=== PATIENT | female | born 1945 | race Caucasian/White ===

== ENCOUNTER 2017-08-10 13:45 | Outpatient (RCR) | payer MEDICARE, SELFPAY ==
--- NOTE | 2017-07-07 10:41 | PT.OTN ---
Current Diagnoses Plantar fascial fibromatosis (07/07/17) Transition note: On July 06, 2017 our therapy services consisting of Speech, Occupational, and Physical Therapy transitioned from the [employer] electronic documentation system to a new [employer] electronic documentation system.?? All documentation prior to July 06 can be found under [employer] saved data. From July 06 forward all medical record documentation will be in [employer] 6.1.
--- NOTE | 2017-07-07 11:58 | PT.OTN ---
Current Diagnoses Plantar fascial fibromatosis (07/07/17) Physical Therapy Treatment Note PT-OP-C Subjective Start: 07/07/17 11:39 Freq: Status: Active Protocol: Activity Type Activity Date Activity User E-Sign Co-Sign Detail Recorded Client Recorded Date Recorded By Document 07/07/17 11:40 [facility] [email or web address] 07/07/17 11:55 [facility] 07/07/17 11:40 OP-PT Subjective [Patient Comments] -Patient Comments Josefa reports she is continuing to have pain worse first thing in the AM and with walking. She has purchased a resting night splint and has worn this for the past few days -Patient Reported Progress Same PT-OP-Q Treatments Start: 07/07/17 11:39 Freq: Status: Active Protocol: Activity Type Activity Date Activity User E-Sign Co-Sign Detail Recorded Client Recorded Date Recorded By Document 07/07/17 11:40 [facility] [email or web address] 07/07/17 11:55 [facility] 07/07/17 11:40 Cardio Equipment [Recumbent Bicycle] -Duration (Minutes) 5 -Resistance lev 4 -Other biodex Therapeutic Exercises [Standing Exercises] 3 -Standing Exercise Name down dog yoga pose -Side bilateral -Reps/Minutes 4 minutes 2 -Standing Exercise Name active hamstring stretch -Side bilateral -Reps/Minutes 2 minutes 1 -Standing Exercise Name standing calf stretch on the YOVANI -Side bilateral -Reps/Minutes 4 min Manual Therapy Treatment [Soft Tissue Mobilization] 1 -Body Location plantar fascia -Mobilization Type Cross-Friction Myofascial Release Rolling Trigger Point Release -Intensity/Depth Deep -Body Position Supine -Comments MFR and cross friction massage to the plantar fascia and heel region . Pin and stretch was also used to help mobilize the fascia. Self-Care/Home Management Treatment [Activities] -Self-Care/Home Management Activities pt to use resting night splint and yoga toes each day and work on home stretching prgram as well as ice her heel PT-OP-R Modalities Start: 07/07/17 11:39 Freq: Status: Active Protocol: Activity Type Activity Date Activity User E-Sign Co-Sign Detail Recorded Client Recorded Date Recorded By Document 07/07/17 11:40 [facility] [email or web address] 07/07/17 11:55 [facility] 07/07/17 11:40 Hot Pack/Cold Pack [Treatment] Ice Massage -Patient Position Supine -Patient Tolerance Good Infrared Treatment [Treatment] plantar fascia -Duration (Minutes) 1 -Dosage (Joules) 60 -Body Position Supine -Continuous/Pulsed Continuous -Program or Protocal chronic muscle tendon pain Ultrasound Therapy [Treatment] right plantar fascia -Treatment Duration (minutes) 8 -Patient Position Supine -Coupling Medium Ultrasound Gel -Frequency Setting (mHz) 1 -Mode Setting Continuous -Intensity Setting (w/cm2) 1.5 -Patient Tolerance Good PT-OP-T Assessment and Plan Start: 07/07/17 11:39 Freq: Status: Active Protocol: Activity Type Activity Date Activity User E-Sign Co-Sign Detail Recorded Client Recorded Date Recorded By Document 07/07/17 11:40 [facility] [email or web address] 07/07/17 11:55 [facility] 07/07/17 11:40 Physical Therapy Assessment [Assessment Summary] -Assessment Josefa continues to have pain at the heel worse with walking and first thing in the AM. She is working on her stretching and icing daily. She has just gotten a resting night splint and has been using this the past few days now. She may benefit from a trial of iontophoresis with dexamethasone. I will call and talk to her doctor about getting a prescription for this. Physical Therapy Plan [Therapeutic Interventions] -Therapeutic Interventions Home Exercise Program Manual Therapy Self-Care/Home Management Soft Tissue Mobilization Therapeutic Exercises -Modalities Cold Pack/Ice Massage Iontophoresis Ultrasound [Next Visit Focus/Plan] -Next Visit Plan call MD requesting iontophoresis referral, continue working on breaking up the adhesions in the plantar fascia and instructions tot he patient to continue using her resting night splint at home and stretches for home
--- NOTE | 2017-07-20 12:56 | PT.OTN ---
Current Diagnoses Plantar fascial fibromatosis (07/20/17) Physical Therapy Treatment Note PT-OP-A Visit Information Start: 07/20/17 12:45 Freq: Status: Active Protocol: Document 07/20/17 12:45 [facility] (Rec: 07/20/17 12:55 [facility] [email or web address]) Out-Patient Physical Therapy Visit Information Visit Information Visit Type Treatment Note Visit Start Time 11:15 Visit Stop Time 12:00 Total Visit Minutes 45 Visit Number 7 Number of FUSE COILER Visits 0 Evaluation Information Evaluation Date 06/02/17 PT-OP-C Subjective Start: 07/07/17 11:39 Freq: Status: Active Protocol: Document 07/20/17 12:45 [facility] (Rec: 07/20/17 12:55 [facility] [email or web address]) OP-PT Subjective Patient Comments Patient Comments Josefa reports her heel is doing better and the night splint is really helping her. PT-OP-Q Treatments Start: 07/07/17 11:39 Freq: Status: Active Protocol: Document 07/20/17 12:45 [facility] (Rec: 07/20/17 12:55 [facility] [email or web address]) Therapeutic Exercises Standing Exercises 3 Standing Exercise Name down dog yoga pose Side bilateral Reps/Minutes 4 minutes 2 Standing Exercise Name active hamstring stretch Side bilateral Reps/Minutes 2 minutes 1 Standing Exercise Name standing calf stretch on the YOVANI Side bilateral Reps/Minutes 4 min Manual Therapy Treatment Soft Tissue Mobilization 1 Body Location plantar fascia Mobilization Type Cross-Friction Myofascial Release Rolling Trigger Point Release Intensity/Depth Deep Body Position Prone Comments MFR and cross friction massage to the plantar fascia and heel region. Pin and stretch was also used to help mobilize the fascia. PT-OP-R Modalities Start: 07/07/17 11:39 Freq: Status: Active Protocol: Document 07/20/17 12:45 [facility] (Rec: 07/20/17 12:55 [facility] [email or web address]) Iontophoresis Treatment right heel Treatment Medication Dexamethasone (-) Dispersive Electrode Placement right heel Treatment Duration (minutes) 240 Right Treatment Medication Dexamethasone (-) Medication Amount (mL) (ml) 1 PT-OP-T Assessment and Plan Start: 07/07/17 11:39 Freq: Status: Active Protocol: Document 07/20/17 12:45 [facility] (Rec: 07/20/17 12:55 [facility] [email or web address]) Physical Therapy Assessment Assessment Summary Assessment Josefa was given a trial of dexamethasone today over the right heel. To palpation she is not as point tender over the heel on her right foot. Physical Therapy Plan Frequency and Duration Frequency of Treatment 2x/Week Therapeutic Interventions Therapeutic Interventions Home Exercise Program Manual Therapy Self-Care/Home Management Soft Tissue Mobilization Therapeutic Exercises Next Visit Focus/Plan Next Visit Plan continue with stretches, HEP and manual therapy treatment. Check in on iontophoresis tolerance
--- NOTE | 2017-07-22 16:42 | PT.OTN ---
Current Diagnoses Plantar fascial fibromatosis (07/22/17) Physical Therapy Treatment Note PT-OP-A Visit Information Start: 07/20/17 12:45 Freq: Status: Active Protocol: Document 07/22/17 16:22 [facility] (Rec: 07/22/17 16:30 [facility] [email or web address]) Out-Patient Physical Therapy Visit Information Visit Information Visit Type Treatment Note Visit Start Time 13:00 Visit Stop Time 13:45 Total Visit Minutes 45 Visit Number 8 Number of JUNIOR BUSINESS ANALYST Visits 0 PT-OP-C Subjective Start: 07/07/17 11:39 Freq: Status: Active Protocol: Document 07/22/17 16:35 [facility] (Rec: 07/22/17 16:42 [facility] [email or web address]) OP-PT Subjective Patient Comments Patient Comments Josefa reports she felt the ionto phoresis helped last visit Patient Reported Progress Improving PT-OP-Q Treatments Start: 07/07/17 11:39 Freq: Status: Active Protocol: Document 07/22/17 16:35 [facility] (Rec: 07/22/17 16:42 [facility] [email or web address]) Cardio Equipment Recumbent Elliptical ([employer]) Duration (Minutes) 5 Therapeutic Exercises Standing Exercises 2 Standing Exercise Name active hamstring stretch Side bilateral Reps/Minutes 4 min 1 Standing Exercise Name standing calf stretch on the YOVANI Side bilateral Reps/Minutes 4 min Manual Therapy Treatment Soft Tissue Mobilization 1 Body Location plantar fascia Mobilization Type Cross-Friction Myofascial Release Rolling Trigger Point Release Intensity/Depth Deep Body Position Prone Comments MFR and cross friction massage to the plantar fascia and heel region. Pin and stretch was also used to help mobilize the fascia. PT-OP-R Modalities Start: 07/07/17 11:39 Freq: Status: Active Protocol: Document 07/22/17 16:35 [facility] (Rec: 07/22/17 16:42 [facility] [email or web address]) Hot Pack/Cold Pack Treatment Ice Massage Location right heel Patient Position Supine Patient Tolerance Good Iontophoresis Treatment right heel Treatment Medication Dexamethasone (-) Dispersive Electrode Placement right heel Treatment Duration (minutes) 240 Patient Tolerance Good Ultrasound Therapy Treatment right plantar fascia Treatment Duration (minutes) 8 Patient Position Supine Coupling Medium Ultrasound Gel Frequency Setting (mHz) 1 Mode Setting Continuous Intensity Setting (w/cm2) 1.5 Patient Tolerance Good PT-OP-T Assessment and Plan Start: 07/07/17 11:39 Freq: Status: Active Protocol: Document 07/22/17 16:35 [facility] (Rec: 07/22/17 16:42 [facility] [email or web address]) Physical Therapy Assessment Rehab Potential Rehabilitation Potential Good Assessment Summary Assessment Josefa is doing well with treatment and pain levels are decreasing. Her bony prominance that was in her heel is decreasing in size Physical Therapy Plan Frequency and Duration Frequency of Treatment 2x/Week Plan of Care Start Date 06/02/17 Plan of Care End Date 07/22/17 Therapeutic Interventions Therapeutic Interventions Home Exercise Program Manual Therapy Self-Care/Home Management Soft Tissue Mobilization Therapeutic Exercises Next Visit Focus/Plan Next Visit Plan continue with stretches, HEP, modalities and manual therapy treatment.
--- NOTE | 2017-07-22 16:43 | PT.OTN ---
Current Diagnoses Plantar fascial fibromatosis (07/22/17) Physical Therapy Treatment Note PT-OP-A Visit Information Start: 07/20/17 12:45 Freq: Status: Active Protocol: Document 07/22/17 16:22 [facility] (Rec: 07/22/17 16:30 [facility] [email or web address]) Out-Patient Physical Therapy Visit Information Visit Information Visit Type Treatment Note Visit Start Time 13:00 Visit Stop Time 13:45 Total Visit Minutes 45 Visit Number 8 Number of WIRE TURNING MACHINE OPERATOR Visits 0 PT-OP-C Subjective Start: 07/07/17 11:39 Freq: Status: Active Protocol: Document 07/22/17 16:35 [facility] (Rec: 07/22/17 16:42 [facility] [email or web address]) OP-PT Subjective Patient Comments Patient Comments Josefa reports she felt the ionto phoresis helped last visit Patient Reported Progress Improving PT-OP-Q Treatments Start: 07/07/17 11:39 Freq: Status: Active Protocol: Document 07/22/17 16:35 [facility] (Rec: 07/22/17 16:42 [facility] [email or web address]) Cardio Equipment Recumbent Elliptical ([employer]) Duration (Minutes) 5 Therapeutic Exercises Standing Exercises 2 Standing Exercise Name active hamstring stretch Side bilateral Reps/Minutes 4 min 1 Standing Exercise Name standing calf stretch on the YOVANI Side bilateral Reps/Minutes 4 min Manual Therapy Treatment Soft Tissue Mobilization 1 Body Location plantar fascia Mobilization Type Cross-Friction Myofascial Release Rolling Trigger Point Release Intensity/Depth Deep Body Position Prone Comments MFR and cross friction massage to the plantar fascia and heel region. Pin and stretch was also used to help mobilize the fascia. PT-OP-R Modalities Start: 07/07/17 11:39 Freq: Status: Active Protocol: Document 07/22/17 16:35 [facility] (Rec: 07/22/17 16:42 [facility] [email or web address]) Hot Pack/Cold Pack Treatment Ice Massage Location right heel Patient Position Supine Patient Tolerance Good Iontophoresis Treatment right heel Treatment Medication Dexamethasone (-) Dispersive Electrode Placement right heel Treatment Duration (minutes) 240 Patient Tolerance Good Ultrasound Therapy Treatment right plantar fascia Treatment Duration (minutes) 8 Patient Position Supine Coupling Medium Ultrasound Gel Frequency Setting (mHz) 1 Mode Setting Continuous Intensity Setting (w/cm2) 1.5 Patient Tolerance Good PT-OP-T Assessment and Plan Start: 07/07/17 11:39 Freq: Status: Active Protocol: Document 07/22/17 16:35 [facility] (Rec: 07/22/17 16:42 [facility] [email or web address]) Physical Therapy Assessment Rehab Potential Rehabilitation Potential Good Assessment Summary Assessment Josefa is doing well with treatment and pain levels are decreasing. Her bony prominance that was in her heel is decreasing in size Physical Therapy Plan Frequency and Duration Frequency of Treatment 2x/Week Plan of Care Start Date 06/02/17 Plan of Care End Date 07/22/17 Therapeutic Interventions Therapeutic Interventions Home Exercise Program Manual Therapy Self-Care/Home Management Soft Tissue Mobilization Therapeutic Exercises Next Visit Focus/Plan Next Visit Plan continue with stretches, HEP, modalities and manual therapy treatment.
--- NOTE | 2017-08-03 15:33 | PT.OTN ---
Current Diagnoses Plantar fascial fibromatosis (08/03/17) Physical Therapy Treatment Note PT-OP-A Visit Information Start: 07/20/17 12:45 Freq: Status: Active Protocol: Document 08/03/17 15:19 [facility] (Rec: 08/03/17 15:33 [facility] [email or web address]) Out-Patient Physical Therapy Visit Information Visit Information Visit Type Progress Note Visit Start Time 13:00 Visit Stop Time 13:45 Total Visit Minutes 45 Visit Number 9 Number of APPAREL SALES ASSOCIATE Visits 0 Evaluation Information Evaluation Date 06/02/17 PT-OP-C Subjective Start: 07/07/17 11:39 Freq: Status: Active Protocol: Document 08/03/17 15:19 [facility] (Rec: 08/03/17 15:33 [facility] [email or web address]) OP-PT Subjective Patient Comments Patient Comments Josefa reports she is doing better overall but she took care of her grandson these past two weeks and didn't do as much of her stretching and she can tell she is tighter. She is using the resting night splint each night and feels this really is helping Patient Reported Progress Improving OP-PT Pain Assessment Pain Assessment Grid Paper Pain Assessment Grid Completed Yes Comments Pain Comments pain 4/10 now PT-OP-K Range of Motion Start: 08/03/17 15:18 Freq: Status: Active Protocol: Document 08/03/17 15:19 [facility] (Rec: 08/03/17 15:33 [facility] [email or web address]) Ankle and Foot Goniometric Range of Motion Ankle and Foot Measured in Degrees Right Testing Position Supine Dorsiflexion with Knee Extended 10 Plantarflexion 8 Ankle and Foot ROM Limitations Comments limited in great toe extension due to bunion surgery with fusion PT-OP-Q Treatments Start: 07/07/17 11:39 Freq: Status: Active Protocol: Document 08/03/17 15:19 [facility] (Rec: 08/03/17 15:33 [facility] [email or web address]) Cardio Equipment Recumbent Elliptical ([employer]) Duration (Minutes) 5 Seat Position level 4 Therapeutic Exercises Standing Exercises 3 Standing Exercise Name down dog yoga pose Side bilateral Reps/Minutes 4 minutes 2 Standing Exercise Name active hamstring stretch Side bilateral Reps/Minutes 4 min 1 Standing Exercise Name standing calf stretch on the YOVANI Side bilateral Reps/Minutes 4 min Manual Therapy Treatment Soft Tissue Mobilization 1 Body Location plantar fascia Mobilization Type Cross-Friction Myofascial Release Rolling Trigger Point Release Intensity/Depth Deep Body Position Prone Comments MFR and cross friction massage to the plantar fascia and heel region. Pin and stretch was also used to help mobilize the fascia. PT-OP-R Modalities Start: 07/07/17 11:39 Freq: Status: Active Protocol: Document 08/03/17 15:19 [facility] (Rec: 08/03/17 15:33 [facility] [email or web address]) Iontophoresis Treatment right heel Treatment Medication Dexamethasone (-) Dispersive Electrode Placement right heel Treatment Duration (minutes) 240 Patient Tolerance Good Ultrasound Therapy Treatment right plantar fascia Treatment Duration (minutes) 8 Patient Position Supine Coupling Medium Ultrasound Gel Frequency Setting (mHz) 1 Mode Setting Continuous Intensity Setting (w/cm2) 1.5 Patient Tolerance Good PT-OP-T Assessment and Plan Start: 07/07/17 11:39 Freq: Status: Active Protocol: Document 08/03/17 15:19 [facility] (Rec: 08/03/17 15:33 [facility] [email or web address]) Physical Therapy Assessment Progress Towards Goals Progress Comments Josefa is making good progress towards her goals. Her pain levels are slowly starting to decrease and pain is reducing. She is not as sore first thing in the am as she was and she is able to walk a little more. Her symptoms progress as the day goes on. She has made improvements with calf flexibility and DF ankle ROM. She is limited in great toe extension due to her surgery and the plantar fascia attachments at the great toe are very tight. I have worked on MFR of the plantar fascia and Josefa has a home flexibility program that she is working hard on. She has also responded well to the iontophoresis and we have done 3 treatments of this. Josefa would like to be seen for new orthotics. She would benefit from continued PT Physical Therapy Plan Frequency and Duration Frequency of Treatment 1x/Week Plan of Care Start Date 08/03/17 Plan of Care End Date 09/28/17 Therapeutic Interventions Therapeutic Interventions Home Exercise Program Manual Therapy Self-Care/Home Management Soft Tissue Mobilization Therapeutic Exercises Modalities Cold Pack/Ice Massage Iontophoresis Ultrasound Next Visit Focus/Plan Next Visit Plan continue with stretches, HEP, modalities and manual therapy treatment. Please Sign and Return: I have reviewed this Plan of Care and certify that the skilled therapy services above are required to meet the patient???s needs. Physician Signature Date Printed Name and Credentials Clinical Instructor Signature Printed Name and Credentials
--- NOTE | 2017-08-03 15:41 | PT.OPPN ---
Current Diagnoses Plantar fascial fibromatosis (08/03/17) Physical Therapy Progress Note PT-OP-A Visit Information Start: 07/20/17 12:45 Freq: Status: Active Protocol: Document 08/03/17 15:19 [facility] (Rec: 08/03/17 15:33 [facility] [email or web address]) Out-Patient Physical Therapy Visit Information Visit Information Visit Type Progress Note Visit Start Time 13:00 Visit Stop Time 13:45 Total Visit Minutes 45 Visit Number 9 Number of CHART SNATCHER Visits 0 Evaluation Information Evaluation Date 06/02/17 PT-OP-C Subjective Start: 07/07/17 11:39 Freq: Status: Active Protocol: Document 08/03/17 15:19 [facility] (Rec: 08/03/17 15:33 [facility] [email or web address]) OP-PT Subjective Patient Comments Patient Comments Josefa reports she is doing better overall but she took care of her grandson these past two weeks and didn't do as much of her stretching and she can tell she is tighter. She is using the resting night splint each night and feels this really is helping Patient Reported Progress Improving OP-PT Pain Assessment Pain Assessment Grid Paper Pain Assessment Grid Completed Yes Comments Pain Comments pain 4/10 now PT-OP-K Range of Motion Start: 08/03/17 15:18 Freq: Status: Active Protocol: Document 08/03/17 15:19 [facility] (Rec: 08/03/17 15:33 [facility] [email or web address]) Ankle and Foot Goniometric Range of Motion Ankle and Foot Measured in Degrees Right Testing Position Supine Dorsiflexion with Knee Extended 10 Plantarflexion 8 Ankle and Foot ROM Limitations Comments limited in great toe extension due to bunion surgery with fusion PT-OP-T Assessment and Plan Start: 07/07/17 11:39 Freq: Status: Active Protocol: Document 08/03/17 15:19 [facility] (Rec: 08/03/17 15:33 [facility] [email or web address]) Physical Therapy Assessment Impairments Impairments Gait Pain Soft Tissue Mobility Tone Goals Two Impairment Myofascial restrictions of the right plantar fascia Short Term Goal (STG) Continue to improve myofascial mobility of the plantar fascia on the right foot One Impairment plantar fascial pain rated 4/ 10 Short Term Goal (STG) Josefa will continue to note a decrease in pain in her right plantar fascial attachment to the calcaneous and is able to continue to increase her walking distance without pain STG Duration 4 weeks Progress Towards Goals Progress Comments Josefa is making good progess towards her goals. Her pain levels are slowly starting to decrease and pain is reducing. She is not as sore first thing in the am as she was and she is able to walk a little more. Her symptoms progress as the day goes on. She has made improvements with calf flexibility and DF ankle ROM. She is limited in great toe extension due to her surgery and the plantar fascia attachments at the great toe are very tight. I have worked on MFR of the plantar fascia and Josefa has a home flexibility program that she is working hard on. She has also responded well to the iontophoresis and we have done 3 treatments of this. Josefa would like to be seen for new orthotics. She would benefit from continued PT Physical Therapy Plan Frequency and Duration Frequency of Treatment 1x/Week Plan of Care Start Date 08/03/17 Plan of Care End Date 09/28/17 Therapeutic Interventions Therapeutic Interventions Home Exercise Program Manual Therapy Self-Care/Home Management Soft Tissue Mobilization Therapeutic Exercises Modalities Cold Pack/Ice Massage Iontophoresis Ultrasound Next Visit Focus/Plan Next Visit Plan continue with stretches, HEP, modalities and manual therapy treatment. Please Sign and Return: I have reviewed this Plan of Care and certify that the skilled therapy services above are required to meet the patient???s needs. Physician Signature Date Printed Name and Credentials Clinical Instructor Signature Printed Name and Credentials
--- NOTE | 2017-08-10 17:30 | PT.OTN ---
Current Diagnoses Plantar fascial fibromatosis (08/10/17) Physical Therapy Treatment Note PT-OP-A Visit Information Start: 07/20/17 12:45 Freq: Status: Active Protocol: Document 08/10/17 17:26 [facility] (Rec: 08/10/17 17:30 [facility] [email or web address]) Out-Patient Physical Therapy Visit Information Visit Information Visit Type Treatment Note Visit Start Time 13:45 Visit Stop Time 14:30 Total Visit Minutes 45 Visit Number 10 Number of SYSTEMS ANALYST DEVELOPER Visits 0 PT-OP-C Subjective Start: 07/07/17 11:39 Freq: Status: Active Protocol: Document 08/10/17 17:26 [facility] (Rec: 08/10/17 17:30 [facility] [email or web address]) OP-PT Subjective Patient Comments Patient Comments Josefa states her symptoms continue to improve. She does have a appointment with Dr. Li to look into getting new orthotics made Patient Reported Progress Improving PT-OP-K Range of Motion Start: 08/03/17 15:18 Freq: Status: Active Protocol: Document 08/03/17 15:19 [facility] (Rec: 08/03/17 15:33 [facility] [email or web address]) Ankle and Foot Goniometric Range of Motion Ankle and Foot Measured in Degrees Right Testing Position Supine Dorsiflexion with Knee Extended 10 Plantarflexion 8 Ankle and Foot ROM Limitations Comments limited in great toe extension due to bunion surgery with fusion PT-OP-Q Treatments Start: 07/07/17 11:39 Freq: Status: Active Protocol: Document 08/10/17 17:26 [facility] (Rec: 08/10/17 17:30 [facility] [email or web address]) Therapeutic Exercises Standing Exercises 2 Standing Exercise Name active hamstring stretch Side bilateral Reps/Minutes 4 min 1 Standing Exercise Name standing calf stretch on the YOVANI Side bilateral Reps/Minutes 4 min Manual Therapy Treatment Soft Tissue Mobilization 1 Body Location plantar fascia Mobilization Type Cross-Friction Myofascial Release Rolling Trigger Point Release Intensity/Depth Deep Body Position Prone Comments MFR and cross friction massage to the plantar fascia and heel region. Pin and stretch was also used to help mobilize the fascia. PT-OP-R Modalities Start: 07/07/17 11:39 Freq: Status: Active Protocol: Document 08/10/17 17:30 [facility] (Rec: 08/10/17 17:30 [facility] [email or web address]) Iontophoresis Treatment right heel Treatment Medication Dexamethasone (-) Dispersive Electrode Placement right heel Treatment Duration (minutes) 240 Patient Tolerance Good Ultrasound Therapy Treatment right plantar fascia Treatment Duration (minutes) 8 Patient Position Supine Coupling Medium Ultrasound Gel Frequency Setting (mHz) 1 Mode Setting Continuous Intensity Setting (w/cm2) 1.5 PT-OP-T Assessment and Plan Start: 07/07/17 11:39 Freq: Status: Active Protocol: Document 08/10/17 17:26 [facility] (Rec: 08/10/17 17:30 [facility] [email or web address]) Physical Therapy Assessment Assessment Summary Assessment Josefa continues to note a decrease in her symptoms Physical Therapy Plan Frequency and Duration Frequency of Treatment 1x/Week Plan of Care Start Date 08/03/17 Plan of Care End Date 09/28/17 Therapeutic Interventions Therapeutic Interventions Home Exercise Program Manual Therapy Self-Care/Home Management Soft Tissue Mobilization Therapeutic Exercises Modalities Cold Pack/Ice Massage Iontophoresis Ultrasound Next Visit Focus/Plan Next Visit Plan continue with stretches, HEP, modalities and manual therapy treatment. Please Sign and Return: I have reviewed this Plan of Care and certify that the skilled therapy services above are required to meet the patient?s needs. Physician Signature Date Printed Name and Credentials Clinical Instructor Signature Printed Name and Credentials
--- NOTE | 2017-09-29 11:42 | PT.OPDS ---
Current Diagnoses Plantar fascial fibromatosis (08/10/17) Provider Visit Care Team Role Provider Type Latesha Fernandes PA-C Family Provider Advanced Floor Attendant Primary Care Provider Specialty: Internal Medicine Address: [address] [place] [address], [address] Email: Alejandra Li DPM Attending Provider Physician Specialty: Podiatry Address: [address] [place] [address], [phone] Email: [email or web address] Visit Number Visit Number 10 Discharge Summary PT-OP-C Subjective Start: 07/07/17 11:39 Freq: Status: Active Protocol: Document 08/10/17 17:26 [facility] (Rec: 08/10/17 17:30 [facility] [email or web address]) OP-PT Subjective Patient Comments Patient Comments Josefa states her symptoms continue to improve. She does have a appointment with Dr. Li to look into getting new orthotics made Patient Reported Progress Improving PT-OP-K Range of Motion Start: 08/03/17 15:18 Freq: Status: Active Protocol: Document 08/03/17 15:19 [facility] (Rec: 08/03/17 15:33 [facility] [email or web address]) Ankle and Foot Goniometric Range of Motion Ankle and Foot Measured in Degrees Right Testing Position Supine Dorsiflexion with Knee Extended 10 Plantarflexion 8 Ankle and Foot ROM Limitations Comments limited in great toe extension due to bunion surgery with fusion PT-OP-T Assessment and Plan Start: 07/07/17 11:39 Freq: Status: Active Protocol: Document 09/29/17 11:39 [facility] (Rec: 09/29/17 11:42 [facility] [email or web address]) Physical Therapy Assessment Progress Towards Goals Progress Towards Goals Progressing Toward Goals Progress Comments good progress overall towards goals Assessment Summary Assessment Overall Josefa has noted a decrease with her plantar fascitis symptoms. She was worked on her own these past two months and has stopped in for iontophoresis treatments only. She feels at this time she is doing well doing the stretches on her own and will keep up with her home program. She will be discharged from PT at this time Physical Therapy Plan Discharge Physical Therapy Discharge Reasons No Longer Attending PT Discharge Comments good overall progress towards goals and Josefa felt good enough to continued independently with her exercise program.
== END 2017-10-13 15:18 ==
LOC: PHYS 13:45
PROVIDERS: Family Provider Physician Assistant; PCP Physician Assistant; Visit Provider Podiatrist
DX: M72.2 Plantar fascial fibromatosis (principal)
CPT/HCPCS: 97035; 97110; 97140

== ENCOUNTER → 2017-09-27 10:11 | Outpatient (CLI) | payer MEDICARE, SELFPAY ==
--- NOTE | 2017-09-27 | DI.RAD.S_ITS ---
PROCEDURE: FL BARIUM SWALLOW W SPEECH INDICATIONS: . TECHNIQUE: Examination was conducted in conjunction with speech pathology per standard protocol. In the lateral projection, filming was performed of the patient swallowing. AP projection filming may also be performed with patient swallowing. COMPARISON: None. FINDINGS: Function: The oral preparatory phase appears normal, with proper containment. The subsequent oral propulsive phase, pharyngeal phase, and esophageal phase of swallowing also appear normal with all proffered substances. No laryngotracheal penetration or aspiration. No pathologic vallecular pooling. Transit of barium tablet through the cervical esophagus without holdup. Morphology: No cricopharyngeal bar is identified. No cervical esophageal webs. No Zenker's diverticulum. No strictures. IMPRESSION: 1. Normal modified barium swallow. Please see speech therapist report. 2. Degenerative cervical spine disease with disc narrowing C5-6 and C6-7, anterolisthesis and reversal of cervical lordosis at C4-5. Dictated by: Gino Kong M.D. on 09/27/2017 at 10:59 Approved by: Gino Kong M.D. on 09/27/2017 at 11:01
--- NOTE | 2017-09-27 11:45 | ST.SWALLOW ---
Visit Care Team Role Provider Type Latesha Fernandes PA-C Attending Provider Advanced Screedman/Laborer Family Provider Primary Care Provider Specialty: Internal Medicine Address: [address] [place] [address], [id number] Email: Modified Barium Swallow Study AUTOMOBILE PAINTER Modified Barium Swallow Study Start: 09/27/17 16:54 Freq: Status: Active Protocol: Document 09/27/17 11:45 [facility] (Rec: 09/27/17 17:11 [facility] [id number]) Modified Barium Swallow Study Total Time Visit Start Time 10:30 Visit Stop Time 11:30 Total Visit Minutes [address] Whitlock Reason for Referral Dysphagia Setting Setting Outpatient Care Patient Information Identification Type Name Date of Patient History Patient is a 72-year-old female referred by Dr Whitlock for a Modified Barium Swallow Study. She is in very good health and reported no respiratory issues, recent weight loss, decrease in appetite or neurological change. No reflux or esophageal issues reported. She did state that occasionally when she mixes food and liquids, she does begin to cough and clear her throat. She was concered about this because her late mother experienced similar issues as well as a significant decline in vocal quality and expressive communication. Josefa wanted to particiapte in the MBS to determine if her cough/ throat clear episodes are incidental or secondary to a developing oropharyngeal issue . Subjective Observations Patient arrived on time for her MBS. No family present. No complaint of pain. No difficulty following instructions throughout the study. Very coherent and able to comprehend education from AUTOMOBILE PAINTER without difficulty. Patient Positioning Position View Lat-A/P Imaging Lateral View Textures Administered Trials Presented Thin Liquid via Cup [place] Liquid via Cup Dysphagia Blenderized Textures Dysphagia Mechanical Textures Regular Textures Barium Tablet Oral Phase Source: MBSIMP (TM) (C) Bolus Specific Scoring Grid Lip Closure No Impairment (WNL) Tongue Control During Bolus Hold WFL Bolus Prep/Mastication WFL Bolus Transport/Lingual Motion WFL A/P Lingual Propulsion Delay No Oral Residue No Impairment (WNL) Residue Clearing No Impairment (WNL) Nasal Regurgitation No Additional Oral Phase Observations Observed minimally reduced lingua-velar seal, allowing mild posterior spillage into pharynx to the valleculae and pyriform sinuses. However, no other oral impairment observed . No oral dysphagia. Pharyngeal Phase Source: MBSIMP (TM) (C) Bolus Specific Scoring Grid Delayed Initiation of Pharyngeal Swallow Yes Number of Seconds Delayed (seconds) .5 seconds Soft Palate Elevation No Impairment (WNL) Tongue Base Strength/Range of Motion WFL Residue Along the Tongue Base Yes: Trace amount, clearing with double swallow Clearance of Residue Along Tongue Base No Impairment (WNL) Laryngeal Elevation No Impairment (WNL) Anterior Hyoid Movement No Impairment (WNL) Epiglottic Range of Motion No Impairment (WNL) Vallecular Residue No Clearance of Vallecular Residue No Impairment (WNL) Laryngeal Vestibular Closure No Impairment (WNL) Pharyngeal Stripping Wave No Impairment (WNL) Pharyngeal Contraction No Impairment (WNL) Posterior Pharyngeal Wall Residue No Clearance of Posterior Pharyngeal Wall No Impairment (WNL) Residue Upper Esophageal Sphincter Opening No Impairment (WNL) Residue in the Pyriform Sinuses No Clearance of Residue in the Pyriform No Impairment (WNL) Sinuses Esophageal Clearance Upright Position No Impairment (WNL) Pharyngoesophageal Backflow Observed No Additional Pharyngeal Phase Observations No pharyngeal impairment. Mild premature spillage into pharynx prior to swallow initiation, however, able to clear without penetration or aspiration. No residue observed after the swallow. Observed barium tablet to sit in valleculae after initial cup sip of thin, but immediately washed down with second cup sip of thin liquid. No pharyngeal dysphagia. A/P View Textures Administered Trials Presented Thin Liquid via Cup A/P View Observations Pharyngeal Contraction No Impairment (WNL) Vocal Fold Function Good Esophageal Function No Impairment (WNL) Esophageal Clearance Upright Position No Impairment (WNL) Additional Observations No significant findings in AP view. No impairment oberved. Please see Radiologist's report for further details. Esophageal Observations Esophageal Function No significant esophageal findings. Please see Radiologist's report for further details. Clinical Impressions Dysphagia Type No dysphagia Findings Patient presents with a normal swallow function. Observed mildly reduced lingua-velar seal, allowing minimal premature spillage into pharynx prior to swallow initiation. However, able to clear all trials without penetration or aspiration. No pharyngeal residue observed throughout the study. Observed trace tongue base residue after thin and nectar thick liquid trials, but cleared wtih additional dry swallows. At this time, no significant oropharyngeal findings to be reported. Patient received education from AUTOMOBILE PAINTER as well as images from her study to further clarify the nature of her swallow. She verbalized understanding of all information. AUTOMOBILE PAINTER recommended a brief pause before swallowing to improve lingua-velar seal and recommended that if the patient begins to experience an increase in coughing during intake, to return to her PCP for additional care. AUTOMOBILE PAINTER invited the patient to return for outpatient therapy should her condition worsen in the future, but at this time, no therapy is warranted. The patient verbalized understanding and agreed. Rehabilitation Potential Excellent Patient Appropriate for Therapy No: No dysphagia Recommendations Diet Liquids Order Thin Diet Order Regular Medication Recommendation As Tolerated Aspiration Precautions Recommended Precautions Upright at 90 Degrees Alternate Liquids/Solids Small Bites/Sips Additional Precautions Intentional swallowing behavior during meals Treatment Plan Additional Therapy Recommendations No therapy recommended at this time Placement Recommendation After Discharge Home Additional Recommendations/Comments If any increase in difficulty swallowing develops, please reconsult speech thearpy. If any voice issues arise, please reconsult speech therapy. At this time, patient presents with no impairment. No further intervention from speech therapy warranted at this time . Thank you for the consult. AUTOMOBILE PAINTER Oral Motor Exam Start: 09/27/17 16:54 Freq: Status: Active Protocol: Document 09/27/17 11:45 [facility] (Rec: 09/27/17 17:11 [facility] [id number]) Oral Motor Examination Face Facial Symmetry Symmetrical Facial Movement Controlled Mouth Teeth Characteristics Intact/Normal Pucker Lips Normal Smile Normal Puff Cheeks Normal Tongue Size Normal Tongue Movement Protrusion/Retraction Strength WNL Protrusion/Retraction Range of Movement Normal Protrusion/Retraction Coordination WNL Elevation/Depression Strength WNL Elevation/Despression Range of Movement Normal Elevation/Depression Coordination WNL Lateralization Strength WNL Lateralization Range of Movement Normal Lateralization Coordination WNL Palate Soft Palate Description Normal Hard Palate Description Normal Velopharyngeal Movement Normal Hyolaryngeal Movement Hyolaryngeal Movement Normal Elevation Normal Excursion Volitional Cough/Swallow Comments Strong and productive
--- NOTE | 2017-09-27 11:45 | ST.SWALLOW ---
Visit Care Team Role Provider Type Latesha Fernandes PA-C Attending Provider Advanced Nursing Agency Manager Family Provider Primary Care Provider Specialty: Internal Medicine Address: [address] [place] [address], [address] Email: Modified Barium Swallow Study FORENSIC IDENTIFICATION SPECIALIST Modified Barium Swallow Study Start: 09/27/17 16:54 Freq: Status: Active Protocol: Document 09/27/17 11:45 [facility] (Rec: 09/27/17 17:11 [facility] [id number]) Modified Barium Swallow Study Total Time Visit Start Time 10:30 Visit Stop Time 11:30 Total Visit Minutes 60 Referral Referring Physician Latesha Fernandes PA-C Reason for Referral Dysphagia Setting Setting Outpatient Care Patient Information Identification Type Name Date of Patient History Patient is a 72-year-old female referred by Dr Whitlock for a Modified Barium Swallow Study. She is in very good health and reported no respiratory issues, recent weight loss, decrease in appetite or neurological change. No reflux or esophageal issues reported. She did state that occasionally when she mixes food and liquids, she does begin to cough and clear her throat. She was concered about this because her late mother experienced similar issues as well as a significant decline in vocal quality and expressive communication. Josefa wanted to particiapte in the MBS to determine if her cough/ throat clear episodes are incidental or secondary to a developing oropharyngeal issue . Subjective Observations Patient arrived on time for her MBS. No family present. No complaint of pain. No difficulty following instructions throughout the study. Very coherent and able to comprehend education from FORENSIC IDENTIFICATION SPECIALIST without difficulty. Patient Positioning Position View Lat-A/P Imaging Lateral View Textures Administered Trials Presented Thin Liquid via Cup [place] Liquid via Cup Dysphagia Blenderized Textures Dysphagia Mechanical Textures Regular Textures Barium Tablet Oral Phase Source: MBSIMP (TM) (C) Bolus Specific Scoring Grid Lip Closure No Impairment (WNL) Tongue Control During Bolus Hold WFL Bolus Prep/Mastication WFL Bolus Transport/Lingual Motion WFL A/P Lingual Propulsion Delay No Oral Residue No Impairment (WNL) Residue Clearing No Impairment (WNL) Nasal Regurgitation No Additional Oral Phase Observations Observed minimally reduced lingua-velar seal, allowing mild posterior spillage into pharynx to the valleculae and pyriform sinuses. However, no other oral impairment observed . No oral dysphagia. Pharyngeal Phase Source: MBSIMP (TM) (C) Bolus Specific Scoring Grid Delayed Initiation of Pharyngeal Swallow Yes Number of Seconds Delayed (seconds) .5 seconds Soft Palate Elevation No Impairment (WNL) Tongue Base Strength/Range of Motion WFL Residue Along the Tongue Base Yes: Trace amount, clearing with double swallow Clearance of Residue Along Tongue Base No Impairment (WNL) Laryngeal Elevation No Impairment (WNL) Anterior Hyoid Movement No Impairment (WNL) Epiglottic Range of Motion No Impairment (WNL) Vallecular Residue No Clearance of Vallecular Residue No Impairment (WNL) Laryngeal Vestibular Closure No Impairment (WNL) Pharyngeal Stripping Wave No Impairment (WNL) Pharyngeal Contraction No Impairment (WNL) Posterior Pharyngeal Wall Residue No Clearance of Posterior Pharyngeal Wall No Impairment (WNL) Residue Upper Esophageal Sphincter Opening No Impairment (WNL) Residue in the Pyriform Sinuses No Clearance of Residue in the Pyriform No Impairment (WNL) Sinuses Esophageal Clearance Upright Position No Impairment (WNL) Pharyngoesophageal Backflow Observed No Additional Pharyngeal Phase Observations No pharyngeal impairment. Mild premature spillage into pharynx prior to swallow initiation, however, able to clear without penetration or aspiration. No residue observed after the swallow. Observed barium tablet to sit in valleculae after initial cup sip of thin, but immediately washed down with second cup sip of thin liquid. No pharyngeal dysphagia. A/P View Textures Administered Trials Presented Thin Liquid via Cup A/P View Observations Pharyngeal Contraction No Impairment (WNL) Vocal Fold Function Good Esophageal Function No Impairment (WNL) Esophageal Clearance Upright Position No Impairment (WNL) Additional Observations No significant findings in AP view. No impairment oberved. Please see Radiologist's report for further details. Esophageal Observations Esophageal Function No significant esophageal findings. Please see Radiologist's report for further details. Clinical Impressions Dysphagia Type No dysphagia Findings Patient presents with a normal swallow function. Observed mildly reduced lingua-velar seal, allowing minimal premature spillage into pharynx prior to swallow initiation. However, able to clear all trials without penetration or aspiration. No pharyngeal residue observed throughout the study. Observed trace tongue base residue after thin and nectar thick liquid trials, but cleared wtih additional dry swallows. At this time, no significant oropharyngeal findings to be reported. Patient received education from FORENSIC IDENTIFICATION SPECIALIST as well as images from her study to further clarify the nature of her swallow. She verbalized understanding of all information. FORENSIC IDENTIFICATION SPECIALIST recommended a brief pause before swallowing to improve lingua-velar seal and recommended that if the patient begins to experience an increase in coughing during intake, to return to her PCP for additional care. FORENSIC IDENTIFICATION SPECIALIST invited the patient to return for outpatient therapy should her condition worsen in the future, but at this time, no therapy is warranted. The patient verbalized understanding and agreed. Rehabilitation Potential Excellent Patient Appropriate for Therapy No: No dysphagia Recommendations Diet Liquids Order Thin Diet Order Regular Medication Recommendation As Tolerated Aspiration Precautions Recommended Precautions Upright at 90 Degrees Alternate Liquids/Solids Small Bites/Sips Additional Precautions Intentional swallowing behavior during meals Treatment Plan Additional Therapy Recommendations No therapy recommended at this time Placement Recommendation After Discharge Home Additional Recommendations/Comments If any increase in difficulty swallowing develops, please reconsult speech thearpy. If any voice issues arise, please reconsult speech therapy. At this time, patient presents with no impairment. No further intervention from speech therapy warranted at this time . Thank you for the consult. FORENSIC IDENTIFICATION SPECIALIST Oral Motor Exam Start: 09/27/17 16:54 Freq: Status: Active Protocol: Document 09/27/17 11:45 [facility] (Rec: 09/27/17 17:11 [facility] [id number]) Oral Motor Examination Face Facial Symmetry Symmetrical Facial Movement Controlled Mouth Teeth Characteristics Intact/Normal Pucker Lips Normal Smile Normal Puff Cheeks Normal Tongue Size Normal Tongue Movement Protrusion/Retraction Strength WNL Protrusion/Retraction Range of Movement Normal Protrusion/Retraction Coordination WNL Elevation/Depression Strength WNL Elevation/Despression Range of Movement Normal Elevation/Depression Coordination WNL Lateralization Strength WNL Lateralization Range of Movement Normal Lateralization Coordination WNL Palate Soft Palate Description Normal Hard Palate Description Normal Velopharyngeal Movement Normal Hyolaryngeal Movement Hyolaryngeal Movement Normal Elevation Normal Excursion Volitional Cough/Swallow Comments Strong and productive
== END ==
PROVIDERS: Family Provider Physician Assistant; PCP Physician Assistant; Visit Provider Physician Assistant
DX: R93.8 Abnormal findings on diagnostic imaging of other specified body structures (principal); M50.322 Other cervical disc degeneration at C5-C6 level; M43.12 Spondylolisthesis, cervical region
CPT/HCPCS: 74230; 92611

== ENCOUNTER → 2017-11-27 12:33 | Outpatient (CLI) | payer MEDICARE, SELFPAY ==
--- NOTE | 2017-11-27 | DI.MG.S_ITS ---
BILATERAL DIGITAL SCREENING MAMMOGRAM 3D/2D WITH CAD: 11/27/2017 CLINICAL: Routine screening. Family history of breast cancer. Comparison is made to exams dated: 09/24/2016 mammogram, 09/13/2014 mammogram, and 09/29/2012 mammogram - [facility]. The tissue of both breasts is heterogeneously dense. This may lower the sensitivity of mammography. Current study was also evaluated with a Computer Aided Detection (CAD) system. No significant masses, calcifications, or other findings are seen in either breast. There has been no significant interval change. IMPRESSION: NEGATIVE There is no mammographic evidence of malignancy. A 1 year screening mammogram is recommended. This exam was interpreted at Station ID: [id number]. NOTE: For mammograms, a report in lay terms will be sent to the patient. Approximately 15% of breast malignancies will not be visualized mammographically. In the management of a palpable breast mass, a negative mammogram must not discourage biopsy of a clinically suspicious lesion. Electronically Signed By: Gabriella rose/bobbi:11/29/2017 08:25:33 letter sent: Normal Exam ACR BI-RADS Category 1: Negative [id number]
== END ==
PROVIDERS: Family Provider Physician Assistant; PCP Physician Assistant; Visit Provider Physician Assistant
DX: Z12.31 Encounter for screening mammogram for malignant neoplasm of breast (principal); Z80.3 Family history of malignant neoplasm of breast
CPT/HCPCS: 77063; 77067

== ENCOUNTER → 2018-12-09 11:14 | Outpatient (CLI) | payer MEDICARE, SELFPAY ==
--- NOTE | 2018-12-09 | DI.MG.S_ITS ---
BILATERAL DIGITAL SCREENING MAMMOGRAM 3D/2D WITH CAD: 12/09/2018 CLINICAL: Routine screening. Family history of breast cancer. Comparison is made to exams dated: 11/27/2017 mammogram, 09/24/2016 mammogram, and 09/13/2014 mammogram - [facility]. The tissue of both breasts is heterogeneously dense. This may lower the sensitivity of mammography. Current study was also evaluated with a Computer Aided Detection (CAD) system. There are benign calcifications in both breasts. No significant masses, calcifications, or other findings are seen in either breast. There has been no significant interval change. IMPRESSION: There is no mammographic evidence of malignancy. A 1 year screening mammogram is recommended. This exam was interpreted at Station ID: [id number]. NOTE: For mammograms, a report in lay terms will be sent to the patient. Approximately 15% of breast malignancies will not be visualized mammographically. In the management of a palpable breast mass, a negative mammogram must not discourage biopsy of a clinically suspicious lesion. Electronically Signed By: Gabriella rose/bobbi:12/09/2018 12:06:32 letter sent: Normal Exam ACR BI-RADS Category 2: Benign Finding(s) 3342F
== END ==
PROVIDERS: Family Provider Physician Assistant; PCP Physician Assistant; Visit Provider Physician Assistant
DX: Z12.31 Encounter for screening mammogram for malignant neoplasm of breast (principal); Z80.3 Family history of malignant neoplasm of breast
CPT/HCPCS: 77063; 77067

== ENCOUNTER 2020-08-15 14:15 | Outpatient (RCR) | payer MEDICARE, OTHER, SELFPAY ==
--- NOTE | 2020-04-29 17:10 | PT.OIE ---
Current Diagnoses Unilateral primary osteoarthritis, left knee (04/29/20) Effusion, right knee (04/29/20) Pain in right knee (04/29/20) Muscle weakness (generalized) (04/29/20) Other abnormalities of gait and mobility (04/29/20) Visit Care Team Role Provider Type Latesha Fernandes PA-C Family Provider Advanced Manager Actuarial Primary Care Provider Specialty: Internal Medicine Address: [address] [place] [address], [id number] Email: [email or web address] [address] Marin MD Attending Provider Physician Referring Provider Specialty: Orthopedic Surgery Address: [address] [place] [address], [id number] Email: [email or web address] Physical Therapy Initial Evaluation PT-OP-A Visit Information Start: 04/23/20 17:37 Freq: Status: Active Protocol: Document 04/29/20 12:47 LRN (Rec: 04/29/20 14:04 LRN [id number]) Out-Patient Physical Therapy Visit Information Visit Information Visit Type Initial Evaluation Visit Start Time 12:47 Visit Stop Time 13:35 Total Visit Minutes 58 Visit Number 1 Evaluation Information Evaluation Date 04/29/20 Precautions Precautions Arthritis, Back & Neck pain since surgery. PT-OP-B Current Condition Start: 04/23/20 17:37 Freq: Status: Active Protocol: Document 04/29/20 12:47 LRN (Rec: 04/29/20 14:04 LRN [id number]) Current Condition History of Current Condition Onset Date 04/22/20 Current Complaints Decreased R knee mobility, must lift leg and walks with FWW. Dec sleep History of Current Condition Elective Day surgery @ [facility] for L TKA. Since home has been doing a home exercise program. She has been doing them 1-2x/day. DA staying with her until 2 days ago and she is expecting another DA to come in May. Future Testing and Treatments Planned Next appt is with Dr. Nava's assistance 05/07/20 (9:45a), appt with Dr Nava 06/04/20. Developmental History Developmental History R Anterior cruciate and MCL surgery after ski fall (1976) followed by surgery to repair and was in a full leg cast for 6 weeks. Pt reports arthritis set and has had injections in the R knee since . Treatment Goals Patient/Caregiver Goals Pt goal is to walk long distance (6 blks or 2-3 miles) . Walk normal without walker. Golf, water activities. Prior Functional Status Baseline Function- ADL's Independent Baseline Function- Mobility Independent Baseline Function- Gait Walked for ex without assistive device, pain third rigger R knee after 3 blks Baseline Function- Recreation/Hobbies Walks [employer]. Baseline Function- Other Able to sleeps mostly through the night. Current Functional Impairments (Reported) Functional Limitations- ADL's Decreased gait ability, using FWW and must lift leg to walk Aches. Functional Limitations- Mobility/Gait Ambs with FWW. Walks around the house Functional Limitations- Other Difficulty sleeping, sleeps 1 hour at time. Personal Factors Other Personal Factors That May Effect Lives alone, will have help Therapy/Recovery from daughter coming in May. PT-OP-C Subjective Start: 04/23/20 17:37 Freq: Status: Active Protocol: Document 04/29/20 12:47 LRN (Rec: 04/29/20 14:04 LRN [id number]) Patient Questionnaires Lower Extremity Functional Scale LEFS Score 6 LEFS Impairment 80 to 99% Impaired (Score 1-16 ) OP-PT Pain Assessment Pain Assessment Grid Paper Pain Assessment Grid Completed Yes Location Bilateral neck pain Pain Location Details Posterior bilateral neck pain Intensity 3 Scale Used Numeric (0 - 10) L LBP Pain Location Details L low back above Iliac Crest Intensity 3 Scale Used Numeric (0 - 10) L knee Pain Location Details Around L knee joint Intensity 7 Scale Used Numeric (0 - 10) Description Aching Frequency Constant PT-OP-G Mobility & Gait Start: 04/23/20 17:37 Freq: Status: Active Protocol: Document 04/29/20 12:47 LRN (Rec: 04/29/20 14:04 LRN [id number]) OP Mobility Evaluation Bed Mobility Supine to and from Sit Independent OP Gait Assessment Gait Gait Assistance Required: Independent Able to Maintain Weight Bearing Status Yes During Gait Assistive Devices Assistive Device Standard Walker Orthotic/Prosthetic Devices or Brace: No Gait Deviations General Gait Pattern Antalgic,Decreased Stride Length,Flexed Trunk Stair Climbing Evaluation Comments Stair Climbing Comments Pt has no stairs at home. PT-OP-J Posture/Palpation/Skin Start: 04/23/20 17:37 Freq: Status: Active Protocol: Document 04/29/20 12:47 LRN (Rec: 04/29/20 14:04 LRN [id number]) Palpation Assessment Location L knee Palpation Location Around L knee joint Palpation Findings Edema,Soft Tissue Tightness, Tenderness Palpation Details Increased temperature PT-OP-K Range of Motion Start: 04/23/20 17:37 Freq: Status: Active Protocol: Document 04/29/20 12:47 LRN (Rec: 04/29/20 14:04 LRN [id number]) Knee Goniometric Range of Motion Knee Supine R knee AROM Patient Position Supine Flexion Active (degrees) 131 Flexion Passive (degrees) 131 Extension Active (degrees) 0 Extension Passive (degrees) 0 Supine L knee AROM Patient Position Supine Flexion Active (degrees) 52 Flexion Passive (degrees) 52 Extension Active (degrees) 10 Extension Passive (degrees) 10 Comments Pain at end-range. Pt wearing MISHA hose Sitting L knee AROM Patient Position Sitting Comments 12-48 Sitting R knee ROM Patient Position Sitting Comments 0-118 Ankle and Foot Goniometric Range of Motion Ankle and Foot Left Dorsiflexion with Knee Extended 15 Plantarflexion 58 Right Testing Position Supine Dorsiflexion with Knee Extended 0 Plantarflexion 62 Comments 0-62 Was 10DF-8PF PT-OP-M Strength Start: 04/23/20 17:37 Freq: Status: Active Protocol: Document 04/29/20 12:47 LRN (Rec: 04/29/20 14:04 LRN [id number]) Knee Strength Knee Manual Muscle Testing Right Flexion (S2) 5 Normal Extension (L3) 5 Normal Left Flexion (S2) 3+ Fair+ Extension (L3) 3+ Fair+ PT-OP-Q Treatments Start: 04/23/20 17:37 Freq: Status: Active Protocol: Document 04/29/20 12:47 LRN (Rec: 04/29/20 14:04 LRN [id number]) Therapeutic Exercises Supine Exercises Heel Slides Supine Exercise Name Heel Slides with assist and without Side left Equipment Used Straps Reps/Minutes 10x each Comments Poor tolerance Ankle pumps Supine Exercise Name Ankle Pumps Side left Reps/Minutes 15x QS Supine Exercise Name QS Side left Reps/Minutes 10x with holds Manual Therapy Treatment Other Other Manual Treatments Assist pt with donning L compression stocking for edema management. Self-Care/Home Management Treatment Education Patient Education Pain Management Other Education Discussed & educated pt in results of evaluation and plan of care, discussed goals. Activities Self-Care/Home Management Activities Reviewed pt's current HEP with pt to continue current program and added heel slides with belt to assist and sitting knee ext/flex. Held supine knee hangs and held strengthening exercises. PT-OP-R Modalities Start: 04/23/20 17:37 Freq: Status: Active Protocol: Document 04/29/20 12:47 LRN (Rec: 04/29/20 14:04 LRN [id number]) Hot Pack/Cold Pack Treatment Cold Pack Location L Knee, legs on bolster Patient Position Hooklying Treatment Duration (minutes) 10 Patient Tolerance Good PT-OP-T Assessment and Plan Start: 04/23/20 17:37 Freq: Status: Active Protocol: Document 04/29/20 12:47 LRN (Rec: 04/29/20 14:04 LRN [id number]) Physical Therapy Assessment Rehab Potential Rehabilitation Potential Excellent Evaluation Complexity Number of Personal Factors/Comorbidities 1-2 Number of Body Systems Impaired 4 or More Clinical Presentation at Evaluation Evolving Impairments Impairments Activity Tolerance,Edema, Functional Mobility,Gait,Pain, ROM,Soft Tissue Mobility, Strength Other Impairments Left LBP rated 3/10, Bilateral neck pain rated 3/10 Goals Five Impairment L knee pain (5-7/10) Short Term Goal (STG) Dec pain at rest to 4-5/10 STG Duration 06/03/20 Jail Goal (LTG) Decr pain at rest to 0-1/10 and with walking activity to 2 -3/10. LTG Duration 07/28/20 Four Impairment Decreased L knee AROM (10-52 deg's) Short Term Goal (STG) Increase L knee AROM 0-105 deg 's STG Duration 06/03/20 Eye Surgeon Goal (LTG) Increase L knee AROM 0-125 deg 's. LTG Duration 07/28/20 Three Impairment Pt unable to return to her prior pool exercise program, independently Short Term Goal (STG) Pt scar will be healed with good scar mobility and L knee AROM at least 5-95 deg's STG Duration 05/27/20 Jail Goal (LTG) Pt able to get into the local pool and do her prior ex program with modifications as needed. LTG Duration 06/24/20 Two Impairment Antalgic gait using a FWW for safety Short Term Goal (STG) Pt will be able to walk with a normal gait pattern without a walker. STG Duration 05/20/20 Jail Goal (LTG) Pt will be able to walk a long distance of 6 blks or 2-3 miles with mild to no difficulty. LTG Duration 07/28/20 One Impairment Lacks appropriate self care HEP Jail Goal (LTG) Pt will be independent in a self care HEP for continued L knee/hip exercises. LTG Duration 07/28/20 Assessment Summary Assessment Pt is a 74 yo female s/p L TKA on 04/22/20. She presents with decreased ambulatory mobility, decreased L knee and ankle ROM and decreased L knee strength as expected. She has swelling in the LLE and needed assist with donning a MISHA hose. The pt may be hindered in her progress since she lives alone and is having help from friends until her daughter is able to come in May to help her. The pt will benefit from skilled physical therapy for her L TKA rehabilitation towards full independence and return of function. Physical Therapy Plan Frequency and Duration Frequency of Treatment 2x/Week Plan of Care Start Date 04/29/20 Plan of Care End Date 07/28/20 Therapeutic Interventions Therapeutic Interventions Gait Training,Home Exercise Program,Joint Mobilizations, Manual Therapy,Patient/ Caregiver Education,Self-Care/ Home Management,Soft Tissue Mobilization,Taping, Therapeutic Exercises Modalities Cold Pack/Ice Massage,Hot Packs Other Therapeutic Interventions Pt self care aquatic exercise when her incision has fully healed. Next Visit Focus/Plan Next Note Type Treatment Note Next Visit Plan L TKA rehabilitation, Lymphedema massage to LLE, use of cryotherapy and positioning to reduce edema. K-tape when bandage has been removed. Gait training and curb training & HEP progression when appropriate.
--- NOTE | 2020-04-29 17:10 | PT.OPPOC ---
Physical, Occupational & Speech Therapy At [facility] Current Diagnoses Unilateral primary osteoarthritis, left knee (04/29/20) Effusion, right knee (04/29/20) Pain in right knee (04/29/20) Muscle weakness (generalized) (04/29/20) Other abnormalities of gait and mobility (04/29/20) Visit Care Team Role Provider Type Latesha Fernandes PA-C Family Provider Advanced As[employer] Primary Care Provider Specialty: Internal Medicine Address: [address] [place] [address], [id number] Email: [email or web address] [facility] Onlinegar[facility] [address] Marin MD Attending Provider Physician Referring Provider Specialty: Orthopedic Surgery Address: [address] [place] [address], [address] Email: [email or web address] Plan Of Care PT-OP-T Assessment and Plan Start: 04/23/20 17:37 Freq: Status: Active Protocol: Document 04/29/20 12:47 LRN (Rec: 04/29/20 14:04 LRN [id number]) Physical Therapy Assessment Rehab Potential Rehabilitation Potential Excellent Evaluation Complexity Number of Personal Factors/Comorbidities 1-2 Number of Body Systems Impaired 4 or More Clinical Presentation at Evaluation Evolving Impairments Impairments Activity Tolerance,Edema, Functional Mobility,Gait,Pain, ROM,Soft Tissue Mobility, Strength Other Impairments Left LBP rated 3/10, Bilateral neck pain rated 3/10 Goals Five Impairment L knee pain (5-7/10) Short Term Goal (STG) Dec pain at rest to 4-5/10 STG Duration 06/03/20 Shipping Associate Goal (LTG) Decr pain at rest to 0-1/10 and with walking activity to 2 -3/10. LTG Duration 07/28/20 Four Impairment Decreased L knee AROM (10-52 deg's) Short Term Goal (STG) Increase L knee AROM 0-105 deg 's STG Duration 06/03/20 Residential Goal (LTG) Increase L knee AROM 0-125 deg 's. LTG Duration 07/28/20 Three Impairment Pt unable to return to her prior pool exercise program, independently Short Term Goal (STG) Pt scar will be healed with good scar mobility and L knee AROM at least 5-95 deg's STG Duration 05/27/20 Residential Goal (LTG) Pt able to get into the local pool and do her prior ex program with modifications as needed. LTG Duration 06/24/20 Two Impairment Antalgic gait using a FWW for safety Short Term Goal (STG) Pt will be able to walk with a normal gait pattern without a walker. STG Duration 05/20/20 Residential Goal (LTG) Pt will be able to walk a long distance of 6 blks or 2-3 miles with mild to no difficulty. LTG Duration 07/28/20 One Impairment Lacks appropriate self care HEP Shipping Associate Goal (LTG) Pt will be independent in a self care HEP for continued L knee/hip exercises. LTG Duration 07/28/20 Assessment Summary Assessment Pt is a 74 yo female s/p L TKA on 04/22/20. She presents with decreased ambulatory mobility, decreased L knee and ankle ROM and decreased L knee strength as expected. She has swelling in the LLE and needed assist with donning a MISHA hose. The pt may be hindered in her progress since she lives alone and is having help from friends until her daughter is able to come in May to help her. The pt will benefit from skilled physical therapy for her L TKA rehabilitation towards full independence and return of function. Physical Therapy Plan Frequency and Duration Frequency of Treatment 2x/Week Plan of Care Start Date 04/29/20 Plan of Care End Date 07/28/20 Therapeutic Interventions Therapeutic Interventions Gait Training,Home Exercise Program,Joint Mobilizations, Manual Therapy,Patient/ Caregiver Education,Self-Care/ Home Management,Soft Tissue Mobilization,Taping, Therapeutic Exercises Modalities Cold Pack/Ice Massage,Hot Packs Other Therapeutic Interventions Pt self care aquatic exercise when her incision has fully healed. Next Visit Focus/Plan Next Note Type Treatment Note Next Visit Plan L TKA rehabilitation, Lymphedema massage to LLE, use of cryotherapy and positioning to reduce edema. K-tape when bandage has been removed. Gait training and curb training & HEP progression when appropriate. Plan of Care Dates Plan of Care Start Date 04/29/20 Plan of Care End Date 07/28/20 Electronically Signed by: Gabriella Hirsch, PT 04/30/20 1650 Please Sign and Return: I have reviewed this Plan of Care and certify that the skilled therapy services above are required to meet the patient?s needs. Physician Signature Date Printed Name and Credentials Clinical Instructor Signature Printed Name and Credentials
--- NOTE | 2020-05-02 16:01 | PT.OTN ---
Current Diagnoses Unilateral primary osteoarthritis, left knee (05/02/20) Effusion, right knee (05/02/20) Pain in right knee (05/02/20) Muscle weakness (generalized) (05/02/20) Other abnormalities of gait and mobility (05/02/20) Physical Therapy Treatment Note PT-OP-A Visit Information Start: 04/23/20 17:37 Freq: Status: Active Protocol: Document 05/02/20 15:07 LRN (Rec: 05/02/20 16:00 LRN [id number]) Out-Patient Physical Therapy Visit Information Visit Information Visit Type Treatment Note Visit Start Time 15:07 Visit Stop Time 16:00 Total Visit Minutes 53 Visit Number 2 Evaluation Information Evaluation Date 04/29/20 Precautions Precautions Arthritis, Back & Neck pain since surgery. PT-OP-B Current Condition Start: 04/23/20 17:37 Freq: Status: Active Protocol: Document 04/29/20 12:47 LRN (Rec: 04/29/20 14:04 LRN [id number]) Current Condition History of Current Condition Onset Date 04/22/20 Current Complaints Decreased R knee mobility, must lift leg and walks with FWW. Dec sleep History of Current Condition Elective Day surgery @ [facility] for L TKA. Since home has been doing a home exercise program. She has been doing them 1-2x/day. DA staying with her until 2 days ago and she is expecting another DA to come in May. Future Testing and Treatments Planned Next appt is with Dr. Nava's assistance 05/07/20 (9:45a), appt with Dr Nava 06/04/20. Developmental History Developmental History R Anterior cruciate and MCL surgery after ski fall (1976) followed by surgery to repair and was in a full leg cast for 6 weeks. Pt reports arthritis set and has had injections in the R knee since . Treatment Goals Patient/Caregiver Goals Pt goal is to walk long distance (6 blks or 2-3 miles) . Walk normal without walker. Golf, water activities. 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 Baseline Function- Other Able to sleeps mostly through the night. Current Functional Impairments (Reported) Functional Limitations- ADL's Decreased gait ability, using FWW and must lift leg to walk Aches. Functional Limitations- Mobility/Gait Ambs with FWW. Walks around the house Functional Limitations- Other Difficulty sleeping, sleeps 1 hour at time. Personal Factors Other Personal Factors That May Effect Lives alone, will have help Therapy/Recovery from daughter coming in May. PT-OP-C Subjective Start: 04/23/20 17:37 Freq: Status: Active Protocol: Document 05/02/20 15:07 LRN (Rec: 05/02/20 16:00 LRN [id number]) OP-PT Subjective Patient Comments Patient Comments States she feels easier to bend and straighten the L knee as noticed when she sits on the edge of her bed at home. Forgot medications before therapy. PT-OP-G Mobility & Gait Start: 04/23/20 17:37 Freq: Status: Active Protocol: Document 04/29/20 12:47 LRN (Rec: 04/29/20 14:04 LRN [id number]) OP Mobility Evaluation Bed Mobility Supine to and from Sit Independent OP Gait Assessment Gait Gait Assistance Required: Independent Able to Maintain Weight Bearing Status Yes During Gait Assistive Devices Assistive Device Standard Walker Orthotic/Prosthetic Devices or Brace: No Gait Deviations General Gait Pattern Antalgic,Decreased Stride Length,Flexed Trunk Stair Climbing Evaluation Comments Stair Climbing Comments Pt has no stairs at home. PT-OP-J Posture/Palpation/Skin Start: 04/23/20 17:37 Freq: Status: Active Protocol: Document 04/29/20 12:47 LRN (Rec: 04/29/20 14:04 LRN [id number]) Palpation Assessment Location L knee Palpation Location Around L knee joint Palpation Findings Edema,Soft Tissue Tightness, Tenderness Palpation Details Increased temperature PT-OP-K Range of Motion Start: 04/23/20 17:37 Freq: Status: Active Protocol: Document 05/02/20 15:07 LRN (Rec: 05/02/20 16:00 LRN [id number]) Knee Goniometric Range of Motion Knee Supine L knee AROM Knee ROM WFL No Patient Position Supine Flexion Passive (degrees) 48 Extension Passive (degrees) 5 Comments Active assisted knee flex immediately after flexion ex's was 56 deg's Sitting L knee AROM Knee ROM WFL No Patient Position Sitting Flexion Active (degrees) 5 Extension Active (degrees) 45 PT-OP-M Strength Start: 04/23/20 17:37 Freq: Status: Active Protocol: Document 04/29/20 12:47 LRN (Rec: 04/29/20 14:04 LRN [id number]) Knee Strength Knee Manual Muscle Testing Right Flexion (S2) 5 Normal Extension (L3) 5 Normal Left Flexion (S2) 3+ Fair+ Extension (L3) 3+ Fair+ PT-OP-Q Treatments Start: 04/23/20 17:37 Freq: Status: Active Protocol: Document 05/02/20 15:07 LRN (Rec: 05/02/20 16:00 LRN [id number]) Therapeutic Exercises Supine Exercises SAQ Supine Exercise Name SAQ Side left Comments Pt moves very slow, AROM: 7 deg's Heels sets Supine Exercise Name Aaliyah heel sets Side left Equipment Used TBall Reps/Minutes 8' Heel Slides Supine Exercise Name Heel Slides with assist and without Side left Equipment Used Straps, TBall Reps/Minutes 8' Comments Poor tolerance, Pt moves very slow QS Supine Exercise Name QS Side left Equipment Used pillow roll Reps/Minutes 6' Comments Resting between contractions Sitting Exercises Heels slides (CKC) Sitting Exercise Name Heels slides (CKC) Side left Comments Pt moves very slow LAQ Sitting Exercise Name LAQ Side left Comments Pt moves very slow Manual Therapy Treatment Soft Tissue Mobilization L anteromedial knee Body Location L knee w/focus on anteronmedial area Mobilization Type Other Intensity/Depth Superficial Body Position Supine Comments Performed during knee flexion ex. PT-OP-R Modalities Start: 04/23/20 17:37 Freq: Status: Active Protocol: Document 05/02/20 15:07 LRN (Rec: 05/02/20 16:00 LRN [id number]) Hot Pack/Cold Pack Treatment Cold Pack Location L Knee, legs on bolster Patient Position Hooklying Treatment Duration (minutes) 10 Patient Tolerance Good Comments 10' time also during sitting L knee flexion. PT-OP-T Assessment and Plan Start: 04/23/20 17:37 Freq: Status: Active Protocol: Document 05/02/20 15:07 LRN (Rec: 05/02/20 16:00 LRN [id number]) Physical Therapy Assessment Goals Five Impairment L knee pain (5-7/10) Short Term Goal (STG) Dec pain at rest to 4-5/10 STG Duration 06/03/20 Bone Density Technician Goal (LTG) Decr pain at rest to 0-1/10 and with walking activity to 2 -3/10. LTG Duration 07/28/20 Four Impairment Decreased L knee AROM (10-52 deg's) Short Term Goal (STG) Increase L knee AROM 0-105 deg 's STG Duration 06/03/20 Bone Density Technician Goal (LTG) Increase L knee AROM 0-125 deg 's. LTG Duration 07/28/20 Three Impairment Pt unable to return to her prior pool exercise program, independently Short Term Goal (STG) Pt scar will be healed with good scar mobility and L knee AROM at least 5-95 deg's STG Duration 05/27/20 Bone Density Technician Goal (LTG) Pt able to get into the local pool and do her prior ex program with modifications as needed. LTG Duration 06/24/20 Two Impairment Antalgic gait using a FWW for safety Short Term Goal (STG) Pt will be able to walk with a normal gait pattern without a walker. STG Duration 05/20/20 Skilled Nursing Goal (LTG) Pt will be able to walk a long distance of 6 blks or 2-3 miles with mild to no difficulty. LTG Duration 07/28/20 One Impairment Lacks appropriate self care HEP Skilled Nursing Goal (LTG) Pt will be independent in a self care HEP for continued L knee/hip exercises. LTG Duration 07/28/20 Progress Towards Goals Progress Comments Active assisted L knee flexion after flex ex's ended 7-56 deg's. Assessment Summary Assessment Pt is a 74 yo female s/p L TKA on 04/22/20. Pt is having poor pain control and is not tolerating exercise well. SHe forgot her pain med before therapy today and will pre- medicate next session. Extension improved from 12 deg 's to 5 deg's, ending after ex 7 deg's. Ending AROM: 7-56 deg's. Physical Therapy Plan Frequency and Duration Frequency of Treatment 2x/Week Plan of Care Start Date 04/29/20 Plan of Care End Date 07/28/20 Next Visit Focus/Plan Next Note Type Treatment Note Next Visit Plan L TKA rehabilitation, Lymphedema massage to LLE, use of cryotherapy and positioning to reduce edema. K-tape when bandage has been removed. Gait training and curb training & HEP progression when appropriate.
--- NOTE | 2020-05-06 16:16 | PT.OTN ---
Current Diagnoses Unilateral primary osteoarthritis, left knee (05/06/20) Effusion, right knee (05/06/20) Pain in right knee (05/06/20) Muscle weakness (generalized) (05/06/20) Other abnormalities of gait and mobility (05/06/20) Physical Therapy Treatment Note PT-OP-A Visit Information Start: 04/23/20 17:37 Freq: Status: Active Protocol: Document 05/06/20 15:14 LRN (Rec: 05/06/20 16:15 LRN [id number]) Out-Patient Physical Therapy Visit Information Visit Information Visit Type Treatment Note Visit Start Time 15:14 Visit Stop Time 16:05 Total Visit Minutes 51 Visit Number 3 Evaluation Information Evaluation Date 04/29/20 Precautions Precautions Arthritis, Back & Neck pain since surgery. PT-OP-B Current Condition Start: 04/23/20 17:37 Freq: Status: Active Protocol: Document 04/29/20 12:47 LRN (Rec: 04/29/20 14:04 LRN [id number]) Current Condition History of Current Condition Onset Date 04/22/20 Current Complaints Decreased R knee mobility, must lift leg and walks with FWW. Dec sleep History of Current Condition Elective Day surgery @ [facility] for L TKA. Since home has been doing a home exercise program. She has been doing them 1-2x/day. DA staying with her until 2 days ago and she is expecting another DA to come in May. Future Testing and Treatments Planned Next appt is with Dr. Nava's assistance 05/07/20 (9:45a), appt with Dr Nava 06/04/20. Developmental History Developmental History R Anterior cruciate and MCL surgery after ski fall (1976) followed by surgery to repair and was in a full leg cast for 6 weeks. Pt reports arthritis set and has had injections in the R knee since . Treatment Goals Patient/Caregiver Goals Pt goal is to walk long distance (6 blks or 2-3 miles) . Walk normal without walker. Golf, water activities. 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 Baseline Function- Other Able to sleeps mostly through the night. Current Functional Impairments (Reported) Functional Limitations- ADL's Decreased gait ability, using FWW and must lift leg to walk Aches. Functional Limitations- Mobility/Gait Ambs with FWW. Walks around the house Functional Limitations- Other Difficulty sleeping, sleeps 1 hour at time. Personal Factors Other Personal Factors That May Effect Lives alone, will have help Therapy/Recovery from daughter coming in May. PT-OP-C Subjective Start: 04/23/20 17:37 Freq: Status: Active Protocol: Document 05/06/20 15:14 LRN (Rec: 05/06/20 16:15 LRN [id number]) OP-PT Subjective Patient Comments Patient Comments States she has been doing her exercises. States she had to get a vaccine shot yesterday so she couldn't elevate it much. PT-OP-G Mobility & Gait Start: 04/23/20 17:37 Freq: Status: Active Protocol: Document 04/29/20 12:47 LRN (Rec: 04/29/20 14:04 LRN [id number]) OP Mobility Evaluation Bed Mobility Supine to and from Sit Independent OP Gait Assessment Gait Gait Assistance Required: Independent Able to Maintain Weight Bearing Status Yes During Gait Assistive Devices Assistive Device Standard Walker Orthotic/Prosthetic Devices or Brace: No Gait Deviations General Gait Pattern Antalgic,Decreased Stride Length,Flexed Trunk Stair Climbing Evaluation Comments Stair Climbing Comments Pt has no stairs at home. PT-OP-J Posture/Palpation/Skin Start: 04/23/20 17:37 Freq: Status: Active Protocol: Document 04/29/20 12:47 LRN (Rec: 04/29/20 14:04 LRN [id number]) Palpation Assessment Location L knee Palpation Location Around L knee joint Palpation Findings Edema,Soft Tissue Tightness, Tenderness Palpation Details Increased temperature PT-OP-K Range of Motion Start: 04/23/20 17:37 Freq: Status: Active Protocol: Document 05/06/20 15:14 LRN (Rec: 05/06/20 16:15 LRN [id number]) Knee Goniometric Range of Motion Knee Supine R knee AROM Patient Position Supine Flexion Active (degrees) 131 Flexion Passive (degrees) 131 Extension Active (degrees) 0 Extension Passive (degrees) 0 Supine L knee AROM Knee ROM WFL No Patient Position Supine Flexion Active (degrees) 52 Extension Active (degrees) 12 Comments AA knee flex supine: 55 deg's AA knee flex w/leg elevated on T-Ball: 60 deg's. Sitting L knee AROM Knee ROM WFL No Patient Position Sitting Flexion Active (degrees) 55 Extension Active (degrees) 12 Comments Passive knee flex on Biodex is 59 deg's Passive knee flex after therapy is 64 deg's. Active knee ext after therapy is 12 deg's PT-OP-M Strength Start: 04/23/20 17:37 Freq: Status: Active Protocol: Document 04/29/20 12:47 LRN (Rec: 04/29/20 14:04 LRN [id number]) Knee Strength Knee Manual Muscle Testing Right Flexion (S2) 5 Normal Extension (L3) 5 Normal Left Flexion (S2) 3+ Fair+ Extension (L3) 3+ Fair+ PT-OP-Q Treatments Start: 04/23/20 17:37 Freq: Status: Active Protocol: Document 05/06/20 15:14 LRN (Rec: 05/06/20 16:15 LRN [id number]) Cardio Equipment Recumbent Elliptical (Biodex) Duration (Minutes) 6 Resistance 1 Seat Position 8 Other Mid range movement for R knee tolerance Therapeutic Exercises Supine Exercises SLR Supine Exercise Name SLR Side left Reps/Minutes 15x Heels sets Supine Exercise Name Aaliyah heel sets Side left Equipment Used TBall Reps/Minutes 8' Heel Slides Supine Exercise Name Heel Slides with assist and without Side left Equipment Used Straps, TBall Reps/Minutes 8' Comments Poor tolerance, Pt moves very slow Ankle pumps Supine Exercise Name Ankle Pumps Side left Equipment Used Red TBall Reps/Minutes 30x QS Supine Exercise Name QS Side left Equipment Used Red TBall Reps/Minutes 6' Comments Resting between contractions Sitting Exercises Passive knee flex Sitting Exercise Name Fwd scooting in sitting Side right Comments R knee passive flex is 64 deg' s Heels slides (CKC) Sitting Exercise Name Heels slides (CKC) Side left Comments Pt moves very slow LAQ Sitting Exercise Name LAQ (focus on flex) Side left Comments Pt moves very slow Manual Therapy Treatment Soft Tissue Mobilization Lymphatic drainage Body Location Lymph massage with L leg in elevation Mobilization Type Manual Lymphatic Drainage Intensity/Depth Superficial Body Position Supine L anteromedial knee Body Location L knee w/focus on anteronmedial area Mobilization Type Other Intensity/Depth Superficial Body Position Supine Comments Performed during knee flexion ex. PT-OP-R Modalities Start: 04/23/20 17:37 Freq: Status: Active Protocol: Document 05/06/20 15:14 LRN (Rec: 05/06/20 16:15 LRN [id number]) Hot Pack/Cold Pack Treatment Cold Pack Location L Knee, legs on bolster Patient Position Hooklying Treatment Duration (minutes) 10 Patient Tolerance Good Comments Ice pack under knee. PT-OP-T Assessment and Plan Start: 04/23/20 17:37 Freq: Status: Active Protocol: Document 05/06/20 15:14 LRN (Rec: 05/06/20 16:15 LRN [id number]) Physical Therapy Assessment Goals Five Impairment L knee pain (5-7/10) Short Term Goal (STG) Dec pain at rest to 4-5/10 STG Duration 06/03/20 Payroll And Benefits Coordinator Goal (LTG) Decr pain at rest to 0-1/10 and with walking activity to 2 -3/10. LTG Duration 07/28/20 Four Impairment Decreased L knee AROM (10-52 deg's) Short Term Goal (STG) Increase L knee AROM 0-105 deg 's. (05/06/20: L knee AROM sitting is 12-55 to start, ending therapy is 15-64 deg's; supine is 12-55 deg's) STG Duration 06/03/20 Payroll And Benefits Coordinator Goal (LTG) Increase L knee AROM 0-125 deg 's. LTG Duration 07/28/20 Three Impairment Pt unable to return to her prior pool exercise program, independently Short Term Goal (STG) Pt scar will be healed with good scar mobility and L knee AROM at least 5-95 deg's STG Duration 05/27/20 Custodial Goal (LTG) Pt able to get into the local pool and do her prior ex program with modifications as needed. LTG Duration 06/24/20 Two Impairment Antalgic gait using a FWW for safety Short Term Goal (STG) Pt will be able to walk with a normal gait pattern without a walker. STG Duration 05/20/20 Custodial Goal (LTG) Pt will be able to walk a long distance of 6 blks or 2-3 miles with mild to no difficulty. LTG Duration 07/28/20 One Impairment Lacks appropriate self care HEP Payroll And Benefits Coordinator Goal (LTG) Pt will be independent in a self care HEP for continued L knee/hip exercises. LTG Duration 07/28/20 Progress Towards Goals Progress Comments Active L knee flex in sitting improved from 55 deg's to start to 64 deg's at treatment end. Assessment Summary Assessment Pt is a 74 yo female s/p L TKA on 04/22/20. Pt ambs in with slow controlled and proper gait mechanics. Her L knee AROM improved from last session to initial eval measurements to start, but improved in knee flexion at end of therapy due to focus of therapy being on improving flexion. Pt appears to be doing more exercises at home. Physical Therapy Plan Frequency and Duration Frequency of Treatment 2x/Week Plan of Care Start Date 04/29/20 Plan of Care End Date 07/28/20 Next Visit Focus/Plan Next Note Type Treatment Note Next Visit Plan L TKA rehabilitation, increase self ROM ex on Biodex, cont lymphedema massage to LLE, use of cryotherapy and positioning to reduce edema. K-tape when bandage has been removed. Curb training & HEP progression when appropriate.
--- NOTE | 2020-05-10 16:38 | PT.OTN ---
Current Diagnoses Unilateral primary osteoarthritis, left knee (05/10/20) Effusion, right knee (05/10/20) Pain in right knee (05/10/20) Muscle weakness (generalized) (05/10/20) Other abnormalities of gait and mobility (05/10/20) Physical Therapy Treatment Note PT-OP-A Visit Information Start: 04/23/20 17:37 Freq: Status: Active Protocol: Document 05/10/20 13:38 LRN (Rec: 05/10/20 14:19 LRN [id number]) Out-Patient Physical Therapy Visit Information Visit Information Visit Type Treatment Note Visit Start Time 13:38 Visit Stop Time 14:28 Total Visit Minutes 50 Visit Number 4 Evaluation Information Evaluation Date 04/29/20 Precautions Precautions Arthritis, Back & Neck pain since surgery. PT-OP-B Current Condition Start: 04/23/20 17:37 Freq: Status: Active Protocol: Document 04/29/20 12:47 LRN (Rec: 04/29/20 14:04 LRN [id number]) Current Condition History of Current Condition Onset Date 04/22/20 Current Complaints Decreased R knee mobility, must lift leg and walks with FWW. Dec sleep History of Current Condition Elective Day surgery @ [facility] for L TKA. Since home has been doing a home exercise program. She has been doing them 1-2x/day. DA staying with her until 2 days ago and she is expecting another DA to come in May. Future Testing and Treatments Planned Next appt is with Dr. Nava's assistance 05/07/20 (9:45a), appt with Dr Nava 06/04/20. Developmental History Developmental History R Anterior cruciate and MCL surgery after ski fall (1976) followed by surgery to repair and was in a full leg cast for 6 weeks. Pt reports arthritis set and has had injections in the R knee since . Treatment Goals Patient/Caregiver Goals Pt goal is to walk long distance (6 blks or 2-3 miles) . Walk normal without walker. Golf, water activities. 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 Baseline Function- Other Able to sleeps mostly through the night. Current Functional Impairments (Reported) Functional Limitations- ADL's Decreased gait ability, using FWW and must lift leg to walk Aches. Functional Limitations- Mobility/Gait Ambs with FWW. Walks around the house Functional Limitations- Other Difficulty sleeping, sleeps 1 hour at time. Personal Factors Other Personal Factors That May Effect Lives alone, will have help Therapy/Recovery from daughter coming in May. PT-OP-C Subjective Start: 04/23/20 17:37 Freq: Status: Active Protocol: Document 05/10/20 13:38 LRN (Rec: 05/10/20 14:19 LRN [id number]) OP-PT Subjective Patient Comments Patient Comments States she saw physician home care assistant and was suggested manipulation that scared pt; therefore she is determined to improve flex to 115 deg's by end of month. States she was measured at 72 deg's flex. Taking less Tylenol. PT-OP-G Mobility & Gait Start: 04/23/20 17:37 Freq: Status: Active Protocol: Document 04/29/20 12:47 LRN (Rec: 04/29/20 14:04 LRN [id number]) OP Mobility Evaluation Bed Mobility Supine to and from Sit Independent OP Gait Assessment Gait Gait Assistance Required: Independent Able to Maintain Weight Bearing Status Yes During Gait Assistive Devices Assistive Device Standard Walker Orthotic/Prosthetic Devices or Brace: No Gait Deviations General Gait Pattern Antalgic,Decreased Stride Length,Flexed Trunk Stair Climbing Evaluation Comments Stair Climbing Comments Pt has no stairs at home. PT-OP-J Posture/Palpation/Skin Start: 04/23/20 17:37 Freq: Status: Active Protocol: Document 04/29/20 12:47 LRN (Rec: 04/29/20 14:04 LRN [id number]) Palpation Assessment Location L knee Palpation Location Around L knee joint Palpation Findings Edema,Soft Tissue Tightness, Tenderness Palpation Details Increased temperature PT-OP-K Range of Motion Start: 04/23/20 17:37 Freq: Status: Active Protocol: Document 05/10/20 13:38 LRN (Rec: 05/10/20 14:19 LRN [id number]) Knee Goniometric Range of Motion Knee Supine L knee AROM Knee ROM WFL No Patient Position Supine Flexion Active (degrees) 70 Comments AA knee flex supine: 70 deg's AA knee flex w/leg elevated on T-Ball: 70 deg's. Sitting L knee AROM Knee ROM WFL No Patient Position Sitting Flexion Active (degrees) 68 PT-OP-M Strength Start: 04/23/20 17:37 Freq: Status: Active Protocol: Document 04/29/20 12:47 LRN (Rec: 04/29/20 14:04 LRN [id number]) Knee Strength Knee Manual Muscle Testing Right Flexion (S2) 5 Normal Extension (L3) 5 Normal Left Flexion (S2) 3+ Fair+ Extension (L3) 3+ Fair+ PT-OP-Q Treatments Start: 04/23/20 17:37 Freq: Status: Active Protocol: Document 05/10/20 13:38 LRN (Rec: 05/10/20 14:19 LRN [id number]) Cardio Equipment Recumbent Elliptical (Reachable) Duration (Minutes) 8 Resistance 1 Seat Position 8 Other Mid range movement for R knee tolerance Therapeutic Exercises Supine Exercises SLR Supine Exercise Name SLR Side left Reps/Minutes 15x Heels sets Supine Exercise Name Aaliyah heel sets Side left Equipment Used TBall Reps/Minutes 4' Heel Slides Supine Exercise Name Heel Slides with assist and without Side left Equipment Used Straps, TBall Reps/Minutes 12' Comments Poor tolerance, Pt moves very slow Manual Therapy Treatment Soft Tissue Mobilization Lymphatic drainage Body Location Lymph massage with L leg in elevation Mobilization Type Manual Lymphatic Drainage Intensity/Depth Superficial Body Position Supine Comments Training with pt following I/S 's and doing self massage. Self-Care/Home Management Treatment Education Patient Education Home Exercise Program Other Education Educated pt in lymph massage for edema management. Activities Self-Care/Home Management Activities Issued and reviewed handouts for lymph do's/don'ts and discussed precautions appropriate for post surgical vs full LE lymphedema. I/S pt in lymph massage. PT-OP-R Modalities Start: 04/23/20 17:37 Freq: Status: Active Protocol: Document 05/06/20 15:14 LRN (Rec: 05/06/20 16:15 LRN [id number]) Hot Pack/Cold Pack Treatment Cold Pack Location L Knee, legs on bolster Patient Position Hooklying Treatment Duration (minutes) 10 Patient Tolerance Good Comments Ice pack under knee. PT-OP-T Assessment and Plan Start: 04/23/20 17:37 Freq: Status: Active Protocol: Document 05/10/20 13:38 LRN (Rec: 05/10/20 14:19 LRN [id number]) Physical Therapy Assessment Goals Five Impairment L knee pain (5-7/10) Short Term Goal (STG) Dec pain at rest to 4-5/10 STG Duration 06/03/20 Client Service Administrator Goal (LTG) Decr pain at rest to 0-1/10 and with walking activity to 2 -3/10. LTG Duration 07/28/20 Four Impairment Decreased L knee AROM (10-52 deg's) Short Term Goal (STG) Increase L knee AROM 0-105 deg 's. (05/06/20: L knee AROM sitting is 12-55 to start, ending therapy is 15-64 deg's; supine is 12-55 deg's) STG Duration 06/03/20 Client Service Administrator Goal (LTG) Increase L knee AROM 0-125 deg 's. LTG Duration 07/28/20 Three Impairment Pt unable to return to her prior pool exercise program, independently Short Term Goal (STG) Pt scar will be healed with good scar mobility and L knee AROM at least 5-95 deg's STG Duration 05/27/20 Client Service Administrator Goal (LTG) Pt able to get into the local pool and do her prior ex program with modifications as needed. LTG Duration 06/24/20 Two Impairment Antalgic gait using a FWW for safety Short Term Goal (STG) Pt will be able to walk with a normal gait pattern without a walker. STG Duration 05/20/20 Client Service Administrator Goal (LTG) Pt will be able to walk a long distance of 6 blks or 2-3 miles with mild to no difficulty. LTG Duration 07/28/20 One Impairment Lacks appropriate self care HEP Client Service Administrator Goal (LTG) Pt will be independent in a self care HEP for continued L knee/hip exercises. HEP TO DATE: INSTRUCTIONS GIVEN: *Do's/Don 'ts of lymph massage. *LE self lymph massage. LTG Duration 07/28/20 (05/10/20: Progressing) Progress Towards Goals Progress Comments Improved L knee active flex to 70 deg's after treatment (was 55 deg's last session). Assessment Summary Assessment Pt L knee AROM improved 6 deg' s. Pt is having a lot of pain at end-range stretching into flexion, probably due to edema . Pt is highly motivated to improve her ROM. She is not a good candidate for use of K- tape due to allergic reactions to Latex; therefore will defer use. Physical Therapy Plan Frequency and Duration Frequency of Treatment 2x/Week Plan of Care Start Date 04/29/20 Plan of Care End Date 07/28/20 Next Visit Focus/Plan Next Note Type Treatment Note Next Visit Plan L TKA rehabilitation. Review self lymph massage and add lymph exercise program. Increase self ROM ex on Biodex , lymphedema massage to LLE if pt wants to remove her compression hose. Cryotherap/ Cryocuff and positioning to reduce edema. Curb training & HEP progression when appropriate.
--- NOTE | 2020-05-14 17:20 | PT.OTN ---
Current Diagnoses Unilateral primary osteoarthritis, left knee (05/14/20) Effusion, right knee (05/14/20) Pain in right knee (05/14/20) Muscle weakness (generalized) (05/14/20) Other abnormalities of gait and mobility (05/14/20) Physical Therapy Treatment Note PT-OP-A Visit Information Start: 04/23/20 17:37 Freq: Status: Active Protocol: Document 05/14/20 10:29 LRN (Rec: 05/14/20 11:19 LRN [id number]) Out-Patient Physical Therapy Visit Information Visit Information Visit Type Treatment Note Visit Start Time 10:29 Visit Stop Time 11:11 Total Visit Minutes 42 Visit Number 5 Evaluation Information Evaluation Date 04/29/20 Precautions Precautions Arthritis, Back & Neck pain since surgery. PT-OP-B Current Condition Start: 04/23/20 17:37 Freq: Status: Active Protocol: Document 04/29/20 12:47 LRN (Rec: 04/29/20 14:04 LRN [id number]) Current Condition History of Current Condition Onset Date 04/22/20 Current Complaints Decreased R knee mobility, must lift leg and walks with FWW. Dec sleep History of Current Condition Elective Day surgery @ [facility] for L TKA. Since home has been doing a home exercise program. She has been doing them 1-2x/day. DA staying with her until 2 days ago and she is expecting another DA to come in May. Future Testing and Treatments Planned Next appt is with Dr. Nava's assistance 05/07/20 (9:45a), appt with Dr Nava 06/04/20. Developmental History Developmental History R Anterior cruciate and MCL surgery after ski fall (1976) followed by surgery to repair and was in a full leg cast for 6 weeks. Pt reports arthritis set and has had injections in the R knee since . Treatment Goals Patient/Caregiver Goals Pt goal is to walk long distance (6 blks or 2-3 miles) . Walk normal without walker. Golf, water activities. 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 Baseline Function- Other Able to sleeps mostly through the night. Current Functional Impairments (Reported) Functional Limitations- ADL's Decreased gait ability, using FWW and must lift leg to walk Aches. Functional Limitations- Mobility/Gait Ambs with FWW. Walks around the house Functional Limitations- Other Difficulty sleeping, sleeps 1 hour at time. Personal Factors Other Personal Factors That May Effect Lives alone, will have help Therapy/Recovery from daughter coming in May. PT-OP-C Subjective Start: 04/23/20 17:37 Freq: Status: Active Protocol: Document 05/14/20 10:29 LRN (Rec: 05/14/20 11:19 LRN [id number]) OP-PT Subjective Patient Comments Patient Comments States she has been doing her exercises. PT-OP-G Mobility & Gait Start: 04/23/20 17:37 Freq: Status: Active Protocol: Document 04/29/20 12:47 LRN (Rec: 04/29/20 14:04 LRN [id number]) OP Mobility Evaluation Bed Mobility Supine to and from Sit Independent OP Gait Assessment Gait Gait Assistance Required: Independent Able to Maintain Weight Bearing Status Yes During Gait Assistive Devices Assistive Device Standard Walker Orthotic/Prosthetic Devices or Brace: No Gait Deviations General Gait Pattern Antalgic,Decreased Stride Length,Flexed Trunk Stair Climbing Evaluation Comments Stair Climbing Comments Pt has no stairs at home. PT-OP-J Posture/Palpation/Skin Start: 04/23/20 17:37 Freq: Status: Active Protocol: Document 04/29/20 12:47 LRN (Rec: 04/29/20 14:04 LRN [id number]) Palpation Assessment Location L knee Palpation Location Around L knee joint Palpation Findings Edema,Soft Tissue Tightness, Tenderness Palpation Details Increased temperature PT-OP-K Range of Motion Start: 04/23/20 17:37 Freq: Status: Active Protocol: Document 05/14/20 10:29 LRN (Rec: 05/14/20 11:19 LRN [id number]) Knee Goniometric Range of Motion Knee Sitting L knee AROM Knee ROM WFL No Patient Position Sitting Flexion Active (degrees) 68 PT-OP-M Strength Start: 04/23/20 17:37 Freq: Status: Active Protocol: Document 04/29/20 12:47 LRN (Rec: 04/29/20 14:04 LRN [id number]) Knee Strength Knee Manual Muscle Testing Right Flexion (S2) 5 Normal Extension (L3) 5 Normal Left Flexion (S2) 3+ Fair+ Extension (L3) 3+ Fair+ PT-OP-Q Treatments Start: 04/23/20 17:37 Freq: Status: Active Protocol: Document 05/14/20 10:29 LRN (Rec: 05/14/20 11:19 LRN [id number]) Cardio Equipment Recumbent Elliptical (Biodex) Duration (Minutes) 10 Resistance 1 Seat Position 8 Other Mid range movement for R knee tolerance Therapeutic Exercises Sitting Exercises Passive knee flex Sitting Exercise Name Fwd scooting in sitting Side right Reps/Minutes 25' Comments R knee passive flex is 64 deg' s Self-Care/Home Management Treatment Education Patient Education Home Exercise Program Activities Self-Care/Home Management Activities Issued & reviewed HEP: * Bilateral BKFO, *Sitting knee ext, *Supine Ankle pumps, and *written I/S for knee flex stretch f/b 10 active stretches. PT-OP-R Modalities Start: 04/23/20 17:37 Freq: Status: Active Protocol: Document 05/06/20 15:14 LRN (Rec: 05/06/20 16:15 LRN [id number]) Hot Pack/Cold Pack Treatment Cold Pack Location L Knee, legs on bolster Patient Position Hooklying Treatment Duration (minutes) 10 Patient Tolerance Good Comments Ice pack under knee. PT-OP-T Assessment and Plan Start: 04/23/20 17:37 Freq: Status: Active Protocol: Document 05/14/20 10:29 LRN (Rec: 05/14/20 11:19 LRN [id number]) Physical Therapy Assessment Goals Five Impairment L knee pain (5-7/10) Short Term Goal (STG) Dec pain at rest to 4-5/10 STG Duration 06/03/20 Snf Goal (LTG) Decr pain at rest to 0-1/10 and with walking activity to 2 -3/10. LTG Duration 07/28/20 Four Impairment Decreased L knee AROM (10-52 deg's) Short Term Goal (STG) Increase L knee AROM 0-105 deg 's. (AROM before surgery: 5- 100 deg's). (05/06/20: L knee AROM sitting is 12-55 to start, ending therapy is 15-64 deg's; supine is 12-55 deg's) (05/14/20: L knee PROM: flex in supine: 70 deg's @ end of therapy) STG Duration 06/03/20 (05/14/20: Progressing ) Snf Goal (LTG) Increase L knee AROM 0-125 deg 's. LTG Duration 07/28/20 Three Impairment Pt unable to return to her prior pool exercise program, independently Short Term Goal (STG) Pt scar will be healed with good scar mobility and L knee AROM at least 5-95 deg's STG Duration 05/27/20 Snf Goal (LTG) Pt able to get into the local pool and do her prior ex program with modifications as needed. LTG Duration 06/24/20 Two Impairment Antalgic gait using a FWW for safety Short Term Goal (STG) Pt will be able to walk with a normal gait pattern without a walker. STG Duration 05/20/20 Manufacturing Maintenance Technician Goal (LTG) Pt will be able to walk a long distance of 6 blks or 2-3 miles with mild to no difficulty. LTG Duration 07/28/20 One Impairment Lacks appropriate self care HEP Manufacturing Maintenance Technician Goal (LTG) Pt will be independent in a self care HEP for continued L knee/hip exercises. HEP TO DATE: INSTRUCTIONS GIVEN: *Do's/Don 'ts of lymph massage. *LE self lymph massage. AROM: *Bilateral BKFO, * Sitting knee ext, *Supine Ankle pumps, and *written I/S for knee flex stretch f/b 10 active stretches. LTG Duration 07/28/20 (05/10/20: Progressing) Progress Towards Goals Progress Comments L knee active flex sitting is same. L knee PROM supine is 70 deg's . was 68 deg's to start. Assessment Summary Assessment Pt continues to push self although painful. Pain subsides when stretching stopped. Pt posterior L knee pain may be due to poor hamstring strength. MWM of anterior glide of tibial plateau with knee flexion. Physical Therapy Plan Frequency and Duration Frequency of Treatment 2x/Week Plan of Care Start Date 04/29/20 Plan of Care End Date 07/28/20 Next Visit Focus/Plan Next Note Type Treatment Note Next Visit Plan L TKA rehabilitation. Review self lymph massage and add lymph exercise program. Increase self ROM ex on Biodex , lymphedema massage to LLE if pt wants to remove her compression hose. Cryotherap/ Cryocuff and positioning to reduce edema. Curb training & HEP progression when appropriate.
--- NOTE | 2020-05-17 16:28 | PT.OTN ---
Current Diagnoses Unilateral primary osteoarthritis, left knee (05/17/20) Effusion, right knee (05/17/20) Pain in right knee (05/17/20) Muscle weakness (generalized) (05/17/20) Other abnormalities of gait and mobility (05/17/20) Physical Therapy Treatment Note PT-OP-A Visit Information Start: 04/23/20 17:37 Freq: Status: Active Protocol: Document 05/17/20 13:39 LRN (Rec: 05/17/20 14:24 LRN [id number]) Out-Patient Physical Therapy Visit Information Visit Information Visit Type Treatment Note Visit Start Time 13:39 Visit Stop Time 14:32 Total Visit Minutes 53 Visit Number 6 Evaluation Information Evaluation Date 04/29/20 Precautions Precautions Arthritis, Back & Neck pain since surgery. PT-OP-B Current Condition Start: 04/23/20 17:37 Freq: Status: Active Protocol: Document 04/29/20 12:47 LRN (Rec: 04/29/20 14:04 LRN [id number]) Current Condition History of Current Condition Onset Date 04/22/20 Current Complaints Decreased R knee mobility, must lift leg and walks with FWW. Dec sleep History of Current Condition Elective Day surgery @ [facility] for L TKA. Since home has been doing a home exercise program. She has been doing them 1-2x/day. DA staying with her until 2 days ago and she is expecting another DA to come in May. Future Testing and Treatments Planned Next appt is with Dr. Nava's assistance 05/07/20 (9:45a), appt with Dr Nava 06/04/20. Developmental History Developmental History R Anterior cruciate and MCL surgery after ski fall (1976) followed by surgery to repair and was in a full leg cast for 6 weeks. Pt reports arthritis set and has had injections in the R knee since . Treatment Goals Patient/Caregiver Goals Pt goal is to walk long distance (6 blks or 2-3 miles) . Walk normal without walker. Golf, water activities. 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 Baseline Function- Other Able to sleeps mostly through the night. Current Functional Impairments (Reported) Functional Limitations- ADL's Decreased gait ability, using FWW and must lift leg to walk Aches. Functional Limitations- Mobility/Gait Ambs with FWW. Walks around the house Functional Limitations- Other Difficulty sleeping, sleeps 1 hour at time. Personal Factors Other Personal Factors That May Effect Lives alone, will have help Therapy/Recovery from daughter coming in May. PT-OP-C Subjective Start: 04/23/20 17:37 Freq: Status: Active Protocol: Document 05/17/20 13:39 LRN (Rec: 05/17/20 14:24 LRN [id number]) OP-PT Subjective Patient Comments Patient Comments Took Percocet before coming to therapy. It was approved by referring MD. Had lingering sharp pain after therapy. PT-OP-G Mobility & Gait Start: 04/23/20 17:37 Freq: Status: Active Protocol: Document 04/29/20 12:47 LRN (Rec: 04/29/20 14:04 LRN [id number]) OP Mobility Evaluation Bed Mobility Supine to and from Sit Independent OP Gait Assessment Gait Gait Assistance Required: Independent Able to Maintain Weight Bearing Status Yes During Gait Assistive Devices Assistive Device Standard Walker Orthotic/Prosthetic Devices or Brace: No Gait Deviations General Gait Pattern Antalgic,Decreased Stride Length,Flexed Trunk Stair Climbing Evaluation Comments Stair Climbing Comments Pt has no stairs at home. PT-OP-J Posture/Palpation/Skin Start: 04/23/20 17:37 Freq: Status: Active Protocol: Document 04/29/20 12:47 LRN (Rec: 04/29/20 14:04 LRN [id number]) Palpation Assessment Location L knee Palpation Location Around L knee joint Palpation Findings Edema,Soft Tissue Tightness, Tenderness Palpation Details Increased temperature PT-OP-K Range of Motion Start: 04/23/20 17:37 Freq: Status: Active Protocol: Document 05/17/20 13:39 LRN (Rec: 05/17/20 14:24 LRN [id number]) Knee Goniometric Range of Motion Knee Sitting L knee AROM Knee ROM WFL No Patient Position Sitting Flexion Active (degrees) 72 Flexion Passive (degrees) 75 PT-OP-M Strength Start: 04/23/20 17:37 Freq: Status: Active Protocol: Document 04/29/20 12:47 LRN (Rec: 04/29/20 14:04 LRN [id number]) Knee Strength Knee Manual Muscle Testing Right Flexion (S2) 5 Normal Extension (L3) 5 Normal Left Flexion (S2) 3+ Fair+ Extension (L3) 3+ Fair+ PT-OP-Q Treatments Start: 04/23/20 17:37 Freq: Status: Active Protocol: Document 05/17/20 13:39 LRN (Rec: 05/17/20 14:24 LRN [id number]) Cardio Equipment Recumbent Elliptical ([employer]) Duration (Minutes) 10 Resistance 1 Seat Position 8 moving to 6 throughout therapy Therapeutic Exercises Sitting Exercises Passive knee flex Sitting Exercise Name Fwd scooting in sitting Side right Reps/Minutes 25' Comments R knee passive flex is 64 deg' s Other Exercises LE seated Lymph ex Other Exercise Name LE seated/sup lymph ex (focus on LLE) Side bilateral Reps/Minutes 5-10x each Comments 15' Extra time for training in different positions. Manual Therapy Treatment Soft Tissue Mobilization Lymphatic drainage Body Location Lymph massage with L leg in elevation Mobilization Type Manual Lymphatic Drainage Intensity/Depth Superficial Body Position Supine Comments Training with pt following I/S 's and doing self massage. L anteromedial knee Body Location L anter knee and around scar Mobilization Type Strumming,Other Intensity/Depth Superficial to moderate Body Position Hooklying Comments Scar mob Self-Care/Home Management Treatment Education Patient Education Home Exercise Program Activities Self-Care/Home Management Activities Issued & reviewed LE lymph exercise. PT-OP-R Modalities Start: 04/23/20 17:37 Freq: Status: Active Protocol: Document 05/17/20 13:39 LRN (Rec: 05/17/20 14:24 LRN [id number]) Hot Pack/Cold Pack Treatment Cold Pack Location L Knee, legs on bolster Patient Position Hooklying Treatment Duration (minutes) 10 Patient Tolerance Good Comments Ice pack under knee. 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 LTG Duration 07/28/20 Four Impairment Decreased L knee AROM (10-52 deg's) Short Term Goal (STG) Increase L knee AROM 0-105 deg 's. (AROM before surgery: 5- 100 deg's). (05/06/20: L knee AROM sitting is 12-55 to start, ending therapy is 15-64 deg's; supine is 12-55 deg's) (05/17/20: L knee (sitting) AROM: Flex is 72 deg's & PROM: flex is 75 deg's (@ end of therapy) STG Duration 06/03/20 (05/17/20: Progressing) Fpc Goal (LTG) Increase L knee AROM 0-125 deg 's. LTG Duration 07/28/20 Three Impairment Pt unable to return to her prior pool exercise program, independently Short Term Goal (STG) Pt scar will be healed with good scar mobility and L knee AROM at least 5-95 deg's STG Duration 05/27/20 Entry Level Accounting Clerk Goal (LTG) Pt able to get into the local pool and do her prior ex program with modifications as needed. LTG Duration 06/24/20 Two Impairment Antalgic gait using a FWW for safety Short Term Goal (STG) Pt will be able to walk with a normal gait pattern without a walker. STG Duration 05/20/20 (05/17/20: MET GOAL) Fpc Goal (LTG) Pt will be able to walk a long distance of 6 blks or 2-3 miles with mild to no difficulty. LTG Duration 07/28/20 One Impairment Lacks appropriate self care HEP Fpc Goal (LTG) Pt will be independent in a self care HEP for continued L knee/hip exercises. HEP TO DATE: INSTRUCTIONS GIVEN: *Do's/Don 'ts of lymph massage. *LE self lymph massage. AROM: *Bilateral BKFO, * Sitting knee ext, *Supine Ankle pumps, and *written I/S for knee flex stretch f/b 10 active stretches. LTG Duration 07/28/20 (05/10/20: Progressing) Progress Towards Goals Progress Towards Goals Slow Progress due to Activity Tolerance Assessment Summary Assessment Pt had poor response to therapy last session due to increased pain once home. Today, pt ambs into therapy without an assistive device and mostly normal gait. Step lengths equal but short. Pt leans a little more on R than L. Her L knee ROM is improved by 2 deg's passively. Progress is slow, possibly due to swelling at knee. Physical Therapy Plan Frequency and Duration Frequency of Treatment 2x/Week Plan of Care Start Date 04/29/20 Plan of Care End Date 07/28/20 Next Visit Focus/Plan Next Note Type Treatment Note Next Visit Plan L TKA rehabilitation. Review lymph exercise program. Increase self ROM ex on Ex bike or Biodex if pt not able to tolerate bike. STM and scar mob. Cryotherap/Cryocuff and positioning to reduce edema. Curb training & HEP progression when appropriate.
--- NOTE | 2020-05-21 11:38 | PT.OTN ---
Current Diagnoses Unilateral primary osteoarthritis, left knee (05/21/20) Effusion, right knee (05/21/20) Pain in right knee (05/21/20) Muscle weakness (generalized) (05/21/20) Other abnormalities of gait and mobility (05/21/20) Physical Therapy Treatment Note PT-OP-A Visit Information Start: 04/23/20 17:37 Freq: Status: Active Protocol: Document 05/21/20 10:32 LRN (Rec: 05/21/20 11:36 LRN [id number]) Out-Patient Physical Therapy Visit Information Visit Information Visit Type Treatment Note Visit Start Time 10:32 Visit Stop Time 11:24 Total Visit Minutes 52 Visit Number 7 Evaluation Information Evaluation Date 04/29/20 Precautions Precautions Arthritis, Back & Neck pain since surgery. PT-OP-B Current Condition Start: 04/23/20 17:37 Freq: Status: Active Protocol: Document 04/29/20 12:47 LRN (Rec: 04/29/20 14:04 LRN [id number]) Current Condition History of Current Condition Onset Date 04/22/20 Current Complaints Decreased R knee mobility, must lift leg and walks with FWW. Dec sleep History of Current Condition Elective Day surgery @ [facility] for L TKA. Since home has been doing a home exercise program. She has been doing them 1-2x/day. DA staying with her until 2 days ago and she is expecting another DA to come in May. Future Testing and Treatments Planned Next appt is with Dr. Nava's assistance 05/07/20 (9:45a), appt with Dr Nava 06/04/20. Developmental History Developmental History R Anterior cruciate and MCL surgery after ski fall (1976) followed by surgery to repair and was in a full leg cast for 6 weeks. Pt reports arthritis set and has had injections in the R knee since . Treatment Goals Patient/Caregiver Goals Pt goal is to walk long distance (6 blks or 2-3 miles) . Walk normal without walker. Golf, water activities. 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 Baseline Function- Other Able to sleeps mostly through the night. Current Functional Impairments (Reported) Functional Limitations- ADL's Decreased gait ability, using FWW and must lift leg to walk Aches. Functional Limitations- Mobility/Gait Ambs with FWW. Walks around the house Functional Limitations- Other Difficulty sleeping, sleeps 1 hour at time. Personal Factors Other Personal Factors That May Effect Lives alone, will have help Therapy/Recovery from daughter coming in May. PT-OP-C Subjective Start: 04/23/20 17:37 Freq: Status: Active Protocol: Document 05/21/20 10:32 LRN (Rec: 05/21/20 11:36 LRN [id number]) OP-PT Subjective Patient Comments Patient Comments Took Percocet and has been exercising. PT-OP-G Mobility & Gait Start: 04/23/20 17:37 Freq: Status: Active Protocol: Document 04/29/20 12:47 LRN (Rec: 04/29/20 14:04 LRN [id number]) OP Mobility Evaluation Bed Mobility Supine to and from Sit Independent OP Gait Assessment Gait Gait Assistance Required: Independent Able to Maintain Weight Bearing Status Yes During Gait Assistive Devices Assistive Device Standard Walker Orthotic/Prosthetic Devices or Brace: No Gait Deviations General Gait Pattern Antalgic,Decreased Stride Length,Flexed Trunk Stair Climbing Evaluation Comments Stair Climbing Comments Pt has no stairs at home. PT-OP-J Posture/Palpation/Skin Start: 04/23/20 17:37 Freq: Status: Active Protocol: Document 04/29/20 12:47 LRN (Rec: 04/29/20 14:04 LRN [id number]) Palpation Assessment Location L knee Palpation Location Around L knee joint Palpation Findings Edema,Soft Tissue Tightness, Tenderness Palpation Details Increased temperature PT-OP-K Range of Motion Start: 04/23/20 17:37 Freq: Status: Active Protocol: Document 05/21/20 10:32 LRN (Rec: 05/21/20 11:36 LRN [id number]) Knee Goniometric Range of Motion Knee Supine L knee AROM Knee ROM WFL No Patient Position Supine Flexion Passive (degrees) 178 Sitting L knee AROM Knee ROM WFL No Patient Position Sitting Comments Starting AAROM: 7-72 deg's PT-OP-M Strength Start: 04/23/20 17:37 Freq: Status: Active Protocol: Document 04/29/20 12:47 LRN (Rec: 04/29/20 14:04 LRN [id number]) Knee Strength Knee Manual Muscle Testing Right Flexion (S2) 5 Normal Extension (L3) 5 Normal Left Flexion (S2) 3+ Fair+ Extension (L3) 3+ Fair+ PT-OP-Q Treatments Start: 04/23/20 17:37 Freq: Status: Active Protocol: Document 05/21/20 10:32 LRN (Rec: 05/21/20 11:36 LRN [id number]) Cardio Equipment Recumbent Bicycle Duration (Minutes) 10 Seat Position 2 Therapeutic Exercises Supine Exercises Heel Slides Supine Exercise Name Heel slides/knee flex at 90 deg's hip flex Side left Reps/Minutes 5' Prone Exercises Knee flex Prone Exercise Name Passive & assisted knee flex Side left Reps/Minutes 27' Comments Training of self stretch PT-OP-R Modalities Start: 04/23/20 17:37 Freq: Status: Active Protocol: Document 05/21/20 10:32 LRN (Rec: 05/21/20 11:36 LRN [id number]) Hot Pack/Cold Pack Treatment Cold Pack Location L Knee, legs on bolster Patient Position Hooklying Treatment Duration (minutes) 10 Patient Tolerance Good Comments Ice pack under knee. 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 LTG Duration 07/28/20 Four Impairment Decreased L knee AROM (10-52 deg's) Short Term Goal (STG) Increase L knee AROM 0-105 deg 's. (AROM before surgery: 5- 100 deg's). (05/06/20: L knee AROM sitting is 12-55 to start, ending therapy is 15-64 deg's; supine is 12-55 deg's) (05/21/20: L knee (sup) PROM: flex is 78 deg's (@ end of therapy) STG Duration 06/03/20 (05/17/20: Progressing) Industrial Maintenance Electrician Goal (LTG) Increase L knee AROM 0-125 deg 's. LTG Duration 07/28/20 Three Impairment Pt unable to return to her prior pool exercise program, independently Short Term Goal (STG) Pt scar will be healed with good scar mobility and L knee AROM at least 5-95 deg's STG Duration 05/27/20 Long-Term Goal (LTG) Pt able to get into the local pool and do her prior ex program with modifications as needed. LTG Duration 06/24/20 Two Impairment Antalgic gait using a FWW for safety Short Term Goal (STG) Pt will be able to walk with a normal gait pattern without a walker. STG Duration 05/20/20 (05/17/20: MET GOAL) Long-Term Goal (LTG) Pt will be able to walk a long distance of 6 blks or 2-3 miles with mild to no difficulty. LTG Duration 07/28/20 One Impairment Lacks appropriate self care HEP Industrial Maintenance Electrician Goal (LTG) Pt will be independent in a self care HEP for continued L knee/hip exercises. HEP TO DATE: INSTRUCTIONS GIVEN: *Do's/Don 'ts of lymph massage. *LE self lymph massage. AROM: *Bilateral BKFO, * Sitting knee ext, *Supine Ankle pumps, and *written I/S for knee flex stretch f/b 10 active stretches. LTG Duration 07/28/20 (05/10/20: Progressing) Progress Towards Goals Progress Towards Goals Slow Progress due to Activity Tolerance Progress Comments L knee AAROM improved 72 to 78 deg's after therapy. Assessment Summary Assessment Fair tolerance to knee flex stretch. Pt DA coming next week and will hopefully help with pt's HEP. Physical Therapy Plan Frequency and Duration Frequency of Treatment 2x/Week Plan of Care Start Date 04/29/20 Plan of Care End Date 07/28/20 Next Visit Focus/Plan Next Note Type Treatment Note Next Visit Plan L TKA rehabilitation. Review lymph exercise program. Increase self ROM ex on Ex bike or Biodex. STM and scar mob. Cryotherap/Cryocuff and positioning to reduce edema. Curb training & HEP progression when appropriate.
--- NOTE | 2020-05-24 16:29 | PT.OTN ---
Current Diagnoses Unilateral primary osteoarthritis, left knee (05/24/20) Effusion, right knee (05/24/20) Pain in right knee (05/24/20) Muscle weakness (generalized) (05/24/20) Other abnormalities of gait and mobility (05/24/20) Physical Therapy Treatment Note PT-OP-A Visit Information Start: 04/23/20 17:37 Freq: Status: Active Protocol: Document 05/24/20 08:17 LRN (Rec: 05/24/20 09:59 LRN [id number]) Out-Patient Physical Therapy Visit Information Visit Information Visit Type Treatment Note Visit Start Time 08:17 Visit Stop Time 09:07 Total Visit Minutes 50 Visit Number 8 Evaluation Information Evaluation Date 04/29/20 Precautions Precautions Arthritis, Back & Neck pain since surgery. PT-OP-B Current Condition Start: 04/23/20 17:37 Freq: Status: Active Protocol: Document 04/29/20 12:47 LRN (Rec: 04/29/20 14:04 LRN [id number]) Current Condition History of Current Condition Onset Date 04/22/20 Current Complaints Decreased R knee mobility, must lift leg and walks with FWW. Dec sleep History of Current Condition Elective Day surgery @ [facility] for L TKA. Since home has been doing a home exercise program. She has been doing them 1-2x/day. DA staying with her until 2 days ago and she is expecting another DA to come in May. Future Testing and Treatments Planned Next appt is with Dr. Nava's assistance 05/07/20 (9:45a), appt with Dr Nava 06/04/20. Developmental History Developmental History R Anterior cruciate and MCL surgery after ski fall (1976) followed by surgery to repair and was in a full leg cast for 6 weeks. Pt reports arthritis set and has had injections in the R knee since . Treatment Goals Patient/Caregiver Goals Pt goal is to walk long distance (6 blks or 2-3 miles) . Walk normal without walker. Golf, water activities. 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 Baseline Function- Other Able to sleeps mostly through the night. Current Functional Impairments (Reported) Functional Limitations- ADL's Decreased gait ability, using FWW and must lift leg to walk Aches. Functional Limitations- Mobility/Gait Ambs with FWW. Walks around the house Functional Limitations- Other Difficulty sleeping, sleeps 1 hour at time. Personal Factors Other Personal Factors That May Effect Lives alone, will have help Therapy/Recovery from daughter coming in May. PT-OP-C Subjective Start: 04/23/20 17:37 Freq: Status: Active Protocol: Document 05/24/20 08:17 LRN (Rec: 05/24/20 09:59 LRN [id number]) OP-PT Subjective Patient Comments Patient Comments Asked the Dr to call you, to help problem solve increasing L knee flexion to 110 deg's. PT-OP-G Mobility & Gait Start: 04/23/20 17:37 Freq: Status: Active Protocol: Document 04/29/20 12:47 LRN (Rec: 04/29/20 14:04 LRN [id number]) OP Mobility Evaluation Bed Mobility Supine to and from Sit Independent OP Gait Assessment Gait Gait Assistance Required: Independent Able to Maintain Weight Bearing Status Yes During Gait Assistive Devices Assistive Device Standard Walker Orthotic/Prosthetic Devices or Brace: No Gait Deviations General Gait Pattern Antalgic,Decreased Stride Length,Flexed Trunk Stair Climbing Evaluation Comments Stair Climbing Comments Pt has no stairs at home. PT-OP-J Posture/Palpation/Skin Start: 04/23/20 17:37 Freq: Status: Active Protocol: Document 04/29/20 12:47 LRN (Rec: 04/29/20 14:04 LRN [id number]) Palpation Assessment Location L knee Palpation Location Around L knee joint Palpation Findings Edema,Soft Tissue Tightness, Tenderness Palpation Details Increased temperature PT-OP-K Range of Motion Start: 04/23/20 17:37 Freq: Status: Active Protocol: Document 05/21/20 10:32 LRN (Rec: 05/21/20 11:36 LRN [id number]) Knee Goniometric Range of Motion Knee Supine L knee AROM Knee ROM WFL No Patient Position Supine Flexion Passive (degrees) 178 Sitting L knee AROM Knee ROM WFL No Patient Position Sitting Comments Starting AAROM: 7-72 deg's PT-OP-M Strength Start: 04/23/20 17:37 Freq: Status: Active Protocol: Document 04/29/20 12:47 LRN (Rec: 04/29/20 14:04 LRN [id number]) Knee Strength Knee Manual Muscle Testing Right Flexion (S2) 5 Normal Extension (L3) 5 Normal Left Flexion (S2) 3+ Fair+ Extension (L3) 3+ Fair+ PT-OP-Q Treatments Start: 04/23/20 17:37 Freq: Status: Active Protocol: Document 05/24/20 08:17 LRN (Rec: 05/24/20 09:59 LRN [id number]) Cardio Equipment Bicycle (Upright) Duration (Minutes) 10 Resistance 0 Seat Position 3 Other 78 deg's knee flex Therapeutic Exercises Supine Exercises Heel Slides Supine Exercise Name Heel slides/knee flex at 90 deg's hip flex Side left Reps/Minutes 5' Prone Exercises Knee hang into ext Prone Exercise Name Knee ext stretch Side left Reps/Minutes 2' Knee flex Prone Exercise Name Passive & assisted knee flex Side left Reps/Minutes 23' Comments Training of self stretch PT-OP-R Modalities Start: 04/23/20 17:37 Freq: Status: Active Protocol: Document 05/24/20 08:17 LRN (Rec: 05/24/20 09:59 LRN [id number]) Hot Pack/Cold Pack Treatment Cold Pack Location L Knee, legs on bolster Patient Position Hooklying Treatment Duration (minutes) 10 Patient Tolerance Good Comments Ice pack under knee. PT-OP-T Assessment and Plan Start: 04/23/20 17:37 Freq: Status: Active Protocol: Document 05/24/20 08:17 LRN (Rec: 05/24/20 09:59 LRN [id number]) Physical Therapy Assessment Goals Five Impairment L knee pain (5-7/10) Short Term Goal (STG) Dec pain at rest to 4-5/10 STG Duration 06/03/20 Penitentiary Goal (LTG) Decr pain at rest to 0-1/10 and with walking activity to 2 -3/10. LTG Duration 07/28/20 Four Impairment Decreased L knee AROM (10-52 deg's) Short Term Goal (STG) Increase L knee AROM 0-105 deg 's. (AROM before surgery: 5- 100 deg's). (05/24/20: L knee (sup) PROM: flex is 85 deg's @ end of therapy) STG Duration 06/03/20 (05/24/20: Progressing) Penitentiary Goal (LTG) Increase L knee AROM 0-125 deg 's. LTG Duration 07/28/20 Three Impairment Pt unable to return to her prior pool exercise program, independently Short Term Goal (STG) Pt scar will be healed with good scar mobility and L knee AROM at least 5-95 deg's STG Duration 05/27/20 Penitentiary Goal (LTG) Pt able to get into the local pool and do her prior ex program with modifications as needed. LTG Duration 06/24/20 Two Impairment Antalgic gait using a FWW for safety Short Term Goal (STG) Pt will be able to walk with a normal gait pattern without a walker. STG Duration 05/20/20 (05/17/20: MET GOAL) Penitentiary Goal (LTG) Pt will be able to walk a long distance of 6 blks or 2-3 miles with mild to no difficulty. LTG Duration 07/28/20 One Impairment Lacks appropriate self care HEP Penitentiary Goal (LTG) Pt will be independent in a self care HEP for continued L knee/hip exercises. HEP TO DATE: INSTRUCTIONS GIVEN: *Do's/Don 'ts of lymph massage. *LE self lymph massage. AROM: *Bilateral BKFO, * Sitting knee ext, *Supine Ankle pumps, and *written I/S for knee flex stretch f/b 10 active stretches. LTG Duration 07/28/20 (05/10/20: Progressing) Progress Towards Goals Progress Comments L knee AAROM improved from 78 deg's to 85 deg's knee flexion . Assessment Summary Assessment 74 yo female s/p L TKA on 04/22. Pt pushing self to possibly over tolerance of pain. She gained 7 deg's L knee flex at end of therapy. Pt is stoic and tearful at end of icing; therefore she may be going beyond tolerance to achieve surgeon goal of 115 deg's knee flex by next week. Pt progress will be more difficulty since she reportedly has said her pre- TKA L knee AROM was only 100 deg's flexion. STM and Scar mob are quite restricted. Physical Therapy Plan Frequency and Duration Frequency of Treatment 3x/Week Plan of Care Start Date 05/24/20 Plan of Care End Date 07/28/20 Next Visit Focus/Plan Next Note Type Treatment Note Next Visit Plan L TKA rehabilitation. Review lymph exercise program. STM/ Scar mob to start or immediately after bike with light>moderate flex stretch applied. Increase self ROM ex on Ex bike or Biodex. STM and scar mob. Cryotherapy/ Cryocuff and positioning to reduce edema and improve ROM ( as tolerated). Curb training & HEP progression when appropriate.
--- NOTE | 2020-05-24 16:55 | PT.OPPN ---
Current Diagnoses Unilateral primary osteoarthritis, left knee (05/24/20) Effusion, right knee (05/24/20) Pain in right knee (05/24/20) Muscle weakness (generalized) (05/24/20) Other abnormalities of gait and mobility (05/24/20) Physical Therapy Progress Note PT-OP-A Visit Information Start: 04/23/20 17:37 Freq: Status: Active Protocol: Document 05/24/20 08:17 LRN (Rec: 05/24/20 09:59 LRN [id number]) Out-Patient Physical Therapy Visit Information Visit Information Visit Type Treatment Note Visit Start Time 08:17 Visit Stop Time 09:07 Total Visit Minutes 50 Visit Number 8 Evaluation Information Evaluation Date 04/29/20 Precautions Precautions Arthritis, Back & Neck pain since surgery. PT-OP-B Current Condition Start: 04/23/20 17:37 Freq: Status: Active Protocol: Document 04/29/20 12:47 LRN (Rec: 04/29/20 14:04 LRN [id number]) Current Condition History of Current Condition Onset Date 04/22/20 Current Complaints Decreased R knee mobility, must lift leg and walks with FWW. Dec sleep History of Current Condition Elective Day surgery @ [facility] for L TKA. Since home has been doing a home exercise program. She has been doing them 1-2x/day. DA staying with her until 2 days ago and she is expecting another DA to come in May. Future Testing and Treatments Planned Next appt is with Dr. Nava's assistance 05/07/20 (9:45a), appt with Dr Nava 06/04/20. Developmental History Developmental History R Anterior cruciate and MCL surgery after ski fall (1976) followed by surgery to repair and was in a full leg cast for 6 weeks. Pt reports arthritis set and has had injections in the R knee since . Treatment Goals Patient/Caregiver Goals Pt goal is to walk long distance (6 blks or 2-3 miles) . Walk normal without walker. Golf, water activities. 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 Baseline Function- Other Able to sleeps mostly through the night. Current Functional Impairments (Reported) Functional Limitations- ADL's Decreased gait ability, using FWW and must lift leg to walk Aches. Functional Limitations- Mobility/Gait Ambs with FWW. Walks around the house Functional Limitations- Other Difficulty sleeping, sleeps 1 hour at time. Personal Factors Other Personal Factors That May Effect Lives alone, will have help Therapy/Recovery from daughter coming in May. PT-OP-C Subjective Start: 04/23/20 17:37 Freq: Status: Active Protocol: Document 05/24/20 08:17 LRN (Rec: 05/24/20 09:59 LRN [id number]) OP-PT Subjective Patient Comments Patient Comments Asked the Dr to call you, to help problem solve increasing L knee flexion to 110 deg's. PT-OP-G Mobility & Gait Start: 04/23/20 17:37 Freq: Status: Active Protocol: Document 04/29/20 12:47 LRN (Rec: 04/29/20 14:04 LRN [id number]) OP Mobility Evaluation Bed Mobility Supine to and from Sit Independent OP Gait Assessment Gait Gait Assistance Required: Independent Able to Maintain Weight Bearing Status Yes During Gait Assistive Devices Assistive Device Standard Walker Orthotic/Prosthetic Devices or Brace: No Gait Deviations General Gait Pattern Antalgic,Decreased Stride Length,Flexed Trunk Stair Climbing Evaluation Comments Stair Climbing Comments Pt has no stairs at home. PT-OP-J Posture/Palpation/Skin Start: 04/23/20 17:37 Freq: Status: Active Protocol: Document 04/29/20 12:47 LRN (Rec: 04/29/20 14:04 LRN [id number]) Palpation Assessment Location L knee Palpation Location Around L knee joint Palpation Findings Edema,Soft Tissue Tightness, Tenderness Palpation Details Increased temperature PT-OP-K Range of Motion Start: 04/23/20 17:37 Freq: Status: Active Protocol: Document 05/21/20 10:32 LRN (Rec: 05/21/20 11:36 LRN [id number]) Knee Goniometric Range of Motion Knee Measured in Degrees Supine L knee AROM Knee ROM WFL No Patient Position Supine Flexion Passive (degrees) 178 Sitting L knee AROM Knee ROM WFL No Patient Position Sitting Comments Starting AAROM: 7-72 deg's PT-OP-M Strength Start: 04/23/20 17:37 Freq: Status: Active Protocol: Document 04/29/20 12:47 LRN (Rec: 04/29/20 14:04 LRN [id number]) Knee Strength Knee Manual Muscle Testing Right Flexion (S2) 5 Normal Extension (L3) 5 Normal Left Flexion (S2) 3+ Fair+ Extension (L3) 3+ Fair+ PT-OP-T Assessment and Plan Start: 04/23/20 17:37 Freq: Status: Active Protocol: Document 05/24/20 08:17 LRN (Rec: 05/24/20 09:59 LRN [id number]) Physical Therapy Assessment Goals Five Impairment L knee pain (5-7/10) Short Term Goal (STG) Dec pain at rest to 4-5/10 STG Duration 06/03/20 Senior Living Goal (LTG) Decr pain at rest to 0-1/10 and with walking activity to 2 -3/10. LTG Duration 07/28/20 Four Impairment Decreased L knee AROM (10-52 deg's) Short Term Goal (STG) Increase L knee AROM 0-105 deg 's. (AROM before surgery: 5- 100 deg's). (05/24/20: L knee (sup) PROM: flex is 85 deg's @ end of therapy) STG Duration 06/03/20 (05/24/20: Progressing) Route Sales Delivery Driver Goal (LTG) Increase L knee AROM 0-125 deg 's. LTG Duration 07/28/20 Three Impairment Pt unable to return to her prior pool exercise program, independently Short Term Goal (STG) Pt scar will be healed with good scar mobility and L knee AROM at least 5-95 deg's STG Duration 05/27/20 Senior Living Goal (LTG) Pt able to get into the local pool and do her prior ex program with modifications as needed. LTG Duration 06/24/20 Two Impairment Antalgic gait using a FWW for safety Short Term Goal (STG) Pt will be able to walk with a normal gait pattern without a walker. STG Duration 05/20/20 (05/17/20: MET GOAL) Route Sales Delivery Driver Goal (LTG) Pt will be able to walk a long distance of 6 blks or 2-3 miles with mild to no difficulty. LTG Duration 07/28/20 One Impairment Lacks appropriate self care HEP Route Sales Delivery Driver Goal (LTG) Pt will be independent in a self care HEP for continued L knee/hip exercises. HEP TO DATE: INSTRUCTIONS GIVEN: *Do's/Don 'ts of lymph massage. *LE self lymph massage. AROM: *Bilateral BKFO, * Sitting knee ext, *Supine Ankle pumps, and *written I/S for knee flex stretch f/b 10 active stretches. LTG Duration 07/28/20 (05/10/20: Progressing) Progress Towards Goals Progress Comments L knee AAROM improved from 78 deg's to 85 deg's knee flexion . Assessment Summary Assessment 74 yo female s/p L TKA on 04/22. Pt pushing self to possibly over tolerance of pain. She gained 7 deg's L knee flex at end of therapy. Pt is stoic and tearful at end of icing; therefore she may be going beyond tolerance to achieve surgeon goal of 115 deg's knee flex by next week. Pt progress will be more difficulty since she reportedly has said her pre- TKA L knee AROM was only 100 deg's flexion. STM and Scar mob are quite restricted. Physical Therapy Plan Frequency and Duration Frequency of Treatment 3x/Week Plan of Care Start Date 05/24/20 Plan of Care End Date 07/28/20 Next Visit Focus/Plan Next Note Type Treatment Note Next Visit Plan L TKA rehabilitation. Review lymph exercise program. STM/ Scar mob to start or immediately after bike with light>moderate flex stretch applied. Increase self ROM ex on Ex bike or Biodex. STM and scar mob. Cryotherapy/ Cryocuff and positioning to reduce edema and improve ROM ( as tolerated). Curb training & HEP progression when appropriate.
--- NOTE | 2020-05-24 16:57 | PT.OPPOC ---
Physical, Occupational & Speech Therapy At [facility] Current Diagnoses Unilateral primary osteoarthritis, left knee (05/24/20) Effusion, right knee (05/24/20) Pain in right knee (05/24/20) Muscle weakness (generalized) (05/24/20) Other abnormalities of gait and mobility (05/24/20) Visit Care Team Role Provider Type Latesha Fernandes PA-C Family Provider Non-Staff Primary Care Provider Specialty: Internal Medicine Address: [address] [place] [address], [id number] Email: [email or web address] [address] Marin MD Attending Provider Physician Referring Provider Specialty: Orthopedic Surgery Address: [address] [place] [address], [id number] Email: [email or web address] Of Care PT-OP-T Assessment and Plan Start: 04/23/20 17:37 Freq: Status: Active Protocol: Document 05/24/20 08:17 LRN (Rec: 05/24/20 09:59 LRN [id number]) Physical Therapy Assessment Goals Five Impairment L knee pain (5-7/10) Short Term Goal (STG) Dec pain at rest to 4-5/10 STG Duration 06/03/20 Residential Goal (LTG) Decr pain at rest to 0-1/10 and with walking activity to 2 -3/10. LTG Duration 07/28/20 Four Impairment Decreased L knee AROM (10-52 deg's) Short Term Goal (STG) Increase L knee AROM 0-105 deg 's. (AROM before surgery: 5- 100 deg's). (05/24/20: L knee (sup) PROM: flex is 85 deg's @ end of therapy) STG Duration 06/03/20 (05/24/20: Progressing) Skip Loader Goal (LTG) Increase L knee AROM 0-125 deg 's. LTG Duration 07/28/20 Three Impairment Pt unable to return to her prior pool exercise program, independently Short Term Goal (STG) Pt scar will be healed with good scar mobility and L knee AROM at least 5-95 deg's STG Duration 05/27/20 Skip Loader Goal (LTG) Pt able to get into the local pool and do her prior ex program with modifications as needed. LTG Duration 06/24/20 Two Impairment Antalgic gait using a FWW for safety Short Term Goal (STG) Pt will be able to walk with a normal gait pattern without a walker. STG Duration 05/20/20 (05/17/20: MET GOAL) Skip Loader Goal (LTG) Pt will be able to walk a long distance of 6 blks or 2-3 miles with mild to no difficulty. LTG Duration 07/28/20 One Impairment Lacks appropriate self care HEP Skip Loader Goal (LTG) Pt will be independent in a self care HEP for continued L knee/hip exercises. HEP TO DATE: INSTRUCTIONS GIVEN: *Do's/Don 'ts of lymph massage. *LE self lymph massage. AROM: *Bilateral BKFO, * Sitting knee ext, *Supine Ankle pumps, and *written I/S for knee flex stretch f/b 10 active stretches. LTG Duration 07/28/20 (05/10/20: Progressing) Progress Towards Goals Progress Comments L knee AAROM improved from 78 deg's to 85 deg's knee flexion . Assessment Summary Assessment 74 yo female s/p L TKA on 04/22. Pt pushing self to possibly over tolerance of pain. She gained 7 deg's L knee flex at end of therapy. Pt is stoic and tearful at end of icing; therefore she may be going beyond tolerance to achieve surgeon goal of 115 deg's knee flex by next week. Pt progress will be more difficulty since she reportedly has said her pre- TKA L knee AROM was only 100 deg's flexion. STM and Scar mob are quite restricted. Physical Therapy Plan Frequency and Duration Frequency of Treatment 3x/Week Plan of Care Start Date 05/24/20 Plan of Care End Date 07/28/20 Next Visit Focus/Plan Next Note Type Treatment Note Next Visit Plan L TKA rehabilitation. Review lymph exercise program. STM/ Scar mob to start or immediately after bike with light>moderate flex stretch applied. Increase self ROM ex on Ex bike or Biodex. STM and scar mob. Cryotherapy/ Cryocuff and positioning to reduce edema and improve ROM ( as tolerated). Curb training & HEP progression when appropriate. Plan of Care Dates Plan of Care Start Date 05/24/20 Plan of Care End Date 07/28/20 Electronically Signed by: Gabriella Hirsch, PT 05/24/20 1831 Please Sign and Return: I have reviewed this Plan of Care and certify that the skilled therapy services above are required to meet the patient?s needs. Physician Signature Date Printed Name and Credentials Clinical Instructor Signature Printed Name and Credentials
--- NOTE | 2020-05-28 16:17 | PT.OTN ---
Current Diagnoses Unilateral primary osteoarthritis, left knee (05/28/20) Effusion, right knee (05/28/20) Pain in right knee (05/28/20) Muscle weakness (generalized) (05/28/20) Other abnormalities of gait and mobility (05/28/20) Physical Therapy Treatment Note PT-OP-A Visit Information Start: 04/23/20 17:37 Freq: Status: Active Protocol: Document 05/28/20 10:35 LRN (Rec: 05/28/20 11:18 LRN [id number]) Out-Patient Physical Therapy Visit Information Visit Information Visit Type Treatment Note Visit Start Time 10:35 Visit Stop Time 11:25 Total Visit Minutes 50 Visit Number 9 Evaluation Information Evaluation Date 04/29/20 Precautions Precautions Arthritis, Back & Neck pain since surgery. PT-OP-B Current Condition Start: 04/23/20 17:37 Freq: Status: Active Protocol: Document 04/29/20 12:47 LRN (Rec: 04/29/20 14:04 LRN [id number]) Current Condition History of Current Condition Onset Date 04/22/20 Current Complaints Decreased R knee mobility, must lift leg and walks with FWW. Dec sleep History of Current Condition Elective Day surgery @ [facility] for L TKA. Since home has been doing a home exercise program. She has been doing them 1-2x/day. DA staying with her until 2 days ago and she is expecting another DA to come in May. Future Testing and Treatments Planned Next appt is with Dr. Nava's assistance 05/07/20 (9:45a), appt with Dr Nava 06/04/20. Developmental History Developmental History R Anterior cruciate and MCL surgery after ski fall (1976) followed by surgery to repair and was in a full leg cast for 6 weeks. Pt reports arthritis set and has had injections in the R knee since . Treatment Goals Patient/Caregiver Goals Pt goal is to walk long distance (6 blks or 2-3 miles) . Walk normal without walker. Golf, water activities. 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 Baseline Function- Other Able to sleeps mostly through the night. Current Functional Impairments (Reported) Functional Limitations- ADL's Decreased gait ability, using FWW and must lift leg to walk Aches. Functional Limitations- Mobility/Gait Ambs with FWW. Walks around the house Functional Limitations- Other Difficulty sleeping, sleeps 1 hour at time. Personal Factors Other Personal Factors That May Effect Lives alone, will have help Therapy/Recovery from daughter coming in May. PT-OP-C Subjective Start: 04/23/20 17:37 Freq: Status: Active Protocol: Document 05/28/20 10:35 LRN (Rec: 05/28/20 11:18 LRN [id number]) OP-PT Subjective Patient Comments Patient Comments States she has requested therapy from her surgeon 3x/ week therapy. PT-OP-G Mobility & Gait Start: 04/23/20 17:37 Freq: Status: Active Protocol: Document 04/29/20 12:47 LRN (Rec: 04/29/20 14:04 LRN [id number]) OP Mobility Evaluation Bed Mobility Supine to and from Sit Independent OP Gait Assessment Gait Gait Assistance Required: Independent Able to Maintain Weight Bearing Status Yes During Gait Assistive Devices Assistive Device Standard Walker Orthotic/Prosthetic Devices or Brace: No Gait Deviations General Gait Pattern Antalgic,Decreased Stride Length,Flexed Trunk Stair Climbing Evaluation Comments Stair Climbing Comments Pt has no stairs at home. PT-OP-J Posture/Palpation/Skin Start: 04/23/20 17:37 Freq: Status: Active Protocol: Document 04/29/20 12:47 LRN (Rec: 04/29/20 14:04 LRN [id number]) Palpation Assessment Location L knee Palpation Location Around L knee joint Palpation Findings Edema,Soft Tissue Tightness, Tenderness Palpation Details Increased temperature PT-OP-K Range of Motion Start: 04/23/20 17:37 Freq: Status: Active Protocol: Document 05/28/20 10:35 LRN (Rec: 05/28/20 11:18 LRN [id number]) Knee Goniometric Range of Motion Knee Supine L knee AROM Knee ROM WFL No Patient Position Supine Flexion Active (degrees) 90 Flexion Passive (degrees) 94 Sitting L knee AROM Knee ROM WFL No Patient Position Sitting Flexion Active (degrees) 80 Flexion Passive (degrees) 85 Extension Active (degrees) 4 PT-OP-M Strength Start: 04/23/20 17:37 Freq: Status: Active Protocol: Document 04/29/20 12:47 LRN (Rec: 04/29/20 14:04 LRN [id number]) Knee Strength Knee Manual Muscle Testing Right Flexion (S2) 5 Normal Extension (L3) 5 Normal Left Flexion (S2) 3+ Fair+ Extension (L3) 3+ Fair+ PT-OP-Q Treatments Start: 04/23/20 17:37 Freq: Status: Active Protocol: Document 05/28/20 10:35 LRN (Rec: 05/28/20 11:18 LRN [id number]) Cardio Equipment Bicycle (Upright) Duration (Minutes) 10 Resistance 0 Seat Position 3 Other 78 deg's knee flex Therapeutic Exercises Supine Exercises Heel Slides Supine Exercise Name Heel slides Side left Reps/Minutes 5' Prone Exercises Knee hang into ext Prone Exercise Name Knee ext stretch Side left Reps/Minutes 2' Knee flex Prone Exercise Name Passive & assisted knee flex Side left Reps/Minutes 13' Comments Training of self stretch Sitting Exercises Passive knee flex Sitting Exercise Name Fwd scooting in sitting Side right Reps/Minutes 10' Comments R knee passive flex is 64 deg' s Heels slides (CKC) Sitting Exercise Name Heels slides (CKC) Side left Comments Pt moves very slow Manual Therapy Treatment Soft Tissue Mobilization L knee scar Body Location Anterior L knee & scar Mobilization Type Myofascial Release,Sustained Pressure Intensity/Depth Moderate Body Position Sitting PT-OP-R Modalities Start: 04/23/20 17:37 Freq: Status: Active Protocol: Document 05/28/20 10:35 LRN (Rec: 05/28/20 11:18 LRN [id number]) Hot Pack/Cold Pack Treatment Cold Pack Location L Knee, legs on bolster Patient Position Hooklying Treatment Duration (minutes) 10 Patient Tolerance Good Comments Ice pack under knee. PT-OP-T Assessment and Plan Start: 04/23/20 17:37 Freq: Status: Active Protocol: Document 05/28/20 10:35 LRN (Rec: 05/28/20 11:18 LRN [id number]) Physical Therapy Assessment Goals Five Impairment L knee pain (5-7/10) Short Term Goal (STG) Dec pain at rest to 4-5/10 STG Duration 06/03/20 Care Home Goal (LTG) Decr pain at rest to 0-1/10 and with walking activity to 2 -3/10. LTG Duration 07/28/20 Four Impairment Decreased L knee AROM (10-52 deg's) Short Term Goal (STG) Increase L knee AROM 0-105 deg 's. (AROM before surgery: 5- 100 deg's). (05/24/20: L knee (sup) PROM: flex is 85 deg's @ end of therapy) STG Duration 06/03/20 (05/24/20: Progressing) Cane Pusher Goal (LTG) Increase L knee AROM 0-125 deg 's. LTG Duration 07/28/20 Three Impairment Pt unable to return to her prior pool exercise program, independently Short Term Goal (STG) Pt scar will be healed with good scar mobility and L knee AROM at least 5-95 deg's (05/28/20: Poor scar mobility. L knee AROM in sitting is 4- 85 deg's) STG Duration 05/27/20 (05/28/20: Progressing) Care Home Goal (LTG) Pt able to get into the local pool and do her prior ex program with modifications as needed. LTG Duration 06/24/20 Two Impairment Antalgic gait using a FWW for safety Short Term Goal (STG) Pt will be able to walk with a normal gait pattern without a walker. STG Duration 05/20/20 (05/17/20: MET GOAL) Cane Pusher Goal (LTG) Pt will be able to walk a long distance of 6 blks or 2-3 miles with mild to no difficulty. LTG Duration 07/28/20 One Impairment Lacks appropriate self care HEP Cane Pusher Goal (LTG) Pt will be independent in a self care HEP for continued L knee/hip exercises. HEP TO DATE: INSTRUCTIONS GIVEN: *Do's/Don 'ts of lymph massage. *LE self lymph massage. AROM: *Bilateral BKFO, * Sitting knee ext, *Supine Ankle pumps, and *written I/S for knee flex stretch f/b 10 active stretches. LTG Duration 07/28/20 (05/10/20: Progressing) Progress Towards Goals Progress Comments Supine: L knee AAROM flexion improved from 85 to 94 deg's ( AROM is 90 deg's). Sitting: L knee AROM flexion improved from 72 to 80 degs. Extension improved from lacking 7 to lacking 4 deg's. Assessment Summary Assessment Improved tolerance to therapy with pt showing increased awareness of max tolerance to L knee stretches. Pt shows improved L knee active flex after stretching. Physical Therapy Plan Frequency and Duration Frequency of Treatment 3x/Week Plan of Care Start Date 05/24/20 Plan of Care End Date 07/28/20 Next Visit Focus/Plan Next Note Type Treatment Note Next Visit Plan L TKA rehabilitation. Review lymph exercise program if needed. STM/Scar mob to start or immediately after bike with light>moderate flex stretch applied. Increase self ROM ex on Ex bike or Biodex. STM and scar mob. Cryotherapy/Cryocuff and positioning to reduce edema and improve ROM (as tolerated) . Curb training & HEP progression when appropriate.
[2020-05-31 13:31] VITALS: BP 109/73; BP 118/70; BP 132/80; BP 138/78; PULSE 73; PULSE 77; PULSE 79; PULSE 84; O2SAT 84; O2SAT 99
--- NOTE | 2020-05-31 17:05 | PT.OTN ---
Current Diagnoses Unilateral primary osteoarthritis, left knee (05/31/20) Effusion, right knee (05/31/20) Pain in right knee (05/31/20) Muscle weakness (generalized) (05/31/20) Other abnormalities of gait and mobility (05/31/20) Physical Therapy Treatment Note PT-OP-A Visit Information Start: 04/23/20 17:37 Freq: Status: Active Protocol: Document 05/31/20 13:31 LRN (Rec: 05/31/20 17:01 LRN [id number]) Out-Patient Physical Therapy Visit Information Visit Information Visit Type Treatment Note Visit Note 2 after PN Visit Start Time 13:31 Visit Stop Time 14:35 Total Visit Minutes 64 Visit Number 10 Evaluation Information Evaluation Date 04/29/20 Precautions Precautions Arthritis, Back & Neck pain since surgery. PT-OP-B Current Condition Start: 04/23/20 17:37 Freq: Status: Active Protocol: Document 04/29/20 12:47 LRN (Rec: 04/29/20 14:04 LRN [id number]) Current Condition History of Current Condition Onset Date 04/22/20 Current Complaints Decreased R knee mobility, must lift leg and walks with FWW. Dec sleep History of Current Condition Elective Day surgery @ [facility] for L TKA. Since home has been doing a home exercise program. She has been doing them 1-2x/day. DA staying with her until 2 days ago and she is expecting another DA to come in May. Future Testing and Treatments Planned Next appt is with Dr. Nava's assistance 05/07/20 (9:45a), appt with Dr Nava 06/04/20. Developmental History Developmental History R Anterior cruciate and MCL surgery after ski fall (1976) followed by surgery to repair and was in a full leg cast for 6 weeks. Pt reports arthritis set and has had injections in the R knee since . Treatment Goals Patient/Caregiver Goals Pt goal is to walk long distance (6 blks or 2-3 miles) . Walk normal without walker. Golf, water activities. 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 Baseline Function- Other Able to sleeps mostly through the night. Current Functional Impairments (Reported) Functional Limitations- ADL's Decreased gait ability, using FWW and must lift leg to walk Aches. Functional Limitations- Mobility/Gait Ambs with FWW. Walks around the house Functional Limitations- Other Difficulty sleeping, sleeps 1 hour at time. Personal Factors Other Personal Factors That May Effect Lives alone, will have help Therapy/Recovery from daughter coming in May. PT-OP-C Subjective Start: 04/23/20 17:37 Freq: Status: Active Protocol: Document 05/31/20 13:31 LRN (Rec: 05/31/20 17:01 LRN [id number]) OP-PT Subjective Patient Comments Patient Comments Pt reports her daughter leaves tomorrow and is questioning whether she should do a knee manipulation. The pt states she is feeling good and has eaten today. Pt complained of lightheadedness on the ex bike and felt better after having a cup of water. Pt c/o legs shaking when lying supine for cryotherapy to the knee. [place] better after cryotherapy with warm blanket covering. States her normal BP is very low, in the 100's. PT-OP-G Mobility & Gait Start: 04/23/20 17:37 Freq: Status: Active Protocol: Document 04/29/20 12:47 LRN (Rec: 04/29/20 14:04 LRN [id number]) OP Mobility Evaluation Bed Mobility Supine to and from Sit Independent OP Gait Assessment Gait Gait Assistance Required: Independent Able to Maintain Weight Bearing Status Yes During Gait Assistive Devices Assistive Device Standard Walker Orthotic/Prosthetic Devices or Brace: No Gait Deviations General Gait Pattern Antalgic,Decreased Stride Length,Flexed Trunk Stair Climbing Evaluation Comments Stair Climbing Comments Pt has no stairs at home. PT-OP-H Neuro Start: 04/23/20 17:37 Freq: Status: Active Protocol: Document 05/31/20 13:31 LRN (Rec: 05/31/20 17:01 LRN [id number]) Vital Signs Pulse Immediately upon sitting from supine Pulse at Rest (bpm) 84 Pulse Assessment Method Pulse Ox/Monitor During cryotherapy to L knee Pulse at Rest (bpm) 73 Pulse Assessment Method Pulse Ox/Monitor After ex Pulse at Rest (bpm) 84 Pulse With Activity (bpm) 79 Pulse Assessment Method Pulse Ox/Monitor During ex/light headed Pulse at Rest (bpm) 77 Pulse Assessment Method Pulse Ox/Monitor Blood Pressure Immediately upon sitting from supine Blood Pressure (90/60-120/80 mmHg) 109/73 Blood Pressure Source Automatic Cuff,Manual Cuff, Left Upper Extremity Diuring Cryotherapy of L knee Blood Pressure (90/60-120/80 mmHg) 138/78 H Blood Pressure Source Automatic Cuff,Manual Cuff, Left Upper Extremity After ex Blood Pressure (90/60-120/80 mmHg) 132/80 H Blood Pressure Source Manual Cuff,Left Upper Extremity On recovery of lightheadedness Blood Pressure (90/60-120/80 mmHg) 118/70 Blood Pressure Source Manual Cuff,Left Upper Extremity Oxygen Pulse Oximetry at Rest (%) (95-100 %) 84 L Pulse Oximetry with Activity (%) (95-100 99 %) Oxygen Delivery Method Simple Mask Comments Vital Signs Comments Pt SpO2 varied from 100% to 84 % to 90%. Vitals taken after ending of therapy by PT Aide with manual cuff and automatic cuff with reported same results. PT-OP-J Posture/Palpation/Skin Start: 04/23/20 17:37 Freq: Status: Active Protocol: Document 04/29/20 12:47 LRN (Rec: 04/29/20 14:04 LRN [id number]) Palpation Assessment Location L knee Palpation Location Around L knee joint Palpation Findings Edema,Soft Tissue Tightness, Tenderness Palpation Details Increased temperature PT-OP-K Range of Motion Start: 04/23/20 17:37 Freq: Status: Active Protocol: Document 05/31/20 13:31 LRN (Rec: 05/31/20 17:01 LRN [id number]) Knee Goniometric Range of Motion Knee Supine L knee AROM Knee ROM WFL No Patient Position Supine Flexion Active (degrees) 87 Flexion Passive (degrees) 95 Sitting L knee AROM Knee ROM WFL No Patient Position Sitting Flexion Active (degrees) 82 Flexion Passive (degrees) 84 PT-OP-M Strength Start: 04/23/20 17:37 Freq: Status: Active Protocol: Document 04/29/20 12:47 LRN (Rec: 04/29/20 14:04 LRN [id number]) Knee Strength Knee Manual Muscle Testing Right Flexion (S2) 5 Normal Extension (L3) 5 Normal Left Flexion (S2) 3+ Fair+ Extension (L3) 3+ Fair+ PT-OP-Q Treatments Start: 04/23/20 17:37 Freq: Status: Active Protocol: Document 05/31/20 13:31 LRN (Rec: 05/31/20 17:01 LRN [id number]) Cardio Equipment Bicycle (Upright) Duration (Minutes) 13 Resistance 0 Seat Position 3 Other 84 deg's knee flex, Pt needed H2O towards end of ex Therapeutic Exercises Prone Exercises Knee hang into ext Prone Exercise Name Knee ext stretch Side left Reps/Minutes 2' Knee flex Prone Exercise Name Passive & assisted knee flex Side left Reps/Minutes 13' Comments Training of self stretch Sitting Exercises Passive knee flex Sitting Exercise Name Fwd scooting in sitting Side right Reps/Minutes 10' Heels slides (CKC) Sitting Exercise Name Heels slides Side left Comments Assisted knee flex LAQ Sitting Exercise Name Knee ext Side left Reps/Minutes 2x Comments ROM taken Manual Therapy Treatment Soft Tissue Mobilization L knee scar Body Location Anterior L knee & scar Mobilization Type Myofascial Release,Sustained Pressure Intensity/Depth Moderate Body Position Sitting Comments During knee flexion stretch PT-OP-R Modalities Start: 04/23/20 17:37 Freq: Status: Active Protocol: Document 05/31/20 13:31 LRN (Rec: 05/31/20 17:01 LRN [id number]) Hot Pack/Cold Pack Treatment Cold Pack Location L Knee, legs on bolster Patient Position Hooklying Treatment Duration (minutes) 10 Patient Tolerance Good Comments Pt post exercise tolerance was fair. Her SpO2 was good and HR variable. BP was elevated post exercise. PT-OP-T Assessment and Plan Start: 04/23/20 17:37 Freq: Status: Active Protocol: Document 05/31/20 13:31 LRN (Rec: 05/31/20 17:01 N [id number]) Physical Therapy Assessment Goals Five Impairment L knee pain (5-7/10) Short Term Goal (STG) Dec pain at rest to 4-5/10 STG Duration 06/03/20 Nursing Home Goal (LTG) Decr pain at rest to 0-1/10 and with walking activity to 2 -3/10. LTG Duration 07/28/20 Four Impairment Decreased L knee AROM (10-52 deg's) Short Term Goal (STG) Increase L knee AROM 0-105 deg 's. (AROM before surgery: 5- 100 deg's). (05/24/20: L knee (sup) PROM: flex is 85 deg's @ end of therapy) STG Duration 06/03/20 (05/24/20: Progressing) Vice President Of Academic Affairs Goal (LTG) Increase L knee AROM 0-125 deg 's. LTG Duration 07/28/20 Three Impairment Pt unable to return to her prior pool exercise program, independently Short Term Goal (STG) Pt scar will be healed with good scar mobility and L knee AROM at least 5-95 deg's (05/31/20: Fair scar mobility. L knee AROM in sitting is 4- 85 deg's) STG Duration 05/27/20 (05/31/20: Progressing) Vice President Of Academic Affairs Goal (LTG) Pt able to get into the local pool and do her prior ex program with modifications as needed. LTG Duration 06/24/20 Two Impairment Antalgic gait using a FWW for safety Short Term Goal (STG) Pt will be able to walk with a normal gait pattern without a walker. STG Duration 05/20/20 (05/17/20: MET GOAL) Vice President Of Academic Affairs Goal (LTG) Pt will be able to walk a long distance of 6 blks or 2-3 miles with mild to no difficulty. LTG Duration 07/28/20 One Impairment Lacks appropriate self care HEP Vice President Of Academic Affairs Goal (LTG) Pt will be independent in a self care HEP for continued L knee/hip exercises. HEP TO DATE: INSTRUCTIONS GIVEN: *Do's/Don 'ts of lymph massage. *LE self lymph massage. AROM: *Bilateral BKFO, * Sitting knee ext, *Supine Ankle pumps, and *written I/S for knee flex stretch f/b 10 active stretches. LTG Duration 07/28/20 (05/10/20: Progressing) Progress Towards Goals Progress Comments Supine: L knee AAROM flexion improved from 87 deg's to 95 deg's, overall from last session 94 deg's to 95 deg's. Assessment Summary Assessment Pt is pushing herself in therapy, showing at end, poor response, with increased blood pressure readings from her norm (low 100's systolic). Pt is being stoic and is going into a sympathetic response, almost shock-like, but with high BP readings, requiring rest and warm blanket to end. Pt is improving in L knee ROM , but only after aggressive PROM stretching. Pt may be a better candidate for manipulation because of her pain response to aggressive stretching. Physical Therapy Plan Frequency and Duration Frequency of Treatment 3x/Week Plan of Care Start Date 05/24/20 Plan of Care End Date 07/28/20 Next Visit Focus/Plan Next Note Type Treatment Note Next Visit Plan Take BP/HR reading. L TKA rehabilitation. Review lymph exercise program if needed. Discuss pt response to ex regarding increased BP/HR and recommend pt check with primary care provider. STM/ Scar mob to start or immediately after bike with light>moderate flex stretch applied. Increase self ROM ex on Ex bike or Biodex. STM and scar mob. Cryotherapy/ Cryocuff and positioning to reduce edema and improve ROM ( as tolerated). Curb training & HEP progression when appropriate.
[2020-06-04 14:18] VITALS: BP 102/70; PULSE 72
--- NOTE | 2020-06-04 16:00 | PT.OTN ---
Current Diagnoses Unilateral primary osteoarthritis, left knee (06/04/20) Effusion, right knee (06/04/20) Pain in right knee (06/04/20) Muscle weakness (generalized) (06/04/20) Other abnormalities of gait and mobility (06/04/20) Physical Therapy Treatment Note PT-OP-A Visit Information Start: 04/23/20 17:37 Freq: Status: Active Protocol: Document 06/04/20 14:18 LRN (Rec: 06/04/20 15:08 LRN [id number]) Out-Patient Physical Therapy Visit Information Visit Information Visit Type Treatment Note Visit Note 3 after PN Visit Start Time 14:18 Visit Stop Time 15:08 Total Visit Minutes 50 Visit Number 11 Evaluation Information Evaluation Date 04/29/20 Precautions Precautions Arthritis, Back & Neck pain since surgery. PT-OP-B Current Condition Start: 04/23/20 17:37 Freq: Status: Active Protocol: Document 04/29/20 12:47 LRN (Rec: 04/29/20 14:04 LRN [id number]) Current Condition History of Current Condition Onset Date 04/22/20 Current Complaints Decreased R knee mobility, must lift leg and walks with FWW. Dec sleep History of Current Condition Elective Day surgery @ [facility] for L TKA. Since home has been doing a home exercise program. She has been doing them 1-2x/day. DA staying with her until 2 days ago and she is expecting another DA to come in May. Future Testing and Treatments Planned Next appt is with Dr. Nava's assistance 05/07/20 (9:45a), appt with Dr Nava 06/04/20. Developmental History Developmental History R Anterior cruciate and MCL surgery after ski fall (1976) followed by surgery to repair and was in a full leg cast for 6 weeks. Pt reports arthritis set and has had injections in the R knee since . Treatment Goals Patient/Caregiver Goals Pt goal is to walk long distance (6 blks or 2-3 miles) . Walk normal without walker. Golf, water activities. Prior Functional Status Baseline Function- ADL's Independent Baseline Function- Mobility Independent Baseline Function- Gait Walked for ex without assistive device, pain bog cutter R knee after 3 blks Baseline Function- Recreation/Hobbies Walks [employer]. Baseline Function- Other Able to sleeps mostly through the night. Current Functional Impairments (Reported) Functional Limitations- ADL's Decreased gait ability, using FWW and must lift leg to walk Aches. Functional Limitations- Mobility/Gait Ambs with FWW. Walks around the house Functional Limitations- Other Difficulty sleeping, sleeps 1 hour at time. Personal Factors Other Personal Factors That May Effect Lives alone, will have help Therapy/Recovery from daughter coming in May. PT-OP-C Subjective Start: 04/23/20 17:37 Freq: Status: Active Protocol: Document 06/04/20 14:18 LRN (Rec: 06/04/20 15:08 LRN [id number]) OP-PT Subjective Patient Comments Patient Comments States he is giving her 2 weeks to decide on a manipulation. PT-OP-G Mobility & Gait Start: 04/23/20 17:37 Freq: Status: Active Protocol: Document 04/29/20 12:47 LRN (Rec: 04/29/20 14:04 LRN [id number]) OP Mobility Evaluation Bed Mobility Supine to and from Sit Independent OP Gait Assessment Gait Gait Assistance Required: Independent Able to Maintain Weight Bearing Status Yes During Gait Assistive Devices Assistive Device Standard Walker Orthotic/Prosthetic Devices or Brace: No Gait Deviations General Gait Pattern Antalgic,Decreased Stride Length,Flexed Trunk Stair Climbing Evaluation Comments Stair Climbing Comments Pt has no stairs at home. PT-OP-H Neuro Start: 04/23/20 17:37 Freq: Status: Active Protocol: Document 06/04/20 14:18 LRN (Rec: 06/04/20 15:08 LRN [id number]) Vital Signs Pulse Resting Pulse at Rest (bpm) 72 Pulse Assessment Method Palpation Blood Pressure Resting Blood Pressure (90/60-120/80 mmHg) 102/70 Blood Pressure Source Manual Cuff,Left Upper Extremity PT-OP-J Posture/Palpation/Skin Start: 04/23/20 17:37 Freq: Status: Active Protocol: Document 04/29/20 12:47 LRN (Rec: 04/29/20 14:04 LRN [id number]) Palpation Assessment Location L knee Palpation Location Around L knee joint Palpation Findings Edema,Soft Tissue Tightness, Tenderness Palpation Details Increased temperature PT-OP-K Range of Motion Start: 04/23/20 17:37 Freq: Status: Active Protocol: Document 06/04/20 14:18 LRN (Rec: 06/04/20 15:08 LRN [id number]) Knee Goniometric Range of Motion Knee Supine L knee AROM Knee ROM WFL No Patient Position Supine Flexion Active (degrees) 97 Flexion Passive (degrees) 97 Comments Supine with L foot on wall, active flexion is 93 deg's Sitting L knee AROM Knee ROM WFL No Patient Position Sitting Flexion Active (degrees) 87 Flexion Passive (degrees) 90 PT-OP-M Strength Start: 04/23/20 17:37 Freq: Status: Active Protocol: Document 04/29/20 12:47 LRN (Rec: 04/29/20 14:04 LRN [id number]) Knee Strength Knee Manual Muscle Testing Right Flexion (S2) 5 Normal Extension (L3) 5 Normal Left Flexion (S2) 3+ Fair+ Extension (L3) 3+ Fair+ PT-OP-Q Treatments Start: 04/23/20 17:37 Freq: Status: Active Protocol: Document 06/04/20 14:18 LRN (Rec: 06/04/20 15:08 LRN [id number]) Cardio Equipment Bicycle (Upright) Duration (Minutes) 10 Resistance 0 Seat Position 3 Other 87 deg's knee flex Therapeutic Exercises Supine Exercises Heel Slides Supine Exercise Name Heel slides with foot on wall and on TBall Side left Equipment Used Wall & TBall Reps/Minutes 14' Comments 93 deg's flexion Prone Exercises Knee flex Prone Exercise Name Passive & assisted knee flex Side left Reps/Minutes 10' Comments Training of self stretch Sitting Exercises Passive knee flex Sitting Exercise Name Fwd scooting in sitting Side right Reps/Minutes 3' Manual Therapy Treatment Soft Tissue Mobilization L knee scar Body Location Anterior L knee & scar Mobilization Type Myofascial Release,Sustained Pressure Intensity/Depth Moderate Body Position Sitting Comments During knee flexion stretch PT-OP-R Modalities Start: 04/23/20 17:37 Freq: Status: Active Protocol: Document 06/04/20 14:18 LRN (Rec: 06/04/20 15:08 LRN [id number]) Hot Pack/Cold Pack Treatment Cold Pack Location L Knee, legs on bolster Patient Position Hooklying Treatment Duration (minutes) 10 Patient Tolerance Good Comments Pt post exercise tolerance was normal. Pt showed no symptoms of distress. PT-OP-T Assessment and Plan Start: 04/23/20 17:37 Freq: Status: Active Protocol: Document 06/04/20 14:18 LRN (Rec: 06/04/20 15:08 LRN [id number]) Physical Therapy Assessment Goals Five Impairment L knee pain (5-7/10) Short Term Goal (STG) Dec pain at rest to 4-5/10 STG Duration 06/03/20 Neonatal Intensive Care Unit Nurse Goal (LTG) Decr pain at rest to 0-1/10 and with walking activity to 2 -3/10. LTG Duration 07/28/20 Four Impairment Decreased L knee AROM (10-52 deg's) Short Term Goal (STG) Increase L knee AROM 0-105 deg 's. (AROM before surgery: 5- 100 deg's). (06/04/20: L knee (sup) PROM: flex is 90 deg's @ end of therapy) STG Duration 06/03/20 (06/04/20: Progressing) Senior Care Goal (LTG) Increase L knee AROM 0-125 deg 's. LTG Duration 07/28/20 Three Impairment Pt unable to return to her prior pool exercise program, independently Short Term Goal (STG) Pt scar will be healed with good scar mobility and L knee AROM at least 5-95 deg's (05/31/20: Fair scar mobility. L knee AROM in sitting is 4- 85 deg's) STG Duration 05/27/20 (05/31/20: Progressing) Neonatal Intensive Care Unit Nurse Goal (LTG) Pt able to get into the local pool and do her prior ex program with modifications as needed. LTG Duration 06/24/20 Two Impairment Antalgic gait using a FWW for safety Short Term Goal (STG) Pt will be able to walk with a normal gait pattern without a walker. STG Duration 05/20/20 (05/17/20: MET GOAL) Neonatal Intensive Care Unit Nurse Goal (LTG) Pt will be able to walk a long distance of 6 blks or 2-3 miles with mild to no difficulty. LTG Duration 07/28/20 One Impairment Lacks appropriate self care HEP Neonatal Intensive Care Unit Nurse Goal (LTG) Pt will be independent in a self care HEP for continued L knee/hip exercises. HEP TO DATE: INSTRUCTIONS GIVEN: *Do's/Don 'ts of lymph massage. *LE self lymph massage. AROM: *Bilateral BKFO, * Sitting knee ext, *Supine Ankle pumps, and *written I/S for knee flex stretch f/b 10 active stretches. LTG Duration 07/28/20 (05/10/20: Progressing) Progress Towards Goals Progress Comments Supine: L knee PROM flexion is 90 deg's, less than previous of 95 deg's, but pt did not get lightheaded or dizzy at end of therapy. Assessment Summary Assessment Pt pushed self to appropriate limit today although PROM measurement was not improved. Improved response to therapy. Physical Therapy Plan Frequency and Duration Frequency of Treatment 3x/Week Plan of Care Start Date 05/24/20 Plan of Care End Date 07/28/20 Next Visit Focus/Plan Next Note Type Treatment Note Next Visit Plan Take BP/HR reading. L TKA rehabilitation. Review lymph exercise program if needed. Discuss pt response to ex regarding increased BP/HR and recommend pt check with primary care provider. STM/ Scar mob to start or immediately after bike with light>moderate flex stretch applied. Increase self ROM ex on Ex bike or Biodex. STM and scar mob. Cryotherapy/ Cryocuff and positioning to reduce edema and improve ROM ( as tolerated). Curb training & HEP progression when appropriate.
--- NOTE | 2020-06-07 16:02 | PT.OTN ---
Current Diagnoses Unilateral primary osteoarthritis, left knee (06/07/20) Effusion, right knee (06/07/20) Pain in right knee (06/07/20) Muscle weakness (generalized) (06/07/20) Other abnormalities of gait and mobility (06/07/20) Physical Therapy Treatment Note PT-OP-A Visit Information Start: 04/23/20 17:37 Freq: Status: Active Protocol: Document 06/07/20 13:30 LRN (Rec: 06/07/20 14:21 LRN [id number]) Out-Patient Physical Therapy Visit Information Visit Information Visit Type Treatment Note Visit Start Time 13:30 Visit Stop Time 14:25 Total Visit Minutes 55 Visit Number 12 Evaluation Information Evaluation Date 04/29/20 Precautions Precautions Arthritis, Back & Neck pain since surgery. PT-OP-B Current Condition Start: 04/23/20 17:37 Freq: Status: Active Protocol: Document 04/29/20 12:47 LRN (Rec: 04/29/20 14:04 LRN [id number]) Current Condition History of Current Condition Onset Date 04/22/20 Current Complaints Decreased R knee mobility, must lift leg and walks with FWW. Dec sleep History of Current Condition Elective Day surgery @ [facility] for L TKA. Since home has been doing a home exercise program. She has been doing them 1-2x/day. DA staying with her until 2 days ago and she is expecting another DA to come in May. Future Testing and Treatments Planned Next appt is with Dr. Nava's assistance 05/07/20 (9:45a), appt with Dr Nava 06/04/20. Developmental History Developmental History R Anterior cruciate and MCL surgery after ski fall (1976) followed by surgery to repair and was in a full leg cast for 6 weeks. Pt reports arthritis set and has had injections in the R knee since . Treatment Goals Patient/Caregiver Goals Pt goal is to walk long distance (6 blks or 2-3 miles) . Walk normal without walker. Golf, water activities. Prior Functional Status Baseline Function- ADL's Independent Baseline Function- Mobility Independent Baseline Function- Gait Walked for ex without assistive device, pain channel lip wetter R knee after 3 blks Baseline Function- Recreation/Hobbies Walks [employer]. Baseline Function- Other Able to sleeps mostly through the night. Current Functional Impairments (Reported) Functional Limitations- ADL's Decreased gait ability, using FWW and must lift leg to walk Aches. Functional Limitations- Mobility/Gait Ambs with FWW. Walks around the house Functional Limitations- Other Difficulty sleeping, sleeps 1 hour at time. Personal Factors Other Personal Factors That May Effect Lives alone, will have help Therapy/Recovery from daughter coming in May. PT-OP-C Subjective Start: 04/23/20 17:37 Freq: Status: Active Protocol: Document 06/07/20 13:30 LRN (Rec: 06/07/20 14:21 LRN [id number]) OP-PT Subjective Patient Comments Patient Comments States she feels better, getting in/out of car is easier. Has questions regarding icing. PT-OP-G Mobility & Gait Start: 04/23/20 17:37 Freq: Status: Active Protocol: Document 04/29/20 12:47 LRN (Rec: 04/29/20 14:04 LRN [id number]) OP Mobility Evaluation Bed Mobility Supine to and from Sit Independent OP Gait Assessment Gait Gait Assistance Required: Independent Able to Maintain Weight Bearing Status Yes During Gait Assistive Devices Assistive Device Standard Walker Orthotic/Prosthetic Devices or Brace: No Gait Deviations General Gait Pattern Antalgic,Decreased Stride Length,Flexed Trunk Stair Climbing Evaluation Comments Stair Climbing Comments Pt has no stairs at home. PT-OP-H Neuro Start: 04/23/20 17:37 Freq: Status: Active Protocol: Document 06/04/20 14:18 LRN (Rec: 06/04/20 15:08 LRN [id number]) Vital Signs Pulse Resting Pulse at Rest (bpm) 72 Pulse Assessment Method Palpation Blood Pressure Resting Blood Pressure (90/60-120/80 mmHg) 102/70 Blood Pressure Source Manual Cuff,Left Upper Extremity PT-OP-J Posture/Palpation/Skin Start: 04/23/20 17:37 Freq: Status: Active Protocol: Document 04/29/20 12:47 LRN (Rec: 04/29/20 14:04 LRN [id number]) Palpation Assessment Location L knee Palpation Location Around L knee joint Palpation Findings Edema,Soft Tissue Tightness, Tenderness Palpation Details Increased temperature PT-OP-K Range of Motion Start: 04/23/20 17:37 Freq: Status: Active Protocol: Document 06/07/20 13:30 LRN (Rec: 06/07/20 14:21 LRN [id number]) Knee Goniometric Range of Motion Knee Supine R knee AROM Knee ROM WFL Yes Patient Position Supine Flexion Active (degrees) 131 Flexion Passive (degrees) 131 Supine L knee AROM Knee ROM WFL No Patient Position Supine Flexion Active (degrees) 100 Flexion Passive (degrees) 102 Comments knee flexion is 101 actively after stretching. PT-OP-M Strength Start: 04/23/20 17:37 Freq: Status: Active Protocol: Document 04/29/20 12:47 LRN (Rec: 04/29/20 14:04 LRN [id number]) Knee Strength Knee Manual Muscle Testing Right Flexion (S2) 5 Normal Extension (L3) 5 Normal Left Flexion (S2) 3+ Fair+ Extension (L3) 3+ Fair+ PT-OP-Q Treatments Start: 04/23/20 17:37 Freq: Status: Active Protocol: Document 06/07/20 13:30 LRN (Rec: 06/07/20 14:21 LRN [id number]) Cardio Equipment Bicycle (Upright) Duration (Minutes) 10 Resistance 0 Seat Position 3 Other 87 deg's knee flex Therapeutic Exercises Supine Exercises Heel Slides Supine Exercise Name Heel slides with foot on plinth and on TBall Side left Equipment Used Strap & TBall Reps/Minutes 15' Comments Flex: 100 deg's active, 102 deg's passive Prone Exercises Knee flex Prone Exercise Name Passive & assisted knee flex Side left Reps/Minutes 10' Comments Training of self stretch Self-Care/Home Management Treatment Education Patient Education Home Exercise Program Other Education Discussed use of cryotherapy after exercise. Discussed possible manipulation. Recommended that pt be referred to therapy immediately after her manipulation and to do HEP as currently she is doing. Discussed pt having help post manipulation for ROM ex's and knee care. Activities Self-Care/Home Management Activities Issued & reviewed recommended water/pool exercises to improve L knee ROM post manipulation at pt request. PT-OP-R Modalities Start: 04/23/20 17:37 Freq: Status: Active Protocol: Document 06/07/20 13:30 LRN (Rec: 06/07/20 15:48 LRN [id number]) Hot Pack/Cold Pack Treatment Cold Pack Location L Knee, legs on bolster in flex Patient Position Hooklying Treatment Duration (minutes) 10 Patient Tolerance Good Comments Pt post exercise tolerance was normal. PT-OP-T Assessment and Plan Start: 04/23/20 17:37 Freq: Status: Active Protocol: Document 06/07/20 13:30 LRN (Rec: 06/07/20 14:21 LRN [id number]) Physical Therapy Assessment Goals Five Impairment L knee pain (5-7/10) Short Term Goal (STG) Dec pain at rest to 4-5/10 STG Duration 06/03/20 Half-Way Goal (LTG) Decr pain at rest to 0-1/10 and with walking activity to 2 -3/10. LTG Duration 07/28/20 Four Impairment Decreased L knee AROM (10-52 deg's) Short Term Goal (STG) Increase L knee AROM 0-105 deg 's. (AROM before surgery: 5- 100 deg's). (06/07/20: L knee (sup) PROM: flex is 102 deg's @ end of therapy) STG Duration 06/03/20 (06/07/20: Progressing ) Scenic Arts Supervisor Goal (LTG) Increase L knee AROM 0-125 deg 's. LTG Duration 07/28/20 Three Impairment Pt unable to return to her prior pool exercise program, independently Short Term Goal (STG) Pt scar will be healed with good scar mobility and L knee AROM at least 5-95 deg's (05/31/20: Fair scar mobility. L knee AROM in sitting is 4- 85 deg's) STG Duration 05/27/20 (05/31/20: Progressing) Scenic [employer] Supervisor Goal (LTG) Pt able to get into the local pool and do her prior ex program with modifications as needed. LTG Duration 06/24/20 Two Impairment Antalgic gait using a FWW for safety Short Term Goal (STG) Pt will be able to walk with a normal gait pattern without a walker. STG Duration 05/20/20 (05/17/20: MET GOAL) Scenic Arts Supervisor Goal (LTG) Pt will be able to walk a long distance of 6 blks or 2-3 miles with mild to no difficulty. LTG Duration 07/28/20 One Impairment Lacks appropriate self care HEP Half-Way Goal (LTG) Pt will be independent in a self care HEP for continued L knee/hip exercises. HEP TO DATE: INSTRUCTIONS GIVEN: *Do's/Don 'ts of lymph massage. *LE self lymph massage. AROM: *Bilateral BKFO, * Sitting knee ext, *Supine Ankle pumps, and *written I/S for knee flex stretch f/b 10 active stretches. RECOMMENDED POOL EXERCISES: * Knee flexion exercises. LTG Duration 07/28/20 (06/07/20: Progressing) Progress Towards Goals Progress Comments Supine: L knee PROM flexion improved from 90-95 degs to 102 deg's. L knee AROM improved from 97 to 100 deg's. Assessment Summary Assessment Pt showing improved tolerance to therapy with no sympathetic response after treatment. She shows improved Active & Passive ROM of L knee. Pt is improving but slowly. Physical Therapy Plan Frequency and Duration Frequency of Treatment 3x/Week Plan of Care Start Date 05/24/20 Plan of Care End Date 07/28/20 Next Visit Focus/Plan Next Note Type Treatment Note Next Visit Plan L TKA rehabilitation. Review lymph exercise program if needed. Discuss pt response to ex regarding increased BP/ HR and recommend pt check with primary care provider. L knee ROM immediately after bike with light>moderate flex stretch applied. Increase self ROM ex on Ex bike or Biodex. STM and scar mob. Cryotherapy/Cryocuff and positioning to reduce edema and improve ROM (as tolerated) . Curb training & HEP progression when appropriate.
[2020-06-10 10:32] VITALS: BP 129/90; PULSE 98
--- NOTE | 2020-06-10 17:09 | PT.OTN ---
Current Diagnoses Unilateral primary osteoarthritis, left knee (06/10/20) Effusion, right knee (06/10/20) Pain in right knee (06/10/20) Muscle weakness (generalized) (06/10/20) Other abnormalities of gait and mobility (06/10/20) Physical Therapy Treatment Note PT-OP-A Visit Information Start: 04/23/20 17:37 Freq: Status: Active Protocol: Document 06/10/20 10:32 LRN (Rec: 06/10/20 11:22 LRN [id number]) Out-Patient Physical Therapy Visit Information Visit Information Visit Type Treatment Note Visit Start Time 10:32 Visit Stop Time 11:27 Total Visit Minutes 55 Visit Number 13 Evaluation Information Evaluation Date 04/29/20 Precautions Precautions Arthritis, Back & Neck pain since surgery. PT-OP-B Current Condition Start: 04/23/20 17:37 Freq: Status: Active Protocol: Document 04/29/20 12:47 LRN (Rec: 04/29/20 14:04 LRN [id number]) Current Condition History of Current Condition Onset Date 04/22/20 Current Complaints Decreased R knee mobility, must lift leg and walks with FWW. Dec sleep History of Current Condition Elective Day surgery @ [facility] for L TKA. Since home has been doing a home exercise program. She has been doing them 1-2x/day. DA staying with her until 2 days ago and she is expecting another DA to come in May. Future Testing and Treatments Planned Next appt is with Dr. Nava's assistance 05/07/20 (9:45a), appt with Dr Nava 06/04/20. Developmental History Developmental History R Anterior cruciate and MCL surgery after ski fall (1976) followed by surgery to repair and was in a full leg cast for 6 weeks. Pt reports arthritis set and has had injections in the R knee since . Treatment Goals Patient/Caregiver Goals Pt goal is to walk long distance (6 blks or 2-3 miles) . Walk normal without walker. Golf, water activities. 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 Baseline Function- Other Able to sleeps mostly through the night. Current Functional Impairments (Reported) Functional Limitations- ADL's Decreased gait ability, using FWW and must lift leg to walk Aches. Functional Limitations- Mobility/Gait Ambs with FWW. Walks around the house Functional Limitations- Other Difficulty sleeping, sleeps 1 hour at time. Personal Factors Other Personal Factors That May Effect Lives alone, will have help Therapy/Recovery from daughter coming in May. PT-OP-C Subjective Start: 04/23/20 17:37 Freq: Status: Active Protocol: Document 06/10/20 10:32 LRN (Rec: 06/10/20 11:22 LRN [id number]) OP-PT Subjective Patient Comments Patient Comments States she will probably have manipulation on 06/20/20 and will have daily PT for 2 weeks . PT-OP-G Mobility & Gait Start: 04/23/20 17:37 Freq: Status: Active Protocol: Document 04/29/20 12:47 LRN (Rec: 04/29/20 14:04 LRN [id number]) OP Mobility Evaluation Bed Mobility Supine to and from Sit Independent OP Gait Assessment Gait Gait Assistance Required: Independent Able to Maintain Weight Bearing Status Yes During Gait Assistive Devices Assistive Device Standard Walker Orthotic/Prosthetic Devices or Brace: No Gait Deviations General Gait Pattern Antalgic,Decreased Stride Length,Flexed Trunk Stair Climbing Evaluation Comments Stair Climbing Comments Pt has no stairs at home. PT-OP-H Neuro Start: 04/23/20 17:37 Freq: Status: Active Protocol: Document 06/10/20 10:32 LRN (Rec: 06/10/20 11:22 LRN [id number]) Vital Signs Pulse On bike Pulse With Activity (bpm) 98 Pulse Assessment Method Pulse Ox/Monitor Blood Pressure ON bike Blood Pressure (90/60-120/80 mmHg) 129/90 H Blood Pressure Source Automatic Cuff PT-OP-J Posture/Palpation/Skin Start: 04/23/20 17:37 Freq: Status: Active Protocol: Document 04/29/20 12:47 LRN (Rec: 04/29/20 14:04 LRN [id number]) Palpation Assessment Location L knee Palpation Location Around L knee joint Palpation Findings Edema,Soft Tissue Tightness, Tenderness Palpation Details Increased temperature PT-OP-K Range of Motion Start: 04/23/20 17:37 Freq: Status: Active Protocol: Document 06/10/20 10:32 LRN (Rec: 06/10/20 11:22 LRN [id number]) Knee Goniometric Range of Motion Knee Supine L knee AROM Knee ROM WFL No Patient Position Supine Flexion Active (degrees) 100 Flexion Passive (degrees) 102 Extension Passive (degrees) 0 Sitting L knee AROM Knee ROM WFL No Patient Position Sitting Flexion Active (degrees) 92 Flexion Passive (degrees) 90 PT-OP-M Strength Start: 04/23/20 17:37 Freq: Status: Active Protocol: Document 04/29/20 12:47 LRN (Rec: 04/29/20 14:04 LRN [id number]) Knee Strength Knee Manual Muscle Testing Right Flexion (S2) 5 Normal Extension (L3) 5 Normal Left Flexion (S2) 3+ Fair+ Extension (L3) 3+ Fair+ PT-OP-Q Treatments Start: 04/23/20 17:37 Freq: Status: Active Protocol: Document 06/10/20 10:32 LRN (Rec: 06/10/20 11:22 LRN [id number]) Cardio Equipment Bicycle (Upright) Duration (Minutes) 8 Resistance 0 Seat Position 3 Therapeutic Exercises Supine Exercises Heel Slides Supine Exercise Name Heel slides with foot on plinth and on TBall Side left Equipment Used Strap & TBall Reps/Minutes 3' x 2 different times during therapy Comments Flex: 100 deg's active, 102 deg's passive Prone Exercises Knee flex strengthening Prone Exercise Name Knee flexion Side left Equipment Used 2# Reps/Minutes 3' Knee flex Prone Exercise Name Passive & assisted knee flex Side left Reps/Minutes 18' Sitting Exercises Passive knee flex Sitting Exercise Name Passive knee flex stretch Side right Reps/Minutes 5 Manual Therapy Treatment Soft Tissue Mobilization L knee scar Body Location Anterior L knee & scar Mobilization Type Myofascial Release,Sustained Pressure Intensity/Depth Moderate Body Position Sitting Comments During knee flexion stretch PT-OP-R Modalities Start: 04/23/20 17:37 Freq: Status: Active Protocol: Document 06/10/20 10:32 LRN (Rec: 06/10/20 11:22 LRN [id number]) Hot Pack/Cold Pack Treatment Cold Pack Location L Knee, legs on bolster in flex Patient Position Hooklying Treatment Duration (minutes) 10 Patient Tolerance Good Comments Pt post exercise tolerance was normal. PT-OP-T Assessment and Plan Start: 04/23/20 17:37 Freq: Status: Active Protocol: Document 06/10/20 10:32 LRN (Rec: 06/10/20 11:22 LRN [id number]) Physical Therapy Assessment Rehab Potential Rehabilitation Potential Excellent Evaluation Complexity Number of Personal Factors/Comorbidities 1-2 Number of Body Systems Impaired 4 or More Clinical Presentation at Evaluation Evolving Impairments Impairments Activity Tolerance,Edema, Functional Mobility,Gait,Pain, ROM,Soft Tissue Mobility, Strength Other Impairments Left LBP rated 3/10, Bilateral neck pain rated 3/10 Goals Five Impairment L knee pain (5-7/10) Short Term Goal (STG) Dec pain at rest to 4-5/10 STG Duration 06/03/20 [employer] Principal Solution Specialist Goal (LTG) Decr pain at rest to 0-1/10 and with walking activity to 2 -3/10. LTG Duration 07/28/20 Four Impairment Decreased L knee AROM (10-52 deg's) Short Term Goal (STG) Increase L knee AROM 0-105 deg 's. (AROM before surgery: 5- 100 deg's). (06/07/20: L knee (sup) PROM: flex is 102 deg's @ end of therapy) STG Duration 06/03/20 (06/07/20: Progressing ) [employer] Principal Solution Specialist Goal (LTG) Increase L knee AROM 0-125 deg 's. LTG Duration 07/28/20 Three Impairment Pt unable to return to her prior pool exercise program, independently Short Term Goal (STG) Pt scar will be healed with good scar mobility and L knee AROM at least 5-95 deg's (05/31/20: Fair scar mobility. L knee AROM in sitting is 4- 85 deg's) STG Duration 05/27/20 (05/31/20: Progressing) Usp Goal (LTG) Pt able to get into the local pool and do her prior ex program with modifications as needed. LTG Duration 06/24/20 Two Impairment Antalgic gait using a FWW for safety Short Term Goal (STG) Pt will be able to walk with a normal gait pattern without a walker. STG Duration 05/20/20 (05/17/20: MET GOAL) Usp Goal (LTG) Pt will be able to walk a long distance of 6 blks or 2-3 miles with mild to no difficulty. LTG Duration 07/28/20 One Impairment Lacks appropriate self care HEP [employer] Principal Solution Specialist Goal (LTG) Pt will be independent in a self care HEP for continued L knee/hip exercises. HEP TO DATE: INSTRUCTIONS GIVEN: *Do's/Don 'ts of lymph massage. *LE self lymph massage. AROM: *Bilateral BKFO, * Sitting knee ext, *Supine Ankle pumps, and *written I/S for knee flex stretch f/b 10 active stretches. RECOMMENDED POOL EXERCISES: * Knee flexion exercises. LTG Duration 07/28/20 (06/07/20: Progressing) Progress Towards Goals Progress Towards Goals Slow Progress due to Medical Issues Assessment Summary Assessment No change with supine L knee AROM/PROM. Pt response to therapy is good, no signs of distress, or significant blood pressure changes. No symptoms of lightheadedness with position changes. Physical Therapy Plan Frequency and Duration Frequency of Treatment Daily x 2 wks >3x/wk Plan of Care Start Date 05/24/20 Plan of Care End Date 07/28/20 Therapeutic Interventions Therapeutic Interventions Gait Training,Home Exercise Program,Joint Mobilizations, Manual Therapy,Patient/ Caregiver Education,Self-Care/ Home Management,Soft Tissue Mobilization,Taping, Therapeutic Exercises Modalities Cold Pack/Ice Massage,Hot Packs Other Therapeutic Interventions Independent self care aquatic exercise since incision has fully healed. Next Visit Focus/Plan Next Note Type Progress Note Next Visit Plan L TKA rehabilitation. L knee manipulation 06/20/20 followed by daily PT for 2 weeks per surgeon request, then therapy 2-3x/week as needed. Review lymph exercise program if needed. L knee ROM immediately after bike with flex stretch applied as tolerated. Increase self ROM ex on Ex bike. STM and scar mob as needed. Cryotherapy/ Cryocuff and positioning to reduce edema and improve ROM ( as tolerated). Curb training & HEP progression when appropriate.
--- NOTE | 2020-06-10 17:09 | PT.OPPOC ---
Physical, Occupational & Speech Therapy At Current Diagnoses Unilateral primary osteoarthritis, left knee (06/10/20) Effusion, right knee (06/10/20) Pain in right knee (06/10/20) Muscle weakness (generalized) (06/10/20) Other abnormalities of gait and mobility (06/10/20) Visit Care Team Role Provider Type Latesha Fernandes PA-C Family Provider Non-Staff Primary Care Provider Specialty: Internal Medicine Address: [address] [place] [address], [id number] Email: [email or web address] Josias Nava MD Attending Provider Non-Staff Referring Provider Specialty: Orthopedics Address: [address] [place] [address], [id number] Email: Plan Of Care PT-OP-T Assessment and Plan Start: 04/23/20 17:37 Freq: Status: Active Protocol: Document 06/10/20 10:32 LRN (Rec: 06/10/20 11:22 LRN [id number]) Physical Therapy Assessment Rehab Potential Rehabilitation Potential Excellent Evaluation Complexity Number of Personal Factors/Comorbidities 1-2 Number of Body Systems Impaired 4 or More Clinical Presentation at Evaluation Evolving Impairments Impairments Activity Tolerance,Edema, Functional Mobility,Gait,Pain, ROM,Soft Tissue Mobility, Strength Other Impairments Left LBP rated 3/10, Bilateral neck pain rated 3/10 Goals Five Impairment L knee pain (5-7/10) Short Term Goal (STG) Dec pain at rest to 4-5/10 STG Duration 06/03/20 Paediatric Surgeon Goal (LTG) Decr pain at rest to 0-1/10 and with walking activity to 2 -3/10. LTG Duration 07/28/20 Four Impairment Decreased L knee AROM (10-52 deg's) Short Term Goal (STG) Increase L knee AROM 0-105 deg 's. (AROM before surgery: 5- 100 deg's). (06/07/20: L knee (sup) PROM: flex is 102 deg's @ end of therapy) STG Duration 06/03/20 (06/07/20: Progressing ) Usp Goal (LTG) Increase L knee AROM 0-125 deg 's. LTG Duration 07/28/20 Three Impairment Pt unable to return to her prior pool exercise program, independently Short Term Goal (STG) Pt scar will be healed with good scar mobility and L knee AROM at least 5-95 deg's (05/31/20: Fair scar mobility. L knee AROM in sitting is 4- 85 deg's) STG Duration 05/27/20 (05/31/20: Progressing) Paediatric Surgeon Goal (LTG) Pt able to get into the local pool and do her prior ex program with modifications as needed. LTG Duration 06/24/20 Two Impairment Antalgic gait using a FWW for safety Short Term Goal (STG) Pt will be able to walk with a normal gait pattern without a walker. STG Duration 05/20/20 (05/17/20: MET GOAL) Usp Goal (LTG) Pt will be able to walk a long distance of 6 blks or 2-3 miles with mild to no difficulty. LTG Duration 07/28/20 One Impairment Lacks appropriate self care HEP Usp Goal (LTG) Pt will be independent in a self care HEP for continued L knee/hip exercises. HEP TO DATE: INSTRUCTIONS GIVEN: *Do's/Don 'ts of lymph massage. *LE self lymph massage. AROM: *Bilateral BKFO, * Sitting knee ext, *Supine Ankle pumps, and *written I/S for knee flex stretch f/b 10 active stretches. RECOMMENDED POOL EXERCISES: * Knee flexion exercises. LTG Duration 07/28/20 (06/07/20: Progressing) Progress Towards Goals Progress Towards Goals Slow Progress due to Medical Issues Assessment Summary Assessment No change with supine L knee AROM/PROM. Pt response to therapy is good, no signs of distress, or significant blood pressure changes. No symptoms of lightheadedness with position changes. Physical Therapy Plan Frequency and Duration Frequency of Treatment Daily x 2 wks >3x/wk Plan of Care Start Date 05/24/20 Plan of Care End Date 07/28/20 Therapeutic Interventions Therapeutic Interventions Gait Training,Home Exercise Program,Joint Mobilizations, Manual Therapy,Patient/ Caregiver Education,Self-Care/ Home Management,Soft Tissue Mobilization,Taping, Therapeutic Exercises Modalities Cold Pack/Ice Massage,Hot Packs Other Therapeutic Interventions Independent self care aquatic exercise since incision has fully healed. Next Visit Focus/Plan Next Note Type Progress Note Next Visit Plan L TKA rehabilitation. L knee manipulation 06/20/20 followed by daily PT for 2 weeks per surgeon request, then therapy 2-3x/week as needed. Review lymph exercise program if needed. L knee ROM immediately after bike with flex stretch applied as tolerated. Increase self ROM ex on Ex bike. STM and scar mob as needed. Cryotherapy/ Cryocuff and positioning to reduce edema and improve ROM ( as tolerated). Curb training & HEP progression when appropriate. Plan of Care Dates Plan of Care Start Date 05/24/20 Plan of Care End Date 07/28/20 Electronically Signed by: Gabriella Hirsch, PT 06/10/20 4310 Please Sign and Return: I have reviewed this Plan of Care and certify that the skilled therapy services above are required to meet the patient?s needs. Physician Signature Date Printed Name and Credentials Clinical Instructor Signature Printed Name and Credentials
[2020-06-14 13:33] VITALS: BP 107/79; BP 110/71; BP 124/75; PULSE 64; PULSE 71
--- NOTE | 2020-06-14 15:44 | PT.OTN ---
Current Diagnoses Unilateral primary osteoarthritis, left knee (06/14/20) Effusion, right knee (06/14/20) Pain in right knee (06/14/20) Muscle weakness (generalized) (06/14/20) Other abnormalities of gait and mobility (06/14/20) Physical Therapy Treatment Note PT-OP-A Visit Information Start: 04/23/20 17:37 Freq: Status: Active Protocol: Document 06/14/20 13:33 LRN (Rec: 06/14/20 15:41 LRN [id number]) Out-Patient Physical Therapy Visit Information Visit Information Visit Type Treatment Note Visit Start Time 13:33 Visit Stop Time 14:14 Total Visit Minutes 51 Visit Number 14 Evaluation Information Evaluation Date 04/29/20 Precautions Precautions Arthritis, Back & Neck pain since surgery. PT-OP-B Current Condition Start: 04/23/20 17:37 Freq: Status: Active Protocol: Document 04/29/20 12:47 LRN (Rec: 04/29/20 14:04 LRN [id number]) Current Condition History of Current Condition Onset Date 04/22/20 Current Complaints Decreased R knee mobility, must lift leg and walks with FWW. Dec sleep History of Current Condition Elective Day surgery @ [facility] for L TKA. Since home has been doing a home exercise program. She has been doing them 1-2x/day. DA staying with her until 2 days ago and she is expecting another DA to come in May. Future Testing and Treatments Planned Next appt is with Dr. Nava's assistance 05/07/20 (9:45a), appt with Dr Nava 06/04/20. Developmental History Developmental History R Anterior cruciate and MCL surgery after ski fall (1976) followed by surgery to repair and was in a full leg cast for 6 weeks. Pt reports arthritis set and has had injections in the R knee since . Treatment Goals Patient/Caregiver Goals Pt goal is to walk long distance (6 blks or 2-3 miles) . Walk normal without walker. Golf, water activities. 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 Baseline Function- Other Able to sleeps mostly through the night. Current Functional Impairments (Reported) Functional Limitations- ADL's Decreased gait ability, using FWW and must lift leg to walk Aches. Functional Limitations- Mobility/Gait Ambs with FWW. Walks around the house Functional Limitations- Other Difficulty sleeping, sleeps 1 hour at time. Personal Factors Other Personal Factors That May Effect Lives alone, will have help Therapy/Recovery from daughter coming in May. PT-OP-C Subjective Start: 04/23/20 17:37 Freq: Status: Active Protocol: Document 06/14/20 13:33 LRN (Rec: 06/14/20 15:41 LRN [id number]) OP-PT Subjective Patient Comments Patient Comments L knee hurts today. PT-OP-G Mobility & Gait Start: 04/23/20 17:37 Freq: Status: Active Protocol: Document 04/29/20 12:47 LRN (Rec: 04/29/20 14:04 LRN [id number]) OP Mobility Evaluation Bed Mobility Supine to and from Sit Independent OP Gait Assessment Gait Gait Assistance Required: Independent Able to Maintain Weight Bearing Status Yes During Gait Assistive Devices Assistive Device Standard Walker Orthotic/Prosthetic Devices or Brace: No Gait Deviations General Gait Pattern Antalgic,Decreased Stride Length,Flexed Trunk Stair Climbing Evaluation Comments Stair Climbing Comments Pt has no stairs at home. PT-OP-H Neuro Start: 04/23/20 17:37 Freq: Status: Active Protocol: Document 06/14/20 13:33 LRN (Rec: 06/14/20 15:41 LRN [id number]) Vital Signs Pulse After Cryotherapy Pulse at Rest (bpm) 64 During cryotherapy to L knee Pulse at Rest (bpm) 71 Blood Pressure After Cryotherapy Blood Pressure (90/60-120/80 mmHg) 110/71 Blood Pressure Source Automatic Cuff,Left Upper Extremity Immediately upon sitting from supine Blood Pressure (90/60-120/80 mmHg) 107/79 Blood Pressure Source Automatic Cuff,Left Upper Extremity Diuring Cryotherapy of L knee Blood Pressure (90/60-120/80 mmHg) 124/75 H Blood Pressure Source Automatic Cuff,Left Upper Extremity PT-OP-J Posture/Palpation/Skin Start: 04/23/20 17:37 Freq: Status: Active Protocol: Document 04/29/20 12:47 LRN (Rec: 04/29/20 14:04 LRN [id number]) Palpation Assessment Location L knee Palpation Location Around L knee joint Palpation Findings Edema,Soft Tissue Tightness, Tenderness Palpation Details Increased temperature PT-OP-K Range of Motion Start: 04/23/20 17:37 Freq: Status: Active Protocol: Document 06/14/20 13:33 LRN (Rec: 06/14/20 15:41 LRN [id number]) Knee Goniometric Range of Motion Knee Supine L knee AROM Knee ROM WFL No Patient Position Supine Flexion Active (degrees) 100 Flexion Passive (degrees) 102 Comments Active L Knee flex is 102 after stretching. Sitting L knee AROM Knee ROM WFL No Patient Position Sitting Comments Sitting on Bike: Flex is 98 deg's. PT-OP-M Strength Start: 04/23/20 17:37 Freq: Status: Active Protocol: Document 04/29/20 12:47 LRN (Rec: 04/29/20 14:04 LRN [id number]) Knee Strength Knee Manual Muscle Testing Right Flexion (S2) 5 Normal Extension (L3) 5 Normal Left Flexion (S2) 3+ Fair+ Extension (L3) 3+ Fair+ PT-OP-Q Treatments Start: 04/23/20 17:37 Freq: Status: Active Protocol: Document 06/14/20 13:33 LRN (Rec: 06/14/20 15:41 LRN [id number]) Cardio Equipment Bicycle (Upright) Duration (Minutes) 10 Resistance 0 Seat Position 3 Other Pt able to do full revolution with heel set more posterior on pedal. Therapeutic Exercises Supine Exercises Heel Slides Supine Exercise Name Heel slides with foot on plinth and on TBall Side left Equipment Used Strap & TBall Reps/Minutes 3' x 2 different times during therapy Comments Flex: 100 deg's active, 102 deg's passive Prone Exercises Knee flex Prone Exercise Name Passive & assisted knee flex Side left Reps/Minutes 20' PT-OP-R Modalities Start: 04/23/20 17:37 Freq: Status: Active Protocol: Document 06/14/20 13:33 LRN (Rec: 06/14/20 15:41 LRN [id number]) Hot Pack/Cold Pack Treatment Cold Pack Location L Knee, legs on bolster in flex Patient Position Hooklying Treatment Duration (minutes) 10 Patient Tolerance Fair PT-OP-T Assessment and Plan Start: 04/23/20 17:37 Freq: Status: Active Protocol: Document 06/14/20 13:33 LRN (Rec: 06/14/20 15:41 LRN [id number]) Physical Therapy Assessment Goals Five Impairment L knee pain (5-7/10) Short Term Goal (STG) Dec pain at rest to 4-5/10 STG Duration 06/03/20 Shaker Operator Goal (LTG) Decr pain at rest to 0-1/10 and with walking activity to 2 -3/10. LTG Duration 07/28/20 Four Impairment Decreased L knee AROM (10-52 deg's) Short Term Goal (STG) Increase L knee AROM 0-105 deg 's. (AROM before surgery: 5- 100 deg's). (06/07/20: L knee (sup) PROM: flex is 102 deg's @ end of therapy) STG Duration 06/03/20 (06/07/20: Progressing ) Alf Goal (LTG) Increase L knee AROM 0-125 deg 's. LTG Duration 07/28/20 Three Impairment Pt unable to return to her prior pool exercise program, independently Short Term Goal (STG) Pt scar will be healed with good scar mobility and L knee AROM at least 5-95 deg's (05/31/20: Fair scar mobility. L knee AROM in sitting is 4- 85 deg's) STG Duration 05/27/20 (05/31/20: Progressing) Shaker Operator Goal (LTG) Pt able to get into the local pool and do her prior ex program with modifications as needed. LTG Duration 06/24/20 Two Impairment Antalgic gait using a FWW for safety Short Term Goal (STG) Pt will be able to walk with a normal gait pattern without a walker. STG Duration 05/20/20 (05/17/20: MET GOAL) Alf Goal (LTG) Pt will be able to walk a long distance of 6 blks or 2-3 miles with mild to no difficulty. LTG Duration 07/28/20 One Impairment Lacks appropriate self care HEP Alf Goal (LTG) Pt will be independent in a self care HEP for continued L knee/hip exercises. HEP TO DATE: INSTRUCTIONS GIVEN: *Do's/Don 'ts of lymph massage. *LE self lymph massage. AROM: *Bilateral BKFO, * Sitting knee ext, *Supine Ankle pumps, and *written I/S for knee flex stretch f/b 10 active stretches. RECOMMENDED POOL EXERCISES: * Knee flexion exercises. LTG Duration 07/28/20 (06/07/20: Progressing) Assessment Summary Assessment After stretching L knee into flexion the pt was able to actively flex the knee to 102 deg's, but was not able to improve PROM (remains at 102 deg's after stretching). Pt had increase in BP/HR after therapy while on cryotherapy with response of shakinging. Pt's BP/HR decreased to what the pt states is her normal after cryotherapy with use of warm blanket afterwards. 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 Physical Therapy Plan Frequency and Duration Frequency of Treatment Daily x 2 wks >3x/wk Plan of Care Start Date 05/24/20 Plan of Care End Date 07/28/20 Next Visit Focus/Plan Next Note Type Treatment Note Next Visit Plan Monitor BP/HR during therapy. Review lymph exercise program if needed. L knee manipulation 06/20/20 followed by daily PT for 2 weeks per surgeon request, then therapy 2-3x/week as needed. L TKA rehabilitation. L knee ROM immediately after bike with flex stretch applied as tolerated. Increase self ROM ex on Ex bike. STM and scar mob as needed. Cryotherapy/ Cryocuff and positioning to reduce edema and improve ROM ( as tolerated). Curb training & HEP progression when appropriate.
[2020-06-17 12:43] VITALS: BP 113/85; BP 117/78; PULSE 73; PULSE 85
--- NOTE | 2020-06-17 16:52 | PT.OTN ---
Current Diagnoses Unilateral primary osteoarthritis, left knee (06/17/20) Effusion, right knee (06/17/20) Pain in right knee (06/17/20) Muscle weakness (generalized) (06/17/20) Other abnormalities of gait and mobility (06/17/20) Physical Therapy Treatment Note PT-OP-A Visit Information Start: 04/23/20 17:37 Freq: Status: Active Protocol: Document 06/17/20 12:43 LRN (Rec: 06/17/20 14:15 LRN [id number]) Out-Patient Physical Therapy Visit Information Visit Information Visit Type Progress Note Visit Start Time 13:30 Visit Stop Time 14:13 Total Visit Minutes 53 Visit Number 15 Evaluation Information Evaluation Date 04/29/20 Precautions Precautions Arthritis, Back & Neck pain since surgery. PT-OP-B Current Condition Start: 04/23/20 17:37 Freq: Status: Active Protocol: Document 04/29/20 12:47 LRN (Rec: 04/29/20 14:04 LRN [id number]) Current Condition History of Current Condition Onset Date 04/22/20 Current Complaints Decreased R knee mobility, must lift leg and walks with FWW. Dec sleep History of Current Condition Elective Day surgery @ [facility] for L TKA. Since home has been doing a home exercise program. She has been doing them 1-2x/day. DA staying with her until 2 days ago and she is expecting another DA to come in May. Future Testing and Treatments Planned Next appt is with Dr. Nava's assistance 05/07/20 (9:45a), appt with Dr Nava 06/04/20. Developmental History Developmental History R Anterior cruciate and MCL surgery after ski fall (1976) followed by surgery to repair and was in a full leg cast for 6 weeks. Pt reports arthritis set and has had injections in the R knee since . Treatment Goals Patient/Caregiver Goals Pt goal is to walk long distance (6 blks or 2-3 miles) . Walk normal without walker. Golf, water activities. 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 Baseline Function- Other Able to sleeps mostly through the night. Current Functional Impairments (Reported) Functional Limitations- ADL's Decreased gait ability, using FWW and must lift leg to walk Aches. Functional Limitations- Mobility/Gait Ambs with FWW. Walks around the house Functional Limitations- Other Difficulty sleeping, sleeps 1 hour at time. Personal Factors Other Personal Factors That May Effect Lives alone, will have help Therapy/Recovery from daughter coming in May. PT-OP-C Subjective Start: 04/23/20 17:37 Freq: Status: Active Protocol: Document 06/17/20 12:43 LRN (Rec: 06/17/20 14:15 LRN [id number]) OP-PT Subjective Patient Comments Patient Comments Pt requests progress note be sent to referring physician today. States she doesn't feel like she is making any progress. Seeing MD for pre- op meeting. PT-OP-G Mobility & Gait Start: 04/23/20 17:37 Freq: Status: Active Protocol: Document 04/29/20 12:47 LRN (Rec: 04/29/20 14:04 LRN [id number]) OP Mobility Evaluation Bed Mobility Supine to and from Sit Independent OP Gait Assessment Gait Gait Assistance Required: Independent Able to Maintain Weight Bearing Status Yes During Gait Assistive Devices Assistive Device Standard Walker Orthotic/Prosthetic Devices or Brace: No Gait Deviations General Gait Pattern Antalgic,Decreased Stride Length,Flexed Trunk Stair Climbing Evaluation Comments Stair Climbing Comments Pt has no stairs at home. PT-OP-H Neuro Start: 04/23/20 17:37 Freq: Status: Active Protocol: Document 06/17/20 12:43 LRN (Rec: 06/17/20 14:15 LRN [id number]) Vital Signs Pulse Resting Pulse at Rest (bpm) 85 Pulse Assessment Method Pulse Ox/Monitor During cryotherapy to L knee Pulse at Rest (bpm) 73 Blood Pressure ON bike Blood Pressure (90/60-120/80 mmHg) 113/85 H Blood Pressure Source Automatic Cuff,Left Upper Extremity Diuring Cryotherapy of L knee Blood Pressure (90/60-120/80 mmHg) 117/78 Blood Pressure Source Automatic Cuff,Left Upper Extremity Comments Vital Signs Comments Pt had no symptoms of distress after therapy. PT-OP-J Posture/Palpation/Skin Start: 04/23/20 17:37 Freq: Status: Active Protocol: Document 04/29/20 12:47 LRN (Rec: 04/29/20 14:04 LRN [id number]) Palpation Assessment Location L knee Palpation Location Around L knee joint Palpation Findings Edema,Soft Tissue Tightness, Tenderness Palpation Details Increased temperature PT-OP-K Range of Motion Start: 04/23/20 17:37 Freq: Status: Active Protocol: Document 06/17/20 12:43 LRN (Rec: 06/17/20 14:15 LRN [id number]) Knee Goniometric Range of Motion Knee Supine L knee AROM Knee ROM WFL No Patient Position Supine Flexion Active (degrees) 100 Flexion Passive (degrees) 102 Comments Active L Knee flex is 102 after stretching. Sitting L knee AROM Knee ROM WFL No Patient Position Sitting Flexion Active (degrees) 92 Flexion Passive (degrees) 93 Comments Movement of leg blocked by table supports. PT-OP-M Strength Start: 04/23/20 17:37 Freq: Status: Active Protocol: Document 04/29/20 12:47 LRN (Rec: 04/29/20 14:04 LRN [id number]) Knee Strength Knee Manual Muscle Testing Right Flexion (S2) 5 Normal Extension (L3) 5 Normal Left Flexion (S2) 3+ Fair+ Extension (L3) 3+ Fair+ PT-OP-Q Treatments Start: 04/23/20 17:37 Freq: Status: Active Protocol: Document 06/17/20 12:43 LRN (Rec: 06/17/20 14:15 LRN [id number]) Cardio Equipment Bicycle (Upright) Duration (Minutes) 10 Resistance 0 Seat Position 3 Other Pt able to do full revolution with heel set more posterior on pedal. Therapeutic Exercises Supine Exercises Heel Slides Supine Exercise Name Heel slides with foot on plinth and on TBall Side left Equipment Used Strap & TBall Reps/Minutes 3' x 2 different times during therapy Comments Flex: 100 deg's active, 102 deg's passive Prone Exercises Knee flex strengthening Prone Exercise Name ECC hamstring strengthening Side left Knee flex Prone Exercise Name Passive & assisted knee flex Side left Reps/Minutes 17' Sitting Exercises Passive knee flex Sitting Exercise Name Passive knee flex stretch Side right Reps/Minutes 3' Manual Therapy Treatment Soft Tissue Mobilization L knee scar Body Location Anterior L knee & scar while in flex stretch Mobilization Type Myofascial Release,Sustained Pressure Intensity/Depth Moderate Body Position Sitting Comments During knee flexion stretch Self-Care/Home Management Treatment Education Other Education Discussed plan of care of holding next visit until after manipulation with review of what pt is to do at home to continue working towards improving L knee ROM as tolerated. Recommended pt have help to get to/from therapy. PT-OP-R Modalities Start: 04/23/20 17:37 Freq: Status: Active Protocol: Document 06/17/20 12:43 LRN (Rec: 06/17/20 14:15 LRN [id number]) Hot Pack/Cold Pack Treatment Cold Pack Location L Knee, legs on bolster in flex Patient Position Hooklying Treatment Duration (minutes) 10 Patient Tolerance Fair PT-OP-T Assessment and Plan Start: 04/23/20 17:37 Freq: Status: Active Protocol: Document 06/17/20 12:43 LRN (Rec: 06/17/20 14:15 LRN [id number]) Physical Therapy Assessment Rehab Potential Rehabilitation Potential Good Evaluation Complexity Number of Personal Factors/Comorbidities 1-2 Number of Body Systems Impaired 4 or More Clinical Presentation at Evaluation Evolving Impairments Impairments Activity Tolerance,Edema, Functional Mobility,Gait,Pain, ROM,Soft Tissue Mobility, Strength Other Impairments Left LBP rated 3/10, Bilateral neck pain rated 3/10 Goals Five Impairment L knee pain (5-7/10) Short Term Goal (STG) Dec pain at rest to 4-5/10 STG Duration 06/03/20 Recruitment And Outreach Assistant Goal (LTG) Decr pain at rest to 0-1/10 and with walking activity to 2 -3/10. LTG Duration 07/28/20 Four Impairment Decreased L knee AROM (10-52 deg's) Short Term Goal (STG) Increase L knee AROM 0-105 deg 's. (AROM before surgery: 5- 100 deg's). (06/07/20: L knee (sup) PROM: flex is 102 deg's @ end of therapy) STG Duration 06/03/20 (06/07/20: Progressing ) Retirement Goal (LTG) Increase L knee AROM 0-125 deg 's. LTG Duration 07/28/20 Three Impairment Pt unable to return to her prior pool exercise program, independently Short Term Goal (STG) Pt scar will be healed with good scar mobility and L knee AROM at least 5-95 deg's (05/31/20: Fair scar mobility. L knee AROM in sitting is 4- 85 deg's) STG Duration 05/27/20 (05/31/20: Progressing) Recruitment And Outreach Assistant Goal (LTG) Pt able to get into the local pool and do her prior ex program with modifications as needed. LTG Duration 06/24/20 Two Impairment Antalgic gait using a FWW for safety Short Term Goal (STG) Pt will be able to walk with a normal gait pattern without a walker. STG Duration 05/20/20 (05/17/20: MET GOAL) Recruitment And Outreach Assistant Goal (LTG) Pt will be able to walk a long distance of 6 blks or 2-3 miles with mild to no difficulty. LTG Duration 07/28/20 One Impairment Lacks appropriate self care HEP Retirement Goal (LTG) Pt will be independent in a self care HEP for continued L knee/hip exercises. HEP TO DATE: INSTRUCTIONS GIVEN: *Do's/Don 'ts of lymph massage. *LE self lymph massage. AROM: *Bilateral BKFO, * Sitting knee ext, *Supine Ankle pumps, and *written I/S for knee flex stretch f/b 10 active stretches. RECOMMENDED POOL EXERCISES: * Knee flexion exercises. LTG Duration 07/28/20 (06/07/20: Progressing) Progress Towards Goals Progress Comments No change. Assessment Summary Assessment No significant change with pt' s L knee AROM/PROM. Active flexion (supine) is 100 deg's, passive flexion is 102 deg's. Pt has variable tolerance to therapy with occasional onset of shaking, tremors, chills, & dizziness after treatment. Symptoms are normalized with rest on ice and use of warm blanket. Physical Therapy Plan Frequency and Duration Frequency of Treatment Daily x 2 wks >3x/wk Plan of Care Start Date 06/17/20 Plan of Care End Date 08/16/20 Therapeutic Interventions Therapeutic Interventions Gait Training,Home Exercise Program,Joint Mobilizations, Manual Therapy,Patient/ Caregiver Education,Self-Care/ Home Management,Soft Tissue Mobilization,Taping, Therapeutic Exercises Modalities Cold Pack/Ice Massage,Hot Packs Other Therapeutic Interventions Independent self care aquatic exercise since incision has fully healed. Next Visit Focus/Plan Next Note Type Progress Note Next Visit Plan Reassess with pt returning after L knee manipulation for aggressive L knee s/p TKA & Manipulation (06/24/20). Monitor BP/HR during therapy. L knee manipulation 06/20/20 followed by daily PT for 2 weeks per surgeon request, then therapy 2-3x/week as needed. L TKA rehabilitation. L knee ROM immediately after bike with flex stretch applied as tolerated. Increase self ROM ex on Ex bike. STM and scar mob as needed. Cryotherapy/Cryocuff and positioning to reduce edema and improve ROM (as tolerated). Curb training & HEP progression when appropriate.
--- NOTE | 2020-06-17 16:56 | PT.OPPN ---
Current Diagnoses Unilateral primary osteoarthritis, left knee (06/17/20) Effusion, right knee (06/17/20) Pain in right knee (06/17/20) Muscle weakness (generalized) (06/17/20) Other abnormalities of gait and mobility (06/17/20) Physical Therapy Progress Note PT-OP-A Visit Information Start: 04/23/20 17:37 Freq: Status: Active Protocol: Document 06/17/20 12:43 LRN (Rec: 06/17/20 14:15 LRN [id number]) Out-Patient Physical Therapy Visit Information Visit Information Visit Type Progress Note Visit Start Time 13:30 Visit Stop Time 14:13 Total Visit Minutes 53 Visit Number 15 Evaluation Information Evaluation Date 04/29/20 Precautions Precautions Arthritis, Back & Neck pain since surgery. PT-OP-B Current Condition Start: 04/23/20 17:37 Freq: Status: Active Protocol: Document 04/29/20 12:47 LRN (Rec: 04/29/20 14:04 LRN [id number]) Current Condition History of Current Condition Onset Date 04/22/20 Current Complaints Decreased R knee mobility, must lift leg and walks with FWW. Dec sleep History of Current Condition Elective Day surgery @ [facility] for L TKA. Since home has been doing a home exercise program. She has been doing them 1-2x/day. DA staying with her until 2 days ago and she is expecting another DA to come in May. Future Testing and Treatments Planned Next appt is with Dr. Nava's assistance 05/07/20 (9:45a), appt with Dr Nava 06/04/20. Developmental History Developmental History R Anterior cruciate and MCL surgery after ski fall (1976) followed by surgery to repair and was in a full leg cast for 6 weeks. Pt reports arthritis set and has had injections in the R knee since . Treatment Goals Patient/Caregiver Goals Pt goal is to walk long distance (6 blks or 2-3 miles) . Walk normal without walker. Golf, water activities. 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 Baseline Function- Other Able to sleeps mostly through the night. Current Functional Impairments (Reported) Functional Limitations- ADL's Decreased gait ability, using FWW and must lift leg to walk Aches. Functional Limitations- Mobility/Gait Ambs with FWW. Walks around the house Functional Limitations- Other Difficulty sleeping, sleeps 1 hour at time. Personal Factors Other Personal Factors That May Effect Lives alone, will have help Therapy/Recovery from daughter coming in May. PT-OP-C Subjective Start: 04/23/20 17:37 Freq: Status: Active Protocol: Document 06/17/20 12:43 LRN (Rec: 06/17/20 14:15 LRN [id number]) OP-PT Subjective Patient Comments Patient Comments Pt requests progress note be sent to referring physician today. States she doesn't feel like she is making any progress. Seeing MD for pre- op meeting. PT-OP-G Mobility & Gait Start: 04/23/20 17:37 Freq: Status: Active Protocol: Document 04/29/20 12:47 LRN (Rec: 04/29/20 14:04 LRN [id number]) OP Mobility Evaluation Bed Mobility Supine to and from Sit Independent OP Gait Assessment Gait Gait Assistance Required: Independent Able to Maintain Weight Bearing Status Yes During Gait Assistive Devices Assistive Device Standard Walker Orthotic/Prosthetic Devices or Brace: No Gait Deviations General Gait Pattern Antalgic,Decreased Stride Length,Flexed Trunk Stair Climbing Evaluation Comments Stair Climbing Comments Pt has no stairs at home. PT-OP-H Neuro Start: 04/23/20 17:37 Freq: Status: Active Protocol: Document 06/17/20 12:43 LRN (Rec: 06/17/20 14:15 LRN [id number]) Vital Signs Pulse Resting Pulse at Rest (bpm) 85 Pulse Assessment Method Pulse Ox/Monitor During cryotherapy to L knee Pulse at Rest (bpm) 73 Blood Pressure ON bike Blood Pressure (90/60-120/80 mmHg) 113/85 H Blood Pressure Source Automatic Cuff,Left Upper Extremity Diuring Cryotherapy of L knee Blood Pressure (90/60-120/80 mmHg) 117/78 Blood Pressure Source Automatic Cuff,Left Upper Extremity Comments Vital Signs Comments Pt had no symptoms of distress after therapy. PT-OP-J Posture/Palpation/Skin Start: 04/23/20 17:37 Freq: Status: Active Protocol: Document 04/29/20 12:47 LRN (Rec: 04/29/20 14:04 LRN [id number]) Palpation Assessment Location L knee Palpation Location Around L knee joint Palpation Findings Edema,Soft Tissue Tightness, Tenderness Palpation Details Increased temperature PT-OP-K Range of Motion Start: 04/23/20 17:37 Freq: Status: Active Protocol: Document 06/17/20 12:43 LRN (Rec: 06/17/20 14:15 LRN [id number]) Knee Goniometric Range of Motion Knee Measured in Degrees Supine L knee AROM Knee ROM WFL No Patient Position Supine Flexion Active (degrees) 100 Flexion Passive (degrees) 102 Comments Active L Knee flex is 102 after stretching. Sitting L knee AROM Knee ROM WFL No Patient Position Sitting Flexion Active (degrees) 92 Flexion Passive (degrees) 93 Comments Movement of leg blocked by table supports. PT-OP-M Strength Start: 04/23/20 17:37 Freq: Status: Active Protocol: Document 04/29/20 12:47 LRN (Rec: 04/29/20 14:04 LRN [id number]) Knee Strength Knee Manual Muscle Testing Right Flexion (S2) 5 Normal Extension (L3) 5 Normal Left Flexion (S2) 3+ Fair+ Extension (L3) 3+ Fair+ PT-OP-T Assessment and Plan Start: 04/23/20 17:37 Freq: Status: Active Protocol: Document 06/17/20 12:43 LRN (Rec: 06/17/20 14:15 LRN [id number]) Physical Therapy Assessment Rehab Potential Rehabilitation Potential Good Evaluation Complexity Number of Personal Factors/Comorbidities 1-2 Number of Body Systems Impaired 4 or More Clinical Presentation at Evaluation Evolving Impairments Impairments Activity Tolerance,Edema, Functional Mobility,Gait,Pain, ROM,Soft Tissue Mobility, Strength Other Impairments Left LBP rated 3/10, Bilateral neck pain rated 3/10 Goals Five Impairment L knee pain (5-7/10) Short Term Goal (STG) Dec pain at rest to 4-5/10 STG Duration 07/04/20 Purchasing Clerk Goal (LTG) Decr pain at rest to 0-1/10 and with walking activity to 2 -3/10. LTG Duration 08/16/20 Four Impairment Decreased L knee AROM (10-52 deg's) Short Term Goal (STG) Increase L knee AROM 0-105 deg 's. (AROM before surgery: 5- 100 deg's). (06/07/20: L knee (sup) PROM: flex is 102 deg's @ end of therapy) STG Duration 06/21/20 (06/07/20: Progressing ) Nursing Home Goal (LTG) Increase L knee AROM 0-125 deg 's. LTG Duration 06/28/20 Three Impairment Pt unable to return to her prior pool exercise program, independently Short Term Goal (STG) Pt scar will be healed with good scar mobility and L knee AROM at least 5-95 deg's (05/31/20: Fair scar mobility. L knee AROM in sitting is 4- 85 deg's) STG Duration 06/27/20 (05/31/20: Progressing) Purchasing Clerk Goal (LTG) Pt able to get into the local pool and do her prior ex program with modifications as needed. LTG Duration 08/16/20 Two Impairment Antalgic gait using a FWW for safety Short Term Goal (STG) Pt will be able to walk with a normal gait pattern without a walker. STG Duration 05/20/20 (05/17/20: MET GOAL) Nursing Home Goal (LTG) Pt will be able to walk a long distance of 6 blks or 2-3 miles with mild to no difficulty. LTG Duration 08/16/20 One Impairment Lacks appropriate self care HEP Purchasing Clerk Goal (LTG) Pt will be independent in a self care HEP for continued L knee/hip exercises. HEP TO DATE: INSTRUCTIONS GIVEN: *Do's/Don 'ts of lymph massage. *LE self lymph massage. AROM: *Bilateral BKFO, * Sitting knee ext, *Supine Ankle pumps, and *written I/S for knee flex stretch f/b 10 active stretches. RECOMMENDED POOL EXERCISES: * Knee flexion exercises. LTG Duration 08/16/20 (06/07/20: Progressing) Progress Towards Goals Progress Comments No change. Assessment Summary Assessment No significant change with pt' s L knee AROM/PROM. Active flexion (supine) is 100 deg's, passive flexion is 102 deg's. Pt has variable tolerance to therapy with occasional onset of shaking, tremors, chills, & dizziness after treatment. Symptoms are normalized with rest on ice and use of warm blanket. Physical Therapy Plan Frequency and Duration Frequency of Treatment Daily x 2 wks >3x/wk Plan of Care Start Date 06/17/20 Plan of Care End Date 08/16/20 Therapeutic Interventions Therapeutic Interventions Gait Training,Home Exercise Program,Joint Mobilizations, Manual Therapy,Patient/ Caregiver Education,Self-Care/ Home Management,Soft Tissue Mobilization,Taping, Therapeutic Exercises Modalities Cold Pack/Ice Massage,Hot Packs Other Therapeutic Interventions Independent self care aquatic exercise since incision has fully healed. Next Visit Focus/Plan Next Note Type Progress Note Next Visit Plan Reassess with pt returning after L knee manipulation for aggressive L knee s/p TKA & Manipulation (06/24/20). Monitor BP/HR during therapy. L knee manipulation 06/20/20 followed by daily PT for 2 weeks per surgeon request, then therapy 2-3x/week as needed. L TKA rehabilitation. L knee ROM immediately after bike with flex stretch applied as tolerated. Increase self ROM ex on Ex bike. STM and scar mob as needed. Cryotherapy/Cryocuff and positioning to reduce edema and improve ROM (as tolerated). Curb training & HEP progression when appropriate.
--- NOTE | 2020-06-17 16:56 | PT.OPPOC ---
Physical, Occupational & Speech Therapy At [facility] Current Diagnoses Unilateral primary osteoarthritis, left knee (06/17/20) Effusion, right knee (06/17/20) Pain in right knee (06/17/20) Muscle weakness (generalized) (06/17/20) Other abnormalities of gait and mobility (06/17/20) Visit Care Team Role Provider Type Latesha Fernandes PA-C Family Provider Non-Staff Primary Care Provider Specialty: Internal Medicine Address: [address] [place] [address], [id number] Email: [email or web address] Josias Nava MD Attending Provider Non-Staff Referring Provider Specialty: Orthopedics Address: [address] [place] [address], [id number] Email: Plan Of Care PT-OP-T Assessment and Plan Start: 04/23/20 17:37 Freq: Status: Active Protocol: Document 06/17/20 12:43 LRN (Rec: 06/17/20 14:15 LRN [id number]) Physical Therapy Assessment Rehab Potential Rehabilitation Potential Good Evaluation Complexity Number of Personal Factors/Comorbidities 1-2 Number of Body Systems Impaired 4 or More Clinical Presentation at Evaluation Evolving Impairments Impairments Activity Tolerance,Edema, Functional Mobility,Gait,Pain, ROM,Soft Tissue Mobility, Strength Other Impairments Left LBP rated 3/10, Bilateral neck pain rated 3/10 Goals Five Impairment L knee pain (5-7/10) Short Term Goal (STG) Dec pain at rest to 4-5/10 STG Duration 07/04/20 Long-Term Goal (LTG) Decr pain at rest to 0-1/10 and with walking activity to 2 -3/10. LTG Duration 08/16/20 Four Impairment Decreased L knee AROM (10-52 deg's) Short Term Goal (STG) Increase L knee AROM 0-105 deg 's. (AROM before surgery: 5- 100 deg's). (06/07/20: L knee (sup) PROM: flex is 102 deg's @ end of therapy) STG Duration 06/21/20 (06/07/20: Progressing ) Long-Term Goal (LTG) Increase L knee AROM 0-125 deg 's. LTG Duration 06/28/20 Three Impairment Pt unable to return to her prior pool exercise program, independently Short Term Goal (STG) Pt scar will be healed with good scar mobility and L knee AROM at least 5-95 deg's (05/31/20: Fair scar mobility. L knee AROM in sitting is 4- 85 deg's) STG Duration 06/27/20 (05/31/20: Progressing) Artillery Officer Goal (LTG) Pt able to get into the local pool and do her prior ex program with modifications as needed. LTG Duration 08/16/20 Two Impairment Antalgic gait using a FWW for safety Short Term Goal (STG) Pt will be able to walk with a normal gait pattern without a walker. STG Duration 05/20/20 (05/17/20: MET GOAL) Long-Term Goal (LTG) Pt will be able to walk a long distance of 6 blks or 2-3 miles with mild to no difficulty. LTG Duration 08/16/20 One Impairment Lacks appropriate self care HEP Long-Term Goal (LTG) Pt will be independent in a self care HEP for continued L knee/hip exercises. HEP TO DATE: INSTRUCTIONS GIVEN: *Do's/Don 'ts of lymph massage. *LE self lymph massage. AROM: *Bilateral BKFO, * Sitting knee ext, *Supine Ankle pumps, and *written I/S for knee flex stretch f/b 10 active stretches. RECOMMENDED POOL EXERCISES: * Knee flexion exercises. LTG Duration 08/16/20 (06/07/20: Progressing) Progress Towards Goals Progress Comments No change. Assessment Summary Assessment No significant change with pt' s L knee AROM/PROM. Active flexion (supine) is 100 deg's, passive flexion is 102 deg's. Pt has variable tolerance to therapy with occasional onset of shaking, tremors, chills, & dizziness after treatment. Symptoms are normalized with rest on ice and use of warm blanket. Physical Therapy Plan Frequency and Duration Frequency of Treatment Daily x 2 wks >3x/wk Plan of Care Start Date 06/17/20 Plan of Care End Date 08/16/20 Therapeutic Interventions Therapeutic Interventions Gait Training,Home Exercise Program,Joint Mobilizations, Manual Therapy,Patient/ Caregiver Education,Self-Care/ Home Management,Soft Tissue Mobilization,Taping, Therapeutic Exercises Modalities Cold Pack/Ice Massage,Hot Packs Other Therapeutic Interventions Independent self care aquatic exercise since incision has fully healed. Next Visit Focus/Plan Next Note Type Progress Note Next Visit Plan Reassess with pt returning after L knee manipulation for aggressive L knee s/p TKA & Manipulation (06/24/20). Monitor BP/HR during therapy. L knee manipulation 06/20/20 followed by daily PT for 2 weeks per surgeon request, then therapy 2-3x/week as needed. L TKA rehabilitation. L knee ROM immediately after bike with flex stretch applied as tolerated. Increase self ROM ex on Ex bike. STM and scar mob as needed. Cryotherapy/Cryocuff and positioning to reduce edema and improve ROM (as tolerated). Curb training & HEP progression when appropriate. Plan of Care Dates Plan of Care Start Date 06/17/20 Plan of Care End Date 08/16/20 Electronically Signed by: Gabriella Hirsch, PT 06/17/20 [id number] Please Sign and Return: I have reviewed this Plan of Care and certify that the skilled therapy services above are required to meet the patient?s needs. Physician Signature Date Printed Name and Credentials Clinical Instructor Signature Printed Name and Credentials
--- NOTE | 2020-06-21 18:09 | PT.OTN ---
Current Diagnoses Unilateral primary osteoarthritis, left knee (06/21/20) Effusion, right knee (06/21/20) Pain in right knee (06/21/20) Muscle weakness (generalized) (06/21/20) Other abnormalities of gait and mobility (06/21/20) Physical Therapy Treatment Note PT-OP-A Visit Information Start: 04/23/20 17:37 Freq: Status: Active Protocol: Document 06/21/20 13:35 LRN (Rec: 06/21/20 14:22 LRN [id number]) Out-Patient Physical Therapy Visit Information Visit Information Visit Type Treatment Note Visit Start Time 13:35 Visit Stop Time 14:21 Total Visit Minutes 46 Visit Number 16 Evaluation Information Evaluation Date 04/29/20 Precautions Precautions Arthritis, Back & Neck pain since surgery. PT-OP-B Current Condition Start: 04/23/20 17:37 Freq: Status: Active Protocol: Document 04/29/20 12:47 LRN (Rec: 04/29/20 14:04 LRN [id number]) Current Condition History of Current Condition Onset Date 04/22/20 Current Complaints Decreased R knee mobility, must lift leg and walks with FWW. Dec sleep History of Current Condition Elective Day surgery @ [facility] for L TKA. Since home has been doing a home exercise program. She has been doing them 1-2x/day. DA staying with her until 2 days ago and she is expecting another DA to come in May. Future Testing and Treatments Planned Next appt is with Dr. Nava's assistance 05/07/20 (9:45a), appt with Dr Nava 06/04/20. Developmental History Developmental History R Anterior cruciate and MCL surgery after ski fall (1976) followed by surgery to repair and was in a full leg cast for 6 weeks. Pt reports arthritis set and has had injections in the R knee since . Treatment Goals Patient/Caregiver Goals Pt goal is to walk long distance (6 blks or 2-3 miles) . Walk normal without walker. Golf, water activities. 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 Baseline Function- Other Able to sleeps mostly through the night. Current Functional Impairments (Reported) Functional Limitations- ADL's Decreased gait ability, using FWW and must lift leg to walk Aches. Functional Limitations- Mobility/Gait Ambs with FWW. Walks around the house Functional Limitations- Other Difficulty sleeping, sleeps 1 hour at time. Personal Factors Other Personal Factors That May Effect Lives alone, will have help Therapy/Recovery from daughter coming in May. PT-OP-C Subjective Start: 04/23/20 17:37 Freq: Status: Active Protocol: Document 06/21/20 13:35 LRN (Rec: 06/21/20 14:22 LRN [id number]) OP-PT Subjective Patient Comments Patient Comments Pt requests review of home ex' s from her pamphlet. PT-OP-G Mobility & Gait Start: 04/23/20 17:37 Freq: Status: Active Protocol: Document 04/29/20 12:47 LRN (Rec: 04/29/20 14:04 LRN [id number]) OP Mobility Evaluation Bed Mobility Supine to and from Sit Independent OP Gait Assessment Gait Gait Assistance Required: Independent Able to Maintain Weight Bearing Status Yes During Gait Assistive Devices Assistive Device Standard Walker Orthotic/Prosthetic Devices or Brace: No Gait Deviations General Gait Pattern Antalgic,Decreased Stride Length,Flexed Trunk Stair Climbing Evaluation Comments Stair Climbing Comments Pt has no stairs at home. PT-OP-H Neuro Start: 04/23/20 17:37 Freq: Status: Active Protocol: Document 06/17/20 12:43 LRN (Rec: 06/17/20 14:15 LRN [id number]) Vital Signs Pulse Resting Pulse at Rest (bpm) 85 Pulse Assessment Method Pulse Ox/Monitor During cryotherapy to L knee Pulse at Rest (bpm) 73 Blood Pressure ON bike Blood Pressure (90/60-120/80 mmHg) 113/85 H Blood Pressure Source Automatic Cuff,Left Upper Extremity Diuring Cryotherapy of L knee Blood Pressure (90/60-120/80 mmHg) 117/78 Blood Pressure Source Automatic Cuff,Left Upper Extremity Comments Vital Signs Comments Pt had no symptoms of distress after therapy. PT-OP-J Posture/Palpation/Skin Start: 04/23/20 17:37 Freq: Status: Active Protocol: Document 04/29/20 12:47 LRN (Rec: 04/29/20 14:04 LRN [id number]) Palpation Assessment Location L knee Palpation Location Around L knee joint Palpation Findings Edema,Soft Tissue Tightness, Tenderness Palpation Details Increased temperature PT-OP-K Range of Motion Start: 04/23/20 17:37 Freq: Status: Active Protocol: Document 06/17/20 12:43 LRN (Rec: 06/17/20 14:15 LRN [id number]) Knee Goniometric Range of Motion Knee Supine L knee AROM Knee ROM WFL No Patient Position Supine Flexion Active (degrees) 100 Flexion Passive (degrees) 102 Comments Active L Knee flex is 102 after stretching. Sitting L knee AROM Knee ROM WFL No Patient Position Sitting Flexion Active (degrees) 92 Flexion Passive (degrees) 93 Comments Movement of leg blocked by table supports. PT-OP-M Strength Start: 04/23/20 17:37 Freq: Status: Active Protocol: Document 04/29/20 12:47 LRN (Rec: 04/29/20 14:04 LRN [id number]) Knee Strength Knee Manual Muscle Testing Right Flexion (S2) 5 Normal Extension (L3) 5 Normal Left Flexion (S2) 3+ Fair+ Extension (L3) 3+ Fair+ PT-OP-Q Treatments Start: 04/23/20 17:37 Freq: Status: Active Protocol: Document 06/21/20 13:35 LRN (Rec: 06/21/20 14:22 LRN [id number]) Cardio Equipment Bicycle (Upright) Duration (Minutes) 10 Resistance 0 Seat Position 3 Other Pt able to do full revolution with heel set more posterior on pedal. Manual Therapy Treatment Manual Techniques Manual CPM knee flex Type CPM Body Location L knee Body Position Supine Reps/Duration 10' Comments Pt leg in CPM with limit at 125 deg's, but only able to get machine to max flex to 108 deg's. Self-Care/Home Management Treatment Education Patient Education Joint Protection,Safety Other Education Extra time to educate pt in set up of CPM machine at home with pt watching application of supports and straps. Educated pt on use of L knee CPM machine. Activities Self-Care/Home Management Activities Pt advised to contact [employer] for instruction on changing knee flexion limit since it appeared to be stuck at 106- 108 degs flexion. [employer] was called and requested they provide pt with written instructions in use of CPM. PT-OP-R Modalities Start: 04/23/20 17:37 Freq: Status: Active Protocol: Document 06/17/20 12:43 LRN (Rec: 06/17/20 14:15 LRN [id number]) Hot Pack/Cold Pack Treatment Cold Pack Location L Knee, legs on bolster in flex Patient Position Hooklying Treatment Duration (minutes) 10 Patient Tolerance Fair PT-OP-T Assessment and Plan Start: 04/23/20 17:37 Freq: Status: Active Protocol: Document 06/21/20 13:35 LRN (Rec: 06/21/20 14:22 LRN [id number]) Physical Therapy Assessment Goals Five Impairment L knee pain (5-7/10) Short Term Goal (STG) Dec pain at rest to 4-5/10 STG Duration 07/04/20 Warp Preparer Goal (LTG) Decr pain at rest to 0-1/10 and with walking activity to 2 -3/10. LTG Duration 08/16/20 Four Impairment Decreased L knee AROM (10-52 deg's) Short Term Goal (STG) Increase L knee AROM 0-105 deg 's. (AROM before surgery: 5- 100 deg's). (06/07/20: L knee (sup) PROM: flex is 102 deg's @ end of therapy) STG Duration 06/21/20 (06/07/20: Progressing ) Halfway Goal (LTG) Increase L knee AROM 0-125 deg 's. LTG Duration 06/28/20 Three Impairment Pt unable to return to her prior pool exercise program, independently Short Term Goal (STG) Pt scar will be healed with good scar mobility and L knee AROM at least 5-95 deg's (05/31/20: Fair scar mobility. L knee AROM in sitting is 4- 85 deg's) STG Duration 06/27/20 (05/31/20: Progressing) Warp Preparer Goal (LTG) Pt able to get into the local pool and do her prior ex program with modifications as needed. LTG Duration 08/16/20 Two Impairment Antalgic gait using a FWW for safety Short Term Goal (STG) Pt will be able to walk with a normal gait pattern without a walker. STG Duration 05/20/20 (05/17/20: MET GOAL) Warp Preparer Goal (LTG) Pt will be able to walk a long distance of 6 blks or 2-3 miles with mild to no difficulty. LTG Duration 08/16/20 One Impairment Lacks appropriate self care HEP Halfway Goal (LTG) Pt will be independent in a self care HEP for continued L knee/hip exercises. HEP TO DATE: INSTRUCTIONS GIVEN: *Do's/Don 'ts of lymph massage. *LE self lymph massage. AROM: *Bilateral BKFO, * Sitting knee ext, *Supine Ankle pumps, and *written I/S for knee flex stretch f/b 10 active stretches. RECOMMENDED POOL EXERCISES: * Knee flexion exercises. LTG Duration 08/16/20 (06/07/20: Progressing) Assessment Summary Assessment Pt appeared to have a good understanding of use of CPM machine after set up. The CPM was not flexing past 108 deg' s flexion and appeared to stop at mostly 106 deg's. CPM set for speed 5, ROM: -2 to 125 deg's, continuous. Physical Therapy Plan Frequency and Duration Frequency of Treatment Daily x 2 wks >3x/wk Plan of Care Start Date 06/17/20 Plan of Care End Date 08/16/20 Next Visit Focus/Plan Next Note Type Treatment Note Next Visit Plan Reassess with pt returning after L knee s/p TKA & Manipulation (06/24/20) for improving knee flex to at least 120 deg's or more. Monitor BP/HR during therapy. L knee manipulation 06/20/20 followed by daily PT for 2 weeks per surgeon request, then therapy 2-3x/week as needed. L TKA rehabilitation. L knee ROM immediately after bike with flex stretch applied as tolerated. Increase self ROM ex on Ex bike. STM and scar mob as needed. Cryotherapy/Cryocuff and positioning to reduce edema and improve ROM (as tolerated). Curb training & HEP progression when appropriate.
[2020-06-24 13:41] VITALS: BP 101/72; BP 106/72; PULSE 70; PULSE 82
--- NOTE | 2020-06-24 17:26 | PT.OTN ---
Current Diagnoses Unilateral primary osteoarthritis, left knee (06/24/20) Effusion, right knee (06/24/20) Pain in right knee (06/24/20) Muscle weakness (generalized) (06/24/20) Other abnormalities of gait and mobility (06/24/20) Physical Therapy Treatment Note PT-OP-A Visit Information Start: 04/23/20 17:37 Freq: Status: Active Protocol: Document 06/24/20 13:41 LRN (Rec: 06/24/20 14:25 LRN [id number]) Out-Patient Physical Therapy Visit Information Visit Information Visit Type Progress Note Visit Start Time 13:41 Visit Stop Time 14:24 Total Visit Minutes 43 Visit Number 17 Evaluation Information Evaluation Date 04/29/20 Precautions Precautions Arthritis, Back & Neck pain since surgery. PT-OP-B Current Condition Start: 04/23/20 17:37 Freq: Status: Active Protocol: Document 06/24/20 13:41 LRN (Rec: 06/24/20 14:25 LRN [id number]) Current Condition History of Current Condition Onset Date 06/21/20 Current Complaints L knee limited ROM. History of Current Condition Pt is a 75 yo female who underwent a L TKA on 04/21/20 and is now returning after a L knee manipulation on 06/21/20. Pt has sensation in the L LE with no complaints of pain with pressure at the knee. Pt has sensation to touch, hot/ cold, pressure (decreased). Prior Treatments and Tests L TKA rehab 04/29/20 - 06/21/20. Developmental History Developmental History R Anterior cruciate and MCL surgery after ski fall (1976) followed by surgery to repair and was in a full leg cast for 6 weeks. Pt reports arthritis set and has had injections in the R knee since . Treatment Goals Patient/Caregiver Goals At minimal 120 deg's L knee active flexion. Prior Functional Status Baseline Function- ADL's Modified Independent Baseline Function- Mobility Independent Baseline Function- Gait Antalgic Gait, stiffness of R knee Baseline Function- Other In surgery: 140 deg's L knee flexion. Current Functional Impairments (Reported) Functional Limitations- ADL's Tired, from AM L knee manipulation. Functional Limitations- Mobility/Gait Ambs with an antalgic gait. Functional Limitations- Other L knee AROM: Sittin deg's. Supine active: 110 deg's; passive: 120 deg's. Personal Factors Other Personal Factors That May Effect Lives alone. Therapy/Recovery PT-OP-C Subjective Start: 04/23/20 17:37 Freq: Status: Active Protocol: Document 06/24/20 13:41 LRN (Rec: 06/24/20 14:25 LRN [id number]) OP-PT Subjective Patient Comments Patient Comments States MD got her knee to 140 deg's but he will be happy with 120 deg's. Pt reports feeling well, denies dizziness , nausea, lightheadedness. PT-OP-G Mobility & Gait Start: 04/23/20 17:37 Freq: Status: Active Protocol: Document 04/29/20 12:47 LRN (Rec: 04/29/20 14:04 LRN [id number]) OP Mobility Evaluation Bed Mobility Supine to and from Sit Independent OP Gait Assessment Gait Gait Assistance Required: Independent Able to Maintain Weight Bearing Status Yes During Gait Assistive Devices Assistive Device Standard Walker Orthotic/Prosthetic Devices or Brace: No Gait Deviations General Gait Pattern Antalgic,Decreased Stride Length,Flexed Trunk Stair Climbing Evaluation Comments Stair Climbing Comments Pt has no stairs at home. PT-OP-H Neuro Start: 04/23/20 17:37 Freq: Status: Active Protocol: Document 06/24/20 13:41 LRN (Rec: 06/24/20 14:25 LRN [id number]) Sensation Evaluation Gross Sensation Gross Sensation WNL Vital Signs Pulse On bike Pulse With Activity (bpm) 82 Immediately upon sitting from supine Pulse at Rest (bpm) 70 Blood Pressure ON bike Blood Pressure (90/60-120/80 mmHg) 106/72 Blood Pressure Source Automatic Cuff,Left Upper Extremity After ex Blood Pressure (90/60-120/80 mmHg) 101/72 PT-OP-J Posture/Palpation/Skin Start: 04/23/20 17:37 Freq: Status: Active Protocol: Document 04/29/20 12:47 LRN (Rec: 04/29/20 14:04 LRN [id number]) Palpation Assessment Location L knee Palpation Location Around L knee joint Palpation Findings Edema,Soft Tissue Tightness, Tenderness Palpation Details Increased temperature PT-OP-K Range of Motion Start: 04/23/20 17:37 Freq: Status: Active Protocol: Document 06/24/20 13:41 LRN (Rec: 06/24/20 14:25 LRN [id number]) Knee Goniometric Range of Motion Knee Supine R knee AROM Knee ROM WFL Yes Patient Position Supine Flexion Active (degrees) 131 Flexion Passive (degrees) 131 Supine L knee AROM Knee ROM WFL No Patient Position Supine Flexion Active (degrees) 110 Flexion Passive (degrees) 120 Extension Active (degrees) 4 Sitting L knee AROM Knee ROM WFL No Patient Position Sitting Flexion Active (degrees) 102 Sitting R knee ROM Patient Position Sitting Comments 0-118 PT-OP-M Strength Start: 04/23/20 17:37 Freq: Status: Active Protocol: Document 04/29/20 12:47 LRN (Rec: 04/29/20 14:04 LRN [id number]) Knee Strength Knee Manual Muscle Testing Right Flexion (S2) 5 Normal Extension (L3) 5 Normal Left Flexion (S2) 3+ Fair+ Extension (L3) 3+ Fair+ PT-OP-Q Treatments Start: 04/23/20 17:37 Freq: Status: Active Protocol: Document 06/24/20 13:41 LRN (Rec: 06/24/20 14:25 LRN [id number]) Cardio Equipment Bicycle (Upright) Duration (Minutes) 8 Resistance 0 Seat Position 3>2 Other Pt able to do full revolution with heel set more posterior on pedal. Therapeutic Exercises Supine Exercises Heel Slides Supine Exercise Name Heel slides with foot on/0ff plinth and on TBall Side left Equipment Used Strap & TBall Reps/Minutes 30' Comments Pt gradually elevated head throughout ex until able to sit at edge of plint Sitting Exercises Passive knee flex Sitting Exercise Name Passive knee flex stretch Side right Reps/Minutes 3' Heels slides ([facility]) Sitting Exercise Name Heels slides Side left Reps/Minutes 2' Comments Assisted knee flex PT-OP-R Modalities Start: 04/23/20 17:37 Freq: Status: Active Protocol: Document 06/17/20 12:43 LRN (Rec: 06/17/20 14:15 LRN [id number]) Hot Pack/Cold Pack Treatment Cold Pack Location L Knee, legs on bolster in flex Patient Position Hooklying Treatment Duration (minutes) 10 Patient Tolerance Fair PT-OP-T Assessment and Plan Start: 04/23/20 17:37 Freq: Status: Active Protocol: Document 06/24/20 13:41 LRN (Rec: 06/24/20 14:25 LRN [id number]) Physical Therapy Assessment Goals Five Impairment L knee pain (5-7/10) Short Term Goal (STG) Dec pain at rest to 4-5/10 STG Duration 07/04/20 Alf Goal (LTG) Decr pain at rest to 0-1/10 and with walking activity to 2 -3/10. LTG Duration 08/16/20 Four Impairment Decreased L knee AROM (10-52 deg's) Short Term Goal (STG) Increase L knee AROM 0-120 deg 's. (AROM before surgery: 5- 100 deg's). (06/24/20: L knee (sup) AROM: flex is 110 deg's @ end of therapy; PROM 120 de'gs) STG Duration 06/21/20 (06/07/20: Progressing ) Eap Specialist Goal (LTG) Increase L knee AROM 0-125 deg 's. LTG Duration 06/28/20 Three Impairment Pt unable to return to her prior pool exercise program, independently Short Term Goal (STG) Pt scar will be healed with good scar mobility and L knee AROM at least 5-95 deg's (05/31/20: Fair scar mobility. L knee AROM in sitting is 4- 85 deg's) STG Duration 06/28/20 (05/31/20: Progressing) Alf Goal (LTG) Pt able to get into the local pool and do her prior ex program with modifications as needed. LTG Duration 08/16/20 Two Impairment Antalgic gait using a FWW for safety Short Term Goal (STG) Pt will be able to walk with a normal gait pattern without a walker. STG Duration 07/05/20 Alf Goal (LTG) Pt will be able to walk a long distance of 6 blks or 2-3 miles with mild to no difficulty. LTG Duration 08/16/20 One Impairment Lacks appropriate self care HEP Alf Goal (LTG) Pt will be independent in a self care HEP for continued L knee/hip exercises. HEP TO DATE: INSTRUCTIONS GIVEN: *Do's/Don 'ts of lymph massage. *LE self lymph massage. AROM: *Bilateral BKFO, * Sitting knee ext, *Supine Ankle pumps, and *written I/S for knee flex stretch f/b 10 active stretches. RECOMMENDED POOL EXERCISES: * Knee flexion exercises. LTG Duration 08/16/20 (06/07/20: Progressing) Assessment Summary Assessment Pt presents s/p L knee manipulation this morning. She presents with good awareness and is alert/ oriented x3. Coloration and mentation is normal. Her blood pressure is low, which she states is her normal. Pt tolerated treatment with ability to report when stretch was too much. She has no questions regarding her CPM machine, but I encouraged her to increase the flexion range to 125 deg's. L knee ROM at end of therapy (in supine) is AROM 110 deg's & PROM 120 deg' s. Extra time needed to assess pt's vitals during therapy due to having manipulation of L knee this morning under general anesthesia, pt showed no signs of distress during or after therapy. Pt will need further monitoring of vitals due to occasional post-therapy negative responses. Physical Therapy Plan Frequency and Duration Frequency of Treatment Daily x 2 wks >3x/wk Plan of Care Start Date 06/24/20 Plan of Care End Date 08/16/20 Next Visit Focus/Plan Next Note Type Treatment Note Next Visit Plan s/p L TKA (04/21/20) & Manipulation (06/24/20) for improving knee flex to at least 120 deg's or more. Monitor BP/HR during therapy. PT daily for 2 weeks per surgeon request, then therapy 2-3x/week as needed. L TKA rehabilitation. L knee ROM with flex stretch with close supervision because pt tends to allow overstretch f/b sympathetic response of nausea , shaking. STM and scar mob as needed. Cryotherapy/ Cryocuff and positioning to reduce edema and improve ROM ( as tolerated). Curb gait training & HEP progression when appropriate.
--- NOTE | 2020-06-24 17:30 | PT.OTN ---
Current Diagnoses Unilateral primary osteoarthritis, left knee (06/24/20) Effusion, right knee (06/24/20) Pain in right knee (06/24/20) Muscle weakness (generalized) (06/24/20) Other abnormalities of gait and mobility (06/24/20) Physical Therapy Treatment Note PT-OP-A Visit Information Start: 04/23/20 17:37 Freq: Status: Active Protocol: Document 06/24/20 13:41 LRN (Rec: 06/24/20 14:25 LRN [id number]) Out-Patient Physical Therapy Visit Information Visit Information Visit Type Progress Note Visit Start Time 13:41 Visit Stop Time 14:24 Total Visit Minutes 43 Visit Number 17 Evaluation Information Evaluation Date 04/29/20 Precautions Precautions Arthritis, Back & Neck pain since surgery. PT-OP-B Current Condition Start: 04/23/20 17:37 Freq: Status: Active Protocol: Document 06/24/20 13:41 LRN (Rec: 06/24/20 14:25 LRN [id number]) Current Condition History of Current Condition Onset Date 06/21/20 Current Complaints L knee limited ROM. History of Current Condition Pt is a 75 yo female who underwent a L TKA on 04/21/20 and is now returning after a L knee manipulation on 06/21/20. Pt has sensation in the L LE with no complaints of pain with pressure at the knee. Pt has sensation to touch, hot/ cold, pressure (decreased). Prior Treatments and Tests L TKA rehab 04/29/20 - 06/21/20. Developmental History Developmental History R Anterior cruciate and MCL surgery after ski fall (1976) followed by surgery to repair and was in a full leg cast for 6 weeks. Pt reports arthritis set and has had injections in the R knee since . Treatment Goals Patient/Caregiver Goals At minimal 120 deg's L knee active flexion. Prior Functional Status Baseline Function- ADL's Modified Independent Baseline Function- Mobility Independent Baseline Function- Gait Antalgic Gait, stiffness of R knee Baseline Function- Other In surgery: 140 deg's L knee flexion. Current Functional Impairments (Reported) Functional Limitations- ADL's Tired, from AM L knee manipulation. Functional Limitations- Mobility/Gait Ambs with an antalgic gait. Functional Limitations- Other L knee AROM: Sittin deg's. Supine active: 110 deg's; passive: 120 deg's. Personal Factors Other Personal Factors That May Effect Lives alone. Therapy/Recovery PT-OP-C Subjective Start: 04/23/20 17:37 Freq: Status: Active Protocol: Document 06/24/20 13:41 LRN (Rec: 06/24/20 14:25 LRN [id number]) OP-PT Subjective Patient Comments Patient Comments States MD got her knee to 140 deg's but he will be happy with 120 deg's. Pt reports feeling well, denies dizziness , nausea, lightheadedness. PT-OP-G Mobility & Gait Start: 04/23/20 17:37 Freq: Status: Active Protocol: Document 04/29/20 12:47 LRN (Rec: 04/29/20 14:04 LRN [id number]) OP Mobility Evaluation Bed Mobility Supine to and from Sit Independent OP Gait Assessment Gait Gait Assistance Required: Independent Able to Maintain Weight Bearing Status Yes During Gait Assistive Devices Assistive Device Standard Walker Orthotic/Prosthetic Devices or Brace: No Gait Deviations General Gait Pattern Antalgic,Decreased Stride Length,Flexed Trunk Stair Climbing Evaluation Comments Stair Climbing Comments Pt has no stairs at home. PT-OP-H Neuro Start: 04/23/20 17:37 Freq: Status: Active Protocol: Document 06/24/20 13:41 LRN (Rec: 06/24/20 14:25 LRN [id number]) Sensation Evaluation Gross Sensation Gross Sensation WNL Vital Signs Pulse On bike Pulse With Activity (bpm) 82 Immediately upon sitting from supine Pulse at Rest (bpm) 70 Blood Pressure ON bike Blood Pressure (90/60-120/80 mmHg) 106/72 Blood Pressure Source Automatic Cuff,Left Upper Extremity After ex Blood Pressure (90/60-120/80 mmHg) 101/72 PT-OP-J Posture/Palpation/Skin Start: 04/23/20 17:37 Freq: Status: Active Protocol: Document 04/29/20 12:47 LRN (Rec: 04/29/20 14:04 LRN [id number]) Palpation Assessment Location L knee Palpation Location Around L knee joint Palpation Findings Edema,Soft Tissue Tightness, Tenderness Palpation Details Increased temperature PT-OP-K Range of Motion Start: 04/23/20 17:37 Freq: Status: Active Protocol: Document 06/24/20 13:41 LRN (Rec: 06/24/20 14:25 LRN [id number]) Knee Goniometric Range of Motion Knee Supine R knee AROM Knee ROM WFL Yes Patient Position Supine Flexion Active (degrees) 131 Flexion Passive (degrees) 131 Supine L knee AROM Knee ROM WFL No Patient Position Supine Flexion Active (degrees) 110 Flexion Passive (degrees) 120 Extension Active (degrees) 4 Sitting L knee AROM Knee ROM WFL No Patient Position Sitting Flexion Active (degrees) 102 Sitting R knee ROM Patient Position Sitting Comments 0-118 PT-OP-M Strength Start: 04/23/20 17:37 Freq: Status: Active Protocol: Document 06/24/20 13:41 LRN (Rec: 06/24/20 17:29 LRN [id number]) Knee Strength Knee Manual Muscle Testing Right Flexion (S2) 5 Normal Extension (L3) 5 Normal Left Flexion (S2) 4+ Good+ Extension (L3) 4+ Good+ PT-OP-Q Treatments Start: 04/23/20 17:37 Freq: Status: Active Protocol: Document 06/24/20 13:41 LRN (Rec: 06/24/20 14:25 LRN [id number]) Cardio Equipment Bicycle (Upright) Duration (Minutes) 8 Resistance 0 Seat Position 3>2 Other Pt able to do full revolution with heel set more posterior on pedal. Therapeutic Exercises Supine Exercises Heel Slides Supine Exercise Name Heel slides with foot on/0ff plinth and on TBall Side left Equipment Used Strap & TBall Reps/Minutes 30' Comments Pt gradually elevated head throughout ex until able to sit at edge of plint Sitting Exercises Passive knee flex Sitting Exercise Name Passive knee flex stretch Side right Reps/Minutes 3' Heels slides ([facility]) Sitting Exercise Name Heels slides Side left Reps/Minutes 2' Comments Assisted knee flex PT-OP-R Modalities Start: 04/23/20 17:37 Freq: Status: Active Protocol: Document 06/17/20 12:43 LRN (Rec: 06/17/20 14:15 LRN [id number]) Hot Pack/Cold Pack Treatment Cold Pack Location L Knee, legs on bolster in flex Patient Position Hooklying Treatment Duration (minutes) 10 Patient Tolerance Fair PT-OP-T Assessment and Plan Start: 04/23/20 17:37 Freq: Status: Active Protocol: Document 06/24/20 13:41 LRN (Rec: 06/24/20 14:25 LRN [id number]) Physical Therapy Assessment Rehab Potential Rehabilitation Potential Excellent Evaluation Complexity Number of Personal Factors/Comorbidities 1-2 Number of Body Systems Impaired 4 or More Clinical Presentation at Evaluation Evolving Impairments Impairments Activity Tolerance,Edema, Functional Mobility,Gait,Pain, ROM,Soft Tissue Mobility, Strength Other Impairments Left LBP rated 3/10, Bilateral neck pain rated 3/10 Goals Five Impairment L knee pain (5-7/10) Short Term Goal (STG) Dec pain at rest to 4-5/10 STG Duration 07/04/20 Production Wood Craftsman Goal (LTG) Decr pain at rest to 0-1/10 and with walking activity to 2 -3/10. LTG Duration 08/16/20 Four Impairment Decreased L knee AROM (10-52 deg's) Short Term Goal (STG) Increase L knee AROM 0-120 deg 's. (AROM before surgery: 5- 100 deg's). (06/24/20: L knee (sup) AROM: flex is 110 deg's @ end of therapy; PROM 120 de'gs) STG Duration 06/21/20 (06/07/20: Progressing ) Fpc Goal (LTG) Increase L knee AROM 0-125 deg 's. LTG Duration 06/28/20 Three Impairment Pt unable to return to her prior pool exercise program, independently Short Term Goal (STG) Pt scar will be healed with good scar mobility and L knee AROM at least 5-95 deg's (05/31/20: Fair scar mobility. L knee AROM in sitting is 4- 85 deg's) STG Duration 06/28/20 (05/31/20: Progressing) Production Wood Craftsman Goal (LTG) Pt able to get into the local pool and do her prior ex program with modifications as needed. LTG Duration 08/16/20 Two Impairment Antalgic gait using a FWW for safety Short Term Goal (STG) Pt will be able to walk with a normal gait pattern without a walker. STG Duration 07/05/20 Production Wood Craftsman Goal (LTG) Pt will be able to walk a long distance of 6 blks or 2-3 miles with mild to no difficulty. LTG Duration 08/16/20 One Impairment Lacks appropriate self care HEP Fpc Goal (LTG) Pt will be independent in a self care HEP for continued L knee/hip exercises. HEP TO DATE: INSTRUCTIONS GIVEN: *Do's/Don 'ts of lymph massage. *LE self lymph massage. AROM: *Bilateral BKFO, * Sitting knee ext, *Supine Ankle pumps, and *written I/S for knee flex stretch f/b 10 active stretches. RECOMMENDED POOL EXERCISES: * Knee flexion exercises. LTG Duration 08/16/20 (06/07/20: Progressing) Assessment Summary Assessment Pt presents s/p L knee manipulation this morning. She presents with good awareness and is alert/ oriented x3. Coloration and mentation is normal. Her blood pressure is low, which she states is her normal. Pt tolerated treatment with ability to report when stretch was too much. She has no questions regarding her CPM machine, but I encouraged her to increase the flexion range to 125 deg's. L knee ROM at end of therapy (in supine) is AROM 110 deg's & PROM 120 deg' s. Extra time needed to assess pt's vitals during therapy due to having manipulation of L knee this morning under general anesthesia, pt showed no signs of distress during or after therapy. Pt will need further monitoring of vitals due to occasional post-therapy negative responses. Physical Therapy Plan Frequency and Duration Frequency of Treatment Daily x 2 wks >3x/wk Plan of Care Start Date 06/24/20 Plan of Care End Date 08/16/20 Therapeutic Interventions Therapeutic Interventions Gait Training,Home Exercise Program,Joint Mobilizations, Manual Therapy,Patient/ Caregiver Education,Self-Care/ Home Management,Soft Tissue Mobilization,Therapeutic Exercises Modalities Cold Pack/Ice Massage Other Therapeutic Interventions Independent self care aquatic exercise when pool opens. Next Visit Focus/Plan Next Note Type Treatment Note Next Visit Plan s/p L TKA (04/21/20) & Manipulation (06/24/20) for improving knee flex to at least 120 deg's or more. Monitor BP/HR during therapy. PT daily for 2 weeks per surgeon request, then therapy 2-3x/week as needed. L TKA rehabilitation. L knee ROM with flex stretch with close supervision because pt tends to allow overstretch f/b sympathetic response of nausea , shaking. STM and scar mob as needed. Cryotherapy/ Cryocuff and positioning to reduce edema and improve ROM ( as tolerated). Curb gait training & HEP progression when appropriate.
[2020-06-25 08:49] VITALS: BP 104/73; BP 106/79; BP 116/72; PULSE 67; PULSE 69; PULSE 76
--- NOTE | 2020-06-25 11:40 | PT.OTN ---
Current Diagnoses Unilateral primary osteoarthritis, left knee (06/25/20) Effusion, right knee (06/25/20) Pain in right knee (06/25/20) Muscle weakness (generalized) (06/25/20) Other abnormalities of gait and mobility (06/25/20) Physical Therapy Treatment Note PT-OP-A Visit Information Start: 04/23/20 17:37 Freq: Status: Active Protocol: Document 06/25/20 08:49 LRN (Rec: 06/25/20 11:38 LRN [id number]) Out-Patient Physical Therapy Visit Information Visit Information Visit Type Treatment Note Visit Start Time 10:33 Visit Stop Time 11:25 Total Visit Minutes 52 Visit Number 18 Evaluation Information Evaluation Date 04/29/20 Precautions Precautions Arthritis, Back & Neck pain since surgery. PT-OP-B Current Condition Start: 04/23/20 17:37 Freq: Status: Active Protocol: Document 06/24/20 13:41 LRN (Rec: 06/24/20 14:25 LRN [id number]) Current Condition History of Current Condition Onset Date 06/21/20 Current Complaints L knee limited ROM. History of Current Condition Pt is a 75 yo female who underwent a L TKA on 04/21/20 and is now returning after a L knee manipulation on 06/21/20. Pt has sensation in the L LE with no complaints of pain with pressure at the knee. Pt has sensation to touch, hot/ cold, pressure (decreased). Prior Treatments and Tests L TKA rehab 04/29/20 - 06/21/20. Developmental History Developmental History R Anterior cruciate and MCL surgery after ski fall (1976) followed by surgery to repair and was in a full leg cast for 6 weeks. Pt reports arthritis set and has had injections in the R knee since . Treatment Goals Patient/Caregiver Goals At minimal 120 deg's L knee active flexion. Prior Functional Status Baseline Function- ADL's Modified Independent Baseline Function- Mobility Independent Baseline Function- Gait Antalgic Gait, stiffness of R knee Baseline Function- Other In surgery: 140 deg's L knee flexion. Current Functional Impairments (Reported) Functional Limitations- ADL's Tired, from AM L knee manipulation. Functional Limitations- Mobility/Gait Ambs with an antalgic gait. Functional Limitations- Other L knee AROM: Sittin deg's. Supine active: 110 deg's; passive: 120 deg's. Personal Factors Other Personal Factors That May Effect Lives alone. Therapy/Recovery PT-OP-C Subjective Start: 04/23/20 17:37 Freq: Status: Active Protocol: Document 06/25/20 08:49 LRN (Rec: 06/25/20 11:38 LRN [id number]) OP-PT Subjective Patient Comments Patient Comments States her CPM is still at 120 deg's. She used it 2 hrs during the night. PT-OP-G Mobility & Gait Start: 04/23/20 17:37 Freq: Status: Active Protocol: Document 04/29/20 12:47 LRN (Rec: 04/29/20 14:04 LRN [id number]) OP Mobility Evaluation Bed Mobility Supine to and from Sit Independent OP Gait Assessment Gait Gait Assistance Required: Independent Able to Maintain Weight Bearing Status Yes During Gait Assistive Devices Assistive Device Standard Walker Orthotic/Prosthetic Devices or Brace: No Gait Deviations General Gait Pattern Antalgic,Decreased Stride Length,Flexed Trunk Stair Climbing Evaluation Comments Stair Climbing Comments Pt has no stairs at home. PT-OP-H Neuro Start: 04/23/20 17:37 Freq: Status: Active Protocol: Document 06/25/20 08:49 LRN (Rec: 06/25/20 11:38 LRN [id number]) Vital Signs Pulse On bike Pulse With Activity (bpm) 76 Immediately upon sitting from supine Pulse at Rest (bpm) 69 After ex Pulse With Activity (bpm) 67 Blood Pressure ON bike Blood Pressure (90/60-120/80 mmHg) 116/72 Blood Pressure Source Automatic Cuff,Left Upper Extremity Immediately upon sitting from supine Blood Pressure (90/60-120/80 mmHg) 106/79 Blood Pressure Source Automatic Cuff,Left Upper Extremity After ex Blood Pressure (90/60-120/80 mmHg) 104/73 Blood Pressure Source Automatic Cuff,Left Upper Extremity Comments Vital Signs Comments After ex BP/HR taken: Supine PT-OP-J Posture/Palpation/Skin Start: 04/23/20 17:37 Freq: Status: Active Protocol: Document 04/29/20 12:47 LRN (Rec: 04/29/20 14:04 LRN [id number]) Palpation Assessment Location L knee Palpation Location Around L knee joint Palpation Findings Edema,Soft Tissue Tightness, Tenderness Palpation Details Increased temperature PT-OP-K Range of Motion Start: 04/23/20 17:37 Freq: Status: Active Protocol: Document 06/25/20 08:49 LRN (Rec: 06/25/20 11:38 LRN [id number]) Knee Goniometric Range of Motion Knee Supine L knee AROM Knee ROM WFL No Patient Position Supine Flexion Active (degrees) 122 Flexion Passive (degrees) 125 Extension Passive (degrees) 0 Sitting L knee AROM Knee ROM WFL No Patient Position Sitting Flexion Active (degrees) 110 PT-OP-M Strength Start: 04/23/20 17:37 Freq: Status: Active Protocol: Document 06/24/20 13:41 LRN (Rec: 06/24/20 17:29 LRN [id number]) Knee Strength Knee Manual Muscle Testing Right Flexion (S2) 5 Normal Extension (L3) 5 Normal Left Flexion (S2) 4+ Good+ Extension (L3) 4+ Good+ PT-OP-Q Treatments Start: 04/23/20 17:37 Freq: Status: Active Protocol: Document 06/25/20 08:49 LRN (Rec: 06/25/20 11:38 LRN [id number]) Cardio Equipment Recumbent Stepper (Sci-Fit) Duration (Minutes) 6 Resistance 0 Seat Position 1 Other Extra time to determine position for max knee flex ( toes on heel rest) Recumbent Bicycle Duration (Minutes) 4 Other Max stretch position, DC'd due to lack of knee flex stretch Therapeutic Exercises Supine Exercises Heel Slides Supine Exercise Name Heel slides with foot on/0ff plinth and on TBall Side left Equipment Used Strap & TBall Reps/Minutes 20' Comments Pt gradually elevated head throughout ex until able to sit at edge of plint Prone Exercises Knee flex strengthening Prone Exercise Name Active knee flex Side bilateral Reps/Minutes 10x 3 with rest between sets Comments V cuing needed for breathing coordination Knee flex Prone Exercise Name Assisted flex stretch Side left Reps/Minutes 4' Comments V cuing needed for breathing coordination Sitting Exercises Passive knee flex Sitting Exercise Name Passive and active assisted knee flex stretch Side right Reps/Minutes 5' PT-OP-R Modalities Start: 04/23/20 17:37 Freq: Status: Active Protocol: Document 06/17/20 12:43 LRN (Rec: 06/17/20 14:15 LRN [id number]) Hot Pack/Cold Pack Treatment Cold Pack Location L Knee, legs on bolster in flex Patient Position Hooklying Treatment Duration (minutes) 10 Patient Tolerance Fair PT-OP-T Assessment and Plan Start: 04/23/20 17:37 Freq: Status: Active Protocol: Document 06/25/20 08:49 LRN (Rec: 06/25/20 11:38 LRN [id number]) Physical Therapy Assessment Goals Five Impairment L knee pain (5-7/10) Short Term Goal (STG) Dec pain at rest to 4-5/10 STG Duration 07/04/20 Relay Operator Goal (LTG) Decr pain at rest to 0-1/10 and with walking activity to 2 -3/10. LTG Duration 08/16/20 Four Impairment Decreased L knee AROM (10-52 deg's) Short Term Goal (STG) Increase L knee AROM 0-120 deg 's. (AROM before surgery: 5- 100 deg's). (06/24/20: L knee (sup) AROM: flex is 110 deg's @ end of therapy; PROM 120 de'gs) STG Duration 06/21/20 (06/25/20: MET GOAL) Relay Operator Goal (LTG) Increase L knee AROM 0-125 deg 's. LTG Duration 06/28/20 Three Impairment Pt unable to return to her prior pool exercise program, independently Short Term Goal (STG) Pt scar will be healed with good scar mobility and L knee AROM at least 5-95 deg's (06/25/20: Good scar mobility. L knee AROM in sitting is 4- 110 deg's) STG Duration 06/28/20 (05/31/20: MET GOAL) [facility]ci Goal (LTG) Pt able to get into the local pool and do her prior ex program with modifications as needed. LTG Duration 08/16/20 Two Impairment Antalgic gait using a FWW for safety Short Term Goal (STG) Pt will be able to walk with a normal gait pattern without a walker. (06/25/20: Slight antalgic gait noted) STG Duration 07/05/20 (06/25/20: Improving) Relay Operator Goal (LTG) Pt will be able to walk a long distance of 6 blks or 2-3 miles with mild to no difficulty. LTG Duration 08/16/20 One Impairment Lacks appropriate self care HEP Relay Operator Goal (LTG) Pt will be independent in a self care HEP for continued L knee/hip exercises. HEP TO DATE: INSTRUCTIONS GIVEN: *Do's/Don 'ts of lymph massage. *LE self lymph massage. AROM: *Bilateral BKFO, * Sitting knee ext, *Supine Ankle pumps, and *written I/S for knee flex stretch f/b 10 active stretches. RECOMMENDED POOL EXERCISES: * Knee flexion exercises. LTG Duration 08/16/20 (06/07/20: Progressing) Progress Towards Goals Progress Comments ROM STG #3 & #4 MET. After therapy (supine): L knee AROM is 122 deg's. L knee PROM is 125 deg's. STG #2: Gait mechanics improving Assessment Summary Assessment Pt showing good tolerance to therapy with pt needing verbal cuing to breathe through exercises. Pt L knee AROM/ PROM is improving (see ROM above). Pt is ready to try stair ambulation for training. Physical Therapy Plan Frequency and Duration Frequency of Treatment Daily x 2 wks >3x/wk Plan of Care Start Date 06/24/20 Plan of Care End Date 08/16/20 Next Visit Focus/Plan Next Note Type Treatment Note Next Visit Plan (Note: Pt insurance in [place] in 1 visit). Pt is s/p L TKA () & Manipulation (06/24/20 ) for improving knee flex to at least 120 deg's or more. Monitor BP/HR during therapy due to occasional sympathetic response to stretching/pain. PT daily for 2 weeks per surgeon request, then therapy 2-3x/week as needed. Focus therapy on L knee ROM with flex stretch with close supervision because pt tends to allow overstretch f/b sympathetic response of nausea , shaking of hands/UE's. STM and scar mob during stretching . End Cryotherapy/Cryocuff in semi-reclined position. Might try Stair/Curb gait training if ROM remains (L knee 120-125 deg's flex) or shows improvement.
--- NOTE | 2020-06-26 16:52 | PT.OTN ---
Current Diagnoses Unilateral primary osteoarthritis, left knee (06/26/20) Effusion, right knee (06/26/20) Pain in right knee (06/26/20) Muscle weakness (generalized) (06/26/20) Other abnormalities of gait and mobility (06/26/20) Physical Therapy Treatment Note PT-OP-A Visit Information Start: 04/23/20 17:37 Freq: Status: Active Protocol: Document 06/26/20 16:11 MA (Rec: 06/26/20 16:52 MA [id number]) Out-Patient Physical Therapy Visit Information Visit Information Visit Type Treatment Note Visit Start Time 16:00 Visit Stop Time 16:55 Total Visit Minutes 55 Visit Number 19 Number of QUALITY CONTROL ENGINEER Visits 1 Precautions Precautions Arthritis, Back & Neck pain since surgery. PT-OP-B Current Condition Start: 04/23/20 17:37 Freq: Status: Active Protocol: Document 06/24/20 13:41 LRN (Rec: 06/24/20 14:25 LRN [id number]) Current Condition History of Current Condition Onset Date 06/21/20 Current Complaints L knee limited ROM. History of Current Condition Pt is a 75 yo female who underwent a L TKA on 04/21/20 and is now returning after a L knee manipulation on 06/21/20. Pt has sensation in the L LE with no complaints of pain with pressure at the knee. Pt has sensation to touch, hot/ cold, pressure (decreased). Prior Treatments and Tests L TKA rehab 04/29/20 - 06/21/20. Developmental History Developmental History R Anterior cruciate and MCL surgery after ski fall (1976) followed by surgery to repair and was in a full leg cast for 6 weeks. Pt reports arthritis set and has had injections in the R knee since . Treatment Goals Patient/Caregiver Goals At minimal 120 deg's L knee active flexion. Prior Functional Status Baseline Function- ADL's Modified Independent Baseline Function- Mobility Independent Baseline Function- Gait Antalgic Gait, stiffness of R knee Baseline Function- Other In surgery: 140 deg's L knee flexion. Current Functional Impairments (Reported) Functional Limitations- ADL's Tired, from AM L knee manipulation. Functional Limitations- Mobility/Gait Ambs with an antalgic gait. Functional Limitations- Other L knee AROM: Sittin deg's. Supine active: 110 deg's; passive: 120 deg's. Personal Factors Other Personal Factors That May Effect Lives alone. Therapy/Recovery PT-OP-C Subjective Start: 04/23/20 17:37 Freq: Status: Active Protocol: Document 06/26/20 16:11 MA (Rec: 06/26/20 16:52 MA [id number]) OP-PT Subjective Patient Comments Patient Comments Pt found out CPM machine is not designed to go past 120 degrees. She will keep using machine just to keep her leg moving at night. PT-OP-G Mobility & Gait Start: 04/23/20 17:37 Freq: Status: Active Protocol: Document 04/29/20 12:47 LRN (Rec: 04/29/20 14:04 LRN [id number]) OP Mobility Evaluation Bed Mobility Supine to and from Sit Independent OP Gait Assessment Gait Gait Assistance Required: Independent Able to Maintain Weight Bearing Status Yes During Gait Assistive Devices Assistive Device Standard Walker Orthotic/Prosthetic Devices or Brace: No Gait Deviations General Gait Pattern Antalgic,Decreased Stride Length,Flexed Trunk Stair Climbing Evaluation Comments Stair Climbing Comments Pt has no stairs at home. PT-OP-H Neuro Start: 04/23/20 17:37 Freq: Status: Active Protocol: Document 06/25/20 08:49 LRN (Rec: 06/25/20 11:38 LRN [id number]) Vital Signs Pulse On bike Pulse With Activity (bpm) 76 Immediately upon sitting from supine Pulse at Rest (bpm) 69 After ex Pulse With Activity (bpm) 67 Blood Pressure ON bike Blood Pressure (90/60-120/80 mmHg) 116/72 Blood Pressure Source Automatic Cuff,Left Upper Extremity Immediately upon sitting from supine Blood Pressure (90/60-120/80 mmHg) 106/79 Blood Pressure Source Automatic Cuff,Left Upper Extremity After ex Blood Pressure (90/60-120/80 mmHg) 104/73 Blood Pressure Source Automatic Cuff,Left Upper Extremity Comments Vital Signs Comments After ex BP/HR taken: Supine PT-OP-J Posture/Palpation/Skin Start: 04/23/20 17:37 Freq: Status: Active Protocol: Document 04/29/20 12:47 LRN (Rec: 04/29/20 14:04 LRN [id number]) Palpation Assessment Location L knee Palpation Location Around L knee joint Palpation Findings Edema,Soft Tissue Tightness, Tenderness Palpation Details Increased temperature PT-OP-K Range of Motion Start: 04/23/20 17:37 Freq: Status: Active Protocol: Document 06/25/20 08:49 LRN (Rec: 06/25/20 11:38 LRN [id number]) Knee Goniometric Range of Motion Knee Supine L knee AROM Knee ROM WFL No Patient Position Supine Flexion Active (degrees) 122 Flexion Passive (degrees) 125 Extension Passive (degrees) 0 Sitting L knee AROM Knee ROM WFL No Patient Position Sitting Flexion Active (degrees) 110 PT-OP-M Strength Start: 04/23/20 17:37 Freq: Status: Active Protocol: Document 06/24/20 13:41 LRN (Rec: 06/24/20 17:29 LRN [id number]) Knee Strength Knee Manual Muscle Testing Right Flexion (S2) 5 Normal Extension (L3) 5 Normal Left Flexion (S2) 4+ Good+ Extension (L3) 4+ Good+ PT-OP-Q Treatments Start: 04/23/20 17:37 Freq: Status: Active Protocol: Document 06/26/20 16:11 MA (Rec: 06/26/20 16:52 MA [id number]) Cardio Equipment Recumbent Stepper (Sci-Fit) Duration (Minutes) 6 Resistance 0 Seat Position 1 Other Extra time to determine position for max knee flex ( toes on heel rest) Recumbent Bicycle Duration (Minutes) 4 Other Max stretch position, DC'd due to lack of knee flex stretch Therapeutic Exercises Supine Exercises Heel Slides Supine Exercise Name Heel slides with foot on/0ff plinth and on TBall Side left Equipment Used Strap & TBall Reps/Minutes 20' Comments Pt gradually elevated head throughout ex until able to sit at edge of plint Prone Exercises Knee flex strengthening Prone Exercise Name Active knee flex Side bilateral Reps/Minutes 10x 3 with rest between sets Comments V cuing needed for breathing coordination Knee flex Prone Exercise Name Assisted flex stretch Side left Reps/Minutes 4' Comments V cuing needed for breathing coordination Sitting Exercises Passive knee flex Sitting Exercise Name Passive and active assisted knee flex stretch Side right Reps/Minutes 5' Heels slides ([facility]) Sitting Exercise Name Heels slides Side left Reps/Minutes 2' Comments Assisted knee flex LAQ Sitting Exercise Name Knee ext Side left Reps/Minutes x5 Manual Therapy Treatment Soft Tissue Mobilization L knee scar Body Location Anterior L knee & scar Mobilization Type Myofascial Release,Sustained Pressure Intensity/Depth Moderate Body Position Supine Comments During flexion stretch and extension PT-OP-R Modalities Start: 04/23/20 17:37 Freq: Status: Active Protocol: Document 06/17/20 12:43 LRN (Rec: 06/17/20 14:15 LRN [id number]) Hot Pack/Cold Pack Treatment Cold Pack Location L Knee, legs on bolster in flex Patient Position Hooklying Treatment Duration (minutes) 10 Patient Tolerance Fair PT-OP-T Assessment and Plan Start: 04/23/20 17:37 Freq: Status: Active Protocol: Document 06/26/20 16:11 MA (Rec: 06/26/20 16:52 MA [id number]) Physical Therapy Assessment Goals Five Impairment L knee pain (5-7/10) Short Term Goal (STG) Dec pain at rest to 4-5/10 STG Duration 07/04/20 Detention Goal (LTG) Decr pain at rest to 0-1/10 and with walking activity to 2 -3/10. LTG Duration 08/16/20 Four Impairment Decreased L knee AROM (10-52 deg's) Short Term Goal (STG) Increase L knee AROM 0-120 deg 's. (AROM before surgery: 5- 100 deg's). (06/24/20: L knee (sup) AROM: flex is 110 deg's @ end of therapy; PROM 120 de'gs) STG Duration 06/21/20 (06/25/20: MET GOAL) Sterilizer Operator Goal (LTG) Increase L knee AROM 0-125 deg 's. LTG Duration 06/28/20 Three Impairment Pt unable to return to her prior pool exercise program, independently Short Term Goal (STG) Pt scar will be healed with good scar mobility and L knee AROM at least 5-95 deg's (06/25/20: Good scar mobility. L knee AROM in sitting is 4- 110 deg's) STG Duration 06/28/20 (05/31/20: MET GOAL) Sterilizer Operator Goal (LTG) Pt able to get into the local pool and do her prior ex program with modifications as needed. LTG Duration 08/16/20 Two Impairment Antalgic gait using a FWW for safety Short Term Goal (STG) Pt will be able to walk with a normal gait pattern without a walker. (06/25/20: Slight antalgic gait noted) STG Duration 07/05/20 (06/25/20: Improving) Detention Goal (LTG) Pt will be able to walk a long distance of 6 blks or 2-3 miles with mild to no difficulty. LTG Duration 08/16/20 One Impairment Lacks appropriate self care HEP Detention Goal (LTG) Pt will be independent in a self care HEP for continued L knee/hip exercises. HEP TO DATE: INSTRUCTIONS GIVEN: *Do's/Don 'ts of lymph massage. *LE self lymph massage. AROM: *Bilateral BKFO, * Sitting knee ext, *Supine Ankle pumps, and *written I/S for knee flex stretch f/b 10 active stretches. RECOMMENDED POOL EXERCISES: * Knee flexion exercises. LTG Duration 08/16/20 (06/07/20: Progressing) Assessment Summary Assessment Josefa arrived with slightly elevated BP compared to pt's norm with reading at 120/68. She had no issues with dizziness throughout session. Pt is able to self correct when she is holding her breathe throughout session today. Her AAROM L knee flexion was 119 degrees at the beginning of the session and 125 degrees at end. Will begin stair training with pt tomorrow. Physical Therapy Plan Frequency and Duration Frequency of Treatment Daily x 2 wks >3x/wk Plan of Care Start Date 06/24/20 Plan of Care End Date 08/16/20 Therapeutic Interventions Therapeutic Interventions Gait Training,Home Exercise Program,Joint Mobilizations, Manual Therapy,Patient/ Caregiver Education,Self-Care/ Home Management,Soft Tissue Mobilization,Therapeutic Exercises Modalities Cold Pack/Ice Massage Other Therapeutic Interventions Independent self care aquatic exercise when pool opens. Next Visit Focus/Plan Next Note Type Treatment Note Next Visit Plan *Begin stair training* (Note: Pt insurance in [place] in 1 visit). Pt is s/p L TKA () & Manipulation (06/24/20 ) for improving knee flex to at least 120 deg's or more. Monitor BP/HR during therapy due to occasional sympathetic response to stretching/pain. PT daily for 2 weeks per surgeon request, then therapy 2-3x/week as needed. Focus therapy on L knee ROM with flex stretch with close supervision because pt tends to allow overstretch f/b sympathetic response of nausea , shaking of hands/UE's. STM and scar mob during stretching . End Cryotherapy/Cryocuff in semi-reclined position. Might try Stair/Curb gait training if ROM remains (L knee 120-125 deg's flex) or shows improvement.
[2020-06-27 13:30] VITALS: BP 115/76; BP 121/74; BP 127/87; BP 98/71; PULSE 66; PULSE 69; PULSE 79
--- NOTE | 2020-06-27 16:24 | PT.OTN ---
Current Diagnoses Unilateral primary osteoarthritis, left knee (06/27/20) Effusion, right knee (06/27/20) Pain in right knee (06/27/20) Muscle weakness (generalized) (06/27/20) Other abnormalities of gait and mobility (06/27/20) Physical Therapy Treatment Note PT-OP-A Visit Information Start: 04/23/20 17:37 Freq: Status: Active Protocol: Document 06/27/20 13:30 LRN (Rec: 06/27/20 14:22 LRN [id number]) Out-Patient Physical Therapy Visit Information Visit Information Visit Type Treatment Note Visit Start Time 13:30 Visit Stop Time 14:26 Total Visit Minutes 56 Visit Number 20 Precautions Precautions Arthritis, Back & Neck pain since surgery. PT-OP-B Current Condition Start: 04/23/20 17:37 Freq: Status: Active Protocol: Document 06/24/20 13:41 LRN (Rec: 06/24/20 14:25 LRN [id number]) Current Condition History of Current Condition Onset Date 06/21/20 Current Complaints L knee limited ROM. History of Current Condition Pt is a 75 yo female who underwent a L TKA on 04/21/20 and is now returning after a L knee manipulation on 06/21/20. Pt has sensation in the L LE with no complaints of pain with pressure at the knee. Pt has sensation to touch, hot/ cold, pressure (decreased). Prior Treatments and Tests L TKA rehab 04/29/20 - 06/21/20. Developmental History Developmental History R Anterior cruciate and MCL surgery after ski fall (1976) followed by surgery to repair and was in a full leg cast for 6 weeks. Pt reports arthritis set and has had injections in the R knee since . Treatment Goals Patient/Caregiver Goals At minimal 120 deg's L knee active flexion. Prior Functional Status Baseline Function- ADL's Modified Independent Baseline Function- Mobility Independent Baseline Function- Gait Antalgic Gait, stiffness of R knee Baseline Function- Other In surgery: 140 deg's L knee flexion. Current Functional Impairments (Reported) Functional Limitations- ADL's Tired, from AM L knee manipulation. Functional Limitations- Mobility/Gait Ambs with an antalgic gait. Functional Limitations- Other L knee AROM: Sittin deg's. Supine active: 110 deg's; passive: 120 deg's. Personal Factors Other Personal Factors That May Effect Lives alone. Therapy/Recovery PT-OP-C Subjective Start: 04/23/20 17:37 Freq: Status: Active Protocol: Document 06/27/20 13:30 LRN (Rec: 06/27/20 14:22 LRN [id number]) OP-PT Subjective Patient Comments Patient Comments States the CPM machine is at its max at 120 deg's. PT-OP-G Mobility & Gait Start: 04/23/20 17:37 Freq: Status: Active Protocol: Document 04/29/20 12:47 LRN (Rec: 04/29/20 14:04 LRN [id number]) OP Mobility Evaluation Bed Mobility Supine to and from Sit Independent OP Gait Assessment Gait Gait Assistance Required: Independent Able to Maintain Weight Bearing Status Yes During Gait Assistive Devices Assistive Device Standard Walker Orthotic/Prosthetic Devices or Brace: No Gait Deviations General Gait Pattern Antalgic,Decreased Stride Length,Flexed Trunk Stair Climbing Evaluation Comments Stair Climbing Comments Pt has no stairs at home. PT-OP-H Neuro Start: 04/23/20 17:37 Freq: Status: Active Protocol: Document 06/27/20 13:30 LRN (Rec: 06/27/20 14:22 LRN [id number]) Vital Signs Pulse Post PT after sitting rest Pulse at Rest (bpm) 69 On bike Pulse With Activity (bpm) 79 Immediately upon sitting from supine Pulse at Rest (bpm) 66 After ex Pulse With Activity (bpm) 66 Blood Pressure Post PT after sitting rest Blood Pressure (90/60-120/80 mmHg) 115/76 Blood Pressure Source Automatic Cuff,Left Upper Extremity ON bike Blood Pressure (90/60-120/80 mmHg) 127/87 H Immediately upon sitting from supine Blood Pressure (90/60-120/80 mmHg) 98/71 Blood Pressure Source Automatic Cuff,Left Upper Extremity After ex Blood Pressure (90/60-120/80 mmHg) 121/74 H Blood Pressure Source Automatic Cuff,Manual Cuff PT-OP-J Posture/Palpation/Skin Start: 04/23/20 17:37 Freq: Status: Active Protocol: Document 04/29/20 12:47 LRN (Rec: 04/29/20 14:04 LRN [id number]) Palpation Assessment Location L knee Palpation Location Around L knee joint Palpation Findings Edema,Soft Tissue Tightness, Tenderness Palpation Details Increased temperature PT-OP-K Range of Motion Start: 04/23/20 17:37 Freq: Status: Active Protocol: Document 06/27/20 13:30 LRN (Rec: 06/27/20 14:22 LRN [id number]) Knee Goniometric Range of Motion Knee Supine L knee AROM Knee ROM WFL No Patient Position Supine Flexion Active (degrees) 120 Flexion Passive (degrees) 125 Sitting L knee AROM Knee ROM WFL No Patient Position Sitting Flexion Passive (degrees) 119 Comments Pt on Sci-fit. PT-OP-M Strength Start: 04/23/20 17:37 Freq: Status: Active Protocol: Document 06/24/20 13:41 LRN (Rec: 06/24/20 17:29 LRN [id number]) Knee Strength Knee Manual Muscle Testing Right Flexion (S2) 5 Normal Extension (L3) 5 Normal Left Flexion (S2) 4+ Good+ Extension (L3) 4+ Good+ PT-OP-Q Treatments Start: 04/23/20 17:37 Freq: Status: Active Protocol: Document 06/27/20 13:30 LRN (Rec: 06/27/20 14:22 LRN [id number]) Cardio Equipment Recumbent Stepper (Sci-Fit) Duration (Minutes) 10 Resistance 0 Seat Position 1 Other Back support for greater flex at L knee Therapeutic Exercises Supine Exercises Quad/Iliopsoas stretch Supine Exercise Name Leg over table Side left Reps/Minutes 4' Heel Slides Supine Exercise Name Heel slides w/foot on/0ff plinth & on TBall Side left Equipment Used Strap & TBall Reps/Minutes 20' Comments Pt gradually elevated head throughout ex until able to sit at edge of plint Prone Exercises Knee flex strengthening Prone Exercise Name Active knee flex Side bilateral Reps/Minutes 10x 3 with rest between sets Comments V cuing needed for breathing coordination Knee flex Prone Exercise Name Assisted flex stretch Side left Reps/Minutes 4' Comments V cuing needed for breathing coordination Self-Care/Home Management Treatment Education Patient Education Home Exercise Program Activities Self-Care/Home Management Activities Verbally I/S pt in Iliopsoas/ Quad stretch. PT-OP-R Modalities Start: 04/23/20 17:37 Freq: Status: Active Protocol: Document 06/17/20 12:43 LRN (Rec: 06/17/20 14:15 LRN [id number]) Hot Pack/Cold Pack Treatment Cold Pack Location L Knee, legs on bolster in flex Patient Position Hooklying Treatment Duration (minutes) 10 Patient Tolerance Fair PT-OP-T Assessment and Plan Start: 04/23/20 17:37 Freq: Status: Active Protocol: Document 06/27/20 13:30 LRN (Rec: 06/27/20 14:22 LRN [id number]) Physical Therapy Assessment Goals Five Impairment L knee pain (5-7/10) Short Term Goal (STG) Dec pain at rest to 4-5/10. (06/27/20: Pain at rest is 0/ 10) STG Duration 07/04/20 (06/27/20: MET GOAL) Speech And Language Specialist Goal (LTG) Decr pain at rest to 0-1/10 and with walking activity to 2 -3/10. LTG Duration 08/16/20 Four Impairment Decreased L knee AROM (10-52 deg's) Short Term Goal (STG) Increase L knee AROM 0-120 deg 's. (AROM before surgery: 5- 100 deg's). (06/27/20: L knee (sup) AROM: flex is 120 deg's @ end of therapy; PROM 125 de'gs) STG Duration 06/21/20 (06/25/20: MET GOAL) Speech And Language Specialist Goal (LTG) Increase L knee AROM 0-125 deg 's. LTG Duration 06/28/20 Three Impairment Pt unable to return to her prior pool exercise program, independently Short Term Goal (STG) Pt scar will be healed with good scar mobility and L knee AROM at least 5-95 deg's (06/25/20: Good scar mobility. L knee AROM in sitting is 4- 110 deg's) STG Duration 06/28/20 (05/31/20: MET GOAL) Usp Goal (LTG) Pt able to get into the local pool and do her prior ex program with modifications as needed. LTG Duration 08/16/20 Two Impairment Antalgic gait using a FWW for safety Short Term Goal (STG) Pt will be able to walk with a normal gait pattern without a walker. (06/27/20: Very slight antalgic gait noted) STG Duration 07/05/20 (4/22/21: MET GOAL) Usp Goal (LTG) Pt will be able to walk a long distance of 6 blks or 2-3 miles with mild to no difficulty. LTG Duration 08/16/20 One Impairment Lacks appropriate self care HEP Speech And Language Specialist Goal (LTG) Pt will be independent in a self care HEP for continued L knee/hip exercises. HEP TO DATE: INSTRUCTIONS GIVEN: *Do's/Don 'ts of lymph massage. *LE self lymph massage. AROM: *Bilateral BKFO, * Sitting knee ext, *Supine Ankle pumps, and *written I/S for knee flex stretch f/b 10 active stretches. RECOMMENDED POOL EXERCISES: * Knee flexion exercises. LTG Duration 08/16/20 (06/27/20: Progressing) Progress Towards Goals Progress Comments STG #5 (Reduced pain goal) MET. Assessment Summary Assessment L knee AROM is 120 deg's flex and PROM is 125 deg's flex. Pt gait appears more normal, with miniimal antalgic gait noted. Pt showing good tolerance to therapy without symptoms of shaking at end of therapy. Physical Therapy Plan Frequency and Duration Frequency of Treatment Daily x 2 wks >3x/wk Plan of Care Start Date 06/24/20 Plan of Care End Date 08/16/20 Next Visit Focus/Plan Next Note Type Treatment Note Next Visit Plan Begin Stair/Curb gait training if ROM remains (L knee 120- 125 deg's flex). Add to HEP: Iliopsoas/quad stretch. Assess pain goal #5. (Note: Pt insurance in [place]). Pt is s/p L TKA (04/21/20) & Manipulation (06/24/20) for improving knee flex to at least 120 deg's or more. Monitor BP/HR during therapy due to occasional sympathetic response to stretching/pain. PT daily for 1 more week per surgeon request, then therapy 2-3x/week as needed. Focus therapy on L knee ROM with flex stretch with close supervision because pt tends to allow overstretch f/b sympathetic response of nausea , shaking of hands/UE's. STM and scar mob during stretching . End Cryotherapy/Cryocuff in semi-reclined position.
[2020-06-28 13:32] VITALS: BP 116/82; BP 119/78; PULSE 69; PULSE 81
--- NOTE | 2020-06-28 16:39 | PT.OTN ---
Current Diagnoses Unilateral primary osteoarthritis, left knee (06/28/20) Effusion, right knee (06/28/20) Pain in right knee (06/28/20) Muscle weakness (generalized) (06/28/20) Other abnormalities of gait and mobility (06/28/20) Physical Therapy Treatment Note PT-OP-A Visit Information Start: 04/23/20 17:37 Freq: Status: Active Protocol: Document 06/28/20 13:32 LRN (Rec: 06/28/20 14:21 LRN [id number]) Out-Patient Physical Therapy Visit Information Visit Information Visit Type Treatment Note Visit Start Time 13:33 Visit Stop Time 14:23 Total Visit Minutes 50 Visit Number 21 Evaluation Information Evaluation Date 04/29/20 Precautions Precautions Arthritis, Back & Neck pain since surgery. PT-OP-B Current Condition Start: 04/23/20 17:37 Freq: Status: Active Protocol: Document 06/24/20 13:41 LRN (Rec: 06/24/20 14:25 LRN [id number]) Current Condition History of Current Condition Onset Date 06/21/20 Current Complaints L knee limited ROM. History of Current Condition Pt is a 75 yo female who underwent a L TKA on 04/21/20 and is now returning after a L knee manipulation on 06/21/20. Pt has sensation in the L LE with no complaints of pain with pressure at the knee. Pt has sensation to touch, hot/ cold, pressure (decreased). Prior Treatments and Tests L TKA rehab 04/29/20 - 06/21/20. Developmental History Developmental History R Anterior cruciate and MCL surgery after ski fall (1976) followed by surgery to repair and was in a full leg cast for 6 weeks. Pt reports arthritis set and has had injections in the R knee since . Treatment Goals Patient/Caregiver Goals At minimal 120 deg's L knee active flexion. Prior Functional Status Baseline Function- ADL's Modified Independent Baseline Function- Mobility Independent Baseline Function- Gait Antalgic Gait, stiffness of R knee Baseline Function- Other In surgery: 140 deg's L knee flexion. Current Functional Impairments (Reported) Functional Limitations- ADL's Tired, from AM L knee manipulation. Functional Limitations- Mobility/Gait Ambs with an antalgic gait. Functional Limitations- Other L knee AROM: Sittin deg's. Supine active: 110 deg's; passive: 120 deg's. Personal Factors Other Personal Factors That May Effect Lives alone. Therapy/Recovery PT-OP-C Subjective Start: 04/23/20 17:37 Freq: Status: Active Protocol: Document 06/28/20 13:32 LRN (Rec: 06/28/20 14:21 LRN [id number]) OP-PT Subjective Patient Comments Patient Comments Feeling stiff with bending, didn't sleep well last night and had to take dog to vet due to bleeding. PT-OP-G Mobility & Gait Start: 04/23/20 17:37 Freq: Status: Active Protocol: Document 04/29/20 12:47 LRN (Rec: 04/29/20 14:04 LRN [id number]) OP Mobility Evaluation Bed Mobility Supine to and from Sit Independent OP Gait Assessment Gait Gait Assistance Required: Independent Able to Maintain Weight Bearing Status Yes During Gait Assistive Devices Assistive Device Standard Walker Orthotic/Prosthetic Devices or Brace: No Gait Deviations General Gait Pattern Antalgic,Decreased Stride Length,Flexed Trunk Stair Climbing Evaluation Comments Stair Climbing Comments Pt has no stairs at home. PT-OP-H Neuro Start: 04/23/20 17:37 Freq: Status: Active Protocol: Document 06/28/20 13:32 LRN (Rec: 06/28/20 14:21 LRN [id number]) Vital Signs Pulse On bike Pulse With Activity (bpm) 69 Immediately upon sitting from supine Pulse at Rest (bpm) 81 Blood Pressure ON bike Blood Pressure (90/60-120/80 mmHg) 116/82 H Immediately upon sitting from supine Blood Pressure (90/60-120/80 mmHg) 119/78 Blood Pressure Source Automatic Cuff,Left Upper Extremity PT-OP-J Posture/Palpation/Skin Start: 04/23/20 17:37 Freq: Status: Active Protocol: Document 04/29/20 12:47 LRN (Rec: 04/29/20 14:04 LRN [id number]) Palpation Assessment Location L knee Palpation Location Around L knee joint Palpation Findings Edema,Soft Tissue Tightness, Tenderness Palpation Details Increased temperature PT-OP-K Range of Motion Start: 04/23/20 17:37 Freq: Status: Active Protocol: Document 06/28/20 13:32 LRN (Rec: 06/28/20 14:21 LRN [id number]) Knee Goniometric Range of Motion Knee Supine L knee AROM Knee ROM WFL No Patient Position Supine Flexion Active (degrees) 122 Flexion Passive (degrees) 127 Sitting L knee AROM Knee ROM WFL No Patient Position Sitting Flexion Passive (degrees) 118 Comments Pt on Sci-fit. PT-OP-M Strength Start: 04/23/20 17:37 Freq: Status: Active Protocol: Document 06/24/20 13:41 LRN (Rec: 06/24/20 17:29 LRN [id number]) Knee Strength Knee Manual Muscle Testing Right Flexion (S2) 5 Normal Extension (L3) 5 Normal Left Flexion (S2) 4+ Good+ Extension (L3) 4+ Good+ PT-OP-Q Treatments Start: 04/23/20 17:37 Freq: Status: Active Protocol: Document 06/28/20 13:32 LRN (Rec: 06/28/20 14:21 LRN [id number]) Therapeutic Exercises Supine Exercises Heel Slides Supine Exercise Name Heel slides w/foot on/0ff plinth & on TBall Side left Equipment Used Strap & TBall Reps/Minutes 20' Comments Pt gradually elevated head throughout ex until able to sit at edge of plint Prone Exercises Knee flex strengthening Prone Exercise Name Active assisted knee flex Side bilateral Reps/Minutes 4' Comments V cuing needed for breathing Knee flex Prone Exercise Name Passive flex stretch Side left Reps/Minutes 6' Comments V cuing needed for breathing coordination Gait Training Gait Activity Stairs Description Ascending, primarily descending stair training Device Used railing Level of Assistance SBA Distance/Duration 8' Treatment Focus Forward toe placement on descent PT-OP-R Modalities Start: 04/23/20 17:37 Freq: Status: Active Protocol: Document 06/28/20 13:32 LRN (Rec: 06/28/20 14:21 LRN [id number]) Hot Pack/Cold Pack Treatment Cold Pack Location L knee Patient Position Hooklying Treatment Duration (minutes) 10 PT-OP-T Assessment and Plan Start: 04/23/20 17:37 Freq: Status: Active Protocol: Document 06/28/20 13:32 LRN (Rec: 06/28/20 14:21 LRN [id number]) Physical Therapy Assessment Goals Five Impairment L knee pain (5-7/10) Short Term Goal (STG) Dec pain at rest to 4-5/10. (06/27/20: Pain at rest is 0/ 10) STG Duration 07/04/20 (06/27/20: MET GOAL) Media Producer Goal (LTG) Decr pain at rest to 0-1/10 and with walking activity to 2 -3/10. LTG Duration 08/16/20 Four Impairment Decreased L knee AROM (10-52 deg's) Short Term Goal (STG) Increase L knee AROM 0-120 deg 's. (AROM before surgery: 5- 100 deg's). (06/27/20: L knee (sup) AROM: flex is 120 deg's @ end of therapy; PROM 125 de'gs) STG Duration 06/21/20 (06/25/20: MET GOAL) Halfway Goal (LTG) Increase L knee AROM 0-125 deg 's. LTG Duration 06/28/20 Three Impairment Pt unable to return to her prior pool exercise program, independently Short Term Goal (STG) Pt scar will be healed with good scar mobility and L knee AROM at least 5-95 deg's (06/25/20: Good scar mobility. L knee AROM in sitting is 4- 110 deg's) STG Duration 06/28/20 (05/31/20: MET GOAL) Halfway Goal (LTG) Pt able to get into the local pool and do her prior ex program with modifications as needed. LTG Duration 08/16/20 Two Impairment Antalgic gait using a FWW for safety Short Term Goal (STG) Pt will be able to walk with a normal gait pattern without a walker. (06/27/20: Very slight antalgic gait noted) STG Duration 07/05/20 (06/27/20: MET GOAL) Media Producer Goal (LTG) Pt will be able to walk a long distance of 6 blks or 2-3 miles with mild to no difficulty. LTG Duration 08/16/20 One Impairment Lacks appropriate self care HEP Halfway Goal (LTG) Pt will be independent in a self care HEP for continued L knee/hip exercises. HEP TO DATE: INSTRUCTIONS GIVEN: *Do's/Don 'ts of lymph massage. *LE self lymph massage. AROM: *Bilateral BKFO, * Sitting knee ext, *Supine Ankle pumps, and *written I/S for knee flex stretch f/b 10 active stretches. RECOMMENDED POOL EXERCISES: * Knee flexion exercises. LTG Duration 08/16/20 (06/27/20: Progressing) Progress Towards Goals Progress Comments After treatment: L knee AROM (sup) 122 deg's. L knee PROM (sup) 127 deg's Assessment Summary Assessment L knee ROM improved by 2 deg's actively and passively. No signs of system stress during therapy with pt able to change positions (sup>stand) without difficulty. Physical Therapy Plan Frequency and Duration Frequency of Treatment Daily x 2 wks >3x/wk Plan of Care Start Date 06/24/20 Plan of Care End Date 08/16/20 Next Visit Focus/Plan Next Note Type Treatment Note Next Visit Plan Add to HEP: Iliopsoas/quad stretch. Assess pain goal #5. (Note: Pt insurance in [place]). Pt is s/p L TKA (04/21/20) & Manipulation (06/24/20) for improving knee flex to at least 120 deg's or more. Monitor BP/HR during therapy due to occasional sympathetic response to stretching/pain. PT daily for 1 more week per surgeon request, then therapy 2-3x/week as needed. Focus therapy on L knee ROM with flex stretch with close supervision because pt tends to allow overstretch f/b sympathetic response of nausea , shaking of hands/UE's. STM and scar mob during stretching . End Cryotherapy/Cryocuff in semi-reclined position.
[2020-07-01 10:37] VITALS: BP 106/76; BP 113/82; PULSE 68; PULSE 83
--- NOTE | 2020-07-01 12:08 | PT.OTN ---
Current Diagnoses Unilateral primary osteoarthritis, left knee (07/01/20) Effusion, right knee (07/01/20) Pain in right knee (07/01/20) Muscle weakness (generalized) (07/01/20) Other abnormalities of gait and mobility (07/01/20) Physical Therapy Treatment Note PT-OP-A Visit Information Start: 04/23/20 17:37 Freq: Status: Active Protocol: Document 07/01/20 10:37 LRN (Rec: 07/01/20 11:21 LRN [id number]) Out-Patient Physical Therapy Visit Information Visit Information Visit Type Treatment Note Visit Start Time 10:37 Visit Stop Time 11:25 Total Visit Minutes 48 Visit Number 22 Evaluation Information Evaluation Date 04/29/20 Precautions Precautions Arthritis, Back & Neck pain since surgery. PT-OP-B Current Condition Start: 04/23/20 17:37 Freq: Status: Active Protocol: Document 06/24/20 13:41 LRN (Rec: 06/24/20 14:25 LRN [id number]) Current Condition History of Current Condition Onset Date 06/21/20 Current Complaints L knee limited ROM. History of Current Condition Pt is a 75 yo female who underwent a L TKA on 04/21/20 and is now returning after a L knee manipulation on 06/21/20. Pt has sensation in the L LE with no complaints of pain with pressure at the knee. Pt has sensation to touch, hot/ cold, pressure (decreased). Prior Treatments and Tests L TKA rehab 04/29/20 - 06/21/20. Developmental History Developmental History R Anterior cruciate and MCL surgery after ski fall (1976) followed by surgery to repair and was in a full leg cast for 6 weeks. Pt reports arthritis set and has had injections in the R knee since . Treatment Goals Patient/Caregiver Goals At minimal 120 deg's L knee active flexion. Prior Functional Status Baseline Function- ADL's Modified Independent Baseline Function- Mobility Independent Baseline Function- Gait Antalgic Gait, stiffness of R knee Baseline Function- Other In surgery: 140 deg's L knee flexion. Current Functional Impairments (Reported) Functional Limitations- ADL's Tired, from AM L knee manipulation. Functional Limitations- Mobility/Gait Ambs with an antalgic gait. Functional Limitations- Other L knee AROM: Sittin deg's. Supine active: 110 deg's; passive: 120 deg's. Personal Factors Other Personal Factors That May Effect Lives alone. Therapy/Recovery PT-OP-C Subjective Start: 04/23/20 17:37 Freq: Status: Active Protocol: Document 07/01/20 10:37 LRN (Rec: 07/01/20 11:21 LRN [id number]) OP-PT Subjective Patient Comments Patient Comments States she is feeling insecure on how well she did over the weekend. Thinks she has lost ground. Pain at rest and with walking is 0-1/10 PT-OP-G Mobility & Gait Start: 04/23/20 17:37 Freq: Status: Active Protocol: Document 04/29/20 12:47 LRN (Rec: 04/29/20 14:04 LRN [id number]) OP Mobility Evaluation Bed Mobility Supine to and from Sit Independent OP Gait Assessment Gait Gait Assistance Required: Independent Able to Maintain Weight Bearing Status Yes During Gait Assistive Devices Assistive Device Standard Walker Orthotic/Prosthetic Devices or Brace: No Gait Deviations General Gait Pattern Antalgic,Decreased Stride Length,Flexed Trunk Stair Climbing Evaluation Comments Stair Climbing Comments Pt has no stairs at home. PT-OP-H Neuro Start: 04/23/20 17:37 Freq: Status: Active Protocol: Document 07/01/20 10:37 LRN (Rec: 07/01/20 11:21 LRN [id number]) Vital Signs Pulse Resting Pulse at Rest (bpm) 83 Immediately upon sitting from supine Pulse at Rest (bpm) 68 Pulse Assessment Method Pulse Ox/Monitor Blood Pressure Resting Blood Pressure (90/60-120/80 mmHg) 106/76 Blood Pressure Source Manual Cuff,Left Upper Extremity Immediately upon sitting from supine Blood Pressure (90/60-120/80 mmHg) 113/82 H Blood Pressure Source Automatic Cuff,Left Upper Extremity PT-OP-J Posture/Palpation/Skin Start: 04/23/20 17:37 Freq: Status: Active Protocol: Document 04/29/20 12:47 LRN (Rec: 04/29/20 14:04 LRN [id number]) Palpation Assessment Location L knee Palpation Location Around L knee joint Palpation Findings Edema,Soft Tissue Tightness, Tenderness Palpation Details Increased temperature PT-OP-K Range of Motion Start: 04/23/20 17:37 Freq: Status: Active Protocol: Document 06/28/20 13:32 LRN (Rec: 06/28/20 14:21 LRN [id number]) Knee Goniometric Range of Motion Knee Supine L knee AROM Knee ROM WFL No Patient Position Supine Flexion Active (degrees) 122 Flexion Passive (degrees) 127 Sitting L knee AROM Knee ROM WFL No Patient Position Sitting Flexion Passive (degrees) 118 Comments Pt on Sci-fit. PT-OP-M Strength Start: 04/23/20 17:37 Freq: Status: Active Protocol: Document 06/24/20 13:41 LRN (Rec: 06/24/20 17:29 LRN [id number]) Knee Strength Knee Manual Muscle Testing Right Flexion (S2) 5 Normal Extension (L3) 5 Normal Left Flexion (S2) 4+ Good+ Extension (L3) 4+ Good+ PT-OP-Q Treatments Start: 04/23/20 17:37 Freq: Status: Active Protocol: Document 07/01/20 10:37 LRN (Rec: 07/01/20 11:21 LRN [id number]) Therapeutic Exercises Supine Exercises Heel Slides Supine Exercise Name Off wall and off plinth Side left Equipment Used Strap & TBall Reps/Minutes 18' Comments Pt gradually elevated head throughout ex until able to sit at edge of plint Prone Exercises Knee flex strengthening Prone Exercise Name knee flex Side left Equipment Used 4# Reps/Minutes 4' x 2 Comments V cuing needed for breathing Knee flex Prone Exercise Name Passive flex stretch Side left Reps/Minutes 4' Comments V cuing needed for breathing coordination Standing Exercises Stretch knee flexion off step Standing Exercise Name Knee flex stretch on descent Side left Manual Therapy Treatment Soft Tissue Mobilization L Quad & suprapatellar Body Location L Quad/suprapatellar region Mobilization Type Strumming Intensity/Depth Moderate Body Position Supine legs on bolster Comments No pain with STM L knee scar Body Location L knee scar Mobilization Type Myofascial Release Intensity/Depth Moderate Body Position Hooklying PT-OP-R Modalities Start: 04/23/20 17:37 Freq: Status: Active Protocol: Document 07/01/20 10:37 LRN (Rec: 07/01/20 11:21 LRN [id number]) Hot Pack/Cold Pack Treatment Cold Pack Location L knee Patient Position Hooklying Treatment Duration (minutes) 10 Comments Semi-reclined with 2 pillow under head/shoulders PT-OP-T Assessment and Plan Start: 04/23/20 17:37 Freq: Status: Active Protocol: Document 07/01/20 10:37 LRN (Rec: 07/01/20 11:21 LRN [id number]) Physical Therapy Assessment Goals Five Impairment L knee pain (5-7/10) Short Term Goal (STG) Dec pain at rest to 4-5/10. (07/01/20: Pain at rest is 0-1 /10) STG Duration 07/04/20 (06/27/20: MET GOAL) Fdc Goal (LTG) Decr pain at rest to 0-1/10 and with walking activity to 2 -3/10. (07/01/20: Pain at rest and with walking is 0-1/10) LTG Duration 08/16/20 (07/01/20: MET GOAL) Four Impairment Decreased L knee AROM (10-52 deg's) Short Term Goal (STG) Increase L knee AROM 0-120 deg 's. (AROM before surgery: 5- 100 deg's). 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 LTG Duration 06/28/20 Three Impairment Pt unable to return to her prior pool exercise program, independently Short Term Goal (STG) Pt scar will be healed with good scar mobility and L knee AROM at least 5-95 deg's (06/25/20: Good scar mobility. 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 LTG Duration 08/16/20 Two Impairment Antalgic gait using a FWW for safety Short Term Goal (STG) Pt will be able to walk with a normal gait pattern without a walker. (06/27/20: Very slight antalgic gait noted) STG Duration 07/05/20 (06/27/20: MET GOAL) Welding Machine Operator [employer] Goal (LTG) Pt will be able to walk a long distance of 6 blks or 2-3 miles with mild to no difficulty. LTG Duration 08/16/20 One Impairment Lacks appropriate self care HEP Fdc Goal (LTG) Pt will be independent in a self care HEP for continued L knee/hip exercises. HEP TO DATE: INSTRUCTIONS GIVEN: *Do's/Don 'ts of lymph massage. *LE self lymph massage. AROM: *Bilateral BKFO, * Sitting knee ext, *Supine Ankle pumps, and *written I/S for knee flex stretch f/b 10 active stretches. RECOMMENDED POOL EXERCISES: * Knee flexion exercises. LTG Duration 08/16/20 (06/27/20: Progressing) Progress Towards Goals Progress Comments Goal #5 MET. Pain at rest and with walking is 0-1/10. Primarily pt feels stiffness in L knee except with ROM exercises. Assessment Summary Assessment Pt able to achieve 125-127 deg 's L knee PROM after stretching. Actively she is at 118-120 deg's. Pt feeling stiffness with pain across anterior L knee. Pt is a little more stiff after the weekend, but was able to achieve acceptable ROM. Pt had reported one day after being on CPM (thinks she was crooked on it) she had a night with sharp pain in the knee, possibly due to being crooked on CPM or twisting at the knee during the night. Will monitor. Physical Therapy Plan Frequency and Duration Frequency of Treatment Daily x 2 wks >3x/wk Plan of Care Start Date 06/24/20 Plan of Care End Date 08/16/20 Next Visit Focus/Plan Next Note Type Treatment Note Next Visit Plan Add to HEP: Iliopsoas/quad stretch. (Note: Pt insurance in [place]). Pt is s/p L TKA (04/21/20) & Manipulation (06/24/20) for improving knee flex to at least 120 deg's or more. Monitor BP/HR during therapy due to occasional sympathetic response to stretching/pain. PT daily for 1 more week per surgeon request, then therapy 1-2x/week as needed (2-4 wks). Focus therapy on L knee ROM with flex stretch with close supervision because pt tends to allow overstretch f/b sympathetic response of nausea , shaking of hands/UE's. STM and scar mob during stretching . End Cryotherapy/Cryocuff in semi-reclined position.
[2020-07-02 10:34] VITALS: BP 109/75; BP 115/82; PULSE 66; PULSE 77
--- NOTE | 2020-07-02 11:59 | PT.OTN ---
Current Diagnoses Unilateral primary osteoarthritis, left knee (07/02/20) Effusion, right knee (07/02/20) Pain in right knee (07/02/20) Muscle weakness (generalized) (07/02/20) Other abnormalities of gait and mobility (07/02/20) Physical Therapy Treatment Note PT-OP-A Visit Information Start: 04/23/20 17:37 Freq: Status: Active Protocol: Document 07/02/20 10:34 LRN (Rec: 07/02/20 11:58 LRN [id number]) Out-Patient Physical Therapy Visit Information Visit Information Visit Type Treatment Note Visit Start Time 10:34 Visit Stop Time 11:38 Total Visit Minutes 64 Visit Number 23 Evaluation Information Evaluation Date 04/29/20 Precautions Precautions Arthritis, Back & Neck pain since surgery. PT-OP-B Current Condition Start: 04/23/20 17:37 Freq: Status: Active Protocol: Document 06/24/20 13:41 LRN (Rec: 06/24/20 14:25 LRN [id number]) Current Condition History of Current Condition Onset Date 06/21/20 Current Complaints L knee limited ROM. History of Current Condition Pt is a 75 yo female who underwent a L TKA on 04/21/20 and is now returning after a L knee manipulation on 06/21/20. Pt has sensation in the L LE with no complaints of pain with pressure at the knee. Pt has sensation to touch, hot/ cold, pressure (decreased). Prior Treatments and Tests L TKA rehab 04/29/20 - 06/21/20. Developmental History Developmental History R Anterior cruciate and MCL surgery after ski fall (1976) followed by surgery to repair and was in a full leg cast for 6 weeks. Pt reports arthritis set and has had injections in the R knee since . Treatment Goals Patient/Caregiver Goals At minimal 120 deg's L knee active flexion. Prior Functional Status Baseline Function- ADL's Modified Independent Baseline Function- Mobility Independent Baseline Function- Gait Antalgic Gait, stiffness of R knee Baseline Function- Other In surgery: 140 deg's L knee flexion. Current Functional Impairments (Reported) Functional Limitations- ADL's Tired, from AM L knee manipulation. Functional Limitations- Mobility/Gait Ambs with an antalgic gait. Functional Limitations- Other L knee AROM: Sittin deg's. Supine active: 110 deg's; passive: 120 deg's. Personal Factors Other Personal Factors That May Effect Lives alone. Therapy/Recovery PT-OP-C Subjective Start: 04/23/20 17:37 Freq: Status: Active Protocol: Document 07/02/20 10:34 LRN (Rec: 07/02/20 11:58 LRN [id number]) OP-PT Subjective Patient Comments Patient Comments Not using CPM at night and did not use it today. PT-OP-G Mobility & Gait Start: 04/23/20 17:37 Freq: Status: Active Protocol: Document 07/02/20 10:34 LRN (Rec: 07/02/20 11:58 LRN [id number]) OP Gait Assessment Comments Gait Comments Pt holds L knee moderately stiff with gait. PT-OP-H Neuro Start: 04/23/20 17:37 Freq: Status: Active Protocol: Document 07/02/20 10:34 LRN (Rec: 07/02/20 11:58 LRN [id number]) Vital Signs Pulse Resting Pulse at Rest (bpm) 77 Immediately upon sitting from supine Pulse at Rest (bpm) 66 Blood Pressure Resting Blood Pressure (90/60-120/80 mmHg) 109/75 Blood Pressure Source Manual Cuff,Left Upper Extremity Immediately upon sitting from supine Blood Pressure (90/60-120/80 mmHg) 115/82 H Blood Pressure Source Automatic Cuff,Left Upper Extremity PT-OP-J Posture/Palpation/Skin Start: 04/23/20 17:37 Freq: Status: Active Protocol: Document 04/29/20 12:47 LRN (Rec: 04/29/20 14:04 LRN [id number]) Palpation Assessment Location L knee Palpation Location Around L knee joint Palpation Findings Edema,Soft Tissue Tightness, Tenderness Palpation Details Increased temperature PT-OP-K Range of Motion Start: 04/23/20 17:37 Freq: Status: Active Protocol: Document 07/02/20 10:34 LRN (Rec: 07/02/20 11:58 LRN [id number]) Knee Goniometric Range of Motion Knee Supine L knee AROM Knee ROM WFL No Patient Position Supine Flexion Active (degrees) 120 Flexion Passive (degrees) 130 Sitting L knee AROM Knee ROM WFL No Patient Position Sitting Flexion Active (degrees) 120 PT-OP-M Strength Start: 04/23/20 17:37 Freq: Status: Active Protocol: Document 06/24/20 13:41 LRN (Rec: 06/24/20 17:29 LRN [id number]) Knee Strength Knee Manual Muscle Testing Right Flexion (S2) 5 Normal Extension (L3) 5 Normal Left Flexion (S2) 4+ Good+ Extension (L3) 4+ Good+ PT-OP-Q Treatments Start: 04/23/20 17:37 Freq: Status: Active Protocol: Document 07/02/20 10:34 LRN (Rec: 07/02/20 11:58 LRN [id number]) Cardio Equipment Recumbent Stepper (Sci-Fit) Duration (Minutes) 5 Resistance 0 Seat Position 1 Other Pt tolerated progressed her ROM to max on machine quickly. Therapeutic Exercises Supine Exercises Quad/Iliopsoas stretch Supine Exercise Name L Leg off table for Quad/ Iliopsoas stretch Side left Reps/Minutes 4' Comments With MFR to quads Heel Slides Supine Exercise Name Repetitive passive knee flex, & Ecc/Conc strengthening Side left Equipment Used Strap & TBall Reps/Minutes 18' Comments Pt gradually elevated head throughout ex until able to sit at edge of plint Prone Exercises Knee flex strengthening Prone Exercise Name Ecc/Conc knee flex Equipment Used 4#, Rolled small hand towel at bend of knee Reps/Minutes 11' Knee flex Prone Exercise Name Passive knee flex w/MFR to Quads Equipment Used 4#, Rolled small hand towel at bend of knee Reps/Minutes 2' Sitting Exercises Passive knee flex Sitting Exercise Name Passive knee flexion Side left Reps/Minutes 5' Comments L knee: Active: 118 deg's felx, Passive: 120 deg's flex Gait Training Gait Activity Gait on Level Description Training for LLE: heel strike & knee flexion Device Used None Distance/Duration 3' Treatment Focus L heel strike and knee flex on swing through Self-Care/Home Management Treatment Education Patient Education Home Exercise Program Activities Self-Care/Home Management Activities Pt I/S to do L Quad/Iliopsoas stretch at home during treatment stretching. PT-OP-R Modalities Start: 04/23/20 17:37 Freq: Status: Active Protocol: Document 07/02/20 10:34 LRN (Rec: 07/02/20 11:58 LRN [id number]) Hot Pack/Cold Pack Treatment Cold Pack Location L knee Patient Position Hooklying Treatment Duration (minutes) 10 Patient Tolerance Fair Comments Pt became shaky; therefore blanket used to cover pt. Semi-reclined with 2 pillow under head/shoulders PT-OP-T Assessment and Plan Start: 04/23/20 17:37 Freq: Status: Active Protocol: Document 07/02/20 10:34 LRN (Rec: 07/02/20 11:58 LRN [id number]) Physical Therapy Assessment Goals Four Impairment Decreased L knee AROM (10-52 deg's) Short Term Goal (STG) Increase L knee AROM 0-120 deg 's. (AROM before surgery: 5- 100 deg's). (06/27/20: L knee (sup) AROM: flex is 120 deg's @ end of therapy; PROM 125 de'gs) STG Duration 06/21/20 (06/25/20: MET GOAL) Rental Boats Caretaker Goal (LTG) Increase L knee AROM 0-125 deg 's. (07/02/20: L knee AROM is 120 deg's flexion) LTG Duration 06/28/20 Three Impairment Pt unable to return to her prior pool exercise program, independently Short Term Goal (STG) Pt scar will be healed with good scar mobility and L knee AROM at least 5-95 deg's (06/25/20: Good scar mobility. L knee AROM in sitting is 4- 110 deg's) STG Duration 06/28/20 (05/31/20: MET GOAL) [employer]ental Bo[employer] Caretaker Goal (LTG) Pt able to get into the local pool and do her prior ex program with modifications as needed. LTG Duration 08/16/20 Two Impairment Antalgic gait using a FWW for safety Short Term Goal (STG) Pt will be able to walk with a normal gait pattern without a walker. (06/27/20: Very slight antalgic gait noted) STG Duration 07/05/20 (06/27/20: MET GOAL) Mcfp Goal (LTG) Pt will be able to walk a long distance of 6 blks or 2-3 miles with mild to no difficulty. LTG Duration 08/16/20 One Impairment Lacks appropriate self care HEP Rental Bo[employer] Caretaker Goal (LTG) Pt will be independent in a self care HEP for continued L knee/hip exercises. HEP TO DATE: INSTRUCTIONS GIVEN: *Do's/Don 'ts of lymph massage, *Quad/ Iliopsas stretch. *LE self lymph massage. AROM: *Bilateral BKFO, * Sitting knee ext, *Supine Ankle pumps, and *written I/S for knee flex stretch f/b 10 active stretches. RECOMMENDED POOL EXERCISES: * Knee flexion exercises. LTG Duration 08/16/20 (07/02/20: Progressing) Progress Towards Goals Progress Comments L knee PROM at end of therapy improved to 130 deg's, from 127 deg's last treatment. Assessment Summary Assessment Pt presnts with stiffness of the L knee with gait today, possibly due to pt not using CPM at home. Fair tolerance to treatment with onset of shaking and cold while on cryotherapy, but no symptoms post therapy. Physical Therapy Plan Frequency and Duration Frequency of Treatment Daily x 1 wks >3x/wk Plan of Care Start Date 06/24/20 Plan of Care End Date 08/16/20 Next Visit Focus/Plan Next Note Type Treatment Note Next Visit Plan Issue handout for HEP: Iliopsoas/quad stretch. (Note: Pt insurance in [place]). Pt is s/p L TKA (04/21/20) & Manipulation (06/24/20) for improving knee flex to at least 120 deg's or more. Monitor BP/HR during therapy due to occasional sympathetic response to stretching/pain. PT daily for 1 more week per surgeon request, then therapy 1-2x/week as needed (2-4 more wks). Focus therapy on L knee ROM with flex stretch with close supervision because pt tends to allow overstretch f/b sympathetic response of nausea, shaking of hands/UE's. Secondary focus is to improve hamstring strength in new achieved PROM. End Cryotherapy/Cryocuff in semi- reclined position with blanket for warmth.
--- NOTE | 2020-07-03 14:19 | PT.OTN ---
Current Diagnoses Unilateral primary osteoarthritis, left knee (07/03/20) Effusion, right knee (07/03/20) Pain in right knee (07/03/20) Muscle weakness (generalized) (07/03/20) Other abnormalities of gait and mobility (07/03/20) Physical Therapy Treatment Note PT-OP-A Visit Information Start: 04/23/20 17:37 Freq: Status: Active Protocol: Document 07/03/20 10:20 MA (Rec: 07/03/20 11:02 MA [id number]) Out-Patient Physical Therapy Visit Information Visit Information Visit Type Treatment Note Visit Start Time 10:14 Visit Stop Time 11:10 Total Visit Minutes 51 Visit Number 24 Number of BUNDLE COLLECTOR Visits 1 Precautions Precautions Arthritis, Back & Neck pain since surgery. PT-OP-B Current Condition Start: 04/23/20 17:37 Freq: Status: Active Protocol: Document 06/24/20 13:41 LRN (Rec: 06/24/20 14:25 LRN [id number]) Current Condition History of Current Condition Onset Date 06/21/20 Current Complaints L knee limited ROM. History of Current Condition Pt is a 75 yo female who underwent a L TKA on 04/21/20 and is now returning after a L knee manipulation on 06/21/20. Pt has sensation in the L LE with no complaints of pain with pressure at the knee. Pt has sensation to touch, hot/ cold, pressure (decreased). Prior Treatments and Tests L TKA rehab 04/29/20 - 06/21/20. Developmental History Developmental History R Anterior cruciate and MCL surgery after ski fall (1976) followed by surgery to repair and was in a full leg cast for 6 weeks. Pt reports arthritis set and has had injections in the R knee since . Treatment Goals Patient/Caregiver Goals At minimal 120 deg's L knee active flexion. Prior Functional Status Baseline Function- ADL's Modified Independent Baseline Function- Mobility Independent Baseline Function- Gait Antalgic Gait, stiffness of R knee Baseline Function- Other In surgery: 140 deg's L knee flexion. Current Functional Impairments (Reported) Functional Limitations- ADL's Tired, from AM L knee manipulation. Functional Limitations- Mobility/Gait Ambs with an antalgic gait. Functional Limitations- Other L knee AROM: Sittin deg's. Supine active: 110 deg's; passive: 120 deg's. Personal Factors Other Personal Factors That May Effect Lives alone. Therapy/Recovery PT-OP-C Subjective Start: 04/23/20 17:37 Freq: Status: Active Protocol: Document 07/03/20 10:20 MA (Rec: 07/03/20 11:02 MA [id number]) OP-PT Subjective Patient Comments Patient Comments Pt is using CPM machine ~2 hours during the day but not at night anymore. PT-OP-G Mobility & Gait Start: 04/23/20 17:37 Freq: Status: Active Protocol: Document 07/02/20 10:34 LRN (Rec: 07/02/20 11:58 LRN [id number]) OP Gait Assessment Comments Gait Comments Pt holds L knee moderately stiff with gait. PT-OP-H Neuro Start: 04/23/20 17:37 Freq: Status: Active Protocol: Document 07/02/20 10:34 LRN (Rec: 07/02/20 11:58 LRN [id number]) Vital Signs Pulse Resting Pulse at Rest (bpm) 77 Immediately upon sitting from supine Pulse at Rest (bpm) 66 Blood Pressure Resting Blood Pressure (90/60-120/80 mmHg) 109/75 Blood Pressure Source Manual Cuff,Left Upper Extremity Immediately upon sitting from supine Blood Pressure (90/60-120/80 mmHg) 115/82 H Blood Pressure Source Automatic Cuff,Left Upper Extremity PT-OP-J Posture/Palpation/Skin Start: 04/23/20 17:37 Freq: Status: Active Protocol: Document 04/29/20 12:47 LRN (Rec: 04/29/20 14:04 LRN [id number]) Palpation Assessment Location L knee Palpation Location Around L knee joint Palpation Findings Edema,Soft Tissue Tightness, Tenderness Palpation Details Increased temperature PT-OP-K Range of Motion Start: 04/23/20 17:37 Freq: Status: Active Protocol: Document 07/02/20 10:34 LRN (Rec: 07/02/20 11:58 LRN [id number]) Knee Goniometric Range of Motion Knee Supine L knee AROM Knee ROM WFL No Patient Position Supine Flexion Active (degrees) 120 Flexion Passive (degrees) 130 Sitting L knee AROM Knee ROM WFL No Patient Position Sitting Flexion Active (degrees) 120 PT-OP-M Strength Start: 04/23/20 17:37 Freq: Status: Active Protocol: Document 06/24/20 13:41 LRN (Rec: 06/24/20 17:29 LRN [id number]) Knee Strength Knee Manual Muscle Testing Right Flexion (S2) 5 Normal Extension (L3) 5 Normal Left Flexion (S2) 4+ Good+ Extension (L3) 4+ Good+ PT-OP-Q Treatments Start: 04/23/20 17:37 Freq: Status: Active Protocol: Document 07/03/20 10:20 MA (Rec: 07/03/20 11:02 MA [id number]) Cardio Equipment Recumbent Stepper (Sci-Fit) Duration (Minutes) 5 Resistance 0 Seat Position 1 Other Pt tolerated progressed her ROM to max on machine quickly. Therapeutic Exercises Supine Exercises Quad/Iliopsoas stretch Supine Exercise Name L Leg off table for Quad/ Iliopsoas stretch Side left Reps/Minutes 4' Comments With MFR to quads Heel Slides Supine Exercise Name Repetitive passive knee flex, & Ecc/Conc strengthening Side left Equipment Used Strap & TBall Reps/Minutes 18' Prone Exercises Knee flex strengthening Prone Exercise Name Ecc/Conc knee flex Equipment Used 4#, Rolled small hand towel at bend of knee Reps/Minutes 11' Knee flex Prone Exercise Name Passive knee flex w/MFR to Quads Equipment Used 4#, Rolled small hand towel at bend of knee Reps/Minutes 2' PT-OP-R Modalities Start: 04/23/20 17:37 Freq: Status: Active Protocol: Document 07/03/20 11:03 MA (Rec: 07/03/20 11:03 MA [id number]) Hot Pack/Cold Pack Treatment Cold Pack Location L knee Patient Position Hooklying Treatment Duration (minutes) 10 Patient Tolerance Fair Comments blanket used to cover pt. Semi-reclined with 2 pillow under head/shoulders PT-OP-T Assessment and Plan Start: 04/23/20 17:37 Freq: Status: Active Protocol: Document 07/03/20 10:20 MA (Rec: 07/03/20 11:02 MA [id number]) Physical Therapy Assessment Goals Four Impairment Decreased L knee AROM (10-52 deg's) Short Term Goal (STG) Increase L knee AROM 0-120 deg 's. (AROM before surgery: 5- 100 deg's). (06/27/20: L knee (sup) AROM: flex is 120 deg's @ end of therapy; PROM 125 de'gs) STG Duration 06/21/20 (06/25/20: MET GOAL) Snf Goal (LTG) Increase L knee AROM 0-125 deg 's. (07/02/20: L knee AROM is 120 deg's flexion) LTG Duration 06/28/20 Three Impairment Pt unable to return to her prior pool exercise program, independently Short Term Goal (STG) Pt scar will be healed with good scar mobility and L knee AROM at least 5-95 deg's (06/25/20: Good scar mobility. L knee AROM in sitting is 4- 110 deg's) STG Duration 06/28/20 (05/31/20: MET GOAL) Snf Goal (LTG) Pt able to get into the local pool and do her prior ex program with modifications as needed. LTG Duration 08/16/20 Two Impairment Antalgic gait using a FWW for safety Short Term Goal (STG) Pt will be able to walk with a normal gait pattern without a walker. (06/27/20: Very slight antalgic gait noted) STG Duration 07/05/20 (06/27/20: MET GOAL) Snf Goal (LTG) Pt will be able to walk a long distance of 6 blks or 2-3 miles with mild to no difficulty. LTG Duration 08/16/20 One Impairment Lacks appropriate self care HEP Cloth Stock Sorter Goal (LTG) Pt will be independent in a self care HEP for continued L knee/hip exercises. HEP TO DATE: INSTRUCTIONS GIVEN: *Do's/Don 'ts of lymph massage, *Quad/ Iliopsas stretch. *LE self lymph massage. AROM: *Bilateral BKFO, * Sitting knee ext, *Supine Ankle pumps, and *written I/S for knee flex stretch f/b 10 active stretches. RECOMMENDED POOL EXERCISES: * Knee flexion exercises. LTG Duration 08/16/20 (07/02/20: Progressing) Assessment Summary Assessment Pt continues to improve L knee flexion. AAROM knee flexion on sci-fit at beginning of session was 118 degrees, AROM at end of session 124; PROM 127 degrees. Physical Therapy Plan Frequency and Duration Frequency of Treatment Daily x 1 wks >3x/wk Plan of Care Start Date 06/24/20 Plan of Care End Date 08/16/20 Therapeutic Interventions Therapeutic Interventions Gait Training,Home Exercise Program,Joint Mobilizations, Manual Therapy,Patient/ Caregiver Education,Self-Care/ Home Management,Soft Tissue Mobilization,Therapeutic Exercises Modalities Cold Pack/Ice Massage Other Therapeutic Interventions Independent self care aquatic exercise when pool opens. Next Visit Focus/Plan Next Note Type Treatment Note Next Visit Plan Check if pt tried new HEP stretches at home. (Note: Pt insurance [place]). Pt is s/p L TKA (04/21/20) & Manipulation (06/24/20) for improving knee flex to at least 120 deg's or more. Monitor BP/HR during therapy due to occasional sympathetic response to stretching/pain. PT daily for 1 more week per surgeon request, then therapy 1-2x/week as needed (2-4 more wks). Focus therapy on L knee ROM with flex stretch with close supervision because pt tends to allow overstretch f/b sympathetic response of nausea, shaking of hands/UE's. Secondary focus is to improve hamstring strength in new achieved PROM. End Cryotherapy/Cryocuff in semi- reclined position with blanket for warmth.
--- NOTE | 2020-07-04 08:26 | PT-OP ANOTE ---
Pt missed this am's appt, she called and rescheduled for 1215.
--- NOTE | 2020-07-04 13:19 | PT.OTN ---
Current Diagnoses Unilateral primary osteoarthritis, left knee (07/04/20) Effusion, right knee (07/04/20) Pain in right knee (07/04/20) Muscle weakness (generalized) (07/04/20) Other abnormalities of gait and mobility (07/04/20) Physical Therapy Treatment Note PT-OP-A Visit Information Start: 04/23/20 17:37 Freq: Status: Active Protocol: Document 07/04/20 12:15 SP (Rec: 07/04/20 15:59 SP [id number]) Out-Patient Physical Therapy Visit Information Visit Information Visit Type Treatment Note Visit Start Time 12:15 Visit Stop Time 13:19 Total Visit Minutes 64 Visit Number 25 Number of RESIDENTIAL GLAZIER Visits 2 Evaluation Information Evaluation Date 04/29/20 Precautions Precautions Arthritis, Back & Neck pain since surgery. PT-OP-B Current Condition Start: 04/23/20 17:37 Freq: Status: Active Protocol: Document 06/24/20 13:41 LRN (Rec: 06/24/20 14:25 LRN [id number]) Current Condition History of Current Condition Onset Date 06/21/20 Current Complaints L knee limited ROM. History of Current Condition Pt is a 75 yo female who underwent a L TKA on 04/21/20 and is now returning after a L knee manipulation on 06/21/20. Pt has sensation in the L LE with no complaints of pain with pressure at the knee. Pt has sensation to touch, hot/ cold, pressure (decreased). Prior Treatments and Tests L TKA rehab 04/29/20 - 06/21/20. Developmental History Developmental History R Anterior cruciate and MCL surgery after ski fall (1976) followed by surgery to repair and was in a full leg cast for 6 weeks. Pt reports arthritis set and has had injections in the R knee since . Treatment Goals Patient/Caregiver Goals At minimal 120 deg's L knee active flexion. Prior Functional Status Baseline Function- ADL's Modified Independent Baseline Function- Mobility Independent Baseline Function- Gait Antalgic Gait, stiffness of R knee Baseline Function- Other In surgery: 140 deg's L knee flexion. Current Functional Impairments (Reported) Functional Limitations- ADL's Tired, from AM L knee manipulation. Functional Limitations- Mobility/Gait Ambs with an antalgic gait. Functional Limitations- Other L knee AROM: Sittin deg's. Supine active: 110 deg's; passive: 120 deg's. Personal Factors Other Personal Factors That May Effect Lives alone. Therapy/Recovery PT-OP-C Subjective Start: 04/23/20 17:37 Freq: Status: Active Protocol: Document 07/04/20 12:15 SP (Rec: 07/04/20 15:59 SP [id number]) OP-PT Subjective Patient Comments Patient Comments Pt stated sorry missed am appt , am appt new and forgot. Continue use CPM machine 2hrs/ day at one time, it states 120 deg but she feels it's not accurate. Not using at night due to not able sleep well with it moving her leg. PT-OP-G Mobility & Gait Start: 04/23/20 17:37 Freq: Status: Active Protocol: Document 07/02/20 10:34 LRN (Rec: 07/02/20 11:58 LRN [id number]) OP Gait Assessment Comments Gait Comments Pt holds L knee moderately stiff with gait. PT-OP-H Neuro Start: 04/23/20 17:37 Freq: Status: Active Protocol: Document 07/02/20 10:34 LRN (Rec: 07/02/20 11:58 LRN [id number]) Vital Signs Pulse Resting Pulse at Rest (bpm) 77 Immediately upon sitting from supine Pulse at Rest (bpm) 66 Blood Pressure Resting Blood Pressure (90/60-120/80 mmHg) 109/75 Blood Pressure Source Manual Cuff,Left Upper Extremity Immediately upon sitting from supine Blood Pressure (90/60-120/80 mmHg) 115/82 H Blood Pressure Source Automatic Cuff,Left Upper Extremity PT-OP-J Posture/Palpation/Skin Start: 04/23/20 17:37 Freq: Status: Active Protocol: Document 04/29/20 12:47 LRN (Rec: 04/29/20 14:04 LRN [id number]) Palpation Assessment Location L knee Palpation Location Around L knee joint Palpation Findings Edema,Soft Tissue Tightness, Tenderness Palpation Details Increased temperature PT-OP-K Range of Motion Start: 04/23/20 17:37 Freq: Status: Active Protocol: Document 07/02/20 10:34 LRN (Rec: 07/02/20 11:58 LRN [id number]) Knee Goniometric Range of Motion Knee Supine L knee AROM Knee ROM WFL No Patient Position Supine Flexion Active (degrees) 120 Flexion Passive (degrees) 130 Sitting L knee AROM Knee ROM WFL No Patient Position Sitting Flexion Active (degrees) 120 PT-OP-M Strength Start: 04/23/20 17:37 Freq: Status: Active Protocol: Document 06/24/20 13:41 LRN (Rec: 06/24/20 17:29 LRN [id number]) Knee Strength Knee Manual Muscle Testing Right Flexion (S2) 5 Normal Extension (L3) 5 Normal Left Flexion (S2) 4+ Good+ Extension (L3) 4+ Good+ PT-OP-Q Treatments Start: 04/23/20 17:37 Freq: Status: Active Protocol: Document 07/04/20 12:15 SP (Rec: 07/04/20 15:59 SP [id number]) Cardio Equipment Recumbent Stepper (Sci-Fit) Duration (Minutes) 5 Resistance AAROM using UE and handles Seat Position 1 Other Pt tolerated progressed her ROM to max on machine quickly. Therapeutic Exercises Supine Exercises Quad/Iliopsoas stretch Supine Exercise Name L Leg off table for Quad/ Iliopsoas stretch Side left Reps/Minutes 4' Comments With MFR to quads superior glide w/ knee flexion Heel Slides Supine Exercise Name Repetitive passive knee flex, & Ecc/Conc strengthening Side left Equipment Used Strap & TBall Reps/Minutes 18' Comments 119> 123 AROM slide on table, Tball/strap- 131- 136deg Prone Exercises Knee flex strengthening Prone Exercise Name Ecc/Conc knee flex Equipment Used 4#, Rolled small hand towel at bend of knee Reps/Minutes 11' Knee flex Prone Exercise Name Passive knee flex w/MFR to Quads Equipment Used 4#, Rolled small hand towel at bend of knee Reps/Minutes 2' Comments 110 deg flexion Sitting Exercises rolling stick quad Sitting Exercise Name Discussed previous RESIDENTIAL GLAZIER initiated rolling stick to quad Comments discussed today but not performed. Manual Therapy Treatment Soft Tissue Mobilization L knee scar Body Location L knee scar Mobilization Type Myofascial Release Intensity/Depth Moderate Body Position Clif stretch positioning Comments good response- education twisting motion pre. PT-OP-R Modalities Start: 04/23/20 17:37 Freq: Status: Active Protocol: Document 07/04/20 12:15 SP (Rec: 07/04/20 15:59 SP [id number]) Hot Pack/Cold Pack Treatment Cold Pack Location L knee Patient Position Hooklying Treatment Duration (minutes) 10 Patient Tolerance Fair Comments blanket used to cover pt. Semi-reclined with 2 pillow under head/shoulders Good BP 116/74. PT-OP-T Assessment and Plan Start: 04/23/20 17:37 Freq: Status: Active Protocol: Document 07/04/20 12:15 SP (Rec: 07/04/20 15:59 SP [id number]) Physical Therapy Assessment Goals Four Impairment Decreased L knee AROM (10-52 deg's) Short Term Goal (STG) Increase L knee AROM 0-120 deg 's. (AROM before surgery: 5- 100 deg's). (06/27/20: L knee (sup) AROM: flex is 120 deg's @ end of therapy; PROM 125 de'gs, : 1-126 deg AROM, 133 deg PROM) STG Duration 06/21/20 (06/25/20: MET GOAL) Nursing Home Goal (LTG) Increase L knee AROM 0-125 deg 's. (07/02/20: L knee AROM is 120 deg's flexion) LTG Duration 06/28/20 Three Impairment Pt unable to return to her prior pool exercise program, independently Short Term Goal (STG) Pt scar will be healed with good scar mobility and L knee AROM at least 5-95 deg's (06/25/20: Good scar mobility. L knee AROM in sitting is 4- 110 deg's) STG Duration 06/28/20 (05/31/20: MET GOAL) Lead Systems Architect Goal (LTG) Pt able to get into the local pool and do her prior ex program with modifications as needed. LTG Duration 08/16/20 Two Impairment Antalgic gait using a FWW for safety Short Term Goal (STG) Pt will be able to walk with a normal gait pattern without a walker. (06/27/20: Very slight antalgic gait noted) STG Duration 07/05/20 (06/27/20: MET GOAL) Nursing Home Goal (LTG) Pt will be able to walk a long distance of 6 blks or 2-3 miles with mild to no difficulty. LTG Duration 08/16/20 One Impairment Lacks appropriate self care HEP Lead Systems Architect Goal (LTG) Pt will be independent in a self care HEP for continued L knee/hip exercises. HEP TO DATE: INSTRUCTIONS GIVEN: *Do's/Don 'ts of lymph massage, *Quad/ Iliopsas stretch. *LE self lymph massage. AROM: *Bilateral BKFO, * Sitting knee ext, *Supine Ankle pumps, and *written I/S for knee flex stretch f/b 10 active stretches. RECOMMENDED POOL EXERCISES: * Knee flexion exercises. LTG Duration 08/16/20 (07/02/20: Progressing) Assessment Summary Assessment Pt improved 106 deg L knee flexion on scifit improved to 126 deg AROm and 136 deg PROM using strap supine over ball end of tx. Ended HS eccentric strengthening wtih good response. Pt tolerated tx well , no sympathetic response reactions during CP BP stable @ 116/74. Physical Therapy Plan Frequency and Duration Frequency of Treatment Daily x 1 wks >3x/wk Plan of Care Start Date 06/24/20 Plan of Care End Date 08/16/20 Therapeutic Interventions Therapeutic Interventions Gait Training,Home Exercise Program,Joint Mobilizations, Manual Therapy,Patient/ Caregiver Education,Self-Care/ Home Management,Soft Tissue Mobilization,Therapeutic Exercises Modalities Cold Pack/Ice Massage Other Therapeutic Interventions Independent self care aquatic exercise when pool opens. Next Visit Focus/Plan Next Note Type Treatment Note Next Visit Plan Pt stated is incorporating HEP stretches at home learned. (Note: Pt insurance [place]). Pt is s/p L TKA (04/21/20) & Manipulation (06/24/20) for improving knee flex to at least 120 deg's or more. Monitor BP/HR during therapy due to occasional sympathetic response to stretching/pain. PT daily for 1 more week per surgeon request, then therapy 1-2x/week as needed (2-4 more wks). Focus therapy on L knee ROM with flex stretch with close supervision because pt tends to allow overstretch f/b sympathetic response of nausea, shaking of hands/UE's. Secondary focus is to improve hamstring strength in new achieved PROM. End Cryotherapy/Cryocuff in semi- reclined position with blanket for warmth.
--- NOTE | 2020-07-05 14:43 | PT.OTN ---
Current Diagnoses Unilateral primary osteoarthritis, left knee (07/05/20) Effusion, right knee (07/05/20) Pain in right knee (07/05/20) Muscle weakness (generalized) (07/05/20) Other abnormalities of gait and mobility (07/05/20) Physical Therapy Treatment Note PT-OP-A Visit Information Start: 04/23/20 17:37 Freq: Status: Active Protocol: Document 07/05/20 13:48 SP (Rec: 07/05/20 15:05 SP [id number]) Out-Patient Physical Therapy Visit Information Visit Information Visit Type Treatment Note Visit Start Time 13:48 Visit Stop Time 14:43 Total Visit Minutes 55 Visit Number 26 Number of RETAIL ASSISTANT Visits 3 Evaluation Information Evaluation Date 04/29/20 Precautions Precautions Arthritis, Back & Neck pain since surgery. PT-OP-B Current Condition Start: 04/23/20 17:37 Freq: Status: Active Protocol: Document 06/24/20 13:41 LRN (Rec: 06/24/20 14:25 LRN [id number]) Current Condition History of Current Condition Onset Date 06/21/20 Current Complaints L knee limited ROM. History of Current Condition Pt is a 75 yo female who underwent a L TKA on 04/21/20 and is now returning after a L knee manipulation on 06/21/20. Pt has sensation in the L LE with no complaints of pain with pressure at the knee. Pt has sensation to touch, hot/ cold, pressure (decreased). Prior Treatments and Tests L TKA rehab 04/29/20 - 06/21/20. Developmental History Developmental History R Anterior cruciate and MCL surgery after ski fall (1976) followed by surgery to repair and was in a full leg cast for 6 weeks. Pt reports arthritis set and has had injections in the R knee since . Treatment Goals Patient/Caregiver Goals At minimal 120 deg's L knee active flexion. Prior Functional Status Baseline Function- ADL's Modified Independent Baseline Function- Mobility Independent Baseline Function- Gait Antalgic Gait, stiffness of R knee Baseline Function- Other In surgery: 140 deg's L knee flexion. Current Functional Impairments (Reported) Functional Limitations- ADL's Tired, from AM L knee manipulation. Functional Limitations- Mobility/Gait Ambs with an antalgic gait. Functional Limitations- Other L knee AROM: Sittin deg's. Supine active: 110 deg's; passive: 120 deg's. Personal Factors Other Personal Factors That May Effect Lives alone. Therapy/Recovery PT-OP-C Subjective Start: 04/23/20 17:37 Freq: Status: Active Protocol: Document 07/05/20 13:48 SP (Rec: 07/05/20 15:05 SP [id number]) OP-PT Subjective Patient Comments Patient Comments Pt stated felt the best the best after left last tx until late in the evening and noted calf sore so know compensating w/ calf so stretched. Patient Reported Progress Improving PT-OP-G Mobility & Gait Start: 04/23/20 17:37 Freq: Status: Active Protocol: Document 07/02/20 10:34 LRN (Rec: 07/02/20 11:58 LRN [id number]) OP Gait Assessment Comments Gait Comments Pt holds L knee moderately stiff with gait. PT-OP-H Neuro Start: 04/23/20 17:37 Freq: Status: Active Protocol: Document 07/02/20 10:34 LRN (Rec: 07/02/20 11:58 LRN [id number]) Vital Signs Pulse Resting Pulse at Rest (bpm) 77 Immediately upon sitting from supine Pulse at Rest (bpm) 66 Blood Pressure Resting Blood Pressure (90/60-120/80 mmHg) 109/75 Blood Pressure Source Manual Cuff,Left Upper Extremity Immediately upon sitting from supine Blood Pressure (90/60-120/80 mmHg) 115/82 H Blood Pressure Source Automatic Cuff,Left Upper Extremity PT-OP-J Posture/Palpation/Skin Start: 04/23/20 17:37 Freq: Status: Active Protocol: Document 04/29/20 12:47 LRN (Rec: 04/29/20 14:04 LRN [id number]) Palpation Assessment Location L knee Palpation Location Around L knee joint Palpation Findings Edema,Soft Tissue Tightness, Tenderness Palpation Details Increased temperature PT-OP-K Range of Motion Start: 04/23/20 17:37 Freq: Status: Active Protocol: Document 07/02/20 10:34 LRN (Rec: 07/02/20 11:58 LRN [id number]) Knee Goniometric Range of Motion Knee Supine L knee AROM Knee ROM WFL No Patient Position Supine Flexion Active (degrees) 120 Flexion Passive (degrees) 130 Sitting L knee AROM Knee ROM WFL No Patient Position Sitting Flexion Active (degrees) 120 PT-OP-M Strength Start: 04/23/20 17:37 Freq: Status: Active Protocol: Document 06/24/20 13:41 LRN (Rec: 06/24/20 17:29 LRN [id number]) Knee Strength Knee Manual Muscle Testing Right Flexion (S2) 5 Normal Extension (L3) 5 Normal Left Flexion (S2) 4+ Good+ Extension (L3) 4+ Good+ PT-OP-Q Treatments Start: 04/23/20 17:37 Freq: Status: Active Protocol: Document 07/05/20 13:48 SP (Rec: 07/05/20 15:05 SP [id number]) Cardio Equipment Bicycle (Upright) Duration (Minutes) 8 Resistance 0 Seat Position 1>Min Other backward>forward w/ ankle DF 123 deg Therapeutic Exercises Supine Exercises knee flexion Supine Exercise Name concentric/ eccentric- added to HEP Side left Resistance TB #2 Reps/Minutes 2x8 heel slides, achored in door Comments good HS facilitation for home- anchored by RETAIL ASSISTANT in tx Heel Slides Supine Exercise Name Repetitive passive knee flex, & Ecc/Conc strengthening Side left Equipment Used Strap & TBall Reps/Minutes 18' Comments 126 deg AROM slide on table, Tball/strap 131 deg Prone Exercises Knee flex strengthening Prone Exercise Name Ecc/Conc knee flex Equipment Used 4#, Rolled small hand towel at bend of knee, rolled towel underdistal thigh Reps/Minutes 11' Comments added HEP Sitting Exercises Passive knee flex Side left Resistance AAROM flexion Equipment Used green 65 Cm Tball AAROM, plinth Reps/Minutes 5' Comments L knee: 131-135 deg deg Self-Care/Home Management Treatment Education Patient Education Home Exercise Program Other Education Intiated eccentric HS curl prone AROM home/ 4# leg wt in tx and supine using TB #2 for home good demo in tx today. PT-OP-R Modalities Start: 04/23/20 17:37 Freq: Status: Active Protocol: Document 07/05/20 13:48 SP (Rec: 07/05/20 15:05 SP [id number]) Hot Pack/Cold Pack Treatment Cold Pack Location L knee cryocuff Patient Position Hooklying Treatment Duration (minutes) 10 Patient Tolerance Good Comments blanket used to cover pt. 2 pillows under head no symptoms, BP not assessed. PT-OP-T Assessment and Plan Start: 04/23/20 17:37 Freq: Status: Active Protocol: Document 07/05/20 13:48 SP (Rec: 07/05/20 15:05 SP [id number]) Physical Therapy Assessment Goals Four Impairment Decreased L knee AROM (10-52 deg's) Short Term Goal (STG) Increase L knee AROM 0-120 deg 's. (AROM before surgery: 5- 100 deg's). (06/27/20: L knee (sup) AROM: flex is 120 deg's @ end of therapy; PROM 125 de'gs, : 1-126 deg AROM, 133 deg PROM; 07/05/20: supine AROM 126deg post bike & seated flexion over tball AAROM) PROM ) STG Duration 06/21/20 (06/25/20: MET GOAL) Retirement Goal (LTG) Increase L knee AROM 0-125 deg 's. (07/02/20: L knee AROM is 120 deg's flexion) LTG Duration 06/28/20 Three Impairment Pt unable to return to her prior pool exercise program, independently Short Term Goal (STG) Pt scar will be healed with good scar mobility and L knee AROM at least 5-95 deg's (06/25/20: Good scar mobility. L knee AROM in sitting is 4- 110 deg's) STG Duration 06/28/20 (05/31/20: MET GOAL) Neck Skewer Goal (LTG) Pt able to get into the local pool and do her prior ex program with modifications as needed. LTG Duration 08/16/20 Two Impairment Antalgic gait using a FWW for safety Short Term Goal (STG) Pt will be able to walk with a normal gait pattern without a walker. (06/27/20: Very slight antalgic gait noted) STG Duration 07/05/20 (06/27/20: MET GOAL) Retirement Goal (LTG) Pt will be able to walk a long distance of 6 blks or 2-3 miles with mild to no difficulty. LTG Duration 08/16/20 One Impairment Lacks appropriate self care HEP Neck Skewer Goal (LTG) Pt will be independent in a self care HEP for continued L knee/hip exercises. HEP TO DATE: INSTRUCTIONS GIVEN: *Do's/Don 'ts of lymph massage, *Quad/ Iliopsas stretch. *LE self lymph massage. AROM: *Bilateral BKFO, * Sitting knee ext, *Supine Ankle pumps, and *written I/S for knee flex stretch f/b 10 active stretches. RECOMMENDED POOL EXERCISES: * Knee flexion exercises. LTG Duration 08/16/20 (07/02/20: Progressing) Assessment Summary Assessment Pt states no pain and happy with ROM gains, improved in AAROM 126 deg on upright bike to 135 deg seated knee flexion over Tball then AROM supine 126 deg heel slide on table during tx today. Pt is making gains in ROM improved knee flexion and with cuing for upright posture trunk stability during gait leaving. Intiated supine ecc> concentric knee flexion emphasis using TB for home carry over to facilitaiton HS with good response, unable find a hand out for visual but pt understood the set up and performance during tx using provided TB and continued prone HS curl eccentrically at home. Continues to not demonstrate parasympathetic reactions during tx today, not need assess BP. Physical Therapy Plan Frequency and Duration Frequency of Treatment Daily x 1 wks >3x/wk Plan of Care Start Date 06/24/20 Plan of Care End Date 08/16/20 Therapeutic Interventions Therapeutic Interventions Gait Training,Home Exercise Program,Joint Mobilizations, Manual Therapy,Patient/ Caregiver Education,Self-Care/ Home Management,Soft Tissue Mobilization,Therapeutic Exercises Modalities Cold Pack/Ice Massage Other Therapeutic Interventions Independent self care aquatic exercise when pool opens. Next Visit Focus/Plan Next Note Type Treatment Note Next Visit Plan Reivew HEP incorporating stretches and eccentric strengthening at home learned. (Note: Pt insurance [place]). Pt is s/p L TKA (04/21/20) & Manipulation (06/24/20) for improving knee flex to at least 120 deg's or more. Monitor BP/HR during therapy due to occasional sympathetic response to stretching/pain. PT daily for 1 more week per surgeon request, then therapy 1-2x/week as needed (2-4 more wks). Focus therapy on L knee ROM with flex stretch with close supervision because pt tends to allow overstretch f/b sympathetic response of nausea, shaking of hands/UE's. Secondary focus is to improve hamstring strength in new achieved PROM. End Cryotherapy/Cryocuff in semi- reclined position with blanket for warmth.
--- NOTE | 2020-07-09 11:23 | PT.OTN ---
Current Diagnoses Unilateral primary osteoarthritis, left knee (07/09/20) Effusion, right knee (07/09/20) Pain in right knee (07/09/20) Muscle weakness (generalized) (07/09/20) Other abnormalities of gait and mobility (07/09/20) Physical Therapy Treatment Note PT-OP-A Visit Information Start: 04/23/20 17:37 Freq: Status: Active Protocol: Document 07/09/20 10:33 SP (Rec: 07/09/20 11:51 SP [id number]) Out-Patient Physical Therapy Visit Information Visit Information Visit Type Treatment Note Visit Start Time 10:33 Visit Stop Time 11:23 Total Visit Minutes 50 Visit Number 27 Number of [employer] INSTALLER Visits 4 Evaluation Information Evaluation Date 04/29/20 Precautions Precautions Arthritis, Back & Neck pain since surgery. PT-OP-B Current Condition Start: 04/23/20 17:37 Freq: Status: Active Protocol: Document 06/24/20 13:41 LRN (Rec: 06/24/20 14:25 LRN [id number]) Current Condition History of Current Condition Onset Date 06/21/20 Current Complaints L knee limited ROM. History of Current Condition Pt is a 75 yo female who underwent a L TKA on 04/21/20 and is now returning after a L knee manipulation on 06/21/20. Pt has sensation in the L LE with no complaints of pain with pressure at the knee. Pt has sensation to touch, hot/ cold, pressure (decreased). Prior Treatments and Tests L TKA rehab 04/29/20 - 06/21/20. Developmental History Developmental History R Anterior cruciate and MCL surgery after ski fall (1976) followed by surgery to repair and was in a full leg cast for 6 weeks. Pt reports arthritis set and has had injections in the R knee since . Treatment Goals Patient/Caregiver Goals At minimal 120 deg's L knee active flexion. Prior Functional Status Baseline Function- ADL's Modified Independent Baseline Function- Mobility Independent Baseline Function- Gait Antalgic Gait, stiffness of R knee Baseline Function- Other In surgery: 140 deg's L knee flexion. Current Functional Impairments (Reported) Functional Limitations- ADL's Tired, from AM L knee manipulation. Functional Limitations- Mobility/Gait Ambs with an antalgic gait. Functional Limitations- Other L knee AROM: Sittin deg's. Supine active: 110 deg's; passive: 120 deg's. Personal Factors Other Personal Factors That May Effect Lives alone. Therapy/Recovery PT-OP-C Subjective Start: 04/23/20 17:37 Freq: Status: Active Protocol: Document 07/09/20 10:33 SP (Rec: 07/09/20 11:51 SP [id number]) OP-PT Subjective Patient Comments Patient Comments Pt stated medial knee pain that wakes her up in night sidelying withno pillows between knees. Has a follow up with ortho today. She states is still difficult to walk down stairs and trying to be more aware of knee bending and not using calf during gait and HEPs. Patient Reported Progress Improving PT-OP-G Mobility & Gait Start: 04/23/20 17:37 Freq: Status: Active Protocol: Document 07/02/20 10:34 LRN (Rec: 07/02/20 11:58 LRN [id number]) OP Gait Assessment Comments Gait Comments Pt holds L knee moderately stiff with gait. PT-OP-H Neuro Start: 04/23/20 17:37 Freq: Status: Active Protocol: Document 07/02/20 10:34 LRN (Rec: 07/02/20 11:58 LRN [id number]) Vital Signs Pulse Resting Pulse at Rest (bpm) 77 Immediately upon sitting from supine Pulse at Rest (bpm) 66 Blood Pressure Resting Blood Pressure (90/60-120/80 mmHg) 109/75 Blood Pressure Source Manual Cuff,Left Upper Extremity Immediately upon sitting from supine Blood Pressure (90/60-120/80 mmHg) 115/82 H Blood Pressure Source Automatic Cuff,Left Upper Extremity PT-OP-J Posture/Palpation/Skin Start: 04/23/20 17:37 Freq: Status: Active Protocol: Document 04/29/20 12:47 LRN (Rec: 04/29/20 14:04 LRN [id number]) Palpation Assessment Location L knee Palpation Location Around L knee joint Palpation Findings Edema,Soft Tissue Tightness, Tenderness Palpation Details Increased temperature PT-OP-K Range of Motion Start: 04/23/20 17:37 Freq: Status: Active Protocol: Document 07/09/20 10:33 SP (Rec: 07/09/20 11:51 SP [id number]) Knee Goniometric Range of Motion Knee Supine L knee AROM Flexion Active (degrees) 120 Extension Active (degrees) 0 Comments pre activity 120 deg AROM supine, post activity 127 deg PT-OP-M Strength Start: 04/23/20 17:37 Freq: Status: Active Protocol: Document 06/24/20 13:41 LRN (Rec: 06/24/20 17:29 LRN [id number]) Knee Strength Knee Manual Muscle Testing Right Flexion (S2) 5 Normal Extension (L3) 5 Normal Left Flexion (S2) 4+ Good+ Extension (L3) 4+ Good+ PT-OP-Q Treatments Start: 04/23/20 17:37 Freq: Status: Active Protocol: Document 07/09/20 10:33 SP (Rec: 07/09/20 11:51 SP [id number]) Cardio Equipment Bicycle (Upright) Duration (Minutes) 8 Resistance 0 Seat Position Min Other forward/ backward w/ankle DF120*>125* Therapeutic Exercises Supine Exercises SAQ leg off table w/quad fac Supine Exercise Name cued L hip stationary ( assessed in PT only) Side left Comments cued firing VMO into end range ext, awareness ankle neutral w/ flexion knee flexion Supine Exercise Name concentric/ eccentric- added to HEP Side left Resistance manual (HEP TB #2) Reps/Minutes 2x8 heel slides (home-anchored in door) Comments good HS facilitation Quad/Iliopsoas stretch Supine Exercise Name L Leg off table for Quad/ Iliopsoas stretch Side left Equipment Used off table Reps/Minutes 4' Comments With MFR to quads superior glide w/ knee flexion Prone Exercises Knee flex strengthening Prone Exercise Name Ecc/Conc knee flex Equipment Used 4#, Rolled small hand towel at bend of knee, rolled towel underdistal thigh Reps/Minutes 5' Comments added HEP (AROM against gravity) Knee flex Prone Exercise Name Passive knee flex w/MFR to Quads Resistance AAROM Equipment Used towel roll behind knee Reps/Minutes 5 min Comments 130 deg (measured w/out towel roll) Sitting Exercises Passive knee flex Sitting Exercise Name assist alignment Side left Resistance AAROM flexion Equipment Used green 65 Cm Tball AAROM, 31 plinth Reps/Minutes 5' Comments L knee: 135 deg Manual Therapy Treatment Soft Tissue Mobilization L knee scar Body Location L knee scar, patellar tendon, distal quad Mobilization Type Myofascial Release Intensity/Depth Moderate Body Position Clif stretch positioning Comments good response- education twisting motion pre- inferior glide with knee flexion Self-Care/Home Management Treatment Education Patient Education Home Exercise Program Other Education Discussed use of rolling stick to calf, HS, quad in sitting at home. Activities Self-Care/Home Management Activities Discussed use of pillows between legs sidelying for alignment of L knee, should help with discomfort/ pain. PT-OP-R Modalities Start: 04/23/20 17:37 Freq: Status: Active Protocol: Document 07/09/20 10:33 SP (Rec: 07/09/20 11:51 SP [id number]) Hot Pack/Cold Pack Treatment Cold Pack Location L knee cryocuff Patient Position Hooklying Treatment Duration (minutes) 10 Patient Tolerance Good Comments No blankets needed today. 2 pillows under head no symptoms, BP not assessed. PT-OP-T Assessment and Plan Start: 04/23/20 17:37 Freq: Status: Active Protocol: Document 07/09/20 10:33 SP (Rec: 07/09/20 11:51 SP [id number]) Physical Therapy Assessment Goals Four Impairment Decreased L knee AROM (10-52 deg's) Short Term Goal (STG) Increase L knee AROM 0-120 deg 's. (AROM before surgery: 5- 100 deg's). (06/27/20: L knee (sup) AROM: flex is 120 deg's @ end of therapy; PROM 125 de'gs, : 0-127 deg AROM, 136 deg PROM; 07/05/20: supine AROM 125deg post bike & seated flexion over tball 136 AAROM) STG Duration 06/21/20 (06/25/20: MET GOAL) Fci Goal (LTG) Increase L knee AROM 0-125 deg 's. 07/09/20: Progressing consistancy: L knee AROM is 126 deg post activity end tx. LTG Duration 06/28/20 progressing Three Impairment Pt unable to return to her prior pool exercise program, independently Short Term Goal (STG) Pt scar will be healed with good scar mobility and L knee AROM at least 5-95 deg's (06/25/20: Good scar mobility. 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 LTG Duration 08/16/20 Two Impairment Antalgic gait using a FWW for safety Short Term Goal (STG) Pt will be able to walk with a normal gait pattern without a walker. 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 LTG Duration 08/16/20 One Impairment Lacks appropriate self care HEP Dispatcher Chief [employer] Slurry Goal (LTG) Pt will be independent in a self care HEP for continued L knee/hip exercises. HEP TO DATE: INSTRUCTIONS GIVEN: *Do's/Don 'ts of lymph massage, *Quad/ Iliopsas stretch. *LE self lymph massage. AROM: *Bilateral BKFO, * Sitting knee ext, *Supine Ankle pumps, and *written I/S for knee flex stretch f/b 10 active stretches. RECOMMENDED POOL EXERCISES: * Knee flexion exercises. LTG Duration 08/16/20 (07/02/20: Progressing) Progress Towards Goals Progress Towards Goals Progressing Toward Goals Progress Comments Met STG #4, #2, progressing consistancy of goal #3. Assessment Summary Assessment Pt stated only pain at night sidelying but will continue use of pillow between knees for alignment. Pt is making gains in ROM L knee AROM 0-126 *, 0-136* PROM supine, seated over Tball raised plinth and 130* prone PROM. Pt is not having adverse parasympathetic reactions during PT now. Is compliant with all HEP doing in PT. Physical Therapy Plan Frequency and Duration Frequency of Treatment Daily x 1 wks >3x/wk Plan of Care Start Date 06/24/20 Plan of Care End Date 08/16/20 Therapeutic Interventions Therapeutic Interventions Gait Training,Home Exercise Program,Joint Mobilizations, Manual Therapy,Patient/ Caregiver Education,Self-Care/ Home Management,Soft Tissue Mobilization,Therapeutic Exercises Modalities Cold Pack/Ice Massage Other Therapeutic Interventions Independent self care aquatic exercise when pool opens. Next Visit Focus/Plan Next Note Type Treatment Note Next Visit Plan Assess response to manual, Reivew HEP incorporating stretches and eccentric strengthening at home learned. Next tx incorporate eccentric stair mgt, eccentric calf raises on bottom step ( discussed but not performed) and maybe standing lunge mobilty LE up 2 steps, gait quality in mirror. (Note: Pt insurance [place]). Pt is s/p L TKA (04/21/20) & Manipulation (06/24/20) for improving knee flex to at least 120 deg's or more. Monitor BP/HR during therapy due to occasional sympathetic response to stretching/pain. PT daily for 1 more week per surgeon request, then therapy 1-2x/week as needed (2-4 more wks). Focus therapy on L knee ROM with flex stretch with close supervision because pt tends to allow overstretch f/b sympathetic response of nausea, shaking of hands/UE's. Secondary focus is to improve hamstring strength in new achieved PROM. End Cryotherapy/Cryocuff in semi- reclined position with blanket for warmth.
[2020-07-11 10:33] VITALS: BP 109/76; BP 111/79; PULSE 63; PULSE 66
--- NOTE | 2020-07-11 17:00 | PT.OTN ---
Current Diagnoses Unilateral primary osteoarthritis, left knee (07/11/20) Effusion, right knee (07/11/20) Pain in right knee (07/11/20) Muscle weakness (generalized) (07/11/20) Other abnormalities of gait and mobility (07/11/20) Physical Therapy Treatment Note PT-OP-A Visit Information Start: 04/23/20 17:37 Freq: Status: Active Protocol: Document 07/11/20 10:33 LRN (Rec: 07/11/20 11:21 LRN [id number]) Out-Patient Physical Therapy Visit Information Visit Information Visit Type Treatment Note Visit Start Time 10:33 Visit Stop Time 11:23 Total Visit Minutes 50 Visit Number 28 Evaluation Information Evaluation Date 04/29/20 Precautions Precautions Arthritis, Back & Neck pain since surgery. PT-OP-B Current Condition Start: 04/23/20 17:37 Freq: Status: Active Protocol: Document 06/24/20 13:41 LRN (Rec: 06/24/20 14:25 LRN [id number]) Current Condition History of Current Condition Onset Date 06/21/20 Current Complaints L knee limited ROM. History of Current Condition Pt is a 75 yo female who underwent a L TKA on 04/21/20 and is now returning after a L knee manipulation on 06/21/20. Pt has sensation in the L LE with no complaints of pain with pressure at the knee. Pt has sensation to touch, hot/ cold, pressure (decreased). Prior Treatments and Tests L TKA rehab 04/29/20 - 06/21/20. Developmental History Developmental History R Anterior cruciate and MCL surgery after ski fall (1976) followed by surgery to repair and was in a full leg cast for 6 weeks. Pt reports arthritis set and has had injections in the R knee since . Treatment Goals Patient/Caregiver Goals At minimal 120 deg's L knee active flexion. Prior Functional Status Baseline Function- ADL's Modified Independent Baseline Function- Mobility Independent Baseline Function- Gait Antalgic Gait, stiffness of R knee Baseline Function- Other In surgery: 140 deg's L knee flexion. Current Functional Impairments (Reported) Functional Limitations- ADL's Tired, from AM L knee manipulation. Functional Limitations- Mobility/Gait Ambs with an antalgic gait. Functional Limitations- Other L knee AROM: Sittin deg's. Supine active: 110 deg's; passive: 120 deg's. Personal Factors Other Personal Factors That May Effect Lives alone. Therapy/Recovery PT-OP-C Subjective Start: 04/23/20 17:37 Freq: Status: Active Protocol: Document 07/11/20 10:33 LRN (Rec: 07/11/20 11:21 LRN [id number]) OP-PT Subjective Patient Comments Patient Comments Doing well. Post op 2 days ago and was happy with progress. Final post op appt in 1 month. PT-OP-G Mobility & Gait Start: 04/23/20 17:37 Freq: Status: Active Protocol: Document 07/02/20 10:34 LRN (Rec: 07/02/20 11:58 LRN [id number]) OP Gait Assessment Comments Gait Comments Pt holds L knee moderately stiff with gait. PT-OP-H Neuro Start: 04/23/20 17:37 Freq: Status: Active Protocol: Document 07/11/20 10:33 LRN (Rec: 07/11/20 11:21 LRN [id number]) Vital Signs Pulse Resting Pulse at Rest (bpm) 66 Immediately upon sitting from supine Pulse at Rest (bpm) 63 Blood Pressure Resting Blood Pressure (90/60-120/80 mmHg) 111/79 Blood Pressure Source Manual Cuff,Left Upper Extremity Immediately upon sitting from supine Blood Pressure (90/60-120/80 mmHg) 109/76 Blood Pressure Source Automatic Cuff,Left Upper Extremity PT-OP-J Posture/Palpation/Skin Start: 04/23/20 17:37 Freq: Status: Active Protocol: Document 04/29/20 12:47 LRN (Rec: 04/29/20 14:04 LRN [id number]) Palpation Assessment Location L knee Palpation Location Around L knee joint Palpation Findings Edema,Soft Tissue Tightness, Tenderness Palpation Details Increased temperature PT-OP-K Range of Motion Start: 04/23/20 17:37 Freq: Status: Active Protocol: Document 07/11/20 10:33 LRN (Rec: 07/11/20 11:21 LRN [id number]) Knee Goniometric Range of Motion Knee Supine R knee AROM Knee ROM WFL Yes Patient Position Supine Flexion Active (degrees) 128 Flexion Passive (degrees) 130 Supine L knee AROM Knee ROM WFL No Patient Position Supine Flexion Active (degrees) 125 Flexion Passive (degrees) 128 Extension Active (degrees) 0 Sitting L knee AROM Knee ROM WFL No Patient Position Sitting Flexion Passive (degrees) 123 Comments PROM was on [employer], limiting mobility due to ankle. PT-OP-M Strength Start: 04/23/20 17:37 Freq: Status: Active Protocol: Document 06/24/20 13:41 LRN (Rec: 06/24/20 17:29 LRN [id number]) Knee Strength Knee Manual Muscle Testing Right Flexion (S2) 5 Normal Extension (L3) 5 Normal Left Flexion (S2) 4+ Good+ Extension (L3) 4+ Good+ PT-OP-Q Treatments Start: 04/23/20 17:37 Freq: Status: Active Protocol: Document 07/11/20 10:33 LRN (Rec: 07/11/20 11:21 LRN [id number]) Cardio Equipment Recumbent Elliptical ([employer]) Duration (Minutes) 6 Seat Position 1 Other PROM L knee flex stretching. PROM is 123 deg's Therapeutic Exercises Supine Exercises knee flexion Supine Exercise Name concentric/ eccentric- added to HEP Side left Resistance manual (HEP TB #2) Comments good HS facilitation Heel Slides Supine Exercise Name Repetitive passive knee flex, & Ecc/Conc strengthening Side left Equipment Used Strap & TBall Reps/Minutes 20' Comments 125 deg AROM slide on table, passive 128 deg Prone Exercises Knee flex Prone Exercise Name Passive knee flex w/MFR to Quads Resistance AAROM Equipment Used towel roll behind knee Reps/Minutes 5 min Comments 128 deg (measured w/out towel roll) Manual Therapy Treatment Soft Tissue Mobilization L knee scar Body Location Inferomedial to distal scar Mobilization Type Manual Lymphatic Drainage Intensity/Depth Moderate Body Position Hooklying Comments Pin & move at ankle PT-OP-R Modalities Start: 04/23/20 17:37 Freq: Status: Active Protocol: Document 07/11/20 10:33 LRN (Rec: 07/11/20 11:21 LRN [id number]) Hot Pack/Cold Pack Treatment Cold Pack Location L knee cryocuff Patient Position Hooklying Treatment Duration (minutes) 10 Patient Tolerance Good Comments No blankets needed today. 2 pillows under head no symptoms, BP not assessed. PT-OP-T Assessment and Plan Start: 04/23/20 17:37 Freq: Status: Active Protocol: Document 07/11/20 10:33 LRN (Rec: 07/11/20 11:21 LRN [id number]) Physical Therapy Assessment Goals Four Impairment Decreased L knee AROM (10-52 deg's) Short Term Goal (STG) Increase L knee AROM 0-120 deg 's. (AROM before surgery: 5- 100 deg's). (07/11/20: 0-125 deg AROM, 128 deg PROM) STG Duration 06/21/20 (06/25/20: MET GOAL) Burner Tender Goal (LTG) Increase L knee AROM 0-125 deg 's. (07/11/20: Progressing consistancy: L knee AROM is 125 deg, post activity 123 deg 's). LTG Duration 06/28/20 progressing Three Impairment Pt unable to return to her prior pool exercise program, independently Short Term Goal (STG) Pt scar will be healed with good scar mobility and L knee AROM at least 5-95 deg's (06/25/20: Good scar mobility. L knee AROM in sitting is 4- 110 deg's; 07/09/20: manual and self STMs scar 0-126 deg AROM) STG Duration 06/28/20 (05/31/20: MET GOAL) Burner Tender Goal (LTG) Pt able to get into the local pool and do her prior ex program with modifications as needed. LTG Duration 08/16/20 Two Impairment Antalgic gait using a FWW for safety Short Term Goal (STG) Pt will be able to walk with a normal gait pattern without a walker. (06/27/20: Very slight antalgic gait noted) STG Duration 07/05/20 (06/27/20: MET GOAL) Skilled Nursing Goal (LTG) Pt will be able to walk a long distance of 6 blks or 2-3 miles with mild to no difficulty. LTG Duration 08/16/20 One Impairment Lacks appropriate self care HEP Skilled Nursing Goal (LTG) Pt will be independent in a self care HEP for continued L knee/hip exercises. HEP TO DATE: INSTRUCTIONS GIVEN: *Do's/Don 'ts of lymph massage, *Quad/ Iliopsas stretch. *LE self lymph massage. AROM: *Bilateral BKFO, * Sitting knee ext, *Supine Ankle pumps, and *written I/S for knee flex stretch f/b 10 active stretches. RECOMMENDED POOL EXERCISES: * Knee flexion exercises. LTG Duration 08/16/20 (07/02/20: Progressing) Progress Towards Goals Progress Comments L knee AROM is 125 deg's (R is 128 deg's) after supine PROM stretching, AROM is 123 deg's & PROM is 128 deg's (R is 130 deg's) Assessment Summary Assessment After Prone PROM of L knee pt demonstrated less AROM, probably due to limitation of PT with PROM overpressure avoidance, due to her sometimes sympathetic response when stretching too aggressively. Pt appears to do better with self PROM in supine stretching. Pt demonstrates good understanding of stretches and eccentric strengthening of previously learned ex's. Physical Therapy Plan Frequency and Duration Frequency of Treatment 2x/Week Plan of Care Start Date 06/24/20 Plan of Care End Date 08/16/20 Next Visit Focus/Plan Next Note Type Treatment Note Next Visit Plan Assess response to manual STM of inferomedial to distal scar . Next tx incorporate eccentric stair mgt, eccentric calf raises on bottom step ( discussed but not performed) and maybe standing lunge mobilty LE up 2 steps, gait quality in mirror. (Note: Pt insurance [place]). Pt is s/p L TKA (04/21/20) & Manipulation (06/24/20) for improving knee flex to at least 120 deg's or more. Monitor BP/HR during therapy due to occasional sympathetic response to stretching/pain. PT therapy 1-2x/week as needed (2-3 more wks). Focus therapy on L knee ROM with flex stretch with close supervision because pt tends to allow overstretch f/b sympathetic response of nausea , shaking of hands/UE's. Secondary focus is to improve hamstring strength in new achieved PROM. End Cryotherapy/Cryocuff in semi- reclined position with blanket for warmth.
[2020-07-12 12:14] VITALS: BP 118/78; PULSE 83
--- NOTE | 2020-07-12 14:24 | PT.OTN ---
Current Diagnoses Unilateral primary osteoarthritis, left knee (07/12/20) Effusion, right knee (07/12/20) Pain in right knee (07/12/20) Muscle weakness (generalized) (07/12/20) Other abnormalities of gait and mobility (07/12/20) Physical Therapy Treatment Note PT-OP-A Visit Information Start: 04/23/20 17:37 Freq: Status: Active Protocol: Document 07/12/20 12:14 LRN (Rec: 07/12/20 14:20 LRN [id number]) Out-Patient Physical Therapy Visit Information Visit Information Visit Type Treatment Note Visit Start Time 13:30 Visit Stop Time 14:19 Total Visit Minutes 49 Visit Number 29 Evaluation Information Evaluation Date 04/29/20 Precautions Precautions Arthritis, Back & Neck pain since surgery. PT-OP-B Current Condition Start: 04/23/20 17:37 Freq: Status: Active Protocol: Document 06/24/20 13:41 LRN (Rec: 06/24/20 14:25 LRN [id number]) Current Condition History of Current Condition Onset Date 06/21/20 Current Complaints L knee limited ROM. History of Current Condition Pt is a 75 yo female who underwent a L TKA on 04/21/20 and is now returning after a L knee manipulation on 06/21/20. Pt has sensation in the L LE with no complaints of pain with pressure at the knee. Pt has sensation to touch, hot/ cold, pressure (decreased). Prior Treatments and Tests L TKA rehab 04/29/20 - 06/21/20. Developmental History Developmental History R Anterior cruciate and MCL surgery after ski fall (1976) followed by surgery to repair and was in a full leg cast for 6 weeks. Pt reports arthritis set and has had injections in the R knee since . Treatment Goals Patient/Caregiver Goals At minimal 120 deg's L knee active flexion. Prior Functional Status Baseline Function- ADL's Modified Independent Baseline Function- Mobility Independent Baseline Function- Gait Antalgic Gait, stiffness of R knee Baseline Function- Other In surgery: 140 deg's L knee flexion. Current Functional Impairments (Reported) Functional Limitations- ADL's Tired, from AM L knee manipulation. Functional Limitations- Mobility/Gait Ambs with an antalgic gait. Functional Limitations- Other L knee AROM: Sittin deg's. Supine active: 110 deg's; passive: 120 deg's. Personal Factors Other Personal Factors That May Effect Lives alone. Therapy/Recovery PT-OP-C Subjective Start: 04/23/20 17:37 Freq: Status: Active Protocol: Document 07/12/20 12:14 LRN (Rec: 07/12/20 14:20 LRN [id number]) OP-PT Subjective Patient Comments Patient Comments States she just did some stretching at home. PT-OP-G Mobility & Gait Start: 04/23/20 17:37 Freq: Status: Active Protocol: Document 07/02/20 10:34 LRN (Rec: 07/02/20 11:58 LRN [id number]) OP Gait Assessment Comments Gait Comments Pt holds L knee moderately stiff with gait. PT-OP-H Neuro Start: 04/23/20 17:37 Freq: Status: Active Protocol: Document 07/12/20 12:14 LRN (Rec: 07/12/20 14:20 LRN [id number]) Vital Signs Pulse Resting Pulse at Rest (bpm) 83 Blood Pressure Resting Blood Pressure (90/60-120/80 mmHg) 118/78 Blood Pressure Source Manual Cuff,Left Upper Extremity PT-OP-J Posture/Palpation/Skin Start: 04/23/20 17:37 Freq: Status: Active Protocol: Document 04/29/20 12:47 LRN (Rec: 04/29/20 14:04 LRN [id number]) Palpation Assessment Location L knee Palpation Location Around L knee joint Palpation Findings Edema,Soft Tissue Tightness, Tenderness Palpation Details Increased temperature PT-OP-K Range of Motion Start: 04/23/20 17:37 Freq: Status: Active Protocol: Document 07/12/20 12:14 LRN (Rec: 07/12/20 14:20 LRN [id number]) Knee Goniometric Range of Motion Knee Supine L knee AROM Knee ROM WFL No Patient Position Supine Flexion Active (degrees) 127 Flexion Passive (degrees) 127 Extension Active (degrees) 0 Comments pre activity 118 deg AROM supine, post activity 127 deg Sitting L knee AROM Knee ROM WFL No Patient Position Sitting Flexion Passive (degrees) 118 PT-OP-M Strength Start: 04/23/20 17:37 Freq: Status: Active Protocol: Document 06/24/20 13:41 LRN (Rec: 06/24/20 17:29 LRN [id number]) Knee Strength Knee Manual Muscle Testing Right Flexion (S2) 5 Normal Extension (L3) 5 Normal Left Flexion (S2) 4+ Good+ Extension (L3) 4+ Good+ PT-OP-Q Treatments Start: 04/23/20 17:37 Freq: Status: Active Protocol: Document 07/12/20 12:14 LRN (Rec: 07/12/20 14:20 LRN [id number]) Therapeutic Exercises Supine Exercises SAQ leg off table w/quad fac Supine Exercise Name Knee flexion with Quad stretch Side left Comments Cued Heel to buttock movement Quad/Iliopsoas stretch Supine Exercise Name L Leg off table for Quad/ Iliopsoas stretch Side left Equipment Used off table Reps/Minutes 4' Comments With MFR to quads superior glide w/ knee flexion Heel Slides Supine Exercise Name Repetitive passive knee flex, & Ecc/Conc strengthening Side left Equipment Used Strap & TBall Reps/Minutes 20' Comments 120 deg AROM slide on table, passive 125 deg Sitting Exercises Passive knee flex Sitting Exercise Name assist flexion & alignment Side left Resistance AAROM & PROM flexion Reps/Minutes 2' Standing Exercises Stretch knee flexion off step Standing Exercise Name Knee flex stretch on descent Side left Reps/Minutes 2' Self-Care/Home Management Treatment Education Patient Education Home Exercise Program Activities Self-Care/Home Management Activities Issued & reviewed HEP: RICE treatment for edema of L knee. PT-OP-R Modalities Start: 04/23/20 17:37 Freq: Status: Active Protocol: Document 07/12/20 12:14 LRN (Rec: 07/12/20 14:20 LRN [id number]) Hot Pack/Cold Pack Treatment Cold Pack Location L knee cryocuff Patient Position Hooklying Treatment Duration (minutes) 10 Patient Tolerance Good Comments No blankets needed today. 2 pillows under head no symptoms, BP not assessed. PT-OP-T Assessment and Plan Start: 04/23/20 17:37 Freq: Status: Active Protocol: Document 07/12/20 12:14 LRN (Rec: 07/12/20 14:20 LRN [id number]) Physical Therapy Assessment Goals Four Impairment Decreased L knee AROM (10-52 deg's) Short Term Goal (STG) Increase L knee AROM 0-120 deg 's. (AROM before surgery: 5- 100 deg's). (5/6/21: 0-125 deg AROM, 128 deg PROM) STG Duration 06/21/20 (06/25/20: MET GOAL) Fci Goal (LTG) Increase L knee AROM 0-125 deg 's. (07/11/20: Progressing consistancy: L knee AROM is 125 deg, post activity 123 deg 's). LTG Duration 06/28/20 progressing Three Impairment Pt unable to return to her prior pool exercise program, independently Short Term Goal (STG) Pt scar will be healed with good scar mobility and L knee AROM at least 5-95 deg's (06/25/20: Good scar mobility. L knee AROM in sitting is 4- 110 deg's; 07/09/20: manual and self STMs scar 0-126 deg AROM) STG Duration 06/28/20 (05/31/20: MET GOAL) Hand Surgeon Goal (LTG) Pt able to get into the local pool and do her prior ex program with modifications as needed. LTG Duration 08/16/20 Two Impairment Antalgic gait using a FWW for safety Short Term Goal (STG) Pt will be able to walk with a normal gait pattern without a walker. (06/27/20: Very slight antalgic gait noted) STG Duration 07/05/20 (06/27/20: MET GOAL) Hand Surgeon Goal (LTG) Pt will be able to walk a long distance of 6 blks or 2-3 miles with mild to no difficulty. LTG Duration 08/16/20 One Impairment Lacks appropriate self care HEP Hand Surgeon Goal (LTG) Pt will be independent in a self care HEP for continued L knee/hip exercises. HEP TO DATE: INSTRUCTIONS GIVEN: *Do's/Don 'ts of lymph massage, *Quad/ Iliopsas stretch. *LE self lymph massage. AROM: *Bilateral BKFO, * Sitting knee ext, *Supine Ankle pumps, and *written I/S for knee flex stretch f/b 10 active stretches. RECOMMENDED POOL EXERCISES: * Knee flexion exercises. LTG Duration 08/16/20 (07/02/20: Progressing) Progress Towards Goals Progress Comments L knee AROM improved with therapy from 118 deg's to 127 deg's. Overall pt L knee flexion mobility is 127 deg's active and passive. Assessment Summary Assessment No change with L knee ROM since MFR of mediodistal healed scar, but scar and tissue mobility is less restricted. Pt L knee remains tight with descending stair. She gets most mobility improvement with supine assisted and active heel slides. Pt has tolerated treatment well lately with no onset of sympathetic response after therapy. Ice to knee ending with blanket on trunk. Physical Therapy Plan Frequency and Duration Frequency of Treatment 2x/Week Plan of Care Start Date 06/24/20 Plan of Care End Date 08/16/20 Next Visit Focus/Plan Next Note Type Treatment Note Next Visit Plan Next tx review lymph massage & pt's HEP and help pt learn to focus on ROM ex's and strengthening in 2-3 weeks, then incorporate eccentric stair mgt, eccentric calf raises on bottom step ( discussed but not performed) and maybe standing lunge mobilty LE up 2 steps, gait quality in mirror. (Note: Pt insurance [place]). Pt is s/p L TKA (04/21/20) & Manipulation (06/24/20) for improving knee flex to at least 120 deg's or more. Monitor BP/HR during therapy due to occasional sympathetic response to stretching/pain. PT therapy 1-2x/week as needed (2-3 more wks). Focus therapy on L knee ROM with flex stretch with close supervision because pt tends to allow overstretch f/b sympathetic response of nausea , shaking of hands/UE's. Secondary focus is to improve hamstring strength in new achieved PROM. End Cryotherapy/Cryocuff in semi- reclined position with blanket for warmth.
[2020-07-16 12:47] VITALS: BP 100/75; BP 122/82; PULSE 65; PULSE 83
--- NOTE | 2020-07-16 17:01 | PT.OTN ---
Current Diagnoses Unilateral primary osteoarthritis, left knee (07/16/20) Effusion, right knee (07/16/20) Pain in right knee (07/16/20) Muscle weakness (generalized) (07/16/20) Other abnormalities of gait and mobility (07/16/20) Physical Therapy Treatment Note PT-OP-A Visit Information Start: 04/23/20 17:37 Freq: Status: Active Protocol: Document 07/16/20 12:47 LRN (Rec: 07/16/20 13:34 LRN [id number]) Out-Patient Physical Therapy Visit Information Visit Information Visit Type Treatment Note Visit Start Time 12:47 Visit Stop Time 13:40 Total Visit Minutes 53 Visit Number 30 Evaluation Information Evaluation Date 04/29/20 Precautions Precautions Arthritis, Back & Neck pain since surgery. PT-OP-B Current Condition Start: 04/23/20 17:37 Freq: Status: Active Protocol: Document 06/24/20 13:41 LRN (Rec: 06/24/20 14:25 LRN [id number]) Current Condition History of Current Condition Onset Date 06/21/20 Current Complaints L knee limited ROM. History of Current Condition Pt is a 75 yo female who underwent a L TKA on 04/21/20 and is now returning after a L knee manipulation on 06/21/20. Pt has sensation in the L LE with no complaints of pain with pressure at the knee. Pt has sensation to touch, hot/ cold, pressure (decreased). Prior Treatments and Tests L TKA rehab 04/29/20 - 06/21/20. Developmental History Developmental History R Anterior cruciate and MCL surgery after ski fall (1976) followed by surgery to repair and was in a full leg cast for 6 weeks. Pt reports arthritis set and has had injections in the R knee since . Treatment Goals Patient/Caregiver Goals At minimal 120 deg's L knee active flexion. Prior Functional Status Baseline Function- ADL's Modified Independent Baseline Function- Mobility Independent Baseline Function- Gait Antalgic Gait, stiffness of R knee Baseline Function- Other In surgery: 140 deg's L knee flexion. Current Functional Impairments (Reported) Functional Limitations- ADL's Tired, from AM L knee manipulation. Functional Limitations- Mobility/Gait Ambs with an antalgic gait. Functional Limitations- Other L knee AROM: Sittin deg's. Supine active: 110 deg's; passive: 120 deg's. Personal Factors Other Personal Factors That May Effect Lives alone. Therapy/Recovery PT-OP-C Subjective Start: 04/23/20 17:37 Freq: Status: Active Protocol: Document 07/16/20 12:47 LRN (Rec: 07/16/20 13:34 LRN [id number]) OP-PT Subjective Patient Comments Patient Comments States she returned the CPM today. Has been exercising, L knee feels stiff. PT-OP-G Mobility & Gait Start: 04/23/20 17:37 Freq: Status: Active Protocol: Document 07/02/20 10:34 LRN (Rec: 07/02/20 11:58 LRN [id number]) OP Gait Assessment Comments Gait Comments Pt holds L knee moderately stiff with gait. PT-OP-H Neuro Start: 04/23/20 17:37 Freq: Status: Active Protocol: Document 07/16/20 12:47 LRN (Rec: 07/16/20 13:34 LRN [id number]) Vital Signs Pulse Resting Pulse at Rest (bpm) 83 Immediately upon sitting from supine Pulse at Rest (bpm) 65 Pulse Assessment Method Pulse Ox/Monitor Blood Pressure Resting Blood Pressure (90/60-120/80 mmHg) 100/75 Blood Pressure Source Manual Cuff,Left Upper Extremity Immediately upon sitting from supine Blood Pressure (90/60-120/80 mmHg) 122/82 H Blood Pressure Source Automatic Cuff,Left Upper Extremity PT-OP-J Posture/Palpation/Skin Start: 04/23/20 17:37 Freq: Status: Active Protocol: Document 04/29/20 12:47 LRN (Rec: 04/29/20 14:04 LRN [id number]) Palpation Assessment Location L knee Palpation Location Around L knee joint Palpation Findings Edema,Soft Tissue Tightness, Tenderness Palpation Details Increased temperature PT-OP-K Range of Motion Start: 04/23/20 17:37 Freq: Status: Active Protocol: Document 07/16/20 12:47 LRN (Rec: 07/16/20 13:34 LRN [id number]) Knee Goniometric Range of Motion Knee Supine R knee AROM Knee ROM WFL Yes Patient Position Supine Flexion Active (degrees) 128 Flexion Passive (degrees) 130 Supine L knee AROM Knee ROM WFL No Patient Position Supine Flexion Active (degrees) 120 Flexion Passive (degrees) 128 Extension Active (degrees) 0 Comments pre activity 120 deg AROM supine, post activity 128 deg PT-OP-M Strength Start: 04/23/20 17:37 Freq: Status: Active Protocol: Document 06/24/20 13:41 LRN (Rec: 06/24/20 17:29 LRN [id number]) Knee Strength Knee Manual Muscle Testing Right Flexion (S2) 5 Normal Extension (L3) 5 Normal Left Flexion (S2) 4+ Good+ Extension (L3) 4+ Good+ PT-OP-Q Treatments Start: 04/23/20 17:37 Freq: Status: Active Protocol: Document 07/16/20 12:47 LRN (Rec: 07/16/20 13:34 LRN [id number]) Therapeutic Exercises Supine Exercises knee flexion Supine Exercise Name concentric/ eccentric- added to HEP Side left Resistance manual Comments manual resist with phys cuing Heel Slides Supine Exercise Name Repetitive passive knee flex, & Ecc/Conc strengthening Side left Equipment Used Strap & TBall Reps/Minutes 10' Comments 120 deg AROM slide on table, passive 128 deg Sitting Exercises LE lymph ex's Sitting Exercise Name LE seated lymph ex's ( concentrated on LLE). start<> end Side bilateral Reps/Minutes 25' Comments much v. cuing/training, some phys cuing Self-Care/Home Management Treatment Activities Self-Care/Home Management Activities Re-issued HEP: LE seated lymphedema exercises. PT-OP-R Modalities Start: 04/23/20 17:37 Freq: Status: Active Protocol: Document 07/16/20 12:47 LRN (Rec: 07/16/20 13:34 LRN [id number]) Hot Pack/Cold Pack Treatment Cold Pack Location L knee cryocuff Patient Position Hooklying Treatment Duration (minutes) 10 Patient Tolerance Good Comments No blankets needed today. 2 pillows under head no symptoms, BP not assessed. PT-OP-T Assessment and Plan Start: 04/23/20 17:37 Freq: Status: Active Protocol: Document 07/16/20 12:47 LRN (Rec: 07/16/20 13:34 LRN [id number]) Physical Therapy Assessment Goals Four Impairment Decreased L knee AROM (10-52 deg's) Short Term Goal (STG) Increase L knee AROM 0-120 deg 's. (AROM before surgery: 5- 100 deg's). (07/11/20: 0-125 deg AROM, 128 deg PROM) STG Duration 06/21/20 (06/25/20: MET GOAL) Health Education Aide Goal (LTG) Increase L knee AROM 0-125 deg 's. (07/11/20: Progressing consistancy: L knee AROM is 125 deg, post activity 123 deg 's). LTG Duration 06/28/20 progressing Three Impairment Pt unable to return to her prior pool exercise program, independently Short Term Goal (STG) Pt scar will be healed with good scar mobility and L knee AROM at least 5-95 deg's (06/25/20: Good scar mobility. L knee AROM in sitting is 4- 110 deg's; 07/09/20: manual and self STMs scar 0-126 deg AROM) STG Duration 06/28/20 (05/31/20: MET GOAL) Assisted Goal (LTG) Pt able to get into the local pool and do her prior ex program with modifications as needed. LTG Duration 08/16/20 Two Impairment Antalgic gait using a FWW for safety Short Term Goal (STG) Pt will be able to walk with a normal gait pattern without a walker. (06/27/20: Very slight antalgic gait noted) STG Duration 07/05/20 (06/27/20: MET GOAL) Health Education Aide Goal (LTG) Pt will be able to walk a long distance of 6 blks or 2-3 miles with mild to no difficulty. LTG Duration 08/16/20 One Impairment Lacks appropriate self care HEP Health Education Aide Goal (LTG) Pt will be independent in a self care HEP for continued L knee/hip exercises. HEP TO DATE: INSTRUCTIONS GIVEN: *Do's/Don 'ts of lymph massage, *Quad/ Iliopsas stretch. *LE self lymph massage. AROM: *Bilateral BKFO, * Sitting knee ext, *Supine Ankle pumps, and *written I/S for knee flex stretch f/b 10 active stretches. RECOMMENDED POOL EXERCISES: * Knee flexion exercises. LTG Duration 08/16/20 (07/02/20: Progressing) Assessment Summary Assessment Pt needed much cuing and I/S for performing LE lymph ex's with clarifications written on handout issued for home self care. Pt L knee mobility improved in flexibility more quickly than in past. Physical Therapy Plan Frequency and Duration Frequency of Treatment 2x/Week Plan of Care Start Date 06/24/20 Plan of Care End Date 08/16/20 Next Visit Focus/Plan Next Note Type Treatment Note Next Visit Plan Emphasis on pt learning to focus on ROM ex's and strengthening 1-2 weeks, then incorporate eccentric stair mgt, eccentric calf raises on bottom step (discussed but not performed) and maybe standing lunge mobilty LE up 2 steps, gait quality in mirror. (Note: Pt insurance in [place]). Pt is s/p L TKA (04/21/20) & Manipulation (06/24/20) for improving knee flex to at least 120 deg's or more. Monitor BP/HR during therapy due to occasional sympathetic response to stretching/pain. PT therapy 1-2x/week as needed (2-3 more wks). Focus therapy on L knee ROM with flex stretch with close supervision because pt tends to allow overstretch f/b sympathetic response of nausea , shaking of hands/UE's. Secondary focus is to improve hamstring strength in new achieved PROM. End Cryotherapy/Cryocuff in semi- reclined position with blanket for warmth.
[2020-07-18 15:02] VITALS: BP 105/73; BP 110/75; PULSE 74; PULSE 84
--- NOTE | 2020-07-18 15:53 | PT.OTN ---
Current Diagnoses Unilateral primary osteoarthritis, left knee (07/18/20) Effusion, right knee (07/18/20) Pain in right knee (07/18/20) Muscle weakness (generalized) (07/18/20) Other abnormalities of gait and mobility (07/18/20) Physical Therapy Treatment Note PT-OP-A Visit Information Start: 04/23/20 17:37 Freq: Status: Active Protocol: Document 07/18/20 15:02 LRN (Rec: 07/18/20 15:01 LRN [id number]) Out-Patient Physical Therapy Visit Information Visit Information Visit Type Treatment Note Visit Start Time 15:02 Visit Stop Time 16:52 Total Visit Minutes 50 Visit Number 31 Evaluation Information Evaluation Date 04/29/20 Precautions Precautions Arthritis, Back & Neck pain since surgery. PT-OP-B Current Condition Start: 04/23/20 17:37 Freq: Status: Active Protocol: Document 06/24/20 13:41 LRN (Rec: 06/24/20 14:25 LRN [id number]) Current Condition History of Current Condition Onset Date 06/21/20 Current Complaints L knee limited ROM. History of Current Condition Pt is a 75 yo female who underwent a L TKA on 04/21/20 and is now returning after a L knee manipulation on 06/21/20. Pt has sensation in the L LE with no complaints of pain with pressure at the knee. Pt has sensation to touch, hot/ cold, pressure (decreased). Prior Treatments and Tests L TKA rehab 04/29/20 - 06/21/20. Developmental History Developmental History R Anterior cruciate and MCL surgery after ski fall (1976) followed by surgery to repair and was in a full leg cast for 6 weeks. Pt reports arthritis set and has had injections in the R knee since . Treatment Goals Patient/Caregiver Goals At minimal 120 deg's L knee active flexion. Prior Functional Status Baseline Function- ADL's Modified Independent Baseline Function- Mobility Independent Baseline Function- Gait Antalgic Gait, stiffness of R knee Baseline Function- Other In surgery: 140 deg's L knee flexion. Current Functional Impairments (Reported) Functional Limitations- ADL's Tired, from AM L knee manipulation. Functional Limitations- Mobility/Gait Ambs with an antalgic gait. Functional Limitations- Other L knee AROM: Sittin deg's. Supine active: 110 deg's; passive: 120 deg's. Personal Factors Other Personal Factors That May Effect Lives alone. Therapy/Recovery PT-OP-C Subjective Start: 04/23/20 17:37 Freq: Status: Active Protocol: Document 07/18/20 15:02 LRN (Rec: 07/18/20 15:01 LRN [id number]) OP-PT Subjective Patient Comments Patient Comments Pt states she has been doing her HEP. States it was helpful to go through her home self care program last session. States she would like to do prone stretching. PT-OP-G Mobility & Gait Start: 04/23/20 17:37 Freq: Status: Active Protocol: Document 07/02/20 10:34 LRN (Rec: 07/02/20 11:58 LRN [id number]) OP Gait Assessment Comments Gait Comments Pt holds L knee moderately stiff with gait. PT-OP-H Neuro Start: 04/23/20 17:37 Freq: Status: Active Protocol: Document 07/16/20 12:47 LRN (Rec: 07/16/20 13:34 LRN [id number]) Vital Signs Pulse Resting Pulse at Rest (bpm) 83 Immediately upon sitting from supine Pulse at Rest (bpm) 65 Pulse Assessment Method Pulse Ox/Monitor Blood Pressure Resting Blood Pressure (90/60-120/80 mmHg) 100/75 Blood Pressure Source Manual Cuff,Left Upper Extremity Immediately upon sitting from supine Blood Pressure (90/60-120/80 mmHg) 122/82 H Blood Pressure Source Automatic Cuff,Left Upper Extremity PT-OP-J Posture/Palpation/Skin Start: 04/23/20 17:37 Freq: Status: Active Protocol: Document 04/29/20 12:47 LRN (Rec: 04/29/20 14:04 LRN [id number]) Palpation Assessment Location L knee Palpation Location Around L knee joint Palpation Findings Edema,Soft Tissue Tightness, Tenderness Palpation Details Increased temperature PT-OP-K Range of Motion Start: 04/23/20 17:37 Freq: Status: Active Protocol: Document 07/16/20 12:47 LRN (Rec: 07/16/20 13:34 LRN [id number]) Knee Goniometric Range of Motion Knee Supine R knee AROM Knee ROM WFL Yes Patient Position Supine Flexion Active (degrees) 128 Flexion Passive (degrees) 130 Supine L knee AROM Knee ROM WFL No Patient Position Supine Flexion Active (degrees) 120 Flexion Passive (degrees) 128 Extension Active (degrees) 0 Comments pre activity 120 deg AROM supine, post activity 128 deg PT-OP-M Strength Start: 04/23/20 17:37 Freq: Status: Active Protocol: Document 06/24/20 13:41 LRN (Rec: 06/24/20 17:29 LRN [id number]) Knee Strength Knee Manual Muscle Testing Right Flexion (S2) 5 Normal Extension (L3) 5 Normal Left Flexion (S2) 4+ Good+ Extension (L3) 4+ Good+ PT-OP-Q Treatments Start: 04/23/20 17:37 Freq: Status: Active Protocol: Document 07/18/20 15:02 LRN (Rec: 07/18/20 15:06 LRN [id number]) Therapeutic Exercises Supine Exercises knee flexion Supine Exercise Name concentric/ eccentric- added to HEP Side left Resistance manual Comments manual resist with phys cuing, towel roll under knee Heel Slides Supine Exercise Name Repetitive passive knee flex, & Ecc/Conc strengthening Side left Equipment Used Strap & TBall Reps/Minutes 10' Comments 120 deg AROM slide on table, passive 128 deg Prone Exercises Knee flex strengthening Prone Exercise Name Ecc/Conc knee flex Resistance Lev 2 TB Equipment Used Rolled small hand towel at bend of knee, rolled towel underdistal thigh Reps/Minutes 5' Knee flex Prone Exercise Name Passive knee flex w/MFR to Quads Resistance AAROM Equipment Used towel roll behind knee Reps/Minutes 5 min Sitting Exercises Active knee flexion Sitting Exercise Name Knee flex Side left Equipment Used Lev 2 Reps/Minutes 10x 3 Standing Exercises Heel raises off step Standing Exercise Name Heel raises off step and off ground Reps/Minutes 10x Comments Strain doing off step; therefore the last 2 sets from ground. Manual Therapy Treatment Soft Tissue Mobilization L knee scar Body Location Inferomedial to distal scar and anterior @ knee Mobilization Type Myofascial Release Intensity/Depth Moderate Body Position Hooklying Comments Caudal direction of release PT-OP-R Modalities Start: 04/23/20 17:37 Freq: Status: Active Protocol: Document 07/18/20 15:02 LRN (Rec: 07/18/20 15:01 LRN [id number]) Hot Pack/Cold Pack Treatment Cold Pack Location L knee cryocuff Patient Position Hooklying Treatment Duration (minutes) 10 Patient Tolerance Good Comments No blankets needed today. 2 pillows under head no symptoms, BP not assessed. PT-OP-T Assessment and Plan Start: 04/23/20 17:37 Freq: Status: Active Protocol: Document 07/18/20 15:02 LRN (Rec: 07/18/20 15:01 LRN [id number]) Physical Therapy Assessment Goals Four Impairment Decreased L knee AROM (10-52 deg's) Short Term Goal (STG) Increase L knee AROM 0-120 deg 's. (AROM before surgery: 5- 100 deg's). (07/11/20: 0-125 deg AROM, 128 deg PROM) STG Duration 06/21/20 (06/25/20: MET GOAL) Fdc Goal (LTG) Increase L knee AROM 0-125 deg 's. (07/11/20: Progressing consistancy: L knee AROM is 125 deg, post activity 123 deg 's). LTG Duration 06/28/20 (07/18/20: First time 125 deg's to start) Three Impairment Pt unable to return to her prior pool exercise program, independently Short Term Goal (STG) Pt scar will be healed with good scar mobility and L knee AROM at least 5-95 deg's (06/25/20: Good scar mobility. L knee AROM in sitting is 4- 110 deg's; 07/09/20: manual and self STMs scar 0-126 deg AROM) STG Duration 06/28/20 (05/31/20: MET GOAL) Production Inspector Goal (LTG) Pt able to get into the local pool and do her prior ex program with modifications as needed. LTG Duration 08/16/20 Two Impairment Antalgic gait using a FWW for safety Short Term Goal (STG) Pt will be able to walk with a normal gait pattern without a walker. (06/27/20: Very slight antalgic gait noted) STG Duration 07/05/20 (06/27/20: MET GOAL) Fdc Goal (LTG) Pt will be able to walk a long distance of 6 blks or 2-3 miles with mild to no difficulty. LTG Duration 08/16/20 One Impairment Lacks appropriate self care HEP Production Inspector Goal (LTG) Pt will be independent in a self care HEP for continued L knee/hip exercises. HEP TO DATE: INSTRUCTIONS GIVEN: *Do's/Don 'ts of lymph massage, *Quad/ Iliopsas stretch. *LE self lymph massage. AROM: *Bilateral BKFO, * Sitting knee ext, *Supine Ankle pumps, and *written I/S for knee flex stretch f/b 10 active stretches. STANDING: * Heel raises. RECOMMENDED POOL EXERCISES: * Knee flexion exercises. LTG Duration 08/16/20 (07/18/20: Progressing) Progress Towards Goals Progress Comments Improved L knee AROM to start at 125 deg's with ending stretch at 128 deg's. L knee active ext is 0 deg's. Assessment Summary Assessment Pt L knee mobility is good to start at 125 deg's active flexion; therefore now able to progress strengthening of L knee. Physical Therapy Plan Frequency and Duration Frequency of Treatment 2x/Week Plan of Care Start Date 06/24/20 Plan of Care End Date 08/16/20 Next Visit Focus/Plan Next Note Type Treatment Note Next Visit Plan Decr to 1x/week next week if pt able to maintain 120-125 deg's AROM to start, then see for 1-2 more weeks at 1x/week before DC. Emphasis on pt on ROM flex L knee ex's. Incorporate eccentric stair mgt, eccentric calf raises on bottom step (discussed but not performed) and maybe standing lunge mobilty LE up 2 steps, gait quality in mirror. (Note: Pt insurance in [place]). Pt is s/p L TKA (04/21/20) & Manipulation (06/24/20) for improving knee flex to at least 120 deg's or more. Monitor BP/HR during therapy due to occasional sympathetic response to stretching/pain. PT therapy 1-2x/week as needed (2-3 more wks). Focus therapy on L knee ROM with flex stretch with close supervision because pt tends to allow overstretch f/b sympathetic response of nausea , shaking of hands/UE's. Secondary focus is to improve hamstring strength in new achieved PROM. End Cryotherapy/Cryocuff in semi- reclined position with blanket for warmth.
--- NOTE | 2020-07-18 15:56 | PT.OTN ---
Current Diagnoses Unilateral primary osteoarthritis, left knee (07/18/20) Effusion, right knee (07/18/20) Pain in right knee (07/18/20) Muscle weakness (generalized) (07/18/20) Other abnormalities of gait and mobility (07/18/20) Physical Therapy Treatment Note PT-OP-A Visit Information Start: 04/23/20 17:37 Freq: Status: Active Protocol: Document 07/18/20 15:02 LRN (Rec: 07/18/20 15:01 LRN [id number]) Out-Patient Physical Therapy Visit Information Visit Information Visit Type Treatment Note Visit Start Time 15:02 Visit Stop Time 16:52 Total Visit Minutes 50 Visit Number 31 Evaluation Information Evaluation Date 04/29/20 Precautions Precautions Arthritis, Back & Neck pain since surgery. PT-OP-B Current Condition Start: 04/23/20 17:37 Freq: Status: Active Protocol: Document 06/24/20 13:41 LRN (Rec: 06/24/20 14:25 LRN [id number]) Current Condition History of Current Condition Onset Date 06/21/20 Current Complaints L knee limited ROM. History of Current Condition Pt is a 75 yo female who underwent a L TKA on 04/21/20 and is now returning after a L knee manipulation on 06/21/20. Pt has sensation in the L LE with no complaints of pain with pressure at the knee. Pt has sensation to touch, hot/ cold, pressure (decreased). Prior Treatments and Tests L TKA rehab 04/29/20 - 06/21/20. Developmental History Developmental History R Anterior cruciate and MCL surgery after ski fall (1976) followed by surgery to repair and was in a full leg cast for 6 weeks. Pt reports arthritis set and has had injections in the R knee since . Treatment Goals Patient/Caregiver Goals At minimal 120 deg's L knee active flexion. Prior Functional Status Baseline Function- ADL's Modified Independent Baseline Function- Mobility Independent Baseline Function- Gait Antalgic Gait, stiffness of R knee Baseline Function- Other In surgery: 140 deg's L knee flexion. Current Functional Impairments (Reported) Functional Limitations- ADL's Tired, from AM L knee manipulation. Functional Limitations- Mobility/Gait Ambs with an antalgic gait. Functional Limitations- Other L knee AROM: Sittin deg's. Supine active: 110 deg's; passive: 120 deg's. Personal Factors Other Personal Factors That May Effect Lives alone. Therapy/Recovery PT-OP-C Subjective Start: 04/23/20 17:37 Freq: Status: Active Protocol: Document 07/18/20 15:02 LRN (Rec: 07/18/20 15:01 LRN [id number]) OP-PT Subjective Patient Comments Patient Comments Pt states she has been doing her HEP. States it was helpful to go through her home self care program last session. States she would like to do prone stretching. PT-OP-G Mobility & Gait Start: 04/23/20 17:37 Freq: Status: Active Protocol: Document 07/02/20 10:34 LRN (Rec: 07/02/20 11:58 LRN [id number]) OP Gait Assessment Comments Gait Comments Pt holds L knee moderately stiff with gait. PT-OP-H Neuro Start: 04/23/20 17:37 Freq: Status: Active Protocol: Document 07/18/20 15:02 LRN (Rec: 07/18/20 15:55 LRN [id number]) Vital Signs Pulse Resting Pulse at Rest (bpm) 84 Pulse Assessment Method Pulse Ox/Monitor Immediately upon sitting from supine Pulse at Rest (bpm) 74 Pulse Assessment Method Pulse Ox/Monitor Blood Pressure Resting Blood Pressure (90/60-120/80 mmHg) 105/73 Blood Pressure Source Automatic Cuff,Left Upper Extremity Immediately upon sitting from supine Blood Pressure (90/60-120/80 mmHg) 110/75 Blood Pressure Source Automatic Cuff,Left Upper Extremity PT-OP-J Posture/Palpation/Skin Start: 04/23/20 17:37 Freq: Status: Active Protocol: Document 04/29/20 12:47 LRN (Rec: 04/29/20 14:04 LRN [id number]) Palpation Assessment Location L knee Palpation Location Around L knee joint Palpation Findings Edema,Soft Tissue Tightness, Tenderness Palpation Details Increased temperature PT-OP-K Range of Motion Start: 04/23/20 17:37 Freq: Status: Active Protocol: Document 07/18/20 15:02 LRN (Rec: 07/18/20 15:55 LRN [id number]) Knee Goniometric Range of Motion Knee Supine L knee AROM Patient Position Supine Flexion Active (degrees) 125 Flexion Passive (degrees) 128 Extension Active (degrees) 0 PT-OP-M Strength Start: 04/23/20 17:37 Freq: Status: Active Protocol: Document 06/24/20 13:41 LRN (Rec: 06/24/20 17:29 LRN [id number]) Knee Strength Knee Manual Muscle Testing Right Flexion (S2) 5 Normal Extension (L3) 5 Normal Left Flexion (S2) 4+ Good+ Extension (L3) 4+ Good+ PT-OP-Q Treatments Start: 04/23/20 17:37 Freq: Status: Active Protocol: Document 07/18/20 15:02 LRN (Rec: 07/18/20 15:06 LRN [id number]) Therapeutic Exercises Supine Exercises knee flexion Supine Exercise Name concentric/ eccentric- added to HEP Side left Resistance manual Comments manual resist with phys cuing, towel roll under knee Heel Slides Supine Exercise Name Repetitive passive knee flex, & Ecc/Conc strengthening Side left Equipment Used Strap & TBall Reps/Minutes 10' Comments 120 deg AROM slide on table, passive 128 deg Prone Exercises Knee flex strengthening Prone Exercise Name Ecc/Conc knee flex Resistance Lev 2 TB Equipment Used Rolled small hand towel at bend of knee, rolled towel underdistal thigh Reps/Minutes 5' Knee flex Prone Exercise Name Passive knee flex w/MFR to Quads Resistance AAROM Equipment Used towel roll behind knee Reps/Minutes 5 min Sitting Exercises Active knee flexion Sitting Exercise Name Knee flex Side left Equipment Used Lev 2 Reps/Minutes 10x 3 Standing Exercises Heel raises off step Standing Exercise Name Heel raises off step and off ground Reps/Minutes 10x Comments Strain doing off step; therefore the last 2 sets from ground. Manual Therapy Treatment Soft Tissue Mobilization L knee scar Body Location Inferomedial to distal scar and anterior @ knee Mobilization Type Myofascial Release Intensity/Depth Moderate Body Position Hooklying Comments Caudal direction of release PT-OP-R Modalities Start: 04/23/20 17:37 Freq: Status: Active Protocol: Document 07/18/20 15:02 LRN (Rec: 07/18/20 15:01 LRN [id number]) Hot Pack/Cold Pack Treatment Cold Pack Location L knee cryocuff Patient Position Hooklying Treatment Duration (minutes) 10 Patient Tolerance Good Comments No blankets needed today. 2 pillows under head no symptoms, BP not assessed. PT-OP-T Assessment and Plan Start: 04/23/20 17:37 Freq: Status: Active Protocol: Document 07/18/20 15:02 LRN (Rec: 07/18/20 15:01 LRN [id number]) Physical Therapy Assessment Goals Four Impairment Decreased L knee AROM (10-52 deg's) Short Term Goal (STG) Increase L knee AROM 0-120 deg 's. (AROM before surgery: 5- 100 deg's). (07/11/20: 0-125 deg AROM, 128 deg PROM) STG Duration 06/21/20 (06/25/20: MET GOAL) Fdc Goal (LTG) Increase L knee AROM 0-125 deg 's. (07/11/20: Progressing consistancy: L knee AROM is 125 deg, post activity 123 deg 's). LTG Duration 06/28/20 (07/18/20: First time 125 deg's to start) Three Impairment Pt unable to return to her prior pool exercise program, independently Short Term Goal (STG) Pt scar will be healed with good scar mobility and L knee AROM at least 5-95 deg's (06/25/20: Good scar mobility. L knee AROM in sitting is 4- 110 deg's; 07/09/20: manual and self STMs scar 0-126 deg AROM) STG Duration 06/28/20 (05/31/20: MET GOAL) Fdc Goal (LTG) Pt able to get into the local pool and do her prior ex program with modifications as needed. LTG Duration 08/16/20 Two Impairment Antalgic gait using a FWW for safety Short Term Goal (STG) Pt will be able to walk with a normal gait pattern without a walker. (06/27/20: Very slight antalgic gait noted) STG Duration 07/05/20 (06/27/20: MET GOAL) Die Setter Goal (LTG) Pt will be able to walk a long distance of 6 blks or 2-3 miles with mild to no difficulty. LTG Duration 08/16/20 One Impairment Lacks appropriate self care HEP Fdc Goal (LTG) Pt will be independent in a self care HEP for continued L knee/hip exercises. HEP TO DATE: INSTRUCTIONS GIVEN: *Do's/Don 'ts of lymph massage, *Quad/ Iliopsas stretch. *LE self lymph massage. AROM: *Bilateral BKFO, * Sitting knee ext, *Supine Ankle pumps, and *written I/S for knee flex stretch f/b 10 active stretches. STANDING: * Heel raises. RECOMMENDED POOL EXERCISES: * Knee flexion exercises. LTG Duration 08/16/20 (07/18/20: Progressing) Progress Towards Goals Progress Comments Improved L knee AROM to start at 125 deg's with ending stretch at 128 deg's. L knee active ext is 0 deg's. Assessment Summary Assessment Pt L knee mobility is good to start at 125 deg's active flexion; therefore now able to progress strengthening of L knee. Physical Therapy Plan Frequency and Duration Frequency of Treatment 2x/Week Plan of Care Start Date 06/24/20 Plan of Care End Date 08/16/20 Next Visit Focus/Plan Next Note Type Treatment Note Next Visit Plan Decr to 1x/week next week if pt able to maintain 120-125 deg's AROM to start, then see for 1-2 more weeks at 1x/week before DC. Emphasis on pt on ROM flex L knee ex's. Incorporate eccentric stair mgt, eccentric calf raises on bottom step (discussed but not performed) and maybe standing lunge mobilty LE up 2 steps, gait quality in mirror. (Note: Pt insurance [place]). Pt is s/p L TKA (04/21/20) & Manipulation (06/24/20) for improving knee flex to at least 120 deg's or more. Monitor BP/HR during therapy due to occasional sympathetic response to stretching/pain. PT therapy 1-2x/week as needed (2-3 more wks). Focus therapy on L knee ROM with flex stretch with close supervision because pt tends to allow overstretch f/b sympathetic response of nausea , shaking of hands/UE's. Secondary focus is to improve hamstring strength in new achieved PROM. End Cryotherapy/Cryocuff in semi- reclined position with blanket for warmth.
[2020-07-22 09:47] VITALS: BP 106/71; BP 107/76; PULSE 81
--- NOTE | 2020-07-22 16:17 | PT.OTN ---
Current Diagnoses Unilateral primary osteoarthritis, left knee (07/22/20) Effusion, right knee (07/22/20) Pain in right knee (07/22/20) Muscle weakness (generalized) (07/22/20) Other abnormalities of gait and mobility (07/22/20) Physical Therapy Treatment Note PT-OP-A Visit Information Start: 04/23/20 17:37 Freq: Status: Active Protocol: Document 07/22/20 09:47 LRN (Rec: 07/22/20 10:31 LRN [id number]) Out-Patient Physical Therapy Visit Information Visit Information Visit Type Treatment Note Visit Start Time 09:47 Visit Stop Time 10:30 Total Visit Minutes 43 Visit Number 32 Evaluation Information Evaluation Date 04/29/20 Precautions Precautions Arthritis, Back & Neck pain since surgery. PT-OP-B Current Condition Start: 04/23/20 17:37 Freq: Status: Active Protocol: Document 06/24/20 13:41 LRN (Rec: 06/24/20 14:25 LRN [id number]) Current Condition History of Current Condition Onset Date 06/21/20 Current Complaints L knee limited ROM. History of Current Condition Pt is a 75 yo female who underwent a L TKA on 04/21/20 and is now returning after a L knee manipulation on 06/21/20. Pt has sensation in the L LE with no complaints of pain with pressure at the knee. Pt has sensation to touch, hot/ cold, pressure (decreased). Prior Treatments and Tests L TKA rehab 04/29/20 - 06/21/20. Developmental History Developmental History R Anterior cruciate and MCL surgery after ski fall (1976) followed by surgery to repair and was in a full leg cast for 6 weeks. Pt reports arthritis set and has had injections in the R knee since . Treatment Goals Patient/Caregiver Goals At minimal 120 deg's L knee active flexion. Prior Functional Status Baseline Function- ADL's Modified Independent Baseline Function- Mobility Independent Baseline Function- Gait Antalgic Gait, stiffness of R knee Baseline Function- Other In surgery: 140 deg's L knee flexion. Current Functional Impairments (Reported) Functional Limitations- ADL's Tired, from AM L knee manipulation. Functional Limitations- Mobility/Gait Ambs with an antalgic gait. Functional Limitations- Other L knee AROM: Sittin deg's. Supine active: 110 deg's; passive: 120 deg's. Personal Factors Other Personal Factors That May Effect Lives alone. Therapy/Recovery PT-OP-C Subjective Start: 04/23/20 17:37 Freq: Status: Active Protocol: Document 07/22/20 09:47 LRN (Rec: 07/22/20 10:31 LRN [id number]) OP-PT Subjective Patient Comments Patient Comments ......... PT-OP-G Mobility & Gait Start: 04/23/20 17:37 Freq: Status: Active Protocol: Document 07/02/20 10:34 LRN (Rec: 07/02/20 11:58 LRN [id number]) OP Gait Assessment Comments Gait Comments Pt holds L knee moderately stiff with gait. PT-OP-H Neuro Start: 04/23/20 17:37 Freq: Status: Active Protocol: Document 07/22/20 09:47 LRN (Rec: 07/22/20 10:31 LRN [id number]) Vital Signs Pulse Resting Pulse at Rest (bpm) 81 Pulse Assessment Method Pulse Ox/Monitor Blood Pressure Resting Blood Pressure (90/60-120/80 mmHg) 107/76 Blood Pressure Source Automatic Cuff,Left Upper Extremity Immediately upon sitting from supine Blood Pressure (90/60-120/80 mmHg) 106/71 Blood Pressure Source Automatic Cuff,Left Upper Extremity PT-OP-J Posture/Palpation/Skin Start: 04/23/20 17:37 Freq: Status: Active Protocol: Document 04/29/20 12:47 LRN (Rec: 04/29/20 14:04 LRN [id number]) Palpation Assessment Location L knee Palpation Location Around L knee joint Palpation Findings Edema,Soft Tissue Tightness, Tenderness Palpation Details Increased temperature PT-OP-K Range of Motion Start: 04/23/20 17:37 Freq: Status: Active Protocol: Document 07/22/20 09:47 LRN (Rec: 07/22/20 10:31 LRN [id number]) Knee Goniometric Range of Motion Knee Supine L knee AROM Patient Position Supine Flexion Active (degrees) 125 Flexion Passive (degrees) 127 Extension Active (degrees) 0 Comments Pre active 122 deg's in supine . Sitting L knee AROM Patient Position Sitting Flexion Active (degrees) 115 Sitting R knee ROM Patient Position Sitting Flexion Active (degrees) 122 PT-OP-M Strength Start: 04/23/20 17:37 Freq: Status: Active Protocol: Document 06/24/20 13:41 LRN (Rec: 06/24/20 17:29 LRN [id number]) Knee Strength Knee Manual Muscle Testing Right Flexion (S2) 5 Normal Extension (L3) 5 Normal Left Flexion (S2) 4+ Good+ Extension (L3) 4+ Good+ PT-OP-Q Treatments Start: 04/23/20 17:37 Freq: Status: Active Protocol: Document 07/22/20 09:47 LRN (Rec: 07/22/20 10:31 LRN [id number]) Therapeutic Exercises Supine Exercises knee flexion Supine Exercise Name concentric/ eccentric- added to HEP Side left Resistance manual Reps/Minutes 10' Comments manual resist with phys cuing, towel roll under knee Heel Slides Supine Exercise Name Repetitive passive knee flex, & Ecc/Conc strengthening Side left Equipment Used Strap & TBall Reps/Minutes 10' Comments 122 deg AROM slide on table, passive 130 deg Prone Exercises Hip Ext Prone Exercise Name Hip Ext Side left Equipment Used 5# Reps/Minutes 3' Knee flex strengthening Prone Exercise Name Ecc/Conc knee flex Resistance 5# Equipment Used Rolled small hand towel at bend of knee, rolled towel underdistal thigh Reps/Minutes 5' Knee flex Prone Exercise Name Passive knee flex w/MFR to Quads Resistance AAROM Equipment Used towel roll behind knee Reps/Minutes 5 min Standing Exercises Stretch knee flexion off step Standing Exercise Name Lunge off 2nd step and Quad contraction to stand Side bilateral Reps/Minutes 8' Comments Extra time to determine max stretch position of L knee. Manual Therapy Treatment Soft Tissue Mobilization L knee scar Body Location Inferomedial to distal scar and anterior @ knee Mobilization Type Myofascial Release Intensity/Depth Moderate Body Position Hooklying Comments Caudal direction of release PT-OP-R Modalities Start: 04/23/20 17:37 Freq: Status: Active Protocol: Document 07/22/20 09:47 LRN (Rec: 07/22/20 10:31 LRN [id number]) Hot Pack/Cold Pack Treatment Cold Pack Location L knee cryocuff Patient Position Hooklying Treatment Duration (minutes) 10 Patient Tolerance Good Comments No blankets needed today. 2 pillows under head no symptoms, BP not assessed. PT-OP-T Assessment and Plan Start: 04/23/20 17:37 Freq: Status: Active Protocol: Document 07/22/20 09:47 LRN (Rec: 07/22/20 10:31 LRN [id number]) Physical Therapy Assessment Goals Four Impairment Decreased L knee AROM (10-52 deg's) Short Term Goal (STG) Increase L knee AROM 0-120 deg 's. (AROM before surgery: 5- 100 deg's). (07/11/20: 0-125 deg AROM, 128 deg PROM) STG Duration 06/21/20 (06/25/20: MET GOAL) Echocardiograph Technician Goal (LTG) Increase L knee AROM 0-125 deg 's. (07/11/20: Progressing consistancy: L knee AROM is 125 deg, post activity 123 deg 's). LTG Duration 06/28/20 (07/18/20: First time 125 deg's to start) Three Impairment Pt unable to return to her prior pool exercise program, independently Short Term Goal (STG) Pt scar will be healed with good scar mobility and L knee AROM at least 5-95 deg's (06/25/20: Good scar mobility. L knee AROM in sitting is 4- 110 deg's; 07/09/20: manual and self STMs scar 0-126 deg AROM) STG Duration 06/28/20 (05/31/20: MET GOAL) Echocardiograph Technician Goal (LTG) Pt able to get into the local pool and do her prior ex program with modifications as needed. LTG Duration 08/16/20 Two Impairment Antalgic gait using a FWW for safety Short Term Goal (STG) Pt will be able to walk with a normal gait pattern without a walker. (06/27/20: Very slight antalgic gait noted) STG Duration 07/05/20 (06/27/20: MET GOAL) Echocardiograph Technician Goal (LTG) Pt will be able to walk a long distance of 6 blks or 2-3 miles with mild to no difficulty. LTG Duration 08/16/20 (07/22/20: MET GOAL) One Impairment Lacks appropriate self care HEP Echocardiograph Technician Goal (LTG) Pt will be independent in a self care HEP for continued L knee/hip exercises. HEP TO DATE: INSTRUCTIONS GIVEN: *Do's/Don 'ts of lymph massage, *Quad/ Iliopsas stretch. *LE self lymph massage. AROM: *Bilateral BKFO, * Sitting knee ext, *Supine Ankle pumps, and *written I/S for knee flex stretch f/b 10 active stretches. STANDING: * Heel raises. RECOMMENDED POOL EXERCISES: * Knee flexion exercises. LTG Duration 08/16/20 (07/18/20: Progressing) Progress Towards Goals Progress Comments Improved L knee AROM flexion: starting 122 deg's, ending stretch 130 deg's. Assessment Summary Assessment L knee mobility to start was 122 deg's active flexion, after stretching 130 deg's. Pt had stiffness in the anterior knee joint descending stairs. No signs of sympathetic response with therapy. Physical Therapy Plan Frequency and Duration Frequency of Treatment 2x/Week Plan of Care Start Date 06/24/20 Plan of Care End Date 08/16/20 Next Visit Focus/Plan Next Note Type Treatment Note Next Visit Plan Decr to 1x/week next week, then 1-2 more weeks at 1x/week before DC. Emphasis on pt on ROM flex L knee ex's. (Note: Pt insurance [place]). Pt is s/p L TKA (04/21/20) & Manipulation (06/24/20) for improving knee flex to at least 120 deg's or more. Monitor BP/HR during therapy due to occasional sympathetic response to stretching/pain. PT therapy 1-2x/week as needed (2-3 more wks). Focus therapy on L knee ROM with flex stretch with close supervision because pt tends to allow overstretch f/b sympathetic response of nausea , shaking of hands/UE's. Secondary focus is to improve hamstring strength in new achieved PROM. End Cryotherapy/Cryocuff in semi- reclined position with blanket for warmth.
--- NOTE | 2020-07-25 09:45 | PT.OTN ---
Current Diagnoses Unilateral primary osteoarthritis, left knee (07/25/20) Effusion, right knee (07/25/20) Pain in right knee (07/25/20) Muscle weakness (generalized) (07/25/20) Other abnormalities of gait and mobility (07/25/20) Physical Therapy Treatment Note PT-OP-A Visit Information Start: 04/23/20 17:37 Freq: Status: Active Protocol: Document 07/25/20 09:00 SP (Rec: 07/25/20 13:02 SP [id number]) Out-Patient Physical Therapy Visit Information Visit Information Visit Type Treatment Note Visit Note Pt 4 min late for appt Visit Start Time 09:04 Visit Stop Time 09:45 Total Visit Minutes 41 Visit Number 33 Evaluation Information Evaluation Date 04/29/20 Precautions Precautions Arthritis, Back & Neck pain since surgery. PT-OP-B Current Condition Start: 04/23/20 17:37 Freq: Status: Active Protocol: Document 06/24/20 13:41 LRN (Rec: 06/24/20 14:25 LRN [id number]) Current Condition History of Current Condition Onset Date 06/21/20 Current Complaints L knee limited ROM. History of Current Condition Pt is a 75 yo female who underwent a L TKA on 04/21/20 and is now returning after a L knee manipulation on 06/21/20. Pt has sensation in the L LE with no complaints of pain with pressure at the knee. Pt has sensation to touch, hot/ cold, pressure (decreased). Prior Treatments and Tests L TKA rehab 04/29/20 - 06/21/20. Developmental History Developmental History R Anterior cruciate and MCL surgery after ski fall (1976) followed by surgery to repair and was in a full leg cast for 6 weeks. Pt reports arthritis set and has had injections in the R knee since . Treatment Goals Patient/Caregiver Goals At minimal 120 deg's L knee active flexion. Prior Functional Status Baseline Function- ADL's Modified Independent Baseline Function- Mobility Independent Baseline Function- Gait Antalgic Gait, stiffness of R knee Baseline Function- Other In surgery: 140 deg's L knee flexion. Current Functional Impairments (Reported) Functional Limitations- ADL's Tired, from AM L knee manipulation. Functional Limitations- Mobility/Gait Ambs with an antalgic gait. Functional Limitations- Other L knee AROM: Sittin deg's. Supine active: 110 deg's; passive: 120 deg's. Personal Factors Other Personal Factors That May Effect Lives alone. Therapy/Recovery PT-OP-C Subjective Start: 04/23/20 17:37 Freq: Status: Active Protocol: Document 07/25/20 09:00 SP (Rec: 07/25/20 13:02 SP [id number]) OP-PT Subjective Patient Comments Patient Comments Pt stated woke up last night in achy pain, first has happened in a long time. PT-OP-G Mobility & Gait Start: 04/23/20 17:37 Freq: Status: Active Protocol: Document 07/02/20 10:34 LRN (Rec: 07/02/20 11:58 LRN [id number]) OP Gait Assessment Comments Gait Comments Pt holds L knee moderately stiff with gait. PT-OP-H Neuro Start: 04/23/20 17:37 Freq: Status: Active Protocol: Document 07/22/20 09:47 LRN (Rec: 07/22/20 10:31 LRN [id number]) Vital Signs Pulse Resting Pulse at Rest (bpm) 81 Pulse Assessment Method Pulse Ox/Monitor Blood Pressure Resting Blood Pressure (90/60-120/80 mmHg) 107/76 Blood Pressure Source Automatic Cuff,Left Upper Extremity Immediately upon sitting from supine Blood Pressure (90/60-120/80 mmHg) 106/71 Blood Pressure Source Automatic Cuff,Left Upper Extremity PT-OP-J Posture/Palpation/Skin Start: 04/23/20 17:37 Freq: Status: Active Protocol: Document 04/29/20 12:47 LRN (Rec: 04/29/20 14:04 LRN [id number]) Palpation Assessment Location L knee Palpation Location Around L knee joint Palpation Findings Edema,Soft Tissue Tightness, Tenderness Palpation Details Increased temperature PT-OP-K Range of Motion Start: 04/23/20 17:37 Freq: Status: Active Protocol: Document 07/22/20 09:47 LRN (Rec: 07/22/20 10:31 LRN [id number]) Knee Goniometric Range of Motion Knee Supine L knee AROM Patient Position Supine Flexion Active (degrees) 125 Flexion Passive (degrees) 127 Extension Active (degrees) 0 Comments Pre active 122 deg's in supine . Sitting L knee AROM Patient Position Sitting Flexion Active (degrees) 115 Sitting R knee ROM Patient Position Sitting Flexion Active (degrees) 122 PT-OP-M Strength Start: 04/23/20 17:37 Freq: Status: Active Protocol: Document 06/24/20 13:41 LRN (Rec: 06/24/20 17:29 LRN [id number]) Knee Strength Knee Manual Muscle Testing Right Flexion (S2) 5 Normal Extension (L3) 5 Normal Left Flexion (S2) 4+ Good+ Extension (L3) 4+ Good+ PT-OP-Q Treatments Start: 04/23/20 17:37 Freq: Status: Active Protocol: Document 07/25/20 09:00 SP (Rec: 07/25/20 13:02 SP [id number]) Therapeutic Exercises Supine Exercises knee flexion Supine Exercise Name AAROM- PROM reviewed HEP Side left Resistance manual Reps/Minutes 10' Comments manual resist with phys cuing, towel roll under knee Heel Slides Supine Exercise Name Repetitive passive knee flex, & Ecc/Conc strengthening Side left Equipment Used Strap & TBall, Tb #2 Reps/Minutes 10' Comments ROM: 128 deg AROM slide on table, passive 124 deg Prone Exercises Knee flex Prone Exercise Name Passive knee flex w/MFR to Quads Resistance AAROM Equipment Used 55cm tball Reps/Minutes 5 min Comments 128 deg> 130 deg Sitting Exercises Passive knee flex Sitting Exercise Name assist flexion & alignment Side left Resistance AAROM & PROM flexion Equipment Used 65cm tball Reps/Minutes 4' Comments 130 deg Standing Exercises step down Standing Exercise Name eccentric step down (cued wt into ankle/posterior chain) Side left Resistance AROM Equipment Used 4 step, contact rail Reps/Minutes 2x10 Comments discomfort anterior L knee initially, just little tension after cues Heel raises off step Standing Exercise Name discussed but not performed Equipment Used 4 step Reps/Minutes 10x Comments felt fine last tx Manual Therapy Treatment Soft Tissue Mobilization L knee scar Body Location Inferomedial to distal scar and anterior @ knee Mobilization Type Myofascial Release Intensity/Depth Moderate Body Position Sitting Comments Caudal direction of release Neuro Re-Education Treatment Balance Activities balance beam Equipment 2 beams Reps/Duration x3 laps Comments CGA, stable then added obstacle course Equipment hurdles, foam cushions, pods Comments uneven surface balance to assiimulate walking on AFL PT-OP-R Modalities Start: 04/23/20 17:37 Freq: Status: Active Protocol: Document 07/22/20 09:47 LRN (Rec: 07/22/20 10:31 LRN [id number]) Hot Pack/Cold Pack Treatment Cold Pack Location L knee cryocuff Patient Position Hooklying Treatment Duration (minutes) 10 Patient Tolerance Good Comments No blankets needed today. 2 pillows under head no symptoms, BP not assessed. PT-OP-T Assessment and Plan Start: 04/23/20 17:37 Freq: Status: Active Protocol: Document 07/25/20 09:00 SP (Rec: 07/25/20 13:02 SP [id number]) Physical Therapy Assessment Goals Four Impairment Decreased L knee AROM (10-52 deg's) Short Term Goal (STG) Increase L knee AROM 0-120 deg 's. (AROM before surgery: 5- 100 deg's). (07/11/20: 0-125 deg AROM, 128 deg PROM) STG Duration 06/21/20 (06/25/20: MET GOAL) Placement Assistant Goal (LTG) Increase L knee AROM 0-125 deg 's. (07/11/20: Progressing consistancy: L knee AROM is 125 deg, post activity 123 deg 's). LTG Duration 06/28/20 (07/18/20: First time 125 deg's to start) Three Impairment Pt unable to return to her prior pool exercise program, independently Short Term Goal (STG) Pt scar will be healed with good scar mobility and L knee AROM at least 5-95 deg's (06/25/20: Good scar mobility. L knee AROM in sitting is 4- 110 deg's; 07/09/20: manual and self STMs scar 0-126 deg AROM) STG Duration 06/28/20 (05/31/20: MET GOAL) Snf Goal (LTG) Pt able to get into the local pool and do her prior ex program with modifications as needed. LTG Duration 08/16/20 Two Impairment Antalgic gait using a FWW for safety Short Term Goal (STG) Pt will be able to walk with a normal gait pattern without a walker. (06/27/20: Very slight antalgic gait noted) STG Duration 07/05/20 (06/27/20: MET GOAL) Snf Goal (LTG) Pt will be able to walk a long distance of 6 blks or 2-3 miles with mild to no difficulty. LTG Duration 08/16/20 (07/22/20: MET GOAL) One Impairment Lacks appropriate self care HEP Snf Goal (LTG) Pt will be independent in a self care HEP for continued L knee/hip exercises. HEP TO DATE: INSTRUCTIONS GIVEN: *Do's/Don 'ts of lymph massage, *Quad/ Iliopsas stretch. *LE self lymph massage. AROM: *Bilateral BKFO, * Sitting knee ext, *Supine Ankle pumps, and *written I/S for knee flex stretch f/b 10 active stretches. STANDING: * Heel raises. RECOMMENDED POOL EXERCISES: * Knee flexion exercises. LTG Duration 08/16/20 (07/18/20: Progressing) Assessment Summary Assessment Pt starts off with 128 deg AROM L knee supine contact foot keep sock from sliding, after stretching 130 deg. Pt had stiffness in the anterior knee joint descending stairs, improved with COG over ankle and posterior chain emphasis w /improved ankle mobility. No signs of sympathetic response with therapy and declined modalities today I don't think I need it. Initiated uneven balance activities to assimulate gait over uneven ground, pt goal to get back to hiking AFL with good response CG- Qing. Physical Therapy Plan Frequency and Duration Frequency of Treatment 2x/Week Plan of Care Start Date 06/24/20 Plan of Care End Date 08/16/20 Therapeutic Interventions Therapeutic Interventions Gait Training,Home Exercise Program,Joint Mobilizations, Manual Therapy,Patient/ Caregiver Education,Self-Care/ Home Management,Soft Tissue Mobilization,Therapeutic Exercises Modalities Cold Pack/Ice Massage Next Visit Focus/Plan Next Note Type Treatment Note Next Visit Plan Assess response to manual, ROM , eccentrick strengthening/ ROM, balance. 1-2 more weeks at 1x/week before DC. Emphasis on pt on ROM flex L knee ex's. (Note: Pt insurance [place]). Pt is s/p L TKA (04/21/20) & Manipulation (06/24/20) for improving knee flex to at least 120 deg's or more. Monitor BP/HR during therapy due to occasional sympathetic response to stretching/pain. Focus therapy on L knee ROM with flex stretch with close supervision because pt tends to allow overstretch f/b sympathetic response of nausea , shaking of hands/UE's. Secondary focus is to improve hamstring strength in new achieved PROM. End Cryotherapy/Cryocuff in semi- reclined position with blanket for warmth.
--- NOTE | 2020-08-01 12:23 | PT.OTN ---
Current Diagnoses Unilateral primary osteoarthritis, left knee (08/01/20) Effusion, right knee (08/01/20) Pain in right knee (08/01/20) Muscle weakness (generalized) (08/01/20) Other abnormalities of gait and mobility (08/01/20) Physical Therapy Treatment Note PT-OP-A Visit Information Start: 04/23/20 17:37 Freq: Status: Active Protocol: Document 08/01/20 11:20 LRN (Rec: 08/01/20 11:09 LRN [id number]) Out-Patient Physical Therapy Visit Information Visit Information Visit Type Treatment Note Visit Start Time 11:20 Visit Stop Time 12:04 Total Visit Minutes 44 Visit Number 34 Evaluation Information Evaluation Date 04/29/20 Precautions Precautions Arthritis, Back & Neck pain since surgery. PT-OP-B Current Condition Start: 04/23/20 17:37 Freq: Status: Active Protocol: Document 06/24/20 13:41 LRN (Rec: 06/24/20 14:25 LRN [id number]) Current Condition History of Current Condition Onset Date 06/21/20 Current Complaints L knee limited ROM. History of Current Condition Pt is a 75 yo female who underwent a L TKA on 04/21/20 and is now returning after a L knee manipulation on 06/21/20. Pt has sensation in the L LE with no complaints of pain with pressure at the knee. Pt has sensation to touch, hot/ cold, pressure (decreased). Prior Treatments and Tests L TKA rehab 04/29/20 - 06/21/20. Developmental History Developmental History R Anterior cruciate and MCL surgery after ski fall (1976) followed by surgery to repair and was in a full leg cast for 6 weeks. Pt reports arthritis set and has had injections in the R knee since . Treatment Goals Patient/Caregiver Goals At minimal 120 deg's L knee active flexion. Prior Functional Status Baseline Function- ADL's Modified Independent Baseline Function- Mobility Independent Baseline Function- Gait Antalgic Gait, stiffness of R knee Baseline Function- Other In surgery: 140 deg's L knee flexion. Current Functional Impairments (Reported) Functional Limitations- ADL's Tired, from AM L knee manipulation. Functional Limitations- Mobility/Gait Ambs with an antalgic gait. Functional Limitations- Other L knee AROM: Sittin deg's. Supine active: 110 deg's; passive: 120 deg's. Personal Factors Other Personal Factors That May Effect Lives alone. Therapy/Recovery PT-OP-C Subjective Start: 04/23/20 17:37 Freq: Status: Active Protocol: Document 08/01/20 11:20 LRN (Rec: 08/01/20 11:09 LRN [id number]) OP-PT Subjective Patient Comments Patient Comments States she started aerobics in the water for 2x this week. States the final visit with referring physician is Tues next week. Choosing to ice L knee at home. PT-OP-G Mobility & Gait Start: 04/23/20 17:37 Freq: Status: Active Protocol: Document 07/02/20 10:34 LRN (Rec: 07/02/20 11:58 LRN [id number]) OP Gait Assessment Comments Gait Comments Pt holds L knee moderately stiff with gait. PT-OP-H Neuro Start: 04/23/20 17:37 Freq: Status: Active Protocol: Document 07/22/20 09:47 LRN (Rec: 07/22/20 10:31 LRN [id number]) Vital Signs Pulse Resting Pulse at Rest (bpm) 81 Pulse Assessment Method Pulse Ox/Monitor Blood Pressure Resting Blood Pressure (90/60-120/80 mmHg) 107/76 Blood Pressure Source Automatic Cuff,Left Upper Extremity Immediately upon sitting from supine Blood Pressure (90/60-120/80 mmHg) 106/71 Blood Pressure Source Automatic Cuff,Left Upper Extremity PT-OP-J Posture/Palpation/Skin Start: 04/23/20 17:37 Freq: Status: Active Protocol: Document 04/29/20 12:47 LRN (Rec: 04/29/20 14:04 LRN [id number]) Palpation Assessment Location L knee Palpation Location Around L knee joint Palpation Findings Edema,Soft Tissue Tightness, Tenderness Palpation Details Increased temperature PT-OP-K Range of Motion Start: 04/23/20 17:37 Freq: Status: Active Protocol: Document 08/01/20 11:20 LRN (Rec: 08/01/20 11:26 LRN [id number]) Knee Goniometric Range of Motion Knee Supine R knee AROM Knee ROM WFL Yes Patient Position Supine Flexion Active (degrees) 128 Flexion Passive (degrees) 130 Supine L knee AROM Knee ROM WFL No Patient Position Supine Flexion Active (degrees) 127 Flexion Passive (degrees) 130 Sitting L knee AROM Knee ROM WFL No Patient Position Sitting Flexion Active (degrees) 120 Sitting R knee ROM Patient Position Sitting Flexion Active (degrees) 122 PT-OP-M Strength Start: 04/23/20 17:37 Freq: Status: Active Protocol: Document 06/24/20 13:41 LRN (Rec: 06/24/20 17:29 LRN [id number]) Knee Strength Knee Manual Muscle Testing Right Flexion (S2) 5 Normal Extension (L3) 5 Normal Left Flexion (S2) 4+ Good+ Extension (L3) 4+ Good+ PT-OP-Q Treatments Start: 04/23/20 17:37 Freq: Status: Active Protocol: Document 08/01/20 11:20 LRN (Rec: 08/01/20 11:26 LRN [id number]) Therapeutic Exercises Supine Exercises knee flexion Supine Exercise Name PROM reviewed HEP Side left Resistance manual Reps/Minutes 5 Comments manual resist with phys cuing, towel roll under knee Heel Slides Supine Exercise Name Repetitive passive knee flex, & Ecc/Conc strengthening Side left Equipment Used Strap & TBall, Tb #2 Reps/Minutes 10' Comments ROM: 128 deg AROM slide on table, passive 124 deg Sitting Exercises Ankle IV/EV strengthening Sitting Exercise Name Ankle IV/EV strengthening (2 ways for IV) Side left Equipment Used Lev 2 TB Reps/Minutes 6' Active knee flexion Sitting Exercise Name Active knee AROM Side left Reps/Minutes 5' Manual Therapy Treatment Soft Tissue Mobilization L knee scar Body Location Inferomedial to distal scar and anterior @ knee Mobilization Type Myofascial Release Intensity/Depth Moderate Body Position Sitting Comments Caudal direction of release Neuro Re-Education Treatment Balance Activities Tandem standing Details Tandem stance (L foot, then R foot behind) Surface Firm Reps/Duration 1' intervals x 3 with rests between Comments 8' SLS Details SLS Surface Level, firm & on Blue Foam Reps/Duration 10'' Comments In 60 secs touch assist (foot or hands): left - 3x right - 0x balance beam Details Forward & backward walking Equipment 2 beams Reps/Duration x6 laps with occasional rest Comments CGA, stable then added Self-Care/Home Management Treatment Education Patient Education Home Exercise Program Activities Self-Care/Home Management Activities Issued HEP: Standing balance: Tandem & SLS (firm and soft surface), and sidestepping; Ankle strengthening: PF/DF/EV/ IV & Lev 2 TBand issued. PT-OP-R Modalities Start: 04/23/20 17:37 Freq: Status: Active Protocol: Document 08/01/20 11:20 LRN (Rec: 08/01/20 11:09 LRN [id number]) Hot Pack/Cold Pack Treatment Cold Pack Location L knee cryocuff Patient Position Hooklying Treatment Duration (minutes) 10 Patient Tolerance Good Comments No blankets needed today. 2 pillows under head no symptoms, BP not assessed. PT-OP-T Assessment and Plan Start: 04/23/20 17:37 Freq: Status: Active Protocol: Document 08/01/20 11:20 LRN (Rec: 08/01/20 11:09 LRN [id number]) Physical Therapy Assessment Goals Four Impairment Decreased L knee AROM (10-52 deg's) Short Term Goal (STG) Increase L knee AROM 0-120 deg 's. (AROM before surgery: 5- 100 deg's). (07/11/20: 0-125 deg AROM, 128 deg PROM) STG Duration 06/21/20 (06/25/20: MET GOAL) Booster Pump Oiler Goal (LTG) Increase L knee AROM 0-125 deg 's. (07/11/20: Progressing consistancy: L knee AROM is 127 deg, post activity PROM is 133 deg's). LTG Duration 06/28/20 (08/01/20: MET GOAL) Three Impairment Pt unable to return to her prior pool exercise program, independently Short Term Goal (STG) Pt scar will be healed with good scar mobility and L knee AROM at least 5-95 deg's (06/25/20: Good scar mobility. L knee AROM in sitting is 4- 110 deg's; 07/09/20: manual and self STMs scar 0-126 deg AROM) STG Duration 06/28/20 (05/31/20: MET GOAL) Booster Pump Oiler Goal (LTG) Pt able to get into the local pool and do her prior ex program with modifications as needed. LTG Duration 08/16/20 (08/01/20: MET GOAL) Two Impairment Antalgic gait using a FWW for safety Short Term Goal (STG) Pt will be able to walk with a normal gait pattern without a walker. (06/27/20: Very slight antalgic gait noted) STG Duration 07/05/20 (06/27/20: MET GOAL) Fdc Goal (LTG) Pt will be able to walk a long distance of 6 blks or 2-3 miles with mild to no difficulty. LTG Duration 08/16/20 (07/22/20: MET GOAL) One Impairment Lacks appropriate self care HEP Fdc Goal (LTG) Pt will be independent in a self care HEP for continued L knee/hip exercises. HEP TO DATE: INSTRUCTIONS GIVEN: *Do's/Don 'ts of lymph massage, *Quad/ Iliopsas stretch. *LE self lymph massage. AROM: *Bilateral BKFO, * Sitting knee ext, *Supine Ankle pumps, and *written I/S for knee flex stretch f/b 10 active stretches. STANDING: * Heel raises. RECOMMENDED POOL EXERCISES: * Knee flexion exercises. LTG Duration 08/16/20 (07/18/20: Progressing) Progress Towards Goals Progress Comments L knee AROM to start goal met. Pt AROM is 0-127 deg's, PROM at end of treatment was 130 deg's (to start 128 deg's). Assessment Summary Assessment Pt met goals except for balance HEP. Positive response to previous treatment with much improved pt awareness of her limited standing balance. Physical Therapy Plan Frequency and Duration Frequency of Treatment 1 more visit Plan of Care Start Date 06/24/20 Plan of Care End Date 08/16/20 Next Visit Focus/Plan Next Note Type Treatment Note Next Visit Plan 1 more visit for review of HEP (balance & ankle strengthening) and L knee ROM prior to DC. Emphasis on balance training/gait, ROM flex L knee ex's, then strengthening. (Note: Pt insurance [place]). Pt is s/p L TKA (04/21/20) & Manipulation (06/24/20) for improving knee flex to at least 120 deg's or more. If needed: monitor BP/HR during therapy due to occasional sympathetic response to stretching/pain. If needed, cryotherapy/Cryocuff in semi- reclined position with blanket for warmth.
--- NOTE | 2020-08-15 16:09 | PT.OTN ---
Current Diagnoses Unilateral primary osteoarthritis, left knee (08/15/20) Effusion, right knee (08/15/20) Pain in right knee (08/15/20) Muscle weakness (generalized) (08/15/20) Other abnormalities of gait and mobility (08/15/20) Physical Therapy Treatment Note PT-OP-A Visit Information Start: 04/23/20 17:37 Freq: Status: Active Protocol: Document 08/15/20 14:23 LRN (Rec: 08/15/20 15:07 LRN [id number]) Out-Patient Physical Therapy Visit Information Visit Information Visit Type Treatment Note Visit Start Time 14:23 Visit Stop Time 15:03 Total Visit Minutes 40 Visit Number 35 Evaluation Information Evaluation Date 04/29/20 Precautions Precautions Arthritis, Back & Neck pain since surgery. PT-OP-B Current Condition Start: 04/23/20 17:37 Freq: Status: Active Protocol: Document 06/24/20 13:41 LRN (Rec: 06/24/20 14:25 LRN [id number]) Current Condition History of Current Condition Onset Date 06/21/20 Current Complaints L knee limited ROM. History of Current Condition Pt is a 75 yo female who underwent a L TKA on 04/21/20 and is now returning after a L knee manipulation on 06/21/20. Pt has sensation in the L LE with no complaints of pain with pressure at the knee. Pt has sensation to touch, hot/ cold, pressure (decreased). Prior Treatments and Tests L TKA rehab 04/29/20 - 06/21/20. Developmental History Developmental History R Anterior cruciate and MCL surgery after ski fall (1976) followed by surgery to repair and was in a full leg cast for 6 weeks. Pt reports arthritis set and has had injections in the R knee since . Treatment Goals Patient/Caregiver Goals At minimal 120 deg's L knee active flexion. Prior Functional Status Baseline Function- ADL's Modified Independent Baseline Function- Mobility Independent Baseline Function- Gait Antalgic Gait, stiffness of R knee Baseline Function- Other In surgery: 140 deg's L knee flexion. Current Functional Impairments (Reported) Functional Limitations- ADL's Tired, from AM L knee manipulation. Functional Limitations- Mobility/Gait Ambs with an antalgic gait. Functional Limitations- Other L knee AROM: Sittin deg's. Supine active: 110 deg's; passive: 120 deg's. Personal Factors Other Personal Factors That May Effect Lives alone. Therapy/Recovery PT-OP-C Subjective Start: 04/23/20 17:37 Freq: Status: Active Protocol: Document 08/15/20 14:23 LRN (Rec: 08/15/20 15:07 LRN [id number]) OP-PT Subjective Patient Comments Patient Comments Has been doing water aerobics. Still unsteady going down stairs. Patient Questionnaires Lower Extremity Functional Scale LEFS Score 64 LEFS Impairment 1 to 19% Impaired (Score 63-79 ) PT-OP-G Mobility & Gait Start: 04/23/20 17:37 Freq: Status: Active Protocol: Document 07/02/20 10:34 LRN (Rec: 07/02/20 11:58 LRN [id number]) OP Gait Assessment Comments Gait Comments Pt holds L knee moderately stiff with gait. PT-OP-H Neuro Start: 04/23/20 17:37 Freq: Status: Active Protocol: Document 07/22/20 09:47 LRN (Rec: 07/22/20 10:31 LRN [id number]) Vital Signs Pulse Resting Pulse at Rest (bpm) 81 Pulse Assessment Method Pulse Ox/Monitor Blood Pressure Resting Blood Pressure (90/60-120/80 mmHg) 107/76 Blood Pressure Source Automatic Cuff,Left Upper Extremity Immediately upon sitting from supine Blood Pressure (90/60-120/80 mmHg) 106/71 Blood Pressure Source Automatic Cuff,Left Upper Extremity PT-OP-J Posture/Palpation/Skin Start: 04/23/20 17:37 Freq: Status: Active Protocol: Document 04/29/20 12:47 LRN (Rec: 04/29/20 14:04 LRN [id number]) Palpation Assessment Location L knee Palpation Location Around L knee joint Palpation Findings Edema,Soft Tissue Tightness, Tenderness Palpation Details Increased temperature PT-OP-K Range of Motion Start: 04/23/20 17:37 Freq: Status: Active Protocol: Document 08/15/20 14:23 LRN (Rec: 08/15/20 15:07 LRN [id number]) Knee Goniometric Range of Motion Knee Supine R knee AROM Knee ROM WFL Yes Patient Position Supine Flexion Active (degrees) 127 Flexion Passive (degrees) 128 Supine L knee AROM Knee ROM WFL Yes Patient Position Supine Flexion Active (degrees) 127 Flexion Passive (degrees) 130 Comments Pt did not need small roll behind the knee to eliminate pain. Pt had no pain with AROM or PROM. Sitting L knee AROM Knee ROM WFL Yes Patient Position Sitting Flexion Active (degrees) 110 Sitting R knee ROM Knee ROM WFL Yes Patient Position Sitting Flexion Active (degrees) 118 PT-OP-M Strength Start: 04/23/20 17:37 Freq: Status: Active Protocol: Document 06/24/20 13:41 LRN (Rec: 06/24/20 17:29 LRN [id number]) Knee Strength Knee Manual Muscle Testing Right Flexion (S2) 5 Normal Extension (L3) 5 Normal Left Flexion (S2) 4+ Good+ Extension (L3) 4+ Good+ PT-OP-Q Treatments Start: 04/23/20 17:37 Freq: Status: Active Protocol: Document 08/15/20 14:23 LRN (Rec: 08/15/20 15:07 LRN [id number]) Cardio Equipment Recumbent Bicycle Duration (Minutes) 7 Resistance 3 Seat Position 0 Therapeutic Exercises Supine Exercises knee flexion Supine Exercise Name CKC strengthenin Side left Resistance L3 TB Reps/Minutes 5 Heel Slides Supine Exercise Name Repetitive passive knee flex, & Ecc/Conc strengthening Side left Equipment Used Strap & TBall, Tb #2 Reps/Minutes 10' Comments ROM: 127 deg AROM slide on table, passive 124 deg Standing Exercises Coordination step ups & step downs Standing Exercise Name Coordination step ups & step downs Equipment Used Stairs with railing Reps/Minutes 8' step down Standing Exercise Name eccentric step down (cued wt into ankle/posterior chain) Side left Resistance AROM Equipment Used 4 step, contact rail Reps/Minutes 2x10 Comments discomfort anterior L knee initially, just little tension after cues Manual Therapy Treatment Soft Tissue Mobilization L knee scar Body Location Inferomedial to distal scar and anterior @ knee Mobilization Type Myofascial Release Intensity/Depth Moderate Body Position Sitting Neuro Re-Education Treatment Balance Activities Tandem standing Details Tandem stance (L foot, then R foot behind) Surface Firm Reps/Duration 1' intervals x 3 with rests between SLS Details SLS Surface Level, firm & on Blue Foam Comments left - 28 sec right - 20 secs Self-Care/Home Management Treatment Education Patient Education Home Exercise Program Activities Self-Care/Home Management Activities Re-issued Standing balance: Tandem & SLS (firm and soft surfaceBalance ex's). PT-OP-R Modalities Start: 04/23/20 17:37 Freq: Status: Active Protocol: Document 08/01/20 11:20 LRN (Rec: 08/01/20 11:09 LRN [id number]) Hot Pack/Cold Pack Treatment Cold Pack Location L knee cryocuff Patient Position Hooklying Treatment Duration (minutes) 10 Patient Tolerance Good Comments No blankets needed today. 2 pillows under head no symptoms, BP not assessed. PT-OP-T Assessment and Plan Start: 04/23/20 17:37 Freq: Status: Active Protocol: Document 08/15/20 14:23 LRN (Rec: 08/15/20 15:07 LRN [id number]) Physical Therapy Assessment Goals Four Impairment Decreased L knee AROM (10-52 deg's) Short Term Goal (STG) Increase L knee AROM 0-120 deg 's. (AROM before surgery: 5- 100 deg's). (07/11/20: 0-125 deg AROM, 128 deg PROM) STG Duration 06/21/20 (06/25/20: MET GOAL) Usp Goal (LTG) Increase L knee AROM 0-125 deg 's. (07/11/20: Progressing consistancy: L knee AROM is 127 deg, post activity PROM is 133 deg's). LTG Duration 06/28/20 (08/01/20: MET GOAL) Three Impairment Pt unable to return to her prior pool exercise program, independently Short Term Goal (STG) Pt scar will be healed with good scar mobility and L knee AROM at least 5-95 deg's (06/25/20: Good scar mobility. L knee AROM in sitting is 4- 110 deg's; 07/09/20: manual and self STMs scar 0-126 deg AROM) STG Duration 06/28/20 (05/31/20: MET GOAL) Usp Goal (LTG) Pt able to get into the local pool and do her prior ex program with modifications as needed. LTG Duration 08/16/20 (08/01/20: MET GOAL) Two Impairment Antalgic gait using a FWW for safety Short Term Goal (STG) Pt will be able to walk with a normal gait pattern without a walker. (06/27/20: Very slight antalgic gait noted) STG Duration 07/05/20 (06/27/20: MET GOAL) Center Mgr Goal (LTG) Pt will be able to walk a long distance of 6 blks or 2-3 miles with mild to no difficulty. LTG Duration 08/16/20 (07/22/20: MET GOAL) One Impairment Lacks appropriate self care HEP Usp Goal (LTG) Pt will be independent in a self care HEP for continued L knee/hip exercises. HEP TO DATE: INSTRUCTIONS GIVEN: *Do's/Don 'ts of lymph massage, *Quad/ Iliopsas stretch. *LE self lymph massage. AROM: *Bilateral BKFO, * Sitting knee ext, *Supine Ankle pumps, and *written I/S for knee flex stretch f/b 10 active stretches. STANDING: * Heel raises. RECOMMENDED POOL EXERCISES: * Knee flexion exercises. LTG Duration 08/16/20 (08/15/20: MET GOAL) Assessment Summary Assessment Pt has done very well with therapy following her L knee manipulation. She demonstrates functional L knee AROM/PROM without pain and she has returned to prior function except for apprehension with stair ambulation. She demonstrates normal stair ambulation ability without discomfort at end of therapy. The pt's balance ability has improved and she is now ready to continue with her indepedent self care HEP. Physical Therapy Plan Discharge Physical Therapy Discharge Reasons Goals Met Discharge Comments Pt has done very well with therapy. Thank you for your referral.
== END 2020-08-16 07:44 | disposition home or self-care (01) ==
LOC: PHYS 14:15
PROVIDERS: Family Provider Physician Assistant; PCP Physician Assistant; Referring Provider Orthopaedic Surgery; Visit Provider Orthopaedic Surgery
DX: M17.12 Unilateral primary osteoarthritis, left knee (principal); M62.81 Muscle weakness (generalized); M25.561 Pain in right knee; R26.89 Other abnormalities of gait and mobility; M25.461 Effusion, right knee
CPT/HCPCS: 97010; 97110; 97112; 97116; 97140; 97162; 97535

== ENCOUNTER → 2021-03-10 17:22 | Outpatient (CLI) | payer MEDICARE, OTHER, SELFPAY ==
--- NOTE | 2021-03-10 17:24 | DI.MG.S_ITS ---
BILATERAL DIGITAL SCREENING MAMMOGRAM 3D/2D WITH CAD: 03/10/2021 CLINICAL: Routine screening. Family history of breast cancer. Comparison is made to exams dated: 12/09/2018 mammogram, 11/27/2017 mammogram, and 09/24/2016 mammogram - [facility]. There are scattered fibroglandular elements in both breasts. Current study was also evaluated with a Computer Aided Detection (CAD) system. There are benign calcifications in both breasts. No significant masses, calcifications, or other findings are seen in either breast. There has been no significant interval change. IMPRESSION: BENIGN There is no mammographic evidence of malignancy. A 1 year screening mammogram is recommended. This exam was interpreted at Station ID: [id number]. NOTE: For mammograms, a report in lay terms will be sent to the patient. Approximately 15% of breast malignancies will not be visualized mammographically. In the management of a palpable breast mass, a negative mammogram must not discourage biopsy of a clinically suspicious lesion. Electronically Signed By: Yarelis [email or web address]/bobbi:03/11/2021 11:32:05 letter sent: Normal Exam ACR BI-RADS Category 2: Benign Finding(s) [id number]
== END ==
PROVIDERS: Family Provider Physician Assistant; PCP Physician Assistant; Referring Provider Family Medicine; Visit Provider Family Medicine
DX: Z12.31 Encounter for screening mammogram for malignant neoplasm of breast (principal); Z80.3 Family history of malignant neoplasm of breast
CPT/HCPCS: 77063; 77067

== ENCOUNTER → 2021-03-17 09:36 | Outpatient (CLI) | payer MEDICARE, OTHER, SELFPAY ==
--- NOTE | 2021-03-17 09:42 | DI.RAD.S_ITS ---
PROCEDURE: XR CERVICAL SPINE 2V OR 3V INDICATIONS: NECK PAIN TECHNIQUE: 3 view(s) of the cervical spine were acquired. COMPARISON: None. FINDINGS: Bones: No fractures or dislocations to the C7-T1 level. There is reversal of cervical curvature with apex at C5. There is trace retrolisthesis of C3 on C4, C4 on C5 and trace retrolisthesis of C5 on C6. Severe disc space narrowing is present at C5-6, moderate C6-7 as well as C3-4 and C4-5. Small anterior osteophytes are present at C5 and C6. Multilevel uncovertebral hypertrophy is present. The lateral masses of C1 appear intact on the odontoid view. No suspicious bony lesions. Soft tissues: No prevertebral soft tissue swelling. IMPRESSION: Multilevel degenerative changes as well as reversal cervical curvature as above. Dictated by: Anna Davison M.D. on 03/17/2021 at 14:19 Approved by: Anna Davison M.D. on 03/17/2021 at 14:23
== END ==
PROVIDERS: Family Provider Physician Assistant; PCP Physician Assistant; Referring Provider Family Medicine; Visit Provider Family Medicine
DX: M54.2 Cervicalgia (principal); M47.812 Spondylosis without myelopathy or radiculopathy, cervical region; M85.852 Other specified disorders of bone density and structure, left thigh; Z78.0 Asymptomatic menopausal state; Z87.891 Personal history of nicotine dependence
CPT/HCPCS: 72040; 77080

== ENCOUNTER → 2021-03-18 07:24 | Outpatient (CLI) | payer MEDICARE, OTHER, SELFPAY ==
[2021-03-18 08:31] LABS: COVID19 -Nasal RAPID Negative (Negative)
== END ==
PROVIDERS: Family Provider Physician Assistant; PCP Physician Assistant; Referring Provider Student in an Organized Health Care Education/Training Program; Visit Provider Student in an Organized Health Care Education/Training Program
DX: Z20.822 Contact with and (suspected) exposure to COVID-19 (principal)
CPT/HCPCS: 87635

== ENCOUNTER 2021-08-29 14:30 | Outpatient (RCR) | payer MEDICARE, OTHER, SELFPAY ==
--- NOTE | 2021-05-06 17:03 | PT.OIE ---
Current Diagnoses Tension-type headache, unspecified, not intractable (05/06/21) Cervicalgia (05/06/21) Visit Care Team Role Provider Type Latesha Fernandes PA-C Family Provider Non-Staff Specialty: Internal Medicine Address: [address] [place] [address], [id number] Email: [email or web address] Kinney Locks[employer] Ntaalie Garcia MD Attending Provider Physician Primary Care Provider Referring Provider Specialty: Family Practice Address: [address] [place] [address], [address], [place], [address] Email: [email or web address] Physical Therapy Initial Evaluation PT-OP-A Visit Information Start: 05/01/21 17:08 Freq: Status: Active Protocol: Document 05/06/21 13:03 LRN (Rec: 05/06/21 13:47 LRN [id number]) Out-Patient Physical Therapy Visit Information Visit Information Visit Type Initial Evaluation Visit Start Time 13:03 Visit Stop Time 13:45 Total Visit Minutes 42 Visit Number 1 Evaluation Information Evaluation Date 05/06/21 Precautions Precautions L knee replacement PT-OP-B Current Condition Start: 05/01/21 17:08 Freq: Status: Active Protocol: Document 05/06/21 13:03 LRN (Rec: 05/06/21 13:47 LRN [id number]) Current Condition History of Current Condition Onset Date Jan 2021 Current Complaints R sided of neck pain when on computer, reading, turning head and sleeping. History of Current Condition Pt reports just before Thanksgiving she had a lot going on and was under a lot of stress. States she holds stress in her neck region. States X-ray taken showed bones out of alignment and arthritis. Now life is more normal and had a massage recently that helped a lot. She has neck aches with sleeping and being on the computer. Turning the head is hard. Prior Treatments and Tests X-ray 03/29/21: Multilevel degenerative changes and reversal cervical curvature. Trace retrolisthesis of C3 on C4, C4 on C5 and trace retrolisthesis of C5 on C6. Severe disc space narrowing is present at C5-6, moderate C6- 7 as well as C3-4 and C4-5 Future Testing and Treatments Planned None Treatment Goals Patient/Caregiver Goals Exercises to strengthen the neck and take some stress off the bones. Get advise on what can be done for the neck and do therapy as advised. Prior Functional Status Baseline Function- ADL's Independent Baseline Function- Mobility Independent Baseline Function- Other Sleeping through the night. Some neck pain with stress. Limited to sitting at computer , because head goes forward to see computer, causing pain in the neck. Current Functional Impairments (Reported) Functional Limitations- ADL's Constant neck pain. Interrupts sleeping, wakes 1-2 /night. Able to sleep through the night with Advil. Limited in neck mobility and with driving. Limited to sitting at computer , because head goes forward to see computer, causing pain in the neck. Personal Factors Other Personal Factors That May Effect Lives alone. Therapy/Recovery Arthritis with upper neck pain . Works for [employer]. PT-OP-C Subjective Start: 05/01/21 17:08 Freq: Status: Active Protocol: Document 05/06/21 13:03 LRN (Rec: 05/06/21 13:47 LRN [id number]) Patient Questionnaires Neck Disability Index NDI Score 13 Neck Disability Index Impairment 20 to 39% Impaired (Score 10- 19) Quick Dash- Upper Extremity Quick Dash UE Score 22.72 Quick Dash UE Impairment 20 to 39% Impaired (Score 20- 39) OP-PT Pain Assessment Pain Assessment Grid Paper Pain Assessment Grid Completed Yes Location Neck Pain Location Details R cervical parapspinals and R UT Intensity 3 Scale Used Numeric (0 - 10) Description Aching Frequency Constant Other Pain Aggravating Factors Working on computer, focusing on something (reading), or static sit/stand Pain Alleviating Factors Heat,Changing Position Other Pain Alleviating Factors Medications (takes Celebrix for general arthritis) PT-OP-H Neuro Start: 05/01/21 17:08 Freq: Status: Active Protocol: Document 05/06/21 13:03 LRN (Rec: 05/06/21 13:47 LRN [id number]) Sensation Evaluation Gross Sensation Gross Sensation Right UE Impaired,Left LE Impaired Sensation Description Tingling Comments Summary Comments Raynaud's syndrome. Tingling in fingertips if carrying grocery bags. Deep Tendon Reflex & Clonus Assessment Deep Tendon Reflex Bilateral Brachioradialis Deep Tendon Reflex 2+ Normal Bilateral Tricep Deep Tendon Reflex 2+ Normal Bilateral Bicep Deep Tendon Reflex 1+ Diminished PT-OP-J Posture/Palpation/Skin Start: 05/01/21 17:08 Freq: Status: Active Protocol: Document 05/06/21 13:03 LRN (Rec: 05/06/21 13:47 LRN [id number]) Posture Evaluation Position Standing Head/C-Spine Posture Neutral Position T-Spine Posture Neutral L-Spine Posture Neutral Shoulder Posture (R) Rounded,(R) Forward,(L) Elevated Scapula Posture (L) Neutral,(R) Neutral Pelvis Posture Neutral Weight Distribution Balanced Knee Posture (L) Neutral,(R) Neutral Ankle/Foot Posture (L) Neutral,(R) Neutral Palpation Assessment Location Neck Palpation Location R UT, paraspinals and suboccipital. Palpation Findings Soft Tissue Tightness,Muscle Guarding,Tenderness PT-OP-K Range of Motion Start: 05/01/21 17:08 Freq: Status: Active Protocol: Document 05/06/21 13:03 LRN (Rec: 05/06/21 13:47 LRN [id number]) Cervical Spine Range of Motion Cervical Spine Active Degrees Testing Position Sitting Flexion 55 Extension 20 Rotation Left 50 Rotation Right 52 Lateral Flexion Left 20 Lateral Flexion Right 28 ROM Limitations Soft Tissue Tightness,Bony Restriction Shoulder Goniometric Range of Motion Shoulder Right Active Comments WNL Left Active Comments WNL PT-OP-M Strength Start: 05/01/21 17:08 Freq: Status: Active Protocol: Document 05/06/21 13:03 LRN (Rec: 05/06/21 13:47 LRN [id number]) Cervical Spine Strength Cervical Spine Manual Muscle Testing Comments Generally 5/5 Shoulder Strength Shoulder Manual Muscle Testing Right Comments Generally 5/5 Left Comments Generally 5/5 PT-OP-Q Treatments Start: 05/01/21 17:08 Freq: Status: Active Protocol: Document 05/06/21 13:03 LRN (Rec: 05/06/21 13:47 LRN [id number]) Self-Care/Home Management Treatment Education Patient Education Home Exercise Program Other Education Discussed results of evaluation, goals, and plan of care (POC). Pt agreeable to goals and POC. Activities Self-Care/Home Management Activities I/S pt in self care HEP: Neck stretch: SB & rot, holds 10 secs x 6-10. PT-OP-T Assessment and Plan Start: 05/01/21 17:08 Freq: Status: Active Protocol: Document 05/06/21 13:03 LRN (Rec: 05/06/21 13:47 LRN [id number]) Physical Therapy Assessment Rehab Potential Rehabilitation Potential Excellent Evaluation Complexity Number of Personal Factors/Comorbidities 1-2 Number of Body Systems Impaired 4 or More Clinical Presentation at Evaluation Evolving Impairments Impairments Activity Tolerance,Pain, Posture,ROM,Soft Tissue Mobility Goals Three Impairment Neck pain rated 3/10 resulting in decreased function and diffulty sleeping Impairment NDI is 13 (20-39% impaired), UE Quickdash is 22.72 (20-39% impaired) Short Term Goal (STG) Decrease neck pain with pt will be able to improve sleep ability. STG Duration 05/27/21 Half-Way Goal (LTG) Pt will demonstrate improved function per score of NDI of 9 or less or UE Quickdash score of 19 or less (indicating for both, 1-19% impaired). LTG Duration 06/22/21 Two Impairment Decreased neck mobility Short Term Goal (STG) Pt will be educated and independent with a neck stretch HEP. STG Duration 05/27/21 Half-Way Goal (LTG) Improve neck mobility, with pt able to drive with greater ease when looking around ( turning of head). LTG Duration 06/22/21 One Impairment Pt lacks appropriate self care HEP. Short Term Goal (STG) Pt will be educated in proper posture on computer and with reading, STG Duration 05/27/21 Half-Way Goal (LTG) Pt will be educated in a self care HEP of cervical stabilization ex's to manage her pain at a tolerable level. LTG Duration 06/22/21 Assessment Summary Assessment Pt presents with soft tissue dysfunction of the cervical spine (tightness of paraspinals and UT), and mechanical changes of the C/S spine with reverse curvature and multi-level degenerative changes, resulting in decreased neck mobility and overall decreased function. The pt will benefit from skilled physical therapy to achieve the above stated goals . Physical Therapy Plan Frequency and Duration Frequency of Treatment 2x/Week Plan of Care Start Date 05/06/21 Plan of Care End Date 06/22/21 Therapeutic Interventions Therapeutic Interventions Home Exercise Program,Joint Mobilizations,Manual Therapy, Patient/Caregiver Education, Self-Care/Home Management,Soft Tissue Mobilization, Therapeutic Activities, Therapeutic Exercises Modalities Cold Pack/Ice Massage,Electric Stimulation,Hot Packs, Ultrasound Next Visit Focus/Plan Next Note Type Treatment Note Next Visit Plan STM of R C/S paraspinal & UT, f/b manual tx and stretch to C/S. Review of I/S neck stretches and issue handout for HEP. Add HEP: Neck ext AROM ex. Manual therapy to improve joint mobility of neck into extension. Pt education in proper posture at computer, with reading, and sleeping posture. End with modalities of needed (MH/IFES or MH or CP).
--- NOTE | 2021-05-06 17:03 | PT.OPPOC ---
Physical, Occupational & Speech Therapy At [facility] Current Diagnoses Tension-type headache, unspecified, not intractable (05/06/21) Cervicalgia (05/06/21) Visit Care Team Role Provider Type Latesha Fernandes PA-C Family Provider Non-Staff Specialty: Internal Medicine Address: [address] [place] [address], [id number] Email: [email or web address] Natalie Garcia MD Attending Provider Physician Primary Care Provider Referring Provider Specialty: Family Practice Address: [facility], [address], [place], [address] Email: [email or web address] Plan Of Care PT-OP-T Assessment and Plan Start: 05/01/21 17:08 Freq: Status: Active Protocol: Document 05/06/21 13:03 LRN (Rec: 05/06/21 13:47 LRN [id number]) Physical Therapy Assessment Rehab Potential Rehabilitation Potential Excellent Evaluation Complexity Number of Personal Factors/Comorbidities 1-2 Number of Body Systems Impaired 4 or More Clinical Presentation at Evaluation Evolving Impairments Impairments Activity Tolerance,Pain, Posture,ROM,Soft Tissue Mobility Goals Three Impairment Neck pain rated 3/10 resulting in decreased function and diffulty sleeping Impairment NDI is 13 (20-39% impaired), UE Quickdash is 22.72 (20-39% impaired) Short Term Goal (STG) Decrease neck pain with pt will be able to improve sleep ability. STG Duration 05/27/21 Supply Chain Planner Goal (LTG) Pt will demonstrate improved function per score of NDI of 9 or less or UE Quickdash score of 19 or less (indicating for both, 1-19% impaired). LTG Duration 06/22/21 Two Impairment Decreased neck mobility Short Term Goal (STG) Pt will be educated and independent with a neck stretch HEP. STG Duration 05/27/21 [facility] Goal (LTG) Improve neck mobility, with pt able to drive with greater ease when looking around ( turning of head). LTG Duration 06/22/21 One Impairment Pt lacks appropriate self care HEP. Short Term Goal (STG) Pt will be educated in proper posture on computer and with reading, STG Duration 05/27/21 [facility] Goal (LTG) Pt will be educated in a self care HEP of cervical stabilization ex's to manage her pain at a tolerable level. LTG Duration 06/22/21 Assessment Summary Assessment Pt presents with soft tissue dysfunction of the cervical spine (tightness of paraspinals and UT), and mechanical changes of the C/S spine with reverse curvature and multi-level degenerative changes, resulting in decreased neck mobility and overall decreased function. The pt will benefit from skilled physical therapy to achieve the above stated goals . Physical Therapy Plan Frequency and Duration Frequency of Treatment 2x/Week Plan of Care Start Date 05/06/21 Plan of Care End Date 06/22/21 Therapeutic Interventions Therapeutic Interventions Home Exercise Program,Joint Mobilizations,Manual Therapy, Patient/Caregiver Education, Self-Care/Home Management,Soft Tissue Mobilization, Therapeutic Activities, Therapeutic Exercises Modalities Cold Pack/Ice Massage,Electric Stimulation,Hot Packs, Ultrasound Next Visit Focus/Plan Next Note Type Treatment Note Next Visit Plan STM of R C/S paraspinal & UT, f/b manual tx and stretch to C/S. Review of I/S neck stretches and issue handout for HEP. Add HEP: Neck ext AROM ex. Manual therapy to improve joint mobility of neck into extension. Pt education in proper posture at computer, with reading, and sleeping posture. End with modalities of needed (MH/IFES or MH or CP). Plan of Care Dates Plan of Care Start Date 05/06/21 Plan of Care End Date 06/22/21 Electronically Signed by: Gabriella Hirsch, PT 05/06/21 1326 Please Sign and Return: I have reviewed this Plan of Care and certify that the skilled therapy services above are required to meet the patient?s needs. Physician Signature Date Printed Name and Credentials Clinical Instructor Signature Printed Name and Credentials
--- NOTE | 2021-05-08 16:30 | PT.OTN ---
Current Diagnoses Tension-type headache, unspecified, not intractable (05/08/21) Cervicalgia (05/08/21) Physical Therapy Treatment Note PT-OP-A Visit Information Start: 05/01/21 17:08 Freq: Status: Active Protocol: Document 05/08/21 13:48 LRN (Rec: 05/08/21 16:29 LRN [id number]) Out-Patient Physical Therapy Visit Information Visit Information Visit Type Treatment Note Visit Start Time 13:48 Visit Stop Time 14:35 Total Visit Minutes 47 Visit Number 2 Evaluation Information Evaluation Date 05/06/21 Precautions Precautions L knee replacement PT-OP-B Current Condition Start: 05/01/21 17:08 Freq: Status: Active Protocol: Document 05/06/21 13:03 LRN (Rec: 05/06/21 13:47 LRN [id number]) Current Condition History of Current Condition Onset Date Jan 2021 Current Complaints R sided of neck pain when on computer, reading, turning head and sleeping. History of Current Condition Pt reports just before Thanksgi she had a lot going on and was under a lot of stress. States she holds stress in her neck region. States X-ray taken showed bones out of alignment and arthritis. Now life is more normal and had a massage recently that helped a lot. She has neck aches with sleeping and being on the computer. Turning the head is hard. Prior Treatments and Tests X-ray 03/29/21: Multilevel degenerative changes and reversal cervical curvature. Trace retrolisthesis of C3 on C4, C4 on C5 and trace retrolisthesis of C5 on C6. Severe disc space narrowing is present at C5-6, moderate C6- 7 as well as C3-4 and C4-5 Future Testing and Treatments Planned None Treatment Goals Patient/Caregiver Goals Exercises to strengthen the neck and take some stress off the bones. Get advise on what can be done for the neck and do therapy as advised. Prior Functional Status Baseline Function- ADL's Independent Baseline Function- Mobility Independent Baseline Function- Other Sleeping through the night. Some neck pain with stress. Limited to sitting at computer , because head goes forward to see computer, causing pain in the neck. Current Functional Impairments (Reported) Functional Limitations- ADL's Constant neck pain. Interrupts sleeping, wakes 1-2 /night. Able to sleep through the night with Advil. Limited in neck mobility and with driving. Limited to sitting at computer , because head goes forward to see computer, causing pain in the neck. Personal Factors Other Personal Factors That May Effect Lives alone. Therapy/Recovery Arthritis with upper neck pain . Works for [employer] program. PT-OP-C Subjective Start: 05/01/21 17:08 Freq: Status: Active Protocol: Document 05/08/21 13:48 LRN (Rec: 05/08/21 16:29 LRN [id number]) OP-PT Subjective Patient Comments Patient Comments No changes PT-OP-H Neuro Start: 05/01/21 17:08 Freq: Status: Active Protocol: Document 05/06/21 13:03 LRN (Rec: 05/06/21 13:47 LRN [id number]) Sensation Evaluation Gross Sensation Gross Sensation Right UE Impaired,Left LE Impaired Sensation Description Tingling Comments Summary Comments Raynaud's syndrome. Tingling in fingertips if carrying grocery bags. Deep Tendon Reflex & Clonus Assessment Deep Tendon Reflex Bilateral Brachioradialis Deep Tendon Reflex 2+ Normal Bilateral Tricep Deep Tendon Reflex 2+ Normal Bilateral Bicep Deep Tendon Reflex 1+ Diminished PT-OP-J Posture/Palpation/Skin Start: 05/01/21 17:08 Freq: Status: Active Protocol: Document 05/06/21 13:03 LRN (Rec: 05/06/21 13:47 LRN [id number]) Posture Evaluation Position Standing Head/C-Spine Posture Neutral Position T-Spine Posture Neutral L-Spine Posture Neutral Shoulder Posture (R) Rounded,(R) Forward,(L) Elevated Scapula Posture (L) Neutral,(R) Neutral Pelvis Posture Neutral Weight Distribution Balanced Knee Posture (L) Neutral,(R) Neutral Ankle/Foot Posture (L) Neutral,(R) Neutral Palpation Assessment Location Neck Palpation Location R UT, paraspinals and suboccipital. Palpation Findings Soft Tissue Tightness,Muscle Guarding,Tenderness PT-OP-K Range of Motion Start: 05/01/21 17:08 Freq: Status: Active Protocol: Document 05/06/21 13:03 LRN (Rec: 05/06/21 13:47 LRN [id number]) Cervical Spine Range of Motion Cervical Spine Active Degrees Testing Position Sitting Flexion 55 Extension 20 Rotation Left 50 Rotation Right 52 Lateral Flexion Left 20 Lateral Flexion Right 28 ROM Limitations Soft Tissue Tightness,Bony Restriction Shoulder Goniometric Range of Motion Shoulder Right Active Comments WNL Left Active Comments WNL PT-OP-M Strength Start: 05/01/21 17:08 Freq: Status: Active Protocol: Document 05/06/21 13:03 LRN (Rec: 05/06/21 13:47 LRN [id number]) Cervical Spine Strength Cervical Spine Manual Muscle Testing Comments Generally 5/5 Shoulder Strength Shoulder Manual Muscle Testing Right Comments Generally 5/5 Left Comments Generally 5/5 PT-OP-Q Treatments Start: 05/01/21 17:08 Freq: Status: Active Protocol: Document 05/08/21 13:48 LRN (Rec: 05/08/21 16:29 LRN [id number]) Therapeutic Exercises Supine Exercises C/R stretch Supine Exercise Name C/R C. SB to the Left Reps/Minutes 6' C/R stretch into neck R rot Supine Exercise Name Contract relax R rot stretch Side right Reps/Minutes 5' Manual Therapy Treatment Soft Tissue Mobilization R Scalenes Body Location R scalenes Mobilization Type Myofascial Release,Sustained Pressure R UT Body Location R UT Mobilization Type Strumming,Sustained Pressure Intensity/Depth Moderate Body Position Prone Self-Care/Home Management Treatment Education Other Education Discussed use of MH or CP for pain management. Activities Self-Care/Home Management Activities Verbal review of neck stretches and instructions for pt to continue neck stretches . PT-OP-R Modalities Start: 05/01/21 17:08 Freq: Status: Active Protocol: Document 05/08/21 13:48 LRN (Rec: 05/08/21 16:29 LRN [id number]) Electric Stimulation Electric Stimulation Premod neck>UT Body Location UT bilatreally Duration (Minutes) 10 Intensity 10 Combined With Heat/Cold Hot Pack Comments Pt semi-reclined with bolster under legs. Hot Pack/Cold Pack Treatment Hot Pack Location Back & neck Treatment Duration (minutes) 10 Comments Pt semi-reclined with legs on bolster PT-OP-T Assessment and Plan Start: 05/01/21 17:08 Freq: Status: Active Protocol: Document 05/08/21 13:48 LRN (Rec: 05/08/21 16:29 LRN [id number]) Physical Therapy Assessment Goals Three Impairment Neck pain rated 3/10 resulting in decreased function and diffulty sleeping Impairment NDI is 13 (20-39% impaired), UE Quickdash is 22.72 (20-39% impaired) Short Term Goal (STG) Decrease neck pain with pt will be able to improve sleep ability. STG Duration 05/27/21 Liver Trimmer Goal (LTG) Pt will demonstrate improved function per score of NDI of 9 or less or UE Quickdash score of 19 or less (indicating for both, 1-19% impaired). LTG Duration 06/22/21 Two Impairment Decreased neck mobility Short Term Goal (STG) Pt will be educated and independent with a neck stretch HEP. STG Duration 05/27/21 Liver Trimmer Goal (LTG) Improve neck mobility, with pt able to drive with greater ease when looking around ( turning of head). LTG Duration 06/22/21 One Impairment Pt lacks appropriate self care HEP. Short Term Goal (STG) Pt will be educated in proper posture on computer and with reading, STG Duration 05/27/21 Liver Trimmer Goal (LTG) Pt will be educated in a self care HEP of cervical stabilization ex's to manage her pain at a tolerable level. LTG Duration 06/22/21 Assessment Summary Assessment Increased ms tension and tightness in R lateral neck and UT after C. rot stretch. Pt felt relaxation with use of EStim. Physical Therapy Plan Frequency and Duration Frequency of Treatment 2x/Week Plan of Care Start Date 05/06/21 Plan of Care End Date 06/22/21 Next Visit Focus/Plan Next Note Type Treatment Note Next Visit Plan Assess response to STM of R C/ S paraspinal & UT, f/b manual tx and stretch to C/S and EStim. Review of I/S neck stretches and issue handout for HEP. Educate pt in proper posture at computer and reading, Add HEP: Neck ext AROM ex. Careful Manual therapy to improve joint mobility of neck into extension. Pt education in proper sleeping posture. Modalities (MH/IFES or MH or CP) for pain.
--- NOTE | 2021-05-13 17:26 | PT.OTN ---
Current Diagnoses Tension-type headache, unspecified, not intractable (05/13/21) Cervicalgia (05/13/21) Physical Therapy Treatment Note PT-OP-A Visit Information Start: 05/01/21 17:08 Freq: Status: Active Protocol: Document 05/13/21 13:02 LRN (Rec: 05/13/21 13:47 LRN [id number]) Out-Patient Physical Therapy Visit Information Visit Information Visit Type Treatment Note Visit Start Time 13:02 Visit Stop Time 13:50 Total Visit Minutes 50 Visit Number 3 Evaluation Information Evaluation Date 05/06/21 Precautions Precautions L knee replacement PT-OP-B Current Condition Start: 05/01/21 17:08 Freq: Status: Active Protocol: Document 05/06/21 13:03 LRN (Rec: 05/06/21 13:47 LRN [id number]) Current Condition History of Current Condition Onset Date Jan 2021 Current Complaints R sided of neck pain when on computer, reading, turning head and sleeping. History of Current Condition Pt reports just before Thanksgi she had a lot going on and was under a lot of stress. States she holds stress in her neck region. States X-ray taken showed bones out of alignment and arthritis. Now life is more normal and had a massage recently that helped a lot. She has neck aches with sleeping and being on the computer. Turning the head is hard. Prior Treatments and Tests X-ray 03/29/21: Multilevel degenerative changes and reversal cervical curvature. Trace retrolisthesis of C3 on C4, C4 on C5 and trace retrolisthesis of C5 on C6. Severe disc space narrowing is present at C5-6, moderate C6- 7 as well as C3-4 and C4-5 Future Testing and Treatments Planned None Treatment Goals Patient/Caregiver Goals Exercises to strengthen the neck and take some stress off the bones. Get advise on what can be done for the neck and do therapy as advised. Prior Functional Status Baseline Function- ADL's Independent Baseline Function- Mobility Independent Baseline Function- Other Sleeping through the night. Some neck pain with stress. Limited to sitting at computer , because head goes forward to see computer, causing pain in the neck. Current Functional Impairments (Reported) Functional Limitations- ADL's Constant neck pain. Interrupts sleeping, wakes 1-2 /night. Able to sleep through the night with Advil. Limited in neck mobility and with driving. Limited to sitting at computer , because head goes forward to see computer, causing pain in the neck. Personal Factors Other Personal Factors That May Effect Lives alone. Therapy/Recovery Arthritis with upper neck pain . Works for [employer] program. PT-OP-C Subjective Start: 05/01/21 17:08 Freq: Status: Active Protocol: Document 05/13/21 13:02 LRN (Rec: 05/13/21 13:47 LRN [id number]) OP-PT Subjective Patient Comments Patient Comments Sore after the last sssion but was fine the next day. PT-OP-H Neuro Start: 05/01/21 17:08 Freq: Status: Active Protocol: Document 05/06/21 13:03 LRN (Rec: 05/06/21 13:47 LRN [id number]) Sensation Evaluation Gross Sensation Gross Sensation Right UE Impaired,Left LE Impaired Sensation Description Tingling Comments Summary Comments Raynaud's syndrome. Tingling in fingertips if carrying grocery bags. Deep Tendon Reflex & Clonus Assessment Deep Tendon Reflex Bilateral Brachioradialis Deep Tendon Reflex 2+ Normal Bilateral Tricep Deep Tendon Reflex 2+ Normal Bilateral Bicep Deep Tendon Reflex 1+ Diminished PT-OP-J Posture/Palpation/Skin Start: 05/01/21 17:08 Freq: Status: Active Protocol: Document 05/06/21 13:03 LRN (Rec: 05/06/21 13:47 LRN [id number]) Posture Evaluation Position Standing Head/C-Spine Posture Neutral Position T-Spine Posture Neutral L-Spine Posture Neutral Shoulder Posture (R) Rounded,(R) Forward,(L) Elevated Scapula Posture (L) Neutral,(R) Neutral Pelvis Posture Neutral Weight Distribution Balanced Knee Posture (L) Neutral,(R) Neutral Ankle/Foot Posture (L) Neutral,(R) Neutral Palpation Assessment Location Neck Palpation Location R UT, paraspinals and suboccipital. Palpation Findings Soft Tissue Tightness,Muscle Guarding,Tenderness PT-OP-K Range of Motion Start: 05/01/21 17:08 Freq: Status: Active Protocol: Document 05/06/21 13:03 LRN (Rec: 05/06/21 13:47 LRN [id number]) Cervical Spine Range of Motion Cervical Spine Active Degrees Testing Position Sitting Flexion 55 Extension 20 Rotation Left 50 Rotation Right 52 Lateral Flexion Left 20 Lateral Flexion Right 28 ROM Limitations Soft Tissue Tightness,Bony Restriction Shoulder Goniometric Range of Motion Shoulder Right Active Comments WNL Left Active Comments WNL PT-OP-M Strength Start: 05/01/21 17:08 Freq: Status: Active Protocol: Document 05/06/21 13:03 LRN (Rec: 05/06/21 13:47 LRN [id number]) Cervical Spine Strength Cervical Spine Manual Muscle Testing Comments Generally 5/5 Shoulder Strength Shoulder Manual Muscle Testing Right Comments Generally 5/5 Left Comments Generally 5/5 PT-OP-Q Treatments Start: 05/01/21 17:08 Freq: Status: Active Protocol: Document 05/13/21 13:02 LRN (Rec: 05/13/21 13:47 LRN [id number]) Therapeutic Exercises Supine Exercises C Rot stretch Supine Exercise Name Active C. Rit stretch Side bilateral Reps/Minutes 6' C SB stretch Supine Exercise Name Active C SB stretch Side bilateral Resistance 6' Manual Therapy Treatment Soft Tissue Mobilization SCM Body Location R SCM Mobilization Type Myofascial Release,Sustained Pressure,Other Body Position Hooklie on incline Comments Balancing of SCM/neck R Scalenes Body Location R scalenes Mobilization Type Myofascial Release,Sustained Pressure Joint Mobilizations R 1st rib Joint R 1st Rib Direction Inferior osscilations Reps/Duration 8' Comments Treatment position: Hooklie on incline C3-C6 Joint PA glides Grade I Body Position Incline Reps/Duration 8' Self-Care/Home Management Treatment Education Other Education Discussesd benefits of intensive care unit nurse during cervical exercises. PT-OP-R Modalities Start: 05/01/21 17:08 Freq: Status: Active Protocol: Document 05/13/21 13:02 LRN (Rec: 05/13/21 17:19 LRN [id number]) Hot Pack/Cold Pack Treatment Hot Pack Location neck Treatment Duration (minutes) 10 Comments Pt semi-reclined with legs on bolster PT-OP-T Assessment and Plan Start: 05/01/21 17:08 Freq: Status: Active Protocol: Document 05/13/21 13:02 LRN (Rec: 05/13/21 13:47 LRN [id number]) Physical Therapy Assessment Goals Three Impairment Neck pain rated 3/10 resulting in decreased function and diffulty sleeping Impairment NDI is 13 (20-39% impaired), UE Quickdash is 22.72 (20-39% impaired) Short Term Goal (STG) Decrease neck pain with pt will be able to improve sleep ability. STG Duration 05/27/21 Correction Goal (LTG) Pt will demonstrate improved function per score of NDI of 9 or less or UE Quickdash score of 19 or less (indicating for both, 1-19% impaired). LTG Duration 06/22/21 Two Impairment Decreased neck mobility Short Term Goal (STG) Pt will be educated and independent with a neck stretch HEP. STG Duration 05/27/21 Chute Loader Goal (LTG) Improve neck mobility, with pt able to drive with greater ease when looking around ( turning of head). LTG Duration 06/22/21 One Impairment Pt lacks appropriate self care HEP. Short Term Goal (STG) Pt will be educated in proper posture on computer and with reading, STG Duration 05/27/21 Chute Loader Goal (LTG) Pt will be educated in a self care HEP of cervical stabilization ex's to manage her pain at a tolerable level. LTG Duration 06/22/21 Assessment Summary Assessment Pt felt better for a day after last session, but then couldn 't get comfortable with pillow . Pain in R neck moving neck rot R to L after stretching into R rot. Pain is on the switching to L rot, probably due to joint dysfunction. Physical Therapy Plan Frequency and Duration Frequency of Treatment 2x/Week Plan of Care Start Date 05/06/21 Plan of Care End Date 06/22/21 Next Visit Focus/Plan Next Note Type Treatment Note Next Visit Plan Assess response to STM of R C/ S paraspinal & UT, f/b manual tx and stretch to C/S and EStim. Review & Issue HEP of I/S neck stretches (rot/SB). Educate pt in proper posture at computer and reading, Add HEP: Neck ext AROM ex. Careful Manual therapy to improve joint mobility of neck into extension. Pt education in proper sleeping posture. Modalities (MH/IFES or MH or CP) for pain.
--- NOTE | 2021-05-15 13:55 | PT.OTN ---
Current Diagnoses Tension-type headache, unspecified, not intractable (05/15/21) Cervicalgia (05/15/21) Physical Therapy Treatment Note PT-OP-A Visit Information Start: 05/01/21 17:08 Freq: Status: Active Protocol: Document 05/15/21 13:05 SP (Rec: 05/15/21 14:28 SP [id number]) Out-Patient Physical Therapy Visit Information Visit Information Visit Type Treatment Note Visit Start Time 13:05 Visit Stop Time 13:55 Total Visit Minutes 50 Visit Number 4 Number of JUNIOR ELECTRICAL ENGINEER Visits 1 Evaluation Information Evaluation Date 05/06/21 Precautions Precautions L knee replacement PT-OP-B Current Condition Start: 05/01/21 17:08 Freq: Status: Active Protocol: Document 05/06/21 13:03 LRN (Rec: 05/06/21 13:47 LRN [id number]) Current Condition History of Current Condition Onset Date Jan 2021 Current Complaints R sided of neck pain when on computer, reading, turning head and sleeping. History of Current Condition Pt reports just before she had a lot going on and was under a lot of stress. States she holds stress in her neck region. States X-ray taken showed bones out of alignment and arthritis. Now life is more normal and had a massage recently that helped a lot. She has neck aches with sleeping and being on the computer. Turning the head is hard. Prior Treatments and Tests X-ray 03/29/21: Multilevel degenerative changes and reversal cervical curvature. Trace retrolisthesis of C3 on C4, C4 on C5 and trace retrolisthesis of C5 on C6. Severe disc space narrowing is present at C5-6, moderate C6- 7 as well as C3-4 and C4-5 Future Testing and Treatments Planned None Treatment Goals Patient/Caregiver Goals Exercises to strengthen the neck and take some stress off the bones. Get advise on what can be done for the neck and do therapy as advised. Prior Functional Status Baseline Function- ADL's Independent Baseline Function- Mobility Independent Baseline Function- Other Sleeping through the night. Some neck pain with stress. Limited to sitting at computer , because head goes forward to see computer, causing pain in the neck. Current Functional Impairments (Reported) Functional Limitations- ADL's Constant neck pain. Interrupts sleeping, wakes 1-2 /night. Able to sleep through the night with Advil. Limited in neck mobility and with driving. Limited to sitting at computer , because head goes forward to see computer, causing pain in the neck. Personal Factors Other Personal Factors That May Effect Lives alone. Therapy/Recovery Arthritis with upper neck pain . Works for [employer]. PT-OP-C Subjective Start: 05/01/21 17:08 Freq: Status: Active Protocol: Document 05/15/21 13:05 SP (Rec: 05/15/21 14:28 SP [id number]) OP-PT Subjective Patient Comments Patient Comments Pt stated was very sore the next day. Uses heating pad puts in microwave and uses tylenol. Stiff coming. PT-OP-H Neuro Start: 05/01/21 17:08 Freq: Status: Active Protocol: Document 05/06/21 13:03 LRN (Rec: 05/06/21 13:47 LRN [id number]) Sensation Evaluation Gross Sensation Gross Sensation Right UE Impaired,Left LE Impaired Sensation Description Tingling Comments Summary Comments Raynaud's syndrome. Tingling in fingertips if carrying grocery bags. Deep Tendon Reflex & Clonus Assessment Deep Tendon Reflex Bilateral Brachioradialis Deep Tendon Reflex 2+ Normal Bilateral Tricep Deep Tendon Reflex 2+ Normal Bilateral Bicep Deep Tendon Reflex 1+ Diminished PT-OP-J Posture/Palpation/Skin Start: 05/01/21 17:08 Freq: Status: Active Protocol: Document 05/06/21 13:03 LRN (Rec: 05/06/21 13:47 LRN [id number]) Posture Evaluation Position Standing Head/C-Spine Posture Neutral Position T-Spine Posture Neutral L-Spine Posture Neutral Shoulder Posture (R) Rounded,(R) Forward,(L) Elevated Scapula Posture (L) Neutral,(R) Neutral Pelvis Posture Neutral Weight Distribution Balanced Knee Posture (L) Neutral,(R) Neutral Ankle/Foot Posture (L) Neutral,(R) Neutral Palpation Assessment Location Neck Palpation Location R UT, paraspinals and suboccipital. Palpation Findings Soft Tissue Tightness,Muscle Guarding,Tenderness PT-OP-K Range of Motion Start: 05/01/21 17:08 Freq: Status: Active Protocol: Document 05/06/21 13:03 LRN (Rec: 05/06/21 13:47 LRN [id number]) Cervical Spine Range of Motion Cervical Spine Active Degrees Testing Position Sitting Flexion 55 Extension 20 Rotation Left 50 Rotation Right 52 Lateral Flexion Left 20 Lateral Flexion Right 28 ROM Limitations Soft Tissue Tightness,Bony Restriction Shoulder Goniometric Range of Motion Shoulder Right Active Comments WNL Left Active Comments WNL PT-OP-M Strength Start: 05/01/21 17:08 Freq: Status: Active Protocol: Document 05/06/21 13:03 LRN (Rec: 05/06/21 13:47 LRN [id number]) Cervical Spine Strength Cervical Spine Manual Muscle Testing Comments Generally 5/5 Shoulder Strength Shoulder Manual Muscle Testing Right Comments Generally 5/5 Left Comments Generally 5/5 PT-OP-Q Treatments Start: 05/01/21 17:08 Freq: Status: Active Protocol: Document 05/15/21 13:05 SP (Rec: 05/15/21 14:28 SP [id number]) Therapeutic Exercises Supine Exercises chin nod/ tuck Supine Exercise Name added to HEP Resistance AROM Reps/Minutes 5 sec hold x5-10 Comments cued gentle pressure, relaxed jaw- good stretch response scap retraction/ depression Supine Exercise Name added to HEP Side bilateral Equipment Used arms at side Reps/Minutes 5 sec hold x10 Comments cued gentle pressure, relaxed jaw- good stretch response C Rot stretch Supine Exercise Name Active C. Rot stretch Side bilateral Resistance AAROM Reps/Minutes 30s Comments good feedback stretch C SB stretch Supine Exercise Name Active C SB stretch Side bilateral Resistance AAROM Reps/Minutes 30s Comments good feedback stretch Sitting Exercises theracane Sitting Exercise Name CS paraspinals (MWM head nod/ turn), UT (MWM scap elevation/ depression) Side right Resistance (HEP) Equipment Used various CS levels Reps/Minutes 3 min overall Comments cued slow small range MWM head turn/ nods- good massage response UT, lev scap stretch Sitting Exercise Name added to HEP Side bilateral Reps/Minutes 30s x2 Comments cued UE anchored down, can use opp UE for gentle overpressure tolerant stre Standing Exercises self STMs Standing Exercise Name UT, interscap- (HEP) Side right Equipment Used racquetball in sock on wall Reps/Minutes 1 min Comments good feedback response Manual Therapy Treatment Soft Tissue Mobilization SCM Body Location R SCM Mobilization Type Myofascial Release,Sustained Pressure,Other Body Position Hooklie on incline Comments manual and instruction self - decrease tension. R Scalenes Body Location R scalenes Mobilization Type Myofascial Release,Strumming, Sustained Pressure Comments manual R UT Body Location R UT Mobilization Type Strumming,Sustained Pressure Intensity/Depth Moderate Body Position Hooklying Comments manual and MWM head nod/ turns Joint Mobilizations R 1st rib Joint R 1st Rib Direction Inferior osscilations Comments Hooklie Self-Care/Home Management Treatment Education Patient Education Home Exercise Program Other Education Initiated: self STMs theracane , racquetball on wall, UT/ lev scap stretch, scap and CS retraction for postural awareness. REviewed supine and side sleeping with pillow support and towel roll under neck. WIth good feedback response. PT-OP-R Modalities Start: 05/01/21 17:08 Freq: Status: Active Protocol: Document 05/13/21 13:02 LRN (Rec: 05/13/21 17:19 LRN [id number]) Hot Pack/Cold Pack Treatment Hot Pack Location neck Treatment Duration (minutes) 10 Comments Pt semi-reclined with legs on bolster PT-OP-T Assessment and Plan Start: 05/01/21 17:08 Freq: Status: Active Protocol: Document 05/15/21 13:05 SP (Rec: 05/15/21 14:28 SP [id number]) Physical Therapy Assessment Goals Three Impairment Neck pain rated 3/10 resulting in decreased function and diffulty sleeping Impairment NDI is 13 (20-39% impaired), UE Quickdash is 22.72 (20-39% impaired) Short Term Goal (STG) Decrease neck pain with pt will be able to improve sleep ability. STG Duration 05/27/21 Custodial Goal (LTG) Pt will demonstrate improved function per score of NDI of 9 or less or UE Quickdash score of 19 or less (indicating for both, 1-19% impaired). LTG Duration 06/22/21 Two Impairment Decreased neck mobility Short Term Goal (STG) Pt will be educated and independent with a neck stretch HEP. STG Duration 05/27/21 Custodial Goal (LTG) Improve neck mobility, with pt able to drive with greater ease when looking around ( turning of head). LTG Duration 06/22/21 One Impairment Pt lacks appropriate self care HEP. Short Term Goal (STG) Pt will be educated in proper posture on computer and with reading, STG Duration 05/27/21 Software Applications Designer Goal (LTG) Pt will be educated in a self care HEP of cervical stabilization ex's to manage her pain at a tolerable level. LTG Duration 06/22/21 Assessment Summary Assessment Pt good response to manual, instruction stretching and self STMs. Pt reported R neck tension alot better than when arrived. Physical Therapy Plan Frequency and Duration Frequency of Treatment 2x/Week Plan of Care Start Date 05/06/21 Plan of Care End Date 06/22/21 Therapeutic Interventions Therapeutic Interventions Home Exercise Program,Joint Mobilizations,Manual Therapy, Patient/Caregiver Education, Self-Care/Home Management,Soft Tissue Mobilization, Therapeutic Activities, Therapeutic Exercises Modalities Cold Pack/Ice Massage,Electric Stimulation,Hot Packs, Ultrasound Next Visit Focus/Plan Next Note Type Treatment Note Next Visit Plan Assess response to STM, stretching/ self STMs. Next tx : add scalene stretch, 1st rib mob. Review & Issue HEP of I/S neck stretches (rot/SB). Educate pt in proper posture at computer and reading, Add HEP: Neck ext AROM ex. Careful Manual therapy to improve joint mobility of neck into extension. Pt education in proper sleeping posture. Modalities (MH/IFES or MH or CP) for pain.
--- NOTE | 2021-05-19 09:45 | PT.OTN ---
Current Diagnoses Tension-type headache, unspecified, not intractable (05/19/21) Cervicalgia (05/19/21) Physical Therapy Treatment Note PT-OP-A Visit Information Start: 05/01/21 17:08 Freq: Status: Active Protocol: Document 05/19/21 09:04 SP (Rec: 05/19/21 09:48 SP [id number]) Out-Patient Physical Therapy Visit Information Visit Information Visit Type Treatment Note Visit Start Time 09:04 Visit Stop Time 09:45 Total Visit Minutes 41 Visit Number 5 Number of FLOAT REMOVER Visits 2 Evaluation Information Evaluation Date 05/06/21 Precautions Precautions L knee replacement PT-OP-B Current Condition Start: 05/01/21 17:08 Freq: Status: Active Protocol: Document 05/06/21 13:03 LRN (Rec: 05/06/21 13:47 LRN [id number]) Current Condition History of Current Condition Onset Date Jan 2021 Current Complaints R sided of neck pain when on computer, reading, turning head and sleeping. History of Current Condition Pt reports just before she had a lot going on and was under a lot of stress. States she holds stress in her neck region. States X-ray taken showed bones out of alignment and arthritis. Now life is more normal and had a massage recently that helped a lot. She has neck aches with sleeping and being on the computer. Turning the head is hard. Prior Treatments and Tests X-ray 03/29/21: Multilevel degenerative changes and reversal cervical curvature. Trace retrolisthesis of C3 on C4, C4 on C5 and trace retrolisthesis of C5 on C6. Severe disc space narrowing is present at C5-6, moderate C6- 7 as well as C3-4 and C4-5 Future Testing and Treatments Planned None Treatment Goals Patient/Caregiver Goals Exercises to strengthen the neck and take some stress off the bones. Get advise on what can be done for the neck and do therapy as advised. Prior Functional Status Baseline Function- ADL's Independent Baseline Function- Mobility Independent Baseline Function- Other Sleeping through the night. Some neck pain with stress. Limited to sitting at computer , because head goes forward to see computer, causing pain in the neck. Current Functional Impairments (Reported) Functional Limitations- ADL's Constant neck pain. Interrupts sleeping, wakes 1-2 /night. Able to sleep through the night with Advil. Limited in neck mobility and with driving. Limited to sitting at computer , because head goes forward to see computer, causing pain in the neck. Personal Factors Other Personal Factors That May Effect Lives alone. Therapy/Recovery Arthritis with upper neck pain . Works for [employer]. PT-OP-C Subjective Start: 05/01/21 17:08 Freq: Status: Active Protocol: Document 05/19/21 09:04 SP (Rec: 05/19/21 09:48 SP [id number]) OP-PT Subjective Patient Comments Patient Comments Pt stated tried using the pillows between B knees but between BUE hard got to hot, but feels very helpful and slept better. Ordered a theracane coming soon. Pt stated felt good after last tx . Today little stiff. Did some gardening/potting and neck started hurting with time. PT-OP-H Neuro Start: 05/01/21 17:08 Freq: Status: Active Protocol: Document 05/06/21 13:03 LRN (Rec: 05/06/21 13:47 LRN [id number]) Sensation Evaluation Gross Sensation Gross Sensation Right UE Impaired,Left LE Impaired Sensation Description Tingling Comments Summary Comments Raynaud's syndrome. Tingling in fingertips if carrying grocery bags. Deep Tendon Reflex & Clonus Assessment Deep Tendon Reflex Bilateral Brachioradialis Deep Tendon Reflex 2+ Normal Bilateral Tricep Deep Tendon Reflex 2+ Normal Bilateral Bicep Deep Tendon Reflex 1+ Diminished PT-OP-J Posture/Palpation/Skin Start: 05/01/21 17:08 Freq: Status: Active Protocol: Document 05/06/21 13:03 LRN (Rec: 05/06/21 13:47 LRN [id number]) Posture Evaluation Position Standing Head/C-Spine Posture Neutral Position T-Spine Posture Neutral L-Spine Posture Neutral Shoulder Posture (R) Rounded,(R) Forward,(L) Elevated Scapula Posture (L) Neutral,(R) Neutral Pelvis Posture Neutral Weight Distribution Balanced Knee Posture (L) Neutral,(R) Neutral Ankle/Foot Posture (L) Neutral,(R) Neutral Palpation Assessment Location Neck Palpation Location R UT, paraspinals and suboccipital. Palpation Findings Soft Tissue Tightness,Muscle Guarding,Tenderness PT-OP-K Range of Motion Start: 05/01/21 17:08 Freq: Status: Active Protocol: Document 05/06/21 13:03 LRN (Rec: 05/06/21 13:47 LRN [id number]) Cervical Spine Range of Motion Cervical Spine Active Degrees Testing Position Sitting Flexion 55 Extension 20 Rotation Left 50 Rotation Right 52 Lateral Flexion Left 20 Lateral Flexion Right 28 ROM Limitations Soft Tissue Tightness,Bony Restriction Shoulder Goniometric Range of Motion Shoulder Right Active Comments WNL Left Active Comments WNL PT-OP-M Strength Start: 05/01/21 17:08 Freq: Status: Active Protocol: Document 05/06/21 13:03 LRN (Rec: 05/06/21 13:47 LRN [id number]) Cervical Spine Strength Cervical Spine Manual Muscle Testing Comments Generally 5/5 Shoulder Strength Shoulder Manual Muscle Testing Right Comments Generally 5/5 Left Comments Generally 5/5 PT-OP-Q Treatments Start: 05/01/21 17:08 Freq: Status: Active Protocol: Document 05/19/21 09:04 SP (Rec: 05/19/21 09:48 SP [id number]) Therapeutic Exercises Supine Exercises chin nod/ tuck Supine Exercise Name reviewed HEP- added to wall posture Resistance AROM Reps/Minutes 5 sec hold x10 Comments cued gentle pressure, relaxed jaw- good stretch response scap retraction/ depression Supine Exercise Name reviewed HEP- added to wall posture Side bilateral Equipment Used arms at side Reps/Minutes 5 sec hold x10 Comments cued gentle pressure, relaxed jaw- good stretch response C Rot stretch Supine Exercise Name Active C. Rot stretch Side bilateral Resistance AAROM self w/opp UE Reps/Minutes 30s Comments good feedback stretch C SB stretch Supine Exercise Name Active C SB UT stretch Side bilateral Resistance AAROM self w/opp UE Reps/Minutes 30s Comments good feedback stretch C/R stretch into neck R rot Supine Exercise Name SB and Rotation: Lev Scap stretch Side right Resistance AAROM self w/opp UE Reps/Minutes 30s Comments good feedback stretch Sitting Exercises wall posture Sitting Exercise Name wall roll up-added to HEP Reps/Minutes hold 5s x5 Comments good feedback for self posture . scalene stretch Sitting Exercise Name added to HEP Side right Reps/Minutes 15 s x2 Comments extra time spent find position and use *hand vs strap UT, lev scap stretch Sitting Exercise Name reviewed HEP Side bilateral Reps/Minutes 30s x2 Comments cued UE anchored down, can use opp UE for gentle overpressure tolerant stre Manual Therapy Treatment Soft Tissue Mobilization SCM Body Location R SCM Mobilization Type Myofascial Release,Sustained Pressure,Other Body Position Hooklie on incline Comments manual and instruction self - decrease tension. R Scalenes Body Location R scalenes Mobilization Type Myofascial Release,Strumming, Sustained Pressure Comments manual and initiated how to stretch sitting R UT Body Location R UT and Lev Scap Mobilization Type Strumming,Sustained Pressure Intensity/Depth Moderate Body Position Hooklying Comments manual STMs and stretch Self-Care/Home Management Treatment Education Patient Education Home Exercise Program Other Education Initiated: scalene stretch and wall roll ups w/ postural alignment. Reviewed body mechanics for planting decrease neck pain and add stretching/ STMs if needed and know muscles tiring need a rest. PT-OP-R Modalities Start: 05/01/21 17:08 Freq: Status: Active Protocol: Document 05/13/21 13:02 LRN (Rec: 05/13/21 17:19 LRN [id number]) Hot Pack/Cold Pack Treatment Hot Pack Location neck Treatment Duration (minutes) 10 Comments Pt semi-reclined with legs on bolster PT-OP-T Assessment and Plan Start: 05/01/21 17:08 Freq: Status: Active Protocol: Document 05/19/21 09:04 SP (Rec: 05/19/21 09:48 SP [id number]) Physical Therapy Assessment Goals Three Impairment Neck pain rated 3/10 resulting in decreased function and diffulty sleeping Impairment NDI is 13 (20-39% impaired), UE Quickdash is 22.72 (20-39% impaired) Short Term Goal (STG) Decrease neck pain with pt will be able to improve sleep ability. STG Duration 05/27/21 Computer Video Game Designer Goal (LTG) Pt will demonstrate improved function per score of NDI of 9 or less or UE Quickdash score of 19 or less (indicating for both, 1-19% impaired). LTG Duration 06/22/21 Two Impairment Decreased neck mobility Short Term Goal (STG) Pt will be educated and independent with a neck stretch HEP. 05/19/21: added seated UT/lev scap/scalene stretch, supine: chin nod/ DNF and scap retraction, wall posture, Self STMs theracane/ ballwall. STG Duration 05/27/21 (05/19/21: progressing) Computer Video Game Designer Goal (LTG) Improve neck mobility, with pt able to drive with greater ease when looking around ( turning of head). LTG Duration 06/22/21 One Impairment Pt lacks appropriate self care HEP. Short Term Goal (STG) Pt will be educated in proper posture on computer and with reading 05/19/21: discussed posture/ alignment sleeping/ gardening. STG Duration 05/27/21 (05/19/21: progressing) Computer Video Game Designer Goal (LTG) Pt will be educated in a self care HEP of cervical stabilization ex's to manage her pain at a tolerable level. LTG Duration 06/22/21 Progress Towards Goals Progress Towards Goals Progressing Toward Goals Progress Comments Pt making gain in postural awareness sleeping, continues education carryover gardening/ potting. Next tx discuss sitting and computer use. Assessment Summary Assessment Pt responds well to manual, stretching, occasional cues for alignment form. Pt reports can turn head and less tension end of tx. Physical Therapy Plan Frequency and Duration Frequency of Treatment 2x/Week Plan of Care Start Date 05/06/21 Plan of Care End Date 06/22/21 Therapeutic Interventions Therapeutic Interventions Home Exercise Program,Joint Mobilizations,Manual Therapy, Patient/Caregiver Education, Self-Care/Home Management,Soft Tissue Mobilization, Therapeutic Activities, Therapeutic Exercises Modalities Cold Pack/Ice Massage,Electric Stimulation,Hot Packs, Ultrasound Next Visit Focus/Plan Next Note Type Treatment Note Next Visit Plan Assess response to STM, stretching/ self STMs. Next tx : recheck stretching HEP. Next tx: Educate pt in proper posture at computer and reading, POC: Careful Manual therapy to improve joint mobility of neck into extension. Modalities (MH/IFES or MH or CP) for pain.
--- NOTE | 2021-05-22 09:45 | PT.OTN ---
Current Diagnoses Tension-type headache, unspecified, not intractable (05/22/21) Cervicalgia (05/22/21) Physical Therapy Treatment Note PT-OP-A Visit Information Start: 05/01/21 17:08 Freq: Status: Active Protocol: Document 05/22/21 09:07 SP (Rec: 05/22/21 09:53 SP [id number]) Out-Patient Physical Therapy Visit Information Visit Information Visit Type Treatment Note Visit Start Time 09:04 Visit Stop Time 09:45 Total Visit Minutes 41 Visit Number 6 Number of KILN HAND Visits 3 Evaluation Information Evaluation Date 05/06/21 Precautions Precautions L knee replacement PT-OP-B Current Condition Start: 05/01/21 17:08 Freq: Status: Active Protocol: Document 05/06/21 13:03 LRN (Rec: 05/06/21 13:47 LRN [id number]) Current Condition History of Current Condition Onset Date Jan 2021 Current Complaints R sided of neck pain when on computer, reading, turning head and sleeping. History of Current Condition Pt reports just before she had a lot going on and was under a lot of stress. States she holds stress in her neck region. States X-ray taken showed bones out of alignment and arthritis. Now life is more normal and had a massage recently that helped a lot. She has neck aches with sleeping and being on the computer. Turning the head is hard. Prior Treatments and Tests X-ray 03/29/21: Multilevel degenerative changes and reversal cervical curvature. Trace retrolisthesis of C3 on C4, C4 on C5 and trace retrolisthesis of C5 on C6. Severe disc space narrowing is present at C5-6, moderate C6- 7 as well as C3-4 and C4-5 Future Testing and Treatments Planned None Treatment Goals Patient/Caregiver Goals Exercises to strengthen the neck and take some stress off the bones. Get advise on what can be done for the neck and do therapy as advised. Prior Functional Status Baseline Function- ADL's Independent Baseline Function- Mobility Independent Baseline Function- Other Sleeping through the night. Some neck pain with stress. Limited to sitting at computer , because head goes forward to see computer, causing pain in the neck. Current Functional Impairments (Reported) Functional Limitations- ADL's Constant neck pain. Interrupts sleeping, wakes 1-2 /night. Able to sleep through the night with Advil. Limited in neck mobility and with driving. Limited to sitting at computer , because head goes forward to see computer, causing pain in the neck. Personal Factors Other Personal Factors That May Effect Lives alone. Therapy/Recovery Arthritis with upper neck pain . Works for [employer]. PT-OP-C Subjective Start: 05/01/21 17:08 Freq: Status: Active Protocol: Document 05/22/21 09:07 SP (Rec: 05/22/21 09:53 SP [id number]) OP-PT Subjective Patient Comments Patient Comments Pt reports neck feels about the same, but B hands feel stiff, did some pruning and hard time closing her hands today. She stated couldnt hold a pencil this am. PT-OP-H Neuro Start: 05/01/21 17:08 Freq: Status: Active Protocol: Document 05/06/21 13:03 LRN (Rec: 05/06/21 13:47 LRN [id number]) Sensation Evaluation Gross Sensation Gross Sensation Right UE Impaired,Left LE Impaired Sensation Description Tingling Comments Summary Comments Raynaud's syndrome. Tingling in fingertips if carrying grocery bags. Deep Tendon Reflex & Clonus Assessment Deep Tendon Reflex Bilateral Brachioradialis Deep Tendon Reflex 2+ Normal Bilateral Tricep Deep Tendon Reflex 2+ Normal Bilateral Bicep Deep Tendon Reflex 1+ Diminished PT-OP-J Posture/Palpation/Skin Start: 05/01/21 17:08 Freq: Status: Active Protocol: Document 05/06/21 13:03 LRN (Rec: 05/06/21 13:47 LRN [id number]) Posture Evaluation Position Standing Head/C-Spine Posture Neutral Position T-Spine Posture Neutral L-Spine Posture Neutral Shoulder Posture (R) Rounded,(R) Forward,(L) Elevated Scapula Posture (L) Neutral,(R) Neutral Pelvis Posture Neutral Weight Distribution Balanced Knee Posture (L) Neutral,(R) Neutral Ankle/Foot Posture (L) Neutral,(R) Neutral Palpation Assessment Location Neck Palpation Location R UT, paraspinals and suboccipital. Palpation Findings Soft Tissue Tightness,Muscle Guarding,Tenderness PT-OP-K Range of Motion Start: 05/01/21 17:08 Freq: Status: Active Protocol: Document 05/06/21 13:03 LRN (Rec: 05/06/21 13:47 LRN [id number]) Cervical Spine Range of Motion Cervical Spine Active Degrees Testing Position Sitting Flexion 55 Extension 20 Rotation Left 50 Rotation Right 52 Lateral Flexion Left 20 Lateral Flexion Right 28 ROM Limitations Soft Tissue Tightness,Bony Restriction Shoulder Goniometric Range of Motion Shoulder Right Active Comments WNL Left Active Comments WNL PT-OP-M Strength Start: 05/01/21 17:08 Freq: Status: Active Protocol: Document 05/06/21 13:03 LRN (Rec: 05/06/21 13:47 LRN [id number]) Cervical Spine Strength Cervical Spine Manual Muscle Testing Comments Generally 5/5 Shoulder Strength Shoulder Manual Muscle Testing Right Comments Generally 5/5 Left Comments Generally 5/5 PT-OP-Q Treatments Start: 05/01/21 17:08 Freq: Status: Active Protocol: Document 05/22/21 09:07 SP (Rec: 05/22/21 09:53 SP [id number]) Therapeutic Exercises Supine Exercises chin nod/ tuck Supine Exercise Name reviewed HEP- added to wall posture Resistance AROM Reps/Minutes 5 sec hold x10 Comments cued gentle pressure, relaxed jaw- good stretch response scap retraction/ depression Supine Exercise Name reviewed HEP Side bilateral Equipment Used arms at side Reps/Minutes 5 sec hold x10 Comments cued gentle pressure, relaxed jaw- good stretch response C Rot stretch Supine Exercise Name Active C. RoT AROM w/ head nod Side bilateral Resistance AROM Reps/Minutes 30s Comments good feedback stretch Sidelying Exercises open book Sidelying Exercise Name added to HEP Side right Equipment Used * good pec stretch end feel pain free Reps/Minutes x5 hold Comments good response- cued head turn with hand/ scap glide ROM and TS rotation Sitting Exercises wall posture Sitting Exercise Name wall roll up-reviewed HEP Resistance back wall Equipment Used good CS neutral Reps/Minutes hold 10s x5 Comments good feedback for self posture . scalene stretch Sitting Exercise Name reviewed HEP Side right Reps/Minutes 15 s x 2-3 Comments ed for sequencing movement to get R stretch UT, lev scap stretch Sitting Exercise Name reviewed HEP Side bilateral Reps/Minutes 30s x2 Comments cued UE anchored down, can use opp UE for gentle overpressure tolerant stre Manual Therapy Treatment Soft Tissue Mobilization SCM Body Location R SCM Mobilization Type Myofascial Release,Sustained Pressure,Other Body Position Hooklie on incline Comments manual and instruction self - decrease tension. R Scalenes Body Location R scalenes Mobilization Type Myofascial Release,Strumming, Sustained Pressure Comments manual and reviewed stretch sitting R UT Body Location R UT, Lev Scap, UT, temporalis Mobilization Type Cross-Friction,Myofascial Release,Strumming,Sustained Pressure Intensity/Depth Moderate Body Position Hooklying Comments manual STMs Joint Mobilizations R 1st rib Joint R 1st Rib Direction Inferior osscilations Comments Hooklie C3-C6 Joint PA glides Grade I Body Position Incline Self-Care/Home Management Treatment Education Patient Education Body Mechanics,Home Exercise Program,Pain Management, Posture Other Education Further discussion posture gardening, sit on stool for improved alignment/posture for decrease stress on neck/ head . Verbalized understanding I have a stool too, I don't think about this just want to do what I want to do. PT-OP-R Modalities Start: 05/01/21 17:08 Freq: Status: Active Protocol: Document 05/13/21 13:02 LRN (Rec: 05/13/21 17:19 LRN [id number]) Hot Pack/Cold Pack Treatment Hot Pack Location neck Treatment Duration (minutes) 10 Comments Pt semi-reclined with legs on bolster PT-OP-T Assessment and Plan Start: 05/01/21 17:08 Freq: Status: Active Protocol: Document 05/22/21 09:07 SP (Rec: 05/22/21 09:53 SP [id number]) Physical Therapy Assessment Goals Three Impairment Neck pain rated 3/10 resulting in decreased function and diffulty sleeping Impairment NDI is 13 (20-39% impaired), UE Quickdash is 22.72 (20-39% impaired) Short Term Goal (STG) Decrease neck pain with pt will be able to improve sleep ability. 05/22/21: neck pain still wakes her up 3-4 x/night, challenging using pillows due to increase her heating up but uses fan/ open windows and light clothes. STG Duration 05/27/21 05/22/21: updated Fdc Goal (LTG) Pt will demonstrate improved function per score of NDI of 9 or less or UE Quickdash score of 19 or less (indicating for both, 1-19% impaired). LTG Duration 06/22/21 Two Impairment Decreased neck mobility Short Term Goal (STG) Pt will be educated and independent with a neck stretch HEP. 05/19/21: added seated UT/lev scap/scalene stretch, supine: chin nod/ DNF and scap retraction, wall posture, Self STMs theracane/ ballwall. 05/22/21: added open book. STG Duration 05/27/21 (05/22/21: progressing) Corporate Law Assistant Goal (LTG) Improve neck mobility, with pt able to drive with greater ease when looking around ( turning of head). LTG Duration 06/22/21 One Impairment Pt lacks appropriate self care HEP. Short Term Goal (STG) Pt will be educated in proper posture on computer and with reading 05/19/21: discussed posture/ alignment sleeping/ gardening. STG Duration 05/27/21 (05/19/21: progressing) Fdc Goal (LTG) Pt will be educated in a self care HEP of cervical stabilization ex's to manage her pain at a tolerable level. LTG Duration 06/22/21 Assessment Summary Assessment Pt good feedback response post manual, can feel side of my head stretching w/ CS ext now. Cued scalene stretch sequencing with improved form and stretch. Good response to added open book, this feels good, cues for proper form. Pt reports less tension end of tx. Physical Therapy Plan Frequency and Duration Frequency of Treatment 2x/Week Plan of Care Start Date 05/06/21 Plan of Care End Date 06/22/21 Therapeutic Interventions Therapeutic Interventions Home Exercise Program,Joint Mobilizations,Manual Therapy, Patient/Caregiver Education, Self-Care/Home Management,Soft Tissue Mobilization, Therapeutic Activities, Therapeutic Exercises Modalities Cold Pack/Ice Massage,Electric Stimulation,Hot Packs, Ultrasound Next Visit Focus/Plan Next Note Type Treatment Note Next Visit Plan Next tx: Recheck scalene stretch. Continue to review alignment posture sleeping, gardening/ pruning and at computer and reading, POC: Careful Manual therapy to improve joint mobility of neck into extension. Modalities (MH/IFES or MH or CP) for pain.
--- NOTE | 2021-05-26 13:00 | PT.OTN ---
Current Diagnoses Tension-type headache, unspecified, not intractable (05/26/21) Cervicalgia (05/26/21) Physical Therapy Treatment Note PT-OP-A Visit Information Start: 05/01/21 17:08 Freq: Status: Active Protocol: Document 05/26/21 12:17 SP (Rec: 05/26/21 13:13 SP [id number]) Out-Patient Physical Therapy Visit Information Visit Information Visit Type Treatment Note Visit Start Time 12:17 Visit Stop Time 13:00 Total Visit Minutes 43 Visit Number 7 Number of COUNTY LIBR[employer]OR Visits 4 Evaluation Information Evaluation Date 05/06/21 Precautions Precautions L knee replacement PT-OP-B Current Condition Start: 05/01/21 17:08 Freq: Status: Active Protocol: Document 05/06/21 13:03 LRN (Rec: 05/06/21 13:47 LRN [id number]) Current Condition History of Current Condition Onset Date Jan 2021 Current Complaints R sided of neck pain when on computer, reading, turning head and sleeping. History of Current Condition Pt reports just before she had a lot going on and was under a lot of stress. States she holds stress in her neck region. States X-ray taken showed bones out of alignment and arthritis. Now life is more normal and had a massage recently that helped a lot. She has neck aches with sleeping and being on the computer. Turning the head is hard. Prior Treatments and Tests X-ray 03/29/21: Multilevel degenerative changes and reversal cervical curvature. Trace retrolisthesis of C3 on C4, C4 on C5 and trace retrolisthesis of C5 on C6. Severe disc space narrowing is present at C5-6, moderate C6- 7 as well as C3-4 and C4-5 Future Testing and Treatments Planned None Treatment Goals Patient/Caregiver Goals Exercises to strengthen the neck and take some stress off the bones. Get advise on what can be done for the neck and do therapy as advised. Prior Functional Status Baseline Function- ADL's Independent Baseline Function- Mobility Independent Baseline Function- Other Sleeping through the night. Some neck pain with stress. Limited to sitting at computer , because head goes forward to see computer, causing pain in the neck. Current Functional Impairments (Reported) Functional Limitations- ADL's Constant neck pain. Interrupts sleeping, wakes 1-2 /night. Able to sleep through the night with Advil. Limited in neck mobility and with driving. Limited to sitting at computer , because head goes forward to see computer, causing pain in the neck. Personal Factors Other Personal Factors That May Effect Lives alone. Therapy/Recovery Arthritis with upper neck pain . Works for [employer]. PT-OP-C Subjective Start: 05/01/21 17:08 Freq: Status: Active Protocol: Document 05/26/21 12:17 SP (Rec: 05/26/21 13:13 SP [id number]) OP-PT Subjective Patient Comments Patient Comments Pt reports no neck/ head pain today, those stretches really do help and am more aware of my posture and find correcting myself, even when wake up at night or cold. Pt stated when initially goes out for walk, neck is stiff so walks with head down for stretching then better and able to PT-OP-H Neuro Start: 05/01/21 17:08 Freq: Status: Active Protocol: Document 05/06/21 13:03 LRN (Rec: 05/06/21 13:47 LRN [id number]) Sensation Evaluation Gross Sensation Gross Sensation Right UE Impaired,Left LE Impaired Sensation Description Tingling Comments Summary Comments Raynaud's syndrome. Tingling in fingertips if carrying grocery bags. Deep Tendon Reflex & Clonus Assessment Deep Tendon Reflex Bilateral Brachioradialis Deep Tendon Reflex 2+ Normal Bilateral Tricep Deep Tendon Reflex 2+ Normal Bilateral Bicep Deep Tendon Reflex 1+ Diminished PT-OP-J Posture/Palpation/Skin Start: 05/01/21 17:08 Freq: Status: Active Protocol: Document 05/06/21 13:03 LRN (Rec: 05/06/21 13:47 LRN [id number]) Posture Evaluation Position Standing Head/C-Spine Posture Neutral Position T-Spine Posture Neutral L-Spine Posture Neutral Shoulder Posture (R) Rounded,(R) Forward,(L) Elevated Scapula Posture (L) Neutral,(R) Neutral Pelvis Posture Neutral Weight Distribution Balanced Knee Posture (L) Neutral,(R) Neutral Ankle/Foot Posture (L) Neutral,(R) Neutral Palpation Assessment Location Neck Palpation Location R UT, paraspinals and suboccipital. Palpation Findings Soft Tissue Tightness,Muscle Guarding,Tenderness PT-OP-K Range of Motion Start: 05/01/21 17:08 Freq: Status: Active Protocol: Document 05/06/21 13:03 LRN (Rec: 03/01/22 13:47 LRN [id number]) Cervical Spine Range of Motion Cervical Spine Active Degrees Testing Position Sitting Flexion 55 Extension 20 Rotation Left 50 Rotation Right 52 Lateral Flexion Left 20 Lateral Flexion Right 28 ROM Limitations Soft Tissue Tightness,Bony Restriction Shoulder Goniometric Range of Motion Shoulder Right Active Comments WNL Left Active Comments WNL PT-OP-M Strength Start: 05/01/21 17:08 Freq: Status: Active Protocol: Document 05/06/21 13:03 LRN (Rec: 05/06/21 13:47 LRN [id number]) Cervical Spine Strength Cervical Spine Manual Muscle Testing Comments Generally 5/5 Shoulder Strength Shoulder Manual Muscle Testing Right Comments Generally 5/5 Left Comments Generally 5/5 PT-OP-Q Treatments Start: 05/01/21 17:08 Freq: Status: Active Protocol: Document 05/26/21 12:17 SP (Rec: 05/26/21 13:13 SP [id number]) Cardio Equipment Upper Body Ergometer (UBE) Duration (Minutes) 6 RPM 100 Seat Position see 10 Height 2 Other 1 min f/b alternate, 317 total cycles Therapeutic Exercises Sitting Exercises scalene stretch Sitting Exercise Name reviewed HEP- in standing Side right Reps/Minutes 15 s x 2 Comments good talk through self sequencing set up- [employer] confirmed form good R stretch UT, lev scap stretch Sitting Exercise Name reviewed HEP Side bilateral Reps/Minutes 30s x2 each Comments good talk through self sequencing set up- COUNTY [employer] DIRECTOR confirmed form good R stretch Standing Exercises resisted shld ext Standing Exercise Name added to HEP Resistance TB #2 Reps/Minutes 2x10 Comments cued scap stab, no UT recruitment resisted rows Standing Exercise Name added to HEP Resistance Tb #1> #2 Reps/Minutes 2x10 Comments cued scap stab, no UT recruitment self STMs Standing Exercise Name UT, interscap- reviewed HEP Side right Equipment Used theracane Reps/Minutes 1 min Comments good feedback response, MWM scap and posterior neck Self-Care/Home Management Treatment Education Patient Education Body Mechanics,Posture Other Education Further discussion posture sitting at computer: height table, monitor, chair (to low, challenging elevating). Good feedback response. PT-OP-R Modalities Start: 05/01/21 17:08 Freq: Status: Active Protocol: Document 05/13/21 13:02 LRN (Rec: 05/13/21 17:19 LRN [id number]) Hot Pack/Cold Pack Treatment Hot Pack Location neck Treatment Duration (minutes) 10 Comments Pt semi-reclined with legs on bolster PT-OP-T Assessment and Plan Start: 05/01/21 17:08 Freq: Status: Active Protocol: Document 05/26/21 12:17 SP (Rec: 05/26/21 13:13 SP [id number]) Physical Therapy Assessment Goals Three Impairment Neck pain rated 3/10 resulting in decreased function and diffulty sleeping Impairment NDI is 13 (20-39% impaired), UE Quickdash is 22.72 (20-39% impaired) Short Term Goal (STG) Decrease neck pain with pt will be able to improve sleep ability. 05/22/21: neck pain still wakes her up 3-4 x/night, challenging using pillows due to increase her heating up but uses fan/ open windows and light clothes. 05/26/21: stated pain still wakes her up 2-3x/night so gets up and stretches and helps her get back to sleep. STG Duration 05/27/21 (05/26/21: progressing) Mathematical Scientist Goal (LTG) Pt will demonstrate improved function per score of NDI of 9 or less or UE Quickdash score of 19 or less (indicating for both, 1-19% impaired). LTG Duration 06/22/21 Two Impairment Decreased neck mobility Short Term Goal (STG) Pt will be educated and independent with a neck stretch HEP. 05/19/21: added seated UT/lev scap/scalene stretch, supine: chin nod/ DNF and scap retraction, wall posture, Self STMs theracane/ ballwall. 05/22/21: added open book. 05/26/21: good form and self sequence, only provided feedback looks correct stretching and open book. Good self use theracane. STG Duration 05/27/21 (05/26/21: progressing) Care Home Goal (LTG) Improve neck mobility, with pt able to drive with greater ease when looking around ( turning of head). 05/26/21: progressing: pt reported able to look over shld better driving yesterday. LTG Duration 06/22/21 (05/26/21: progressing ) One Impairment Pt lacks appropriate self care HEP. Short Term Goal (STG) Pt will be educated in proper posture on computer and with reading 05/19/21: discussed posture/ alignment sleeping/ gardening. 05/26/21: progressing: STG Duration 05/27/21 (05/26/21: progressing) Care Home Goal (LTG) Pt will be educated in a self care HEP of cervical stabilization ex's to manage her pain at a tolerable level. 05/26/21: progressing: incorporate stretching, initiated resisted rows/ shld ext for strengthening. LTG Duration 06/22/21 (05/26/21: progressing ) Assessment Summary Assessment Pt responded well to initiated UBE and added resisted rows/ shld ext, good form and self corrections stretching, requested doing proper form, no cues needed. Pt understanding sitting ergonomic set up discussed recommended use of another chair to allow proper postural mechanics with no UT recruitment or hunching forward. Physical Therapy Plan Frequency and Duration Frequency of Treatment 2x/Week Plan of Care Start Date 05/06/21 Plan of Care End Date 06/22/21 Therapeutic Interventions Therapeutic Interventions Home Exercise Program,Joint Mobilizations,Manual Therapy, Patient/Caregiver Education, Self-Care/Home Management,Soft Tissue Mobilization, Therapeutic Activities, Therapeutic Exercises Modalities Cold Pack/Ice Massage,Electric Stimulation,Hot Packs, Ultrasound Next Visit Focus/Plan Next Note Type Treatment Note Next Visit Plan Next tx: Recheck scalene stretch. Continue to review alignment posture sleeping, gardening/ pruning and at computer and reading, POC: Careful Manual therapy to improve joint mobility of neck into extension. Modalities (MH/IFES or MH or CP) for pain.
--- NOTE | 2021-06-02 12:37 | PT.OTN ---
Current Diagnoses Tension-type headache, unspecified, not intractable (06/02/21) Cervicalgia (06/02/21) Physical Therapy Treatment Note PT-OP-A Visit Information Start: 05/01/21 17:08 Freq: Status: Active Protocol: Document 06/02/21 11:22 LRN (Rec: 06/02/21 12:36 LRN [id number]) Out-Patient Physical Therapy Visit Information Visit Information Visit Type Treatment Note Visit Start Time 11:22 Visit Stop Time 12:10 Total Visit Minutes 48 Visit Number 8 Evaluation Information Evaluation Date 05/06/21 Precautions Precautions L knee replacement PT-OP-B Current Condition Start: 05/01/21 17:08 Freq: Status: Active Protocol: Document 05/06/21 13:03 LRN (Rec: 05/06/21 13:47 LRN [id number]) Current Condition History of Current Condition Onset Date Jan 2021 Current Complaints R sided of neck pain when on computer, reading, turning head and sleeping. History of Current Condition Pt reports just before Thanksgi she had a lot going on and was under a lot of stress. States she holds stress in her neck region. States X-ray taken showed bones out of alignment and arthritis. Now life is more normal and had a massage recently that helped a lot. She has neck aches with sleeping and being on the computer. Turning the head is hard. Prior Treatments and Tests X-ray 03/29/21: Multilevel degenerative changes and reversal cervical curvature. Trace retrolisthesis of C3 on C4, C4 on C5 and trace retrolisthesis of C5 on C6. Severe disc space narrowing is present at C5-6, moderate C6- 7 as well as C3-4 and C4-5 Future Testing and Treatments Planned None Treatment Goals Patient/Caregiver Goals Exercises to strengthen the neck and take some stress off the bones. Get advise on what can be done for the neck and do therapy as advised. Prior Functional Status Baseline Function- ADL's Independent Baseline Function- Mobility Independent Baseline Function- Other Sleeping through the night. Some neck pain with stress. Limited to sitting at computer , because head goes forward to see computer, causing pain in the neck. Current Functional Impairments (Reported) Functional Limitations- ADL's Constant neck pain. Interrupts sleeping, wakes 1-2 /night. Able to sleep through the night with Advil. Limited in neck mobility and with driving. Limited to sitting at computer , because head goes forward to see computer, causing pain in the neck. Personal Factors Other Personal Factors That May Effect Lives alone. Therapy/Recovery Arthritis with upper neck pain . Works for [email or web address] program. PT-OP-C Subjective Start: 05/01/21 17:08 Freq: Status: Active Protocol: Document 06/02/21 11:22 LRN (Rec: 06/02/21 12:36 LRN [id number]) OP-PT Subjective Patient Comments Patient Comments Sleep disturbed. Walking and increasing a little. Can turn more with driving but the neck is still sore. PT-OP-H Neuro Start: 05/01/21 17:08 Freq: Status: Active Protocol: Document 05/06/21 13:03 LRN (Rec: 05/06/21 13:47 LRN [id number]) Sensation Evaluation Gross Sensation Gross Sensation Right UE Impaired,Left LE Impaired Sensation Description Tingling Comments Summary Comments Raynaud's syndrome. Tingling in fingertips if carrying grocery bags. Deep Tendon Reflex & Clonus Assessment Deep Tendon Reflex Bilateral Brachioradialis Deep Tendon Reflex 2+ Normal Bilateral Tricep Deep Tendon Reflex 2+ Normal Bilateral Bicep Deep Tendon Reflex 1+ Diminished PT-OP-J Posture/Palpation/Skin Start: 05/01/21 17:08 Freq: Status: Active Protocol: Document 05/06/21 13:03 LRN (Rec: 05/06/21 13:47 LRN [id number]) Posture Evaluation Position Standing Head/C-Spine Posture Neutral Position T-Spine Posture Neutral L-Spine Posture Neutral Shoulder Posture (R) Rounded,(R) Forward,(L) Elevated Scapula Posture (L) Neutral,(R) Neutral Pelvis Posture Neutral Weight Distribution Balanced Knee Posture (L) Neutral,(R) Neutral Ankle/Foot Posture (L) Neutral,(R) Neutral Palpation Assessment Location Neck Palpation Location R UT, paraspinals and suboccipital. Palpation Findings Soft Tissue Tightness,Muscle Guarding,Tenderness PT-OP-K Range of Motion Start: 05/01/21 17:08 Freq: Status: Active Protocol: Document 05/06/21 13:03 LRN (Rec: 05/06/21 13:47 LRN [id number]) Cervical Spine Range of Motion Cervical Spine Active Degrees Testing Position Sitting Flexion 55 Extension 20 Rotation Left 50 Rotation Right 52 Lateral Flexion Left 20 Lateral Flexion Right 28 ROM Limitations Soft Tissue Tightness,Bony Restriction Shoulder Goniometric Range of Motion Shoulder Right Active Comments WNL Left Active Comments WNL PT-OP-M Strength Start: 05/01/21 17:08 Freq: Status: Active Protocol: Document 05/06/21 13:03 LRN (Rec: 05/06/21 13:47 LRN [id number]) Cervical Spine Strength Cervical Spine Manual Muscle Testing Comments Generally 5/5 Shoulder Strength Shoulder Manual Muscle Testing Right Comments Generally 5/5 Left Comments Generally 5/5 PT-OP-Q Treatments Start: 05/01/21 17:08 Freq: Status: Active Protocol: Document 06/02/21 11:22 LRN (Rec: 06/02/21 12:36 LRN [id number]) Therapeutic Exercises Supine Exercises C Rot stretch Supine Exercise Name Active C. Rot AROM Side bilateral Resistance AROM Reps/Minutes 6' (3' at end of manual therapy) Comments good feedback stretch Manual Therapy Treatment Soft Tissue Mobilization SCM Body Location R SCM Mobilization Type Myofascial Release,Sustained Pressure,Other Body Position Hooklie on incline Comments manual and instruction self - decrease tension. R Scalenes Body Location R scalenes Mobilization Type Manual Lymphatic Drainage, Sustained Pressure Comments manual and reviewed stretch sitting Joint Mobilizations C3-C6 Joint PA and side glide of R to L side and to R. Body Position Incline Comments Mob per MFR Self-Care/Home Management Treatment Education Patient Education Posture Other Education Issued, discussed, reviewed sitting posture at computer with handout issued. Reviewed sleeping posture for alignment of head on shoulders and alighnment with pillow use. Educated pt in use of personal Theracane with I/S not to use on C. Spine, but showed use on ms of UT and back, for TrP, massage and cross fiber massage. PT-OP-R Modalities Start: 05/01/21 17:08 Freq: Status: Active Protocol: Document 06/02/21 11:22 LRN (Rec: 06/02/21 12:36 LRN [id number]) Hot Pack/Cold Pack Treatment Hot Pack Location Chest Treatment Duration (minutes) 5 Comments Performed with Cryotherapy Cold Pack Location R and Posterior neck Treatment Duration (minutes) 5 Comments Performed with MHP PT-OP-T Assessment and Plan Start: 05/01/21 17:08 Freq: Status: Active Protocol: Document 06/02/21 11:22 LRN (Rec: 06/02/21 12:36 LRN [id number]) Physical Therapy Assessment Goals Three Impairment Neck pain rated 3/10 resulting in decreased function and diffulty sleeping Impairment NDI is 13 (20-39% impaired), UE Quickdash is 22.72 (20-39% impaired) Short Term Goal (STG) Decrease neck pain with pt will be able to improve sleep ability. 05/22/21: neck pain still wakes her up 3-4 x/night, challenging using pillows due to increase her heating up but uses fan/ open windows and light clothes. 05/26/21: stated pain still wakes her up 2-3x/night so gets up and stretches and helps her get back to sleep. STG Duration 05/27/21 (05/26/21: progressing) Senior Living Goal (LTG) Pt will demonstrate improved function per score of NDI of 9 or less or UE Quickdash score of 19 or less (indicating for both, 1-19% impaired). LTG Duration 06/22/21 Two Impairment Decreased neck mobility Short Term Goal (STG) Pt will be educated and independent with a neck stretch HEP. 05/19/21: added seated UT/lev scap/scalene stretch, supine: chin nod/ DNF and scap retraction, wall posture, Self STMs theracane/ ballwall. 05/22/21: added open book. 05/26/21: good form and self sequence, only provided feedback looks correct stretching and open book. Good self use theracane. (06/02/21: Pt educated in proper sitting posture at computer). STG Duration 05/27/21 (06/02/21: MET GOAL) Laser Set Up Operator Goal (LTG) Improve neck mobility, with pt able to drive with greater ease when looking around ( turning of head). 05/26/21: progressing: pt reported able to look over shld better driving yesterday. LTG Duration 06/22/21 (05/26/21: progressing ) One Impairment Pt lacks appropriate self care HEP. Short Term Goal (STG) Pt will be educated in proper posture on computer and with reading 05/19/21: discussed posture/ alignment sleeping/ gardening. 05/26/21: progressin06/02/21: educated proper posture on computer. STG Duration 05/27/21 (06/02/21: progressing) Laser Set Up Operator Goal (LTG) Pt will be educated in a self care HEP of cervical stabilization ex's to manage her pain at a tolerable level. 05/26/21: progressing: incorporate stretching, initiated resisted rows/ shld ext for strengthening. LTG Duration 06/22/21 (05/26/21: progressing ) Progress Towards Goals Progress Comments Progressed self care. Assessment Summary Assessment Pt with soft tissue dysfunction of the cervical spine (tightness of paraspinals and UT), and mechanical changes of the C/S spine with reverse curvature and multi-level degenerative changes. Neck mobility limited and stiff. After review of sitting and sidelie posture, pt appeared to have a good understanding of how to improve posture at nighttime and while on computer. Pt R side of neck is very stiff and poor mobility of C2-C4. Post treatment pt showed improved neck L rot, mild increase in rot but no change in pain. Physical Therapy Plan Frequency and Duration Frequency of Treatment 2x/Week Plan of Care Start Date 05/06/21 Plan of Care End Date 06/22/21 Next Visit Focus/Plan Next Note Type Re-Evaluation Next Visit Plan Review proper posture while reading (STG 1). Recheck scalene stretch. Careful Manual therapy to improve joint mobility of neck into extension. Modalities (MH/IFES or MH or CP) for pain. Occasionally review alignment posture sleeping.
--- NOTE | 2021-06-02 17:07 | PT.OTN ---
Current Diagnoses Tension-type headache, unspecified, not intractable (06/02/21) Cervicalgia (06/02/21) Physical Therapy Treatment Note PT-OP-A Visit Information Start: 05/01/21 17:08 Freq: Status: Active Protocol: Document 06/02/21 11:22 LRN (Rec: 06/02/21 12:36 LRN [id number]) Out-Patient Physical Therapy Visit Information Visit Information Visit Type Treatment Note Visit Start Time 11:22 Visit Stop Time 12:10 Total Visit Minutes 48 Visit Number 8 Evaluation Information Evaluation Date 05/06/21 Precautions Precautions L knee replacement PT-OP-B Current Condition Start: 05/01/21 17:08 Freq: Status: Active Protocol: Document 05/06/21 13:03 LRN (Rec: 05/06/21 13:47 LRN [id number]) Current Condition History of Current Condition Onset Date Jan 2021 Current Complaints R sided of neck pain when on computer, reading, turning head and sleeping. History of Current Condition Pt reports just before Thanksgi she had a lot going on and was under a lot of stress. States she holds stress in her neck region. States X-ray taken showed bones out of alignment and arthritis. Now life is more normal and had a massage recently that helped a lot. She has neck aches with sleeping and being on the computer. Turning the head is hard. Prior Treatments and Tests X-ray 03/29/21: Multilevel degenerative changes and reversal cervical curvature. Trace retrolisthesis of C3 on C4, C4 on C5 and trace retrolisthesis of C5 on C6. Severe disc space narrowing is present at C5-6, moderate C6- 7 as well as C3-4 and C4-5 Future Testing and Treatments Planned None Treatment Goals Patient/Caregiver Goals Exercises to strengthen the neck and take some stress off the bones. Get advise on what can be done for the neck and do therapy as advised. Prior Functional Status Baseline Function- ADL's Independent Baseline Function- Mobility Independent Baseline Function- Other Sleeping through the night. Some neck pain with stress. Limited to sitting at computer , because head goes forward to see computer, causing pain in the neck. Current Functional Impairments (Reported) Functional Limitations- ADL's Constant neck pain. Interrupts sleeping, wakes 1-2 /night. Able to sleep through the night with Advil. Limited in neck mobility and with driving. Limited to sitting at computer , because head goes forward to see computer, causing pain in the neck. Personal Factors Other Personal Factors That May Effect Lives alone. Therapy/Recovery Arthritis with upper neck pain . Works for [employer] program. PT-OP-C Subjective Start: 05/01/21 17:08 Freq: Status: Active Protocol: Document 06/02/21 11:22 LRN (Rec: 06/02/21 12:36 LRN [id number]) OP-PT Subjective Patient Comments Patient Comments Sleep disturbed. Walking and increasing a little. Can turn more with driving but the neck is still sore. PT-OP-H Neuro Start: 05/01/21 17:08 Freq: Status: Active Protocol: Document 05/06/21 13:03 LRN (Rec: 05/06/21 13:47 LRN [id number]) Sensation Evaluation Gross Sensation Gross Sensation Right UE Impaired,Left LE Impaired Sensation Description Tingling Comments Summary Comments Raynaud's syndrome. Tingling in fingertips if carrying grocery bags. Deep Tendon Reflex & Clonus Assessment Deep Tendon Reflex Bilateral Brachioradialis Deep Tendon Reflex 2+ Normal Bilateral Tricep Deep Tendon Reflex 2+ Normal Bilateral Bicep Deep Tendon Reflex 1+ Diminished PT-OP-J Posture/Palpation/Skin Start: 05/01/21 17:08 Freq: Status: Active Protocol: Document 05/06/21 13:03 LRN (Rec: 05/06/21 13:47 LRN [id number]) Posture Evaluation Position Standing Head/C-Spine Posture Neutral Position T-Spine Posture Neutral L-Spine Posture Neutral Shoulder Posture (R) Rounded,(R) Forward,(L) Elevated Scapula Posture (L) Neutral,(R) Neutral Pelvis Posture Neutral Weight Distribution Balanced Knee Posture (L) Neutral,(R) Neutral Ankle/Foot Posture (L) Neutral,(R) Neutral Palpation Assessment Location Neck Palpation Location R UT, paraspinals and suboccipital. Palpation Findings Soft Tissue Tightness,Muscle Guarding,Tenderness PT-OP-K Range of Motion Start: 05/01/21 17:08 Freq: Status: Active Protocol: Document 05/06/21 13:03 LRN (Rec: 05/06/21 13:47 LRN [id number]) Cervical Spine Range of Motion Cervical Spine Active Degrees Testing Position Sitting Flexion 55 Extension 20 Rotation Left 50 Rotation Right 52 Lateral Flexion Left 20 Lateral Flexion Right 28 ROM Limitations Soft Tissue Tightness,Bony Restriction Shoulder Goniometric Range of Motion Shoulder Right Active Comments WNL Left Active Comments WNL PT-OP-M Strength Start: 05/01/21 17:08 Freq: Status: Active Protocol: Document 05/06/21 13:03 LRN (Rec: 05/06/21 13:47 LRN [id number]) Cervical Spine Strength Cervical Spine Manual Muscle Testing Comments Generally 5/5 Shoulder Strength Shoulder Manual Muscle Testing Right Comments Generally 5/5 Left Comments Generally 5/5 PT-OP-Q Treatments Start: 05/01/21 17:08 Freq: Status: Active Protocol: Document 06/02/21 11:22 LRN (Rec: 06/02/21 12:36 LRN [id number]) Therapeutic Exercises Supine Exercises C Rot stretch Supine Exercise Name Active C. Rot AROM Side bilateral Resistance AROM Reps/Minutes 6' (3' at end of manual therapy) Comments good feedback stretch Manual Therapy Treatment Soft Tissue Mobilization SCM Body Location R SCM Mobilization Type Myofascial Release,Sustained Pressure,Other Body Position Hooklie on incline Comments manual and instruction self - decrease tension. R Scalenes Body Location R scalenes Mobilization Type Manual Lymphatic Drainage, Sustained Pressure Comments manual and reviewed stretch sitting Joint Mobilizations C3-C6 Joint PA and side glide of R to L side and to R. Body Position Incline Comments Mob per MFR Self-Care/Home Management Treatment Education Patient Education Posture Other Education Issued, discussed, reviewed sitting posture at computer with handout issued. Reviewed sleeping posture for alignment of head on shoulders and alighnment with pillow use. Educated pt in use of personal Theracane with I/S not to use on C. Spine, but showed use on ms of UT and back, for TrP, massage and cross fiber massage. PT-OP-R Modalities Start: 05/01/21 17:08 Freq: Status: Active Protocol: Document 06/02/21 11:22 LRN (Rec: 06/02/21 12:36 LRN [id number]) Hot Pack/Cold Pack Treatment Hot Pack Location Chest Treatment Duration (minutes) 5 Comments Performed with Cryotherapy Cold Pack Location R and Posterior neck Treatment Duration (minutes) 5 Comments Performed with [facility] PT-OP-T Assessment and Plan Start: 05/01/21 17:08 Freq: Status: Active Protocol: Document 06/02/21 11:22 LRN (Rec: 06/02/21 12:36 LRN [id number]) Physical Therapy Assessment Goals Three Impairment Neck pain rated 3/10 resulting in decreased function and diffulty sleeping Impairment NDI is 13 (20-39% impaired), UE Quickdash is 22.72 (20-39% impaired) Short Term Goal (STG) Decrease neck pain with pt will be able to improve sleep ability. 05/22/21: neck pain still wakes her up 3-4 x/night, challenging using pillows due to increase her heating up but uses fan/ open windows and light clothes. 05/26/21: stated pain still wakes her up 2-3x/night so gets up and stretches and helps her get back to sleep. STG Duration 05/27/21 (05/26/21: progressing) Fdc Goal (LTG) Pt will demonstrate improved function per score of NDI of 9 or less or UE Quickdash score of 19 or less (indicating for both, 1-19% impaired). LTG Duration 06/22/21 Two Impairment Decreased neck mobility Short Term Goal (STG) Pt will be educated and independent with a neck stretch HEP. 05/19/21: added seated UT/lev scap/scalene stretch, supine: chin nod/ DNF and scap retraction, wall posture, Self STMs theracane/ ballwall. 05/22/21: added open book. 05/26/21: good form and self sequence, only provided feedback looks correct stretching and open book. Good self use theracane. (06/02/21: Pt educated in proper sitting posture at computer). 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 05/26/21: progressing: pt reported able to look over shld better driving yesterday. LTG Duration 06/22/21 (05/26/21: progressing ) One Impairment Pt lacks appropriate self care HEP. Short Term Goal (STG) Pt will be educated in proper posture on computer and with reading 05/19/21: discussed posture/ alignment sleeping/ gardening. 05/26/21: progressin06/02/21: educated proper posture on computer. STG Duration 05/27/21 (06/02/21: progressing) Art History Professor Goal (LTG) Pt will be educated in a self care HEP of cervical stabilization ex's to manage her pain at a tolerable level. 05/26/21: progressing: incorporate stretching, initiated resisted rows/ shld ext for strengthening. LTG Duration 06/22/21 (05/26/21: progressing ) Progress Towards Goals Progress Comments Progressed self care. Assessment Summary Assessment Pt with soft tissue dysfunction of the cervical spine (tightness of paraspinals and UT), and mechanical changes of the C/S spine with reverse curvature and multi-level degenerative changes. Neck mobility limited and stiff. After review of sitting and sidelie posture, pt appeared to have a good understanding of how to improve posture at nighttime and while on computer. Pt R side of neck is very stiff and poor mobility of C2-C4. Post treatment pt showed improved neck L rot, mild increase in rot but no change in pain. Physical Therapy Plan Frequency and Duration Frequency of Treatment 2x/Week Plan of Care Start Date 05/06/21 Plan of Care End Date 06/22/21 Next Visit Focus/Plan Next Note Type Re-Evaluation Next Visit Plan Review proper posture while reading (STG 1). Recheck scalene stretch. Careful Manual therapy to improve joint mobility of neck into extension. Modalities (MH/IFES or MH or CP) for pain. Occasionally review alignment posture sleeping.
--- NOTE | 2021-06-05 14:14 | PT.OTN ---
Current Diagnoses Tension-type headache, unspecified, not intractable (06/05/21) Cervicalgia (06/05/21) Physical Therapy Treatment Note PT-OP-A Visit Information Start: 05/01/21 17:08 Freq: Status: Active Protocol: Document 06/05/21 12:30 LRN (Rec: 06/05/21 14:14 LRN [id number]) Out-Patient Physical Therapy Visit Information Visit Information Visit Type Treatment Note Visit Start Time 13:00 Visit Stop Time 13:56 Total Visit Minutes 56 Visit Number 9 Evaluation Information Evaluation Date 05/06/21 Precautions Precautions L knee replacement PT-OP-B Current Condition Start: 05/01/21 17:08 Freq: Status: Active Protocol: Document 05/06/21 13:03 LRN (Rec: 05/06/21 13:47 LRN [id number]) Current Condition History of Current Condition Onset Date Jan 2021 Current Complaints R sided of neck pain when on computer, reading, turning head and sleeping. History of Current Condition Pt reports just before Thanksgi she had a lot going on and was under a lot of stress. States she holds stress in her neck region. States X-ray taken showed bones out of alignment and arthritis. Now life is more normal and had a massage recently that helped a lot. She has neck aches with sleeping and being on the computer. Turning the head is hard. Prior Treatments and Tests X-ray 03/29/21: Multilevel degenerative changes and reversal cervical curvature. Trace retrolisthesis of C3 on C4, C4 on C5 and trace retrolisthesis of C5 on C6. Severe disc space narrowing is present at C5-6, moderate C6- 7 as well as C3-4 and C4-5 Future Testing and Treatments Planned None Treatment Goals Patient/Caregiver Goals Exercises to strengthen the neck and take some stress off the bones. Get advise on what can be done for the neck and do therapy as advised. Prior Functional Status Baseline Function- ADL's Independent Baseline Function- Mobility Independent Baseline Function- Other Sleeping through the night. Some neck pain with stress. Limited to sitting at computer , because head goes forward to see computer, causing pain in the neck. Current Functional Impairments (Reported) Functional Limitations- ADL's Constant neck pain. Interrupts sleeping, wakes 1-2 /night. Able to sleep through the night with Advil. Limited in neck mobility and with driving. Limited to sitting at computer , because head goes forward to see computer, causing pain in the neck. Personal Factors Other Personal Factors That May Effect Lives alone. Therapy/Recovery Arthritis with upper neck pain . Works for [employer] program. PT-OP-C Subjective Start: 05/01/21 17:08 Freq: Status: Active Protocol: Document 06/05/21 12:30 LRN (Rec: 06/05/21 14:14 LRN [id number]) OP-PT Subjective Patient Comments Patient Comments States she feels pretty good today but has pain behind R ear with cervical R rot & SB. States she feels she can look around better. PT-OP-H Neuro Start: 05/01/21 17:08 Freq: Status: Active Protocol: Document 05/06/21 13:03 LRN (Rec: 05/06/21 13:47 LRN [id number]) Sensation Evaluation Gross Sensation Gross Sensation Right UE Impaired,Left LE Impaired Sensation Description Tingling Comments Summary Comments Raynaud's syndrome. Tingling in fingertips if carrying grocery bags. Deep Tendon Reflex & Clonus Assessment Deep Tendon Reflex Bilateral Brachioradialis Deep Tendon Reflex 2+ Normal Bilateral Tricep Deep Tendon Reflex 2+ Normal Bilateral Bicep Deep Tendon Reflex 1+ Diminished PT-OP-J Posture/Palpation/Skin Start: 05/01/21 17:08 Freq: Status: Active Protocol: Document 05/06/21 13:03 LRN (Rec: 05/06/21 13:47 LRN [id number]) Posture Evaluation Position Standing Head/C-Spine Posture Neutral Position T-Spine Posture Neutral L-Spine Posture Neutral Shoulder Posture (R) Rounded,(R) Forward,(L) Elevated Scapula Posture (L) Neutral,(R) Neutral Pelvis Posture Neutral Weight Distribution Balanced Knee Posture (L) Neutral,(R) Neutral Ankle/Foot Posture (L) Neutral,(R) Neutral Palpation Assessment Location Neck Palpation Location R UT, paraspinals and suboccipital. Palpation Findings Soft Tissue Tightness,Muscle Guarding,Tenderness PT-OP-K Range of Motion Start: 05/01/21 17:08 Freq: Status: Active Protocol: Document 05/06/21 13:03 LRN (Rec: 05/06/21 13:47 LRN [id number]) Cervical Spine Range of Motion Cervical Spine Active Degrees Testing Position Sitting Flexion 55 Extension 20 Rotation Left 50 Rotation Right 52 Lateral Flexion Left 20 Lateral Flexion Right 28 ROM Limitations Soft Tissue Tightness,Bony Restriction Shoulder Goniometric Range of Motion Shoulder Right Active Comments WNL Left Active Comments WNL PT-OP-M Strength Start: 05/01/21 17:08 Freq: Status: Active Protocol: Document 05/06/21 13:03 LRN (Rec: 05/06/21 13:47 LRN [id number]) Cervical Spine Strength Cervical Spine Manual Muscle Testing Comments Generally 5/5 Shoulder Strength Shoulder Manual Muscle Testing Right Comments Generally 5/5 Left Comments Generally 5/5 PT-OP-Q Treatments Start: 05/01/21 17:08 Freq: Status: Active Protocol: Document 06/05/21 12:30 LRN (Rec: 06/05/21 14:14 LRN [id number]) Cardio Equipment Recumbent Elliptical (Ambature) Duration (Minutes) 6 Resistance 4 Therapeutic Exercises Sitting Exercises C. active Ext Sitting Exercise Name Cervical Ext after STM Reps/Minutes 2' C. AROM Sitting Exercise Name C AROM stretch for Rot & SB Side bilateral Reps/Minutes 5' Manual Therapy Treatment Soft Tissue Mobilization R UT Body Location Srini UT Mobilization Type Strumming Intensity/Depth Moderate Body Position Prone Joint Mobilizations T2-T3 Joint T2-T3 Direction L Rot of T2 SP Body Position Prone C3-C6 Joint C3-C6 jts PA and side glide R C3- C6 TrP . Body Position Prone Comments Mob per MFR PT-OP-R Modalities Start: 05/01/21 17:08 Freq: Status: Active Protocol: Document 06/05/21 12:30 LRN (Rec: 06/05/21 14:14 LRN [id number]) Hot Pack/Cold Pack Treatment Hot Pack Location Neck & Back Patient Position Prone Treatment Duration (minutes) 10 Patient Tolerance Good Comments 10' neck, 5' back PT-OP-T Assessment and Plan Start: 05/01/21 17:08 Freq: Status: Active Protocol: Document 06/05/21 12:30 LRN (Rec: 06/05/21 14:14 LRN [id number]) Physical Therapy Assessment Goals Three Impairment Neck pain rated 3/10 resulting in decreased function and diffulty sleeping Impairment NDI is 13 (20-39% impaired), UE Quickdash is 22.72 (20-39% impaired) Short Term Goal (STG) Decrease neck pain with pt will be able to improve sleep ability. 05/22/21: neck pain still wakes her up 3-4 x/night, challenging using pillows due to increase her heating up but uses fan/ open windows and light clothes. 05/26/21: stated pain still wakes her up 2-3x/night so gets up and stretches and helps her get back to sleep. STG Duration 05/27/21 (05/26/21: progressing) Floor Manager Goal (LTG) Pt will demonstrate improved function per score of NDI of 9 or less or UE Quickdash score of 19 or less (indicating for both, 1-19% impaired). LTG Duration 06/22/21 Two Impairment Decreased neck mobility Short Term Goal (STG) Pt will be educated and independent with a neck stretch HEP. 05/19/21: added seated UT/lev scap/scalene stretch, supine: chin nod/ DNF and scap retraction, wall posture, Self STMs theracane/ ballwall. 05/22/21: added open book. 05/26/21: good form and self sequence, only provided feedback looks correct stretching and open book. Good self use theracane. (06/02/21: Pt educated in proper sitting posture at computer). STG Duration 05/27/21 (06/02/21: MET GOAL) Floor Manager Goal (LTG) Improve neck mobility, with pt able to drive with greater ease when looking around ( turning of head). 05/26/21: progressing: pt reported able to look over shld better driving yesterday. LTG Duration 06/22/21 (05/26/21: progressing ) One Impairment Pt lacks appropriate self care HEP. Short Term Goal (STG) Pt will be educated in proper posture on computer and with reading 05/19/21: discussed posture/ alignment sleeping/ gardening. 05/26/21: progressin06/02/21: educated proper posture on computer. STG Duration 05/27/21 (06/02/21: progressing) Floor Manager Goal (LTG) Pt will be educated in a self care HEP of cervical stabilization ex's to manage her pain at a tolerable level. 05/26/21: progressing: incorporate stretching, initiated resisted rows/ shld ext for strengthening. LTG Duration 06/22/21 (05/26/21: progressing ) Assessment Summary Assessment Pt left side of neck mechanical positioning improved after STM. Pt started with L C3-C6 Transverse Process more posterior, ended with L T5 TP posterior compared to the R. Pt able to perform neck ext without pain at the R suboccipital region after treatment. Physical Therapy Plan Frequency and Duration Frequency of Treatment 2x/Week Plan of Care Start Date 05/06/21 Plan of Care End Date 06/22/21 Next Visit Focus/Plan Next Note Type Progress Note Next Visit Plan Assess for PN. Review proper posture while reading (STG 1). Recheck scalene stretch. Careful Manual therapy to improve joint mobility of neck into extension. Modalities (MH/IFES or MH or CP) for pain. Occasionally review alignment posture sleeping.
--- NOTE | 2021-06-09 12:38 | PT.OTN ---
Current Diagnoses Tension-type headache, unspecified, not intractable (06/09/21) Cervicalgia (06/09/21) Physical Therapy Treatment Note PT-OP-A Visit Information Start: 05/01/21 17:08 Freq: Status: Active Protocol: Document 06/09/21 11:17 LRN (Rec: 06/09/21 12:37 LRN [id number]) Out-Patient Physical Therapy Visit Information Visit Information Visit Type Progress Note Visit Start Time 11:17 Visit Stop Time 12:05 Total Visit Minutes 48 Visit Number 10 Evaluation Information Evaluation Date 05/06/21 PT-OP-B Current Condition Start: 05/01/21 17:08 Freq: Status: Active Protocol: Document 05/06/21 13:03 LRN (Rec: 05/06/21 13:47 LRN [id number]) Current Condition History of Current Condition Onset Date Jan 2021 Current Complaints R sided of neck pain when on computer, reading, turning head and sleeping. History of Current Condition Pt reports just before Thanksgi she had a lot going on and was under a lot of stress. States she holds stress in her neck region. States X-ray taken showed bones out of alignment and arthritis. Now life is more normal and had a massage recently that helped a lot. She has neck aches with sleeping and being on the computer. Turning the head is hard. Prior Treatments and Tests X-ray 03/29/21: Multilevel degenerative changes and reversal cervical curvature. Trace retrolisthesis of C3 on C4, C4 on C5 and trace retrolisthesis of C5 on C6. Severe disc space narrowing is present at C5-6, moderate C6- 7 as well as C3-4 and C4-5 Future Testing and Treatments Planned None Treatment Goals Patient/Caregiver Goals Exercises to strengthen the neck and take some stress off the bones. Get advise on what can be done for the neck and do therapy as advised. Prior Functional Status Baseline Function- ADL's Independent Baseline Function- Mobility Independent Baseline Function- Other Sleeping through the night. Some neck pain with stress. Limited to sitting at computer , because head goes forward to see computer, causing pain in the neck. Current Functional Impairments (Reported) Functional Limitations- ADL's Constant neck pain. Interrupts sleeping, wakes 1-2 /night. Able to sleep through the night with Advil. Limited in neck mobility and with driving. Limited to sitting at computer , because head goes forward to see computer, causing pain in the neck. Personal Factors Other Personal Factors That May Effect Lives alone. Therapy/Recovery Arthritis with upper neck pain . 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 PT-OP-C Subjective Start: 05/01/21 17:08 Freq: Status: Active Protocol: Document 06/09/21 11:17 LRN (Rec: 06/09/21 12:37 LRN [id number]) OP-PT Subjective Patient Comments Patient Comments [place] good through Sat (3 days good). R sided neck pain rated 3-4/10 PT-OP-H Neuro Start: 05/01/21 17:08 Freq: Status: Active Protocol: Document 05/06/21 13:03 LRN (Rec: 05/06/21 13:47 LRN [id number]) Sensation Evaluation Gross Sensation Gross Sensation Right UE Impaired,Left LE Impaired Sensation Description Tingling Comments Summary Comments Raynaud's syndrome. Tingling in fingertips if carrying grocery bags. Deep Tendon Reflex & Clonus Assessment Deep Tendon Reflex Bilateral Brachioradialis Deep Tendon Reflex 2+ Normal Bilateral Tricep Deep Tendon Reflex 2+ Normal Bilateral Bicep Deep Tendon Reflex 1+ Diminished PT-OP-J Posture/Palpation/Skin Start: 05/01/21 17:08 Freq: Status: Active Protocol: Document 05/06/21 13:03 LRN (Rec: 05/06/21 13:47 LRN [id number]) Posture Evaluation Position Standing Head/C-Spine Posture Neutral Position T-Spine Posture Neutral L-Spine Posture Neutral Shoulder Posture (R) Rounded,(R) Forward,(L) Elevated Scapula Posture (L) Neutral,(R) Neutral Pelvis Posture Neutral Weight Distribution Balanced Knee Posture (L) Neutral,(R) Neutral Ankle/Foot Posture (L) Neutral,(R) Neutral Palpation Assessment Location Neck Palpation Location R UT, paraspinals and suboccipital. Palpation Findings Soft Tissue Tightness,Muscle Guarding,Tenderness PT-OP-K Range of Motion Start: 05/01/21 17:08 Freq: Status: Active Protocol: Document 06/09/21 11:17 LRN (Rec: 06/09/21 12:37 LRN [id number]) Cervical Spine Range of Motion Cervical Spine Active Degrees Testing Position Sitting Extension 30 Rotation Left 50 Rotation Right 47 PT-OP-M Strength Start: 05/01/21 17:08 Freq: Status: Active Protocol: Document 05/06/21 13:03 LRN (Rec: 05/06/21 13:47 LRN [id number]) Cervical Spine Strength Cervical Spine Manual Muscle Testing Comments Generally 5/5 Shoulder Strength Shoulder Manual Muscle Testing Right Comments Generally 5/5 Left Comments Generally 5/5 PT-OP-Q Treatments Start: 05/01/21 17:08 Freq: Status: Active Protocol: Document 06/09/21 11:17 LRN (Rec: 06/09/21 12:37 LRN [id number]) Cardio Equipment Recumbent Elliptical (MobileRQ) Duration (Minutes) 7 Resistance 4 Seat Position 5 Therapeutic Exercises Sitting Exercises C. active Ext Sitting Exercise Name Cervical Ext before STM Reps/Minutes 5' C. AROM Sitting Exercise Name C AROM stretch for Rot & SB Side bilateral Reps/Minutes 5' Manual Therapy Treatment Soft Tissue Mobilization Cervical Intertransversarii ms Body Location R intertransversarii ms of ~C3 -4, C4-5 Mobilization Type Sustained Pressure,Trigger Point Release Intensity/Depth Moderate Body Position Prone R UT Body Location Srini UT, Cervical Parapinals. Mobilization Type Strumming Intensity/Depth Moderate Body Position Prone Self-Care/Home Management Treatment Education Patient Education Posture Other Education Discussed best sitting posture for reading at nighttime with recommendations for use of pillows to raise arms holding book and possible use of book fu. PT-OP-R Modalities Start: 05/01/21 17:08 Freq: Status: Active Protocol: Document 06/09/21 11:17 LRN (Rec: 06/09/21 12:37 LRN [id number]) Hot Pack/Cold Pack Treatment Hot Pack Location Neck & Back Patient Position Prone Treatment Duration (minutes) 10 Patient Tolerance Good PT-OP-T Assessment and Plan Start: 05/01/21 17:08 Freq: Status: Active Protocol: Document 06/09/21 11:17 LRN (Rec: 06/09/21 12:37 LRN [id number]) Physical Therapy Assessment Rehab Potential Rehabilitation Potential Excellent Evaluation Complexity Number of Personal Factors/Comorbidities 1-2 Number of Body Systems Impaired 4 or More Clinical Presentation at Evaluation Evolving Impairments Impairments Activity Tolerance,Pain, Posture,ROM,Soft Tissue Mobility Goals Three Impairment Neck pain rated 3/10 resulting in decreased function and diffulty sleeping Impairment NDI is 13 (20-39% impaired), UE Quickdash is 22.72 (20-39% impaired) Short Term Goal (STG) Decrease neck pain with pt will be able to improve sleep ability. 05/22/21: neck pain still wakes her up 3-4 x/night, challenging using pillows due to increase her heating up but uses fan/ open windows and light clothes. 05/26/21 & 06/09/21: stated pain still wakes her up 2-3x/night so gets up and stretches and helps her get back to sleep. 06/09/21: NDI score is 9, UE Quickdash score is 31.81. STG Duration 05/27/21 (06/09/21: Improving in function, pain persists) Procedure Rn Goal (LTG) Pt will demonstrate improved function per score of NDI of 9 or less or UE Quickdash score of 19 or less (indicating for both, 1-19% impaired). LTG Duration 06/22/21 (06/09/21: Partially met goal) Two Impairment Decreased neck mobility Impairment Initial C. AROM in deg's: flex 55, ext 20, rot L 50, R 52, SB L 20, R 28. Short Term Goal (STG) Pt will be educated and independent with a neck stretch HEP. 05/19/21: added seated UT/lev scap/scalene stretch, supine: chin nod/ DNF and scap retraction, wall posture, Self STMs theracane/ ballwall. 05/22/21: added open book. 05/26/21: good form and self sequence, only provided feedback looks correct stretching and open book. Good self use theracane. (06/02/21: Pt educated in proper sitting posture at computer). STG Duration 05/27/21 (06/02/21: MET GOAL) Mcc Goal (LTG) Improve neck mobility, with pt able to drive with greater ease when looking around ( turning of head). 05/26/21: progressing: pt reported able to look over shld better driving yesterday. 06/09/21: C AROM: ext 30 deg's , rot 50 deg's L, rot 47 deg's R) LTG Duration 06/22/21 (05/26/21: symptomatic progressing) One Impairment Pt lacks appropriate self care HEP. Short Term Goal (STG) Pt will be educated in proper posture on computer and with reading 05/19/21: discussed posture/ alignment sleeping/ gardening. 05/26/21: progressin06/02/21: educated proper posture on computer. 06/09/21: Educ pt in proper posture for reading a book. STG Duration 05/27/21 (06/09/21: MET GOAL) Mcc Goal (LTG) Pt will be educated in a self care HEP of cervical stabilization ex's to manage her pain at a tolerable level. 05/26/21: progressing: incorporate stretching, initiated resisted rows/ shld ext for strengthening. LTG Duration 06/22/21 (05/26/21: progressing ) Assessment Summary Assessment Pt has improved in function and her neck mobility has been somewhat variable due to pain awareness. The pt would benefit from continued skilled physical therapy to improve her painfree neck mobility and improve posture of her neck and stability with daily activities of reading, driving and sleeping. Physical Therapy Plan Frequency and Duration Frequency of Treatment 2x/Week Plan of Care Start Date 06/09/21 Plan of Care End Date 08/08/21 Therapeutic Interventions Therapeutic Interventions Home Exercise Program,Manual Therapy,Neuromuscular Re- education,Patient/Caregiver Education,Self-Care/Home Management,Soft Tissue Mobilization,Taping, Therapeutic Exercises Next Visit Focus/Plan Next Note Type Treatment Note Next Visit Plan Assess response to treatment. Initiate neck ext strengthening for extension and neck stabilization. Recheck scalene stretch. Careful Manual therapy to improve joint mobility of neck into extension. Modalities (MH/IFES or MH or CP) for pain. Occasionally review alignment posture sleeping.
--- NOTE | 2021-06-09 12:39 | PT.OPPOC ---
Physical, Occupational & Speech Therapy At [facility] Current Diagnoses Tension-type headache, unspecified, not intractable (06/09/21) Cervicalgia (06/09/21) Visit Care Team Role Provider Type Latesha Fernandes PA-C Family Provider Non-Staff Specialty: Internal Medicine Address: [address] [place] [address], [id number] Email: [email or web address] Natalie Garcia MD Attending Provider Physician Primary Care Provider Referring Provider Specialty: Family Practice Address: [facility] [facility], [address], [place], [address] Email: [email or web address] Plan Of Care PT-OP-T Assessment and Plan Start: 05/01/21 17:08 Freq: Status: Active Protocol: Document 06/09/21 11:17 LRN (Rec: 06/09/21 12:37 LRN [id number]) Physical Therapy Assessment Rehab Potential Rehabilitation Potential Excellent Evaluation Complexity Number of Personal Factors/Comorbidities 1-2 Number of Body Systems Impaired 4 or More Clinical Presentation at Evaluation Evolving Impairments Impairments Activity Tolerance,Pain, Posture,ROM,Soft Tissue Mobility Goals Three Impairment Neck pain rated 3/10 resulting in decreased function and diffulty sleeping Impairment NDI is 13 (20-39% impaired), UE Quickdash is 22.72 (20-39% impaired) Short Term Goal (STG) Decrease neck pain with pt will be able to improve sleep ability. 05/22/21: neck pain still wakes her up 3-4 x/night, challenging using pillows due to increase her heating up but uses fan/ open windows and light clothes. 05/26/21 & 06/09/21: stated pain still wakes her up 2-3x/night so gets up and stretches and helps her get back to sleep. 06/09/21: NDI score is 9, UE Quickdash score is 31.81. STG Duration 05/27/21 (06/09/21: Improving in function, pain persists) Nursing Home Goal (LTG) Pt will demonstrate improved function per score of NDI of 9 or less or UE Quickdash score of 19 or less (indicating for both, 1-19% impaired). LTG Duration 06/22/21 (06/09/21: Partially met goal) Two Impairment Decreased neck mobility Impairment Initial C. AROM in deg's: flex 55, ext 20, rot L 50, R 52, SB L 20, R 28. Short Term Goal (STG) Pt will be educated and independent with a neck stretch HEP. 05/19/21: added seated UT/lev scap/scalene stretch, supine: chin nod/ DNF and scap retraction, wall posture, Self STMs theracane/ ballwall. 05/22/21: added open book. 05/26/21: good form and self sequence, only provided feedback looks correct stretching and open book. Good self use theracane. (06/02/21: Pt educated in proper sitting posture at computer). STG Duration 05/27/21 (06/02/21: MET GOAL) Nursing Home Goal (LTG) Improve neck mobility, with pt able to drive with greater ease when looking around ( turning of head). 05/26/21: progressing: pt reported able to look over shld better driving yesterday. 06/09/21: C AROM: ext 30 deg's , rot 50 deg's L, rot 47 deg's R) LTG Duration 06/22/21 (05/26/21: symptomatic progressing) One Impairment Pt lacks appropriate self care HEP. Short Term Goal (STG) Pt will be educated in proper posture on computer and with reading 05/19/21: discussed posture/ alignment sleeping/ gardening. 05/26/21: progressin06/02/21: educated proper posture on computer. 06/09/21: Educ pt in proper posture for reading a book. STG Duration 05/27/21 (06/09/21: MET GOAL) Peat Shredder Tender Goal (LTG) Pt will be educated in a self care HEP of cervical stabilization ex's to manage her pain at a tolerable level. 05/26/21: progressing: incorporate stretching, initiated resisted rows/ shld ext for strengthening. LTG Duration 06/22/21 (05/26/21: progressing ) Assessment Summary Assessment Pt has improved in function and her neck mobility has been somewhat variable due to pain awareness. The pt would benefit from continued skilled physical therapy to improve her painfree neck mobility and improve posture of her neck and stability with daily activities of reading, driving and sleeping. Physical Therapy Plan Frequency and Duration Frequency of Treatment 2x/Week Plan of Care Start Date 06/09/21 Plan of Care End Date 08/08/21 Therapeutic Interventions Therapeutic Interventions Home Exercise Program,Manual Therapy,Neuromuscular Re- education,Patient/Caregiver Education,Self-Care/Home Management,Soft Tissue Mobilization,Taping, Therapeutic Exercises Next Visit Focus/Plan Next Note Type Treatment Note Next Visit Plan Assess response to treatment. Initiate neck ext strengthening for extension and neck stabilization. Recheck scalene stretch. Careful Manual therapy to improve joint mobility of neck into extension. Modalities (MH/IFES or MH or CP) for pain. Occasionally review alignment posture sleeping. Plan of Care Dates Plan of Care Start Date 06/09/21 Plan of Care End Date 08/08/21 Electronically Signed by: Gabriella Hirsch, PT 06/09/21 1897 Please Sign and Return: I have reviewed this Plan of Care and certify that the skilled therapy services above are required to meet the patient?s needs. Physician Signature Date Printed Name and Credentials Clinical Instructor Signature Printed Name and Credentials
--- NOTE | 2021-06-09 15:06 | PT.OTN ---
Current Diagnoses Tension-type headache, unspecified, not intractable (06/09/21) Cervicalgia (06/09/21) Physical Therapy Treatment Note PT-OP-A Visit Information Start: 05/01/21 17:08 Freq: Status: Active Protocol: Document 06/09/21 11:17 LRN (Rec: 06/09/21 12:37 LRN [id number]) Out-Patient Physical Therapy Visit Information Visit Information Visit Type Progress Note Visit Start Time 11:17 Visit Stop Time 12:05 Total Visit Minutes 48 Visit Number 10 Evaluation Information Evaluation Date 05/06/21 PT-OP-B Current Condition Start: 05/01/21 17:08 Freq: Status: Active Protocol: Document 05/06/21 13:03 LRN (Rec: 05/06/21 13:47 LRN [id number]) Current Condition History of Current Condition Onset Date Jan 2021 Current Complaints R sided of neck pain when on computer, reading, turning head and sleeping. History of Current Condition Pt reports just before [place] she had a lot going on and was under a lot of stress. States she holds stress in her neck region. States X-ray taken showed bones out of alignment and arthritis. Now life is more normal and had a massage recently that helped a lot. She has neck aches with sleeping and being on the computer. Turning the head is hard. Prior Treatments and Tests X-ray 03/29/21: Multilevel degenerative changes and reversal cervical curvature. Trace retrolisthesis of C3 on C4, C4 on C5 and trace retrolisthesis of C5 on C6. Severe disc space narrowing is present at C5-6, moderate C6- 7 as well as C3-4 and C4-5 Future Testing and Treatments Planned None Treatment Goals Patient/Caregiver Goals Exercises to strengthen the neck and take some stress off the bones. Get advise on what can be done for the neck and do therapy as advised. Prior Functional Status Baseline Function- ADL's Independent Baseline Function- Mobility Independent Baseline Function- Other Sleeping through the night. Some neck pain with stress. Limited to sitting at computer , because head goes forward to see computer, causing pain in the neck. Current Functional Impairments (Reported) Functional Limitations- ADL's Constant neck pain. Interrupts sleeping, wakes 1-2 /night. Able to sleep through the night with Advil. Limited in neck mobility and with driving. Limited to sitting at computer , because head goes forward to see computer, causing pain in the neck. Personal Factors Other Personal Factors That May Effect Lives alone. Therapy/Recovery Arthritis with upper neck pain . Works for [employer] program. PT-OP-C Subjective Start: 05/01/21 17:08 Freq: Status: Active Protocol: Document 06/09/21 11:17 LRN (Rec: 06/09/21 12:37 LRN [id number]) OP-PT Subjective Patient Comments Patient Comments [place] good through Sat (3 days good). R sided neck pain rated 3-4/10 Patient Questionnaires Neck Disability Index NDI Score 9 Neck Disability Index Impairment 1 to 19% Impaired (Score 1-9) Quick Dash- Upper Extremity Quick Dash UE Score 31.81 Quick Dash UE Impairment 20 to 39% Impaired (Score 20- 39) OP-PT Pain Assessment Pain Assessment Grid Paper Pain Assessment Grid Completed Yes Location Neck Pain Location Details R cervical parapspinals and R UT Intensity 3 Scale Used Numeric (0 - 10) PT-OP-H Neuro Start: 05/01/21 17:08 Freq: Status: Active Protocol: Document 05/06/21 13:03 LRN (Rec: 05/06/21 13:47 LRN [id number]) Sensation Evaluation Gross Sensation Gross Sensation Right UE Impaired,Left LE Impaired Sensation Description Tingling Comments Summary Comments Raynaud's syndrome. Tingling in fingertips if carrying grocery bags. Deep Tendon Reflex & Clonus Assessment Deep Tendon Reflex Bilateral Brachioradialis Deep Tendon Reflex 2+ Normal Bilateral Tricep Deep Tendon Reflex 2+ Normal Bilateral Bicep Deep Tendon Reflex 1+ Diminished PT-OP-J Posture/Palpation/Skin Start: 05/01/21 17:08 Freq: Status: Active Protocol: Document 05/06/21 13:03 LRN (Rec: 05/06/21 13:47 LRN [id number]) Posture Evaluation Position Standing Head/C-Spine Posture Neutral Position T-Spine Posture Neutral L-Spine Posture Neutral Shoulder Posture (R) Rounded,(R) Forward,(L) Elevated Scapula Posture (L) Neutral,(R) Neutral Pelvis Posture Neutral Weight Distribution Balanced Knee Posture (L) Neutral,(R) Neutral Ankle/Foot Posture (L) Neutral,(R) Neutral Palpation Assessment Location Neck Palpation Location R UT, paraspinals and suboccipital. Palpation Findings Soft Tissue Tightness,Muscle Guarding,Tenderness PT-OP-K Range of Motion Start: 05/01/21 17:08 Freq: Status: Active Protocol: Document 06/09/21 11:17 LRN (Rec: 06/09/21 12:37 LRN [id number]) Cervical Spine Range of Motion Cervical Spine Active Degrees Testing Position Sitting Extension 30 Rotation Left 50 Rotation Right 47 PT-OP-M Strength Start: 05/01/21 17:08 Freq: Status: Active Protocol: Document 05/06/21 13:03 LRN (Rec: 05/06/21 13:47 LRN [id number]) Cervical Spine Strength Cervical Spine Manual Muscle Testing Comments Generally 5/5 Shoulder Strength Shoulder Manual Muscle Testing Right Comments Generally 5/5 Left Comments Generally 5/5 PT-OP-Q Treatments Start: 05/01/21 17:08 Freq: Status: Active Protocol: Document 06/09/21 11:17 LRN (Rec: 06/09/21 12:37 LRN [id number]) Cardio Equipment Recumbent Elliptical (EndoGastric Solutions) Duration (Minutes) 7 Resistance 4 Seat Position 5 Therapeutic Exercises Sitting Exercises C. active Ext Sitting Exercise Name Cervical Ext before STM Reps/Minutes 5' C. AROM Sitting Exercise Name C AROM stretch for Rot & SB Side bilateral Reps/Minutes 5' Manual Therapy Treatment Soft Tissue Mobilization Cervical Intertransversarii ms Body Location R intertransversarii ms of ~C3 -4, C4-5 Mobilization Type Sustained Pressure,Trigger Point Release Intensity/Depth Moderate Body Position Prone R UT Body Location Srini UT, Cervical Parapinals. Mobilization Type Strumming Intensity/Depth Moderate Body Position Prone Self-Care/Home Management Treatment Education Patient Education Posture Other Education Discussed best sitting posture for reading at nighttime with recommendations for use of pillows to raise arms holding book and possible use of book fu. PT-OP-R Modalities Start: 05/01/21 17:08 Freq: Status: Active Protocol: Document 06/09/21 11:17 LRN (Rec: 06/09/21 12:37 LRN [id number]) Hot Pack/Cold Pack Treatment Hot Pack Location Neck & Back Patient Position Prone Treatment Duration (minutes) 10 Patient Tolerance Good PT-OP-T Assessment and Plan Start: 05/01/21 17:08 Freq: Status: Active Protocol: Document 06/09/21 11:17 LRN (Rec: 06/09/21 12:37 LRN [id number]) Physical Therapy Assessment Rehab Potential Rehabilitation Potential Excellent Evaluation Complexity Number of Personal Factors/Comorbidities 1-2 Number of Body Systems Impaired 4 or More Clinical Presentation at Evaluation Evolving Impairments Impairments Activity Tolerance,Pain, Posture,ROM,Soft Tissue Mobility Goals Three Impairment Neck pain rated 3/10 resulting in decreased function and diffulty sleeping Impairment NDI is 13 (20-39% impaired), UE Quickdash is 22.72 (20-39% impaired) Short Term Goal (STG) Decrease neck pain with pt will be able to improve sleep ability. 05/22/21: neck pain still wakes her up 3-4 x/night, challenging using pillows due to increase her heating up but uses fan/ open windows and light clothes. 05/26/21 & 06/09/21: stated pain still wakes her up 2-3x/night so gets up and stretches and helps her get back to sleep. 06/09/21: NDI score is 9, UE Quickdash score is 31.81. STG Duration 06/27/21 (06/09/21: Improving in function, pain persists) Carpet Technician Goal (LTG) Pt will demonstrate improved function per score of NDI of 9 or less or UE Quickdash score of 19 or less (indicating for both, 1-19% impaired). (06/09/21: NDI score 9, UE Quickdash score worse at 31.81 , 20-39% impaired) LTG Duration 08/08/21 (06/09/21: Partially met goal, NDI goal met.) Two Impairment Decreased neck mobility Impairment Initial C. AROM in deg's: flex 55, ext 20, rot L 50, R 52, SB L 20, R 28. Short Term Goal (STG) Pt will be educated and independent with a neck stretch HEP. 05/19/21: added seated UT/lev scap/scalene stretch, supine: chin nod/ DNF and scap retraction, wall posture, Self STMs theracane/ ballwall. 05/22/21: added open book. 05/26/21: good form and self sequence, only provided feedback looks correct stretching and open book. Good self use theracane. (06/02/21: Pt educated in proper sitting posture at computer). STG Duration 05/27/21 (06/02/21: MET GOAL) Detention Goal (LTG) Improve neck mobility, with pt able to drive with greater ease when looking around ( turning of head). 05/26/21: progressing: pt reported able to look over shld better driving yesterday. 06/09/21: C AROM: ext 30 deg's , rot 50 deg's L, rot 47 deg's R) LTG Duration 08/08/21 (05/26/21: symptomatic progressing) One Impairment Pt lacks appropriate self care HEP. Short Term Goal (STG) Pt will be educated in proper posture on computer and with reading 05/19/21: discussed posture/ alignment sleeping/ gardening. 05/26/21: progressin06/02/21: educated proper posture on computer. 06/09/21: Educ pt in proper posture for reading a book. STG Duration 05/27/21 (06/09/21: MET GOAL) Detention Goal (LTG) Pt will be educated in a self care HEP of cervical stabilization ex's to manage her pain at a tolerable level. 05/26/21: progressing: incorporate stretching, initiated resisted rows/ shld ext for strengthening. LTG Duration 08/08/21 (05/26/21: progressing ) Assessment Summary Assessment Pt has improved in function and her neck mobility has been somewhat variable due to pain awareness. The pt would benefit from continued skilled physical therapy to improve her painfree neck mobility and improve posture of her neck and stability with daily activities of reading, driving and sleeping. Physical Therapy Plan Frequency and Duration Frequency of Treatment 2x/Week Plan of Care Start Date 06/09/21 Plan of Care End Date 08/08/21 Therapeutic Interventions Therapeutic Interventions Home Exercise Program,Manual Therapy,Neuromuscular Re- education,Patient/Caregiver Education,Self-Care/Home Management,Soft Tissue Mobilization,Taping, Therapeutic Exercises Next Visit Focus/Plan Next Note Type Treatment Note Next Visit Plan Assess response to treatment. Initiate neck ext strengthening for extension and neck stabilization. Recheck scalene stretch. Careful Manual therapy to improve joint mobility of neck into extension. Modalities (MH/IFES or MH or CP) for pain. Occasionally review alignment posture sleeping.
--- NOTE | 2021-06-09 15:07 | PT.OPPOC ---
Physical, Occupational & Speech Therapy At [facility] Current Diagnoses Tension-type headache, unspecified, not intractable (06/09/21) Cervicalgia (06/09/21) Visit Care Team Role Provider Type Latesha Fernandes PA-C Family Provider Non-Staff Specialty: Internal Medicine Address: [address] [place] [address], [id number] Email: [email or web address] Natalie Garcia MD Attending Provider Physician Primary Care Provider Referring Provider Specialty: Family Practice Address: [facility], [address], [place], [address] Email: [email or web address] Plan Of Care PT-OP-T Assessment and Plan Start: 05/01/21 17:08 Freq: Status: Active Protocol: Document 06/09/21 11:17 LRN (Rec: 06/09/21 12:37 LRN [id number]) Physical Therapy Assessment Rehab Potential Rehabilitation Potential Excellent Evaluation Complexity Number of Personal Factors/Comorbidities 1-2 Number of Body Systems Impaired 4 or More Clinical Presentation at Evaluation Evolving Impairments Impairments Activity Tolerance,Pain, Posture,ROM,Soft Tissue Mobility Goals Three Impairment Neck pain rated 3/10 resulting in decreased function and diffulty sleeping Impairment NDI is 13 (20-39% impaired), UE Quickdash is 22.72 (20-39% impaired) Short Term Goal (STG) Decrease neck pain with pt will be able to improve sleep ability. 05/22/21: neck pain still wakes her up 3-4 x/night, challenging using pillows due to increase her heating up but uses fan/ open windows and light clothes. 05/26/21 & 06/09/21: stated pain still wakes her up 2-3x/night so gets up and stretches and helps her get back to sleep. 06/09/21: NDI score is 9, UE Quickdash score is 31.81. STG Duration 06/27/21 (06/09/21: Improving in function, pain persists) Jail Goal (LTG) Pt will demonstrate improved function per score of NDI of 9 or less or UE Quickdash score of 19 or less (indicating for both, 1-19% impaired). (06/09/21: NDI score 9, UE Quickdash score worse at 31.81 , 20-39% impaired) LTG Duration 08/08/21 (06/09/21: Partially met goal, NDI goal met.) Two Impairment Decreased neck mobility Impairment Initial C. AROM in deg's: flex 55, ext 20, rot L 50, R 52, SB L 20, R 28. Short Term Goal (STG) Pt will be educated and independent with a neck stretch HEP. 05/19/21: added seated UT/lev scap/scalene stretch, supine: chin nod/ DNF and scap retraction, wall posture, Self STMs theracane/ ballwall. 05/22/21: added open book. 05/26/21: good form and self sequence, only provided feedback looks correct stretching and open book. Good self use theracane. (06/02/21: Pt educated in proper sitting posture at computer). STG Duration 05/27/21 (06/02/21: MET GOAL) Radiator Repairer Goal (LTG) Improve neck mobility, with pt able to drive with greater ease when looking around ( turning of head). 05/26/21: progressing: pt reported able to look over shld better driving yesterday. 06/09/21: C AROM: ext 30 deg's , rot 50 deg's L, rot 47 deg's R) LTG Duration 08/08/21 (05/26/21: symptomatic progressing) One Impairment Pt lacks appropriate self care HEP. Short Term Goal (STG) Pt will be educated in proper posture on computer and with reading 05/19/21: discussed posture/ alignment sleeping/ gardening. 05/26/21: progressin06/02/21: educated proper posture on computer. 06/09/21: Educ pt in proper posture for reading a book. STG Duration 05/27/21 (06/09/21: MET GOAL) Radiator Repairer Goal (LTG) Pt will be educated in a self care HEP of cervical stabilization ex's to manage her pain at a tolerable level. 05/26/21: progressing: incorporate stretching, initiated resisted rows/ shld ext for strengthening. LTG Duration 08/08/21 (05/26/21: progressing ) Assessment Summary Assessment Pt has improved in function and her neck mobility has been somewhat variable due to pain awareness. The pt would benefit from continued skilled physical therapy to improve her painfree neck mobility and improve posture of her neck and stability with daily activities of reading, driving and sleeping. Physical Therapy Plan Frequency and Duration Frequency of Treatment 2x/Week Plan of Care Start Date 06/09/21 Plan of Care End Date 08/08/21 Therapeutic Interventions Therapeutic Interventions Home Exercise Program,Manual Therapy,Neuromuscular Re- education,Patient/Caregiver Education,Self-Care/Home Management,Soft Tissue Mobilization,Taping, Therapeutic Exercises Next Visit Focus/Plan Next Note Type Treatment Note Next Visit Plan Assess response to treatment. Initiate neck ext strengthening for extension and neck stabilization. Recheck scalene stretch. Careful Manual therapy to improve joint mobility of neck into extension. Modalities (MH/IFES or MH or CP) for pain. Occasionally review alignment posture sleeping. Plan of Care Dates Plan of Care Start Date 06/09/21 Plan of Care End Date 08/08/21 Electronically Signed by: Gabriella Hirsch, PT 06/09/21 3750 Please Sign and Return: I have reviewed this Plan of Care and certify that the skilled therapy services above are required to meet the patient?s needs. Physician Signature Date Printed Name and Credentials Clinical Instructor Signature Printed Name and Credentials
--- NOTE | 2021-06-12 12:37 | PT.OTN ---
Current Diagnoses Tension-type headache, unspecified, not intractable (06/12/21) Cervicalgia (06/12/21) Physical Therapy Treatment Note PT-OP-A Visit Information Start: 05/01/21 17:08 Freq: Status: Active Protocol: Document 06/12/21 11:23 LRN (Rec: 06/12/21 12:32 LRN [id number]) Out-Patient Physical Therapy Visit Information Visit Information Visit Type Treatment Note Visit Note 1 after PN Visit Start Time 11:23 Visit Stop Time 12:13 Total Visit Minutes 50 Visit Number 11 Evaluation Information Evaluation Date 05/06/21 Precautions Precautions L knee replacement PT-OP-B Current Condition Start: 05/01/21 17:08 Freq: Status: Active Protocol: Document 05/06/21 13:03 LRN (Rec: 05/06/21 13:47 LRN [id number]) Current Condition History of Current Condition Onset Date Jan 2021 Current Complaints R sided of neck pain when on computer, reading, turning head and sleeping. History of Current Condition Pt reports just before she had a lot going on and was under a lot of stress. States she holds stress in her neck region. States X-ray taken showed bones out of alignment and arthritis. Now life is more normal and had a massage recently that helped a lot. She has neck aches with sleeping and being on the computer. Turning the head is hard. Prior Treatments and Tests X-ray 03/29/21: Multilevel degenerative changes and reversal cervical curvature. Trace retrolisthesis of C3 on C4, C4 on C5 and trace retrolisthesis of C5 on C6. Severe disc space narrowing is present at C5-6, moderate C6- 7 as well as C3-4 and C4-5 Future Testing and Treatments Planned None Treatment Goals Patient/Caregiver Goals Exercises to strengthen the neck and take some stress off the bones. Get advise on what can be done for the neck and do therapy as advised. Prior Functional Status Baseline Function- ADL's Independent Baseline Function- Mobility Independent Baseline Function- Other Sleeping through the night. Some neck pain with stress. Limited to sitting at computer , because head goes forward to see computer, causing pain in the neck. Current Functional Impairments (Reported) Functional Limitations- ADL's Constant neck pain. Interrupts sleeping, wakes 1-2 /night. Able to sleep through the night with Advil. Limited in neck mobility and with driving. Limited to sitting at computer , because head goes forward to see computer, causing pain in the neck. Personal Factors Other Personal Factors That May Effect Lives alone. Therapy/Recovery Arthritis with upper neck pain . Works for [employer] program. PT-OP-C Subjective Start: 05/01/21 17:08 Freq: Status: Active Protocol: Document 06/12/21 11:23 LRN (Rec: 06/12/21 12:32 LRN [id number]) OP-PT Subjective Patient Comments Patient Comments No change with pain, but thinks her mobility is better in the neck. Doesn't notice the neck pain as much when driving or looking. PT-OP-H Neuro Start: 05/01/21 17:08 Freq: Status: Active Protocol: Document 05/06/21 13:03 LRN (Rec: 05/06/21 13:47 LRN [id number]) Sensation Evaluation Gross Sensation Gross Sensation Right UE Impaired,Left LE Impaired Sensation Description Tingling Comments Summary Comments Raynaud's syndrome. Tingling in fingertips if carrying grocery bags. Deep Tendon Reflex & Clonus Assessment Deep Tendon Reflex Bilateral Brachioradialis Deep Tendon Reflex 2+ Normal Bilateral Tricep Deep Tendon Reflex 2+ Normal Bilateral Bicep Deep Tendon Reflex 1+ Diminished PT-OP-J Posture/Palpation/Skin Start: 05/01/21 17:08 Freq: Status: Active Protocol: Document 05/06/21 13:03 LRN (Rec: 05/06/21 13:47 LRN [id number]) Posture Evaluation Position Standing Head/C-Spine Posture Neutral Position T-Spine Posture Neutral L-Spine Posture Neutral Shoulder Posture (R) Rounded,(R) Forward,(L) Elevated Scapula Posture (L) Neutral,(R) Neutral Pelvis Posture Neutral Weight Distribution Balanced Knee Posture (L) Neutral,(R) Neutral Ankle/Foot Posture (L) Neutral,(R) Neutral Palpation Assessment Location Neck Palpation Location R UT, paraspinals and suboccipital. Palpation Findings Soft Tissue Tightness,Muscle Guarding,Tenderness PT-OP-K Range of Motion Start: 05/01/21 17:08 Freq: Status: Active Protocol: Document 06/12/21 11:23 LRN (Rec: 06/12/21 12:32 LRN [id number]) Cervical Spine Range of Motion Cervical Spine Active Degrees Testing Position Sitting Extension 27 Rotation Left 52 Rotation Right 58 Lateral Flexion Left 18 Lateral Flexion Right 20 Comments After STM: Ext: 35 deg's Rot Left: 58 deg's Rot Right: 56 deg's Lateral Flex L: 22 deg's Lateral Flex R: 20 deg's PT-OP-M Strength Start: 05/01/21 17:08 Freq: Status: Active Protocol: Document 05/06/21 13:03 LRN (Rec: 05/06/21 13:47 LRN [id number]) Cervical Spine Strength Cervical Spine Manual Muscle Testing Comments Generally 5/5 Shoulder Strength Shoulder Manual Muscle Testing Right Comments Generally 5/5 Left Comments Generally 5/5 PT-OP-Q Treatments Start: 05/01/21 17:08 Freq: Status: Active Protocol: Document 06/12/21 11:23 LRN (Rec: 06/12/21 12:32 LRN [id number]) Cardio Equipment Recumbent Elliptical (Angiodroid) Duration (Minutes) 8 Resistance 3 Seat Position 5 Therapeutic Exercises Supine Exercises C Rot stretch Supine Exercise Name Active C. Rot AROM Side bilateral Resistance AROM Reps/Minutes 2' after manual therapy Comments good feedback stretch C SB stretch Supine Exercise Name Active C SB UT stretch Side bilateral Resistance AAROM self w/opp UE Reps/Minutes 2' after manual therapy Comments good feedback stretch Sitting Exercises C. active Ext Sitting Exercise Name Cervical Ext before and after STM Reps/Minutes 2' C. AROM Sitting Exercise Name C AROM stretch for Rot & SB Side bilateral Reps/Minutes 4' Manual Therapy Treatment Soft Tissue Mobilization Cervical Intertransversarii ms Body Location R intertransversarii ms of ~C3 -4, C4-5 Mobilization Type Sustained Pressure Intensity/Depth Moderate Body Position Prone R UT Body Location Srini UT, Cervical Parapinals. Mobilization Type Strumming Intensity/Depth Moderate Body Position Prone Joint Mobilizations T2-T3 Joint T2-T3 Direction R Rot and L Sideglide of T2 SP Body Position Prone C3-C6 Joint C3-C5 jts PA. Body Position Prone Comments Mob per MFR PT-OP-R Modalities Start: 05/01/21 17:08 Freq: Status: Active Protocol: Document 06/09/21 11:17 LRN (Rec: 06/09/21 12:37 LRN [id number]) Hot Pack/Cold Pack Treatment Hot Pack Location Neck & Back Patient Position Prone Treatment Duration (minutes) 10 Patient Tolerance Good PT-OP-T Assessment and Plan Start: 05/01/21 17:08 Freq: Status: Active Protocol: Document 06/12/21 11:23 LRN (Rec: 06/12/21 12:32 LRN [id number]) Physical Therapy Assessment Goals Three Impairment Neck pain rated 3/10 resulting in decreased function and diffulty sleeping Impairment NDI is 13 (20-39% impaired), UE Quickdash is 22.72 (20-39% impaired) Short Term Goal (STG) Decrease neck pain with pt will be able to improve sleep ability. 05/22/21: neck pain still wakes her up 3-4 x/night, challenging using pillows due to increase her heating up but uses fan/ open windows and light clothes. 05/26/21 & 06/09/21: stated pain still wakes her up 2-3x/night so gets up and stretches and helps her get back to sleep. 06/09/21: NDI score is 9, UE Quickdash score is 31.81. STG Duration 06/27/21 (06/09/21: Improving in function, pain persists) Grades 7 8 Tutor Goal (LTG) Pt will demonstrate improved function per score of NDI of 9 or less or UE Quickdash score of 19 or less (indicating for both, 1-19% impaired). (06/09/21: NDI score 9, UE Quickdash score worse at 31.81 , 20-39% impaired) LTG Duration 08/08/21 (06/09/21: Partially met goal, NDI goal met.) Two Impairment Decreased neck mobility Impairment Initial C. AROM in deg's: flex 55, ext 20, rot L 50, R 52, SB L 20, R 28. Short Term Goal (STG) Pt will be educated and independent with a neck stretch HEP. 05/19/21: added seated UT/lev scap/scalene stretch, supine: chin nod/ DNF and scap retraction, wall posture, Self STMs theracane/ ballwall. 05/22/21: added open book. 05/26/21: good form and self sequence, only provided feedback looks correct stretching and open book. Good self use theracane. (06/02/21: Pt educated in proper sitting posture at computer). STG Duration 05/27/21 (06/02/21: MET GOAL) Grades 7 8 Tutor Goal (LTG) Improve neck mobility, with pt able to drive with greater ease when looking around ( turning of head). 05/26/21: progressing: pt reported able to look over shld better driving yesterday. 06/09/21: C AROM: ext 30 deg's , rot 50 deg's L, rot 47 deg's R) (06/12/21: C. AROM Before treatment: Ext: 27 deg's, Rot L: 52 deg's, Rot R: 58 deg's; SB L: 18 deg's, SB R: 20 deg 's.; After treatment: Ext: 35 deg's, Rot L: 58 deg's, Rot R : 56 deg's; SB L: 22 deg's, SB R: 20 deg's). LTG Duration 08/08/21 (06/12/21: improving) One Impairment Pt lacks appropriate self care HEP. Short Term Goal (STG) Pt will be educated in proper posture on computer and with reading 05/19/21: discussed posture/ alignment sleeping/ gardening. 05/26/21: progressin06/02/21: educated proper posture on computer. 06/09/21: Educ pt in proper posture for reading a book. STG Duration 05/27/21 (06/09/21: MET GOAL) Grades 7 8 Tutor Goal (LTG) Pt will be educated in a self care HEP of cervical stabilization ex's to manage her pain at a tolerable level. 05/26/21: progressing: incorporate stretching, initiated resisted rows/ shld ext for strengthening. LTG Duration 08/08/21 (05/26/21: progressing ) Progress Towards Goals Progress Comments C. AROM improving, see LTG above. Assessment Summary Assessment + response to treatment with improved ease of mobility of the head/neck with driving. Pt shows improved C. mobility with rotation and SB. Normalized tone at R intertransversarii ms of ~C3-4 , C4-5. Physical Therapy Plan Frequency and Duration Frequency of Treatment 2x/Week Plan of Care Start Date 06/09/21 Plan of Care End Date 08/08/21 Next Visit Focus/Plan Next Note Type Treatment Note Next Visit Plan Assess response to treatment. Initiate neck ext strengthening for extension and neck stabilization. Recheck scalene stretch. Careful Manual therapy to improve joint mobility of neck into extension. Modalities (MH/IFES or MH or CP) for pain. Occasionally review alignment posture sleeping.
--- NOTE | 2021-06-16 17:22 | PT.OTN ---
Current Diagnoses Tension-type headache, unspecified, not intractable (06/16/21) Cervicalgia (06/16/21) Physical Therapy Treatment Note PT-OP-A Visit Information Start: 05/01/21 17:08 Freq: Status: Active Protocol: Document 06/16/21 11:23 LRN (Rec: 06/16/21 12:18 LRN [id number]) Out-Patient Physical Therapy Visit Information Visit Information Visit Type Treatment Note Visit Start Time 11:23 Visit Stop Time 12:14 Total Visit Minutes 51 Visit Number 12 Evaluation Information Evaluation Date 05/06/21 Precautions Precautions L knee replacement PT-OP-B Current Condition Start: 05/01/21 17:08 Freq: Status: Active Protocol: Document 05/06/21 13:03 LRN (Rec: 05/06/21 13:47 LRN [id number]) Current Condition History of Current Condition Onset Date Jan 2021 Current Complaints R sided of neck pain when on computer, reading, turning head and sleeping. History of Current Condition Pt reports just before [place] she had a lot going on and was under a lot of stress. States she holds stress in her neck region. States X-ray taken showed bones out of alignment and arthritis. Now life is more normal and had a massage recently that helped a lot. She has neck aches with sleeping and being on the computer. Turning the head is hard. Prior Treatments and Tests X-ray 03/29/21: Multilevel degenerative changes and reversal cervical curvature. Trace retrolisthesis of C3 on C4, C4 on C5 and trace retrolisthesis of C5 on C6. Severe disc space narrowing is present at C5-6, moderate C6- 7 as well as C3-4 and C4-5 Future Testing and Treatments Planned None Treatment Goals Patient/Caregiver Goals Exercises to strengthen the neck and take some stress off the bones. Get advise on what can be done for the neck and do therapy as advised. Prior Functional Status Baseline Function- ADL's Independent Baseline Function- Mobility Independent Baseline Function- Other Sleeping through the night. Some neck pain with stress. Limited to sitting at computer , because head goes forward to see computer, causing pain in the neck. Current Functional Impairments (Reported) Functional Limitations- ADL's Constant neck pain. Interrupts sleeping, wakes 1-2 /night. Able to sleep through the night with Advil. Limited in neck mobility and with driving. Limited to sitting at computer , because head goes forward to see computer, causing pain in the neck. Personal Factors Other Personal Factors That May Effect Lives alone. Therapy/Recovery Arthritis with upper neck pain . Works for [employer] program. PT-OP-C Subjective Start: 05/01/21 17:08 Freq: Status: Active Protocol: Document 06/16/21 11:23 LRN (Rec: 06/16/21 12:18 LRN [id number]) OP-PT Subjective Patient Comments Patient Comments Little discomfort on R supoccipital region, and muscles of shoulder feels pretty good. PT-OP-H Neuro Start: 05/01/21 17:08 Freq: Status: Active Protocol: Document 05/06/21 13:03 LRN (Rec: 05/06/21 13:47 LRN [id number]) Sensation Evaluation Gross Sensation Gross Sensation Right UE Impaired,Left LE Impaired Sensation Description Tingling Comments Summary Comments Raynaud's syndrome. Tingling in fingertips if carrying grocery bags. Deep Tendon Reflex & Clonus Assessment Deep Tendon Reflex Bilateral Brachioradialis Deep Tendon Reflex 2+ Normal Bilateral Tricep Deep Tendon Reflex 2+ Normal Bilateral Bicep Deep Tendon Reflex 1+ Diminished PT-OP-J Posture/Palpation/Skin Start: 05/01/21 17:08 Freq: Status: Active Protocol: Document 05/06/21 13:03 LRN (Rec: 05/06/21 13:47 LRN [id number]) Posture Evaluation Position Standing Head/C-Spine Posture Neutral Position T-Spine Posture Neutral L-Spine Posture Neutral Shoulder Posture (R) Rounded,(R) Forward,(L) Elevated Scapula Posture (L) Neutral,(R) Neutral Pelvis Posture Neutral Weight Distribution Balanced Knee Posture (L) Neutral,(R) Neutral Ankle/Foot Posture (L) Neutral,(R) Neutral Palpation Assessment Location Neck Palpation Location R UT, paraspinals and suboccipital. Palpation Findings Soft Tissue Tightness,Muscle Guarding,Tenderness PT-OP-K Range of Motion Start: 05/01/21 17:08 Freq: Status: Active Protocol: Document 06/16/21 11:23 LRN (Rec: 06/16/21 12:18 LRN [id number]) Cervical Spine Range of Motion Cervical Spine Active Degrees Testing Position Sitting Extension 20 Rotation Left 57 Rotation Right 42 Lateral Flexion Left 13 Lateral Flexion Right 18 Comments After STM: Ext: 30 deg's Rot Left: 50 deg's Rot Right: 42 deg's Lateral Flex L: 18 deg's Lateral Flex R: 20 deg's After STM/MH: Ext: 35 deg's Rot Left: 53 deg's Rot Right: 57 deg's PT-OP-M Strength Start: 05/01/21 17:08 Freq: Status: Active Protocol: Document 05/06/21 13:03 LRN (Rec: 05/06/21 13:47 LRN [id number]) Cervical Spine Strength Cervical Spine Manual Muscle Testing Comments Generally 5/5 Shoulder Strength Shoulder Manual Muscle Testing Right Comments Generally 5/5 Left Comments Generally 5/5 PT-OP-Q Treatments Start: 05/01/21 17:08 Freq: Status: Active Protocol: Document 06/16/21 11:23 LRN (Rec: 06/16/21 12:18 LRN [id number]) Therapeutic Exercises Supine Exercises C Rot stretch Supine Exercise Name Active C. Rot AROM Side bilateral Resistance AROM Reps/Minutes 2' after manual therapy Comments good feedback stretch C SB stretch Supine Exercise Name Active C SB UT stretch Side bilateral Resistance AAROM self w/opp UE Reps/Minutes 2' after manual therapy Comments good feedback stretch Manual Therapy Treatment Soft Tissue Mobilization L UT Body Location L UT Mobilization Type Sustained Pressure Body Position Supine Comments Manual stretch Joint Mobilizations O-A Joint O-A Direction Rotation Grade I Body Position Supine C3-C6 Joint C3-C6, extension Grade II Body Position Supine PT-OP-R Modalities Start: 05/01/21 17:08 Freq: Status: Active Protocol: Document 06/16/21 11:23 LRN (Rec: 06/16/21 17:22 LRN [id number]) Hot Pack/Cold Pack Treatment Hot Pack Location Neck & Back Treatment Duration (minutes) 10 Patient Tolerance Good Comments Pt in semi-reclined position with bolster under knees. PT-OP-T Assessment and Plan Start: 05/01/21 17:08 Freq: Status: Active Protocol: Document 06/16/21 11:23 LRN (Rec: 06/16/21 12:18 LRN [id number]) Physical Therapy Assessment Goals Three Impairment Neck pain rated 3/10 resulting in decreased function and diffulty sleeping Impairment NDI is 13 (20-39% impaired), UE Quickdash is 22.72 (20-39% impaired) Short Term Goal (STG) Decrease neck pain with pt will be able to improve sleep ability. 05/22/21: neck pain still wakes her up 3-4 x/night, challenging using pillows due to increase her heating up but uses fan/ open windows and light clothes. 05/26/21 & 06/09/21: stated pain still wakes her up 2-3x/night so gets up and stretches and helps her get back to sleep. 06/09/21: NDI score is 9, UE Quickdash score is 31.81. STG Duration 06/27/21 (06/09/21: Improving in function, pain persists) Staff Air Tactical Officer Goal (LTG) Pt will demonstrate improved function per score of NDI of 9 or less or UE Quickdash score of 19 or less (indicating for both, 1-19% impaired). (06/09/21: NDI score 9, UE Quickdash score worse at 31.81 , 20-39% impaired) LTG Duration 08/08/21 (06/09/21: Partially met goal, NDI goal met.) Two Impairment Decreased neck mobility Impairment Initial C. AROM in deg's: flex 55, ext 20, rot L 50, R 52, SB L 20, R 28. Short Term Goal (STG) Pt will be educated and independent with a neck stretch HEP. 05/19/21: added seated UT/lev scap/scalene stretch, supine: chin nod/ DNF and scap retraction, wall posture, Self STMs theracane/ ballwall. 05/22/21: added open book. 05/26/21: good form and self sequence, only provided feedback looks correct stretching and open book. Good self use theracane. (06/02/21: Pt educated in proper sitting posture at computer). STG Duration 05/27/21 (06/02/21: MET GOAL) Fpc Goal (LTG) Improve neck mobility, with pt able to drive with greater ease when looking around ( turning of head). 05/26/21: progressing: pt reported able to look over shld better driving yesterday. 06/09/21: C AROM: ext 30 deg's , rot 50 deg's L, rot 47 deg's R) (06/12/21: C. AROM Before treatment: Ext: 27 deg's, Rot L: 52 deg's, Rot R: 58 deg's; SB L: 18 deg's, SB R: 20 deg 's.; After treatment: Ext: 35 deg's, Rot L: 58 deg's, Rot R : 56 deg's; SB L: 22 deg's, SB R: 20 deg's). LTG Duration 08/08/21 (06/12/21: improving) One Impairment Pt lacks appropriate self care HEP. Short Term Goal (STG) Pt will be educated in proper posture on computer and with reading 05/19/21: discussed posture/ alignment sleeping/ gardening. 05/26/21: progressin06/02/21: educated proper posture on computer. 06/09/21: Educ pt in proper posture for reading a book. STG Duration 05/27/21 (06/09/21: MET GOAL) Fpc Goal (LTG) Pt will be educated in a self care HEP of cervical stabilization ex's to manage her pain at a tolerable level. 05/26/21: progressing: incorporate stretching, initiated resisted rows/ shld ext for strengthening. LTG Duration 08/08/21 (05/26/21: progressing ) Assessment Summary Assessment Pt demonstrated much improved active R cervical rot after treatment, with no complaints of pain. Pt also demonstrated improve cervical extension. Mild tightness was present in the cervical ms on the right. Physical Therapy Plan Frequency and Duration Frequency of Treatment 2x/Week Plan of Care Start Date 06/09/21 Plan of Care End Date 08/08/21 Next Visit Focus/Plan Next Note Type Treatment Note Next Visit Plan Initiate neck ext strengthening for extension and neck stabilization. Recheck scalene stretch. Careful Manual therapy to improve joint mobility of neck into extension. Modalities (MH/IFES or MH or CP) for pain. Occasionally review alignment posture sleeping.
--- NOTE | 2021-06-19 12:28 | PT.OTN ---
Current Diagnoses Tension-type headache, unspecified, not intractable (06/19/21) Cervicalgia (06/19/21) Physical Therapy Treatment Note PT-OP-A Visit Information Start: 05/01/21 17:08 Freq: Status: Active Protocol: Document 06/19/21 11:18 LRN (Rec: 06/19/21 12:26 LRN [id number]) Out-Patient Physical Therapy Visit Information Visit Information Visit Type Treatment Note Visit Start Time 11:18 Visit Stop Time 12:15 Total Visit Minutes 55 Visit Number 13 Evaluation Information Evaluation Date 05/06/21 Precautions Precautions L knee replacement PT-OP-B Current Condition Start: 05/01/21 17:08 Freq: Status: Active Protocol: Document 05/06/21 13:03 LRN (Rec: 05/06/21 13:47 LRN [id number]) Current Condition History of Current Condition Onset Date Jan 2021 Current Complaints R sided of neck pain when on computer, reading, turning head and sleeping. History of Current Condition Pt reports just before Thanksgi she had a lot going on and was under a lot of stress. States she holds stress in her neck region. States X-ray taken showed bones out of alignment and arthritis. Now life is more normal and had a massage recently that helped a lot. She has neck aches with sleeping and being on the computer. Turning the head is hard. Prior Treatments and Tests X-ray 03/29/21: Multilevel degenerative changes and reversal cervical curvature. Trace retrolisthesis of C3 on C4, C4 on C5 and trace retrolisthesis of C5 on C6. Severe disc space narrowing is present at C5-6, moderate C6- 7 as well as C3-4 and C4-5 Future Testing and Treatments Planned None Treatment Goals Patient/Caregiver Goals Exercises to strengthen the neck and take some stress off the bones. Get advise on what can be done for the neck and do therapy as advised. Prior Functional Status Baseline Function- ADL's Independent Baseline Function- Mobility Independent Baseline Function- Other Sleeping through the night. Some neck pain with stress. Limited to sitting at computer , because head goes forward to see computer, causing pain in the neck. Current Functional Impairments (Reported) Functional Limitations- ADL's Constant neck pain. Interrupts sleeping, wakes 1-2 /night. Able to sleep through the night with Advil. Limited in neck mobility and with driving. Limited to sitting at computer , because head goes forward to see computer, causing pain in the neck. Personal Factors Other Personal Factors That May Effect Lives alone. Therapy/Recovery Arthritis with upper neck pain . Works for [employer]. PT-OP-C Subjective Start: 05/01/21 17:08 Freq: Status: Active Protocol: Document 06/19/21 11:18 LRN (Rec: 06/19/21 12:26 LRN [id number]) OP-PT Subjective Patient Comments Patient Comments States she is stiff but notices she can look around more easily driving. States she felt good for 2 days after last treatment, but woke today with stiff neck. PT-OP-H Neuro Start: 05/01/21 17:08 Freq: Status: Active Protocol: Document 05/06/21 13:03 LRN (Rec: 05/06/21 13:47 LRN [id number]) Sensation Evaluation Gross Sensation Gross Sensation Right UE Impaired,Left LE Impaired Sensation Description Tingling Comments Summary Comments Raynaud's syndrome. Tingling in fingertips if carrying grocery bags. Deep Tendon Reflex & Clonus Assessment Deep Tendon Reflex Bilateral Brachioradialis Deep Tendon Reflex 2+ Normal Bilateral Tricep Deep Tendon Reflex 2+ Normal Bilateral Bicep Deep Tendon Reflex 1+ Diminished PT-OP-J Posture/Palpation/Skin Start: 05/01/21 17:08 Freq: Status: Active Protocol: Document 05/06/21 13:03 LRN (Rec: 05/06/21 13:47 LRN [id number]) Posture Evaluation Position Standing Head/C-Spine Posture Neutral Position T-Spine Posture Neutral L-Spine Posture Neutral Shoulder Posture (R) Rounded,(R) Forward,(L) Elevated Scapula Posture (L) Neutral,(R) Neutral Pelvis Posture Neutral Weight Distribution Balanced Knee Posture (L) Neutral,(R) Neutral Ankle/Foot Posture (L) Neutral,(R) Neutral Palpation Assessment Location Neck Palpation Location R UT, paraspinals and suboccipital. Palpation Findings Soft Tissue Tightness,Muscle Guarding,Tenderness PT-OP-K Range of Motion Start: 05/01/21 17:08 Freq: Status: Active Protocol: Document 06/19/21 11:18 LRN (Rec: 06/19/21 12:26 LRN [id number]) Cervical Spine Range of Motion Cervical Spine Active Degrees Testing Position Sitting Extension 28 Rotation Left 53 Rotation Right 51 Lateral Flexion Left 23 Lateral Flexion Right 30 Comments After STM/MH: Ext: 30 deg's Rot Left: 55 deg's Rot Right: 55 deg's Lateral Flex L: 20 deg's Lateral Flex R: 25 deg's PT-OP-M Strength Start: 05/01/21 17:08 Freq: Status: Active Protocol: Document 05/06/21 13:03 LRN (Rec: 05/06/21 13:47 LRN [id number]) Cervical Spine Strength Cervical Spine Manual Muscle Testing Comments Generally 5/5 Shoulder Strength Shoulder Manual Muscle Testing Right Comments Generally 5/5 Left Comments Generally 5/5 PT-OP-Q Treatments Start: 05/01/21 17:08 Freq: Status: Active Protocol: Document 06/19/21 11:18 LRN (Rec: 06/19/21 12:26 LRN [id number]) Therapeutic Exercises Sitting Exercises C ext strengthening Sitting Exercise Name C. Ext Equipment Used Lev 1 TB Reps/Minutes 3' Comments Much phy & v cuing for resistance being hardly noticeable. C. active Ext Sitting Exercise Name Cervical Ext before and after STM Reps/Minutes 2' C. AROM Sitting Exercise Name C AROM stretch for Rot & SB Side bilateral Reps/Minutes 4' Manual Therapy Treatment Joint Mobilizations O-A Joint O-A Direction Rotation Grade I Body Position Supine Comments On MH to back T2-T3 Joint T2-T3 Direction R Rot and PA glides w/ext Body Position Supine Comments On MH to back R 1st rib Joint R 1st Rib Direction Inferior osscilations Body Position Supine Comments On MH to back C3-C6 Joint C3-C6, extension & rot stretch Grade II Body Position Supine Comments On MH to back Self-Care/Home Management Treatment Education Patient Education Home Exercise Program Activities Self-Care/Home Management Activities Issued & I/S pt in HEP of C. ext strengthengin with TBand. Pt issued Lev 1 TBand. Pt forgot her HEP handout PT-OP-R Modalities Start: 05/01/21 17:08 Freq: Status: Active Protocol: Document 06/16/21 11:23 LRN (Rec: 06/16/21 17:22 LRN [id number]) Hot Pack/Cold Pack Treatment Hot Pack Location Neck & Back Treatment Duration (minutes) 10 Patient Tolerance Good Comments Pt in semi-reclined position with bolster under knees. PT-OP-T Assessment and Plan Start: 05/01/21 17:08 Freq: Status: Active Protocol: Document 06/19/21 11:18 LRN (Rec: 06/19/21 12:26 LRN [id number]) Physical Therapy Assessment Goals Three Impairment Neck pain rated 3/10 resulting in decreased function and diffulty sleeping Impairment NDI is 13 (20-39% impaired), UE Quickdash is 22.72 (20-39% impaired) Short Term Goal (STG) Decrease neck pain with pt will be able to improve sleep ability. 05/22/21: neck pain still wakes her up 3-4 x/night, challenging using pillows due to increase her heating up but uses fan/ open windows and light clothes. 05/26/21 & 06/09/21: stated pain still wakes her up 2-3x/night so gets up and stretches and helps her get back to sleep. 06/09/21: NDI score is 9, UE Quickdash score is 31.81. STG Duration 06/27/21 (06/09/21: Improving in function, pain persists) Custodial Goal (LTG) Pt will demonstrate improved function per score of NDI of 9 or less or UE Quickdash score of 19 or less (indicating for both, 1-19% impaired). (06/09/21: NDI score 9, UE Quickdash score worse at 31.81 , 20-39% impaired) LTG Duration 08/08/21 (06/09/21: Partially met goal, NDI goal met.) Two Impairment Decreased neck mobility Impairment Initial C. AROM in deg's: flex 55, ext 20, rot L 50, R 52, SB L 20, R 28. Short Term Goal (STG) Pt will be educated and independent with a neck stretch HEP. 05/19/21: added seated UT/lev scap/scalene stretch, supine: chin nod/ DNF and scap retraction, wall posture, Self STMs theracane/ ballwall. 05/22/21: added open book. 05/26/21: good form and self sequence, only provided feedback looks correct stretching and open book. Good self use theracane. (06/02/21: Pt educated in proper sitting posture at computer). STG Duration 05/27/21 (06/02/21: MET GOAL) Custodial Goal (LTG) Improve neck mobility, with pt able to drive with greater ease when looking around ( turning of head). 05/26/21: progressing: pt reported able to look over shld better driving yesterday. 06/09/21: C AROM: ext 30 deg's , rot 50 deg's L, rot 47 deg's R) (06/12/21: C. AROM Before treatment: Ext: 27 deg's, Rot L: 52 deg's, Rot R: 58 deg's; SB L: 18 deg's, SB R: 20 deg 's.; After treatment: Ext: 35 deg's, Rot L: 58 deg's, Rot R : 56 deg's; SB L: 22 deg's, SB R: 20 deg's). LTG Duration 08/08/21 (06/12/21: improving) One Impairment Pt lacks appropriate self care HEP. Short Term Goal (STG) Pt will be educated in proper posture on computer and with reading 05/19/21: discussed posture/ alignment sleeping/ gardening. 05/26/21: progressin06/02/21: educated proper posture on computer. 06/09/21: Educ pt in proper posture for reading a book. STG Duration 05/27/21 (06/09/21: MET GOAL) Custodial Goal (LTG) Pt will be educated in a self care HEP of cervical stabilization ex's to manage her pain at a tolerable level. 05/26/21: progressing: incorporate stretching, initiated resisted rows/ shld ext for strengthening. LTG Duration 08/08/21 (05/26/21: progressing ) Progress Towards Goals Progress Comments C. AROM improved after treatment: Active Ext improved from 28 to 30 deg's; Rot is equal at 55 deg's; SB L>R was 23>30 deg's, improved symmetry to 20-25 deg's. Assessment Summary Assessment Pt had good neck mobility for a couple days after last session, but woke with stiffness in the neck; therefore pt nighttime positioning with head in L rotation appears to increase stiffness and lack of mobility for R rotation. Pt C1/C2 neck mobility improved with mobility felt with slight sideglide and rotation without pain. Per verbal review of scalene stretch, pt appears to have a good understanding. Pt neck mobility appears to be improving in symmetry (see neck ROM above). Physical Therapy Plan Frequency and Duration Frequency of Treatment 2x/Week Plan of Care Start Date 06/09/21 Plan of Care End Date 08/08/21 Next Visit Focus/Plan Next Note Type Treatment Note Next Visit Plan Review neck ext strengthening and issue HO, start neck stabilization if appropriate. Careful Manual therapy to improve joint mobility of neck into extension. Modalities (MH/IFES or MH or CP) for pain. Occasionally review alignment posture sleeping.
--- NOTE | 2021-07-15 17:40 | PT.OTN ---
Current Diagnoses Tension-type headache, unspecified, not intractable (07/15/21) Cervicalgia (07/15/21) Physical Therapy Treatment Note PT-OP-A Visit Information Start: 05/01/21 17:08 Freq: Status: Active Protocol: Document 07/15/21 12:55 LRN (Rec: 07/15/21 13:50 LRN [id number]) Out-Patient Physical Therapy Visit Information Visit Information Visit Type Treatment Note Visit Start Time 12:58 Visit Stop Time 13:42 Total Visit Minutes 44 Visit Number 14 Evaluation Information Evaluation Date 05/06/21 Precautions Precautions L knee replacement PT-OP-B Current Condition Start: 05/01/21 17:08 Freq: Status: Active Protocol: Document 05/06/21 13:03 LRN (Rec: 05/06/21 13:47 LRN [id number]) Current Condition History of Current Condition Onset Date Jan 2021 Current Complaints R sided of neck pain when on computer, reading, turning head and sleeping. History of Current Condition Pt reports just before Thanksgi she had a lot going on and was under a lot of stress. States she holds stress in her neck region. States X-ray taken showed bones out of alignment and arthritis. Now life is more normal and had a massage recently that helped a lot. She has neck aches with sleeping and being on the computer. Turning the head is hard. Prior Treatments and Tests X-ray 03/29/21: Multilevel degenerative changes and reversal cervical curvature. Trace retrolisthesis of C3 on C4, C4 on C5 and trace retrolisthesis of C5 on C6. Severe disc space narrowing is present at C5-6, moderate C6- 7 as well as C3-4 and C4-5 Future Testing and Treatments Planned None Treatment Goals Patient/Caregiver Goals Exercises to strengthen the neck and take some stress off the bones. Get advise on what can be done for the neck and do therapy as advised. Prior Functional Status Baseline Function- ADL's Independent Baseline Function- Mobility Independent Baseline Function- Other Sleeping through the night. Some neck pain with stress. Limited to sitting at computer , because head goes forward to see computer, causing pain in the neck. Current Functional Impairments (Reported) Functional Limitations- ADL's Constant neck pain. Interrupts sleeping, wakes 1-2 /night. Able to sleep through the night with Advil. Limited in neck mobility and with driving. Limited to sitting at computer , because head goes forward to see computer, causing pain in the neck. Personal Factors Other Personal Factors That May Effect Lives alone. Therapy/Recovery Arthritis with upper neck pain . Works for [employer]. PT-OP-C Subjective Start: 05/01/21 17:08 Freq: Status: Active Protocol: Document 07/15/21 12:55 LRN (Rec: 07/15/21 13:50 LRN [id number]) OP-PT Subjective Patient Comments Patient Comments Saw this morning. Pain in neck is 2-3/10. When does exercises, her neck doesn't hurt. PT-OP-H Neuro Start: 05/01/21 17:08 Freq: Status: Active Protocol: Document 05/06/21 13:03 LRN (Rec: 05/06/21 13:47 LRN [id number]) Sensation Evaluation Gross Sensation Gross Sensation Right UE Impaired,Left LE Impaired Sensation Description Tingling Comments Summary Comments Raynaud's syndrome. Tingling in fingertips if carrying grocery bags. Deep Tendon Reflex & Clonus Assessment Deep Tendon Reflex Bilateral Brachioradialis Deep Tendon Reflex 2+ Normal Bilateral Tricep Deep Tendon Reflex 2+ Normal Bilateral Bicep Deep Tendon Reflex 1+ Diminished PT-OP-J Posture/Palpation/Skin Start: 05/01/21 17:08 Freq: Status: Active Protocol: Document 05/06/21 13:03 LRN (Rec: 05/06/21 13:47 LRN [id number]) Posture Evaluation Position Standing Head/C-Spine Posture Neutral Position T-Spine Posture Neutral L-Spine Posture Neutral Shoulder Posture (R) Rounded,(R) Forward,(L) Elevated Scapula Posture (L) Neutral,(R) Neutral Pelvis Posture Neutral Weight Distribution Balanced Knee Posture (L) Neutral,(R) Neutral Ankle/Foot Posture (L) Neutral,(R) Neutral Palpation Assessment Location Neck Palpation Location R UT, paraspinals and suboccipital. Palpation Findings Soft Tissue Tightness,Muscle Guarding,Tenderness PT-OP-K Range of Motion Start: 05/01/21 17:08 Freq: Status: Active Protocol: Document 07/15/21 12:55 LRN (Rec: 07/15/21 13:50 LRN [id number]) Cervical Spine Range of Motion Cervical Spine Active Degrees Testing Position Sitting Extension 33 Rotation Left 50 Rotation Right 45 Lateral Flexion Left 20 Lateral Flexion Right 20 Comments After STM/MH: Ext: 35 deg's Rot Left & Right: 50 deg's PT-OP-M Strength Start: 05/01/21 17:08 Freq: Status: Active Protocol: Document 05/06/21 13:03 LRN (Rec: 05/06/21 13:47 LRN [id number]) Cervical Spine Strength Cervical Spine Manual Muscle Testing Comments Generally 5/5 Shoulder Strength Shoulder Manual Muscle Testing Right Comments Generally 5/5 Left Comments Generally 5/5 PT-OP-Q Treatments Start: 05/01/21 17:08 Freq: Status: Active Protocol: Document 07/15/21 12:55 LRN (Rec: 07/15/21 13:50 LRN [id number]) Therapeutic Exercises Supine Exercises C Rot stretch Supine Exercise Name Active C. Rot AROM Side bilateral Resistance AROM Reps/Minutes 2' after manual therapy Comments good feedback stretch Sitting Exercises C. AROM Sitting Exercise Name C AROM stretch for Rot & SB Side bilateral Reps/Minutes 6' Comments AROM taken before & after STM Manual Therapy Treatment Soft Tissue Mobilization Cervical Intertransversarii ms Body Location R intertransversarii ms of ~C3 -4, C4-5 Mobilization Type Sustained Pressure Intensity/Depth Moderate Body Position Prone Comments Stretch into rotation Joint Mobilizations O-A Joint O-A Direction Rotation Grade I Body Position Supine Comments On MH to back R 1st rib Joint R 1st Rib Direction Inferior osscilations Body Position Supine Comments On MH to back C3-C6 Joint C3-C6, extension & rot stretch Grade II Body Position Supine Comments On MH to back Self-Care/Home Management Treatment Education Other Education Reviewed pt's self care HEP with pt taking notes. Activities Self-Care/Home Management Activities Re issued HEP for TBand ex's and ex for Neck strengthening with TBand, & issued Lev 2 TB with white strap. Pt did not feel she needed review. PT-OP-R Modalities Start: 05/01/21 17:08 Freq: Status: Active Protocol: Document 07/15/21 12:55 LRN (Rec: 07/15/21 13:50 LRN [id number]) Hot Pack/Cold Pack Treatment Hot Pack Location Neck & Back Patient Tolerance Good Comments Pt in semi-reclined position with bolster under knees. PT-OP-T Assessment and Plan Start: 05/01/21 17:08 Freq: Status: Active Protocol: Document 07/15/21 12:55 LRN (Rec: 07/15/21 13:50 LRN [id number]) Physical Therapy Assessment Goals Three Impairment Neck pain rated 3/10 resulting in decreased function and diffulty sleeping Impairment NDI is 13 (20-39% impaired), UE Quickdash is 22.72 (20-39% impaired) Short Term Goal (STG) Decrease neck pain with pt will be able to improve sleep ability. 05/22/21: neck pain still wakes her up 3-4 x/night, challenging using pillows due to increase her heating up but uses fan/ open windows and light clothes. 05/26/21 & 06/09/21: stated pain still wakes her up 2-3x/night so gets up and stretches and helps her get back to sleep. 06/09/21: NDI score is 9, UE Quickdash score is 31.81. STG Duration 06/27/21 (06/09/21: Improving in function, pain persists) Skilled Nursing Goal (LTG) Pt will demonstrate improved function per score of NDI of 9 or less or UE Quickdash score of 19 or less (indicating for both, 1-19% impaired). (06/09/21: NDI score 9, UE Quickdash score worse at 31.81 , 20-39% impaired) LTG Duration 08/08/21 (06/09/21: Partially met goal, NDI goal met.) Two Impairment Decreased neck mobility Impairment Initial C. AROM in deg's: flex 55, ext 20, rot L 50, R 52, SB L 20, R 28. Short Term Goal (STG) Pt will be educated and independent with a neck stretch HEP. 05/19/21: added seated UT/lev scap/scalene stretch, supine: chin nod/ DNF and scap retraction, wall posture, Self STMs theracane/ ballwall. 05/22/21: added open book. 05/26/21: good form and self sequence, only provided feedback looks correct stretching and open book. Good self use theracane. (06/02/21: Pt educated in proper sitting posture at computer). STG Duration 05/27/21 (06/02/21: MET GOAL) Skilled Nursing Goal (LTG) Improve neck mobility, with pt able to drive with greater ease when looking around ( turning of head). 05/26/21: progressing: pt reported able to look over shld better driving yesterday. 06/09/21: C AROM: ext 30 deg's , rot 50 deg's L, rot 47 deg's R) (06/12/21: C. AROM Before treatment: Ext: 27 deg's, Rot L: 52 deg's, Rot R: 58 deg's; SB L: 18 deg's, SB R: 20 deg 's.; After treatment: Ext: 35 deg's, Rot L: 58 deg's, Rot R : 56 deg's; SB L: 22 deg's, SB R: 20 deg's). LTG Duration 08/08/21 (06/12/21: improving) One Impairment Pt lacks appropriate self care HEP. Short Term Goal (STG) Pt will be educated in proper posture on computer and with reading 05/19/21: discussed posture/ alignment sleeping/ gardening. 05/26/21: progressin06/02/21: educated proper posture on computer. 06/09/21: Educ pt in proper posture for reading a book. STG Duration 05/27/21 (06/09/21: MET GOAL) Skilled Nursing Goal (LTG) Pt will be educated in a self care HEP of cervical stabilization ex's to manage her pain at a tolerable level. 05/26/21: progressing: incorporate stretching, initiated resisted rows/ shld ext for strengthening. LTG Duration 08/08/21 (05/26/21: progressing ) Assessment Summary Assessment Pt returns after a 2 week vacation in which she reports not being consistent with her HEP. She has decreased pain complaints (no sharp pain) but mildly decreased cervical R rotation and SB. She showed improvement in ext and normalizing of rotation mobilty. Pt primarily has pain/stiffness upon waking. Pt appears to be plateauing in her progress; therefore review of her HEP next visit with DC onto a self care HEP would be appropriate. Physical Therapy Plan Frequency and Duration Frequency of Treatment 2x/Week Plan of Care Start Date 06/09/21 Plan of Care End Date 08/08/21 Next Visit Focus/Plan Next Note Type Discharge Summary Next Visit Plan Probable DC to HEP. Review neck ext strengthening and issue HO. Careful Manual therapy to improve joint mobility of neck into extension. Modalities (MH/IFES or MH or CP) for pain. Review alignment posture sleeping as needed.
--- NOTE | 2021-07-21 17:27 | PT.OTN ---
Current Diagnoses Tension-type headache, unspecified, not intractable (07/21/21) Cervicalgia (07/21/21) Physical Therapy Treatment Note PT-OP-A Visit Information Start: 05/01/21 17:08 Freq: Status: Active Protocol: Document 07/21/21 14:36 LRN (Rec: 07/21/21 15:20 LRN [id number]) Out-Patient Physical Therapy Visit Information Visit Information Visit Type Treatment Note Visit Start Time 14:36 Visit Stop Time 15:15 Total Visit Minutes 39 Visit Number 15 Evaluation Information Evaluation Date 05/06/21 Precautions Precautions L knee replacement PT-OP-B Current Condition Start: 05/01/21 17:08 Freq: Status: Active Protocol: Document 05/06/21 13:03 LRN (Rec: 05/06/21 13:47 LRN [id number]) Current Condition History of Current Condition Onset Date Jan 2021 Current Complaints R sided of neck pain when on computer, reading, turning head and sleeping. History of Current Condition Pt reports just before Thanksgi she had a lot going on and was under a lot of stress. States she holds stress in her neck region. States X-ray taken showed bones out of alignment and arthritis. Now life is more normal and had a massage recently that helped a lot. She has neck aches with sleeping and being on the computer. Turning the head is hard. Prior Treatments and Tests X-ray 03/29/21: Multilevel degenerative changes and reversal cervical curvature. Trace retrolisthesis of C3 on C4, C4 on C5 and trace retrolisthesis of C5 on C6. Severe disc space narrowing is present at C5-6, moderate C6- 7 as well as C3-4 and C4-5 Future Testing and Treatments Planned None Treatment Goals Patient/Caregiver Goals Exercises to strengthen the neck and take some stress off the bones. Get advise on what can be done for the neck and do therapy as advised. Prior Functional Status Baseline Function- ADL's Independent Baseline Function- Mobility Independent Baseline Function- Other Sleeping through the night. Some neck pain with stress. Limited to sitting at computer , because head goes forward to see computer, causing pain in the neck. Current Functional Impairments (Reported) Functional Limitations- ADL's Constant neck pain. Interrupts sleeping, wakes 1-2 /night. Able to sleep through the night with Advil. Limited in neck mobility and with driving. Limited to sitting at computer , because head goes forward to see computer, causing pain in the neck. Personal Factors Other Personal Factors That May Effect Lives alone. Therapy/Recovery Arthritis with upper neck pain . Works for [employer]. PT-OP-C Subjective Start: 05/01/21 17:08 Freq: Status: Active Protocol: Document 07/21/21 14:36 LRN (Rec: 07/21/21 15:20 LRN [id number]) OP-PT Subjective Patient Comments Patient Comments After last session, felt good for 2 days, then had to drive to [place] and back; therefore neck was tense and became more stiff. PT-OP-H Neuro Start: 05/01/21 17:08 Freq: Status: Active Protocol: Document 05/06/21 13:03 LRN (Rec: 05/06/21 13:47 LRN [id number]) Sensation Evaluation Gross Sensation Gross Sensation Right UE Impaired,Left LE Impaired Sensation Description Tingling Comments Summary Comments Raynaud's syndrome. Tingling in fingertips if carrying grocery bags. Deep Tendon Reflex & Clonus Assessment Deep Tendon Reflex Bilateral Brachioradialis Deep Tendon Reflex 2+ Normal Bilateral Tricep Deep Tendon Reflex 2+ Normal Bilateral Bicep Deep Tendon Reflex 1+ Diminished PT-OP-J Posture/Palpation/Skin Start: 05/01/21 17:08 Freq: Status: Active Protocol: Document 05/06/21 13:03 LRN (Rec: 05/06/21 13:47 LRN [id number]) Posture Evaluation Position Standing Head/C-Spine Posture Neutral Position T-Spine Posture Neutral L-Spine Posture Neutral Shoulder Posture (R) Rounded,(R) Forward,(L) Elevated Scapula Posture (L) Neutral,(R) Neutral Pelvis Posture Neutral Weight Distribution Balanced Knee Posture (L) Neutral,(R) Neutral Ankle/Foot Posture (L) Neutral,(R) Neutral Palpation Assessment Location Neck Palpation Location R UT, paraspinals and suboccipital. Palpation Findings Soft Tissue Tightness,Muscle Guarding,Tenderness PT-OP-K Range of Motion Start: 05/01/21 17:08 Freq: Status: Active Protocol: Document 07/21/21 14:36 LRN (Rec: 07/21/21 15:20 LRN [id number]) Cervical Spine Range of Motion Cervical Spine Active Degrees Testing Position Sitting Extension 40 Rotation Left 50 Rotation Right 50 PT-OP-M Strength Start: 05/01/21 17:08 Freq: Status: Active Protocol: Document 05/06/21 13:03 LRN (Rec: 05/06/21 13:47 LRN [id number]) Cervical Spine Strength Cervical Spine Manual Muscle Testing Comments Generally 5/5 Shoulder Strength Shoulder Manual Muscle Testing Right Comments Generally 5/5 Left Comments Generally 5/5 PT-OP-Q Treatments Start: 05/01/21 17:08 Freq: Status: Active Protocol: Document 07/21/21 14:36 LRN (Rec: 07/21/21 17:23 LRN [id number]) Manual Therapy Treatment Soft Tissue Mobilization L UT Body Location L UT Mobilization Type Sustained Pressure Body Position Supine Comments Manual stretch Cervical Intertransversarii ms Body Location R intertransversari ms of ~C2- 3, C3-C4 Mobilization Type Sustained Pressure Intensity/Depth Moderate Body Position Supine R Scalenes Body Location R Scalenes Mobilization Type Manual Lymphatic Drainage, Sustained Pressure Intensity/Depth Moderate Body Position Supine Manual Traction Cervical Details Manual C. Tx while on MH to back & neck Body Position Reclin sup Reps/Duration 8' Comments Axial Traction and with C. Rot (mostly R). PT-OP-R Modalities Start: 05/01/21 17:08 Freq: Status: Active Protocol: Document 07/15/21 12:55 LRN (Rec: 07/15/21 13:50 LRN [id number]) Hot Pack/Cold Pack Treatment Hot Pack Location Neck & Back Patient Tolerance Good Comments Pt in semi-reclined position with bolster under knees. PT-OP-T Assessment and Plan Start: 05/01/21 17:08 Freq: Status: Active Protocol: Document 07/21/21 14:36 LRN (Rec: 07/21/21 15:20 LRN [id number]) Physical Therapy Assessment Goals Three Impairment Neck pain rated 3/10 resulting in decreased function and diffulty sleeping Impairment NDI is 13 (20-39% impaired), UE Quickdash is 22.72 (20-39% impaired) Short Term Goal (STG) Decrease neck pain with pt will be able to improve sleep ability. 05/22/21: neck pain still wakes her up 3-4 x/night, challenging using pillows due to increase her heating up but uses fan/ open windows and light clothes. 05/26/21 & 06/09/21: stated pain still wakes her up 2-3x/night so gets up and stretches and helps her get back to sleep. 06/09/21: NDI score is 9, UE Quickdash score is 31.81. STG Duration 06/27/21 (06/09/21: Improving in function, pain persists) Shelter Goal (LTG) Pt will demonstrate improved function per score of NDI of 9 or less or UE Quickdash score of 19 or less (indicating for both, 1-19% impaired). (06/09/21: NDI score 9, UE Quickdash score worse at 31.81 , 20-39% impaired) LTG Duration 08/08/21 (06/09/21: Partially met goal, NDI goal met.) Two Impairment Decreased neck mobility Impairment Initial C. AROM in deg's: flex 55, ext 20, rot L 50, R 52, SB L 20, R 28. Short Term Goal (STG) Pt will be educated and independent with a neck stretch HEP. 05/19/21: added seated UT/lev scap/scalene stretch, supine: chin nod/ DNF and scap retraction, wall posture, Self STMs theracane/ ballwall. 05/22/21: added open book. 05/26/21: good form and self sequence, only provided feedback looks correct stretching and open book. Good self use theracane. (06/02/21: Pt educated in proper sitting posture at computer). STG Duration 05/27/21 (06/02/21: MET GOAL) Shelter Goal (LTG) Improve neck mobility, with pt able to drive with greater ease when looking around ( turning of head). 05/26/21: progressing: pt reported able to look over shld better driving yesterday. 06/09/21: C AROM: ext 30 deg's , rot 50 deg's L, rot 47 deg's R) (06/12/21: C. AROM Before treatment: Ext: 27 deg's, Rot L: 52 deg's, Rot R: 58 deg's; SB L: 18 deg's, SB R: 20 deg 's.; After treatment: Ext: 35 deg's, Rot L: 58 deg's, Rot R : 56 deg's; SB L: 22 deg's, SB R: 20 deg's). LTG Duration 08/08/21 (06/12/21: improving) One Impairment Pt lacks appropriate self care HEP. Short Term Goal (STG) Pt will be educated in proper posture on computer and with reading 05/19/21: discussed posture/ alignment sleeping/ gardening. 05/26/21: progressin06/02/21: educated proper posture on computer. 06/09/21: Educ pt in proper posture for reading a book. STG Duration 05/27/21 (06/09/21: MET GOAL) Account Officer Goal (LTG) Pt will be educated in a self care HEP of cervical stabilization ex's to manage her pain at a tolerable level. 05/26/21: progressing: incorporate stretching, initiated resisted rows/ shld ext for strengthening. LTG Duration 08/08/21 (05/26/21: progressing ) Assessment Summary Assessment Much improved active C. R rot after treatment to 50 deg's, making rot mobility symmetrical. Good release and relaxation of R UT and R C2-C3, C3-C4 with manual therapy, improving C mobility. Physical Therapy Plan Frequency and Duration Frequency of Treatment 2x/Week Plan of Care Start Date 06/09/21 Plan of Care End Date 08/08/21 Next Visit Focus/Plan Next Note Type Progress Note Next Visit Plan Reassess C. AROM (rot, ext) before and after treatment. Pt improving in painfree mobility; therefore cont PT. PT & pt to be gone 07/31-08/05; therefore extend POC for 6 more weeks due to break in therapy with PN next visit. Initiate shoulder stretches. Review neck ext strengthening and issue HO. Careful Manual therapy to improve joint mobility of neck into extension. Modalities (MH/IFES or MH or CP) for pain. Review alignment posture sleeping as needed.
--- NOTE | 2021-07-24 17:40 | PT.OTN ---
Current Diagnoses Tension-type headache, unspecified, not intractable (07/24/21) Cervicalgia (07/24/21) Physical Therapy Treatment Note PT-OP-A Visit Information Start: 05/01/21 17:08 Freq: Status: Active Protocol: Document 07/24/21 09:04 LRN (Rec: 07/24/21 09:51 LRN [id number]) Out-Patient Physical Therapy Visit Information Visit Information Visit Type Progress Note Visit Start Time 09:04 Visit Stop Time 09:47 Total Visit Minutes 43 Visit Number 26 Evaluation Information Evaluation Date 05/06/21 Precautions Precautions L knee replacement PT-OP-B Current Condition Start: 05/01/21 17:08 Freq: Status: Active Protocol: Document 05/06/21 13:03 LRN (Rec: 05/06/21 13:47 LRN [id number]) Current Condition History of Current Condition Onset Date Jan 2021 Current Complaints R sided of neck pain when on computer, reading, turning head and sleeping. History of Current Condition Pt reports just before Thanksgi she had a lot going on and was under a lot of stress. States she holds stress in her neck region. States X-ray taken showed bones out of alignment and arthritis. Now life is more normal and had a massage recently that helped a lot. She has neck aches with sleeping and being on the computer. Turning the head is hard. Prior Treatments and Tests X-ray 03/29/21: Multilevel degenerative changes and reversal cervical curvature. Trace retrolisthesis of C3 on C4, C4 on C5 and trace retrolisthesis of C5 on C6. Severe disc space narrowing is present at C5-6, moderate C6- 7 as well as C3-4 and C4-5 Future Testing and Treatments Planned None Treatment Goals Patient/Caregiver Goals Exercises to strengthen the neck and take some stress off the bones. Get advise on what can be done for the neck and do therapy as advised. Prior Functional Status Baseline Function- ADL's Independent Baseline Function- Mobility Independent Baseline Function- Other Sleeping through the night. Some neck pain with stress. Limited to sitting at computer , because head goes forward to see computer, causing pain in the neck. Current Functional Impairments (Reported) Functional Limitations- ADL's Constant neck pain. Interrupts sleeping, wakes 1-2 /night. Able to sleep through the night with Advil. Limited in neck mobility and with driving. Limited to sitting at computer , because head goes forward to see computer, causing pain in the neck. Personal Factors Other Personal Factors That May Effect Lives alone. Therapy/Recovery Arthritis with upper neck pain . Works for [employer]. PT-OP-C Subjective Start: 05/01/21 17:08 Freq: Status: Active Protocol: Document 07/24/21 09:04 LRN (Rec: 07/24/21 09:51 LRN [id number]) OP-PT Subjective Patient Comments Patient Comments States she has a lot of rot ROM since the last time and did not have any pain in neck waking since last appt. Patient Questionnaires Quick Dash- Upper Extremity Quick Dash UE Score 25 Quick Dash UE Impairment 20 to 39% Impaired (Score 20- 39) PT-OP-H Neuro Start: 05/01/21 17:08 Freq: Status: Active Protocol: Document 05/06/21 13:03 LRN (Rec: 05/06/21 13:47 LRN [id number]) Sensation Evaluation Gross Sensation Gross Sensation Right UE Impaired,Left LE Impaired Sensation Description Tingling Comments Summary Comments Raynaud's syndrome. Tingling in fingertips if carrying grocery bags. Deep Tendon Reflex & Clonus Assessment Deep Tendon Reflex Bilateral Brachioradialis Deep Tendon Reflex 2+ Normal Bilateral Tricep Deep Tendon Reflex 2+ Normal Bilateral Bicep Deep Tendon Reflex 1+ Diminished PT-OP-J Posture/Palpation/Skin Start: 05/01/21 17:08 Freq: Status: Active Protocol: Document 05/06/21 13:03 LRN (Rec: 05/06/21 13:47 LRN [id number]) Posture Evaluation Position Standing Head/C-Spine Posture Neutral Position T-Spine Posture Neutral L-Spine Posture Neutral Shoulder Posture (R) Rounded,(R) Forward,(L) Elevated Scapula Posture (L) Neutral,(R) Neutral Pelvis Posture Neutral Weight Distribution Balanced Knee Posture (L) Neutral,(R) Neutral Ankle/Foot Posture (L) Neutral,(R) Neutral Palpation Assessment Location Neck Palpation Location R UT, paraspinals and suboccipital. Palpation Findings Soft Tissue Tightness,Muscle Guarding,Tenderness PT-OP-K Range of Motion Start: 05/01/21 17:08 Freq: Status: Active Protocol: Document 07/24/21 09:04 LRN (Rec: 07/24/21 09:51 LRN [id number]) Cervical Spine Range of Motion Cervical Spine Active Degrees Testing Position Sitting Extension 33 Rotation Left 57 Rotation Right 58 Comments After STM/MH: Ext: 38 deg's Rot 53 deg's Left & 55 deg's Right PT-OP-M Strength Start: 05/01/21 17:08 Freq: Status: Active Protocol: Document 05/06/21 13:03 LRN (Rec: 05/06/21 13:47 LRN [id number]) Cervical Spine Strength Cervical Spine Manual Muscle Testing Comments Generally 5/5 Shoulder Strength Shoulder Manual Muscle Testing Right Comments Generally 5/5 Left Comments Generally 5/5 PT-OP-Q Treatments Start: 05/01/21 17:08 Freq: Status: Active Protocol: Document 07/24/21 09:04 LRN (Rec: 07/24/21 09:51 LRN [id number]) Therapeutic Exercises Supine Exercises C Rot stretch Supine Exercise Name Active & active assisted C. Rot stretch Side bilateral Sitting Exercises C ext strengthening Sitting Exercise Name Cervical Aaliyah flex, ext. Side bilateral Reps/Minutes 10x C. active Ext Sitting Exercise Name C. active extension Reps/Minutes 2' C. AROM Sitting Exercise Name C. AROM rotation (R>L) Side bilateral Reps/Minutes 4' Manual Therapy Treatment Soft Tissue Mobilization L UT Body Location L UT Mobilization Type Sustained Pressure Body Position Supine Comments Manual stretch Cervical Intertransversarii ms Body Location R intertransversari ms of ~C2- 3, C3-C4 Mobilization Type Sustained Pressure Intensity/Depth Moderate Body Position Supine R Scalenes Body Location R Scalenes Mobilization Type Sustained Pressure Intensity/Depth Moderate Body Position Supine Joint Mobilizations R 1st rib Joint R 1st Rib Direction Inferior osscilations Body Position Supine Comments On MH to back Manual Traction Cervical Details Manual C. Tx while on MH to back & neck Body Position Reclin sup Reps/Duration 8' Comments Axial Traction and with C. Rot (mostly R). PT-OP-R Modalities Start: 05/01/21 17:08 Freq: Status: Active Protocol: Document 07/24/21 09:04 LRN (Rec: 07/24/21 09:51 LRN [id number]) Hot Pack/Cold Pack Treatment Hot Pack Location Neck & Back Patient Tolerance Good Comments Pt in semi-reclined position with bolster under knees. PT-OP-T Assessment and Plan Start: 05/01/21 17:08 Freq: Status: Active Protocol: Document 07/24/21 09:04 LRN (Rec: 07/24/21 09:51 LRN [id number]) Physical Therapy Assessment Rehab Potential Rehabilitation Potential Good Evaluation Complexity Number of Personal Factors/Comorbidities 1-2 Number of Body Systems Impaired 4 or More Clinical Presentation at Evaluation Evolving Impairments Impairments Activity Tolerance,Pain,ROM, Soft Tissue Mobility Goals Three Impairment Neck pain rated 3/10 resulting in decreased function and diffulty sleeping Impairment NDI is 13 (20-39% impaired), UE Quickdash is 22.72 (20-39% impaired) Short Term Goal (STG) Decrease neck pain with pt will be able to improve sleep ability. 05/22/21: neck pain still wakes her up 3-4 x/night, challenging using pillows due to increase her heating up but uses fan/ open windows and light clothes. 05/26/21 & 06/09/21: stated pain still wakes her up 2-3x/night so gets up and stretches and helps her get back to sleep. 06/09/21: NDI score is 9, UE Quickdash score is 31.81. (07/24/21: Pt reporting no pain on waking the past 3 days ). STG Duration 06/27/21 (07/24/21: Met for first time the past 3 days) Fulfillment Representative Goal (LTG) Pt will demonstrate improved function per score of NDI of 9 or less or UE Quickdash score of 19 or less (indicating for both, 1-19% impaired). (06/09/21: NDI score 9, UE Quickdash score worse at 31.81 , 20-39% impaired) LTG Duration 08/08/21 (06/09/21: Partially met goal, NDI goal met.) Two Impairment Decreased neck mobility Impairment Initial C. AROM in deg's: flex 55, ext 20, rot L 50, R 52, SB L 20, R 28. Short Term Goal (STG) Pt will be educated and independent with a neck stretch HEP. 05/19/21: added seated UT/lev scap/scalene stretch, supine: chin nod/ DNF and scap retraction, wall posture, Self STMs theracane/ ballwall. 05/22/21: added open book. 05/26/21: good form and self sequence, only provided feedback looks correct stretching and open book. Good self use theracane. (06/02/21: Pt educated in proper sitting posture at computer). STG Duration 05/27/21 (06/02/21: MET GOAL) Half-Way Goal (LTG) Improve neck mobility, with pt able to drive with greater ease when looking around ( turning of head). 05/26/21: progressing: pt reported able to look over shld better driving yesterday. 06/09/21: C AROM: ext 30 deg's , rot 50 deg's L, rot 47 deg's R) (06/12/21: C. AROM Before treatment: Ext: 27 deg's, Rot L: 52 deg's, Rot R: 58 deg's; SB L: 18 deg's, SB R: 20 deg 's.; After treatment: Ext: 35 deg's, Rot L: 58 deg's, Rot R : 56 deg's; SB L: 22 deg's, SB R: 20 deg's). (07/24/21: C. AROM @ start: Ext: 33; Rot 57 L, 58 R. AROM @ end: Ext 38; Rot: 53 L, 55 R) LTG Duration 08/08/21 (07/24/21: improving) One Impairment Pt lacks appropriate self care HEP. Short Term Goal (STG) Pt will be educated in proper posture on computer and with reading 05/19/21: discussed posture/ alignment sleeping/ gardening. 05/26/21: progressin06/02/21: educated proper posture on computer. 06/09/21: Educ pt in proper posture for reading a book. STG Duration 05/27/21 (06/09/21: MET GOAL) Fulfillment Representative Goal (LTG) Pt will be educated in a self care HEP of cervical stabilization ex's to manage her pain at a tolerable level. 05/26/21: progressing: incorporate stretching, initiated resisted rows/ shld ext for strengthening. LTG Duration 08/08/21 (05/26/21: progressing ) Assessment Summary Assessment Pt improved greatly in the last few days. Function improved from last progress note from UE Quickdash score of 31 to 25 (initial was 22), although the percent of dysfunction is the same at 20- 39% (with scores 20-39). The pt did not complete the Neck Disability Index (NDI) today, but previously on 06/09/21 score was 9, indicating 1-19% impaired (initial was 13, 20- 39% impaired), but today the pt noted she has had no neck pain on waking for the past 3 days. The pt's neck mobility shows improved symmetry of motion at start of therapy and overall improved cervical extension mobility. Functionally she has more restful sleep and is able to wake in the morning without neck pain for the past 3 days. The pt will benefit from continued physical therapy for cervical stabilization to stabilize her condition of painfree mobility with self care treatments. The pt has a trip planned; therefore time of therapy is needed to be expanded to encorporate the time she will be gone on vacation. Physical Therapy Plan Frequency and Duration Frequency of Treatment 2x/Week Plan of Care Start Date 07/15/21 Plan of Care End Date 09/10/21 Therapeutic Interventions Therapeutic Interventions Home Exercise Program,Manual Therapy,Neuromuscular Re- education,Patient/Caregiver Education,Self-Care/Home Management,Soft Tissue Mobilization,Therapeutic Exercises Next Visit Focus/Plan Next Note Type Treatment Note Next Visit Plan Pt will be returning from trip to [place]; therefore reassess C. AROM (rot, ext) before and after treatment. PT & pt to be gone 07/31-08/05; therefore extend POC for 6 more weeks due to break in therapy. Monitor waking from sleeping tolerance. Initiate shoulder stretches. Review neck ext strengthening and issue HO. Careful Manual therapy to improve joint mobility of neck into R>L rotation and R UT/ 1st rib mobility. Modalities (MH or MH/IFES) for pain.
--- NOTE | 2021-08-11 11:58 | PT.OTN ---
Current Diagnoses Tension-type headache, unspecified, not intractable (08/11/21) Cervicalgia (08/11/21) Physical Therapy Treatment Note PT-OP-A Visit Information Start: 05/01/21 17:08 Freq: Status: Active Protocol: Document 08/11/21 11:20 SP (Rec: 08/11/21 12:10 SP [id number]) Out-Patient Physical Therapy Visit Information Visit Information Visit Type Treatment Note Visit Start Time 11:20 Visit Stop Time 11:58 Total Visit Minutes 38 Visit Number 27 Number of TELEPHONE DIRECTORY DELIVERER Visits 1 Evaluation Information Evaluation Date 05/06/21 Precautions Precautions L knee replacement PT-OP-B Current Condition Start: 05/01/21 17:08 Freq: Status: Active Protocol: Document 05/06/21 13:03 LRN (Rec: 05/06/21 13:47 LRN [id number]) Current Condition History of Current Condition Onset Date Jan 2021 Current Complaints R sided of neck pain when on computer, reading, turning head and sleeping. History of Current Condition Pt reports just before she had a lot going on and was under a lot of stress. States she holds stress in her neck region. States X-ray taken showed bones out of alignment and arthritis. Now life is more normal and had a massage recently that helped a lot. She has neck aches with sleeping and being on the computer. Turning the head is hard. Prior Treatments and Tests X-ray 03/29/21: Multilevel degenerative changes and reversal cervical curvature. Trace retrolisthesis of C3 on C4, C4 on C5 and trace retrolisthesis of C5 on C6. Severe disc space narrowing is present at C5-6, moderate C6- 7 as well as C3-4 and C4-5 Future Testing and Treatments Planned None Treatment Goals Patient/Caregiver Goals Exercises to strengthen the neck and take some stress off the bones. Get advise on what can be done for the neck and do therapy as advised. Prior Functional Status Baseline Function- ADL's Independent Baseline Function- Mobility Independent Baseline Function- Other Sleeping through the night. Some neck pain with stress. Limited to sitting at computer , because head goes forward to see computer, causing pain in the neck. Current Functional Impairments (Reported) Functional Limitations- ADL's Constant neck pain. Interrupts sleeping, wakes 1-2 /night. Able to sleep through the night with Advil. Limited in neck mobility and with driving. Limited to sitting at computer , because head goes forward to see computer, causing pain in the neck. Personal Factors Other Personal Factors That May Effect Lives alone. Therapy/Recovery Arthritis with upper neck pain . Works for [employer] program. PT-OP-C Subjective Start: 05/01/21 17:08 Freq: Status: Active Protocol: Document 08/11/21 11:20 SP (Rec: 08/11/21 12:10 SP [id number]) OP-PT Subjective Patient Comments Patient Comments Pt stated neck was really stiff and uncomfortable on plane rides but did her stretches could. Today states feels good, was ableto walk 2. 5 miles this am [place] 45 minutes to do full loops. PT-OP-H Neuro Start: 05/01/21 17:08 Freq: Status: Active Protocol: Document 05/06/21 13:03 LRN (Rec: 05/06/21 13:47 LRN [id number]) Sensation Evaluation Gross Sensation Gross Sensation Right UE Impaired,Left LE Impaired Sensation Description Tingling Comments Summary Comments Raynaud's syndrome. Tingling in fingertips if carrying grocery bags. Deep Tendon Reflex & Clonus Assessment Deep Tendon Reflex Bilateral Brachioradialis Deep Tendon Reflex 2+ Normal Bilateral Tricep Deep Tendon Reflex 2+ Normal Bilateral Bicep Deep Tendon Reflex 1+ Diminished PT-OP-J Posture/Palpation/Skin Start: 05/01/21 17:08 Freq: Status: Active Protocol: Document 05/06/21 13:03 LRN (Rec: 05/06/21 13:47 LRN [id number]) Posture Evaluation Position Standing Head/C-Spine Posture Neutral Position T-Spine Posture Neutral L-Spine Posture Neutral Shoulder Posture (R) Rounded,(R) Forward,(L) Elevated Scapula Posture (L) Neutral,(R) Neutral Pelvis Posture Neutral Weight Distribution Balanced Knee Posture (L) Neutral,(R) Neutral Ankle/Foot Posture (L) Neutral,(R) Neutral Palpation Assessment Location Neck Palpation Location R UT, paraspinals and suboccipital. Palpation Findings Soft Tissue Tightness,Muscle Guarding,Tenderness PT-OP-K Range of Motion Start: 05/01/21 17:08 Freq: Status: Active Protocol: Document 08/11/21 11:20 SP (Rec: 08/11/21 12:10 SP [id number]) Cervical Spine Range of Motion Cervical Spine Active Degrees Testing Position Sitting Extension 38 Rotation Left 70 Rotation Right 78 Comments take when arrived. PT-OP-M Strength Start: 05/01/21 17:08 Freq: Status: Active Protocol: Document 05/06/21 13:03 LRN (Rec: 05/06/21 13:47 LRN [id number]) Cervical Spine Strength Cervical Spine Manual Muscle Testing Comments Generally 5/5 Shoulder Strength Shoulder Manual Muscle Testing Right Comments Generally 5/5 Left Comments Generally 5/5 PT-OP-Q Treatments Start: 05/01/21 17:08 Freq: Status: Active Protocol: Document 08/11/21 11:20 SP (Rec: 08/11/21 12:10 SP [id number]) Therapeutic Exercises Supine Exercises C. Isometrics Supine Exercise Name ext, lateral SB- reviewed HEP (performs sitting home) Reps/Minutes 5 sec hold x10- throughout day Comments good form- painfree C Rot stretch Supine Exercise Name Active & active assisted C. Rot stretch Side bilateral C SB stretch Supine Exercise Name Active C SB UT stretch Side bilateral Resistance AAROM self w/opp UE Reps/Minutes 2' after manual therapy Comments good feedback stretch Sitting Exercises scalene stretch Sitting Exercise Name reviewed HEP- in standing Side right Equipment Used opp UE gentle over pressure Reps/Minutes 15 s x 2 Comments good form UT, lev scap stretch Sitting Exercise Name reviewed HEP Side bilateral Equipment Used opp UE gentle over pressure Reps/Minutes 30s x2 each Comments good form Standing Exercises Ys off wall Standing Exercise Name added to HEP Side bilateral Resistance AROM Equipment Used facing wall Reps/Minutes 1 sec hold x5 Comments cued x1 allow scap depression and elbows straight- good self corrections cervical TB: ext, SB Standing Exercise Name added to HEP- looped around head and anchored in door top head height Resistance TB #1 Reps/Minutes 3 sec hold x5 reps each direction Comments good CS alignment and performance self STMs Standing Exercise Name UT, interscap- review HEP Side bilateral Equipment Used ball on wall Reps/Minutes 1 min Comments good feedback does at home too Self-Care/Home Management Treatment Education Patient Education Home Exercise Program,Posture Other Education Reviewed HEP, added resisted CS ext/SB w/ TB and Ys OH off wall for postural progression. PT-OP-R Modalities Start: 05/01/21 17:08 Freq: Status: Active Protocol: Document 07/24/21 09:04 LRN (Rec: 07/24/21 09:51 LRN [id number]) Hot Pack/Cold Pack Treatment Hot Pack Location Neck & Back Patient Tolerance Good Comments Pt in semi-reclined position with bolster under knees. PT-OP-T Assessment and Plan Start: 05/01/21 17:08 Freq: Status: Active Protocol: Document 08/11/21 11:20 SP (Rec: 08/11/21 12:10 SP [id number]) Physical Therapy Assessment Goals Three Impairment Neck pain rated 3/10 resulting in decreased function and diffulty sleeping Impairment NDI is 13 (20-39% impaired), UE Quickdash is 22.72 (20-39% impaired) Short Term Goal (STG) Decrease neck pain with pt will be able to improve sleep ability. 05/22/21: neck pain still wakes her up 3-4 x/night, challenging using pillows due to increase her heating up but uses fan/ open windows and light clothes. 05/26/21 & 06/09/21: stated pain still wakes her up 2-3x/night so gets up and stretches and helps her get back to sleep. 06/09/21: NDI score is 9, UE Quickdash score is 31.81. (07/24/21: Pt reporting no pain on waking the past 3 days ). STG Duration 06/27/21 (07/24/21: Met for first time the past 3 days) Studio Producer Goal (LTG) Pt will demonstrate improved function per score of NDI of 9 or less or UE Quickdash score of 19 or less (indicating for both, 1-19% impaired). (06/09/21: NDI score 9, UE Quickdash score worse at 31.81 , 20-39% impaired) LTG Duration 08/08/21 (06/09/21: Partially met goal, NDI goal met.) Two Impairment Decreased neck mobility Impairment Initial C. AROM in deg's: flex 55, ext 20, rot L 50, R 52, SB L 20, R 28. Short Term Goal (STG) Pt will be educated and independent with a neck stretch HEP. 05/19/21: added seated UT/lev scap/scalene stretch, supine: chin nod/ DNF and scap retraction, wall posture, Self STMs theracane/ ballwall. 05/22/21: added open book. 05/26/21: good form and self sequence, only provided feedback looks correct stretching and open book. Good self use theracane. (06/02/21: Pt educated in proper sitting posture at computer). STG Duration 05/27/21 (06/02/21: MET GOAL) Studio Producer Goal (LTG) Improve neck mobility, with pt able to drive with greater ease when looking around ( turning of head). 05/26/21: progressing: pt reported able to look over shld better driving yesterday. 06/09/21: C AROM: ext 30 deg's , rot 50 deg's L, rot 47 deg's R) (06/12/21: C. AROM Before treatment: Ext: 27 deg's, Rot L: 52 deg's, Rot R: 58 deg's; SB L: 18 deg's, SB R: 20 deg 's.; After treatment: Ext: 35 deg's, Rot L: 58 deg's, Rot R : 56 deg's; SB L: 22 deg's, SB R: 20 deg's). (07/24/21: C. AROM @ start: Ext: 33; Rot 57 L, 58 R. AROM @ end: Ext 38; Rot: 53 L, 55 R) 08/11/21: GOAL MET: states is able to look over shoulder to see when driving now with no pain. LTG Duration 08/08/21 (08/11/21: GOAL MET) One Impairment Pt lacks appropriate self care HEP. Short Term Goal (STG) Pt will be educated in proper posture on computer and with reading 05/19/21: discussed posture/ alignment sleeping/ gardening. 05/26/21: progressin06/02/21: educated proper posture on computer. 06/09/21: Educ pt in proper posture for reading a book. STG Duration 05/27/21 (06/09/21: MET GOAL) Studio Producer Goal (LTG) Pt will be educated in a self care HEP of cervical stabilization ex's to manage her pain at a tolerable level. 05/26/21: progressing: incorporate stretching, initiated resisted rows/ shld ext for strengthening. 08/11/21: added CS TB strengthening: ext/ SB, Ys off wall OH. LTG Duration 08/08/21 (08/11/21: progressing) Progress Towards Goals Progress Towards Goals Progressing Toward Goals Progress Comments Met LTG #2: able look over shoulder driving painfree now. Assessment Summary Assessment Pt good form HEP stretching, isometrics, tolerated progressed to resisted CS ext/ SB this tx and LT strengthening Ys OH facing wall with good comforting effort, painfree. Physical Therapy Plan Frequency and Duration Frequency of Treatment 2x/Week Plan of Care Start Date 07/15/21 Plan of Care End Date 09/10/21 Therapeutic Interventions Therapeutic Interventions Home Exercise Program,Manual Therapy,Neuromuscular Re- education,Patient/Caregiver Education,Self-Care/Home Management,Soft Tissue Mobilization,Therapeutic Exercises Next Visit Focus/Plan Next Note Type Treatment Note Next Visit Plan Recheck CS ROM, added CS w/ TB and Ys off wall to HEP. Monitor waking from sleeping tolerance. Initiate shoulder stretches. Careful Manual therapy to improve joint mobility of neck into R>L rotation and R UT/ 1st rib mobility. Modalities (MH or MH/IFES) for pain.
--- NOTE | 2021-08-29 15:18 | PT.OTN ---
Current Diagnoses Tension-type headache, unspecified, not intractable (08/29/21) Cervicalgia (08/29/21) Physical Therapy Treatment Note PT-OP-A Visit Information Start: 05/01/21 17:08 Freq: Status: Active Protocol: Document 08/29/21 14:45 LRN (Rec: 08/29/21 15:18 LRN [id number]) Out-Patient Physical Therapy Visit Information Visit Information Visit Type Treatment Note Visit Start Time 14:45 Visit Stop Time 15:14 Total Visit Minutes 29 Visit Number 28 Evaluation Information Evaluation Date 05/06/21 Precautions Precautions L knee replacement PT-OP-B Current Condition Start: 05/01/21 17:08 Freq: Status: Active Protocol: Document 05/06/21 13:03 LRN (Rec: 05/06/21 13:47 LRN [id number]) Current Condition History of Current Condition Onset Date Jan 2021 Current Complaints R sided of neck pain when on computer, reading, turning head and sleeping. History of Current Condition Pt reports just before [place] she had a lot going on and was under a lot of stress. States she holds stress in her neck region. States X-ray taken showed bones out of alignment and arthritis. Now life is more normal and had a massage recently that helped a lot. She has neck aches with sleeping and being on the computer. Turning the head is hard. Prior Treatments and Tests X-ray 03/29/21: Multilevel degenerative changes and reversal cervical curvature. Trace retrolisthesis of C3 on C4, C4 on C5 and trace retrolisthesis of C5 on C6. Severe disc space narrowing is present at C5-6, moderate C6- 7 as well as C3-4 and C4-5 Future Testing and Treatments Planned None Treatment Goals Patient/Caregiver Goals Exercises to strengthen the neck and take some stress off the bones. Get advise on what can be done for the neck and do therapy as advised. Prior Functional Status Baseline Function- ADL's Independent Baseline Function- Mobility Independent Baseline Function- Other Sleeping through the night. Some neck pain with stress. Limited to sitting at computer , because head goes forward to see computer, causing pain in the neck. Current Functional Impairments (Reported) Functional Limitations- ADL's Constant neck pain. Interrupts sleeping, wakes 1-2 /night. Able to sleep through the night with Advil. Limited in neck mobility and with driving. Limited to sitting at computer , because head goes forward to see computer, causing pain in the neck. Personal Factors Other Personal Factors That May Effect Lives alone. Therapy/Recovery Arthritis with upper neck pain . Works for [employer]. PT-OP-C Subjective Start: 05/01/21 17:08 Freq: Status: Active Protocol: Document 08/29/21 14:45 LRN (Rec: 08/29/21 15:18 LRN [id number]) OP-PT Subjective Patient Comments Patient Comments NEck is doing really well and the amount of mobility she has is pretty good and her mobility doesn't hinder her. She no longer wakes with pain. Sleeping well without meds. She has gotten a new pillow and is more aware of her positioning and posture. PT-OP-H Neuro Start: 05/01/21 17:08 Freq: Status: Active Protocol: Document 05/06/21 13:03 LRN (Rec: 05/06/21 13:47 LRN [id number]) Sensation Evaluation Gross Sensation Gross Sensation Right UE Impaired,Left LE Impaired Sensation Description Tingling Comments Summary Comments Raynaud's syndrome. Tingling in fingertips if carrying grocery bags. Deep Tendon Reflex & Clonus Assessment Deep Tendon Reflex Bilateral Brachioradialis Deep Tendon Reflex 2+ Normal Bilateral Tricep Deep Tendon Reflex 2+ Normal Bilateral Bicep Deep Tendon Reflex 1+ Diminished PT-OP-J Posture/Palpation/Skin Start: 05/01/21 17:08 Freq: Status: Active Protocol: Document 05/06/21 13:03 LRN (Rec: 05/06/21 13:47 LRN [id number]) Posture Evaluation Position Standing Head/C-Spine Posture Neutral Position T-Spine Posture Neutral L-Spine Posture Neutral Shoulder Posture (R) Rounded,(R) Forward,(L) Elevated Scapula Posture (L) Neutral,(R) Neutral Pelvis Posture Neutral Weight Distribution Balanced Knee Posture (L) Neutral,(R) Neutral Ankle/Foot Posture (L) Neutral,(R) Neutral Palpation Assessment Location Neck Palpation Location R UT, paraspinals and suboccipital. Palpation Findings Soft Tissue Tightness,Muscle Guarding,Tenderness PT-OP-K Range of Motion Start: 05/01/21 17:08 Freq: Status: Active Protocol: Document 08/29/21 14:45 LRN (Rec: 08/29/21 15:18 LRN [id number]) Cervical Spine Range of Motion Cervical Spine Active Degrees Testing Position Sitting Flexion 45 Extension 30 Rotation Left 52 Rotation Right 54 Lateral Flexion Left 22 Lateral Flexion Right 20 Comments After Stretching. PT-OP-M Strength Start: 05/01/21 17:08 Freq: Status: Active Protocol: Document 05/06/21 13:03 LRN (Rec: 05/06/21 13:47 LRN [id number]) Cervical Spine Strength Cervical Spine Manual Muscle Testing Comments Generally 5/5 Shoulder Strength Shoulder Manual Muscle Testing Right Comments Generally 5/5 Left Comments Generally 5/5 PT-OP-Q Treatments Start: 05/01/21 17:08 Freq: Status: Active Protocol: Document 08/29/21 14:45 LRN (Rec: 08/29/21 15:18 LRN [id number]) Therapeutic Exercises Sitting Exercises C. active Ext Sitting Exercise Name C. active extension Reps/Minutes 3' C. AROM Sitting Exercise Name C. AROM rotation (R>L) Side bilateral Reps/Minutes 6' Comments All C. AROM taken UT, lev scap stretch Sitting Exercise Name reviewed HEP Side bilateral Equipment Used opp UE gentle over pressure Reps/Minutes 30s x2 each Comments good form Standing Exercises Ys off wall Standing Exercise Name HEP Side bilateral Resistance AROM Equipment Used facing wall Reps/Minutes 1 sec hold x5 Comments cued x1 allow scap depression and elbows straight- good self corrections cervical TB: ext, SB Standing Exercise Name added to HEP- looped around head and anchored in door top head height Resistance TB #1 Reps/Minutes 3 sec hold x10 reps each direction Comments good CS alignment and performance PT-OP-R Modalities Start: 05/01/21 17:08 Freq: Status: Active Protocol: Document 07/24/21 09:04 LRN (Rec: 07/24/21 09:51 LRN [id number]) Hot Pack/Cold Pack Treatment Hot Pack Location Neck & Back Patient Tolerance Good Comments Pt in semi-reclined position with bolster under knees. PT-OP-T Assessment and Plan Start: 05/01/21 17:08 Freq: Status: Active Protocol: Document 08/29/21 14:45 LRN (Rec: 08/29/21 15:18 LRN [id number]) Physical Therapy Assessment Goals Three Impairment Neck pain rated 3/10 resulting in decreased function and diffulty sleeping Impairment NDI is 13 (20-39% impaired), UE Quickdash is 22.72 (20-39% impaired) Short Term Goal (STG) Decrease neck pain with pt will be able to improve sleep ability. 05/22/21: neck pain still wakes her up 3-4 x/night, challenging using pillows due to increase her heating up but uses fan/ open windows and light clothes. 05/26/21 & 06/09/21: stated pain still wakes her up 2-3x/night so gets up and stretches and helps her get back to sleep. 06/09/21: NDI score is 9, UE Quickdash score is 31.81. (07/24/21: Pt reporting no pain on waking the past 3 days ). STG Duration 06/27/21 (08/29/21: MET GOAL) Napkin Machine Operator Goal (LTG) Pt will demonstrate improved function per score of NDI of 9 or less or UE Quickdash score of 19 or less (indicating for both, 1-19% impaired). (06/09/21: NDI score 9, UE Quickdash score worse at 31.81 , 20-39% impaired) LTG Duration 08/08/21 (08/29/21: MET GOAL) Two Impairment Decreased neck mobility Impairment Initial C. AROM in deg's: flex 55, ext 20, rot L 50, R 52, SB L 20, R 28. Short Term Goal (STG) Pt will be educated and independent with a neck stretch HEP. 05/19/21: added seated UT/lev scap/scalene stretch, supine: chin nod/ DNF and scap retraction, wall posture, Self STMs theracane/ ballwall. 05/22/21: added open book. 05/26/21: good form and self sequence, only provided feedback looks correct stretching and open book. Good self use theracane. (06/02/21: Pt educated in proper sitting posture at computer). STG Duration 05/27/21 (06/02/21: MET GOAL) Napkin Machine Operator Goal (LTG) Improve neck mobility, with pt able to drive with greater ease when looking around ( turning of head). 05/26/21: progressing: pt reported able to look over shld better driving yesterday. 06/09/21: C AROM: ext 30 deg's , rot 50 deg's L, rot 47 deg's R) (06/12/21: C. AROM Before treatment: Ext: 27 deg's, Rot L: 52 deg's, Rot R: 58 deg's; SB L: 18 deg's, SB R: 20 deg 's.; After treatment: Ext: 35 deg's, Rot L: 58 deg's, Rot R : 56 deg's; SB L: 22 deg's, SB R: 20 deg's). (07/24/21: C. AROM @ start: Ext: 33; Rot 57 L, 58 R. AROM @ end: Ext 38; Rot: 53 L, 55 R) 08/11/21: GOAL MET: states is able to look over shoulder to see when driving now with no pain. LTG Duration 08/08/21 (08/11/21: GOAL MET) One Impairment Pt lacks appropriate self care HEP. Short Term Goal (STG) Pt will be educated in proper posture on computer and with reading 05/19/21: discussed posture/ alignment sleeping/ gardening. 05/26/21: progressin06/02/21: educated proper posture on computer. 06/09/21: Educ pt in proper posture for reading a book. STG Duration 05/27/21 (06/09/21: MET GOAL) Assisted Goal (LTG) Pt will be educated in a self care HEP of cervical stabilization ex's to manage her pain at a tolerable level. 05/26/21: progressing: incorporate stretching, initiated resisted rows/ shld ext for strengthening. 08/11/21: added CS TB strengthening: ext/ SB, Ys off wall [place]. LTG Duration 08/08/21 (08/29/21: MET GOAL) Assessment Summary Assessment Pt demonstrates improved symmetry of movement and she notes functional mobility without pain. Goals were met and pt is independent with her self care HEP. Pt is ready for discharge from therapy. Physical Therapy Plan Frequency and Duration Frequency of Treatment 2x/Week Plan of Care Start Date 07/15/21 Plan of Care End Date 09/10/21 Discharge Physical Therapy Discharge Reasons Goals Met Discharge Comments Thank you for your referral.
== END 2021-09-01 09:50 ==
LOC: PHYS 14:30
PROVIDERS: Family Provider Physician Assistant; PCP Family Medicine; Referring Provider Family Medicine; Visit Provider Family Medicine
DX: G44.209 Tension-type headache, unspecified, not intractable (principal); M54.2 Cervicalgia
CPT/HCPCS: 97014; 97110; 97140; 97162; 97535; G0283

== ENCOUNTER → 2021-09-19 07:45 | Outpatient (CLI) | payer MEDICARE, OTHER, SELFPAY ==
--- NOTE | 2021-09-19 07:48 | DI.RAD.S_ITS ---
PROCEDURE: XR SHOULDER RT MIN 2V INDICATIONS: rt shoulder pain after fall TECHNIQUE: 3 views of the shoulder were acquired. COMPARISON: None. FINDINGS: Bones: No fractures or dislocations. No suspicious bony lesions. There is joint space narrowing at the acromioclavicular joint. Mild degenerative changes present at the glenohumeral joint. Visualized ribs appear intact. Soft tissues: No suspicious soft tissue calcifications. IMPRESSION: Degenerative change. No acute radiographic findings. If pain persists, followup imaging in 5-7 days is recommended to exclude occult fracture. Dictated by: Gabriella Luna M.D. on 09/19/2021 at 8:05 Approved by: Gabriella Luna M.D. on 09/19/2021 at 8:07
== END ==
PROVIDERS: Family Provider Physician Assistant; PCP Family Medicine; Referring Provider Physician Assistant; Visit Provider Physician Assistant
DX: M25.511 Pain in right shoulder (principal); W19.XXXA Unspecified fall, initial encounter
CPT/HCPCS: 73030

== ENCOUNTER → 2021-10-14 13:28 | Outpatient (CLI) | payer MEDICARE, OTHER, SELFPAY ==
--- NOTE | 2021-10-14 | DI.MRI.S_ITS ---
PROCEDURE: MR SHOULDER RT WO CON INDICATIONS: RT SHOULDER PAIN/ROTATOR CUFF TENDONITIS TECHNIQUE: Noncontrast oblique coronal T2 fast spin echo with fat saturation, oblique sagittal T1 spin echo and T2 fast spin echo with fat saturation, axial T1 spin echo and T2 fast spin echo with fat saturation through the shoulder. COMPARISON: None. FINDINGS: Image quality: Excellent. Rotator cuff: Full-thickness rupture of distal supraspinatus and infraspinatus at their insertions on humeral head is seen with up to 2.6 cm medial retraction of torn tendon fibers to the level of acromioclavicular joint. Moderate grade intrasubstance partial-thickness tear involving superior to mid fibers of distal subscapularis is seen. Sagittal images demonstrate mild supraspinatus muscle atrophy. Bones and bursae: No bone marrow contusions or fractures. Moderate acromioclavicular joint osteoarthritic changes are seen with joint space narrowing and prominent marginal osteophyte formation depressing the musculotendinous junction of supraspinatus. Moderate glenohumeral joint osteoarthritic changes also seen. There is moderate to large amount of joint fluid and subacromial subdeltoid bursal fluid. Capsule and soft tissues: Signal abnormality and contour irregularity involving superior anterior labrum at 12 to 2 o'clock position is seen suggestive of superior tendinosis and moderate grade intrasubstance partial-thickness tear is seen. The rotator interval appears normal, without fibrosis. The coracohumeral ligament is normal in thickness. IMPRESSION: 1. Full-thickness rupture of distal supraspinatus and infraspinatus at their insertion on the humeral head with up to 2.6 cm medial retraction of torn tendon fibers to the level of acromioclavicular joint. Moderate grade intrasubstance partial-thickness tear involving superior to mid fibers of distal subscapularis. Mild supraspinatus muscle atrophy. 2. Moderate acromioclavicular joint and glenohumeral joint osteoarthritis. Moderate to large joint effusion and subacromial subdeltoid bursal fluid. 3. Suggestion of subtle superior anterior labral tear at 12 to 2 o'clock position. 4. Tendinosis and moderate grade intrasubstance partial-thickness tear involving proximal long head of biceps tendon. Dictated by: Declan Comer M.D. on 10/14/2021 at 15:44 Approved by: Declan Comer M.D. on 10/14/2021 at 15:47
== END ==
PROVIDERS: Family Provider Physician Assistant; PCP Family Medicine; Referring Provider Family Medicine; Visit Provider Family Medicine
DX: M75.121 Complete rotator cuff tear or rupture of right shoulder, not specified as traumatic (principal); M19.011 Primary osteoarthritis, right shoulder; S46.111A Strain of muscle, fascia and tendon of long head of biceps, right arm, initial encounter; M25.411 Effusion, right shoulder; M25.511 Pain in right shoulder
CPT/HCPCS: 73221

== ENCOUNTER → 2022-08-27 15:27 | Outpatient (CLI) | payer MEDICARE, OTHER, SELFPAY ==
[2022-08-27 17:31] LABS: Free T4, Direct Thyroxine 1.07 ng/dL (0.78-2.19)
[2022-08-27 17:44] LABS: Thyroid Stimulating Hormone 3.05 uIU/mL (0.47-4.68)
== END ==
PROVIDERS: Family Provider Family Medicine; PCP Family Medicine; Referring Provider Family Medicine; Visit Provider Family Medicine
DX: E05.90 Thyrotoxicosis, unspecified without thyrotoxic crisis or storm (principal); R79.89 Other specified abnormal findings of blood chemistry
CPT/HCPCS: 36415; 84439; 84443; 84481

== ENCOUNTER → 2022-09-29 10:48 | Outpatient (CLI) | payer MEDICARE, OTHER, SELFPAY ==
--- NOTE | 2022-09-29 | DI.MG.S_ITS ---
BILATERAL DIGITAL SCREENING MAMMOGRAM 3D/2D WITH CAD: 09/29/2022 CLINICAL: Routine screening. Family history of breast cancer. Comparison is made to exams dated: 03/10/2021 mammogram, 12/09/2018 mammogram, 11/27/2017 mammogram, and 09/24/2016 mammogram - [facility]. Both breasts are heterogeneously dense, which may obscure small masses (category c / 51-75% glandular tissue). Current study was also evaluated with a Computer Aided Detection (CAD) system. There are benign calcifications in both breasts. No significant masses, calcifications, or other findings are seen in either breast. There has been no significant interval change. IMPRESSION: BENIGN There is no mammographic evidence of malignancy. A 1 year screening mammogram is recommended. Based on the Tyrer Cuzick model (a risk assessment model) the patient's lifetime risk is 12.2% and her 10 year risk is 0.0%. According to the ACR, ACS, and NCCN guidelines, an annual breast MRI exam along with mammogram is recommended if the patient's lifetime risk is 20% or greater. This exam was interpreted at Station ID: [id number]. NOTE: For mammograms, a report in lay terms will be sent to the patient. Approximately 15% of breast malignancies will not be visualized mammographically. In the management of a palpable breast mass, a negative mammogram must not discourage biopsy of a clinically suspicious lesion. Electronically Signed By: Vijay smiley/bobbi:09/29/2022 15:38:32 letter sent: Normal Exam ACR BI-RADS Category 2: Benign Finding(s) 3342F
== END ==
PROVIDERS: Family Provider Family Medicine; PCP Family Medicine; Referring Provider Family Medicine; Visit Provider Family Medicine
DX: Z12.31 Encounter for screening mammogram for malignant neoplasm of breast (principal); Z80.3 Family history of malignant neoplasm of breast
CPT/HCPCS: 77063; 77067

== ENCOUNTER → 2023-01-12 09:34 | Outpatient (CLI) | payer MEDICARE, OTHER, SELFPAY ==
[2023-01-12 10:58] LABS: Add Manual Diff / Slide Review NO; Basophils Absolute Auto 100 /uL (0-100); Basophils Percent Auto 1.1 % (0-2); Eosinophils Absolute Auto 200 /uL (0-450); Eosinophils Percent Auto 2.6 % (2-4); Hematocrit 41.7 % (36-46); Hemoglobin 14.1 g/dL (12.0-16.0); Lymphocytes Absolute Auto 2000 /uL (1100-4500); Lymphocytes Percent Auto 29.8 % (25-40); Mean Corpuscular HGB Conc 33.8 % (30-36); Mean Corpuscular Hemoglobin 30.4 PG (26-34); Mean Corpuscular Volume 90.1 fL (80-100); Monocytes Absolute Auto 600 /uL (0-900); Monocytes Percent Auto 9.4 % (3-14); Neutrophils Absolute Auto 3800 /uL (1500-7000); Neutrophils Percent Auto 57.1 % (50-75); Platelet Count 233 X10^3/uL (150-400); Red Blood Cell Count 4.63 X10^6/uL (4.0-5.2); Red Cell Distribution Width 14.1 % (11.6-14.8); White Blood Cell Count 6.6 X10^3/uL (4.5-11.0)
[2023-01-12 11:22] LABS: Alanine Aminotransferase 22 IU/L (<35); Albumin 4.2 g/dL (3.5-5.0); Albumin Globulin Ratio 1.4 (1.0-2.8); Alkaline Phosphatase 110 U/L (38-126); Aspartate Aminotransferase 29 IU/L (14-36); BUN Creatinine Ratio 28.1 (6-22); Bilirubin Total 0.6 mg/dL (0.2-1.3); Blood Urea Nitrogen 16 mg/dL (7-17); Calcium 9.4 mg/dL (8.4-10.2); Carbon Dioxide 27 mmol/L (22-32); Chloride 101 mmol/L (98-107); Cholesterol 174 mg/dL (140-199); Estimated Glomerular Filt Rate > 60 mL/min (>60); Globulin 3.1 g/dL (1.7-4.1); Glucose 105 mg/dL (80-110); HDL Cholesterol 64 mg/dL (40-60); HEMOLYSIS 17 (0-50); LDL Cholesterol Calculated 99 mg/dL (<100); Potassium 4.7 mmol/L (3.4-5.1); Sodium 136 mmol/L (137-145); Total Protein 7.3 g/dL (6.3-8.2); Triglycerides 57 mg/dL (35-150)
[2023-01-12 11:39] LABS: Free T4, Direct Thyroxine 1.11 ng/dL (0.78-2.19)
[2023-01-12 11:53] LABS: Thyroid Stimulating Hormone 3.34 uIU/mL (0.47-4.68)
== END ==
PROVIDERS: Family Provider Family Medicine; PCP Family Medicine; Referring Provider Family Medicine; Visit Provider Family Medicine
DX: E78.00 Pure hypercholesterolemia, unspecified (principal); R79.89 Other specified abnormal findings of blood chemistry; F90.2 Attention-deficit hyperactivity disorder, combined type; M75.81 Other shoulder lesions, right shoulder; N95.2 Postmenopausal atrophic vaginitis
CPT/HCPCS: 36415; 80053; 80061; 84439; 84443; 85025

== ENCOUNTER → 2023-04-16 14:10 | Outpatient (CLI) | payer MEDICARE, OTHER, SELFPAY ==
--- NOTE | 2023-04-16 14:13 | DI.RAD.S_ITS ---
Bone Density Report Name: DMITRIY GRAY Age: 77 Sex: Female Ethnicity: White Date of : 1945 Indication: osteopenia; Referring Provider: JENNA MCDOWELL Study: Bone densitometry was performed. Exam Date: April 16, 2023 Accession number: [id number] Bone Density: Region BMD T-score Z-score Classification AP Spine(L1, L2, L4) 1.160 1.1 3.6 Normal Femoral Neck (Left) 0.708 -1.3 0.9 Osteopenia Total Hip (Left) 0.802 -1.1 0.7 Osteopenia Femoral Neck (Right) 0.663 -1.7 0.5 Osteopenia Total Hip (Right) 0.828 -0.9 1.0 Normal Total Hip Mean 0.815 -1.0 0.9 Normal World Health Organization criteria for BMD impression classify patients as: Normal (T-score at or above -1.0), Osteopenia (T-score between -1.0 and -2.5), or Osteoporosis (T-score at or below -2.5). 10-year Fracture Risk(1): Major Osteoporotic Fracture 13% Hip Fracture 2.8% Reported Risk Factors: [place] (), Neck BMD=0.663, BMI=27.8 (1) FRAX(R) Version 3.08. Fracture probability calculated for an untreated patient. Fracture probability may be lower if the patient has received treatment. Previous Exams: -- Region Exam Age BMD T-score BMD Change BMD Change Date g/cm2 vs Baseline vs Previous -- AP Spine (L1-L2,L4) 04/16/2023 77 1.160 1.1 0.000 (0.0%)# 0.000 (0.0%)# 03/17/2021 75 1.161 1.2 Total Hip(Left) 04/16/2023 77 0.802 -1.1 0.001 (0.1%)# 0.001 (0.1%)# 03/17/2021 75 0.802 -1.1 Total Hip(Right) 04/16/2023 77 0.828 -0.9 -0.012 (-1.4%)# -0.012 (-1.4%)# 03/17/2021 75 0.840 -0.8 -- *Denotes significance at 95% confidence level, LSC for AP Spine = 0.022 g/cm2, LSC for Total Hip = 0.027 g/cm2 # Denotes dissimilar scan types or analysis methods Impression: The patient has low bone mass, based on the Right Femoral Neck T-score. The patient has an estimated ten-year risk of hip fracture of 2.8% and an estimated ten-year risk of major fracture of 13%, based on the WHO FRAX algorithm. No significant bone loss was observed. Discussion: BONE DENSITY IS LOW AT ONE OR MORE SKELETAL SITES. This patient's lowest T-score is low at one or more skeletal sites. It meets the World Health Organization's (WHO) criteria for low bone mass (T-score between -1.0 and -2.5). The patient's 10-year risk of fracture as calculated by FRAX is less than the threshold where pharmacological therapy is recommended by the National Osteoporosis Foundation (NOF). However, all treatment decisions require clinical judgment and consideration of individual patient factors, including patient preferences, comorbidities, previous drug use, risk factors not captured in the FRAX model (e.g., frailty, falls, vitamin D deficiency, increased bone turnover, interval significant decline in bone density) and possible under or overestimation of fracture risk by FRAX. The patient should follow a healthful lifestyle (good nutrition with adequate calcium and vitamin D, and appropriate weight-bearing exercise). Follow-Up: Consider repeating this study in 2 to 3 years to reassess this patient's status, or sooner if there is some new clinical indication. Reported by: [facility] MEETA FAULKNER M.D. on 04/16/2023 2:47:00 PM.
== END ==
PROVIDERS: Family Provider Family Medicine; PCP Family Medicine; Referring Provider Family Medicine; Visit Provider Family Medicine
DX: M85.89 Other specified disorders of bone density and structure, multiple sites (principal)
CPT/HCPCS: 77080

== ENCOUNTER → 2023-10-07 | Outpatient (CLI) | payer MEDICARE, OTHER, SELFPAY ==
--- NOTE | 2023-10-07 16:12 | DI.MRI.S_ITS ---
PROCEDURE: MR SHOULDER RT WO CON INDICATIONS: ROTATOR CUFF TENDINITIS TECHNIQUE: Noncontrast oblique coronal T2 fast spin echo with fat saturation, oblique sagittal T1 spin echo and T2 fast spin echo with fat saturation, axial T1 spin echo and T2 fast spin echo with fat saturation through the shoulder. COMPARISON: [facility], MR, MR SHOULDER RT WO CON, 10/14/2021, 14:19. FINDINGS: Image quality: Excellent. Rotator cuff: There is full-thickness rupture involving posterior fibers of distal supraspinatus and anterior to mid fibers of distal infraspinatus at their insertion on humeral head with up to 3.5 cm medial retraction of torn tendon fibers and a fluid-filled gap measures 1.6 cm in AP dimension. Low-grade articular surface partial-thickness tear involving rest of the supraspinatus and infraspinatus tendons at their insertions on the humeral head is seen. Low-grade intrasubstance partial-thickness tear involving distal subscapularis is noted. Sagittal images demonstrate moderate to severe infraspinatus muscle atrophy and moderate supraspinatus muscle atrophy. Bones and bursae: There is slight superior migration of humeral head in relation to glenoid. No bone marrow contusions or fractures. Moderate acromioclavicular joint osteoarthritic changes are seen with joint space narrowing and downward osteophyte formation depressing the musculotendinous junction of supraspinatus. Type 1 acromion, without an os acromiale. Moderate joint effusion and subacromial subdeltoid bursal fluid is seen, no loose bodies. Capsule and soft tissues: Labrum is grossly intact. The long head of the biceps tendon appears thickened at the level of humeral head. The rotator interval appears normal, without fibrosis. The coracohumeral ligament is normal in thickness. IMPRESSION: 1. Full-thickness rupture involving posterior fibers of distal supraspinatus and anterior to mid fibers of distal infraspinatus at their insertions on humeral head with up to 3.5 cm medial retraction of torn tendon fibers and a fluid-filled gap measures 1.6 cm in AP dimension. Low-grade articular surface partial-thickness tear involving rest of the supraspinatus and infraspinatus. 2. Low-grade intrasubstance partial-thickness tear involving distal subscapularis. 3. Moderate supraspinatus muscle atrophy and moderate to severe infraspinatus muscle atrophy. 4. Moderate acromioclavicular joint osteoarthritis. Superior migration of humeral head in relation to glenoid. No acute fracture or dislocation. Moderate joint effusion and subacromial subdeltoid bursal fluid. No loose bodies. 5. No gross labral tear. 6. Proximal long head of biceps tendinosis. Dictated by: Declan Comer M.D. on 10/08/2023 at 10:25 Approved by: Declan Comer M.D. on 10/08/2023 at 10:46
--- NOTE | 2023-10-07 16:12 | DI.MRI.S_ITS ---
PROCEDURE: MR SHOULDER LT WO CON INDICATIONS: ROTATOR CUFF TENDINITIS TECHNIQUE: Noncontrast oblique coronal T2 fast spin echo with fat saturation, oblique sagittal T1 spin echo and T2 fast spin echo with fat saturation, axial T1 spin echo and T2 fast spin echo with fat saturation through the shoulder. COMPARISON: [facility], MR, MR SHOULDER RT WO CON, 10/07/2023, 16:23. FINDINGS: Image quality: Excellent. Rotator cuff: There is full-thickness rupture of distal supraspinatus at its insertion on the humeral head with up to 3.3 cm medial retraction of torn tendon fibers to the level of acromioclavicular joint. Moderate grade articular surface partial-thickness tear involving distal infraspinatus at its insertion on the humeral head is seen extending to musculotendinous junction. Focal full-thickness perforation involving anterior fibers of distal supraspinatus near its insertion on the humeral head is likely present. Distal subscapularis tendinosis and low-grade intrasubstance partial-thickness tear is seen. Sagittal images demonstrate moderate supraspinatus muscle atrophy. Bones and bursae: Slight superior migration of humeral head in relation to glenoid is seen. No bone marrow contusions or fractures. Moderate acromioclavicular joint osteoarthritic changes are seen with joint space narrowing, subchondral sclerosis and downward osteophyte formation. Mild glenohumeral joint osteoarthritic changes also seen. Type 1 acromion, without an os acromiale. There is moderate amount of joint fluid and subacromial subdeltoid bursal fluid, no gross loose bodies. Capsule and soft tissues: Labrum is grossly intact. The long head of the biceps tendon appears mildly thickened intra-articularly. The rotator interval appears normal, without fibrosis. The coracohumeral ligament is normal in thickness. IMPRESSION: 1. Full-thickness rupture of distal supraspinatus at its insertion on the humeral head with up to 3.3 cm medial retraction of torn tendon fibers to the level of acromioclavicular joint. Moderate supraspinatus muscle atrophy. 2. Moderate grade articular surface partial-thickness tear involving distal infraspinatus extending to musculotendinous junction with focal full-thickness perforation involving anterior fibers of distal supraspinatus near its insertion on the humeral head. Distal subscapularis tendinosis and low-grade intrasubstance partial-thickness tear. 3. Moderate acromioclavicular joint osteoarthritis and mild glenohumeral joint osteoarthritis. No fracture or dislocation. Mild superior migration of humeral head in relation to glenoid. Moderate amount of joint effusion and subacromial subdeltoid bursal fluid. No loose bodies. 4. No evidence of focal labral tear. 5. Proximal intra-articular portion of long head of biceps tendinosis. Dictated by: Declan Comer M.D. on 10/08/2023 at 10:46 Approved by: Declan Comer M.D. on 10/08/2023 at 10:52
== END ==
PROVIDERS: Family Provider Family Medicine; PCP Family Medicine; Referring Provider Family Medicine; Visit Provider Family Medicine
DX: M75.122 Complete rotator cuff tear or rupture of left shoulder, not specified as traumatic (principal); M75.121 Complete rotator cuff tear or rupture of right shoulder, not specified as traumatic; M19.011 Primary osteoarthritis, right shoulder; M19.012 Primary osteoarthritis, left shoulder; M25.412 Effusion, left shoulder; M25.411 Effusion, right shoulder; M75.80 Other shoulder lesions, unspecified shoulder
CPT/HCPCS: 73221

== ENCOUNTER → 2023-11-02 10:00 | Outpatient (CLI) | payer MEDICARE, OTHER, SELFPAY ==
--- NOTE | 2023-11-02 10:01 | DI.MG.S_ITS ---
BILATERAL DIGITAL SCREENING MAMMOGRAM 3D/2D WITH CAD: 11/02/2023 CLINICAL: Routine screening. Family history of breast cancer. Comparison is made to exams dated: 09/29/2022 mammogram, 03/10/2021 mammogram, and 12/09/2018 mammogram - [facility]. Both breasts are heterogeneously dense, which may obscure small masses (category c / 51-75% glandular tissue). Current study was also evaluated with a Computer Aided Detection (CAD) system. There is an oval focal asymmetry with an obscured margin in the left breast at 1 o'clock posterior depth. This is more prominent. No other significant masses, calcifications, or other findings are seen in either breast. IMPRESSION: INCOMPLETE: NEEDS ADDITIONAL IMAGING EVALUATION The oval focal asymmetry in the left breast is indeterminate. Additional views with possible ultrasound are recommended. Based on the Tyrer Cuzick model (a risk assessment model) the patient's lifetime risk is 11.1% and her 10 year risk is 0.0%. According to the ACR, ACS, and NCCN guidelines, an annual breast MRI exam along with mammogram is recommended if the patient's lifetime risk is 20% or greater. This exam was interpreted at Station ID: [id number]. NOTE: For mammograms, a report in lay terms will be sent to the patient. Approximately 15% of breast malignancies will not be visualized mammographically. In the management of a palpable breast mass, a negative mammogram must not discourage biopsy of a clinically suspicious lesion. Electronically Signed By: Vijay Brown M.D. slc/:11/02/2023 12:15:09 letter sent: Additional Imaging Needed ACR BI-RADS Category 0: Incomplete [id number]
== END ==
LOC: MAMMO 10:00
PROVIDERS: Family Provider Family Medicine; PCP Family Medicine; Referring Provider Family Medicine; Visit Provider Family Medicine
DX: Z12.31 Encounter for screening mammogram for malignant neoplasm of breast (principal); Z80.3 Family history of malignant neoplasm of breast; R92.333 Mammographic heterogeneous density, bilateral breasts
CPT/HCPCS: 77063; 77067

== ENCOUNTER → 2023-11-06 13:55 | Outpatient (CLI) | payer MEDICARE, OTHER, SELFPAY ==
--- NOTE | 2023-11-06 13:56 | DI.CT.S_ITS ---
PROCEDURE: CT UE LT WO CON INDICATIONS: STRAIN OF MUSCLE,TENDON OF left SHOULDER TECHNIQUE: Noncontrast 0.75 mm thick sections acquired from the acromioclavicular joint to the inferior scapula, with coronal and sagittal reformatting. COMPARISON: [facility] [place], [place], XR SHOULDER 2+ VIEWS BILATERAL, 11/01/2023, 14:32. FINDINGS: Image quality: Excellent. Bones: Moderate degenerative changes of the acromioclavicular joint with inferior projecting osteophyte. No os acromiale. No significant degenerative change of the glenohumeral joint. Small linear radiodensity about the superior aspect of the glenohumeral articulation, likely representing a small intra-articular body. Chondrocalcinosis of the glenohumeral joint, representing CPPD arthropathy. No acute fracture or dislocation of the left shoulder. Soft tissues: Moderate glenohumeral effusion. Mild subcoracoid bursitis. Mild calcification of the aortic arch. Visualized left lung is unremarkable. No significant fatty atrophy of the rotator cuff musculature. IMPRESSION: 1. Moderate degenerative changes of the acromioclavicular joint. 2. Chondrocalcinosis of the glenohumeral joint with findings suggestive of small intra-articular body. 3. No significant fatty atrophy of the rotator cuff musculature. Further evaluation with MRI shoulder can be considered if clinically indicated. Dictated by: Jennifer Costa M.D. on 11/09/2023 at 12:27 Approved by: Jennifer Costa M.D. on 11/09/2023 at 12:33
== END ==
PROVIDERS: Family Provider Family Medicine; PCP Family Medicine; Referring Provider Orthopaedic Surgery; Visit Provider Orthopaedic Surgery
DX: M11.212 Other chondrocalcinosis, left shoulder (principal); S46.012A Strain of muscle(s) and tendon(s) of the rotator cuff of left shoulder, initial encounter
CPT/HCPCS: 73200; Q9967

== ENCOUNTER → 2023-11-09 12:00 | Outpatient (CLI) | payer MEDICARE, OTHER, SELFPAY ==
--- NOTE | 2023-11-09 12:03 | EKG_ITS ---
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
[2023-11-09 13:05] LABS: Add Manual Diff / Slide Review NO; Basophils Absolute Auto 0 /uL (0-100); Basophils Percent Auto 0.6 % (0-2); Eosinophils Absolute Auto 100 /uL (0-450); Eosinophils Percent Auto 1.5 % (2-4); Hematocrit 39.1 % (36-46); Hemoglobin 13.1 g/dL (12.0-16.0); Lymphocytes Absolute Auto 2100 /uL (1100-4500); Lymphocytes Percent Auto 32.1 % (25-40); Mean Corpuscular HGB Conc 33.7 % (30-36); Mean Corpuscular Hemoglobin 30.8 PG (26-34); Mean Corpuscular Volume 91.7 fL (80-100); Monocytes Absolute Auto 600 /uL (0-900); Monocytes Percent Auto 9.4 % (3-14); Neutrophils Absolute Auto 3800 /uL (1500-7000); Neutrophils Percent Auto 56.4 % (50-75); Platelet Count 277 X10^3/uL (150-400); Red Blood Cell Count 4.26 X10^6/uL (4.0-5.2); Red Cell Distribution Width 14.1 % (11.6-14.8); White Blood Cell Count 6.7 X10^3/uL (4.5-11.0)
[2023-11-09 13:14] LABS: Appearance Urine UA CLEAR; Bilirubin Urine UA NEGATIVE (NEGATIVE); Color Urine UA YELLOW; Glucose Urine UA NEGATIVE (Negative); Ketones Urine UA NEGATIVE (NEGATIVE); Leukocyte Esterase Urine UA NEGATIVE (NEGATIVE); Nitrite Urine UA NEGATIVE (Negative); Occult Blood Urine UA NEGATIVE (Negative); Protein Urine UA NEGATIVE (Negative); Urobilinogen Urine UA 0.2 E.U./dL (0.2)
[2023-11-09 13:16] LABS: pH Urine UA 6.5 (4.5-8.0)
[2023-11-09 13:18] LABS: Bacteria Urine None Seen; RBC Urine None Seen (0-5/HPF); Squamous Epithelial Cell Urine None Seen (0-5/HPF); Urine Volume 10mL (spun); WBC Urine None Seen (0-5/HPF)
[2023-11-09 13:19] LABS: Culture Indicated Urine Cult Not Indicated
[2023-11-09 13:36] LABS: BUN Creatinine Ratio 22.7 (6-22); Blood Urea Nitrogen 15 mg/dL (7-17); Calcium 9.7 mg/dL (8.4-10.2); Carbon Dioxide 27 mmol/L (22-32); Chloride 104 mmol/L (98-107); Estimated Glomerular Filt Rate > 60 mL/min (>60); Glucose 101 mg/dL (80-110); HEMOLYSIS < 15 (0-50); Potassium 4.4 mmol/L (3.4-5.1); Sodium 136 mmol/L (137-145)
== END ==
PROVIDERS: Family Provider Family Medicine; PCP Family Medicine; Referring Provider Orthopaedic Surgery; Visit Provider Orthopaedic Surgery
DX: Z01.818 Encounter for other preprocedural examination (principal); N39.0 Urinary tract infection, site not specified; Z01.812 Encounter for preprocedural laboratory examination
CPT/HCPCS: 36415; 80048; 81001; 85025; 93005

== ENCOUNTER 2023-11-26 12:00 | Outpatient (RCR) | payer MEDICARE, OTHER, SELFPAY ==
--- NOTE | 2023-09-30 12:45 | PT.OPPOC ---
Physical, Occupational & Speech Therapy At [facility] Current Diagnoses Pain in right shoulder (09/30/23) Pain in left shoulder (09/30/23) Stiffness of right shoulder, not elsewhere classified (09/30/23) Stiffness of left shoulder, not elsewhere classified (09/30/23) Visit Care Team Role Provider Type Natalie Garcia MD Family Provider Physician Primary Care Provider Specialty: [facility] Practice Address: [address] [place] [address] [place], [address] Email: [email or web address] Reddy Land MD Attending Provider Physician Referring Provider Specialty: [facility] Address: [address] [place] [address], [address] Email: [email or web address] Plan Of Care PT-OP-B Current Condition Start: 09/30/23 16:01 Freq: Status: Active Protocol: Document 09/30/23 12:00 DCW (Rec: 10/01/23 08:57 DCW [id number]) Current Condition History of Current Condition Onset Date Jul, 2023 Current Complaints Bilateral shoulder pain and decreased ROM History of Current Condition Pt is a 78 year old female presenting to skilled therapy due to bilateral shoulder injuries. Pt's injuries were caused by two different events a week apart. Pt reports that two months ago, she was lifting a wheelchair into her car with her right arm, felt a pop, and immediately began experiencing fairly significant pain and limited mobility of her right arm. One week later, she was visiting her children/grandchildren out of state, tripped over her grandson's Lego box, and fell directly on her left arm. One again, experiencing immediate pain and limited mobility. Did receive an x-ray at the time, which was unremarkable. Pt reports she is struggling to do anything overhead or reaching back, including washing/styling her hair, washing her back, or hooking her bra. Arms hurt when driving, and notes increased pain even when trying to hold her phone more than a few minutes. PT-OP-T Assessment and Plan Start: 09/30/23 16:01 Freq: Status: Active Protocol: Document 09/30/23 12:00 DCW (Rec: 09/30/23 18:00 DCW [id number]) Physical Therapy Assessment Rehab Potential Rehabilitation Potential Fair Evaluation Complexity Number of Personal Factors/Comorbidities 3 or More Number of Body Systems Impaired 4 or More Clinical Presentation at Evaluation Unstable Impairments Impairments Functional Activities, Functional Mobility,Pain,ROM, Soft Tissue Mobility,Strength, Tone Goals One Impairment Pt does not have an appropriate home exercise program Short Term Goal (STG) Pt to be independent and compliant with an appropriate HEP STG Duration 10/31/23 Three Impairment Shoulder pain when holding her phone more than a few minutes Skilled Nursing Goal (LTG) Pt to report shoulder pain of 3/10 at worst in order to reduce limitations in ability to hold objects LTG Duration 12/01/23 Two Impairment Pt struggles to style her hair due to limitations in bilateral shoulder ROM Impairment . Internal Affairs Commander Goal (LTG) Pt to increase active shoulder abduction bilaterally to >120 ? in order to improve ability to wash and style hair without pain LTG Duration 12/01/23 Assessment Summary Assessment Pt presents with complex bilateral shoulder injuries which occurred completely independent of each other. Right shoulder MICHELLE was a popping when lifting, immediate limitations in mobility and pain. Pt exhibits positive lift-off, passive ER , and large mass of high muscle tone along lateral edge of scapula, which may be indicative of a subscaularis injury. The left shoulder MICHELLE was due to a trip and fall onto her left shoulder, presents with strongly positive apprehension and labral grind tests, tenderness with LH biceps tendon palpation, positive belly press. Sings and symptoms consistent with potential labral injury. Would strongly recommend bilateral axial imaging in order to rule in/ out structural damage or soft tissue injury. In the mean time, pt will likely benefit from skilled therapeutic intervention in order to improve mobility, improve strength, decrease risk of adhesive capsulitis, and improve GH joint stability. Physical Therapy Plan Frequency and Duration Frequency of Treatment 2x/Week Plan of Care Start Date 09/30/23 Plan of Care End Date 12/01/23 Therapeutic Interventions Therapeutic Interventions Home Exercise Program,Joint Mobilizations,Manual Therapy, Neuromuscular Re-education, Patient/Caregiver Education, Self-Care/Home Management,Soft Tissue Mobilization, Therapeutic Activities, Therapeutic Exercises Next Visit Focus/Plan Next Note Type Treatment Note Next Visit Plan Shoulder mobility, gentle strengthening, joint stabilization Plan of Care Dates Plan of Care Start Date 09/30/23 Plan of Care End Date 12/01/23 Electronically Signed by: Vince Amin, CARLOS 10/01/23 0859 If you are in agreement with this Plan of Care, please return a signed and dated copy. I have reviewed this Plan of Care and certify that the skilled therapy services above are required to meet the patient?s needs. Physician Signature Date Printed Name and Credentials Clinical Instructor Signature Printed Name and Credentials
--- NOTE | 2023-09-30 12:45 | PT.OIE ---
Current Diagnoses Pain in right shoulder (09/30/23) Pain in left shoulder (09/30/23) Stiffness of right shoulder, not elsewhere classified (09/30/23) Stiffness of left shoulder, not elsewhere classified (09/30/23) Visit Care Team Role Provider Type Natalie Garcia MD Family Provider Physician Primary Care Provider Specialty: [facility] Address: [facility] [place], [address] Email: [email or web address] Reddy Land MD Attending Provider Physician Referring Provider Specialty: [facility] Address: [address] [place] [address], [address] Email: [email or web address] Physical Therapy Initial Evaluation PT-OP-A Visit Information Start: 09/30/23 16:01 Freq: Status: Active Protocol: Document 09/30/23 12:00 DCW (Rec: 09/30/23 16:02 DCW [id number]) Out-Patient Physical Therapy Visit Information Visit Information Visit Type Initial Evaluation Visit Start Time 12:00 Visit Stop Time 12:45 Visit Number 1 Number of SHIPFITTER HELPER Visits 0 Evaluation Information Evaluation Date 09/30/23 PT-OP-B Current Condition Start: 09/30/23 16:01 Freq: Status: Active Protocol: Document 09/30/23 12:00 DCW (Rec: 10/01/23 08:57 DC [id number]) Current Condition History of Current Condition Onset Date Jul, 2023 Current Complaints Bilateral shoulder pain and decreased ROM History of Current Condition Pt is a 78 year old female presenting to skilled therapy due to bilateral shoulder injuries. Pt's injuries were caused by two different events a week apart. Pt reports that two months ago, she was lifting a wheelchair into her car with her right arm, felt a pop, and immediately began experiencing fairly significant pain and limited mobility of her right arm. One week later, she was visiting her children/grandchildren out of state, tripped over her grandson's Lego box, and fell directly on her left arm. One again, experiencing immediate pain and limited mobility. Did receive an x-ray at the time, which was unremarkable. Pt reports she is struggling to do anything overhead or reaching back, including washing/styling her hair, washing her back, or hooking her bra. Arms hurt when driving, and notes increased pain even when trying to hold her phone more than a few minutes. PT-OP-C Subjective Start: 09/30/23 16:01 Freq: Status: Active Protocol: Document 09/30/23 12:00 DCW (Rec: 10/01/23 08:46 DCW [id number]) OP-PT Subjective Patient Comments Patient Comments It was just a rought week when all this happened. Patient Questionnaires Quick Dash- Upper Extremity Quick Dash UE Score 77.27% Quick Dash UE Impairment 60 to 79% Impaired (Score 60- 79) PT-OP-E Functional Tests Start: 09/30/23 16:01 Freq: Status: Active Protocol: Document 09/30/23 12:00 DCW (Rec: 10/01/23 08:46 DCW [id number]) Functional Tests Apley's Scratch Test Action 1- Left Anterior opposite shoulder Action 1- Right Posterior opposite shoulder Action 2- Left Occipital Action 2- Right C6 Action 3- Left T12 Action 3- Right T10 PT-OP-F Manual Assessment Start: 09/30/23 16:01 Freq: Status: Active Protocol: Document 09/30/23 12:00 DCW (Rec: 10/01/23 08:46 DCW [id number]) Manual Assessments Soft Tissue Assessment Soft Tissue Mobility Assessment Severe tone of R subscapularis along lateral edge of scapula PT-OP-K Range of Motion Start: 09/30/23 16:01 Freq: Status: Active Protocol: Document 09/30/23 12:00 DCW (Rec: 10/01/23 08:46 DCW [id number]) Shoulder Goniometric Range of Motion Shoulder Right Passive Testing Position Supine Flexion 160 Abduction 180 External Rotation at 0 degrees Abduction 36 Right Active Testing Position Sitting Flexion 76 Abduction 88 External Rotation at 0 degrees Abduction 31 Internal Rotation Behind Back (text) T10 Left Passive Testing Position Supine Flexion 128 Abduction 52 External Rotation at 0 degrees Abduction 50 Left Active Testing Position Sitting Flexion 78 Abduction 75 External Rotation at 0 degrees Abduction 42 Internal Rotation Behind Back (text) T12 PT-OP-L Special Tests Start: 09/30/23 16:01 Freq: Status: Active Protocol: Document 09/30/23 12:00 DCW (Rec: 10/01/23 08:46 [facility] [id number]) Special Tests Shoulder Special Tests Speed's Biceps Test Results Positive L Passive ER Rotator Cuff Test Results Positive R Lift-Off Rotator Cuff Test Results Positive B Mast Tolu Impingement Test Results Negative Grind Labrum Test Results Positive L Empty Can Test Results Positive L Drop Arm Rotator Cuff Test Results Negative Belly Press Test Results Positive B Apprehension Test Test Results Positive L PT-OP-M Strength Start: 09/30/23 16:01 Freq: Status: Active Protocol: Document 09/30/23 12:00 DCW (Rec: 10/01/23 08:46 [facility] [id number]) Shoulder Strength Shoulder Manual Muscle Testing Right Flexion 2 Poor Abduction (C5) 2 Poor Internal Rotation 2- Poor- Horizontal Abduction 3- Fair- Left Flexion 2 Poor Abduction (C5) 2 Poor External Rotation 3- Fair- Internal Rotation 3- Fair- PT-OP-T Assessment and Plan Start: 09/30/23 16:01 Freq: Status: Active Protocol: Document 09/30/23 12:00 DCW (Rec: 09/30/23 18:00 [facility] [id number]) Physical Therapy Assessment Rehab Potential Rehabilitation Potential Fair Evaluation Complexity Number of Personal Factors/Comorbidities 3 or More Number of Body Systems Impaired 4 or More Clinical Presentation at Evaluation Unstable Impairments Impairments Functional Activities, Functional Mobility,Pain,ROM, Soft Tissue Mobility,Strength, Tone Goals One Impairment Pt does not have an appropriate home exercise program Short Term Goal (STG) Pt to be independent and compliant with an appropriate HEP STG Duration 10/31/23 Three Impairment Shoulder pain when holding her phone more than a few minutes Custodial Goal (LTG) Pt to report shoulder pain of 3/10 at worst in order to reduce limitations in ability to hold objects LTG Duration 12/01/23 Two Impairment Pt struggles to style her hair due to limitations in bilateral shoulder ROM Impairment . Erp Implementation Consultant Goal (LTG) Pt to increase active shoulder abduction bilaterally to >120 ? in order to improve ability to wash and style hair without pain LTG Duration 12/01/23 Assessment Summary Assessment Pt presents with complex bilateral shoulder injuries which occurred completely independent of each other. Right shoulder MICHELLE was a popping when lifting, immediate limitations in mobility and pain. Pt exhibits positive lift-off, passive ER , and large mass of high muscle tone along lateral edge of scapula, which may be indicative of a subscaularis injury. The left shoulder MICHELLE was due to a trip and fall onto her left shoulder, presents with strongly positive apprehension and labral grind tests, tenderness with LH biceps tendon palpation, positive belly press. Sings and symptoms consistent with potential labral injury. Would strongly recommend bilateral axial imaging in order to rule in/ out structural damage or soft tissue injury. In the mean time, pt will likely benefit from skilled therapeutic intervention in order to improve mobility, improve strength, decrease risk of adhesive capsulitis, and improve GH joint stability. Physical Therapy Plan Frequency and Duration Frequency of Treatment 2x/Week Plan of Care Start Date 09/30/23 Plan of Care End Date 12/01/23 Therapeutic Interventions Therapeutic Interventions Home Exercise Program,Joint Mobilizations,Manual Therapy, Neuromuscular Re-education, Patient/Caregiver Education, Self-Care/Home Management,Soft Tissue Mobilization, Therapeutic Activities, Therapeutic Exercises Next Visit Focus/Plan Next Note Type Treatment Note Next Visit Plan Shoulder mobility, gentle strengthening, joint stabilization
--- NOTE | 2023-10-04 12:44 | PT.OTN ---
Current Diagnoses Pain in right shoulder (10/04/23) Pain in left shoulder (10/04/23) Stiffness of right shoulder, not elsewhere classified (10/04/23) Stiffness of left shoulder, not elsewhere classified (10/04/23) Physical Therapy Treatment Note PT-OP-A Visit Information Start: 09/30/23 16:01 Freq: Status: Active Protocol: Document 10/04/23 12:00 DCW (Rec: 10/04/23 12:44 DCW [id number]) Out-Patient Physical Therapy Visit Information Visit Information Visit Type Treatment Note Visit Start Time 12:00 Visit Stop Time 12:45 Visit Number 2 Number of SPRING FITTER Visits 0 Evaluation Information Evaluation Date 09/30/23 PT-OP-B Current Condition Start: 09/30/23 16:01 Freq: Status: Active Protocol: Document 09/30/23 12:00 DCW (Rec: 10/01/23 08:57 DCW [id number]) Current Condition History of Current Condition Onset Date Jul, 2023 Current Complaints Bilateral shoulder pain and decreased ROM History of Current Condition Pt is a 78 year old female presenting to skilled therapy due to bilateral shoulder injuries. Pt's injuries were caused by two different events a week apart. Pt reports that two months ago, she was lifting a wheelchair into her car with her right arm, felt a pop, and immediately began experiencing fairly significant pain and limited mobility of her right arm. One week later, she was visiting her children/grandchildren out of state, tripped over her grandson's Lego box, and fell directly on her left arm. One again, experiencing immediate pain and limited mobility. Did receive an x-ray at the time, which was unremarkable. Pt reports she is struggling to do anything overhead or reaching back, including washing/styling her hair, washing her back, or hooking her bra. Arms hurt when driving, and notes increased pain even when trying to hold her phone more than a few minutes. PT-OP-C Subjective Start: 09/30/23 16:01 Freq: Status: Active Protocol: Document 10/04/23 12:00 DCW (Rec: 10/04/23 12:44 DCW [id number]) OP-PT Subjective Patient Comments Patient Comments Pt notes that right before she came back from the waiting room, her appointment with her PCP later this afternoon got canceled PT-OP-E Functional Tests Start: 09/30/23 16:01 Freq: Status: Active Protocol: Document 09/30/23 12:00 DCW (Rec: 10/01/23 08:46 DCW [id number]) Functional Tests Apley's Scratch Test Action 1- Left Anterior opposite shoulder Action 1- Right Posterior opposite shoulder Action 2- Left Occipital Action 2- Right C6 Action 3- Left T12 Action 3- Right T10 PT-OP-F Manual Assessment Start: 09/30/23 16:01 Freq: Status: Active Protocol: Document 09/30/23 12:00 DCW (Rec: 10/01/23 08:46 DCW [id number]) Manual Assessments Soft Tissue Assessment Soft Tissue Mobility Assessment Severe tone of R subscapularis along lateral edge of scapula PT-OP-K Range of Motion Start: 09/30/23 16:01 Freq: Status: Active Protocol: Document 09/30/23 12:00 DCW (Rec: 10/01/23 08:46 DCW [id number]) Shoulder Goniometric Range of Motion Shoulder Right Passive Testing Position Supine Flexion 160 Abduction 180 External Rotation at 0 degrees Abduction 36 Right Active Testing Position Sitting Flexion 76 Abduction 88 External Rotation at 0 degrees Abduction 31 Internal Rotation Behind Back (text) T10 Left Passive Testing Position Supine Flexion 128 Abduction 52 External Rotation at 0 degrees Abduction 50 Left Active Testing Position Sitting Flexion 78 Abduction 75 External Rotation at 0 degrees Abduction 42 Internal Rotation Behind Back (text) T12 PT-OP-L Special Tests Start: 09/30/23 16:01 Freq: Status: Active Protocol: Document 09/30/23 12:00 DCW (Rec: 10/01/23 08:46 DCW [id number]) Special Tests Shoulder Special Tests Speed's Biceps Test Results Positive L Passive ER Rotator Cuff Test Results Positive R Lift-Off Rotator Cuff Test Results Positive B Mast Tolu Impingement Test Results Negative Grind Labrum Test Results Positive L Empty Can Test Results Positive L Drop Arm Rotator Cuff Test Results Negative Belly Press Test Results Positive B Apprehension Test Test Results Positive L PT-OP-M Strength Start: 09/30/23 16:01 Freq: Status: Active Protocol: Document 09/30/23 12:00 DCW (Rec: 10/01/23 08:46 DCW [id number]) Shoulder Strength Shoulder Manual Muscle Testing Right Flexion 2 Poor Abduction (C5) 2 Poor Internal Rotation 2- Poor- Horizontal Abduction 3- Fair- Left Flexion 2 Poor Abduction (C5) 2 Poor External Rotation 3- Fair- Internal Rotation 3- Fair- PT-OP-Q Treatments Start: 09/30/23 16:01 Freq: Status: Active Protocol: Document 10/04/23 12:00 DCW (Rec: 10/04/23 12:44 DCW [id number]) Cardio Equipment Upper Body Ergometer (UBE) Duration (Minutes) 5 RPM 60 Seat Position 9 Height 2.5 Therapeutic Exercises Supine Exercises Horizontal Abduction Supine Exercise Name AAROM Horizontal Abduction /c PVC Side bilateral Serratus Punch Supine Exercise Name Serratus Punch /c PVC Side bilateral Sitting Exercises Chest Press Sitting Exercise Name Seated chest press /c PVC Side bilateral Resistance 4# Pulleys Sitting Exercise Name Pulleys Side bilateral Comments Flexion, Abduction Standing Exercises Rows Standing Exercise Name Rows Side bilateral Resistance Crane Extension Standing Exercise Name Shoulder Extension Side bilateral Resistance Crane Wall slides Standing Exercise Name wall slides - flexion, abduction Side bilateral PT-OP-T Assessment and Plan Start: 09/30/23 16:01 Freq: Status: Active Protocol: Document 10/04/23 12:00 DCW (Rec: 10/04/23 12:44 DCW [id number]) Physical Therapy Assessment Impairments Impairments Functional Activities, Functional Mobility,Pain,ROM, Soft Tissue Mobility,Strength, Tone Goals One Impairment Pt does not have an appropriate home exercise program Short Term Goal (STG) Pt to be independent and compliant with an appropriate HEP STG Duration 10/31/23 Three Impairment Shoulder pain when holding her phone more than a few minutes Fdc Goal (LTG) Pt to report shoulder pain of 3/10 at worst in order to reduce limitations in ability to hold objects LTG Duration 12/01/23 Two Impairment Pt struggles to style her hair due to limitations in bilateral shoulder ROM Impairment . Fdc Goal (LTG) Pt to increase active shoulder abduction bilaterally to >120 ? in order to improve ability to wash and style hair without pain LTG Duration 12/01/23 Assessment Summary Assessment Good tolerance to exercise today, increased mobility in shoulders following UBE and pulleys. Pt provided with HEP handout, including Serratus Punch, wall slides, Sh extension, and Rows. Physical Therapy Plan Frequency and Duration Frequency of Treatment 2x/Week Plan of Care Start Date 09/30/23 Plan of Care End Date 12/01/23 Therapeutic Interventions Therapeutic Interventions Home Exercise Program,Joint Mobilizations,Manual Therapy, Neuromuscular Re-education, Patient/Caregiver Education, Self-Care/Home Management,Soft Tissue Mobilization, Therapeutic Activities, Therapeutic Exercises Next Visit Focus/Plan Next Note Type Treatment Note Next Visit Plan Shoulder mobility, gentle strengthening, joint stabilization
--- NOTE | 2023-10-07 13:45 | PT.OTN ---
Current Diagnoses Pain in right shoulder (10/07/23) Pain in left shoulder (10/07/23) Stiffness of right shoulder, not elsewhere classified (10/07/23) Stiffness of left shoulder, not elsewhere classified (10/07/23) Physical Therapy Treatment Note PT-OP-A Visit Information Start: 09/30/23 16:01 Freq: Status: Active Protocol: Document 10/07/23 13:00 SP (Rec: 10/07/23 13:50 SP [id number]) Out-Patient Physical Therapy Visit Information Visit Information Visit Type Treatment Note Visit Start Time 13:00 Visit Stop Time 13:45 Visit Number 3 Number of SUGAR TRUCKER Visits 1 Evaluation Information Evaluation Date 09/30/23 PT-OP-B Current Condition Start: 09/30/23 16:01 Freq: Status: Active Protocol: Document 09/30/23 12:00 DCW (Rec: 10/01/23 08:57 DCW [id number]) Current Condition History of Current Condition Onset Date Jul, 2023 Current Complaints Bilateral shoulder pain and decreased ROM History of Current Condition Pt is a 78 year old female presenting to skilled therapy due to bilateral shoulder injuries. Pt's injuries were caused by two different events a week apart. Pt reports that two months ago, she was lifting a wheelchair into her car with her right arm, felt a pop, and immediately began experiencing fairly significant pain and limited mobility of her right arm. One week later, she was visiting her children/grandchildren out of state, tripped over her grandson's Lego box, and fell directly on her left arm. One again, experiencing immediate pain and limited mobility. Did receive an x-ray at the time, which was unremarkable. Pt reports she is struggling to do anything overhead or reaching back, including washing/styling her hair, washing her back, or hooking her bra. Arms hurt when driving, and notes increased pain even when trying to hold her phone more than a few minutes. PT-OP-C Subjective Start: 09/30/23 16:01 Freq: Status: Active Protocol: Document 10/07/23 13:00 SP (Rec: 10/07/23 13:50 SP [id number]) OP-PT Subjective Patient Comments Patient Comments Pt reports has an MRI for R and L shoulder later this afternoon. She states not doing ex as much as indicate but has quesion about the wall slides and put weight through arm meant. Pt asked if can utilize CP end tx for pain relief support. PT-OP-E Functional Tests Start: 09/30/23 16:01 Freq: Status: Active Protocol: Document 09/30/23 12:00 DCW (Rec: 10/01/23 08:46 DCW [id number]) Functional Tests Apley's Scratch Test Action 1- Left Anterior opposite shoulder Action 1- Right Posterior opposite shoulder Action 2- Left Occipital Action 2- Right C6 Action 3- Left T12 Action 3- Right T10 PT-OP-F Manual Assessment Start: 09/30/23 16:01 Freq: Status: Active Protocol: Document 09/30/23 12:00 DCW (Rec: 10/01/23 08:46 DCW [id number]) Manual Assessments Soft Tissue Assessment Soft Tissue Mobility Assessment Severe tone of R subscapularis along lateral edge of scapula PT-OP-K Range of Motion Start: 09/30/23 16:01 Freq: Status: Active Protocol: Document 09/30/23 12:00 DCW (Rec: 10/01/23 08:46 DCW [id number]) Shoulder Goniometric Range of Motion Shoulder Right Passive Testing Position Supine Flexion 160 Abduction 180 External Rotation at 0 degrees Abduction 36 Right Active Testing Position Sitting Flexion 76 Abduction 88 External Rotation at 0 degrees Abduction 31 Internal Rotation Behind Back (text) T10 Left Passive Testing Position Supine Flexion 128 Abduction 52 External Rotation at 0 degrees Abduction 50 Left Active Testing Position Sitting Flexion 78 Abduction 75 External Rotation at 0 degrees Abduction 42 Internal Rotation Behind Back (text) T12 PT-OP-L Special Tests Start: 09/30/23 16:01 Freq: Status: Active Protocol: Document 09/30/23 12:00 DCW (Rec: 10/01/23 08:46 DCW [id number]) Special Tests Shoulder Special Tests Speed's Biceps Test Results Positive L Passive ER Rotator Cuff Test Results Positive R Lift-Off Rotator Cuff Test Results Positive B Mast Tolu Impingement Test Results Negative Grind Labrum Test Results Positive L Empty Can Test Results Positive L Drop Arm Rotator Cuff Test Results Negative Belly Press Test Results Positive B Apprehension Test Test Results Positive L PT-OP-M Strength Start: 09/30/23 16:01 Freq: Status: Active Protocol: Document 09/30/23 12:00 DCW (Rec: 10/01/23 08:46 DCW [id number]) Shoulder Strength Shoulder Manual Muscle Testing Right Flexion 2 Poor Abduction (C5) 2 Poor Internal Rotation 2- Poor- Horizontal Abduction 3- Fair- Left Flexion 2 Poor Abduction (C5) 2 Poor External Rotation 3- Fair- Internal Rotation 3- Fair- PT-OP-Q Treatments Start: 09/30/23 16:01 Freq: Status: Active Protocol: Document 10/07/23 13:00 SP (Rec: 10/07/23 13:50 SP [id number]) Cardio Equipment Upper Body Ergometer (UBE) Duration (Minutes) 5 RPM 60 Seat Position 9 Height 3.5>2.5 Other 2.5 min f/b- no pain but report very tiring Therapeutic Exercises Supine Exercises Horizontal Abduction Supine Exercise Name AAROM Horizontal Abduction /c PVC Side bilateral Reps/Minutes x15 reps (Home BID) Comments good set up and form- states a stretch outside of normal Serratus Punch Supine Exercise Name Serratus Punch /c PVC Side bilateral Reps/Minutes x15 reps (Home BID) Comments good set up and form Sidelying Exercises ER Sidelying Exercise Name trialed in PT Side left Resistance AROM Reps/Minutes x10 Comments no pain. Standing Exercises Rows Standing Exercise Name Rows Side bilateral Resistance Hill TB #2 Reps/Minutes 15 each (home BID) Comments good self set up and form Extension Standing Exercise Name Shoulder Extension Side bilateral Resistance Hill TB #2 Reps/Minutes 15 each (home BID) Comments good self set up and form Wall slides Standing Exercise Name wall slides - flexion, abduction Side bilateral Resistance L >R shld pain going OH Equipment Used FF R approx 160d eg, L approx 150 Reps/Minutes 8- 10 reps each 3sec hold Comments cued stance at doorframe, wt shift into advanced LE improved ROM Manual Therapy Treatment Soft Tissue Mobilization shld Body Location B pec, deltoid Mobilization Type Sustained Pressure,Other Comments PROM IR/ER & punching motion / c sustained STMs Joint Mobilizations B GH Jt Direction posterior, inferior Comments hooklying Manual Techniques PROM Type B: FF, ABD, ER B shlds PT-OP-T Assessment and Plan Start: 09/30/23 16:01 Freq: Status: Active Protocol: Document 10/07/23 13:00 SP (Rec: 10/07/23 13:50 SP [id number]) Physical Therapy Assessment Goals One Impairment Pt does not have an appropriate home exercise program Short Term Goal (STG) Pt to be independent and compliant with an appropriate HEP STG Duration 10/31/23 Three Impairment Shoulder pain when holding her phone more than a few minutes Impairment NDI is 13 (20-39% impaired), UE Quickdash is 22.72 (20-39% impaired) [facility] Goal (LTG) Pt to report shoulder pain of 3/10 at worst in order to reduce limitations in ability to hold objects LTG Duration 12/01/23 Two Impairment Pt struggles to style her hair due to limitations in bilateral shoulder ROM Impairment . Chcf Goal (LTG) Pt to increase active shoulder abduction bilaterally to >120 ? in order to improve ability to wash and style hair without pain LTG Duration 12/01/23 Assessment Summary Assessment Pt good tolerance to ther ex, good self set up and proper form with therabands. Wall slides ed stand at doorframe opp ft fwd and wt shift fwd to assist AAROM UE overhead, reported L more sore than R. Will have MRI on R and L shld later today. Physical Therapy Plan Frequency and Duration Frequency of Treatment 2x/Week Plan of Care Start Date 09/30/23 Plan of Care End Date 12/01/23 Therapeutic Interventions Therapeutic Interventions Home Exercise Program,Joint Mobilizations,Manual Therapy, Neuromuscular Re-education, Patient/Caregiver Education, Self-Care/Home Management,Soft Tissue Mobilization, Therapeutic Activities, Therapeutic Exercises Next Visit Focus/Plan Next Note Type Treatment Note Next Visit Plan CHeck MRI 10/06. Recheck HEP, add shld ER, isometrics POC: Shoulder mobility, gentle strengthening, joint stabilization
--- NOTE | 2023-10-12 13:46 | PT.OTN ---
Current Diagnoses Pain in right shoulder (10/12/23) Pain in left shoulder (10/12/23) Stiffness of right shoulder, not elsewhere classified (10/12/23) Stiffness of left shoulder, not elsewhere classified (10/12/23) Physical Therapy Treatment Note PT-OP-A Visit Information Start: 09/30/23 16:01 Freq: Status: Active Protocol: Document 10/12/23 13:04 SP (Rec: 10/12/23 13:50 SP [id number]) Out-Patient Physical Therapy Visit Information Visit Information Visit Type Treatment Note Visit Note Pt will be out town for 2 weeks after today's appt, [facility]. 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 Pt's injuries were caused by two different events a week apart. Pt reports that two months ago, she was lifting a wheelchair into her car with her right arm, felt a pop, and immediately began experiencing fairly significant pain and limited mobility of her right arm. One week later, she was visiting her children/grandchildren out of state, tripped over her grandson's Lego box, and fell directly on her left arm. One again, experiencing immediate pain and limited mobility. Did receive an x-ray at the time, which was unremarkable. Pt reports she is struggling to do anything overhead or reaching back, including washing/styling her hair, washing her back, or hooking her bra. Arms hurt when driving, and notes increased pain even when trying to hold her phone more than a few minutes. PT-OP-C Subjective Start: 09/30/23 16:01 Freq: Status: Active Protocol: Document 10/12/23 13:04 SP (Rec: 10/12/23 13:50 SP [id number]) OP-PT Subjective Patient Comments Patient Comments Pt reports got MRI L and R shld results and appt with dr peñaloza today to discuss. Having pain L shld sleeping on R shld but ok when incline on couch. She puts CP on L shld and MHP on neck and feels better and better quality sleep but unsure why on couch vs bed. She reports chest press ok pn free supine but wall slide standing painful but does because to get stronger. PT-OP-E Functional Tests Start: 09/30/23 16:01 Freq: Status: Active Protocol: Document 09/30/23 12:00 DCW (Rec: 10/01/23 08:46 DCW [id number]) Functional Tests Apley's Scratch Test Action 1- Left Anterior opposite shoulder Action 1- Right Posterior opposite shoulder Action 2- Left Occipital Action 2- Right C6 Action 3- Left T12 Action 3- Right T10 PT-OP-F Manual Assessment Start: 09/30/23 16:01 Freq: Status: Active Protocol: Document 09/30/23 12:00 DCW (Rec: 10/01/23 08:46 DCW [id number]) Manual Assessments Soft Tissue Assessment Soft Tissue Mobility Assessment Severe tone of R subscapularis along lateral edge of scapula PT-OP-K Range of Motion Start: 09/30/23 16:01 Freq: Status: Active Protocol: Document 09/30/23 12:00 DCW (Rec: 10/01/23 08:46 DCW [id number]) Shoulder Goniometric Range of Motion Shoulder Right Passive Testing Position Supine Flexion 160 Abduction 180 External Rotation at 0 degrees Abduction 36 Right Active Testing Position Sitting Flexion 76 Abduction 88 External Rotation at 0 degrees Abduction 31 Internal Rotation Behind Back (text) T10 Left Passive Testing Position Supine Flexion 128 Abduction 52 External Rotation at 0 degrees Abduction 50 Left Active Testing Position Sitting Flexion 78 Abduction 75 External Rotation at 0 degrees Abduction 42 Internal Rotation Behind Back (text) T12 PT-OP-L Special Tests Start: 09/30/23 16:01 Freq: Status: Active Protocol: Document 09/30/23 12:00 DCW (Rec: 10/01/23 08:46 DCW [id number]) Special Tests Shoulder Special Tests Speed's Biceps Test Results Positive L Passive ER Rotator Cuff Test Results Positive R Lift-Off Rotator Cuff Test Results Positive B Mast Tolu Impingement Test Results Negative Grind Labrum Test Results Positive L Empty Can Test Results Positive L Drop Arm Rotator Cuff Test Results Negative Belly Press Test Results Positive B Apprehension Test Test Results Positive L PT-OP-M Strength Start: 09/30/23 16:01 Freq: Status: Active Protocol: Document 09/30/23 12:00 DCW (Rec: 10/01/23 08:46 DCW [id number]) Shoulder Strength Shoulder Manual Muscle Testing Right Flexion 2 Poor Abduction (C5) 2 Poor Internal Rotation 2- Poor- Horizontal Abduction 3- Fair- Left Flexion 2 Poor Abduction (C5) 2 Poor External Rotation 3- Fair- Internal Rotation 3- Fair- PT-OP-Q Treatments Start: 09/30/23 16:01 Freq: Status: Active Protocol: Document 10/12/23 13:04 SP (Rec: 10/12/23 13:50 SP [id number]) Cardio Equipment Upper Body Ergometer (UBE) Duration (Minutes) 4 RPM 80 Seat Position 9 Height 2.5 Other 2min f/b but reports soreness so stopped Therapeutic Exercises Sitting Exercises table slides Sitting Exercise Name FF, scaption- added to HEP Reps/Minutes 10 Comments pnfree range- Standing Exercises Wall slides Standing Exercise Name discussed hold due to pain Side left Manual Therapy Treatment Soft Tissue Mobilization neck Body Location B UT, LS Comments manual STMs and ed use theracane not performed. shld Body Location B pec, deltoid, infrasp, suprasp, rhomboid Mobilization Type Strumming Body Position Sidelying Comments STMs /c scapulothoracic PROM Joint Mobilizations L scapulothoracic Joint L Direction retraction/depression Grade II Body Position Sidelying Comments good feedback tension reduction parascapular Self-Care/Home Management Treatment Education Patient Education Joint Protection,Pain Management,Posture Other Education 15 min: Time spent working use pillows incline wedge and pillow under head and BLEs for neutral spinal alignment sleeping on back vs R side. Comfortable propped on back. Anatomy of shld and scapular mechanics during ROM and how neck can compensate. PT-OP-T Assessment and Plan Start: 09/30/23 16:01 Freq: Status: Active Protocol: Document 10/12/23 13:04 SP (Rec: 10/12/23 13:50 SP [id number]) Physical Therapy Assessment Goals One Impairment Pt does not have an appropriate home exercise program Short Term Goal (STG) Pt to be independent and compliant with an appropriate HEP STG Duration 10/31/23 Three Impairment Shoulder pain when holding her phone more than a few minutes Impairment NDI is 13 (20-39% impaired), UE Quickdash is 22.72 (20-39% impaired) Snf Goal (LTG) Pt to report shoulder pain of 3/10 at worst in order to reduce limitations in ability to hold objects LTG Duration 12/01/23 Two Impairment Pt struggles to style her hair due to limitations in bilateral shoulder ROM Impairment . Snf Goal (LTG) Pt to increase active shoulder abduction bilaterally to >120 ? in order to improve ability to wash and style hair without pain LTG Duration 12/01/23 Assessment Summary Assessment Pt reported decrease neck tension and improved scapular ROM. Discussed DC standing wall slide and change to seated table slide FF, scaption with good tolerance no pain and able to work into reaching overhead ROM while supported. Physical Therapy Plan Frequency and Duration Frequency of Treatment 2x/Week Plan of Care Start Date 09/30/23 Plan of Care End Date 12/01/23 Therapeutic Interventions Therapeutic Interventions Home Exercise Program,Joint Mobilizations,Manual Therapy, Neuromuscular Re-education, Patient/Caregiver Education, Self-Care/Home Management,Soft Tissue Mobilization, Therapeutic Activities, Therapeutic Exercises Next Visit Focus/Plan Next Note Type Treatment Note Next Visit Plan CHeck MRI 10/06. Recheck HEP, add shld ER, isometrics POC: Shoulder mobility, gentle strengthening, joint stabilization
--- NOTE | 2023-10-28 09:02 | PT.OTN ---
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 PT-OP-B Current Condition Start: 09/30/23 16:01 Freq: Status: Active Protocol: Document 09/30/23 12:00 DCW (Rec: 10/01/23 08:57 DCW [id number]) Current Condition History of Current Condition Onset Date Jul, 2023 Current Complaints Bilateral shoulder pain and decreased ROM History of Current Condition Pt is a 78 year old female presenting to skilled therapy due to bilateral shoulder injuries. Pt's injuries were caused by two different events a week apart. Pt reports that two months ago, she was lifting a wheelchair into her car with her right arm, felt a pop, and immediately began experiencing fairly significant pain and limited mobility of her right arm. One week later, she was visiting her children/grandchildren out of state, tripped over her grandson's Lego box, and fell directly on her left arm. One again, experiencing immediate pain and limited mobility. Did receive an x-ray at the time, which was unremarkable. Pt reports she is struggling to do anything overhead or reaching back, including washing/styling her hair, washing her back, or hooking her bra. Arms hurt when driving, and notes increased pain even when trying to hold her phone more than a few minutes. PT-OP-C Subjective Start: 09/30/23 16:01 Freq: Status: Active Protocol: Document 10/28/23 08:17 SP (Rec: 10/28/23 09:07 SP [id number]) OP-PT Subjective Patient Comments Patient Comments Pt was out town for 2 weeks. Her got sick so vacation cut short. She still hasn't see a change in shoulder pain worse on L than R. She has appt with orthopedist in 2 weeks. PT-OP-E Functional Tests Start: 09/30/23 16:01 Freq: Status: Active Protocol: Document 09/30/23 12:00 DCW (Rec: 10/01/23 08:46 DCW [id number]) Functional Tests Apley's Scratch Test Action 1- Left Anterior opposite shoulder Action 1- Right Posterior opposite shoulder Action 2- Left Occipital Action 2- Right C6 Action 3- Left T12 Action 3- Right T10 PT-OP-F Manual Assessment Start: 09/30/23 16:01 Freq: Status: Active Protocol: Document 09/30/23 12:00 DCW (Rec: 10/01/23 08:46 DCW [id number]) Manual Assessments Soft Tissue Assessment Soft Tissue Mobility Assessment Severe tone of R subscapularis along lateral edge of scapula PT-OP-K Range of Motion Start: 09/30/23 16:01 Freq: Status: Active Protocol: Document 09/30/23 12:00 DCW (Rec: 10/01/23 08:46 DCW [id number]) Shoulder Goniometric Range of Motion Shoulder Right Passive Testing Position Supine Flexion 160 Abduction 180 External Rotation at 0 degrees Abduction 36 Right Active Testing Position Sitting Flexion 76 Abduction 88 External Rotation at 0 degrees Abduction 31 Internal Rotation Behind Back (text) T10 Left Passive Testing Position Supine Flexion 128 Abduction 52 External Rotation at 0 degrees Abduction 50 Left Active Testing Position Sitting Flexion 78 Abduction 75 External Rotation at 0 degrees Abduction 42 Internal Rotation Behind Back (text) T12 PT-OP-L Special Tests Start: 09/30/23 16:01 Freq: Status: Active Protocol: Document 09/30/23 12:00 DCW (Rec: 10/01/23 08:46 DCW [id number]) Special Tests Shoulder Special Tests Speed's Biceps Test Results Positive L Passive ER Rotator Cuff Test Results Positive R Lift-Off Rotator Cuff Test Results Positive B Mast Tolu Impingement Test Results Negative Grind Labrum Test Results Positive L Empty Can Test Results Positive L Drop Arm Rotator Cuff Test Results Negative Belly Press Test Results Positive B Apprehension Test Test Results Positive L PT-OP-M Strength Start: 07/25/24 16:01 Freq: Status: Active Protocol: Document 09/30/23 12:00 DCW (Rec: 10/01/23 08:46 DCW [id number]) Shoulder Strength Shoulder Manual Muscle Testing Right Flexion 2 Poor Abduction (C5) 2 Poor Internal Rotation 2- Poor- Horizontal Abduction 3- Fair- Left Flexion 2 Poor Abduction (C5) 2 Poor External Rotation 3- Fair- Internal Rotation 3- Fair- PT-OP-Q Treatments Start: 09/30/23 16:01 Freq: Status: Active Protocol: Document 10/28/23 08:17 SP (Rec: 10/28/23 09:07 SP [id number]) Cardio Equipment Upper Body Ergometer (UBE) Duration (Minutes) 6 RPM 80 Seat Position 9 Height 2.5 Other 2min f/b but reports soreness so stopped Therapeutic Exercises Supine Exercises ER wand Supine Exercise Name added to HEP Resistance R>L limited AAROM Equipment Used wand Reps/Minutes x10 2 sec pause end range hold Comments cued slow, no pain R, pain L but ed not push into pain/ benefit range tensio Sidelying Exercises ER Sidelying Exercise Name Reviewed HEP Side bilateral Resistance AROM (unable lif 1# DB Hold) R , 1# DB L Equipment Used rolled towel under arm Reps/Minutes x10 Comments no pain. Standing Exercises IR Standing Exercise Name added to HEP Side bilateral Resistance Tb #1 light blue Reps/Minutes x10 Rows Standing Exercise Name Rows Side bilateral Resistance TB #3>4 dark blue Reps/Minutes 2x15 each Comments occasional cue no UT recruitment Extension Standing Exercise Name Shoulder Extension Side bilateral Resistance TB # 3 [place] Reps/Minutes 2x15 each Comments occasional cue no UT recruitment PT-OP-T Assessment and Plan Start: 09/30/23 16:01 Freq: Status: Active Protocol: Document 10/28/23 08:17 SP (Rec: 10/28/23 09:07 SP [id number]) Physical Therapy Assessment Goals One Impairment Pt does not have an appropriate home exercise program Short Term Goal (STG) Pt to be independent and compliant with an appropriate HEP STG Duration 10/31/23 Three Impairment Shoulder pain when holding her phone more than a few minutes Impairment NDI is 13 (20-39% impaired), UE Quickdash is 22.72 (20-39% impaired) [employer] Admin Goal (LTG) Pt to report shoulder pain of 3/10 at worst in order to reduce limitations in ability to hold objects LTG Duration 12/01/23 Two Impairment Pt struggles to style her hair due to limitations in bilateral shoulder ROM Impairment . [employer] Admin Goal (LTG) Pt to increase active shoulder abduction bilaterally to >120 ? in order to improve ability to wash and style hair without pain LTG Duration 12/01/23 Assessment Summary Assessment Pt improved scapular corrections during HEP, no pain and able to increase tolerance rows today. Initiated humeral IR standing band and Sidelying ER AROM R 1 # DB R with just tiring reported painfree and supine humeral AAROM wand to improved ROM painfree range. Provided HOs. PT reported L>R shoulders sore end tx. Pt stated responds well to CP can incorporate home. Physical Therapy Plan Frequency and Duration Frequency of Treatment 2x/Week Plan of Care Start Date 09/30/23 Plan of Care End Date 12/01/23 Therapeutic Interventions Therapeutic Interventions Home Exercise Program,Joint Mobilizations,Manual Therapy, Neuromuscular Re-education, Patient/Caregiver Education, Self-Care/Home Management,Soft Tissue Mobilization, Therapeutic Activities, Therapeutic Exercises Other Referrals/Consults Referrals/Consults Recommended Has referral to orthopedic in 2 weeks. [employer] CON[employer]ER FINISHING HAND discussed calling and see if can get in earlier or be on waiting list. Next Visit Focus/Plan Next Note Type Treatment Note Next Visit Plan CHeck MRI 10/06 L shld. Orthopedic 2 weeks, see if got appt earlier. Next recheck ROM. Recheck HEP wand, ER on side, IR TB. POC: Shoulder mobility, gentle strengthening, joint stabilization
--- NOTE | 2023-11-03 14:35 | PT.OTN ---
Current Diagnoses Pain in right shoulder (11/03/23) Pain in left shoulder (11/03/23) Stiffness of right shoulder, not elsewhere classified (11/03/23) Stiffness of left shoulder, not elsewhere classified (11/03/23) Physical Therapy Treatment Note PT-OP-A Visit Information Start: 09/30/23 16:01 Freq: Status: Active Protocol: Document 11/03/23 13:57 SP (Rec: 11/03/23 14:35 SP [id number]) Out-Patient Physical Therapy Visit Information Visit Information Visit Type Treatment Note Visit Note 07/15 post Eval Visit Start Time 13:57 Visit Stop Time 14:35 Visit Number 6 Number of BATTERY CHARGER CONVEYOR LINE Visits 4 Evaluation Information Evaluation Date 09/30/23 Precautions Precautions 10/07/23 MRI R shld & L shld at . PT-OP-B Current Condition Start: 09/30/23 16:01 Freq: Status: Active Protocol: Document 09/30/23 12:00 DCW (Rec: 10/01/23 08:57 DCW [id number]) Current Condition History of Current Condition Onset Date Jul, 2023 Current Complaints Bilateral shoulder pain and decreased ROM History of Current Condition Pt is a 78 year old female presenting to skilled therapy due to bilateral shoulder injuries. Pt's injuries were caused by two different events a week apart. Pt reports that two months ago, she was lifting a wheelchair into her car with her right arm, felt a pop, and immediately began experiencing fairly significant pain and limited mobility of her right arm. One week later, she was visiting her children/grandchildren out of state, tripped over her grandson's Lego box, and fell directly on her left arm. One again, experiencing immediate pain and limited mobility. Did receive an x-ray at the time, which was unremarkable. Pt reports she is struggling to do anything overhead or reaching back, including washing/styling her hair, washing her back, or hooking her bra. Arms hurt when driving, and notes increased pain even when trying to hold her phone more than a few minutes. PT-OP-C Subjective Start: 09/30/23 16:01 Freq: Status: Active Protocol: Document 11/03/23 13:57 SP (Rec: 11/03/23 14:35 SP [id number]) OP-PT Subjective Patient Comments Patient Comments Pt reports saw Dr Larry and recommended B shoulder replacement but do L first. First will have EKG and CT scan. PT-OP-E Functional Tests Start: 09/30/23 16:01 Freq: Status: Active Protocol: Document 09/30/23 12:00 DCW (Rec: 10/01/23 08:46 DCW [id number]) Functional Tests Apley's Scratch Test Action 1- Left Anterior opposite shoulder Action 1- Right Posterior opposite shoulder Action 2- Left Occipital Action 2- Right C6 Action 3- Left T12 Action 3- Right T10 PT-OP-F Manual Assessment Start: 09/30/23 16:01 Freq: Status: Active Protocol: Document 09/30/23 12:00 DCW (Rec: 10/01/23 08:46 DCW [id number]) Manual Assessments Soft Tissue Assessment Soft Tissue Mobility Assessment Severe tone of R subscapularis along lateral edge of scapula PT-OP-K Range of Motion Start: 09/30/23 16:01 Freq: Status: Active Protocol: Document 11/03/23 13:57 SP (Rec: 11/03/23 14:35 SP [id number]) Shoulder Goniometric Range of Motion Shoulder Right Active Shoulder ROM WFL Yes Testing Position Sitting Flexion 135 Abduction 127 External Rotation at 0 degrees Abduction 39 Internal Rotation Behind Back (text) T 10 Comments RUE AROM seated: FF 59 deg gain 135 deg ABD 39 deg gain 127deg (slight fwd) ER /c 0 deg ABD: 8 deg gain 39 deg IR behind back T10 same as . Left Active Shoulder ROM WFL No Testing Position Sitting Flexion 112 Abduction 95 External Rotation at 0 degrees Abduction 54 Internal Rotation Behind Back (text) L4 Comments LUE AROM Seated: FF 35 deg gain 112 deg ABD 20 deg gain 95 deg ER /c 0 deg abd: 12 deg gain 54 deg. IR behind back: L4 reduction range from T12 on 09/29 PT-OP-L Special Tests Start: 09/30/23 16:01 Freq: Status: Active Protocol: Document 09/30/23 12:00 DCW (Rec: 10/01/23 08:46 DCW [id number]) Special Tests Shoulder Special Tests Speed's Biceps Test Results Positive L Passive ER Rotator Cuff Test Results Positive R Lift-Off Rotator Cuff Test Results Positive B Mast Tolu Impingement Test Results Negative Grind Labrum Test Results Positive L Empty Can Test Results Positive L Drop Arm Rotator Cuff Test Results Negative Belly Press Test Results Positive B Apprehension Test Test Results Positive L PT-OP-M Strength Start: 09/30/23 16:01 Freq: Status: Active Protocol: Document 09/30/23 12:00 DCW (Rec: 10/01/23 08:46 DCW [id number]) Shoulder Strength Shoulder Manual Muscle Testing Right Flexion 2 Poor Abduction (C5) 2 Poor Internal Rotation 2- Poor- Horizontal Abduction 3- Fair- Left Flexion 2 Poor Abduction (C5) 2 Poor External Rotation 3- Fair- Internal Rotation 3- Fair- PT-OP-Q Treatments Start: 09/30/23 16:01 Freq: Status: Active Protocol: Document 11/03/23 13:57 SP (Rec: 11/03/23 14:35 SP [id number]) Cardio Equipment Upper Body Ergometer (UBE) Duration (Minutes) 4 RPM 80 Seat Position 9 Height 2.5 Other 2min f/b but reports soreness so stopped Therapeutic Exercises Supine Exercises FF wand Supine Exercise Name trialed over 1/2 foam roller Side bilateral Equipment Used spine along 1/2 foam roller ( noodle home) Reps/Minutes x10 Comments cued pnfree range ER wand Supine Exercise Name reviewed HEP Resistance L>R limited AAROM Equipment Used wand, rolled towel between body/arm Reps/Minutes x10 5 sec pause end range hold Comments cued slow, no pain R, pain L but ed not push into pain. Serratus Punch Supine Exercise Name Serratus Punch /c PVC Side bilateral Equipment Used spine along 1/2 foam roller ( has home) Reps/Minutes x15 reps (Home BID) Comments good set up and form Sidelying Exercises ER Sidelying Exercise Name Reviewed HEP Side bilateral Resistance AROM R, 1# DB L Equipment Used rolled towel under arm Reps/Minutes x10 Comments no pain. PT-OP-T Assessment and Plan Start: 09/30/23 16:01 Freq: Status: Active Protocol: Document 11/03/23 13:57 SP (Rec: 11/03/23 14:35 SP [id number]) Physical Therapy Assessment Goals One Impairment Pt does not have an appropriate home exercise program Short Term Goal (STG) Pt to be independent and compliant with an appropriate HEP STG Duration 10/31/23 Three Impairment Shoulder pain when holding her phone more than a few minutes Impairment NDI is 13 (20-39% impaired), UE Quickdash is 22.72 (20-39% impaired) Property Worker Goal (LTG) Pt to report shoulder pain of 3/10 at worst in order to reduce limitations in ability to hold objects LTG Duration 12/01/23 Two Impairment Pt struggles to style her hair due to limitations in bilateral shoulder ROM Impairment . Nursing Home Goal (LTG) Pt to increase active shoulder abduction bilaterally to >120 ? in order to improve ability to wash and style hair without pain 11/03/23: progressing: see measurements- good gains making. ABD R 127 deg, L 95 deg. LTG Duration 12/01/23 progressing 11/03/23 Progress Towards Goals Progress Comments RUE AROM seated: FF 59 deg gain 135 deg ABD 39 deg gain 127deg (slight fwd) ER /c 0 deg ABD: 8 deg gain 39 deg IR behind back T10 same as . LUE AROM Seated: FF 35 deg gain 112 deg ABD 20 deg gain 95 deg ER /c 0 deg abd: 12 deg gain 54 deg. IR behind back: L4 reduction range from T12 on 09/29 Assessment Summary Assessment Pt made gains in ROM measured but still pain and limited funcitonally L>R. Considering B shld replacement L first, in couple months. Improved little more range ER use wand, cued gentle painfree range. Physical Therapy Plan Frequency and Duration Frequency of Treatment 2x/Week Plan of Care Start Date 09/30/23 Plan of Care End Date 12/01/23 Therapeutic Interventions Therapeutic Interventions Home Exercise Program,Joint Mobilizations,Manual Therapy, Neuromuscular Re-education, Patient/Caregiver Education, Self-Care/Home Management,Soft Tissue Mobilization, Therapeutic Activities, Therapeutic Exercises Next Visit Focus/Plan Next Note Type Treatment Note Next Visit Plan Recheck HEP wand, ER on side, IR TB stand. Check FF wand over head over noodle next tx for scap mobility and standing HEP. POC: Shoulder mobility, gentle strengthening, joint stabilization
--- NOTE | 2023-11-05 14:35 | PT.OTN ---
Current Diagnoses Pain in right shoulder (11/03/23) Pain in left shoulder (11/03/23) Stiffness of right shoulder, not elsewhere classified (11/03/23) Stiffness of left shoulder, not elsewhere classified (11/03/23) Physical Therapy Treatment Note PT-OP-A Visit Information Start: 09/30/23 16:01 Freq: Status: Active Protocol: Document 11/03/23 13:57 SP (Rec: 11/03/23 14:35 SP [id number]) Out-Patient Physical Therapy Visit Information Visit Information Visit Type Treatment Note Visit Note 07/15 post Eval Visit Start Time 13:57 Visit Stop Time 14:35 Visit Number 6 Number of RUBBER SPLICER Visits 4 Evaluation Information Evaluation Date 09/30/23 Precautions Precautions 10/07/23 MRI R shld & L shld at . PT-OP-B Current Condition Start: 09/30/23 16:01 Freq: Status: Active Protocol: Document 09/30/23 12:00 DCW (Rec: 10/01/23 08:57 DCW [id number]) Current Condition History of Current Condition Onset Date Jul, 2023 Current Complaints Bilateral shoulder pain and decreased ROM History of Current Condition Pt is a 78 year old female presenting to skilled therapy due to bilateral shoulder injuries. Pt's injuries were caused by two different events a week apart. Pt reports that two months ago, she was lifting a wheelchair into her car with her right arm, felt a pop, and immediately began experiencing fairly significant pain and limited mobility of her right arm. One week later, she was visiting her children/grandchildren out of state, tripped over her grandson's Lego box, and fell directly on her left arm. One again, experiencing immediate pain and limited mobility. Did receive an x-ray at the time, which was unremarkable. Pt reports she is struggling to do anything overhead or reaching back, including washing/styling her hair, washing her back, or hooking her bra. Arms hurt when driving, and notes increased pain even when trying to hold her phone more than a few minutes. PT-OP-C Subjective Start: 09/30/23 16:01 Freq: Status: Active Protocol: Document 11/03/23 13:57 SP (Rec: 11/03/23 14:35 SP [id number]) OP-PT Subjective Patient Comments Patient Comments Pt reports saw Dr Larry and recommended B shoulder replacement but do L first. First will have EKG and CT scan. PT-OP-E Functional Tests Start: 09/30/23 16:01 Freq: Status: Active Protocol: Document 09/30/23 12:00 DCW (Rec: 10/01/23 08:46 DCW [id number]) Functional Tests Apley's Scratch Test Action 1- Left Anterior opposite shoulder Action 1- Right Posterior opposite shoulder Action 2- Left Occipital Action 2- Right C6 Action 3- Left T12 Action 3- Right T10 PT-OP-F Manual Assessment Start: 09/30/23 16:01 Freq: Status: Active Protocol: Document 09/30/23 12:00 DCW (Rec: 10/01/23 08:46 DCW [id number]) Manual Assessments Soft Tissue Assessment Soft Tissue Mobility Assessment Severe tone of R subscapularis along lateral edge of scapula PT-OP-K Range of Motion Start: 09/30/23 16:01 Freq: Status: Active Protocol: Document 11/03/23 13:57 SP (Rec: 11/03/23 14:35 SP [id number]) Shoulder Goniometric Range of Motion Shoulder Right Active Shoulder ROM WFL Yes Testing Position Sitting Flexion 135 Abduction 127 External Rotation at 0 degrees Abduction 39 Internal Rotation Behind Back (text) T 10 Comments RUE AROM seated: FF 59 deg gain 135 deg ABD 39 deg gain 127deg (slight fwd) ER /c 0 deg ABD: 8 deg gain 39 deg IR behind back T10 same as . Left Active Shoulder ROM WFL No Testing Position Sitting Flexion 112 Abduction 95 External Rotation at 0 degrees Abduction 54 Internal Rotation Behind Back (text) L4 Comments LUE AROM Seated: FF 35 deg gain 112 deg ABD 20 deg gain 95 deg ER /c 0 deg abd: 12 deg gain 54 deg. IR behind back: L4 reduction range from T12 on 09/29 PT-OP-L Special Tests Start: 09/30/23 16:01 Freq: Status: Active Protocol: Document 09/30/23 12:00 DCW (Rec: 10/01/23 08:46 DCW [id number]) Special Tests Shoulder Special Tests Speed's Biceps Test Results Positive L Passive ER Rotator Cuff Test Results Positive R Lift-Off Rotator Cuff Test Results Positive B Mast Tolu Impingement Test Results Negative Grind Labrum Test Results Positive L Empty Can Test Results Positive L Drop Arm Rotator Cuff Test Results Negative Belly Press Test Results Positive B Apprehension Test Test Results Positive L PT-OP-M Strength Start: 09/30/23 16:01 Freq: Status: Active Protocol: Document 09/30/23 12:00 DCW (Rec: 10/01/23 08:46 DCW [id number]) Shoulder Strength Shoulder Manual Muscle Testing Right Flexion 2 Poor Abduction (C5) 2 Poor Internal Rotation 2- Poor- Horizontal Abduction 3- Fair- Left Flexion 2 Poor Abduction (C5) 2 Poor External Rotation 3- Fair- Internal Rotation 3- Fair- PT-OP-Q Treatments Start: 09/30/23 16:01 Freq: Status: Active Protocol: Document 11/03/23 13:57 SP (Rec: 11/03/23 14:35 SP [id number]) Cardio Equipment Upper Body Ergometer (UBE) Duration (Minutes) 4 RPM 80 Seat Position 9 Height 2.5 Other 2min f/b but reports soreness so stopped Therapeutic Exercises Supine Exercises FF wand Supine Exercise Name trialed over 1/2 foam roller Side bilateral Equipment Used spine along 1/2 foam roller ( noodle home) Reps/Minutes x10 Comments cued pnfree range ER wand Supine Exercise Name reviewed HEP Resistance L>R limited AAROM Equipment Used wand, rolled towel between body/arm Reps/Minutes x10 5 sec pause end range hold Comments cued slow, no pain R, pain L but ed not push into pain. Serratus Punch Supine Exercise Name Serratus Punch /c PVC Side bilateral Equipment Used spine along 1/2 foam roller ( has home) Reps/Minutes x15 reps (Home BID) Comments good set up and form Sidelying Exercises ER Sidelying Exercise Name Reviewed HEP Side bilateral Resistance AROM R, 1# DB L Equipment Used rolled towel under arm Reps/Minutes x10 Comments no pain. PT-OP-T Assessment and Plan Start: 09/30/23 16:01 Freq: Status: Active Protocol: Document 11/03/23 13:57 SP (Rec: 11/03/23 14:35 SP [id number]) Physical Therapy Assessment Goals One Impairment Pt does not have an appropriate home exercise program Short Term Goal (STG) Pt to be independent and compliant with an appropriate HEP STG Duration 10/31/23 Three Impairment Shoulder pain when holding her phone more than a few minutes Impairment NDI is 13 (20-39% impaired), UE Quickdash is 22.72 (20-39% impaired) Sterile Proc Tech Goal (LTG) Pt to report shoulder pain of 3/10 at worst in order to reduce limitations in ability to hold objects LTG Duration 12/01/23 Two Impairment Pt struggles to style her hair due to limitations in bilateral shoulder ROM Impairment . Care Home Goal (LTG) Pt to increase active shoulder abduction bilaterally to >120 ? in order to improve ability to wash and style hair without pain 11/03/23: progressing: see measurements- good gains making. ABD R 127 deg, L 95 deg. LTG Duration 12/01/23 progressing 11/03/23 Progress Towards Goals Progress Comments RUE AROM seated: FF 59 deg gain 135 deg ABD 39 deg gain 127deg (slight fwd) ER /c 0 deg ABD: 8 deg gain 39 deg IR behind back T10 same as . LUE AROM Seated: FF 35 deg gain 112 deg ABD 20 deg gain 95 deg ER /c 0 deg abd: 12 deg gain 54 deg. IR behind back: L4 reduction range from T12 on 09/29 Assessment Summary Assessment Pt made gains in ROM measured but still pain and limited funcitonally L>R. Considering B shld replacement L first, in couple months. Improved little more range ER use wand, cued gentle painfree range. Physical Therapy Plan Frequency and Duration Frequency of Treatment 2x/Week Plan of Care Start Date 09/30/23 Plan of Care End Date 12/01/23 Therapeutic Interventions Therapeutic Interventions Home Exercise Program,Joint Mobilizations,Manual Therapy, Neuromuscular Re-education, Patient/Caregiver Education, Self-Care/Home Management,Soft Tissue Mobilization, Therapeutic Activities, Therapeutic Exercises Next Visit Focus/Plan Next Note Type Treatment Note Next Visit Plan Recheck HEP wand, ER on side, IR TB stand. Check FF wand over head over noodle next tx for scap mobility and standing HEP. POC: Shoulder mobility, gentle strengthening, joint stabilization
--- NOTE | 2023-11-09 17:33 | PT.OTN ---
Current Diagnoses Pain in right shoulder (11/09/23) Pain in left shoulder (11/09/23) Stiffness of right shoulder, not elsewhere classified (11/09/23) Stiffness of left shoulder, not elsewhere classified (11/09/23) Physical Therapy Treatment Note PT-OP-A Visit Information Start: 09/30/23 16:01 Freq: Status: Active Protocol: Document 11/09/23 16:45 DCW (Rec: 11/09/23 17:33 DCW [id number]) Out-Patient Physical Therapy Visit Information Visit Information Visit Type Treatment Note Visit Note 08/15 post Eval Visit Start Time 16:45 Visit Stop Time 17:30 Visit Number 7 Number of LANGUAGE INTERPRETER Visits 0 Evaluation Information Evaluation Date 09/30/23 Precautions Precautions 10/07/23 MRI R shld & L shld at . PT-OP-B Current Condition Start: 09/30/23 16:01 Freq: Status: Active Protocol: Document 09/30/23 12:00 DCW (Rec: 10/01/23 08:57 DCW [id number]) Current Condition History of Current Condition Onset Date Jul, 2023 Current Complaints Bilateral shoulder pain and decreased ROM History of Current Condition Pt is a 78 year old female presenting to skilled therapy due to bilateral shoulder injuries. Pt's injuries were caused by two different events a week apart. Pt reports that two months ago, she was lifting a wheelchair into her car with her right arm, felt a pop, and immediately began experiencing fairly significant pain and limited mobility of her right arm. One week later, she was visiting her children/grandchildren out of state, tripped over her grandson's Lego box, and fell directly on her left arm. One again, experiencing immediate pain and limited mobility. Did receive an x-ray at the time, which was unremarkable. Pt reports she is struggling to do anything overhead or reaching back, including washing/styling her hair, washing her back, or hooking her bra. Arms hurt when driving, and notes increased pain even when trying to hold her phone more than a few minutes. PT-OP-C Subjective Start: 09/30/23 16:01 Freq: Status: Active Protocol: Document 11/09/23 16:45 DCW (Rec: 11/09/23 17:33 DCW [id number]) OP-PT Subjective Patient Comments Patient Comments Pt prepping for surgery, was told probably a month and a half out. PT-OP-E Functional Tests Start: 09/30/23 16:01 Freq: Status: Active Protocol: Document 09/30/23 12:00 DCW (Rec: 10/01/23 08:46 DCW [id number]) Functional Tests Apley's Scratch Test Action 1- Left Anterior opposite shoulder Action 1- Right Posterior opposite shoulder Action 2- Left Occipital Action 2- Right C6 Action 3- Left T12 Action 3- Right T10 PT-OP-F Manual Assessment Start: 09/30/23 16:01 Freq: Status: Active Protocol: Document 09/30/23 12:00 DCW (Rec: 10/01/23 08:46 DCW [id number]) Manual Assessments Soft Tissue Assessment Soft Tissue Mobility Assessment Severe tone of R subscapularis along lateral edge of scapula PT-OP-K Range of Motion Start: 09/30/23 16:01 Freq: Status: Active Protocol: Document 11/03/23 13:57 SP (Rec: 11/03/23 14:35 SP [id number]) Shoulder Goniometric Range of Motion Shoulder Right Active Shoulder ROM WFL Yes Testing Position Sitting Flexion 135 Abduction 127 External Rotation at 0 degrees Abduction 39 Internal Rotation Behind Back (text) T 10 Comments RUE AROM seated: FF 59 deg gain 135 deg ABD 39 deg gain 127deg (slight fwd) ER /c 0 deg ABD: 8 deg gain 39 deg IR behind back T10 same as . Left Active Shoulder ROM WFL No Testing Position Sitting Flexion 112 Abduction 95 External Rotation at 0 degrees Abduction 54 Internal Rotation Behind Back (text) L4 Comments LUE AROM Seated: FF 35 deg gain 112 deg ABD 20 deg gain 95 deg ER /c 0 deg abd: 12 deg gain 54 deg. IR behind back: L4 reduction range from T12 on 09/29 PT-OP-L Special Tests Start: 09/30/23 16:01 Freq: Status: Active Protocol: Document 09/30/23 12:00 DCW (Rec: 10/01/23 08:46 DCW [id number]) Special Tests Shoulder Special Tests Speed's Biceps Test Results Positive L Passive ER Rotator Cuff Test Results Positive R Lift-Off Rotator Cuff Test Results Positive B Mast Tolu Impingement Test Results Negative Grind Labrum Test Results Positive L Empty Can Test Results Positive L Drop Arm Rotator Cuff Test Results Negative Belly Press Test Results Positive B Apprehension Test Test Results Positive L PT-OP-M Strength Start: 09/30/23 16:01 Freq: Status: Active Protocol: Document 09/30/23 12:00 DCW (Rec: 10/01/23 08:46 DCW [id number]) Shoulder Strength Shoulder Manual Muscle Testing Right Flexion 2 Poor Abduction (C5) 2 Poor Internal Rotation 2- Poor- Horizontal Abduction 3- Fair- Left Flexion 2 Poor Abduction (C5) 2 Poor External Rotation 3- Fair- Internal Rotation 3- Fair- PT-OP-Q Treatments Start: 09/30/23 16:01 Freq: Status: Active Protocol: Document 11/09/23 16:45 DCW (Rec: 11/09/23 17:33 DCW [id number]) Cardio Equipment Upper Body Ergometer (UBE) Duration (Minutes) 6 RPM 80 Seat Position 9 Height 2.5 Other 2min f/b but reports soreness so stopped Therapeutic Exercises Supine Exercises Horizontal Abduction Supine Exercise Name Horizontal Abduction Side bilateral Resistance 2# Comments good set up and form- states a stretch outside of normal Serratus Punch Supine Exercise Name Serratus Punch Side bilateral Resistance 2# Standing Exercises Isometrics Standing Exercise Name Isometric flexion, abduction, ER, IR PT-OP-T Assessment and Plan Start: 09/30/23 16:01 Freq: Status: Active Protocol: Document 11/09/23 16:45 DCW (Rec: 11/09/23 17:33 DCW [id number]) Physical Therapy Assessment Impairments Impairments Functional Activities, Functional Mobility,Pain,ROM, Soft Tissue Mobility,Strength, Tone Goals One Impairment Pt does not have an appropriate home exercise program Short Term Goal (STG) Pt to be independent and compliant with an appropriate HEP STG Duration Met Three Impairment Shoulder pain when holding her phone more than a few minutes Bath Steward Goal (LTG) Pt to report shoulder pain of 3/10 at worst in order to reduce limitations in ability to hold objects LTG Duration 12/01/23 Two Impairment Pt struggles to style her hair due to limitations in bilateral shoulder ROM Bath Steward Goal (LTG) Pt to increase active shoulder abduction bilaterally to >120 ? in order to improve ability to wash and style hair without pain LTG Duration 12/01/23 Assessment Summary Assessment Pt has been compliant with HEP , feels like she will more than likely do well with independent HEP until surgery, but would like to keep currently scheduled visit in ~ 2 weeks in case she has HEP questions, difficulty with pain/sleep, or surgery is delayed enough that she requires further intervention. Physical Therapy Plan Frequency and Duration Frequency of Treatment 2x/Week Plan of Care Start Date 09/30/23 Plan of Care End Date 12/01/23 Therapeutic Interventions Therapeutic Interventions Home Exercise Program,Joint Mobilizations,Manual Therapy, Neuromuscular Re-education, Patient/Caregiver Education, Self-Care/Home Management,Soft Tissue Mobilization, Therapeutic Activities, Therapeutic Exercises Next Visit Focus/Plan Next Note Type Treatment Note Next Visit Plan Recheck HEP wand, ER on side, IR TB stand. Check FF wand over head over noodle next tx for scap mobility and standing HEP. POC: Shoulder mobility, gentle strengthening, joint stabilization
--- NOTE | 2023-11-23 15:16 | PT.OTN ---
Current Diagnoses Pain in right shoulder (11/23/23) Pain in left shoulder (11/23/23) Stiffness of right shoulder, not elsewhere classified (11/23/23) Stiffness of left shoulder, not elsewhere classified (11/23/23) Physical Therapy Treatment Note PT-OP-A Visit Information Start: 09/30/23 16:01 Freq: Status: Active Protocol: Document 11/23/23 14:36 SP (Rec: 11/23/23 15:49 SP [id number]) Out-Patient Physical Therapy Visit Information Visit Information Visit Type Treatment Note Visit Note 09/14 post Eval Visit Start Time 14:36 Visit Stop Time 15:16 Visit Number 8 Number of LAB ENGINEER Visits 1 Evaluation Information Evaluation Date 09/30/23 Precautions Precautions 10/07/23 MRI R shld & L shld at . PT-OP-B Current Condition Start: 09/30/23 16:01 Freq: Status: Active Protocol: Document 09/30/23 12:00 DCW (Rec: 10/01/23 08:57 DCW [id number]) Current Condition History of Current Condition Onset Date Jul, 2023 Current Complaints Bilateral shoulder pain and decreased ROM History of Current Condition Pt is a 78 year old female presenting to skilled therapy due to bilateral shoulder injuries. Pt's injuries were caused by two different events a week apart. Pt reports that two months ago, she was lifting a wheelchair into her car with her right arm, felt a pop, and immediately began experiencing fairly significant pain and limited mobility of her right arm. One week later, she was visiting her children/grandchildren out of state, tripped over her grandson's Lego box, and fell directly on her left arm. One again, experiencing immediate pain and limited mobility. Did receive an x-ray at the time, which was unremarkable. Pt reports she is struggling to do anything overhead or reaching back, including washing/styling her hair, washing her back, or hooking her bra. Arms hurt when driving, and notes increased pain even when trying to hold her phone more than a few minutes. PT-OP-C Subjective Start: 09/30/23 16:01 Freq: Status: Active Protocol: Document 11/23/23 14:36 SP (Rec: 11/23/23 15:49 SP [id number]) OP-PT Subjective Patient Comments Patient Comments Pt reports L shld in alot pain arrival today, wants to focus on more manual today help feel better. Feels isometrics are helpful vs ROM due to causing pain. PT-OP-E Functional Tests Start: 09/30/23 16:01 Freq: Status: Active Protocol: Document 09/30/23 12:00 DCW (Rec: 10/01/23 08:46 DCW [id number]) Functional Tests Apley's Scratch Test Action 1- Left Anterior opposite shoulder Action 1- Right Posterior opposite shoulder Action 2- Left Occipital Action 2- Right C6 Action 3- Left T12 Action 3- Right T10 PT-OP-F Manual Assessment Start: 09/30/23 16:01 Freq: Status: Active Protocol: Document 09/30/23 12:00 DCW (Rec: 10/01/23 08:46 DCW [id number]) Manual Assessments Soft Tissue Assessment Soft Tissue Mobility Assessment Severe tone of R subscapularis along lateral edge of scapula PT-OP-K Range of Motion Start: 09/30/23 16:01 Freq: Status: Active Protocol: Document 11/03/23 13:57 SP (Rec: 11/03/23 14:35 SP [id number]) Shoulder Goniometric Range of Motion Shoulder Right Active Shoulder ROM WFL Yes Testing Position Sitting Flexion 135 Abduction 127 External Rotation at 0 degrees Abduction 39 Internal Rotation Behind Back (text) T 10 Comments RUE AROM seated: FF 59 deg gain 135 deg ABD 39 deg gain 127deg (slight fwd) ER /c 0 deg ABD: 8 deg gain 39 deg IR behind back T10 same as . Left Active Shoulder ROM WFL No Testing Position Sitting Flexion 112 Abduction 95 External Rotation at 0 degrees Abduction 54 Internal Rotation Behind Back (text) L4 Comments LUE AROM Seated: FF 35 deg gain 112 deg ABD 20 deg gain 95 deg ER /c 0 deg abd: 12 deg gain 54 deg. IR behind back: L4 reduction range from T12 on 09/29 PT-OP-L Special Tests Start: 09/30/23 16:01 Freq: Status: Active Protocol: Document 09/30/23 12:00 DCW (Rec: 10/01/23 08:46 DCW [id number]) Special Tests Shoulder Special Tests Speed's Biceps Test Results Positive L Passive ER Rotator Cuff Test Results Positive R Lift-Off Rotator Cuff Test Results Positive B Mast Tolu Impingement Test Results Negative Grind Labrum Test Results Positive L Empty Can Test Results Positive L Drop Arm Rotator Cuff Test Results Negative Belly Press Test Results Positive B Apprehension Test Test Results Positive L PT-OP-M Strength Start: 09/30/23 16:01 Freq: Status: Active Protocol: Document 09/30/23 12:00 DCW (Rec: 10/01/23 08:46 DCW [id number]) Shoulder Strength Shoulder Manual Muscle Testing Right Flexion 2 Poor Abduction (C5) 2 Poor Internal Rotation 2- Poor- Horizontal Abduction 3- Fair- Left Flexion 2 Poor Abduction (C5) 2 Poor External Rotation 3- Fair- Internal Rotation 3- Fair- PT-OP-Q Treatments Start: 09/30/23 16:01 Freq: Status: Active Protocol: Document 11/23/23 14:36 SP (Rec: 11/23/23 15:49 SP [id number]) Therapeutic Exercises Sitting Exercises pendulum Sitting Exercise Name standing vs seated- added post op ex Side left Resistance RUE assist LUE Equipment Used seated in chair wide LE positioning Reps/Minutes 5-10 reps each direction: f/b/ lateral/CW/CCW Comments seated best performance and most relaxing to L shld Standing Exercises Isometrics Standing Exercise Name Isometric: flexion, abduction, ER, IR Side left Resistance manual resistance then carryover wall Equipment Used towel roll under arm and between hand & wall Reps/Minutes 5 SH x10 each Comments cued scap retract/depress set, elbow flexion front then meet wall & press Manual Therapy Treatment Consent Patient gave verbal consent for manual Yes treatment Soft Tissue Mobilization shld Body Location L pec, deltoid, infrasp, suprasp, rhomboid Mobilization Type Rolling,Sustained Pressure, Other Body Position R Sidelying Comments STMs /c scapulothoracic PROM Joint Mobilizations L scapulothoracic Joint L Direction retraction/depression Grade II Body Position Sidelying Comments STMs /c AAROM to support scap set positioning for isometrics , good feedback tension reduction parascapular B GH Jt Joint L Direction posterior, inferior Grade II Body Position Hooklying Comments gentle PROM- good feedback response, pain relief Manual Techniques PROM Type L: FF approx 150 deg, ABD approx 60 deg, ER shld Body Location L shld Body Position Hooklying Comments painfree range Self-Care/Home Management Treatment Education Patient Education Home Exercise Program,Joint Protection,Pain Management, Posture Other Education Initiated pendulum and scap retraction for post op ex review. DIscussed for post op- have friend assist for few days/ week + and be aware post op care support, be there at hospital CGTraining for after surgery. Button up shirts beneficial. Has no stairs need to navigate. PT-OP-T Assessment and Plan Start: 09/30/23 16:01 Freq: Status: Active Protocol: Document 11/23/23 14:36 SP (Rec: 11/23/23 15:49 SP [id number]) Physical Therapy Assessment Goals One Impairment Pt does not have an appropriate home exercise program Short Term Goal (STG) Pt to be independent and compliant with an appropriate HEP STG Duration Met Three Impairment Shoulder pain when holding her phone more than a few minutes Impairment NDI is 13 (20-39% impaired), UE Quickdash is 22.72 (20-39% impaired) Poultry Scalder Goal (LTG) Pt to report shoulder pain of 3/10 at worst in order to reduce limitations in ability to hold objects LTG Duration 12/01/23 Two Impairment Pt struggles to style her hair due to limitations in bilateral shoulder ROM Impairment . Poultry Scalder Goal (LTG) Pt to increase active shoulder abduction bilaterally to >120 ? in order to improve ability to wash and style hair without pain LTG Duration 12/01/23 Assessment Summary Assessment Pt reported decreased L shld pain post manual and improved parascapular ROM post education and tactile cues with good carryover understanding with self scap positioning during isometrics. Pt reports less pain noted in L shld end tx. Initiated pendulum and scapular retraction review for post- op mobiltiy and double check with physican will be able to do after surgery. Physical Therapy Plan Frequency and Duration Frequency of Treatment 2x/Week Plan of Care Start Date 09/30/23 Plan of Care End Date 12/01/23 Therapeutic Interventions Therapeutic Interventions Home Exercise Program,Joint Mobilizations,Manual Therapy, Neuromuscular Re-education, Patient/Caregiver Education, Self-Care/Home Management,Soft Tissue Mobilization, Therapeutic Activities, Therapeutic Exercises Next Visit Focus/Plan Next Note Type Discharge Summary Next Visit Plan DC to HEP, Set up for surger L shld. REcheck HEP isometrics plus what ex to do until surgery. Ask response and performance pendulum and scap retraction provided/performed (give printed HOs forgot provide last tx).
--- NOTE | 2023-11-26 12:30 | PT.OPPN ---
Current Diagnoses Pain in right shoulder (11/26/23) Pain in left shoulder (11/26/23) Stiffness of right shoulder, not elsewhere classified (11/26/23) Stiffness of left shoulder, not elsewhere classified (11/26/23) Physical Therapy Progress Note PT-OP-A Visit Information Start: 09/30/23 16:01 Freq: Status: Active Protocol: Document 11/26/23 12:00 DCW (Rec: 11/26/23 12:30 DCW [id number]) Out-Patient Physical Therapy Visit Information Visit Information Visit Type Discharge Summary Visit Start Time 12:00 Visit Stop Time 12:25 Visit Number 9 Number of ACCOUNTING METHODS ANALYST Visits 0 Evaluation Information Evaluation Date 09/30/23 Precautions Precautions 10/07/23 MRI R shld & L shld at . PT-OP-B Current Condition Start: 09/30/23 16:01 Freq: Status: Active Protocol: Document 09/30/23 12:00 DCW (Rec: 10/01/23 08:57 DCW [id number]) Current Condition History of Current Condition Onset Date Jul, 2023 Current Complaints Bilateral shoulder pain and decreased ROM History of Current Condition Pt is a 78 year old female presenting to skilled therapy due to bilateral shoulder injuries. Pt's injuries were caused by two different events a week apart. Pt reports that two months ago, she was lifting a wheelchair into her car with her right arm, felt a pop, and immediately began experiencing fairly significant pain and limited mobility of her right arm. One week later, she was visiting her children/grandchildren out of state, tripped over her grandson's Lego box, and fell directly on her left arm. One again, experiencing immediate pain and limited mobility. Did receive an x-ray at the time, which was unremarkable. Pt reports she is struggling to do anything overhead or reaching back, including washing/styling her hair, washing her back, or hooking her bra. Arms hurt when driving, and notes increased pain even when trying to hold her phone more than a few minutes. PT-OP-C Subjective Start: 09/30/23 16:01 Freq: Status: Active Protocol: Document 11/26/23 12:00 DCW (Rec: 11/26/23 12:30 DCW [id number]) OP-PT Subjective Patient Comments Patient Comments Pt ready for discharge in prep for surgical intervention in three weeks PT-OP-E Functional Tests Start: 09/30/23 16:01 Freq: Status: Active Protocol: Document 11/26/23 12:00 DCW (Rec: 11/26/23 12:25 DCW [id number]) Functional Tests Apley's Scratch Test Action 1: The subject is instructed to touch the opposite shoulder with his/her hand. This motion checks Glenohumeral adduction, internal rotation , horizontal adduction and scapular protraction Action 2: The subject is instructed to place his/her arm overhead and reach behind the neck to touch his/her upper back. This motion checks Glenohumeral abduction, external rotation and scapular upward rotation and elevation. Action 3: The subject puts his/her hand on the lower back and reaches upward as far as possible. This motion checks glenohumeral adduction, internal rotation and scapular retraction with downward rotation Action 1- Left Anterior opposite shoulder Action 1- Right Lateral opposite shoulder Action 2- Left C6 Action 2- Right T1 Action 3- Left T12 Action 3- Right T6 PT-OP-F Manual Assessment Start: 09/30/23 16:01 Freq: Status: Active Protocol: Document 11/26/23 12:00 DCW (Rec: 11/26/23 12:25 DCW [id number]) Manual Assessments Soft Tissue Assessment Soft Tissue Mobility Assessment Moderate tone of R subscapularis along lateral edge of scapula PT-OP-K Range of Motion Start: 09/30/23 16:01 Freq: Status: Active Protocol: Document 11/26/23 12:00 DCW (Rec: 11/26/23 12:25 DCW [id number]) Shoulder Goniometric Range of Motion Shoulder Measured in Degrees Right Active Testing Position Sitting Flexion 132 Abduction 118 External Rotation at 0 degrees Abduction 32 Internal Rotation Behind Back (text) T6 Left Active Testing Position Sitting Flexion 116 Abduction 89 External Rotation at 0 degrees Abduction 52 Internal Rotation Behind Back (text) T12 PT-OP-L Special Tests Start: 09/30/23 16:01 Freq: Status: Active Protocol: Document 09/30/23 12:00 DCW (Rec: 10/01/23 08:46 DCW [id number]) Special Tests Shoulder Special Tests Speed's Biceps Test Results Positive L Passive ER Rotator Cuff Test Results Positive R Lift-Off Rotator Cuff Test Results Positive B Mast Tolu Impingement Test Results Negative Grind Labrum Test Results Positive L Empty Can Test Results Positive L Drop Arm Rotator Cuff Test Results Negative Belly Press Test Results Positive B Apprehension Test Test Results Positive L PT-OP-M Strength Start: 09/30/23 16:01 Freq: Status: Active Protocol: Document 09/30/23 12:00 DCW (Rec: 10/01/23 08:46 DCW [id number]) Shoulder Strength Shoulder Manual Muscle Testing Right Flexion 2 Poor Abduction (C5) 2 Poor Internal Rotation 2- Poor- Horizontal Abduction 3- Fair- Left Flexion 2 Poor Abduction (C5) 2 Poor External Rotation 3- Fair- Internal Rotation 3- Fair- PT-OP-T Assessment and Plan Start: 09/30/23 16:01 Freq: Status: Active Protocol: Document 11/26/23 12:00 DCW (Rec: 11/26/23 12:30 DCW [id number]) Physical Therapy Assessment Impairments Impairments Functional Activities, Functional Mobility,Pain,ROM, Soft Tissue Mobility,Strength, Tone Goals One Impairment Pt does not have an appropriate home exercise program Short Term Goal (STG) Pt to be independent and compliant with an appropriate HEP STG Duration Met Three Impairment Shoulder pain when holding her phone more than a few minutes Alf Goal (LTG) Pt to report shoulder pain of 3/10 at worst in order to reduce limitations in ability to hold objects LTG Duration 12/01/23 Two Impairment Pt struggles to style her hair due to limitations in bilateral shoulder ROM Impairment . Clay Stain Mixer Goal (LTG) Pt to increase active shoulder abduction bilaterally to >120 ? in order to improve ability to wash and style hair without pain LTG Duration 12/01/23 Progress Towards Goals Progress Towards Goals Slow Progress due to Medical Issues Assessment Summary Assessment Some moderate changes in active ROM bilaterally since initial evaluation, however has largely plateaued. Pt discharging due to upcoming surgical intervention, planned left reverse total shoulder replacement. Plans to return to PT with a new referral post -op. Physical Therapy Plan Frequency and Duration Frequency of Treatment 2x/Week Plan of Care Start Date 09/30/23 Plan of Care End Date 12/01/23 Therapeutic Interventions Therapeutic Interventions Home Exercise Program,Joint Mobilizations,Manual Therapy, Neuromuscular Re-education, Patient/Caregiver Education, Self-Care/Home Management,Soft Tissue Mobilization, Therapeutic Activities, Therapeutic Exercises Discharge Physical Therapy Discharge Comments Planned left reverse TSA Next Visit Focus/Plan Next Note Type Discharge Summary
== END 2023-11-30 13:44 | disposition home or self-care (01) ==
LOC: PHYS 12:00
PROVIDERS: Family Provider Family Medicine; PCP Family Medicine; Referring Provider Family Medicine; Visit Provider Family Medicine
DX: M25.511 Pain in right shoulder (principal); M25.512 Pain in left shoulder; M25.612 Stiffness of left shoulder, not elsewhere classified; M25.611 Stiffness of right shoulder, not elsewhere classified
CPT/HCPCS: 93010; 97110; 97140; 97163; 97535

== ENCOUNTER 2023-12-16 07:04 | Day surgery (SDC) | payer MEDICARE, OTHER, SELFPAY ==
[2023-12-09 10:00] VITALS: BMI 25.9
--- NOTE | 2023-12-16 | DI.RAD.S_ITS ---
PROCEDURE: XR SHOULDER LT 1V INDICATIONS: TOTAL LEFT SHOULDER TECHNIQUE: 1 view of the shoulder were acquired. COMPARISON: [facility], CR, XR SHOULDER 2+ VIEWS BILATERAL, 11/01/2023, 14:32. [facility], CR, XR SHOULDER RT MIN 2V, 09/19/2021, 7:53. 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 Expected postsurgical edema and emphysema. IMPRESSION: Status post reversed total shoulder arthroplasty in expected position. Dictated by: Nas Gonzalez M.D. on 12/16/2023 at 17:17 Approved by: Nas Gonzalez M.D. on 12/16/2023 at 17:18
[2023-12-16 07:19] VITALS: BP 107/67; PULSE 67; RESP 16; TEMP 36.5; O2SAT 100; BMI 25.5
--- NOTE | 2023-12-16 07:36 | SUR.OPER ---
Beach chair with Carlos/Rubio shoulder positioner. Lower body on padded OR bed. Head in foam padded head cradle, secured with straps. Non-operative arm secured <90 degrees abduction. Pillow under knees. Safety belt at thigh. Cloth tape over blanket over lower legs.
--- NOTE | 2023-12-16 07:55 | PM.PREOP ---
Pre-operative Note Interval Note History & Physical reviewed/Exam performed by Physician: Yes Changes to H&P: No
[2023-12-16] MEDS: CEFAZOLIN 2 GM/100 ML PREMIX 100 ML IV (08:30)
[2023-12-16] MEDS: TRANEXAMIC ACID 1,000 MG in SODIUM CHLORIDE 0.9% 100 ML 200 MG IV (08:30)
[2023-12-16] MEDS: LACTATED RINGERS 1,000 ML 42 ML IV (08:56)
[2023-12-16] MEDS: BUPIVACAINE 0.25% (PF) 30 ML, EPINEPHrine 0.15 MG INJ (08:59)
[2023-12-16 10:00] VITALS: BP 166/63; PULSE 76; RESP 18; TEMP 36.5; O2SAT 95
[2023-12-16 10:05] VITALS: BP 106/57; PULSE 76; RESP 20; O2SAT 94
[2023-12-16 10:10] VITALS: BP 108/55; PULSE 771; RESP 16; O2SAT 94
[2023-12-16 10:15] VITALS: BP 98/53; PULSE 71; RESP 22; TEMP 36.2; O2SAT 95
[2023-12-16 10:30] VITALS: BP 96/54; PULSE 58; RESP 14; TEMP 36.2; O2SAT 98
--- NOTE | 2023-12-16 15:01 | PM.OP.1 ---
Operative Date/Time/Diagnoses Date of procedure: 12/16/23 Time of procedure: 15:01 Pre-op diagnosis: Left rotator cuff arthropathy Post-op diagnosis: same Procedure & Clinicians Procedure: Left reverse total shoulder arthroplasty Same procedure as scheduled: Yes Indications: Indications: This is a 78-year-old female who has rotator cuff arthropathy. Symptoms have been present for years, insidious onset. Patient has failed a reasonable attempt at conservative therapy. After extensive discussion in clinic, they wished to go forward with surgery. Risks and benefits were described including the risk of infection, bleeding, damage to internal structures including nerves. We also discussed the risk of failure of surgery and the need for revision surgery as well as the risk of anesthesia. The patient expressed understanding with these risks and wished to go forward with surgery. Surgeon: Nils Lopez Photostatic Copy Maker: Austin Noriega Anesthesia Type: General Operative Notes Findings: Findings: Osteoarthritis of the glenoid and humeral head as well as a defient rotator cuff as noted on preoperative imaging and under direct visualization Closure Type: primary Specimen(s): none sent Prosthetic devices, grafts, tissues, transplants, or devices: Tornier implants Base plate: standard 25 mm, +3 mm offset Glenosphere: Standard 36 mm Stem: Perform 2+ Poly: +0 concentric Estimated Blood Loss (mL): 100 Blood products transfused: none Procedure in detail: Patient was seen in the preoperative holding unit. The correct left shoulder was identified and marked with my initials. Again we discussed the risks and benefits of surgery and they wished to go forward with surgery. The patient was brought back to the operating room and placed supine on the operating table. Smooth endotracheal intubation was performed by anesthesia. All prominences were padded and they were placed into the beach chair position. Intravenous antibiotics were given. The left shoulder was then prepped with the standard sterile preparation and draping. A time-out was then performed in my initials were again identified on the correct shoulder. 1 g of IV tranexamic acid was given. A standard deltopectoral incision was made. Skin flaps were made. The cephalic vein was identified and retracted laterally. This was protected throughout the remainder of the case. Sharp dissection was made along the deltoid, subacromial and subcoracoid space to release adhesions. The conjoined tendon was identified and the axillary nerve was palpated and continuous using the tug test. It was protected throughout the remainder of the case. A brown retractor was placed underneath the deltoid muscle and a darach retractor underneath the conjoint tendon. The subscapularis muscle was ntoed to be intact. The anterior circumflex artery and associated veins on the lower border of the subscapularis were identified and tied off using 0-Vicryl. The biceps tendon was identified in the bicipital groove. This was released from its sheath, and taken from its origin on the glenoid and tied into the pectoralis tendon for a solid tenodesis. We then began a subscapularis peel. The subscapularis was tagged with an Ethibond suture. A 360 degree circumferential release of the subscapularis was performed with protection of the axillary nerve. The coracohumeral ligament was released at the base of the coracoid. The shoulder was then dislocated. Osteophytes were removed using combination of rongeur and osteotome. The rotator cuff was noted to be insufficient. An intramedullary guide was used set at version of 20?. Using an oscillating saw a conservative humeral head cut was made. Impaction reamers were reamed up to a size 2 stem with a built-in angle 135?. A neck protector was placed. Attention was then turned to the glenoid. After retracting the humeral head posteriorly a circumferential release was performed of the capsule with protection of the axillary nerve. The labrum was then released starting at the biceps anchor and going around the rim a small amount of triceps was released from the inferior glenoid. A center guide pin was then placed using the guide, followed by Reamer. After adequate cartilage was removed the boss was reamed and the centeral hole was drilled and measured. The base plate was then implanted and screwed into place. The peripheral screws were then sequentially drilled, measured, and placed. A 36 standard glenosphere was then selected and screwed into place onto the base plate. Turning back to the humerus, the humeral head was delivered and trialed with a 0 concentric. The arm was taken through range of motion and this was felt to be stable. The trial was then removed and a dilute Betadine wash was then performed with 1 L of sterile saline. Before placing the final implant, drill holes were made in the bicipital groove for the subscapularis repair, and sutures were passed through the drill holes. The final stem was then impacted into the humerus. The shoulder was then reduced and again brought through range of motion and was felt to be stable. The subscapularis was then repaired using a modified racking hitch with nice loupes. The skin was closed with 2-0 vicryl and 3-0 Monocryl followed by Aquacel dressing. Patient was awoken from anesthesia and brought back to the postoperative recovery unit without issue. They were placed into a sling. Assisting participation: This operation could not have been safely performed (without compromising the technical results or length of the procedure) without the assistance of a skilled assistant baseball coach. The assistant baseball coach was medically necessary for proper positioning, retraction and manipulation of instruments, proper exposure, graft prep, and manipulation of tissue. Post-operative Condition: stable Disposition: PACU Plan for aftercare: Postoperative instructions: Sling to remain on for 6 weeks. No external rotation past neutral for 6 weeks. Okay for the sling to come off for shower. Okay to shower over the Aquacel dressing. If any water gets underneath the dressing, remove the dressing. First postoperative visit in 2 weeks.
== END 2023-12-16 11:18 | disposition home or self-care (01) ==
LOC: OR 07:05 → AC 07:07
PROVIDERS: Family Provider Family Medicine; PCP Family Medicine; Referring Provider Orthopaedic Surgery; Visit Provider Orthopaedic Surgery
PROC: (CPT 23472; principal; 2023-12-16 09:00)
DX: M19.012 Primary osteoarthritis, left shoulder (principal); G89.18 Other acute postprocedural pain; M25.712 Osteophyte, left shoulder
CPT/HCPCS: 23472; 64415; 73020; C1776; J0171; J0690; J1100; J2405; J2704; J3010

== ENCOUNTER → 2024-02-25 13:29 | Outpatient (CLI) | payer MEDICARE, OTHER, SELFPAY ==
--- NOTE | 2024-02-25 13:30 | DI.MG.S_ITS ---
UNILATERAL LEFT DIGITAL DIAGNOSTIC MAMMOGRAM 3D/2D WITH ADDITIONAL VIEWS: 02/25/2024 CLINICAL: Additional evaluation requested from prior study. Comparison is made to exams dated: 11/02/2023 mammogram, 09/29/2022 mammogram, and 03/10/2021 mammogram - [facility]. The breasts are heterogeneously dense, which may obscure small masses (category c / 51-75% glandular tissue). The oval focal asymmetry with an obscured margin in the left breast at 1 o'clock posterior depth is no longer seen and most likely is summation artifact of fibroglandular tissue. This is not confirmed in additional views. No other significant masses or calcifications are seen in the breast. IMPRESSION: BENIGN The oval focal asymmetry with an obscured margin in the left breast at 1 o'clock posterior depth is no longer seen and most likely is summation artifact of fibroglandular tissue. There is no mammographic evidence of malignancy. A 1 year screening mammogram is recommended. Findings and recommendations were conveyed to the patient during today's evaluation. Based on the Tyrer Cuzick model (a risk assessment model) the patient's lifetime risk is 11.1% and her 10 year risk is 0.0%. According to the ACR, ACS, and NCCN guidelines, an annual breast MRI exam along with mammogram is recommended if the patient's lifetime risk is 20% or greater. This exam was interpreted at Station ID: [id number]. NOTE: For mammograms, a report in lay terms will be sent to the patient. Approximately 15% of breast malignancies will not be visualized mammographically. In the management of a palpable breast mass, a negative mammogram must not discourage biopsy of a clinically suspicious lesion. Electronically Signed By: Norm Berg M.D. aty/:02/25/2024 14:43:20 ACR BI-RADS Category 2: Benign
== END ==
LOC: MAMMO 13:30
PROVIDERS: Family Provider Family Medicine; PCP Family Medicine; Referring Provider Family Medicine; Visit Provider Family Medicine
DX: R92.8 Other abnormal and inconclusive findings on diagnostic imaging of breast (principal); R92.333 Mammographic heterogeneous density, bilateral breasts
CPT/HCPCS: 77065; G0279

== ENCOUNTER → 2024-04-06 11:08 | Outpatient (CLI) | payer MEDICARE, OTHER, SELFPAY ==
[2024-04-06 12:04] LABS: Add Manual Diff / Slide Review NO; Basophils Absolute Auto 0 /uL (0-100); Basophils Percent Auto 0.8 % (0-2); Eosinophils Absolute Auto 100 /uL (0-450); Eosinophils Percent Auto 1.8 % (2-4); Hematocrit 39.9 % (36-46); Hemoglobin 13.3 g/dL (12.0-16.0); Lymphocytes Absolute Auto 1900 /uL (1100-4500); Lymphocytes Percent Auto 33.9 % (25-40); Mean Corpuscular HGB Conc 33.4 % (30-36); Mean Corpuscular Hemoglobin 30.7 PG (26-34); Mean Corpuscular Volume 91.8 fL (80-100); Monocytes Absolute Auto 700 /uL (0-900); Monocytes Percent Auto 12.3 % (3-14); Neutrophils Absolute Auto 2900 /uL (1500-7000); Neutrophils Percent Auto 51.2 % (50-75); Platelet Count 265 X10^3/uL (150-400); Red Blood Cell Count 4.35 X10^6/uL (4.0-5.2); White Blood Cell Count 5.7 X10^3/uL (4.5-11.0)
[2024-04-06 12:22] LABS: Alanine Aminotransferase 25 IU/L (<35); Albumin 4.3 g/dL (3.5-5.0); Albumin Globulin Ratio 1.8 (1.0-2.8); Alkaline Phosphatase 109 U/L (38-126); Aspartate Aminotransferase 34 IU/L (14-36); BUN Creatinine Ratio 31.7 (6-22); Bilirubin Total 0.7 mg/dL (0.2-1.3); Blood Urea Nitrogen 20 mg/dL (7-17); Calcium 9.8 mg/dL (8.4-10.2); Carbon Dioxide 28 mmol/L (22-32); Chloride 101 mmol/L (98-107); Cholesterol 189 mg/dL (140-199); Estimated Glomerular Filt Rate > 60 mL/min (>60); Globulin 2.4 g/dL (1.7-4.1); Glucose 103 mg/dL (80-110); HDL Cholesterol 105 mg/dL (40-60); HEMOLYSIS < 15 (0-50); LDL Cholesterol Calculated 74 mg/dL (<100); Potassium 4.5 mmol/L (3.4-5.1); Sodium 136 mmol/L (137-145); Total Protein 6.7 g/dL (6.3-8.2); Triglycerides 52 mg/dL (35-150)
[2024-04-06 12:51] LABS: Thyroid Stimulating Hormone 3.79 uIU/mL (0.47-4.68)
== END ==
PROVIDERS: Family Provider Family Medicine; PCP Family Medicine; Referring Provider Family Medicine; Visit Provider Family Medicine
DX: R79.89 Other specified abnormal findings of blood chemistry (principal); E78.00 Pure hypercholesterolemia, unspecified
CPT/HCPCS: 36415; 80053; 80061; 84443; 85025

== ENCOUNTER 2024-08-16 09:45 | Outpatient (RCR) | payer MEDICARE, OTHER, SELFPAY ==
--- NOTE | 2023-12-23 17:45 | PT.OIE ---
Current Diagnoses Pain in left shoulder (12/23/23) Stiffness of left shoulder, not elsewhere classified (12/23/23) Complete rotator cuff tear or rupture of left shoulder, not specified as traumatic (12/23/23) Aftercare following joint replacement surgery (12/23/23) Past Medical History (Last Updated 12/09/23 @ 10:41 by Deana Williamson, RN) Osteoarthritis Raynaud disease Past Surgical History (Last Updated 12/09/23 @ 10:41 by Deana Williamson, RN) H/O total knee replacement (2019) Visit Care Team Role Provider Type Natalie Garcia MD Family Provider Physician Primary Care Provider Specialty: Family Practice Address: [address] [place] [address], [address] Email: [email or web address] [email or web address] MD Attending Provider Physician Referring Provider Specialty: Orthopedics Orthopedic Surgery Address: [address] [place] [address], [address] Email: [email or web address] Physical Therapy Initial Evaluation PT-OP-A Visit Information Start: 12/23/23 17:46 Freq: Status: Active Protocol: Document 12/23/23 17:00 DCW (Rec: 12/23/23 17:50 DCW [id number]) Out-Patient Physical Therapy Visit Information Visit Information Visit Type Initial Evaluation Visit Start Time 17:00 Visit Stop Time 17:40 Visit Number 1 Number of GOLD BEATER Visits 0 Evaluation Information Evaluation Date 12/23/23 Precautions Precautions No ER past neutral until 6 weeks post-op PT-OP-B Current Condition Start: 12/23/23 17:46 Freq: Status: Active Protocol: Document 12/23/23 17:00 DCW (Rec: 12/24/23 09:44 DCW [id number]) Current Condition History of Current Condition Onset Date 12/16/23 Current Complaints Right reverse Total shoulder replacement History of Current Condition Pt is a 78 year old female presenting one week s/p right rTSA following failure of conservative treatment of full -thickness supraspinatus and partial-thickness infraspinatus and subscapularis tears. Pt notes her pain is largely gone following surgery. Has already weaned herself off pain pills , and is taking extra-strength tylenol 3x/day. Has been compliant with post-op sling use, only removing for showers . Admits she has done pendulums a few times, but not as frequently as she should be. Pt has been trying really hard to behave myself and follow directions. PT-OP-C Subjective Start: 12/23/23 17:46 Freq: Status: Active Protocol: Document 12/23/23 17:00 DCW (Rec: 12/23/23 17:50 DCW [id number]) OP-PT Subjective Patient Comments Patient Comments I really didn't have much pain after the first few days. Patient Reported Progress Improving Patient Questionnaires Quick Dash- Upper Extremity Quick Dash UE Score 90.91% Quick Dash UE Impairment 80 to 99% Impaired (Score 80- 99) PT-OP-K Range of Motion Start: 12/23/23 17:46 Freq: Status: Active Protocol: Document 12/23/23 17:00 DCW (Rec: 12/23/23 17:51 DCW [id number]) Shoulder Goniometric Range of Motion Shoulder Left Passive Shoulder ROM WFL No Testing Position Sitting Flexion 62 Abduction 45 External Rotation at 0 degrees Abduction 0 Right Active Shoulder ROM WFL Yes Testing Position Sitting Flexion 170 Abduction 180 PT-OP-M Strength Start: 12/23/23 17:46 Freq: Status: Active Protocol: Document 12/23/23 17:00 DCW (Rec: 12/23/23 17:51 DCW [id number]) Shoulder Strength Shoulder Manual Muscle Testing Left Comments NT due to post-op protocol PT-OP-Q Treatments Start: 12/23/23 17:46 Freq: Status: Active Protocol: Document 12/23/23 17:00 DCW (Rec: 12/23/23 17:50 DCW [id number]) Therapeutic Exercises Sitting Exercises Elbow Flexion Sitting Exercise Name Elbow flexion AROM Side left Pronation Sitting Exercise Name Forearm pronation/supination AROM Wrist Circles Sitting Exercise Name Wrist Circles AROM Side left Standing Exercises Pendulums Standing Exercise Name PROM Pendulums Side left PT-OP-T Assessment and Plan Start: 12/23/23 17:46 Freq: Status: Active Protocol: Document 12/23/23 17:00 DCW (Rec: 12/24/23 16:23 DCW [id number]) Physical Therapy Assessment Rehab Potential Rehabilitation Potential Good Evaluation Complexity Number of Personal Factors/Comorbidities 1-2 Number of Body Systems Impaired 4 or More Clinical Presentation at Evaluation Stable Impairments Impairments Activity Tolerance,Functional Activities,Functional Mobility ,Pain,ROM,Soft Tissue Mobility ,Strength,Tone Goals One Impairment Pt does not have an appropriate home exercise program Short Term Goal (STG) Pt to be independent and compliant with an appropriate HEP STG Duration 01/23/24 Three Impairment Pt scores a 90.91% disability on the QuickDASH Impairment . Fpc Goal (LTG) Pt to improve score on the QuickDASH to <50% in order to indicate an increased in ability to perform iALDs independently LTG Duration 02/23/24 Two Impairment Pt unable to perform AROM with right shoulder Fpc Goal (LTG) Pt to demonstrate 90? flexion and abduction in right shoulder AROM as progressed within post-op protocol in order to return to prior functional levels LTG Duration 02/23/24 Assessment Summary Assessment Pt presenting to skilled therapy one week s/p right reverse total shoulder replacement. Pt reports following post-op protocol at this time, removing sling only for showering and occasional pendulums. PROM measured today at 62? flexion, 45? abduction , and ER to neutral. Reviewed technique for pendulums, as well as added wrist circles, elbow flexion, and stress ball squeezes. Physical Therapy Plan Frequency and Duration Frequency of Treatment 2x/Week Plan of Care Start Date 12/23/23 Plan of Care End Date 02/22/24 Therapeutic Interventions Therapeutic Interventions Home Exercise Program,Joint Mobilizations,Manual Therapy, Neuromuscular Re-education, Patient/Caregiver Education, Self-Care/Home Management,Soft Tissue Mobilization, Therapeutic Activities, Therapeutic Exercises Modalities Cold Pack/Ice Massage,Electric Stimulation,Hot Packs Next Visit Focus/Plan Next Note Type Treatment Note Next Visit Plan PROM, shoulder mobility
--- NOTE | 2023-12-23 17:45 | PT.OPPOC ---
Physical, Occupational & Speech Therapy At [facility] Current Diagnoses Pain in left shoulder (12/23/23) Stiffness of left shoulder, not elsewhere classified (12/23/23) Complete rotator cuff tear or rupture of left shoulder, not specified as traumatic (12/23/23) Aftercare following joint replacement surgery (12/23/23) Visit Care Team Role Provider Type Natalie Garcia MD Family Provider Physician Primary Care Provider Specialty: Family Practice Address: [address] [place] [address] [place], [address] Email: [email or web address] Nils Lopze MD Attending Provider Physician Referring Provider Specialty: Orthopedics Orthopedic Surgery Address: [address] [place] [address], [address] Email: [email or web address] Plan Of Care PT-OP-B Current Condition Start: 12/23/23 17:46 Freq: Status: Active Protocol: Document 12/23/23 17:00 DCW (Rec: 12/24/23 09:44 DCW [id number]) Current Condition History of Current Condition Onset Date 12/16/23 Current Complaints Right reverse Total shoulder replacement History of Current Condition Pt is a 78 year old female presenting one week s/p right rTSA following failure of conservative treatment of full -thickness supraspinatus and partial-thickness infraspinatus and subscapularis tears. Pt notes her pain is largely gone following surgery. Has already weaned herself off pain pills , and is taking extra-strength tylenol 3x/day. Has been compliant with post-op sling use, only removing for showers . Admits she has done pendulums a few times, but not as frequently as she should be. Pt has been trying really hard to behave myself and follow directions. PT-OP-T Assessment and Plan Start: 12/23/23 17:46 Freq: Status: Active Protocol: Document 12/23/23 17:00 DCW (Rec: 12/24/23 16:23 DCW [id number]) Physical Therapy Assessment Rehab Potential Rehabilitation Potential Good Evaluation Complexity Number of Personal Factors/Comorbidities 1-2 Number of Body Systems Impaired 4 or More Clinical Presentation at Evaluation Stable Impairments Impairments Activity Tolerance,Functional Activities,Functional Mobility ,Pain,ROM,Soft Tissue Mobility ,Strength,Tone Goals One Impairment Pt does not have an appropriate home exercise program Short Term Goal (STG) Pt to be independent and compliant with an appropriate HEP STG Duration 01/23/24 Three Impairment Pt scores a 90.91% disability on the QuickDASH Impairment . Fpc Goal (LTG) Pt to improve score on the QuickDASH to <50% in order to indicate an increased in ability to perform iALDs independently LTG Duration 02/23/24 Two Impairment Pt unable to perform AROM with right shoulder Fpc Goal (LTG) Pt to demonstrate 90? flexion and abduction in right shoulder AROM as progressed within post-op protocol in order to return to prior functional levels LTG Duration 02/23/24 Assessment Summary Assessment Pt presenting to skilled therapy one week s/p right reverse total shoulder replacement. Pt reports following post-op protocol at this time, removing sling only for showering and occasional pendulums. PROM measured today at 62? flexion, 45? abduction , and ER to neutral. Reviewed technique for pendulums, as well as added wrist circles, elbow flexion, and stress ball squeezes. Physical Therapy Plan Frequency and Duration Frequency of Treatment 2x/Week Plan of Care Start Date 12/23/23 Plan of Care End Date 02/22/24 Therapeutic Interventions Therapeutic Interventions Home Exercise Program,Joint Mobilizations,Manual Therapy, Neuromuscular Re-education, Patient/Caregiver Education, Self-Care/Home Management,Soft Tissue Mobilization, Therapeutic Activities, Therapeutic Exercises Modalities Cold Pack/Ice Massage,Electric Stimulation,Hot Packs Next Visit Focus/Plan Next Note Type Treatment Note Next Visit Plan PROM, shoulder mobility Plan of Care Dates Plan of Care Start Date 12/23/23 Plan of Care End Date 02/22/24 Electronically Signed by: Vince Amin, PT 12/24/23 6739 If you are in agreement with this Plan of Care, please return a signed and dated copy. I have reviewed this Plan of Care and certify that the skilled therapy services above are required to meet the patient?s needs. Physician Signature Date Printed Name and Credentials Clinical Instructor Signature Printed Name and Credentials
--- NOTE | 2023-12-24 16:24 | PT.OIE ---
Current Diagnoses Pain in left shoulder (12/23/23) Stiffness of left shoulder, not elsewhere classified (12/23/23) Complete rotator cuff tear or rupture of left shoulder, not specified as traumatic (12/23/23) Aftercare following joint replacement surgery (12/23/23) Past Medical History (Last Updated 12/09/23 @ 10:41 by Deana Williamson, RN) Osteoarthritis Raynaud disease Past Surgical History (Last Updated 12/09/23 @ 10:41 by Deana Williamson, RN) H/O total knee replacement (2019) Visit Care Team Role Provider Type Natalie Garcia MD Family Provider Physician Primary Care Provider Specialty: Family Practice Address: [address] [place] [address], [id number] Email: [email or web address] Nils Lopez MD Attending Provider Physician Referring Provider Specialty: Orthopedics Orthopedic Surgery Address: [address] [place] [address], [address] Email: [email or web address] Physical Therapy Initial Evaluation PT-OP-A Visit Information Start: 12/23/23 17:46 Freq: Status: Active Protocol: Document 12/23/23 17:00 DCW (Rec: 12/23/23 17:50 DCW [id number]) Out-Patient Physical Therapy Visit Information Visit Information Visit Type Initial Evaluation Visit Start Time 17:00 Visit Stop Time 17:40 Visit Number 1 Number of CHILD SUPPORT OFFICER Visits 0 Evaluation Information Evaluation Date 12/23/23 Precautions Precautions No ER past neutral until 6 weeks post-op PT-OP-B Current Condition Start: 12/23/23 17:46 Freq: Status: Active Protocol: Document 12/23/23 17:00 DCW (Rec: 12/24/23 09:44 DCW [id number]) Current Condition History of Current Condition Onset Date 12/16/23 Current Complaints Right reverse Total shoulder replacement History of Current Condition Pt is a 78 year old female presenting one week s/p right rTSA following failure of conservative treatment of full -thickness supraspinatus and partial-thickness infraspinatus and subscapularis tears. Pt notes her pain is largely gone following surgery. Has already weaned herself off pain pills , and is taking extra-strength tylenol 3x/day. Has been compliant with post-op sling use, only removing for showers . Admits she has done pendulums a few times, but not as frequently as she should be. Pt has been trying really hard to behave myself and follow directions. PT-OP-C Subjective Start: 12/23/23 17:46 Freq: Status: Active Protocol: Document 12/23/23 17:00 DCW (Rec: 12/23/23 17:50 DCW [id number]) OP-PT Subjective Patient Comments Patient Comments I really didn't have much pain after the first few days. Patient Reported Progress Improving Patient Questionnaires Quick Dash- Upper Extremity Quick Dash UE Score 90.91% Quick Dash UE Impairment 80 to 99% Impaired (Score 80- 99) PT-OP-K Range of Motion Start: 12/23/23 17:46 Freq: Status: Active Protocol: Document 12/23/23 17:00 DCW (Rec: 12/23/23 17:51 DCW [id number]) Shoulder Goniometric Range of Motion Shoulder Left Passive Shoulder ROM WFL No Testing Position Sitting Flexion 62 Abduction 45 External Rotation at 0 degrees Abduction 0 Right Active Shoulder ROM WFL Yes Testing Position Sitting Flexion 170 Abduction 180 PT-OP-M Strength Start: 12/23/23 17:46 Freq: Status: Active Protocol: Document 12/23/23 17:00 DCW (Rec: 12/23/23 17:51 DCW [id number]) Shoulder Strength Shoulder Manual Muscle Testing Left Comments NT due to post-op protocol PT-OP-Q Treatments Start: 12/23/23 17:46 Freq: Status: Active Protocol: Document 12/23/23 17:00 DCW (Rec: 12/23/23 17:50 DCW [id number]) Therapeutic Exercises Sitting Exercises Elbow Flexion Sitting Exercise Name Elbow flexion AROM Side left Pronation Sitting Exercise Name Forearm pronation/supination AROM Wrist Circles Sitting Exercise Name Wrist Circles AROM Side left Standing Exercises Pendulums Standing Exercise Name PROM Pendulums Side left PT-OP-T Assessment and Plan Start: 12/23/23 17:46 Freq: Status: Active Protocol: Document 12/23/23 17:00 DCW (Rec: 12/24/23 16:23 DCW [id number]) Physical Therapy Assessment Rehab Potential Rehabilitation Potential Good Evaluation Complexity Number of Personal Factors/Comorbidities 1-2 Number of Body Systems Impaired 4 or More Clinical Presentation at Evaluation Stable Impairments Impairments Activity Tolerance,Functional Activities,Functional Mobility ,Pain,ROM,Soft Tissue Mobility ,Strength,Tone Goals One Impairment Pt does not have an appropriate home exercise program Short Term Goal (STG) Pt to be independent and compliant with an appropriate HEP STG Duration 01/23/24 Three Impairment Pt scores a 90.91% disability on the QuickDASH Impairment . Alf Goal (LTG) Pt to improve score on the QuickDASH to <50% in order to indicate an increased in ability to perform iALDs independently LTG Duration 02/23/24 Two Impairment Pt unable to perform AROM with right shoulder Alf Goal (LTG) Pt to demonstrate 90? flexion and abduction in right shoulder AROM as progressed within post-op protocol in order to return to prior functional levels LTG Duration 02/23/24 Assessment Summary Assessment Pt presenting to skilled therapy one week s/p right reverse total shoulder replacement. Pt reports following post-op protocol at this time, removing sling only for showering and occasional pendulums. PROM measured today at 62? flexion, 45? abduction , and ER to neutral. Reviewed technique for pendulums, as well as added wrist circles, elbow flexion, and stress ball squeezes. Physical Therapy Plan Frequency and Duration Frequency of Treatment 2x/Week Plan of Care Start Date 12/23/23 Plan of Care End Date 02/22/24 Therapeutic Interventions Therapeutic Interventions Home Exercise Program,Joint Mobilizations,Manual Therapy, Neuromuscular Re-education, Patient/Caregiver Education, Self-Care/Home Management,Soft Tissue Mobilization, Therapeutic Activities, Therapeutic Exercises Modalities Cold Pack/Ice Massage,Electric Stimulation,Hot Packs Next Visit Focus/Plan Next Note Type Treatment Note Next Visit Plan PROM, shoulder mobility
--- NOTE | 2023-12-28 15:15 | PT.OTN ---
Current Diagnoses Pain in left shoulder (12/28/23) Stiffness of left shoulder, not elsewhere classified (12/28/23) Complete rotator cuff tear or rupture of left shoulder, not specified as traumatic (12/28/23) Aftercare following joint replacement surgery (12/28/23) Physical Therapy Treatment Note PT-OP-A Visit Information Start: 12/23/23 17:46 Freq: Status: Active Protocol: Document 12/28/23 14:30 DCW (Rec: 12/28/23 15:15 DCW [id number]) Out-Patient Physical Therapy Visit Information Visit Information Visit Type Treatment Note Visit Start Time 14:30 Visit Stop Time 15:15 Visit Number 2 Number of CLINICAL NURSING INSTRUCTOR Visits 0 Evaluation Information Evaluation Date 12/23/23 Precautions Precautions First 3 weeks: ROM Pendulums only Weeks 0-2: Elbow, wrist, finger ROM, no ER past neutral Weeks 2-6: Shoulder PROM, no lifting, no ER past neutral Weeks 6-12 AROM/PROM as tolerated, no lifting more than 3 pounds Months 3-6: Full ROM, progress ot unrestricted lifting Months 6-12: Full ORM, Full weight bearing, no restrictions PT-OP-B Current Condition Start: 12/23/23 17:46 Freq: Status: Active Protocol: Document 12/23/23 17:00 DCW (Rec: 12/24/23 09:44 DCW [id number]) Current Condition History of Current Condition Onset Date 12/16/23 Current Complaints Right reverse Total shoulder replacement History of Current Condition Pt is a 78 year old female presenting one week s/p right rTSA following failure of conservative treatment of full -thickness supraspinatus and partial-thickness infraspinatus and subscapularis tears. Pt notes her pain is largely gone following surgery. Has already weaned herself off pain pills , and is taking extra-strength tylenol 3x/day. Has been compliant with post-op sling use, only removing for showers . Admits she has done pendulums a few times, but not as frequently as she should be. Pt has been trying really hard to behave myself and follow directions. PT-OP-C Subjective Start: 12/23/23 17:46 Freq: Status: Active Protocol: Document 12/28/23 14:30 DCW (Rec: 12/28/23 15:15 DCW [id number]) OP-PT Subjective Patient Comments Patient Comments Has been doing HEP, working on elbow and wrist mobility. Doing pendulums I think I'm doing them right. PT-OP-K Range of Motion Start: 12/23/23 17:46 Freq: Status: Active Protocol: Document 12/23/23 17:00 DCW (Rec: 12/23/23 17:51 DCW [id number]) Shoulder Goniometric Range of Motion Shoulder Left Passive Shoulder ROM WFL No Testing Position Sitting Flexion 62 Abduction 45 External Rotation at 0 degrees Abduction 0 Right Active Shoulder ROM WFL Yes Testing Position Sitting Flexion 170 Abduction 180 PT-OP-M Strength Start: 12/23/23 17:46 Freq: Status: Active Protocol: Document 12/23/23 17:00 DCW (Rec: 12/23/23 17:51 DCW [id number]) Shoulder Strength Shoulder Manual Muscle Testing Left Comments NT due to post-op protocol PT-OP-Q Treatments Start: 12/23/23 17:46 Freq: Status: Active Protocol: Document 12/28/23 14:30 DCW (Rec: 12/28/23 15:15 DCW [id number]) Therapeutic Exercises Sitting Exercises Melter Helper Sitting Exercise Name Racquetball squeeze Side left Elbow Flexion Sitting Exercise Name Elbow flexion AROM Side left Pronation Sitting Exercise Name Forearm pronation/supination AROM Wrist Circles Sitting Exercise Name Wrist Circles AROM Side left Standing Exercises Pendulums Standing Exercise Name PROM Pendulums Side left Manual Therapy Treatment Consent Patient gave verbal consent for manual Yes treatment Other Other Manual Treatments Therapist driven minimal PROM PT-OP-T Assessment and Plan Start: 12/23/23 17:46 Freq: Status: Active Protocol: Document 12/28/23 14:30 DCW (Rec: 12/28/23 15:15 DCW [id number]) Physical Therapy Assessment Impairments Impairments Activity Tolerance,Functional Activities,Functional Mobility ,Pain,ROM,Soft Tissue Mobility ,Strength,Tone Goals One Impairment Pt does not have an appropriate home exercise program Short Term Goal (STG) Pt to be independent and compliant with an appropriate HEP STG Duration 01/23/24 Three Impairment Pt scores a 90.91% disability on the QuickDASH Impairment . Slinger Sequins Goal (LTG) Pt to improve score on the QuickDASH to <50% in order to indicate an increased in ability to perform iALDs independently LTG Duration 02/23/24 Two Impairment Pt unable to perform AROM with right shoulder Slinger Sequins Goal (LTG) Pt to demonstrate 90? flexion and abduction in right shoulder AROM as progressed within post-op protocol in order to return to prior functional levels LTG Duration 02/23/24 Assessment Summary Assessment Pt tolerated shoulder pendulums and elbow, wrist, and hand exercises very well. Pt continues to note minimal pain. Per post-op protocol, able to increase PROM activities following week January 05 Physical Therapy Plan Frequency and Duration Frequency of Treatment 2x/Week Plan of Care Start Date 12/23/23 Plan of Care End Date 02/22/24 Therapeutic Interventions Therapeutic Interventions Home Exercise Program,Joint Mobilizations,Manual Therapy, Neuromuscular Re-education, Patient/Caregiver Education, Self-Care/Home Management,Soft Tissue Mobilization, Therapeutic Activities, Therapeutic Exercises Modalities Cold Pack/Ice Massage,Electric Stimulation,Hot Packs Next Visit Focus/Plan Next Note Type Treatment Note Next Visit Plan PROM, shoulder mobility
--- NOTE | 2024-01-04 10:28 | PT.OTN ---
Current Diagnoses Pain in left shoulder (01/04/24) Stiffness of left shoulder, not elsewhere classified (01/04/24) Complete rotator cuff tear or rupture of left shoulder, not specified as traumatic (01/04/24) Aftercare following joint replacement surgery (01/04/24) Physical Therapy Treatment Note PT-OP-A Visit Information Start: 12/23/23 17:46 Freq: Status: Active Protocol: Document 01/04/24 09:48 SP (Rec: 01/04/24 10:41 SP [id number]) Out-Patient Physical Therapy Visit Information Visit Information Visit Type Treatment Note Visit Start Time 09:48 Visit Stop Time 10:28 Visit Number 3 Number of BICYCLE SUBASSEMBLER Visits 1 Evaluation Information Evaluation Date 12/23/23 Precautions Precautions 12/16/23: s/p reverse L shld First 3 weeks: ROM Pendulums only Weeks 0-2: Elbow, wrist, finger ROM, no ER past neutral Weeks 2-6: Shoulder PROM, no lifting, no ER past neutral Weeks 6-12 AROM/PROM as tolerated, no lifting more than 3 pounds Months 3-6: Full ROM, progress ot unrestricted lifting Months 6-12: Full ORM, Full weight bearing, no restrictions PT-OP-B Current Condition Start: 12/23/23 17:46 Freq: Status: Active Protocol: Document 12/23/23 17:00 DCW (Rec: 12/24/23 09:44 DCW [id number]) Current Condition History of Current Condition Onset Date 12/16/23 Current Complaints Right reverse Total shoulder replacement History of Current Condition Pt is a 78 year old female presenting one week s/p right rTSA following failure of conservative treatment of full -thickness supraspinatus and partial-thickness infraspinatus and subscapularis tears. Pt notes her pain is largely gone following surgery. Has already weaned herself off pain pills , and is taking extra-strength tylenol 3x/day. Has been compliant with post-op sling use, only removing for showers . Admits she has done pendulums a few times, but not as frequently as she should be. Pt has been trying really hard to behave myself and follow directions. PT-OP-C Subjective Start: 12/23/23 17:46 Freq: Status: Active Protocol: Document 01/04/24 09:48 SP (Rec: 01/04/24 10:41 SP [id number]) OP-PT Subjective Patient Comments Patient Comments Pt reports saw Dr last week and xrays looking good. Bandages off. PT-OP-K Range of Motion Start: 12/23/23 17:46 Freq: Status: Active Protocol: Document 12/23/23 17:00 DCW (Rec: 12/23/23 17:51 DCW [id number]) Shoulder Goniometric Range of Motion Shoulder Left Passive Shoulder ROM WFL No Testing Position Sitting Flexion 62 Abduction 45 External Rotation at 0 degrees Abduction 0 Right Active Shoulder ROM WFL Yes Testing Position Sitting Flexion 170 Abduction 180 PT-OP-M Strength Start: 12/23/23 17:46 Freq: Status: Active Protocol: Document 12/23/23 17:00 DCW (Rec: 12/23/23 17:51 DCW [id number]) Shoulder Strength Shoulder Manual Muscle Testing Left Comments NT due to post-op protocol PT-OP-Q Treatments Start: 12/23/23 17:46 Freq: Status: Active Protocol: Document 01/04/24 09:48 SP (Rec: 01/04/24 10:41 SP [id number]) Therapeutic Exercises Sitting Exercises scap squeeze Sitting Exercise Name added to HEP /c HO Side bilateral Resistance AROM Reps/Minutes 3 SH x10 Comments cued tall posture, gentle rhomboid engagement neck stretching Sitting Exercise Name UT, LS added to HEP /c HO Side bilateral Resistance AROM Equipment Used R little gentle over pressure /c RUE if needed Reps/Minutes 20 SH x2 Comments good feedback stretch, cues gentle stretch Standing Exercises Pendulums Standing Exercise Name PROM Pendulums- stand and seated Side left Reps/Minutes 10 reps each direction Comments F/B/Lateral/CW/CCW- slow Manual Therapy Treatment Consent Patient gave verbal consent for manual Yes treatment Soft Tissue Mobilization L shld scar mobility Mobilization Type Rolling Comments gentle scar mobility, ed self application /c no lotion L neck Body Location UT, LS Mobilization Type Myofascial Release,Rolling Intensity/Depth Moderate Body Position R Sidelying Comments gentle STMs reduce neck tension Joint Mobilizations L scapulothoracic Grade II Body Position R SL Comments PROM sup/inf/adduction, AROM adduction depression Manual Techniques PROM Type L shld: abd approx 45 deg, FF approx 70 ft, Rotation belly neutral front ER Body Position Supine Reps/Duration muliple reps PT-OP-R Modalities Start: 01/04/24 10:36 Freq: Status: Active Protocol: Document 01/04/24 09:48 SP (Rec: 01/04/24 10:41 SP [id number]) Hot Pack/Cold Pack Treatment CP Location L shld Patient Position Hooklying Patient Tolerance Good PT-OP-T Assessment and Plan Start: 12/23/23 17:46 Freq: Status: Active Protocol: Document 01/04/24 09:48 SP (Rec: 01/04/24 10:41 SP [id number]) Physical Therapy Assessment Goals One Impairment Pt does not have an appropriate home exercise program Short Term Goal (STG) Pt to be independent and compliant with an appropriate HEP STG Duration 01/23/24 Three Impairment Pt scores a 90.91% disability on the QuickDASH Impairment . Assisted Goal (LTG) Pt to improve score on the QuickDASH to <50% in order to indicate an increased in ability to perform iALDs independently LTG Duration 02/23/24 Two Impairment Pt unable to perform AROM with right shoulder Impairment . Java Development Team Lead Goal (LTG) Pt to demonstrate 90? flexion and abduction in right shoulder AROM as progressed within post-op protocol in order to return to prior functional levels LTG Duration 02/23/24 Assessment Summary Assessment Pt good feedback response to PROM L shld, STMs to scar and L lateral neck for tension reduction. Improved scapular mobiltiy with PROM and cues for rhomboid and LT activation for scap squeezes home HEP. Good response to neck stretching instruction /c HOs for home set up. Good demonstration pendulum L arm/ scap pnfree standing, showed seated as well good response. Provided CP end tx and pt is using circulating device home for pain control. Physical Therapy Plan Frequency and Duration Frequency of Treatment 2x/Week Plan of Care Start Date 12/23/23 Plan of Care End Date 02/22/24 Therapeutic Interventions Therapeutic Interventions Home Exercise Program,Joint Mobilizations,Manual Therapy, Neuromuscular Re-education, Patient/Caregiver Education, Self-Care/Home Management,Soft Tissue Mobilization, Therapeutic Activities, Therapeutic Exercises Modalities Cold Pack/Ice Massage,Electric Stimulation,Hot Packs Next Visit Focus/Plan Next Note Type Treatment Note Next Visit Plan HEP: scap squeeze, UT & LScap stretching, pendulum, elbow and wrist AROM POC: PROM, shoulder mobility
--- NOTE | 2024-01-11 10:30 | PT.OTN ---
Current Diagnoses Pain in left shoulder (01/11/24) Stiffness of left shoulder, not elsewhere classified (01/11/24) Complete rotator cuff tear or rupture of left shoulder, not specified as traumatic (01/11/24) Aftercare following joint replacement surgery (01/11/24) Physical Therapy Treatment Note PT-OP-A Visit Information Start: 12/23/23 17:46 Freq: Status: Active Protocol: Document 01/11/24 09:47 SP (Rec: 01/11/24 10:41 SP [id number]) Out-Patient Physical Therapy Visit Information Visit Information Visit Type Treatment Note Visit Start Time 09:47 Visit Stop Time 10:30 Visit Number 4 Number of CLIPPING MARKER Visits 2 Evaluation Information Evaluation Date 12/23/23 Precautions Precautions 12/16/23: s/p reverse L shld First 3 weeks: ROM Pendulums only Weeks 0-2: Elbow, wrist, finger ROM, no ER past neutral Weeks 2-6: Shoulder PROM, no lifting, no ER past neutral Weeks 6-12 AROM/PROM as tolerated, no lifting more than 3 pounds Months 3-6: Full ROM, progress ot unrestricted lifting Months 6-12: Full ORM, Full weight bearing, no restrictions PT-OP-B Current Condition Start: 12/23/23 17:46 Freq: Status: Active Protocol: Document 12/23/23 17:00 DCW (Rec: 12/24/23 09:44 DCW [id number]) Current Condition History of Current Condition Onset Date 12/16/23 Current Complaints Right reverse Total shoulder replacement History of Current Condition Pt is a 78 year old female presenting one week s/p right rTSA following failure of conservative treatment of full -thickness supraspinatus and partial-thickness infraspinatus and subscapularis tears. Pt notes her pain is largely gone following surgery. Has already weaned herself off pain pills , and is taking extra-strength tylenol 3x/day. Has been compliant with post-op sling use, only removing for showers . Admits she has done pendulums a few times, but not as frequently as she should be. Pt has been trying really hard to behave myself and follow directions. PT-OP-C Subjective Start: 12/23/23 17:46 Freq: Status: Active Protocol: Document 01/11/24 09:47 SP (Rec: 01/11/24 10:41 SP [id number]) OP-PT Subjective Patient Comments Patient Comments Pt reports doing scap retraction ex in front mirror little uncomfortable noted L UT elevated posture. PT-OP-K Range of Motion Start: 12/23/23 17:46 Freq: Status: Active Protocol: Document 12/23/23 17:00 DCW (Rec: 12/23/23 17:51 DCW [id number]) Shoulder Goniometric Range of Motion Shoulder Left Passive Shoulder ROM WFL No Testing Position Sitting Flexion 62 Abduction 45 External Rotation at 0 degrees Abduction 0 Right Active Shoulder ROM WFL Yes Testing Position Sitting Flexion 170 Abduction 180 PT-OP-M Strength Start: 12/23/23 17:46 Freq: Status: Active Protocol: Document 12/23/23 17:00 DCW (Rec: 12/23/23 17:51 DCW [id number]) Shoulder Strength Shoulder Manual Muscle Testing Left Comments NT due to post-op protocol PT-OP-Q Treatments Start: 12/23/23 17:46 Freq: Status: Active Protocol: Document 01/11/24 09:47 SP (Rec: 01/11/24 10:41 SP [id number]) Therapeutic Exercises Sitting Exercises scap squeeze Sitting Exercise Name standing today after shld rolls Side bilateral Resistance AROM Reps/Minutes 5 Sh x5 Comments cued tall posture, GENTLE light engagement rhomboid- Elbow Flexion Sitting Exercise Name Elbow flexion AROM Side left Equipment Used front mirror standing Reps/Minutes x10 Comments cued L shld down level Standing Exercises wall posture & CS rotation Standing Exercise Name 1. wall posture 2. Add CS rotation Resistance AROM Equipment Used added to HEP /c HO Reps/Minutes 1. 10 Sh x5 2. CS rotation Comments good feedback opening stretch for her neck/back Scapular posterior rolls Standing Exercise Name trialed in PT- added to HEP /c HO Side bilateral Resistance AROM Equipment Used slight elevation/retraction/ depression Reps/Minutes x5 3x/day Comments improved pnfree Pendulums Standing Exercise Name PROM Pendulums- standing Side left Reps/Minutes 10 reps each direction Comments F/B/Lateral/CW/CCW- slow Manual Therapy Treatment Consent Patient gave verbal consent for manual Yes treatment Soft Tissue Mobilization L shld scar mobility Mobilization Type Rolling Comments gentle scar mobility, improved mobility since last tx, still few small scabs L neck Body Location UT, LS Mobilization Type Myofascial Release,Rolling Intensity/Depth Moderate Body Position R Sidelying Comments gentle STMs reduce neck tension Joint Mobilizations L scapulothoracic Grade II Body Position R SL Comments PROM sup/inf/adduction, AROM adduction depression Manual Techniques PROM Type L shld: abd approx 45 deg, FF approx 70 ft, Rotation belly neutral front ER Body Position Supine Reps/Duration muliple reps Comments this feels so good PT-OP-R Modalities Start: 01/04/24 10:36 Freq: Status: Active Protocol: Document 01/04/24 09:48 SP (Rec: 01/04/24 10:41 SP [id number]) Hot Pack/Cold Pack Treatment CP Location L shld Patient Position Hooklying Patient Tolerance Good PT-OP-T Assessment and Plan Start: 12/23/23 17:46 Freq: Status: Active Protocol: Document 01/11/24 09:47 SP (Rec: 01/11/24 10:41 SP [id number]) Physical Therapy Assessment Goals One Impairment Pt does not have an appropriate home exercise program Short Term Goal (STG) Pt to be independent and compliant with an appropriate HEP STG Duration 01/23/24 Three Impairment Pt scores a 90.91% disability on the QuickDASH Impairment . Custodial Goal (LTG) Pt to improve score on the QuickDASH to <50% in order to indicate an increased in ability to perform iALDs independently LTG Duration 02/23/24 Two Impairment Pt unable to perform AROM with right shoulder Impairment . Custodial Goal (LTG) Pt to demonstrate 90? flexion and abduction in right shoulder AROM as progressed within post-op protocol in order to return to prior functional levels LTG Duration 02/23/24 Assessment Summary Assessment Pt reported decreased neck and shoulder tension and discomfort post manual and incorporation of posterior shoulder rolls and wall posture. Improved self posture use mirror with no pain reported during scapular mobility. Physical Therapy Plan Frequency and Duration Frequency of Treatment 2x/Week Plan of Care Start Date 12/23/23 Plan of Care End Date 02/22/24 Therapeutic Interventions Therapeutic Interventions Home Exercise Program,Joint Mobilizations,Manual Therapy, Neuromuscular Re-education, Patient/Caregiver Education, Self-Care/Home Management,Soft Tissue Mobilization, Therapeutic Activities, Therapeutic Exercises Modalities Cold Pack/Ice Massage,Electric Stimulation,Hot Packs Next Visit Focus/Plan Next Note Type Treatment Note Next Visit Plan HEP: scap rolls & squeeze, UT & LScap stretching, pendulum, elbow and wrist AROM, wall posture /c & /s CS rotation. POC: PROM, shoulder mobility
--- NOTE | 2024-01-18 11:29 | PT.OTN ---
Current Diagnoses Pain in left shoulder (01/18/24) Stiffness of left shoulder, not elsewhere classified (01/18/24) Complete rotator cuff tear or rupture of left shoulder, not specified as traumatic (01/18/24) Aftercare following joint replacement surgery (01/18/24) Physical Therapy Treatment Note PT-OP-A Visit Information Start: 12/23/23 17:46 Freq: Status: Active Protocol: Document 01/18/24 10:45 DCW (Rec: 01/18/24 11:29 DCW [id number]) Out-Patient Physical Therapy Visit Information Visit Information Visit Type Treatment Note Visit Start Time 10:45 Visit Stop Time 11:30 Visit Number 5 Number of OCC THERAPIST Visits 0 Evaluation Information Evaluation Date 12/23/23 Precautions Precautions 12/16/23: s/p reverse L shld First 3 weeks: ROM Pendulums only Weeks 0-2: Elbow, wrist, finger ROM, no ER past neutral Weeks 2-6: Shoulder PROM, no lifting, no ER past neutral Weeks 6-12 AROM/PROM as tolerated, no lifting more than 3 pounds Months 3-6: Full ROM, progress to unrestricted lifting Months 6-12: Full ROM, Full weight bearing, no restrictions PT-OP-B Current Condition Start: 12/23/23 17:46 Freq: Status: Active Protocol: Document 12/23/23 17:00 DCW (Rec: 12/24/23 09:44 DCW [id number]) Current Condition History of Current Condition Onset Date 12/16/23 Current Complaints Right reverse Total shoulder replacement History of Current Condition Pt is a 78 year old female presenting one week s/p right rTSA following failure of conservative treatment of full -thickness supraspinatus and partial-thickness infraspinatus and subscapularis tears. Pt notes her pain is largely gone following surgery. Has already weaned herself off pain pills , and is taking extra-strength tylenol 3x/day. Has been compliant with post-op sling use, only removing for showers . Admits she has done pendulums a few times, but not as frequently as she should be. Pt has been trying really hard to behave myself and follow directions. PT-OP-C Subjective Start: 12/23/23 17:46 Freq: Status: Active Protocol: Document 01/18/24 10:45 DCW (Rec: 01/18/24 11:29 DCW [id number]) OP-PT Subjective Patient Comments Patient Comments No pain, but the list of things I want to do with this arm is getting longer and longer. It's so boring. PT-OP-K Range of Motion Start: 12/23/23 17:46 Freq: Status: Active Protocol: Document 12/23/23 17:00 DCW (Rec: 12/23/23 17:51 DCW [id number]) Shoulder Goniometric Range of Motion Shoulder Left Passive Shoulder ROM WFL No Testing Position Sitting Flexion 62 Abduction 45 External Rotation at 0 degrees Abduction 0 Right Active Shoulder ROM WFL Yes Testing Position Sitting Flexion 170 Abduction 180 PT-OP-M Strength Start: 12/23/23 17:46 Freq: Status: Active Protocol: Document 12/23/23 17:00 DCW (Rec: 12/23/23 17:51 DCW [id number]) Shoulder Strength Shoulder Manual Muscle Testing Left Comments NT due to post-op protocol PT-OP-Q Treatments Start: 12/23/23 17:46 Freq: Status: Active Protocol: Document 01/18/24 10:45 DCW (Rec: 01/18/24 11:29 DCW [id number]) Therapeutic Exercises Sitting Exercises scap squeeze Sitting Exercise Name Scapular Retraction Side bilateral Resistance AROM Reps/Minutes 5 Sh x5 Standing Exercises Scapular posterior rolls Standing Exercise Name Scapular rolls Side bilateral Resistance AROM Equipment Used slight elevation/retraction/ depression Manual Therapy Treatment Consent Patient gave verbal consent for manual Yes treatment Soft Tissue Mobilization L shld scar mobility Mobilization Type Rolling Comments gentle scar mobility, improved mobility since last tx, still few small scabs L neck Body Location UT, LS Mobilization Type Myofascial Release,Rolling Intensity/Depth Moderate Body Position R Sidelying Comments gentle STMs reduce neck tension Joint Mobilizations L scapulothoracic Grade II Body Position R SL Comments PROM sup/inf/adduction, AROM adduction depression Manual Techniques PROM Type L shld: abd approx 50?, FF approx 80?, Rotation belly neutral front ER Body Position Semirecumbent Reps/Duration muliple reps Comments this feels so good PT-OP-R Modalities Start: 01/04/24 10:36 Freq: Status: Active Protocol: Document 01/04/24 09:48 SP (Rec: 01/04/24 10:41 SP [id number]) Hot Pack/Cold Pack Treatment CP Location L shld Patient Position Hooklying Patient Tolerance Good PT-OP-T Assessment and Plan Start: 12/23/23 17:46 Freq: Status: Active Protocol: Document 01/18/24 10:45 DCW (Rec: 01/18/24 11:29 DCW [id number]) Physical Therapy Assessment Impairments Impairments Activity Tolerance,Functional Activities,Functional Mobility ,Pain,ROM,Soft Tissue Mobility ,Strength,Tone Goals One Impairment Pt does not have an appropriate home exercise program Short Term Goal (STG) Pt to be independent and compliant with an appropriate HEP STG Duration 01/23/24 Three Impairment Pt scores a 90.91% disability on the QuickDASH Impairment . Bracelet Maker Novelty Goal (LTG) Pt to improve score on the QuickDASH to <50% in order to indicate an increased in ability to perform iALDs independently LTG Duration 02/23/24 Two Impairment Pt unable to perform AROM with right shoulder Impairment . Bracelet Maker Novelty Goal (LTG) Pt to demonstrate 90? flexion and abduction in right shoulder AROM as progressed within post-op protocol in order to return to prior functional levels LTG Duration 02/23/24 Assessment Summary Assessment Pt continues to progress well within post-op protocol. Next visit will be at 5 week shannon, will progress to AROM at 6 weeks. Physical Therapy Plan Frequency and Duration Frequency of Treatment 2x/Week Plan of Care Start Date 12/23/23 Plan of Care End Date 02/22/24 Therapeutic Interventions Therapeutic Interventions Home Exercise Program,Joint Mobilizations,Manual Therapy, Neuromuscular Re-education, Patient/Caregiver Education, Self-Care/Home Management,Soft Tissue Mobilization, Therapeutic Activities, Therapeutic Exercises Modalities Cold Pack/Ice Massage,Electric Stimulation,Hot Packs Next Visit Focus/Plan Next Note Type Treatment Note Next Visit Plan HEP: scap rolls & squeeze, UT & LScap stretching, pendulum, elbow and wrist AROM, wall posture /c & /s CS rotation. POC: PROM, shoulder mobility
--- NOTE | 2024-01-20 11:25 | PT.OTN ---
Current Diagnoses Pain in left shoulder (01/20/24) Stiffness of left shoulder, not elsewhere classified (01/20/24) Complete rotator cuff tear or rupture of left shoulder, not specified as traumatic (01/20/24) Aftercare following joint replacement surgery (01/20/24) Physical Therapy Treatment Note PT-OP-A Visit Information Start: 12/23/23 17:46 Freq: Status: Active Protocol: Document 01/20/24 10:45 DCW (Rec: 01/20/24 11:25 DCW [id number]) Out-Patient Physical Therapy Visit Information Visit Information Visit Type Treatment Note Visit Start Time 10:45 Visit Stop Time 11:30 Visit Number 6 Number of COPY LATHE TENDER Visits 0 Evaluation Information Evaluation Date 12/23/23 Precautions Precautions 12/16/23: s/p reverse L shld First 3 weeks: ROM Pendulums only Weeks 0-2: Elbow, wrist, finger ROM, no ER past neutral Weeks 2-6: Shoulder PROM, no lifting, no ER past neutral Weeks 6-12 AROM/PROM as tolerated, no lifting more than 3 pounds Months 3-6: Full ROM, progress to unrestricted lifting Months 6-12: Full ROM, Full weight bearing, no restrictions PT-OP-B Current Condition Start: 12/23/23 17:46 Freq: Status: Active Protocol: Document 12/23/23 17:00 DCW (Rec: 12/24/23 09:44 DCW [id number]) Current Condition History of Current Condition Onset Date 12/16/23 Current Complaints Right reverse Total shoulder replacement History of Current Condition Pt is a 78 year old female presenting one week s/p right rTSA following failure of conservative treatment of full -thickness supraspinatus and partial-thickness infraspinatus and subscapularis tears. Pt notes her pain is largely gone following surgery. Has already weaned herself off pain pills , and is taking extra-strength tylenol 3x/day. Has been compliant with post-op sling use, only removing for showers . Admits she has done pendulums a few times, but not as frequently as she should be. Pt has been trying really hard to behave myself and follow directions. PT-OP-C Subjective Start: 12/23/23 17:46 Freq: Status: Active Protocol: Document 01/20/24 10:45 DCW (Rec: 01/20/24 11:25 DCW [id number]) OP-PT Subjective Patient Comments Patient Comments It actually felt good after last time. I was surprised, I was expecting more pain. PT-OP-K Range of Motion Start: 12/23/23 17:46 Freq: Status: Active Protocol: Document 12/23/23 17:00 DCW (Rec: 12/23/23 17:51 DCW [id number]) Shoulder Goniometric Range of Motion Shoulder Left Passive Shoulder ROM WFL No Testing Position Sitting Flexion 62 Abduction 45 External Rotation at 0 degrees Abduction 0 Right Active Shoulder ROM WFL Yes Testing Position Sitting Flexion 170 Abduction 180 PT-OP-M Strength Start: 12/23/23 17:46 Freq: Status: Active Protocol: Document 12/23/23 17:00 DCW (Rec: 12/23/23 17:51 DCW [id number]) Shoulder Strength Shoulder Manual Muscle Testing Left Comments NT due to post-op protocol PT-OP-Q Treatments Start: 12/23/23 17:46 Freq: Status: Active Protocol: Document 01/20/24 10:45 DCW (Rec: 01/20/24 11:25 DCW [id number]) Therapeutic Exercises Sitting Exercises Pulleys Sitting Exercise Name PROM - Pulleys in flexion Side bilateral Standing Exercises Scapular posterior rolls Standing Exercise Name Scapular rolls Side bilateral Resistance AROM Equipment Used slight elevation/retraction/ depression Manual Therapy Treatment Consent Patient gave verbal consent for manual Yes treatment Soft Tissue Mobilization L neck Body Location UT, LS Mobilization Type Myofascial Release,Rolling Intensity/Depth Moderate Body Position Semirecumbent Comments gentle STMs reduce neck tension Joint Mobilizations L scapulothoracic Grade II Body Position Semirecumb Comments PROM sup/inf/adduction, AROM adduction depression Manual Techniques PROM Type L shld: abd approx 58?, FF approx 87?, Rotation belly neutral front ER Body Position Semirecumbent Reps/Duration muliple reps Comments this feels so good PT-OP-R Modalities Start: 01/04/24 10:36 Freq: Status: Active Protocol: Document 01/04/24 09:48 SP (Rec: 01/04/24 10:41 SP [id number]) Hot Pack/Cold Pack Treatment CP Location L shld Patient Position Hooklying Patient Tolerance Good PT-OP-T Assessment and Plan Start: 12/23/23 17:46 Freq: Status: Active Protocol: Document 01/20/24 10:45 DCW (Rec: 01/20/24 11:25 DCW [id number]) Physical Therapy Assessment Impairments Impairments Activity Tolerance,Functional Activities,Functional Mobility ,Pain,ROM,Soft Tissue Mobility ,Strength,Tone Goals One Impairment Pt does not have an appropriate home exercise program Short Term Goal (STG) Pt to be independent and compliant with an appropriate HEP STG Duration 01/23/24 Three Impairment Pt scores a 90.91% disability on the QuickDASH Impairment . Custodial Goal (LTG) Pt to improve score on the QuickDASH to <50% in order to indicate an increased in ability to perform iALDs independently LTG Duration 02/23/24 Two Impairment Pt unable to perform AROM with right shoulder Impairment . Process Manager Goal (LTG) Pt to demonstrate 90? flexion and abduction in right shoulder AROM as progressed within post-op protocol in order to return to prior functional levels LTG Duration 02/23/24 Assessment Summary Assessment Started PROM Pulleys today, pt tolerated well. Continue to focus on PROM and STM until 6 week shannon okays for AROM. Physical Therapy Plan Frequency and Duration Frequency of Treatment 2x/Week Plan of Care Start Date 12/23/23 Plan of Care End Date 02/22/24 Therapeutic Interventions Therapeutic Interventions Home Exercise Program,Joint Mobilizations,Manual Therapy, Neuromuscular Re-education, Patient/Caregiver Education, Self-Care/Home Management,Soft Tissue Mobilization, Therapeutic Activities, Therapeutic Exercises Modalities Cold Pack/Ice Massage,Electric Stimulation,Hot Packs Next Visit Focus/Plan Next Note Type Treatment Note Next Visit Plan HEP: scap rolls & squeeze, UT & LScap stretching, pendulum, elbow and wrist AROM, wall posture /c & /s CS rotation. POC: PROM, shoulder mobility
--- NOTE | 2024-01-27 10:31 | PT.OTN ---
Current Diagnoses Pain in left shoulder (01/27/24) Stiffness of left shoulder, not elsewhere classified (01/27/24) Complete rotator cuff tear or rupture of left shoulder, not specified as traumatic (01/27/24) Aftercare following joint replacement surgery (01/27/24) Physical Therapy Treatment Note PT-OP-A Visit Information Start: 12/23/23 17:46 Freq: Status: Active Protocol: Document 01/27/24 09:45 DCW (Rec: 01/27/24 10:30 DCW [id number]) Out-Patient Physical Therapy Visit Information Visit Information Visit Type Treatment Note Visit Start Time 10:45 Visit Stop Time 11:30 Visit Number 7 Number of TECHNICAL ADMINISTRATOR Visits 0 Evaluation Information Evaluation Date 12/23/23 Precautions Precautions 12/16/23: s/p reverse L shld First 3 weeks: ROM Pendulums only Weeks 0-2: Elbow, wrist, finger ROM, no ER past neutral Weeks 2-6: Shoulder PROM, no lifting, no ER past neutral Weeks 6-12 AROM/PROM as tolerated, no lifting more than 3 pounds Months 3-6: Full ROM, progress to unrestricted lifting Months 6-12: Full ROM, Full weight bearing, no restrictions PT-OP-B Current Condition Start: 12/23/23 17:46 Freq: Status: Active Protocol: Document 12/23/23 17:00 DCW (Rec: 12/24/23 09:44 DCW [id number]) Current Condition History of Current Condition Onset Date 12/16/23 Current Complaints Right reverse Total shoulder replacement History of Current Condition Pt is a 78 year old female presenting one week s/p right rTSA following failure of conservative treatment of full -thickness supraspinatus and partial-thickness infraspinatus and subscapularis tears. Pt notes her pain is largely gone following surgery. Has already weaned herself off pain pills , and is taking extra-strength tylenol 3x/day. Has been compliant with post-op sling use, only removing for showers . Admits she has done pendulums a few times, but not as frequently as she should be. Pt has been trying really hard to behave myself and follow directions. PT-OP-C Subjective Start: 12/23/23 17:46 Freq: Status: Active Protocol: Document 01/27/24 09:45 DCW (Rec: 01/27/24 10:30 DCW [id number]) OP-PT Subjective Patient Comments Patient Comments Pt arrives without her sling today. Follow-up with surgeon was yesterday, pt cleared to do anything, but no lifting over 5 pounds. PT-OP-K Range of Motion Start: 12/23/23 17:46 Freq: Status: Active Protocol: Document 12/23/23 17:00 DCW (Rec: 12/23/23 17:51 DCW [id number]) Shoulder Goniometric Range of Motion Shoulder Left Passive Shoulder ROM WFL No Testing Position Sitting Flexion 62 Abduction 45 External Rotation at 0 degrees Abduction 0 Right Active Shoulder ROM WFL Yes Testing Position Sitting Flexion 170 Abduction 180 PT-OP-M Strength Start: 12/23/23 17:46 Freq: Status: Active Protocol: Document 12/23/23 17:00 DCW (Rec: 12/23/23 17:51 DCW [id number]) Shoulder Strength Shoulder Manual Muscle Testing Left Comments NT due to post-op protocol PT-OP-Q Treatments Start: 12/23/23 17:46 Freq: Status: Active Protocol: Document 01/27/24 09:45 DCW (Rec: 01/27/24 10:30 DCW [id number]) Cardio Equipment Upper Body Ergometer (UBE) Duration (Minutes) 4 RPM 30 Seat Position 8 Height 2 Therapeutic Exercises Supine Exercises Flexion Supine Exercise Name AAROM Flexion /c PVC Side bilateral Sidelying Exercises Abduction Sidelying Exercise Name Shoulder Abduction Side left External Rotation Sidelying Exercise Name AROM - Shoulder ER Side left Sitting Exercises Pulleys Sitting Exercise Name PROM - Pulleys in flexion, abduction Side bilateral Standing Exercises Abduction Standing Exercise Name AROM Abduction Side left Comments 26? Flexion Standing Exercise Name AROM Flexion Side left Comments 45? Wall slides Standing Exercise Name Wall slides - Flexion/ Abduction Side left PT-OP-R Modalities Start: 01/04/24 10:36 Freq: Status: Active Protocol: Document 01/04/24 09:48 SP (Rec: 01/04/24 10:41 SP [id number]) Hot Pack/Cold Pack Treatment CP Location L shld Patient Position Hooklying Patient Tolerance Good PT-OP-T Assessment and Plan Start: 12/23/23 17:46 Freq: Status: Active Protocol: Document 01/27/24 09:45 DCW (Rec: 01/27/24 10:30 DCW [id number]) Physical Therapy Assessment Impairments Impairments Activity Tolerance,Functional Activities,Functional Mobility ,Pain,ROM,Soft Tissue Mobility ,Strength,Tone Goals One Impairment Pt does not have an appropriate home exercise program Short Term Goal (STG) Pt to be independent and compliant with an appropriate HEP STG Duration 01/23/24 Three Impairment Pt scores a 90.91% disability on the QuickDASH Residential Goal (LTG) Pt to improve score on the QuickDASH to <50% in order to indicate an increased in ability to perform iALDs independently LTG Duration 02/23/24 Two Impairment Pt unable to perform AROM with right shoulder Choir Singer Goal (LTG) Pt to demonstrate 90? flexion and abduction in right shoulder AROM as progressed within post-op protocol in order to return to prior functional levels LTG Duration 02/23/24 Assessment Summary Assessment Pt cleared for AROM. Focused today on increasing AROM, pt obviously demonstrates significant weakness through movement. Physical Therapy Plan Frequency and Duration Frequency of Treatment 2x/Week Plan of Care Start Date 12/23/23 Plan of Care End Date 02/22/24 Therapeutic Interventions Therapeutic Interventions Home Exercise Program,Joint Mobilizations,Manual Therapy, Neuromuscular Re-education, Patient/Caregiver Education, Self-Care/Home Management,Soft Tissue Mobilization, Therapeutic Activities, Therapeutic Exercises Modalities Cold Pack/Ice Massage,Electric Stimulation,Hot Packs Next Visit Focus/Plan Next Note Type Treatment Note Next Visit Plan HEP: Active flexion, abduction , and ER, wall slides POC: AROM, shoulder mobility
--- NOTE | 2024-02-07 12:15 | PT.OTN ---
Current Diagnoses Pain in left shoulder (02/07/24) Stiffness of left shoulder, not elsewhere classified (02/07/24) Complete rotator cuff tear or rupture of left shoulder, not specified as traumatic (02/07/24) Aftercare following joint replacement surgery (02/07/24) Physical Therapy Treatment Note PT-OP-A Visit Information Start: 12/23/23 17:46 Freq: Status: Active Protocol: Document 02/07/24 11:30 DCW (Rec: 02/07/24 12:15 DCW [id number]) Out-Patient Physical Therapy Visit Information Visit Information Visit Type Treatment Note Visit Start Time 11:30 Visit Stop Time 12:15 Visit Number 8 Number of SHEET MILL SUPERVISOR Visits 0 Evaluation Information Evaluation Date 12/23/23 Precautions Precautions 12/16/23: s/p reverse L shld First 3 weeks: ROM Pendulums only Weeks 0-2: Elbow, wrist, finger ROM, no ER past neutral Weeks 2-6: Shoulder PROM, no lifting, no ER past neutral Weeks 6-12 AROM/PROM as tolerated, no lifting more than 3 pounds Months 3-6: Full ROM, progress to unrestricted lifting Months 6-12: Full ROM, Full weight bearing, no restrictions PT-OP-B Current Condition Start: 12/23/23 17:46 Freq: Status: Active Protocol: Document 12/23/23 17:00 DCW (Rec: 12/24/23 09:44 DCW [id number]) Current Condition History of Current Condition Onset Date 12/16/23 Current Complaints Right reverse Total shoulder replacement History of Current Condition Pt is a 78 year old female presenting one week s/p right rTSA following failure of conservative treatment of full -thickness supraspinatus and partial-thickness infraspinatus and subscapularis tears. Pt notes her pain is largely gone following surgery. Has already weaned herself off pain pills , and is taking extra-strength tylenol 3x/day. Has been compliant with post-op sling use, only removing for showers . Admits she has done pendulums a few times, but not as frequently as she should be. Pt has been trying really hard to behave myself and follow directions. PT-OP-C Subjective Start: 12/23/23 17:46 Freq: Status: Active Protocol: Document 02/07/24 11:30 DCW (Rec: 02/07/24 12:15 DCW [id number]) OP-PT Subjective Patient Comments Patient Comments Either I'm not doing the exercises right, or it's not coming along. PT-OP-K Range of Motion Start: 12/23/23 17:46 Freq: Status: Active Protocol: Document 12/23/23 17:00 DCW (Rec: 12/23/23 17:51 DCW [id number]) Shoulder Goniometric Range of Motion Shoulder Left Passive Shoulder ROM WFL No Testing Position Sitting Flexion 62 Abduction 45 External Rotation at 0 degrees Abduction 0 Right Active Shoulder ROM WFL Yes Testing Position Sitting Flexion 170 Abduction 180 PT-OP-M Strength Start: 12/23/23 17:46 Freq: Status: Active Protocol: Document 12/23/23 17:00 DCW (Rec: 12/23/23 17:51 DCW [id number]) Shoulder Strength Shoulder Manual Muscle Testing Left Comments NT due to post-op protocol PT-OP-Q Treatments Start: 12/23/23 17:46 Freq: Status: Active Protocol: Document 02/07/24 11:30 DCW (Rec: 02/07/24 12:15 DCW [id number]) Cardio Equipment Upper Body Ergometer (UBE) Duration (Minutes) 4 RPM 30 Seat Position 8 Height 2 Other Fwd/Bkwd Therapeutic Exercises Supine Exercises Flexion Supine Exercise Name AAROM Flexion /c PVC Side bilateral Sitting Exercises Pulleys Sitting Exercise Name PROM - Pulleys in flexion, abduction Side bilateral Standing Exercises Abduction Standing Exercise Name AROM Abduction Side left Comments 41? Flexion Standing Exercise Name AROM Flexion Side left Comments 43? Wall slides Standing Exercise Name Wall slides - Flexion/ Abduction Side left Manual Therapy Treatment Consent Patient gave verbal consent for manual Yes treatment Soft Tissue Mobilization Upper Arm Body Location L Biceps, Deltoid, Triceps Mobilization Type Sustained Pressure,Trigger Point Release Intensity/Depth Moderate Body Position Supine L neck Body Location UT, LS Mobilization Type Myofascial Release,Rolling Intensity/Depth Moderate Body Position Semirecumbent Comments gentle STMs reduce neck tension Joint Mobilizations L scapulothoracic Grade II Body Position Semirecumb Comments PROM sup/inf/adduction, AROM adduction depression PT-OP-R Modalities Start: 01/04/24 10:36 Freq: Status: Active Protocol: Document 01/04/24 09:48 SP (Rec: 01/04/24 10:41 SP [id number]) Hot Pack/Cold Pack Treatment CP Location L shld Patient Position Hooklying Patient Tolerance Good PT-OP-T Assessment and Plan Start: 12/23/23 17:46 Freq: Status: Active Protocol: Document 02/07/24 11:30 DCW (Rec: 02/07/24 12:15 DCW [id number]) Physical Therapy Assessment Impairments Impairments Activity Tolerance,Functional Activities,Functional Mobility ,Pain,ROM,Soft Tissue Mobility ,Strength,Tone Goals One Impairment Pt does not have an appropriate home exercise program Short Term Goal (STG) Pt to be independent and compliant with an appropriate HEP STG Duration 01/23/24 Three Impairment Pt scores a 90.91% disability on the QuickDASH Practice Managers Goal (LTG) Pt to improve score on the QuickDASH to <50% in order to indicate an increased in ability to perform iALDs independently LTG Duration 02/23/24 Two Impairment Pt unable to perform AROM with right shoulder Skilled Nursing Goal (LTG) Pt to demonstrate 90? flexion and abduction in right shoulder AROM as progressed within post-op protocol in order to return to prior functional levels LTG Duration 02/23/24 Assessment Summary Assessment Pt continues to be more limited with AROM. Reviewed some HEP, pt performing regularly. Largely exhibiting limitations secondary to weakness following rTSA, continue to focus on functional mobility, ROM, strength, and activity tolerance. Physical Therapy Plan Frequency and Duration Frequency of Treatment 2x/Week Plan of Care Start Date 12/23/23 Plan of Care End Date 02/22/24 Therapeutic Interventions Therapeutic Interventions Home Exercise Program,Joint Mobilizations,Manual Therapy, Neuromuscular Re-education, Patient/Caregiver Education, Self-Care/Home Management,Soft Tissue Mobilization, Therapeutic Activities, Therapeutic Exercises Modalities Cold Pack/Ice Massage,Electric Stimulation,Hot Packs Next Visit Focus/Plan Next Note Type Treatment Note Next Visit Plan HEP: Active flexion, abduction , and ER, wall slides POC: AROM, shoulder mobility
--- NOTE | 2024-02-11 14:31 | PT.OTN ---
Current Diagnoses Pain in left shoulder (02/11/24) Stiffness of left shoulder, not elsewhere classified (02/11/24) Complete rotator cuff tear or rupture of left shoulder, not specified as traumatic (02/11/24) Aftercare following joint replacement surgery (02/11/24) Physical Therapy Treatment Note PT-OP-A Visit Information Start: 12/23/23 17:46 Freq: Status: Active Protocol: Document 02/11/24 13:49 SP (Rec: 02/11/24 14:35 SP [id number]) Out-Patient Physical Therapy Visit Information Visit Information Visit Type Treatment Note Visit Start Time 13:49 Visit Stop Time 14:31 Visit Number 9 (11/15 [email or web address]) Number of DIRECTOR COMPENSATION Visits 1 Evaluation Information Evaluation Date 12/23/23 Precautions Precautions 12/16/23: s/p reverse L shld First 3 weeks: ROM Pendulums only Weeks 0-2: Elbow, wrist, finger ROM, no ER past neutral Weeks 2-6: Shoulder PROM, no lifting, no ER past neutral Weeks 6-12 AROM/PROM as tolerated, no lifting more than 3 pounds Months 3-6: Full ROM, progress to unrestricted lifting Months 6-12: Full ROM, Full weight bearing, no restrictions PT-OP-B Current Condition Start: 12/23/23 17:46 Freq: Status: Active Protocol: Document 12/23/23 17:00 DCW (Rec: 12/24/23 09:44 DCW [id number]) Current Condition History of Current Condition Onset Date 12/16/23 Current Complaints Right reverse Total shoulder replacement History of Current Condition Pt is a 78 year old female presenting one week s/p right rTSA following failure of conservative treatment of full -thickness supraspinatus and partial-thickness infraspinatus and subscapularis tears. Pt notes her pain is largely gone following surgery. Has already weaned herself off pain pills , and is taking extra-strength tylenol 3x/day. Has been compliant with post-op sling use, only removing for showers . Admits she has done pendulums a few times, but not as frequently as she should be. Pt has been trying really hard to behave myself and follow directions. PT-OP-C Subjective Start: 12/23/23 17:46 Freq: Status: Active Protocol: Document 02/11/24 13:49 SP (Rec: 02/11/24 14:35 SP [id number]) OP-PT Subjective Patient Comments Patient Comments Pt is 8 wks s/p reverse L shld . She reports was pretty sore after last tx manual massage but next day able to put pole up over head. PT-OP-K Range of Motion Start: 12/23/23 17:46 Freq: Status: Active Protocol: Document 12/23/23 17:00 DCW (Rec: 12/23/23 17:51 DCW [id number]) Shoulder Goniometric Range of Motion Shoulder Left Passive Shoulder ROM WFL No Testing Position Sitting Flexion 62 Abduction 45 External Rotation at 0 degrees Abduction 0 Right Active Shoulder ROM WFL Yes Testing Position Sitting Flexion 170 Abduction 180 PT-OP-M Strength Start: 12/23/23 17:46 Freq: Status: Active Protocol: Document 12/23/23 17:00 DCW (Rec: 12/23/23 17:51 DCW [id number]) Shoulder Strength Shoulder Manual Muscle Testing Left Comments NT due to post-op protocol PT-OP-Q Treatments Start: 12/23/23 17:46 Freq: Status: Active Protocol: Document 02/11/24 13:49 SP (Rec: 02/11/24 14:35 SP [id number]) Cardio Equipment Upper Body Ergometer (UBE) Duration (Minutes) 4 RPM 70 Seat Position 7 Height 2 Other Fwd/Bkwd every 30 sec Therapeutic Exercises Sidelying Exercises Abduction Sidelying Exercise Name Shoulder Abduction- 75 deg Side left Resistance R SL- AROM Reps/Minutes x3 reps Comments quivering end feel, tactile cue reduction, jaw & UT recruitment External Rotation Sidelying Exercise Name Shoulder ER Side left Resistance AROM Reps/Minutes x10 reps Sitting Exercises tball rolls: FF Side bilateral Resistance AAROM Equipment Used 65cm tball Reps/Minutes 10 reps Comments reports good gentle stretch Pulleys Sitting Exercise Name PROM - Pulleys in flexion, abduction Side bilateral Equipment Used mirror front for self feedback postural alignment Reps/Minutes 10 reps FF 5 reps ABD but reports discomfort anterior L shld into range Comments cued elbow extension scap inf glide range improved slight less UT recruit. Standing Exercises tball rolls: FF, scaption Side left Equipment Used 65 cm tball on table Reps/Minutes 5 reps each Comments improved less discomfort and UT recruitment- ed not over pressure Abduction Standing Exercise Name Abduction Side left Resistance AROM Reps/Minutes 3 reps before compensation and discomfort in neck and bicep Flexion Standing Exercise Name AROM Flexion Side left Reps/Minutes 3 reps before compenstation and discomfort in neck and bicep Wall slides Standing Exercise Name Wall slides - Flexion/ Abduction Side left Equipment Used towel Reps/Minutes 2 reps before compenstation and discomfort in neck and bicep Comments to much UT over recruitment Scapular posterior rolls Standing Exercise Name Scapular rolls Side bilateral Resistance AROM Equipment Used slight elevation/retraction/ depression Reps/Minutes 10 Comments good form Manual Therapy Treatment Consent Patient gave verbal consent for manual Yes treatment Soft Tissue Mobilization Upper Arm Body Location L Biceps, Deltoid, pec, lat, SA Mobilization Type Rolling Intensity/Depth Moderate Body Position Supine Comments sit, R SL L neck Body Location UT, LS Mobilization Type Myofascial Release,Rolling Intensity/Depth Moderate Body Position Sitting Comments gentle STMs reduce neck tension Joint Mobilizations L scapulothoracic Grade II Body Position R LS Comments PROM sup/inf/adduction, AAROM abduction PT-OP-R Modalities Start: 01/04/24 10:36 Freq: Status: Active Protocol: Document 01/04/24 09:48 SP (Rec: 01/04/24 10:41 SP [id number]) Hot Pack/Cold Pack Treatment CP Location L shld Patient Position Hooklying Patient Tolerance Good PT-OP-T Assessment and Plan Start: 12/23/23 17:46 Freq: Status: Active Protocol: Document 02/11/24 13:49 SP (Rec: 02/11/24 14:35 SP [id number]) Physical Therapy Assessment Goals One Impairment Pt does not have an appropriate home exercise program Short Term Goal (STG) Pt to be independent and compliant with an appropriate HEP STG Duration 01/23/24 Three Impairment Pt scores a 90.91% disability on the QuickDASH Impairment . Correction Goal (LTG) Pt to improve score on the QuickDASH to <50% in order to indicate an increased in ability to perform iALDs independently LTG Duration 02/23/24 Two Impairment Pt unable to perform AROM with right shoulder Impairment . Correction Goal (LTG) Pt to demonstrate 90? flexion and abduction in right shoulder AROM as progressed within post-op protocol in order to return to prior functional levels LTG Duration 02/23/24 Assessment Summary Assessment Pt demonstrates UT compensations, jaw tension and report of discomfort into L bicep and anterior L shld during pulleys and standing wall slides. Modified seated ( tball on floor) and standing ( tball on table) FF and scaption tball rolling with good feedback more gentle AAROM in R shoulder with decrease tightness reactions in neck and front of her shoulder. Pt tolerated progression AROM R shld abd approx 75 deg and ER with cuing for scapular glide, not allow shld elevation, but scapular neutral down mobility . Pt reports no pain end tx, more tired. Physical Therapy Plan Frequency and Duration Frequency of Treatment 2x/Week Plan of Care Start Date 12/23/23 Plan of Care End Date 02/22/24 Therapeutic Interventions Therapeutic Interventions Home Exercise Program,Joint Mobilizations,Manual Therapy, Neuromuscular Re-education, Patient/Caregiver Education, Self-Care/Home Management,Soft Tissue Mobilization, Therapeutic Activities, Therapeutic Exercises Modalities Cold Pack/Ice Massage,Electric Stimulation,Hot Packs Next Visit Focus/Plan Next Note Type Progress Note Next Visit Plan PN next tx /c PT 02/14. HEP: Active flexion, abduction , and ER, wall slides, tball rolls FF & scaption, side ER, shoulder rolls POC: AROM, shoulder mobility
--- NOTE | 2024-02-15 11:30 | PT.OTN ---
Current Diagnoses Pain in left shoulder (02/15/24) Stiffness of left shoulder, not elsewhere classified (02/15/24) Complete rotator cuff tear or rupture of left shoulder, not specified as traumatic (02/15/24) Aftercare following joint replacement surgery (02/15/24) Physical Therapy Treatment Note PT-OP-A Visit Information Start: 12/23/23 17:46 Freq: Status: Active Protocol: Document 02/15/24 10:49 DCW (Rec: 02/15/24 11:30 DCW [id number]) Out-Patient Physical Therapy Visit Information Visit Information Visit Type Progress Note Visit Start Time 10:49 Visit Stop Time 11:30 Visit Number 10 Number of EVP STRATEGY Visits 0 Evaluation Information Evaluation Date 12/23/23 Precautions Precautions 12/16/23: s/p reverse L shld First 3 weeks: ROM Pendulums only Weeks 0-2: Elbow, wrist, finger ROM, no ER past neutral Weeks 2-6: Shoulder PROM, no lifting, no ER past neutral Weeks 6-12 AROM/PROM as tolerated, no lifting more than 3 pounds Months 3-6: Full ROM, progress to unrestricted lifting Months 6-12: Full ROM, Full weight bearing, no restrictions PT-OP-B Current Condition Start: 12/23/23 17:46 Freq: Status: Active Protocol: Document 12/23/23 17:00 DCW (Rec: 12/24/23 09:44 DCW [id number]) Current Condition History of Current Condition Onset Date 12/16/23 Current Complaints Right reverse Total shoulder replacement History of Current Condition Pt is a 78 year old female presenting one week s/p right rTSA following failure of conservative treatment of full -thickness supraspinatus and partial-thickness infraspinatus and subscapularis tears. Pt notes her pain is largely gone following surgery. Has already weaned herself off pain pills , and is taking extra-strength tylenol 3x/day. Has been compliant with post-op sling use, only removing for showers . Admits she has done pendulums a few times, but not as frequently as she should be. Pt has been trying really hard to behave myself and follow directions. PT-OP-C Subjective Start: 12/23/23 17:46 Freq: Status: Active Protocol: Document 02/15/24 10:49 DCW (Rec: 02/15/24 11:30 DCW [id number]) OP-PT Subjective Patient Comments Patient Comments Pt notes she struggles getting her arm straight, like reaching for her kitchen sink fazalt. PT-OP-K Range of Motion Start: 12/23/23 17:46 Freq: Status: Active Protocol: Document 02/15/24 10:49 DCW (Rec: 02/15/24 11:03 DCW [id number]) Shoulder Goniometric Range of Motion Shoulder Left Active Testing Position Standing Flexion 56 Abduction 51 External Rotation at 0 degrees Abduction 33 Left Passive Shoulder ROM WFL No Testing Position Supine Flexion 111 Abduction 78 External Rotation at 0 degrees Abduction 24 Right Active Shoulder ROM WFL Yes Testing Position Sitting Flexion 170 Abduction 180 PT-OP-M Strength Start: 12/23/23 17:46 Freq: Status: Active Protocol: Document 02/15/24 10:49 DCW (Rec: 02/15/24 11:03 DCW [id number]) Shoulder Strength Shoulder Manual Muscle Testing Left Flexion 2- Poor- Abduction (C5) 2- Poor- External Rotation 2 Poor PT-OP-Q Treatments Start: 12/23/23 17:46 Freq: Status: Active Protocol: Document 02/15/24 10:49 DCW (Rec: 02/15/24 11:30 DCW [id number]) Therapeutic Exercises Supine Exercises Biceps stretch Supine Exercise Name Biceps stretch into elbow extension Side left Sitting Exercises Pulleys Sitting Exercise Name PROM - Pulleys in flexion, abduction Side bilateral Equipment Used mirror front for self feedback postural alignment Reps/Minutes 10 reps FF 5 reps ABD but reports discomfort anterior L shld into range Comments cued elbow extension scap inf glide range improved slight less UT recruit. Manual Therapy Treatment Consent Patient gave verbal consent for manual Yes treatment Soft Tissue Mobilization Upper Arm Body Location L Biceps, Deltoid, pec, lat Mobilization Type Rolling Intensity/Depth Moderate Body Position Supine Comments sit, R SL L neck Body Location UT, LS Mobilization Type Myofascial Release,Rolling Intensity/Depth Moderate Body Position Sitting Comments gentle STMs reduce neck tension Joint Mobilizations L scapulothoracic Grade II Body Position R LS Comments PROM sup/inf/adduction, AAROM abduction PT-OP-R Modalities Start: 01/04/24 10:36 Freq: Status: Active Protocol: Document 01/04/24 09:48 SP (Rec: 01/04/24 10:41 SP [id number]) Hot Pack/Cold Pack Treatment CP Location L shld Patient Position Hooklying Patient Tolerance Good PT-OP-T Assessment and Plan Start: 12/23/23 17:46 Freq: Status: Active Protocol: Document 02/15/24 10:49 DCW (Rec: 02/15/24 11:30 DCW [id number]) Physical Therapy Assessment Impairments Impairments Activity Tolerance,Functional Activities,Functional Mobility ,Pain,ROM,Soft Tissue Mobility ,Strength,Tone Goals One Impairment Pt does not have an appropriate home exercise program Short Term Goal (STG) Pt to be independent and compliant with an appropriate HEP STG Duration 03/17/24 Three Impairment Pt scores a 90.91% disability on the QuickDASH Longterm Goal (LTG) Pt to improve score on the QuickDASH to <50% in order to indicate an increased in ability to perform iALDs independently LTG Duration 04/17/24 Two Impairment Pt unable to perform AROM with right shoulder Longterm Goal (LTG) Pt to demonstrate 90? flexion and abduction in right shoulder AROM as progressed within post-op protocol in order to return to prior functional levels LTG Duration 04/17/24 Assessment Summary Assessment Pt doing fairly well 8 weeks s /p rTSA, still somewhat limited in active ROM. Pt admits she's getting frustrated by perceived lack of progress, had to have a discussion regarding realistic expectations following joint replacement. Pt does exhibit increasing tone in left biceps , getting more difficult to reach arm forward. Continue to work toward increasing ROM, start with strengthening at week 12, per post-op protocol. Physical Therapy Plan Frequency and Duration Frequency of Treatment 2x/Week Plan of Care Start Date 02/15/24 Plan of Care End Date 04/17/24 Therapeutic Interventions Therapeutic Interventions Home Exercise Program,Joint Mobilizations,Manual Therapy, Neuromuscular Re-education, Patient/Caregiver Education, Self-Care/Home Management,Soft Tissue Mobilization, Therapeutic Activities, Therapeutic Exercises Modalities Cold Pack/Ice Massage,Electric Stimulation,Hot Packs Next Visit Focus/Plan Next Note Type Treatment Note Next Visit Plan HEP: Active flexion, abduction , and ER, wall slides, tball rolls FF & scaption, side ER, shoulder rolls POC: AROM, shoulder mobility
--- NOTE | 2024-02-15 11:31 | PT.OPPOC ---
Physical, Occupational & Speech Therapy At [facility] Current Diagnoses Pain in left shoulder (02/15/24) Stiffness of left shoulder, not elsewhere classified (02/15/24) Complete rotator cuff tear or rupture of left shoulder, not specified as traumatic (02/15/24) Aftercare following joint replacement surgery (02/15/24) Visit Care Team Role Provider Type Natalie Garcia MD Family Provider Physician Primary Care Provider Specialty: Family Practice Address: [address] [place] [address] [place], [address] Email: [email or web address] Nils Lopez MD Attending Provider Physician Referring Provider Specialty: Orthopedics Orthopedic Surgery Address: [address] [place] [address], [id number] Email: [email or web address] Plan Of Care PT-OP-B Current Condition Start: 12/23/23 17:46 Freq: Status: Active Protocol: Document 12/23/23 17:00 DCW (Rec: 12/24/23 09:44 DCW [id number]) Current Condition History of Current Condition Onset Date 12/16/23 Current Complaints Right reverse Total shoulder replacement History of Current Condition Pt is a 78 year old female presenting one week s/p right rTSA following failure of conservative treatment of full -thickness supraspinatus and partial-thickness infraspinatus and subscapularis tears. Pt notes her pain is largely gone following surgery. Has already weaned herself off pain pills , and is taking extra-strength tylenol 3x/day. Has been compliant with post-op sling use, only removing for showers . Admits she has done pendulums a few times, but not as frequently as she should be. Pt has been trying really hard to behave myself and follow directions. PT-OP-T Assessment and Plan Start: 12/23/23 17:46 Freq: Status: Active Protocol: Document 02/15/24 10:49 DCW (Rec: 02/15/24 11:30 DCW [id number]) Physical Therapy Assessment Impairments Impairments Activity Tolerance,Functional Activities,Functional Mobility ,Pain,ROM,Soft Tissue Mobility ,Strength,Tone Goals One Impairment Pt does not have an appropriate home exercise program Short Term Goal (STG) Pt to be independent and compliant with an appropriate HEP STG Duration 03/17/24 Three Impairment Pt scores a 90.91% disability on the QuickDASH Residential Goal (LTG) Pt to improve score on the QuickDASH to <50% in order to indicate an increased in ability to perform iALDs independently LTG Duration 04/17/24 Two Impairment Pt unable to perform AROM with right shoulder Residential Goal (LTG) Pt to demonstrate 90? flexion and abduction in right shoulder AROM as progressed within post-op protocol in order to return to prior functional levels LTG Duration 04/17/24 Assessment Summary Assessment Pt doing fairly well 8 weeks s /p rTSA, still somewhat limited in active ROM. Pt admits she's getting frustrated by perceived lack of progress, had to have a discussion regarding realistic expectations following joint replacement. Pt does exhibit increasing tone in left biceps , getting more difficult to reach arm forward. Continue to work toward increasing ROM, start with strengthening at week 12, per post-op protocol. Physical Therapy Plan Frequency and Duration Frequency of Treatment 2x/Week Plan of Care Start Date 02/15/24 Plan of Care End Date 04/17/24 Therapeutic Interventions Therapeutic Interventions Home Exercise Program,Joint Mobilizations,Manual Therapy, Neuromuscular Re-education, Patient/Caregiver Education, Self-Care/Home Management,Soft Tissue Mobilization, Therapeutic Activities, Therapeutic Exercises Modalities Cold Pack/Ice Massage,Electric Stimulation,Hot Packs Next Visit Focus/Plan Next Note Type Treatment Note Next Visit Plan HEP: Active flexion, abduction , and ER, wall slides, tball rolls FF & scaption, side ER, shoulder rolls POC: AROM, shoulder mobility Plan of Care Dates Plan of Care Start Date 02/15/24 Plan of Care End Date 04/17/24 Electronically Signed by: Vince Amin, PT 02/15/24 [id number] If you are in agreement with this Plan of Care, please return a signed and dated copy. I have reviewed this Plan of Care and certify that the skilled therapy services above are required to meet the patient?s needs. Physician Signature Date Printed Name and Credentials Clinical Instructor Signature Printed Name and Credentials
--- NOTE | 2024-02-18 08:16 | PT.OTN ---
Current Diagnoses Pain in left shoulder (02/18/24) Stiffness of left shoulder, not elsewhere classified (02/18/24) Complete rotator cuff tear or rupture of left shoulder, not specified as traumatic (02/18/24) Aftercare following joint replacement surgery (02/18/24) Physical Therapy Treatment Note PT-OP-A Visit Information Start: 12/23/23 17:46 Freq: Status: Active Protocol: Document 02/18/24 07:34 SP (Rec: 02/18/24 08:17 SP [id number]) Out-Patient Physical Therapy Visit Information Visit Information Visit Type Treatment Note Visit Start Time 07:34 Visit Stop Time 08:16 Visit Number 11 Number of LENS BLOCKER Visits 1 Evaluation Information Evaluation Date 12/23/23 Precautions Precautions 12/16/23: s/p reverse L shld First 3 weeks: ROM Pendulums only Weeks 0-2: Elbow, wrist, finger ROM, no ER past neutral Weeks 2-6: Shoulder PROM, no lifting, no ER past neutral Weeks 6-12 AROM/PROM as tolerated, no lifting more than 3 pounds Months 3-6: Full ROM, progress to unrestricted lifting Months 6-12: Full ROM, Full weight bearing, no restrictions PT-OP-B Current Condition Start: 12/23/23 17:46 Freq: Status: Active Protocol: Document 12/23/23 17:00 DCW (Rec: 12/24/23 09:44 DCW [id number]) Current Condition History of Current Condition Onset Date 12/16/23 Current Complaints Right reverse Total shoulder replacement History of Current Condition Pt is a 78 year old female presenting one week s/p right rTSA following failure of conservative treatment of full -thickness supraspinatus and partial-thickness infraspinatus and subscapularis tears. Pt notes her pain is largely gone following surgery. Has already weaned herself off pain pills , and is taking extra-strength tylenol 3x/day. Has been compliant with post-op sling use, only removing for showers . Admits she has done pendulums a few times, but not as frequently as she should be. Pt has been trying really hard to behave myself and follow directions. PT-OP-C Subjective Start: 12/23/23 17:46 Freq: Status: Active Protocol: Document 02/18/24 07:34 SP (Rec: 02/18/24 08:17 SP [id number]) OP-PT Subjective Patient Comments Patient Comments Pt report thinks should have more ROM than has reaching up in front, tries not to lift shoulder to help but is hard. PT-OP-K Range of Motion Start: 12/23/23 17:46 Freq: Status: Active Protocol: Document 02/15/24 10:49 DCW (Rec: 02/15/24 11:03 DCW [id number]) Shoulder Goniometric Range of Motion Shoulder Left Active Testing Position Standing Flexion 56 Abduction 51 External Rotation at 0 degrees Abduction 33 Left Passive Shoulder ROM WFL No Testing Position Supine Flexion 111 Abduction 78 External Rotation at 0 degrees Abduction 24 Right Active Shoulder ROM WFL Yes Testing Position Sitting Flexion 170 Abduction 180 PT-OP-M Strength Start: 12/23/23 17:46 Freq: Status: Active Protocol: Document 02/15/24 10:49 DCW (Rec: 02/15/24 11:03 DCW [id number]) Shoulder Strength Shoulder Manual Muscle Testing Left Flexion 2- Poor- Abduction (C5) 2- Poor- External Rotation 2 Poor PT-OP-Q Treatments Start: 12/23/23 17:46 Freq: Status: Active Protocol: Document 02/18/24 07:34 SP (Rec: 02/18/24 08:17 SP [id number]) Therapeutic Exercises Supine Exercises Flexion Supine Exercise Name Flexion Side left Resistance AAROM- RUE assist L (2 positions) Equipment Used dowel Reps/Minutes x10 reps Comments 115 deg Sidelying Exercises Abduction Sidelying Exercise Name Shoulder Abduction Side left Resistance R SL- AROM Reps/Minutes several reps Comments quivering end feel, tactile cue reduction, jaw & UT recruitment External Rotation Sidelying Exercise Name Shoulder ER Side left Resistance AROM Reps/Minutes x10 reps Sitting Exercises Pulleys Sitting Exercise Name PROM - Pulleys in flexion, scaption, abduction Side bilateral Equipment Used mirror front for self feedback postural alignment Reps/Minutes 10 reps each Comments cued elbow extension improved scap depress. Manual Therapy Treatment Consent Patient gave verbal consent for manual Yes treatment Soft Tissue Mobilization Upper Arm Body Location L Biceps, Deltoid, pec, lat Mobilization Type Rolling Intensity/Depth Moderate Body Position Supine Comments sit, R SL Joint Mobilizations L scapulothoracic Grade II Body Position R LS Comments PROM sup/inf/adduction, AAROM abduction Self-Care/Home Management Treatment Education Patient Education Body Mechanics,Posture Other Education arm swing PT-OP-R Modalities Start: 01/04/24 10:36 Freq: Status: Active Protocol: Document 01/04/24 09:48 SP (Rec: 01/04/24 10:41 SP [id number]) Hot Pack/Cold Pack Treatment CP Location L shld Patient Position Hooklying Patient Tolerance Good PT-OP-T Assessment and Plan Start: 12/23/23 17:46 Freq: Status: Active Protocol: Document 02/18/24 07:34 SP (Rec: 02/18/24 08:17 SP [id number]) Physical Therapy Assessment Goals One Impairment Pt does not have an appropriate home exercise program Short Term Goal (STG) Pt to be independent and compliant with an appropriate HEP STG Duration 03/17/24 Three Impairment Pt scores a 90.91% disability on the QuickDASH Impairment . Alf Goal (LTG) Pt to improve score on the QuickDASH to <50% in order to indicate an increased in ability to perform iALDs independently LTG Duration 04/17/24 Two Impairment Pt unable to perform AROM with right shoulder Impairment . Installation Helper Goal (LTG) Pt to demonstrate 90? flexion and abduction in right shoulder AROM as progressed within post-op protocol in order to return to prior functional levels LTG Duration 04/17/24 Assessment Summary Assessment Pt improved scapular depression and UR post manual and use dowel gained into 115 deg FF in supine. Cues for tricep elbow ext and LT activation while use mirror during pulleys improved pt awareness of decreased UT and facial recruitment. LENS BLOCKER recommended to pt to purchase pulleys for carryover upright ROM progression with verbalized in agreement. She reports less neck tension end tx with supported better mechanics during AAROM the francie . Physical Therapy Plan Frequency and Duration Frequency of Treatment 2x/Week Plan of Care Start Date 02/15/24 Plan of Care End Date 04/17/24 Therapeutic Interventions Therapeutic Interventions Home Exercise Program,Joint Mobilizations,Manual Therapy, Neuromuscular Re-education, Patient/Caregiver Education, Self-Care/Home Management,Soft Tissue Mobilization, Therapeutic Activities, Therapeutic Exercises Modalities Cold Pack/Ice Massage,Electric Stimulation,Hot Packs Next Visit Focus/Plan Next Note Type Treatment Note Next Visit Plan HEP: Active flexion, abduction , and ER, wall slides, tball rolls FF & scaption, side ER, shoulder rolls, check purchasing pulleys. POC: AROM, shoulder mobility
--- NOTE | 2024-02-25 10:31 | PT.OTN ---
Current Diagnoses Pain in left shoulder (02/25/24) Stiffness of left shoulder, not elsewhere classified (02/25/24) Complete rotator cuff tear or rupture of left shoulder, not specified as traumatic (02/25/24) Aftercare following joint replacement surgery (02/25/24) Physical Therapy Treatment Note PT-OP-A Visit Information Start: 12/23/23 17:46 Freq: Status: Active Protocol: Document 02/25/24 09:45 DCW (Rec: 02/25/24 10:31 DCW [id number]) Out-Patient Physical Therapy Visit Information Visit Information Visit Type Treatment Note Visit Start Time 09:45 Visit Stop Time 10:30 Visit Number 12 Number of MOTION PICTURE SET WORKER Visits 0 Evaluation Information Evaluation Date 12/23/23 Precautions Precautions 12/16/23: s/p reverse L shld First 3 weeks: ROM Pendulums only Weeks 0-2: Elbow, wrist, finger ROM, no ER past neutral Weeks 2-6: Shoulder PROM, no lifting, no ER past neutral Weeks 6-12 AROM/PROM as tolerated, no lifting more than 3 pounds Months 3-6: Full ROM, progress to unrestricted lifting Months 6-12: Full ROM, Full weight bearing, no restrictions PT-OP-B Current Condition Start: 12/23/23 17:46 Freq: Status: Active Protocol: Document 12/23/23 17:00 DCW (Rec: 12/24/23 09:44 DCW [id number]) Current Condition History of Current Condition Onset Date 12/16/23 Current Complaints Right reverse Total shoulder replacement History of Current Condition Pt is a 78 year old female presenting one week s/p right rTSA following failure of conservative treatment of full -thickness supraspinatus and partial-thickness infraspinatus and subscapularis tears. Pt notes her pain is largely gone following surgery. Has already weaned herself off pain pills , and is taking extra-strength tylenol 3x/day. Has been compliant with post-op sling use, only removing for showers . Admits she has done pendulums a few times, but not as frequently as she should be. Pt has been trying really hard to behave myself and follow directions. PT-OP-C Subjective Start: 12/23/23 17:46 Freq: Status: Active Protocol: Document 02/25/24 09:45 DCW (Rec: 02/25/24 10:31 DCW [id number]) OP-PT Subjective Patient Comments Patient Comments Well, it feels better than it did 8 weeks ago, but it still bothers me. PT-OP-K Range of Motion Start: 12/23/23 17:46 Freq: Status: Active Protocol: Document 02/15/24 10:49 DCW (Rec: 02/15/24 11:03 DCW [id number]) Shoulder Goniometric Range of Motion Shoulder Left Active Testing Position Standing Flexion 56 Abduction 51 External Rotation at 0 degrees Abduction 33 Left Passive Shoulder ROM WFL No Testing Position Supine Flexion 111 Abduction 78 External Rotation at 0 degrees Abduction 24 Right Active Shoulder ROM WFL Yes Testing Position Sitting Flexion 170 Abduction 180 PT-OP-M Strength Start: 12/23/23 17:46 Freq: Status: Active Protocol: Document 02/15/24 10:49 DCW (Rec: 02/15/24 11:03 DCW [id number]) Shoulder Strength Shoulder Manual Muscle Testing Left Flexion 2- Poor- Abduction (C5) 2- Poor- External Rotation 2 Poor PT-OP-Q Treatments Start: 12/23/23 17:46 Freq: Status: Active Protocol: Document 02/25/24 09:45 DCW (Rec: 02/25/24 10:31 DCW [id number]) Cardio Equipment Upper Body Ergometer (UBE) Duration (Minutes) 4 RPM 60 Seat Position 9 Height 2.5 Other Fwd/Bkwd every 30 sec Therapeutic Exercises Supine Exercises Flexion Supine Exercise Name Flexion /c PVC Side left Resistance AAROM- RUE assist L Comments 127? Sitting Exercises Pulleys Sitting Exercise Name PROM - Pulleys in flexion, scaption, abduction Side bilateral Equipment Used mirror front for self feedback postural alignment Comments cued elbow extension improved scap depress. Manual Therapy Treatment Consent Patient gave verbal consent for manual Yes treatment Soft Tissue Mobilization Upper Arm Body Location L Biceps, Deltoid, pec, lat Mobilization Type Rolling Intensity/Depth Moderate Body Position Supine Comments sit, R SL L neck Body Location UT, LS Mobilization Type Myofascial Release,Rolling Intensity/Depth Moderate Body Position Sitting Comments gentle STMs reduce neck tension Joint Mobilizations L scapulothoracic Grade II Body Position R LS Comments PROM sup/inf/adduction, AAROM abduction PT-OP-R Modalities Start: 01/04/24 10:36 Freq: Status: Active Protocol: Document 01/04/24 09:48 SP (Rec: 01/04/24 10:41 SP [id number]) Hot Pack/Cold Pack Treatment CP Location L shld Patient Position Hooklying Patient Tolerance Good PT-OP-T Assessment and Plan Start: 12/23/23 17:46 Freq: Status: Active Protocol: Document 02/25/24 09:45 DCW (Rec: 02/25/24 10:31 DCW [id number]) Physical Therapy Assessment Impairments Impairments Activity Tolerance,Functional Activities,Functional Mobility ,Pain,ROM,Soft Tissue Mobility ,Strength,Tone Goals One Impairment Pt does not have an appropriate home exercise program Short Term Goal (STG) Pt to be independent and compliant with an appropriate HEP STG Duration 03/17/24 Three Impairment Pt scores a 90.91% disability on the QuickDASH Process Supervisor Goal (LTG) Pt to improve score on the QuickDASH to <50% in order to indicate an increased in ability to perform iALDs independently LTG Duration 04/17/24 Two Impairment Pt unable to perform AROM with right shoulder Process Supervisor Goal (LTG) Pt to demonstrate 90? flexion and abduction in right shoulder AROM as progressed within post-op protocol in order to return to prior functional levels LTG Duration 04/17/24 Assessment Summary Assessment Pt showing some improvement with AAROM, supine flexion improved by 12? since one week ago to 127?. Pt still frustrated with perceived lack of progress, spent time discussing overall progress, and post-op precautions vs expectations, pt noted feeling better about things by end of session. Physical Therapy Plan Frequency and Duration Frequency of Treatment 2x/Week Plan of Care Start Date 02/15/24 Plan of Care End Date 04/17/24 Therapeutic Interventions Therapeutic Interventions Home Exercise Program,Joint Mobilizations,Manual Therapy, Neuromuscular Re-education, Patient/Caregiver Education, Self-Care/Home Management,Soft Tissue Mobilization, Therapeutic Activities, Therapeutic Exercises Modalities Cold Pack/Ice Massage,Electric Stimulation,Hot Packs Next Visit Focus/Plan Next Note Type Treatment Note Next Visit Plan HEP: Active flexion, abduction , and ER, wall slides, tball rolls FF & scaption, side ER, shoulder rolls, check purchasing pulleys. POC: AROM, shoulder mobility
--- NOTE | 2024-03-06 10:29 | PT.OTN ---
Current Diagnoses Pain in left shoulder (03/06/24) Stiffness of left shoulder, not elsewhere classified (03/06/24) Complete rotator cuff tear or rupture of left shoulder, not specified as traumatic (03/06/24) Aftercare following joint replacement surgery (03/06/24) Physical Therapy Treatment Note PT-OP-A Visit Information Start: 12/23/23 17:46 Freq: Status: Active Protocol: Document 03/06/24 09:49 DCW (Rec: 03/06/24 10:29 DCW [id number]) Out-Patient Physical Therapy Visit Information Visit Information Visit Type Treatment Note Visit Start Time 09:49 Visit Stop Time 10:30 Visit Number 13 Number of SPRING SALVAGE WORKER Visits 0 Evaluation Information Evaluation Date 12/23/23 Precautions Precautions 12/16/23: s/p reverse L shld First 3 weeks: ROM Pendulums only Weeks 0-2: Elbow, wrist, finger ROM, no ER past neutral Weeks 2-6: Shoulder PROM, no lifting, no ER past neutral Weeks 6-12 AROM/PROM as tolerated, no lifting more than 3 pounds Months 3-6: Full ROM, progress to unrestricted lifting Months 6-12: Full ROM, Full weight bearing, no restrictions PT-OP-B Current Condition Start: 12/23/23 17:46 Freq: Status: Active Protocol: Document 12/23/23 17:00 DCW (Rec: 12/24/23 09:44 DCW [id number]) Current Condition History of Current Condition Onset Date 12/16/23 Current Complaints Right reverse Total shoulder replacement History of Current Condition Pt is a 78 year old female presenting one week s/p right rTSA following failure of conservative treatment of full -thickness supraspinatus and partial-thickness infraspinatus and subscapularis tears. Pt notes her pain is largely gone following surgery. Has already weaned herself off pain pills , and is taking extra-strength tylenol 3x/day. Has been compliant with post-op sling use, only removing for showers . Admits she has done pendulums a few times, but not as frequently as she should be. Pt has been trying really hard to behave myself and follow directions. PT-OP-C Subjective Start: 12/23/23 17:46 Freq: Status: Active Protocol: Document 03/06/24 09:49 DCW (Rec: 03/06/24 10:29 DCW [id number]) OP-PT Subjective Patient Comments Patient Comments Pt reports her shoulder is fine, I guess. Tried to sleep on it last night, reports it felt weird, but it didn't hurt. PT-OP-K Range of Motion Start: 12/23/23 17:46 Freq: Status: Active Protocol: Document 02/15/24 10:49 DCW (Rec: 02/15/24 11:03 DCW [id number]) Shoulder Goniometric Range of Motion Shoulder Left Active Testing Position Standing Flexion 56 Abduction 51 External Rotation at 0 degrees Abduction 33 Left Passive Shoulder ROM WFL No Testing Position Supine Flexion 111 Abduction 78 External Rotation at 0 degrees Abduction 24 Right Active Shoulder ROM WFL Yes Testing Position Sitting Flexion 170 Abduction 180 PT-OP-M Strength Start: 12/23/23 17:46 Freq: Status: Active Protocol: Document 02/15/24 10:49 DCW (Rec: 02/15/24 11:03 DCW [id number]) Shoulder Strength Shoulder Manual Muscle Testing Left Flexion 2- Poor- Abduction (C5) 2- Poor- External Rotation 2 Poor PT-OP-Q Treatments Start: 12/23/23 17:46 Freq: Status: Active Protocol: Document 03/06/24 09:49 DCW (Rec: 03/06/24 10:29 DCW [id number]) Cardio Equipment Upper Body Ergometer (UBE) Duration (Minutes) 4 RPM 60 Seat Position 9 Height 2.5 Other Fwd/Bkwd every 30 sec Therapeutic Exercises Sitting Exercises Pulleys Sitting Exercise Name PROM - Pulleys in flexion, scaption, abduction Side bilateral Equipment Used mirror front for self feedback postural alignment Comments cued elbow extension improved scap depress. Standing Exercises Abduction Standing Exercise Name Abduction Side left Resistance AROM Flexion Standing Exercise Name Flexion Side left Resistance AROM Manual Therapy Treatment Consent Patient gave verbal consent for manual Yes treatment Soft Tissue Mobilization Upper Arm Body Location L Biceps, Deltoid, pec, lat Mobilization Type Rolling Intensity/Depth Moderate Body Position Supine Comments sit, R SL L neck Body Location UT, LS Mobilization Type Myofascial Release,Rolling Intensity/Depth Moderate Body Position Sitting Comments gentle STMs reduce neck tension Joint Mobilizations L scapulothoracic Grade II Body Position R LS Comments PROM sup/inf/adduction, AAROM abduction PT-OP-R Modalities Start: 01/04/24 10:36 Freq: Status: Active Protocol: Document 01/04/24 09:48 SP (Rec: 01/04/24 10:41 SP [id number]) Hot Pack/Cold Pack Treatment CP Location L shld Patient Position Hooklying Patient Tolerance Good PT-OP-T Assessment and Plan Start: 12/23/23 17:46 Freq: Status: Active Protocol: Document 03/06/24 09:49 DCW (Rec: 03/06/24 10:29 DCW [id number]) Physical Therapy Assessment Impairments Impairments Activity Tolerance,Functional Activities,Functional Mobility ,Pain,ROM,Soft Tissue Mobility ,Strength,Tone Goals One Impairment Pt does not have an appropriate home exercise program Short Term Goal (STG) Pt to be independent and compliant with an appropriate HEP STG Duration 03/17/24 Three Impairment Pt scores a 90.91% disability on the QuickDASH Care Home Goal (LTG) Pt to improve score on the QuickDASH to <50% in order to indicate an increased in ability to perform iALDs independently LTG Duration 04/17/24 Two Impairment Pt unable to perform AROM with right shoulder Pan Helper Goal (LTG) Pt to demonstrate 90? flexion and abduction in right shoulder AROM as progressed within post-op protocol in order to return to prior functional levels LTG Duration 04/17/24 Assessment Summary Assessment 12 week shannon from surgery on . Pt may start some gentle strengthening at that time. Pt tolerated treatment well today, although still frustrated by lack of AROM. Physical Therapy Plan Frequency and Duration Frequency of Treatment 2x/Week Plan of Care Start Date 02/15/24 Plan of Care End Date 04/17/24 Therapeutic Interventions Therapeutic Interventions Home Exercise Program,Joint Mobilizations,Manual Therapy, Neuromuscular Re-education, Patient/Caregiver Education, Self-Care/Home Management,Soft Tissue Mobilization, Therapeutic Activities, Therapeutic Exercises Modalities Cold Pack/Ice Massage,Electric Stimulation,Hot Packs Next Visit Focus/Plan Next Note Type Treatment Note Next Visit Plan Start gentle strengthening POC: AROM, shoulder mobility
--- NOTE | 2024-03-09 11:34 | PT.OTN ---
Current Diagnoses Pain in left shoulder (03/09/24) Stiffness of left shoulder, not elsewhere classified (03/09/24) Complete rotator cuff tear or rupture of left shoulder, not specified as traumatic (03/09/24) Aftercare following joint replacement surgery (03/09/24) Physical Therapy Treatment Note PT-OP-A Visit Information Start: 12/23/23 17:46 Freq: Status: Active Protocol: Document 03/09/24 10:48 SP (Rec: 03/09/24 11:37 SP [id number]) Out-Patient Physical Therapy Visit Information Visit Information Visit Type Treatment Note Visit Start Time 10:48 Visit Stop Time 11:34 Visit Number 14 (07/15 with PN) Number of [employer]ICER Visits 1 Evaluation Information Evaluation Date 12/23/23 Precautions Precautions 12/16/23: s/p reverse L shld First 3 weeks: ROM Pendulums only Weeks 0-2: Elbow, wrist, finger ROM, no ER past neutral Weeks 2-6: Shoulder PROM, no lifting, no ER past neutral Weeks 6-12 AROM/PROM as tolerated, no lifting more than 3 pounds Months 3-6: Full ROM, progress to unrestricted lifting Months 6-12: Full ROM, Full weight bearing, no restrictions PT-OP-B Current Condition Start: 12/23/23 17:46 Freq: Status: Active Protocol: Document 12/23/23 17:00 DCW (Rec: 12/24/23 09:44 DCW [id number]) Current Condition History of Current Condition Onset Date 12/16/23 Current Complaints Right reverse Total shoulder replacement History of Current Condition Pt is a 78 year old female presenting one week s/p right rTSA following failure of conservative treatment of full -thickness supraspinatus and partial-thickness infraspinatus and subscapularis tears. Pt notes her pain is largely gone following surgery. Has already weaned herself off pain pills , and is taking extra-strength tylenol 3x/day. Has been compliant with post-op sling use, only removing for showers . Admits she has done pendulums a few times, but not as frequently as she should be. Pt has been trying really hard to behave myself and follow directions. PT-OP-C Subjective Start: 12/23/23 17:46 Freq: Status: Active Protocol: Document 03/09/24 10:48 SP (Rec: 03/09/24 11:37 SP [id number]) OP-PT Subjective Patient Comments Patient Comments Pt reports today is 12 weeks and allowed to start incorporating strengthening. Is still challenging SHALONDA reaching up in front and side. She stated did get pulleys now for home, PT adjusted them . PT-OP-K Range of Motion Start: 12/23/23 17:46 Freq: Status: Active Protocol: Document 02/15/24 10:49 DCW (Rec: 02/15/24 11:03 DCW [id number]) Shoulder Goniometric Range of Motion Shoulder Left Active Testing Position Standing Flexion 56 Abduction 51 External Rotation at 0 degrees Abduction 33 Left Passive Shoulder ROM WFL No Testing Position Supine Flexion 111 Abduction 78 External Rotation at 0 degrees Abduction 24 Right Active Shoulder ROM WFL Yes Testing Position Sitting Flexion 170 Abduction 180 PT-OP-M Strength Start: 12/23/23 17:46 Freq: Status: Active Protocol: Document 02/15/24 10:49 DCW (Rec: 02/15/24 11:03 DCW [id number]) Shoulder Strength Shoulder Manual Muscle Testing Left Flexion 2- Poor- Abduction (C5) 2- Poor- External Rotation 2 Poor PT-OP-Q Treatments Start: 12/23/23 17:46 Freq: Status: Active Protocol: Document 03/09/24 10:48 SP (Rec: 03/09/24 11:37 SP [id number]) Cardio Equipment Upper Body Ergometer (UBE) Duration (Minutes) 4 RPM 60 Seat Position 9 Height 2.5 Other Fwd/Bkwd every 30 sec- ed cues no shld elevation recruitment Therapeutic Exercises Sidelying Exercises scapular clocks Sidelying Exercise Name 02/10, 01/10, 12/09 o'clock- protraction/retraction glides Side left Resistance R SL: LUE AAROM/AROM Comments ed during manual assist ex: ABD, HABD, FF Abduction Sidelying Exercise Name Shoulder Abduction, FF, HABD Side left Resistance R SL- AROM Reps/Minutes several reps Comments quivering end feel, tactile cue scap add&UR, Sitting Exercises Pulleys Sitting Exercise Name PROM - Pulleys in flexion, scaption, abduction- sit then stand Side bilateral Resistance R assist L Equipment Used mirror front for self feedback postural alignment Comments Max tactile & VCs elbow extension /c fac scap dep & UR , no jaw/UT recruit. Standing Exercises Abduction Standing Exercise Name Abduction Side left Resistance AROM Equipment Used front mirror Reps/Minutes 2 reps Comments challenged scap stab and complete range Flexion Standing Exercise Name Flexion Side left Resistance AROM Equipment Used front mirror Reps/Minutes 2 reps Comments challenged scap stab and complete range Wall slides Standing Exercise Name wall walking Side left Reps/Minutes 3 reps Comments cued stop challengeing range and initiate scap depression glide Manual Therapy Treatment Consent Patient gave verbal consent for manual Yes treatment Soft Tissue Mobilization Upper Arm Body Location L Biceps, Deltoid, pec, lat, SA Mobilization Type Rolling Intensity/Depth Moderate Body Position R SL Comments gentle STMs between AAROM fac mobility L shld scar mobility Mobilization Type Rolling Body Position R SL Comments gentle scar mobility through shirt L neck Body Location L UT, LS Mobilization Type Myofascial Release,Rolling Intensity/Depth Moderate Body Position R SL Comments gentle STMs reduce neck tension Joint Mobilizations L scapulothoracic Joint clock glide positioning Grade II Body Position R LS Comments -PROM sup/inf/adduction (R SL and seated) -AAROM FF UR, HABD protract/retraction with slight inf glide -Inf & UR during abduction then added serratus press /c clock 12&6, 11/5, 12/09- * improved decrease scapular UT recruitment and more rhomboid/ SA/LT engagement. Self-Care/Home Management Treatment Education Patient Education Body Mechanics Other Education Extra time spent anatomy and mechanics verbal and tactil cues for scapular glide during AROM/AROM L shld. Improved LT fac with act by end tx. PT-OP-R Modalities Start: 01/04/24 10:36 Freq: Status: Active Protocol: Document 01/04/24 09:48 SP (Rec: 01/04/24 10:41 SP [id number]) Hot Pack/Cold Pack Treatment CP Location L shld Patient Position Hooklying Patient Tolerance Good PT-OP-T Assessment and Plan Start: 12/23/23 17:46 Freq: Status: Active Protocol: Document 03/09/24 10:48 SP (Rec: 03/09/24 11:37 SP [id number]) Physical Therapy Assessment Goals One Impairment Pt does not have an appropriate home exercise program Short Term Goal (STG) Pt to be independent and compliant with an appropriate HEP STG Duration 03/17/24 Three Impairment Pt scores a 90.91% disability on the QuickDASH Impairment . Tobacco Prizer Goal (LTG) Pt to improve score on the QuickDASH to <50% in order to indicate an increased in ability to perform iALDs independently LTG Duration 04/17/24 Two Impairment Pt unable to perform AROM with right shoulder Impairment . Snf Goal (LTG) Pt to demonstrate 90? flexion and abduction in right shoulder AROM as progressed within post-op protocol in order to return to prior functional levels LTG Duration 04/17/24 Assessment Summary Assessment Extra time spend ed anatomy and facilitated scapular glides (inf, add, UR) in R SL during FF/ABD/HABD, sitting and standing during pulleys with use mirror self feedback and max tactile and VCs to assist increase ROM, Rhomboid and LT recrutiment with less UT compensations. Was able to progress into AROM in R SL. Still a challenge AROM FF and wall walks end tx. Physical Therapy Plan Frequency and Duration Frequency of Treatment 2x/Week Plan of Care Start Date 02/15/24 Plan of Care End Date 04/17/24 Therapeutic Interventions Therapeutic Interventions Home Exercise Program,Joint Mobilizations,Manual Therapy, Neuromuscular Re-education, Patient/Caregiver Education, Self-Care/Home Management,Soft Tissue Mobilization, Therapeutic Activities, Therapeutic Exercises Modalities Cold Pack/Ice Massage,Electric Stimulation,Hot Packs Next Visit Focus/Plan Next Note Type Treatment Note Next Visit Plan Start gentle strengthening AROM against gravity, trial eccentric FF rear facing TB next tx. POC: AROM, shoulder mobility
--- NOTE | 2024-03-13 10:32 | PT.OTN ---
Current Diagnoses Pain in left shoulder (03/13/24) Stiffness of left shoulder, not elsewhere classified (03/13/24) Complete rotator cuff tear or rupture of left shoulder, not specified as traumatic (03/13/24) Aftercare following joint replacement surgery (03/13/24) Physical Therapy Treatment Note PT-OP-A Visit Information Start: 12/23/23 17:46 Freq: Status: Active Protocol: Document 03/13/24 09:47 SP (Rec: 03/13/24 10:44 SP [id number]) Out-Patient Physical Therapy Visit Information Visit Information Visit Type Treatment Note Visit Start Time 09:47 Visit Stop Time 10:32 Visit Number 14 (08/15 with PN) Number of PLANT P[employer]ER Visits 2 Evaluation Information Evaluation Date 12/23/23 Precautions Precautions 12/16/23: s/p reverse L shld First 3 weeks: ROM Pendulums only Weeks 0-2: Elbow, wrist, finger ROM, no ER past neutral Weeks 2-6: Shoulder PROM, no lifting, no ER past neutral Weeks 6-12 AROM/PROM as tolerated, no lifting more than 3 pounds Months 3-6: Full ROM, progress to unrestricted lifting Months 6-12: Full ROM, Full weight bearing, no restrictions PT-OP-B Current Condition Start: 12/23/23 17:46 Freq: Status: Active Protocol: Document 12/23/23 17:00 DCW (Rec: 12/24/23 09:44 DCW [id number]) Current Condition History of Current Condition Onset Date 12/16/23 Current Complaints Right reverse Total shoulder replacement History of Current Condition Pt is a 78 year old female presenting one week s/p right rTSA following failure of conservative treatment of full -thickness supraspinatus and partial-thickness infraspinatus and subscapularis tears. Pt notes her pain is largely gone following surgery. Has already weaned herself off pain pills , and is taking extra-strength tylenol 3x/day. Has been compliant with post-op sling use, only removing for showers . Admits she has done pendulums a few times, but not as frequently as she should be. Pt has been trying really hard to behave myself and follow directions. PT-OP-C Subjective Start: 12/23/23 17:46 Freq: Status: Active Protocol: Document 03/13/24 09:47 SP (Rec: 03/13/24 10:44 SP [id number]) OP-PT Subjective Patient Comments Patient Comments Pt reports was pretty sore after last tx. Trying to be more compliant with use pullies. PT-OP-K Range of Motion Start: 12/23/23 17:46 Freq: Status: Active Protocol: Document 02/15/24 10:49 DCW (Rec: 02/15/24 11:03 DCW [id number]) Shoulder Goniometric Range of Motion Shoulder Left Active Testing Position Standing Flexion 56 Abduction 51 External Rotation at 0 degrees Abduction 33 Left Passive Shoulder ROM WFL No Testing Position Supine Flexion 111 Abduction 78 External Rotation at 0 degrees Abduction 24 Right Active Shoulder ROM WFL Yes Testing Position Sitting Flexion 170 Abduction 180 PT-OP-M Strength Start: 12/23/23 17:46 Freq: Status: Active Protocol: Document 02/15/24 10:49 DCW (Rec: 02/15/24 11:03 DCW [id number]) Shoulder Strength Shoulder Manual Muscle Testing Left Flexion 2- Poor- Abduction (C5) 2- Poor- External Rotation 2 Poor PT-OP-Q Treatments Start: 12/23/23 17:46 Freq: Status: Active Protocol: Document 03/13/24 09:47 SP (Rec: 03/13/24 10:44 SP [id number]) Cardio Equipment Upper Body Ergometer (UBE) Duration (Minutes) 5 RPM 50 Seat Position 8 Height 2.5 Other Fwd/Bkwd every 30 sec- ed cues no shld elevation recruitment Therapeutic Exercises Supine Exercises Over noodle Supine Exercise Name added to HEP w/ HO: HABD, FF, ER Resistance TB #1 FF, HABD, 1# DB ER Equipment Used over noodle Reps/Minutes 10 reps each Comments cued scapular motion, pnfree slow controlled range/motion- improved range Sidelying Exercises scapular clocks Sidelying Exercise Name 12/6, 11/5, 10/4 o'clock- protraction/retraction glides Side left Resistance R SL: LUE AAROM/AROM Equipment Used seated during pullies Comments tactile cues end feel range, improved range, scap mobiltiy Sitting Exercises Pulleys Sitting Exercise Name PROM - Pulleys in flexion, scaption, abduction- sit then stand Side bilateral Resistance R assist L Equipment Used mirror front for self feedback postural alignment Comments Max tactile & VCs elbow extension /c fac scap dep & UR , no jaw/UT recruit. Other Exercises self STMs Other Exercise Name lat, Rhomboid, pec: ed continue home self STMs- forgot add HO Side left Comments Ed use tennis ball in pillowcase back to wall self STMs. Manual Therapy Treatment Consent Patient gave verbal consent for manual Yes treatment Soft Tissue Mobilization Upper Arm Body Location L Biceps, Deltoid, pec, lat, SA, tricep, Mobilization Type Rolling Intensity/Depth Moderate Body Position seated Comments gentle STMs between AAROM fac mobility Ed use tennis ball in pillowcase back to wall self STMs. L neck Body Location L UT, LS Mobilization Type Myofascial Release,Rolling Intensity/Depth Moderate Body Position seated Comments gentle STMs reduce neck tension PT-OP-R Modalities Start: 01/04/24 10:36 Freq: Status: Active Protocol: Document 01/04/24 09:48 SP (Rec: 01/04/24 10:41 SP [id number]) Hot Pack/Cold Pack Treatment CP Location L shld Patient Position Hooklying Patient Tolerance Good PT-OP-T Assessment and Plan Start: 12/23/23 17:46 Freq: Status: Active Protocol: Document 03/13/24 09:47 SP (Rec: 03/13/24 10:44 SP [id number]) Physical Therapy Assessment Goals One Impairment Pt does not have an appropriate home exercise program Short Term Goal (STG) Pt to be independent and compliant with an appropriate HEP STG Duration 03/17/24 Three Impairment Pt scores a 90.91% disability on the QuickDASH Impairment . Group Home Goal (LTG) Pt to improve score on the QuickDASH to <50% in order to indicate an increased in ability to perform iALDs independently LTG Duration 04/17/24 Two Impairment Pt unable to perform AROM with right shoulder Impairment . Group Home Goal (LTG) Pt to demonstrate 90? flexion and abduction in right shoulder AROM as progressed within post-op protocol in order to return to prior functional levels LTG Duration 04/17/24 Assessment Summary Assessment Pt decreased muscle tension after manual. Provided education self application ball in pillow case on wall, good response. Improved scapular and LUE ROM use TB and DB supine over noodle for successful progression home carryover. Provided HOs and TB and will use soup can suggestion. Physical Therapy Plan Frequency and Duration Frequency of Treatment 2x/Week Plan of Care Start Date 02/15/24 Plan of Care End Date 04/17/24 Therapeutic Interventions Therapeutic Interventions Home Exercise Program,Joint Mobilizations,Manual Therapy, Neuromuscular Re-education, Patient/Caregiver Education, Self-Care/Home Management,Soft Tissue Mobilization, Therapeutic Activities, Therapeutic Exercises Modalities Cold Pack/Ice Massage,Electric Stimulation,Hot Packs Next Visit Focus/Plan Next Note Type Treatment Note Next Visit Plan Recheck supine over noodle resisted Hep. POC: trial eccentric FF rear facing TB next tx. POC: AROM, shoulder mobility
--- NOTE | 2024-03-17 11:31 | PT.OTN ---
Current Diagnoses Pain in left shoulder (03/17/24) Stiffness of left shoulder, not elsewhere classified (03/17/24) Complete rotator cuff tear or rupture of left shoulder, not specified as traumatic (03/17/24) Aftercare following joint replacement surgery (03/17/24) Physical Therapy Treatment Note PT-OP-A Visit Information Start: 12/23/23 17:46 Freq: Status: Active Protocol: Document 03/17/24 10:50 DCW (Rec: 03/17/24 11:31 DCW [id number]) Out-Patient Physical Therapy Visit Information Visit Information Visit Type Treatment Note Visit Start Time 10:50 Visit Stop Time 11:30 Visit Number 15 (09/14 with PN) Number of HEPATOLOGIST Visits 0 Evaluation Information Evaluation Date 12/23/23 Precautions Precautions 12/16/23: s/p reverse L shld First 3 weeks: ROM Pendulums only Weeks 0-2: Elbow, wrist, finger ROM, no ER past neutral Weeks 2-6: Shoulder PROM, no lifting, no ER past neutral Weeks 6-12 AROM/PROM as tolerated, no lifting more than 3 pounds Months 3-6: Full ROM, progress to unrestricted lifting Months 6-12: Full ROM, Full weight bearing, no restrictions PT-OP-B Current Condition Start: 12/23/23 17:46 Freq: Status: Active Protocol: Document 12/23/23 17:00 DCW (Rec: 12/24/23 09:44 DCW [id number]) Current Condition History of Current Condition Onset Date 12/16/23 Current Complaints Right reverse Total shoulder replacement History of Current Condition Pt is a 78 year old female presenting one week s/p right rTSA following failure of conservative treatment of full -thickness supraspinatus and partial-thickness infraspinatus and subscapularis tears. Pt notes her pain is largely gone following surgery. Has already weaned herself off pain pills , and is taking extra-strength tylenol 3x/day. Has been compliant with post-op sling use, only removing for showers . Admits she has done pendulums a few times, but not as frequently as she should be. Pt has been trying really hard to behave myself and follow directions. PT-OP-C Subjective Start: 12/23/23 17:46 Freq: Status: Active Protocol: Document 03/17/24 10:50 DCW (Rec: 03/17/24 11:31 DCW [id number]) OP-PT Subjective Patient Comments Patient Comments I'm not happy. Reports sometime this week saw a PA at her surgeon's office, had x -rays taken, they feel things look fine. PT-OP-K Range of Motion Start: 12/23/23 17:46 Freq: Status: Active Protocol: Document 02/15/24 10:49 DCW (Rec: 02/15/24 11:03 DCW [id number]) Shoulder Goniometric Range of Motion Shoulder Left Active Testing Position Standing Flexion 56 Abduction 51 External Rotation at 0 degrees Abduction 33 Left Passive Shoulder ROM WFL No Testing Position Supine Flexion 111 Abduction 78 External Rotation at 0 degrees Abduction 24 Right Active Shoulder ROM WFL Yes Testing Position Sitting Flexion 170 Abduction 180 PT-OP-M Strength Start: 12/23/23 17:46 Freq: Status: Active Protocol: Document 02/15/24 10:49 DCW (Rec: 02/15/24 11:03 DCW [id number]) Shoulder Strength Shoulder Manual Muscle Testing Left Flexion 2- Poor- Abduction (C5) 2- Poor- External Rotation 2 Poor PT-OP-Q Treatments Start: 12/23/23 17:46 Freq: Status: Active Protocol: Document 03/17/24 10:50 DCW (Rec: 03/17/24 11:31 DCW [id number]) Cardio Equipment Upper Body Ergometer (UBE) Duration (Minutes) 5 RPM 60 Seat Position 9 Height 3.5 Other Fwd/Bkwd every 30 sec- ed cues no shld elevation recruitment Therapeutic Exercises Supine Exercises Serratus Punch Supine Exercise Name Serratus Punch Over noodle Supine Exercise Name HABD - demo of technique d/t HEP questions Resistance Lv 1 Reps/Minutes x15 Sitting Exercises Pulleys Sitting Exercise Name PROM - Abduction Side bilateral Resistance R assist L Equipment Used mirror front for self feedback postural alignment Standing Exercises Wall Push-ups Standing Exercise Name Wall Push-ups Side bilateral Reps/Minutes x5 Comments hand position Abduction Standing Exercise Name Abduction Side left Resistance 1# Equipment Used front mirror Comments challenged scap stab and complete range Flexion Standing Exercise Name Flexion Side left Resistance 2#->1# Equipment Used front mirror Reps/Minutes 2 reps Comments challenged scap stab and complete range Wall slides Standing Exercise Name wall walking Side left Comments End-range stretch Manual Therapy Treatment Consent Patient gave verbal consent for manual Yes treatment Soft Tissue Mobilization Upper Arm Body Location L Biceps, Deltoid, pec, lat, SA, tricep, Mobilization Type Rolling Intensity/Depth Moderate Body Position seated Comments gentle STMs between AAROM fac mobility Ed use tennis ball in pillowcase back to wall self STMs. L neck Body Location L UT, LS Mobilization Type Myofascial Release,Rolling Intensity/Depth Moderate Body Position seated Comments gentle STMs reduce neck tension PT-OP-R Modalities Start: 01/04/24 10:36 Freq: Status: Active Protocol: Document 01/04/24 09:48 SP (Rec: 01/04/24 10:41 SP [id number]) Hot Pack/Cold Pack Treatment CP Location L shld Patient Position Hooklying Patient Tolerance Good PT-OP-T Assessment and Plan Start: 12/23/23 17:46 Freq: Status: Active Protocol: Document 03/17/24 10:50 DCW (Rec: 03/17/24 11:31 DCW [id number]) Physical Therapy Assessment Impairments Impairments Activity Tolerance,Functional Activities,Functional Mobility ,Pain,ROM,Soft Tissue Mobility ,Strength,Tone Goals One Impairment Pt does not have an appropriate home exercise program Short Term Goal (STG) Pt to be independent and compliant with an appropriate HEP STG Duration 03/17/24 Three Impairment Pt scores a 90.91% disability on the QuickDASH Longterm Goal (LTG) Pt to improve score on the QuickDASH to <50% in order to indicate an increased in ability to perform iALDs independently LTG Duration 04/17/24 Two Impairment Pt unable to perform AROM with right shoulder Emt Paramedic Goal (LTG) Pt to demonstrate 90? flexion and abduction in right shoulder AROM as progressed within post-op protocol in order to return to prior functional levels LTG Duration 04/17/24 Assessment Summary Assessment Pt continues to show general improvement overall since reverse TSA. Experiencing less discomfort with strengthening today. Physical Therapy Plan Frequency and Duration Frequency of Treatment 2x/Week Plan of Care Start Date 02/15/24 Plan of Care End Date 04/17/24 Therapeutic Interventions Therapeutic Interventions Home Exercise Program,Joint Mobilizations,Manual Therapy, Neuromuscular Re-education, Patient/Caregiver Education, Self-Care/Home Management,Soft Tissue Mobilization, Therapeutic Activities, Therapeutic Exercises Modalities Cold Pack/Ice Massage,Electric Stimulation,Hot Packs Next Visit Focus/Plan Next Note Type Treatment Note Next Visit Plan POC: trial eccentric FF rear facing TB next tx. POC: AROM, shoulder mobility
--- NOTE | 2024-03-20 10:31 | PT.OTN ---
Current Diagnoses Pain in left shoulder (03/20/24) Stiffness of left shoulder, not elsewhere classified (03/20/24) Complete rotator cuff tear or rupture of left shoulder, not specified as traumatic (03/20/24) Aftercare following joint replacement surgery (03/20/24) Physical Therapy Treatment Note PT-OP-A Visit Information Start: 12/23/23 17:46 Freq: Status: Active Protocol: Document 03/20/24 09:51 SP (Rec: 03/20/24 11:34 SP [id number]) Out-Patient Physical Therapy Visit Information Visit Information Visit Type Treatment Note Visit Start Time 09:51 Visit Stop Time 10:31 Visit Number 16 (10/15 with PN) Number of HOURLY CAREGIVER Visits 1 Evaluation Information Evaluation Date 12/23/23 Precautions Precautions 12/16/23: s/p reverse L shld First 3 weeks: ROM Pendulums only Weeks 0-2: Elbow, wrist, finger ROM, no ER past neutral Weeks 2-6: Shoulder PROM, no lifting, no ER past neutral Weeks 6-12 AROM/PROM as tolerated, no lifting more than 3 pounds Months 3-6: Full ROM, progress to unrestricted lifting Months 6-12: Full ROM, Full weight bearing, no restrictions PT-OP-B Current Condition Start: 12/23/23 17:46 Freq: Status: Active Protocol: Document 12/23/23 17:00 DCW (Rec: 12/24/23 09:44 DCW [id number]) Current Condition History of Current Condition Onset Date 12/16/23 Current Complaints Right reverse Total shoulder replacement History of Current Condition Pt is a 78 year old female presenting one week s/p right rTSA following failure of conservative treatment of full -thickness supraspinatus and partial-thickness infraspinatus and subscapularis tears. Pt notes her pain is largely gone following surgery. Has already weaned herself off pain pills , and is taking extra-strength tylenol 3x/day. Has been compliant with post-op sling use, only removing for showers . Admits she has done pendulums a few times, but not as frequently as she should be. Pt has been trying really hard to behave myself and follow directions. PT-OP-C Subjective Start: 12/23/23 17:46 Freq: Status: Active Protocol: Document 03/20/24 09:51 SP (Rec: 03/20/24 11:34 SP [id number]) OP-PT Subjective Patient Comments Patient Comments Pt reports using pulleys at home, wish could set up mirror visual as in PT is helpful. Trying to relax during exercises toallow arm move better and not hold as used to . PT-OP-K Range of Motion Start: 12/23/23 17:46 Freq: Status: Active Protocol: Document 02/15/24 10:49 DCW (Rec: 02/15/24 11:03 DCW [id number]) Shoulder Goniometric Range of Motion Shoulder Left Active Testing Position Standing Flexion 56 Abduction 51 External Rotation at 0 degrees Abduction 33 Left Passive Shoulder ROM WFL No Testing Position Supine Flexion 111 Abduction 78 External Rotation at 0 degrees Abduction 24 Right Active Shoulder ROM WFL Yes Testing Position Sitting Flexion 170 Abduction 180 PT-OP-M Strength Start: 12/23/23 17:46 Freq: Status: Active Protocol: Document 02/15/24 10:49 DCW (Rec: 02/15/24 11:03 DCW [id number]) Shoulder Strength Shoulder Manual Muscle Testing Left Flexion 2- Poor- Abduction (C5) 2- Poor- External Rotation 2 Poor PT-OP-Q Treatments Start: 12/23/23 17:46 Freq: Status: Active Protocol: Document 03/20/24 09:51 SP (Rec: 03/20/24 11:34 SP [id number]) Cardio Equipment Upper Body Ergometer (UBE) Duration (Minutes) 5 RPM 60 Seat Position 9 Height 3.5 Other Fwd/Bkwd every 30 sec- ed cues no shld elevation recruitment Therapeutic Exercises Supine Exercises Serratus Punch Supine Exercise Name Serratus Punch Side bilateral Resistance TB #1 Equipment Used over noodle Reps/Minutes 10 reps Over noodle Supine Exercise Name FF 121*, HABD Side bilateral Resistance Lv1 TB Reps/Minutes 10 reps each Comments cued hand/arm positioning, scap post & Inf glide and restraction /c HABD Sidelying Exercises HABD Sidelying Exercise Name added to HEP /c HO Side left Resistance R SL- AROM Reps/Minutes 10 reps Comments cued scap mobility Flexion Sidelying Exercise Name 100*- added HEP /c HO Side left Resistance R SL- AROM Reps/Minutes 4 reps Comments tactile cues scap mobility scapular clocks Sidelying Exercise Name 02/10, 11/5, 10/4 o'clock- protraction/retraction glides Side left Resistance R SL: LUE AAROM/AROM Equipment Used during SL AROM Comments tactile cues end feel range, improved range, scap mobiltiy Abduction Sidelying Exercise Name Shoulder Abduction 112* slight fwd Side left Resistance R SL- AROM Reps/Minutes several reps Comments quivering end feel, tactile cue scap add&UR, Sitting Exercises Pulleys Sitting Exercise Name PROM - FF 118*, Abduction Side bilateral Resistance R assist L Equipment Used mirror front for self feedback postural alignment Reps/Minutes 10 reps each Comments Max tactile & VCs elbow extension /c fac scap dep & UR , no jaw/UT recruit. Manual Therapy Treatment Consent Patient gave verbal consent for manual Yes treatment Soft Tissue Mobilization Upper Arm Body Location L Biceps, pec, lat, SA, tricep Mobilization Type Rolling Intensity/Depth Moderate Body Position R SL Comments gentle STMs between AAROM fac mobility Verbal review self grasp MWM and use tennis ball in pillowcase back to wall self STMs. L neck Body Location L UT, LS Mobilization Type Myofascial Release,Rolling Intensity/Depth Moderate Body Position R SL Comments gentle STMs reduce neck tension Joint Mobilizations L scapulothoracic Joint clock glide positioning Grade II Body Position R LS Comments -PROM sup/inf/adduction - AAROM FF UR, HABD protract/ retraction with slight inf glide -Inf & UR during abduction then added serratus press /c clock 12&6, 5, 12/09- * improved decrease scapular UT recruitment and more rhomboid/ SA/LT engagement. Able progress AROM PT-OP-R Modalities Start: 01/04/24 10:36 Freq: Status: Active Protocol: Document 01/04/24 09:48 SP (Rec: 01/04/24 10:41 SP [id number]) Hot Pack/Cold Pack Treatment CP Location L shld Patient Position Hooklying Patient Tolerance Good PT-OP-T Assessment and Plan Start: 12/23/23 17:46 Freq: Status: Active Protocol: Document 03/20/24 09:51 SP (Rec: 03/20/24 11:34 SP [id number]) Physical Therapy Assessment Goals One Impairment Pt does not have an appropriate home exercise program Short Term Goal (STG) Pt to be independent and compliant with an appropriate HEP STG Duration 03/17/24 Three Impairment Pt scores a 90.91% disability on the QuickDASH Impairment . Nursing Home Goal (LTG) Pt to improve score on the QuickDASH to <50% in order to indicate an increased in ability to perform iALDs independently LTG Duration 04/17/24 Two Impairment Pt unable to perform AROM with right shoulder Impairment . Nursing Home Goal (LTG) Pt to demonstrate 90? flexion and abduction in right shoulder AROM as progressed within post-op protocol in order to return to prior functional levels LTG Duration 04/17/24 Assessment Summary Assessment Pt reports improved scapular ROM after manual, improved self AROM in sidelying, low reps FF due to decreased strength. Pt improved resisted HABD supine over noodle with cues scapular ROM adduction/ depression allowance then able progress in ROM over head and HABD with no pain. Cues for scapular AAROM slow, breath allowed decreased UT recruitment. Physical Therapy Plan Frequency and Duration Frequency of Treatment 2x/Week Plan of Care Start Date 02/15/24 Plan of Care End Date 04/17/24 Therapeutic Interventions Therapeutic Interventions Home Exercise Program,Joint Mobilizations,Manual Therapy, Neuromuscular Re-education, Patient/Caregiver Education, Self-Care/Home Management,Soft Tissue Mobilization, Therapeutic Activities, Therapeutic Exercises Modalities Cold Pack/Ice Massage,Electric Stimulation,Hot Packs Next Visit Focus/Plan Next Note Type Treatment Note Next Visit Plan Recheck sidelying AROM, continue standing ther ex. Trial eccentric FF rear facing TB next tx. POC: AROM, shoulder mobility
--- NOTE | 2024-03-21 10:31 | PT.OTN ---
Current Diagnoses Pain in left shoulder (03/20/24) Stiffness of left shoulder, not elsewhere classified (03/20/24) Complete rotator cuff tear or rupture of left shoulder, not specified as traumatic (03/20/24) Aftercare following joint replacement surgery (03/20/24) Physical Therapy Treatment Note PT-OP-A Visit Information Start: 12/23/23 17:46 Freq: Status: Active Protocol: Document 03/20/24 09:51 SP (Rec: 03/20/24 11:34 SP [id number]) Out-Patient Physical Therapy Visit Information Visit Information Visit Type Treatment Note Visit Start Time 09:51 Visit Stop Time 10:31 Visit Number 16 (10/15 with PN) Number of INSURANCE ACCOUNT REPRESENTATIVE Visits 1 Evaluation Information Evaluation Date 12/23/23 Precautions Precautions 12/16/23: s/p reverse L shld First 3 weeks: ROM Pendulums only Weeks 0-2: Elbow, wrist, finger ROM, no ER past neutral Weeks 2-6: Shoulder PROM, no lifting, no ER past neutral Weeks 6-12 AROM/PROM as tolerated, no lifting more than 3 pounds Months 3-6: Full ROM, progress to unrestricted lifting Months 6-12: Full ROM, Full weight bearing, no restrictions PT-OP-B Current Condition Start: 12/23/23 17:46 Freq: Status: Active Protocol: Document 12/23/23 17:00 DCW (Rec: 12/24/23 09:44 DCW [id number]) Current Condition History of Current Condition Onset Date 12/16/23 Current Complaints Right reverse Total shoulder replacement History of Current Condition Pt is a 78 year old female presenting one week s/p right rTSA following failure of conservative treatment of full -thickness supraspinatus and partial-thickness infraspinatus and subscapularis tears. Pt notes her pain is largely gone following surgery. Has already weaned herself off pain pills , and is taking extra-strength tylenol 3x/day. Has been compliant with post-op sling use, only removing for showers . Admits she has done pendulums a few times, but not as frequently as she should be. Pt has been trying really hard to behave myself and follow directions. PT-OP-C Subjective Start: 12/23/23 17:46 Freq: Status: Active Protocol: Document 03/20/24 09:51 SP (Rec: 03/20/24 11:34 SP [id number]) OP-PT Subjective Patient Comments Patient Comments Pt reports using pulleys at home, wish could set up mirror visual as in PT is helpful. Trying to relax during exercises toallow arm move better and not hold as used to . PT-OP-K Range of Motion Start: 12/23/23 17:46 Freq: Status: Active Protocol: Document 02/15/24 10:49 DCW (Rec: 02/15/24 11:03 DCW [id number]) Shoulder Goniometric Range of Motion Shoulder Left Active Testing Position Standing Flexion 56 Abduction 51 External Rotation at 0 degrees Abduction 33 Left Passive Shoulder ROM WFL No Testing Position Supine Flexion 111 Abduction 78 External Rotation at 0 degrees Abduction 24 Right Active Shoulder ROM WFL Yes Testing Position Sitting Flexion 170 Abduction 180 PT-OP-M Strength Start: 12/23/23 17:46 Freq: Status: Active Protocol: Document 02/15/24 10:49 DCW (Rec: 02/15/24 11:03 DCW [id number]) Shoulder Strength Shoulder Manual Muscle Testing Left Flexion 2- Poor- Abduction (C5) 2- Poor- External Rotation 2 Poor PT-OP-Q Treatments Start: 12/23/23 17:46 Freq: Status: Active Protocol: Document 03/20/24 09:51 SP (Rec: 03/20/24 11:34 SP [id number]) Cardio Equipment Upper Body Ergometer (UBE) Duration (Minutes) 5 RPM 60 Seat Position 9 Height 3.5 Other Fwd/Bkwd every 30 sec- ed cues no shld elevation recruitment Therapeutic Exercises Supine Exercises Serratus Punch Supine Exercise Name Serratus Punch Side bilateral Resistance TB #1 Equipment Used over noodle Reps/Minutes 10 reps Over noodle Supine Exercise Name FF 121*, HABD Side bilateral Resistance Lv1 TB Reps/Minutes 10 reps each Comments cued hand/arm positioning, scap post & Inf glide and restraction /c HABD Sidelying Exercises HABD Sidelying Exercise Name added to HEP /c HO Side left Resistance R SL- AROM Reps/Minutes 10 reps Comments cued scap mobility Flexion Sidelying Exercise Name 100*- added HEP /c HO Side left Resistance R SL- AROM Reps/Minutes 4 reps Comments tactile cues scap mobility scapular clocks Sidelying Exercise Name 02/10, 11/5, 10/4 o'clock- protraction/retraction glides Side left Resistance R SL: LUE AAROM/AROM Equipment Used during SL AROM Comments tactile cues end feel range, improved range, scap mobiltiy Abduction Sidelying Exercise Name Shoulder Abduction 112* slight fwd Side left Resistance R SL- AROM Reps/Minutes several reps Comments quivering end feel, tactile cue scap add&UR, Sitting Exercises Pulleys Sitting Exercise Name PROM - FF 118*, Abduction Side bilateral Resistance R assist L Equipment Used mirror front for self feedback postural alignment Reps/Minutes 10 reps each Comments Max tactile & VCs elbow extension /c fac scap dep & UR , no jaw/UT recruit. Manual Therapy Treatment Consent Patient gave verbal consent for manual Yes treatment Soft Tissue Mobilization Upper Arm Body Location L Biceps, pec, lat, SA, tricep Mobilization Type Rolling Intensity/Depth Moderate Body Position R SL Comments gentle STMs between AAROM fac mobility Verbal review self grasp MWM and use tennis ball in pillowcase back to wall self STMs. L neck Body Location L UT, LS Mobilization Type Myofascial Release,Rolling Intensity/Depth Moderate Body Position R SL Comments gentle STMs reduce neck tension Joint Mobilizations L scapulothoracic Joint clock glide positioning Grade II Body Position R LS Comments -PROM sup/inf/adduction - AAROM FF UR, HABD protract/ retraction with slight inf glide -Inf & UR during abduction then added serratus press /c clock 12&6, 5, 12/09- * improved decrease scapular UT recruitment and more rhomboid/ SA/LT engagement. Able progress AROM PT-OP-R Modalities Start: 01/04/24 10:36 Freq: Status: Active Protocol: Document 01/04/24 09:48 SP (Rec: 01/04/24 10:41 SP [id number]) Hot Pack/Cold Pack Treatment CP Location L shld Patient Position Hooklying Patient Tolerance Good PT-OP-T Assessment and Plan Start: 12/23/23 17:46 Freq: Status: Active Protocol: Document 03/20/24 09:51 SP (Rec: 03/20/24 11:34 SP [id number]) Physical Therapy Assessment Goals One Impairment Pt does not have an appropriate home exercise program Short Term Goal (STG) Pt to be independent and compliant with an appropriate HEP STG Duration 03/17/24 Three Impairment Pt scores a 90.91% disability on the QuickDASH Impairment . Senior Care Goal (LTG) Pt to improve score on the QuickDASH to <50% in order to indicate an increased in ability to perform iALDs independently LTG Duration 04/17/24 Two Impairment Pt unable to perform AROM with right shoulder Impairment . Senior Care Goal (LTG) Pt to demonstrate 90? flexion and abduction in right shoulder AROM as progressed within post-op protocol in order to return to prior functional levels LTG Duration 04/17/24 Assessment Summary Assessment Pt reports improved scapular ROM after manual, improved self AROM in sidelying, low reps FF due to decreased strength. Pt improved resisted HABD supine over noodle with cues scapular ROM adduction/ depression allowance then able progress in ROM over head and HABD with no pain. Cues for scapular AAROM slow, breath allowed decreased UT recruitment. Physical Therapy Plan Frequency and Duration Frequency of Treatment 2x/Week Plan of Care Start Date 02/15/24 Plan of Care End Date 04/17/24 Therapeutic Interventions Therapeutic Interventions Home Exercise Program,Joint Mobilizations,Manual Therapy, Neuromuscular Re-education, Patient/Caregiver Education, Self-Care/Home Management,Soft Tissue Mobilization, Therapeutic Activities, Therapeutic Exercises Modalities Cold Pack/Ice Massage,Electric Stimulation,Hot Packs Next Visit Focus/Plan Next Note Type Treatment Note Next Visit Plan Recheck sidelying AROM, continue standing ther ex. Trial eccentric FF rear facing TB next tx. POC: AROM, shoulder mobility
--- NOTE | 2024-03-24 10:30 | PT.OTN ---
Current Diagnoses Pain in left shoulder (03/24/24) Stiffness of left shoulder, not elsewhere classified (03/24/24) Complete rotator cuff tear or rupture of left shoulder, not specified as traumatic (03/24/24) Aftercare following joint replacement surgery (03/24/24) Physical Therapy Treatment Note PT-OP-A Visit Information Start: 12/23/23 17:46 Freq: Status: Active Protocol: Document 03/24/24 09:50 SP (Rec: 03/24/24 10:37 SP [id number]) Out-Patient Physical Therapy Visit Information Visit Information Visit Type Treatment Note Visit Start Time 09:50 Visit Stop Time 10:30 Visit Number 17 (11/15 with PN) Number of INFORMATION SYSTEMS SPECIALIST Visits 2 Evaluation Information Evaluation Date 12/23/23 Precautions Precautions 12/16/23: s/p reverse L shld First 3 weeks: ROM Pendulums only Weeks 0-2: Elbow, wrist, finger ROM, no ER past neutral Weeks 2-6: Shoulder PROM, no lifting, no ER past neutral Weeks 6-12 AROM/PROM as tolerated, no lifting more than 3 pounds Months 3-6: Full ROM, progress to unrestricted lifting Months 6-12: Full ROM, Full weight bearing, no restrictions PT-OP-B Current Condition Start: 12/23/23 17:46 Freq: Status: Active Protocol: Document 12/23/23 17:00 DCW (Rec: 12/24/23 09:44 DCW [id number]) Current Condition History of Current Condition Onset Date 12/16/23 Current Complaints Right reverse Total shoulder replacement History of Current Condition Pt is a 78 year old female presenting one week s/p right rTSA following failure of conservative treatment of full -thickness supraspinatus and partial-thickness infraspinatus and subscapularis tears. Pt notes her pain is largely gone following surgery. Has already weaned herself off pain pills , and is taking extra-strength tylenol 3x/day. Has been compliant with post-op sling use, only removing for showers . Admits she has done pendulums a few times, but not as frequently as she should be. Pt has been trying really hard to behave myself and follow directions. PT-OP-C Subjective Start: 12/23/23 17:46 Freq: Status: Active Protocol: Document 03/24/24 09:50 SP (Rec: 03/24/24 10:37 SP [id number]) OP-PT Subjective Patient Comments Patient Comments Pt reports getting frustrated not getting range as want. Not ascompliant with HEP, not motiviation with lack of progress. PT-OP-K Range of Motion Start: 12/23/23 17:46 Freq: Status: Active Protocol: Document 02/15/24 10:49 DCW (Rec: 02/15/24 11:03 DCW [id number]) Shoulder Goniometric Range of Motion Shoulder Left Active Testing Position Standing Flexion 56 Abduction 51 External Rotation at 0 degrees Abduction 33 Left Passive Shoulder ROM WFL No Testing Position Supine Flexion 111 Abduction 78 External Rotation at 0 degrees Abduction 24 Right Active Shoulder ROM WFL Yes Testing Position Sitting Flexion 170 Abduction 180 PT-OP-M Strength Start: 12/23/23 17:46 Freq: Status: Active Protocol: Document 02/15/24 10:49 DCW (Rec: 02/15/24 11:03 DCW [id number]) Shoulder Strength Shoulder Manual Muscle Testing Left Flexion 2- Poor- Abduction (C5) 2- Poor- External Rotation 2 Poor PT-OP-Q Treatments Start: 12/23/23 17:46 Freq: Status: Active Protocol: Document 03/24/24 09:50 SP (Rec: 03/24/24 10:37 SP [id number]) Therapeutic Exercises Supine Exercises Serratus Punch Supine Exercise Name Serratus Punch Side bilateral Resistance AROM Equipment Used over noodle Reps/Minutes 10 reps Over noodle Supine Exercise Name FF 121*, HABD, 1/2 (modified scaption) Side bilateral Resistance AROM independent each Equipment Used over noodle Reps/Minutes 10 reps each Comments cued hand/arm positioning, scap post & Inf glide and restraction /c HABD Sidelying Exercises HABD Sidelying Exercise Name reviewed Side left Resistance R SL- AROM Reps/Minutes 10 reps Comments cued scap mobility Flexion Sidelying Exercise Name reviewed Side left Resistance R SL- AROM Reps/Minutes 4 reps Comments tactile cues scap mobility- challenging weakenss tiring Abduction Sidelying Exercise Name Shoulder Abduction Side left Resistance R SL- AROM Reps/Minutes several reps Comments quivering end feel, tactile cue scap add&UR, occ cues protract assist more External Rotation Sidelying Exercise Name Shoulder ER Side left Resistance 1# DB Reps/Minutes x10 reps Comments improved range Standing Exercises IR LUE Standing Exercise Name added to HEP declined HO Resistance RUE helpLUE Equipment Used noodle in hands behind back support Reps/Minutes 5 reps 3-5 sec Comments cued level shld, gentle AAROM L hand toward R hip, breath sink stretch Standing Exercise Name reviewed past/self activity Equipment Used rail support Reps/Minutes 5 breath hold, scap depression Abduction Standing Exercise Name Abduction Side left Resistance RUE assist /c dowel Equipment Used front mirror Comments cued scap glide UR, no UT Flexion Standing Exercise Name Flexion Side left Resistance RUE assisted /c dowel 112* Equipment Used front mirror Reps/Minutes 8 reps Comments cued scap depress glide, relax face Manual Therapy Treatment Consent Patient gave verbal consent for manual Yes treatment Soft Tissue Mobilization Upper Arm Body Location L Biceps, pec, lat, SA, tricep Mobilization Type Rolling Intensity/Depth Moderate Body Position R SL Comments gentle STMs between AAROM fac mobility Verbal review self grasp MWM and use tennis ball in pillowcase back to wall self STMs. L neck Body Location L UT, LS Mobilization Type Myofascial Release,Rolling Intensity/Depth Moderate Body Position R SL Comments gentle STMs reduce neck tension Joint Mobilizations L scapulothoracic Joint clock glide positioning Grade II Body Position R LS Comments MWM ABD Self-Care/Home Management Treatment Education Patient Education Body Mechanics,Home Exercise Program Other Education ed HEP performance. PT-OP-R Modalities Start: 01/04/24 10:36 Freq: Status: Active Protocol: Document 01/04/24 09:48 SP (Rec: 01/04/24 10:41 SP [id number]) Hot Pack/Cold Pack Treatment CP Location L shld Patient Position Hooklying Patient Tolerance Good PT-OP-T Assessment and Plan Start: 12/23/23 17:46 Freq: Status: Active Protocol: Document 03/24/24 09:50 SP (Rec: 03/24/24 10:37 SP [id number]) Physical Therapy Assessment Goals One Impairment Pt does not have an appropriate home exercise program Short Term Goal (STG) Pt to be independent and compliant with an appropriate HEP STG Duration 03/17/24 Three Impairment Pt scores a 90.91% disability on the QuickDASH Impairment . [facility] Goal (LTG) Pt to improve score on the QuickDASH to <50% in order to indicate an increased in ability to perform iALDs independently LTG Duration 04/17/24 Two Impairment Pt unable to perform AROM with right shoulder Impairment . Postpartum Rn Goal (LTG) Pt to demonstrate 90? flexion and abduction in right shoulder AROM as progressed within post-op protocol in order to return to prior functional levels LTG Duration 04/17/24 Assessment Summary Assessment Pt progressed scapular AAROM with protraction mobility end feel tightness ff and ABD. Continue supine over noodle but AROM today without support and improved slow pacing mobility. Initiated use dowel for AAROM FF and ABD standng in front mirror for self alignment corrections post cuing level shld and reduction UT shld elevation compensations. Had good response to initiated L humeral IR behind back support of noodle RLUE assist LUE, no pain and verbal understanding gentle painfree range to allow putting L arm in jacket behind her, no excessive forceful movements. Physical Therapy Plan Frequency and Duration Frequency of Treatment 2x/Week Plan of Care Start Date 02/15/24 Plan of Care End Date 04/17/24 Therapeutic Interventions Therapeutic Interventions Home Exercise Program,Joint Mobilizations,Manual Therapy, Neuromuscular Re-education, Patient/Caregiver Education, Self-Care/Home Management,Soft Tissue Mobilization, Therapeutic Activities, Therapeutic Exercises Modalities Cold Pack/Ice Massage,Electric Stimulation,Hot Packs Next Visit Focus/Plan Next Note Type Treatment Note Next Visit Plan Recheck sidelying AROM, standing IR behind back continue standing ther ex. Trial eccentric FF rear facing TB next tx. POC: AROM, shoulder mobility
--- NOTE | 2024-03-27 10:32 | PT.OTN ---
Current Diagnoses Pain in left shoulder (03/27/24) Stiffness of left shoulder, not elsewhere classified (03/27/24) Complete rotator cuff tear or rupture of left shoulder, not specified as traumatic (03/27/24) Aftercare following joint replacement surgery (03/27/24) Physical Therapy Treatment Note PT-OP-A Visit Information Start: 12/23/23 17:46 Freq: Status: Active Protocol: Document 03/27/24 09:48 DCW (Rec: 03/27/24 10:32 DCW [id number]) Out-Patient Physical Therapy Visit Information Visit Information Visit Type Progress Note Visit Start Time 09:48 Visit Stop Time 10:30 Visit Number 18 Number of MANUFACTURING ENGINEER CHIEF Visits 0 Evaluation Information Evaluation Date 12/23/23 Precautions Precautions 12/16/23: s/p reverse L shld First 3 weeks: ROM Pendulums only Weeks 0-2: Elbow, wrist, finger ROM, no ER past neutral Weeks 2-6: Shoulder PROM, no lifting, no ER past neutral Weeks 6-12 AROM/PROM as tolerated, no lifting more than 3 pounds Months 3-6: Full ROM, progress to unrestricted lifting Months 6-12: Full ROM, Full weight bearing, no restrictions PT-OP-B Current Condition Start: 12/23/23 17:46 Freq: Status: Active Protocol: Document 12/23/23 17:00 DCW (Rec: 12/24/23 09:44 DCW [id number]) Current Condition History of Current Condition Onset Date 12/16/23 Current Complaints Right reverse Total shoulder replacement History of Current Condition Pt is a 78 year old female presenting one week s/p right rTSA following failure of conservative treatment of full -thickness supraspinatus and partial-thickness infraspinatus and subscapularis tears. Pt notes her pain is largely gone following surgery. Has already weaned herself off pain pills , and is taking extra-strength tylenol 3x/day. Has been compliant with post-op sling use, only removing for showers . Admits she has done pendulums a few times, but not as frequently as she should be. Pt has been trying really hard to behave myself and follow directions. PT-OP-C Subjective Start: 12/23/23 17:46 Freq: Status: Active Protocol: Document 03/27/24 09:48 DCW (Rec: 03/27/24 10:32 DCW [id number]) OP-PT Subjective Patient Comments Patient Comments Pt doing well today, I know I need more strength. PT-OP-K Range of Motion Start: 12/23/23 17:46 Freq: Status: Active Protocol: Document 03/27/24 09:48 DCW (Rec: 03/27/24 09:58 DCW [id number]) Shoulder Goniometric Range of Motion Shoulder Left Active Testing Position Standing Flexion 62 Abduction 61 External Rotation at 0 degrees Abduction 44 Left Passive Shoulder ROM WFL No Testing Position Supine Flexion 122 Abduction 102 External Rotation at 0 degrees Abduction 52 Right Active Shoulder ROM WFL Yes Testing Position Standing Flexion 170 Abduction 180 External Rotation at 0 degrees Abduction 45 PT-OP-M Strength Start: 12/23/23 17:46 Freq: Status: Active Protocol: Document 03/27/24 09:48 DCW (Rec: 03/27/24 09:58 DCW [id number]) Shoulder Strength Shoulder Manual Muscle Testing Left Flexion 2- Poor- Abduction (C5) 2- Poor- External Rotation 2 Poor PT-OP-Q Treatments Start: 12/23/23 17:46 Freq: Status: Active Protocol: Document 03/27/24 09:48 DCW (Rec: 03/27/24 10:32 DCW [id number]) Therapeutic Exercises Standing Exercises External Rotation Standing Exercise Name ER Side bilateral Resistance Lv 1 Body Blade Standing Exercise Name Body Blade Side left Resistance Yellow Comments Flexion, Abduction Abduction Standing Exercise Name Abduction Side left Resistance Lv 1 Equipment Used front mirror Comments cued scap glide UR, no UT Flexion Standing Exercise Name Flexion Side left Resistance Lv 1 Equipment Used front mirror Comments cued scap depress glide Other Exercises Resisted UE Ambulation Other Exercise Name Resisted UE side-stepping Resistance Lv 1 loop PT-OP-R Modalities Start: 01/04/24 10:36 Freq: Status: Active Protocol: Document 01/04/24 09:48 SP (Rec: 01/04/24 10:41 SP [id number]) Hot Pack/Cold Pack Treatment CP Location L shld Patient Position Hooklying Patient Tolerance Good PT-OP-T Assessment and Plan Start: 12/23/23 17:46 Freq: Status: Active Protocol: Document 03/27/24 09:48 DCW (Rec: 03/27/24 10:32 DCW [id number]) Physical Therapy Assessment Goals One Impairment Pt does not have an appropriate home exercise program Short Term Goal (STG) Pt to be independent and compliant with an appropriate HEP STG Duration 04/17/24 - Improving Three Impairment Pt scores a 90.91% disability on the QuickDASH Blueprint Maker Goal (LTG) Pt to improve score on the QuickDASH to <50% in order to indicate an increased in ability to perform iALDs independently LTG Duration 04/17/24 Two Impairment Pt unable to perform AROM with right shoulder Retirement Goal (LTG) Pt to demonstrate 90? flexion and abduction in right shoulder AROM as progressed within post-op protocol in order to return to prior functional levels 03/27: 62? flex, 61? abd LTG Duration 04/17/24 Assessment Summary Assessment Progressing to more strengthening activities, per post-op protocol, pt has no lifting restrictions. Focus on strengthening with proper shoulder mechanics. Physical Therapy Plan Frequency and Duration Frequency of Treatment 2x/Week Plan of Care Start Date 02/15/24 Plan of Care End Date 04/17/24 Therapeutic Interventions Therapeutic Interventions Home Exercise Program,Joint Mobilizations,Manual Therapy, Neuromuscular Re-education, Patient/Caregiver Education, Self-Care/Home Management,Soft Tissue Mobilization, Therapeutic Activities, Therapeutic Exercises Modalities Cold Pack/Ice Massage,Electric Stimulation,Hot Packs Next Visit Focus/Plan Next Note Type Treatment Note Next Visit Plan Recheck sidelying AROM, standing IR behind back continue standing ther ex. Trial eccentric FF rear facing TB next tx. POC: AROM, shoulder mobility
--- NOTE | 2024-03-31 10:30 | PT.OTN ---
Current Diagnoses Pain in left shoulder (03/31/24) Stiffness of left shoulder, not elsewhere classified (03/31/24) Complete rotator cuff tear or rupture of left shoulder, not specified as traumatic (03/31/24) Aftercare following joint replacement surgery (03/31/24) Physical Therapy Treatment Note PT-OP-A Visit Information Start: 12/23/23 17:46 Freq: Status: Active Protocol: Document 03/31/24 09:49 SP (Rec: 03/31/24 10:34 SP [id number]) Out-Patient Physical Therapy Visit Information Visit Information Visit Type Treatment Note Visit Start Time 09:49 Visit Stop Time 10:29 Visit Number 19 (04/17 with PN) Number of CONTACT CENTER ENGINEER Visits 1 Evaluation Information Evaluation Date 12/23/23 Precautions Precautions 12/16/23: s/p reverse L shld First 3 weeks: ROM Pendulums only Weeks 0-2: Elbow, wrist, finger ROM, no ER past neutral Weeks 2-6: Shoulder PROM, no lifting, no ER past neutral Weeks 6-12 AROM/PROM as tolerated, no lifting more than 3 pounds Months 3-6: Full ROM, progress to unrestricted lifting Months 6-12: Full ROM, Full weight bearing, no restrictions PT-OP-B Current Condition Start: 12/23/23 17:46 Freq: Status: Active Protocol: Document 12/23/23 17:00 DCW (Rec: 12/24/23 09:44 DCW [id number]) Current Condition History of Current Condition Onset Date 12/16/23 Current Complaints Right reverse Total shoulder replacement History of Current Condition Pt is a 78 year old female presenting one week s/p right rTSA following failure of conservative treatment of full -thickness supraspinatus and partial-thickness infraspinatus and subscapularis tears. Pt notes her pain is largely gone following surgery. Has already weaned herself off pain pills , and is taking extra-strength tylenol 3x/day. Has been compliant with post-op sling use, only removing for showers . Admits she has done pendulums a few times, but not as frequently as she should be. Pt has been trying really hard to behave myself and follow directions. PT-OP-C Subjective Start: 12/23/23 17:46 Freq: Status: Active Protocol: Document 03/31/24 09:49 SP (Rec: 03/31/24 10:34 SP [id number]) OP-PT Subjective Patient Comments Patient Comments Pt reports has tried RUE helping LUE lift FF then LUE itself lower and suprised can lift more itself after. Easier to take coat and put L arm in sleeve so the reaching behind back stretching helping. PT-OP-K Range of Motion Start: 12/23/23 17:46 Freq: Status: Active Protocol: Document 03/27/24 09:48 DCW (Rec: 03/27/24 09:58 DCW [id number]) Shoulder Goniometric Range of Motion Shoulder Left Active Testing Position Standing Flexion 62 Abduction 61 External Rotation at 0 degrees Abduction 44 Left Passive Shoulder ROM WFL No Testing Position Supine Flexion 122 Abduction 102 External Rotation at 0 degrees Abduction 52 Right Active Shoulder ROM WFL Yes Testing Position Standing Flexion 170 Abduction 180 External Rotation at 0 degrees Abduction 45 PT-OP-M Strength Start: 12/23/23 17:46 Freq: Status: Active Protocol: Document 03/27/24 09:48 DCW (Rec: 03/27/24 09:58 DCW [id number]) Shoulder Strength Shoulder Manual Muscle Testing Left Flexion 2- Poor- Abduction (C5) 2- Poor- External Rotation 2 Poor PT-OP-Q Treatments Start: 12/23/23 17:46 Freq: Status: Active Protocol: Document 03/31/24 09:49 SP (Rec: 03/31/24 10:34 SP [id number]) Therapeutic Exercises Sitting Exercises Pulleys Sitting Exercise Name PROM - FF 115*, Abduction 95* little fwd Side bilateral Resistance R assist L Equipment Used mirror front for self feedback postural alignment Reps/Minutes 10 reps each Comments Max tactile & VCs relax jaw, scap depression/UR Standing Exercises bicep curl Standing Exercise Name added to HEP Side bilateral Resistance Tb# 3 anchored under same side foot Reps/Minutes x10 each UE Comments occ cues for scap retraction- good effort & form no pain External Rotation Standing Exercise Name ER Side bilateral Resistance Lv 1 Equipment Used 1. Double peach2. single Light blue (gave HO) Reps/Minutes 10 reps Comments finds can go little further single R itself, good form/ trunk stationary Body Blade Standing Exercise Name Body Blade: flexion, abduction Side left Resistance Yellow Comments Down<>Front, Down<> Side, Punch upward IR LUE Standing Exercise Name reviewed Side left Resistance AAROM Equipment Used dowel Reps/Minutes 5 reps 3-5 sec Comments hand over R sacrum> fingers over R glut Wall Push-ups Standing Exercise Name Wall Push-up Side bilateral Reps/Minutes x6 reps each position Comments Hand position Shld height: Adriana & W Flexion Standing Exercise Name 1. Flexion 2. FF AAROM> eccentric slower (gave HO) Side left Resistance Lv 1 Equipment Used front mirror Reps/Minutes 5 reps each Comments cued scap depress glide PT-OP-R Modalities Start: 01/04/24 10:36 Freq: Status: Active Protocol: Document 01/04/24 09:48 SP (Rec: 01/04/24 10:41 SP [id number]) Hot Pack/Cold Pack Treatment CP Location L shld Patient Position Hooklying Patient Tolerance Good PT-OP-T Assessment and Plan Start: 12/23/23 17:46 Freq: Status: Active Protocol: Document 03/31/24 09:49 SP (Rec: 03/31/24 10:34 SP [id number]) Physical Therapy Assessment Goals One Impairment Pt does not have an appropriate home exercise program Short Term Goal (STG) Pt to be independent and compliant with an appropriate HEP STG Duration 04/17/24 - Improving Three Impairment Pt scores a 90.91% disability on the QuickDASH Impairment . Sales Service Route Manager Goal (LTG) Pt to improve score on the QuickDASH to <50% in order to indicate an increased in ability to perform iALDs independently LTG Duration 04/17/24 Two Impairment Pt unable to perform AROM with right shoulder Impairment . Sales Service Route Manager Goal (LTG) Pt to demonstrate 90? flexion and abduction in right shoulder AROM as progressed within post-op protocol in order to return to prior functional levels 03/27: 62? flex, 61? abd LTG Duration 04/17/24 Assessment Summary Assessment Pt improved scapular depresssion with cuing throughout ther ex support FF. Progressed L bicep strength for lifting items home and LUE ER individual against resistance more active with no trunk compensations. Noted improved FF AROM post AAROM FF and then slowly lower itself. Physical Therapy Plan Frequency and Duration Frequency of Treatment 2x/Week Plan of Care Start Date 02/15/24 Plan of Care End Date 04/17/24 Therapeutic Interventions Therapeutic Interventions Home Exercise Program,Joint Mobilizations,Manual Therapy, Neuromuscular Re-education, Patient/Caregiver Education, Self-Care/Home Management,Soft Tissue Mobilization, Therapeutic Activities, Therapeutic Exercises Modalities Cold Pack/Ice Massage,Electric Stimulation,Hot Packs Next Visit Focus/Plan Next Note Type Treatment Note Next Visit Plan REcheck HEP and body positioning. Trial eccentric FF rear facing TB next tx. POC: AROM, shoulder mobility
--- NOTE | 2024-04-03 10:28 | PT.OTN ---
Current Diagnoses Pain in left shoulder (04/03/24) Stiffness of left shoulder, not elsewhere classified (04/03/24) Complete rotator cuff tear or rupture of left shoulder, not specified as traumatic (04/03/24) Aftercare following joint replacement surgery (04/03/24) Physical Therapy Treatment Note PT-OP-A Visit Information Start: 12/23/23 17:46 Freq: Status: Active Protocol: Document 04/03/24 09:48 SP (Rec: 04/03/24 10:41 SP [id number]) Out-Patient Physical Therapy Visit Information Visit Information Visit Type Treatment Note Visit Start Time 09:48 Visit Stop Time 10:28 Visit Number 20 (05/15 with PN) Number of MEDIA PRODUCTION SUPPORT MANAGER Visits 2 Evaluation Information Evaluation Date 12/23/23 Precautions Precautions 12/16/23: s/p reverse L shld First 3 weeks: ROM Pendulums only Weeks 0-2: Elbow, wrist, finger ROM, no ER past neutral Weeks 2-6: Shoulder PROM, no lifting, no ER past neutral Weeks 6-12 AROM/PROM as tolerated, no lifting more than 3 pounds Months 3-6: Full ROM, progress to unrestricted lifting Months 6-12: Full ROM, Full weight bearing, no restrictions PT-OP-B Current Condition Start: 12/23/23 17:46 Freq: Status: Active Protocol: Document 12/23/23 17:00 DCW (Rec: 12/24/23 09:44 DCW [id number]) Current Condition History of Current Condition Onset Date 12/16/23 Current Complaints Right reverse Total shoulder replacement History of Current Condition Pt is a 78 year old female presenting one week s/p right rTSA following failure of conservative treatment of full -thickness supraspinatus and partial-thickness infraspinatus and subscapularis tears. Pt notes her pain is largely gone following surgery. Has already weaned herself off pain pills , and is taking extra-strength tylenol 3x/day. Has been compliant with post-op sling use, only removing for showers . Admits she has done pendulums a few times, but not as frequently as she should be. Pt has been trying really hard to behave myself and follow directions. PT-OP-C Subjective Start: 12/23/23 17:46 Freq: Status: Active Protocol: Document 04/03/24 09:48 SP (Rec: 04/03/24 10:41 SP [id number]) OP-PT Subjective Patient Comments Patient Comments Pt reports doing well with exercises, likes the bands. Over the weekend and tripped and landed on BUE out front with no problem other than soreness. PT-OP-K Range of Motion Start: 12/23/23 17:46 Freq: Status: Active Protocol: Document 03/27/24 09:48 DCW (Rec: 03/27/24 09:58 DCW [id number]) Shoulder Goniometric Range of Motion Shoulder Left Active Testing Position Standing Flexion 62 Abduction 61 External Rotation at 0 degrees Abduction 44 Left Passive Shoulder ROM WFL No Testing Position Supine Flexion 122 Abduction 102 External Rotation at 0 degrees Abduction 52 Right Active Shoulder ROM WFL Yes Testing Position Standing Flexion 170 Abduction 180 External Rotation at 0 degrees Abduction 45 PT-OP-M Strength Start: 12/23/23 17:46 Freq: Status: Active Protocol: Document 03/27/24 09:48 DCW (Rec: 03/27/24 09:58 DCW [id number]) Shoulder Strength Shoulder Manual Muscle Testing Left Flexion 2- Poor- Abduction (C5) 2- Poor- External Rotation 2 Poor PT-OP-Q Treatments Start: 12/23/23 17:46 Freq: Status: Active Protocol: Document 04/03/24 09:48 SP (Rec: 04/03/24 10:41 SP [id number]) Cardio Equipment Upper Body Ergometer (UBE) Duration (Minutes) 5 RPM 60 Seat Position 9 Height 3.5 Other Fwd/Bkwd every 30 sec- ed cues no shld elevation recruitment Therapeutic Exercises Standing Exercises L UE straight at side stretch Standing Exercise Name self performance: UT, Bicep, Brachioradialis, deloid Side left Equipment Used front mirror level shld Reps/Minutes 10 SH x5 Comments self postural awareness AAROM Standing Exercise Name FF, ABD, Scaption Side left Equipment Used dowel front mirror Reps/Minutes 10 reps each Comments cued elbow straight, Improved reduction UT compensation /c reps External Rotation Standing Exercise Name ER Side left Resistance Lv 1 Equipment Used 1. Double peach 2. single Light blue best performance Reps/Minutes 10 reps Comments improved range with single ER IR LUE Standing Exercise Name 1. concentric IR, eccentric ER 2. AROM IR behind back Side left Resistance ROM Equipment Used 1. TB #1 2. AROM across back towel elevate approx L3 Reps/Minutes 1. 5 reps 3 sec stretch 2. 10 SH x3 reps Comments improved AROM across opposite back and towel support elevate up back Flexion Standing Exercise Name flexion Side left Resistance AROM approx 90deg 3 reps then AAROM and eccentric lowering Equipment Used front mirror Reps/Minutes 5 reps AROM then eccentric slower Comments cued scap depress glide Wall slides Standing Exercise Name Wall walking: FF, Side left Resistance AAROM Reps/Minutes 2 reps x10 SH Comments End-range stretch, improved form post AAROM dowel Other Exercises Resisted UE Ambulation Other Exercise Name Resisted UE side-stepping Resistance Lv 1 loop at hands Equipment Used facing hallway railing Reps/Minutes 20 ft 1 lap Comments cued UE/LE sequencing, tactile cue L LT fac /c LUE add motion & RUE ABD PT-OP-R Modalities Start: 01/04/24 10:36 Freq: Status: Active Protocol: Document 01/04/24 09:48 SP (Rec: 01/04/24 10:41 SP [id number]) Hot Pack/Cold Pack Treatment CP Location L shld Patient Position Hooklying Patient Tolerance Good PT-OP-T Assessment and Plan Start: 12/23/23 17:46 Freq: Status: Active Protocol: Document 04/03/24 09:48 SP (Rec: 04/03/24 10:41 SP [id number]) Physical Therapy Assessment Goals One Impairment Pt does not have an appropriate home exercise program Short Term Goal (STG) Pt to be independent and compliant with an appropriate HEP STG Duration 04/17/24 - Improving Three Impairment Pt scores a 90.91% disability on the QuickDASH Impairment . Box Hinge And Lock Attacher Goal (LTG) Pt to improve score on the QuickDASH to <50% in order to indicate an increased in ability to perform iALDs independently LTG Duration 04/17/24 Two Impairment Pt unable to perform AROM with right shoulder Impairment . Mcfp Goal (LTG) Pt to demonstrate 90? flexion and abduction in right shoulder AROM as progressed within post-op protocol in order to return to prior functional levels 03/27: 62? flex, 61? abd LTG Duration 04/17/24 Assessment Summary Assessment Pt improved FF AROM without resistance reps can then instructed AAROM further and AROM eccentric return LUE. Improved scapular setting and elbow straight (tricep fac) improved with verbal and tactile cuing during most of ther ex for retraining reduction UT compensations. Good feedback response to found self stretch UT/distal bicep/Brachioradialis level shld in mirror (L shld lowering). Physical Therapy Plan Frequency and Duration Frequency of Treatment 2x/Week Plan of Care Start Date 02/15/24 Plan of Care End Date 04/17/24 Therapeutic Interventions Therapeutic Interventions Home Exercise Program,Joint Mobilizations,Manual Therapy, Neuromuscular Re-education, Patient/Caregiver Education, Self-Care/Home Management,Soft Tissue Mobilization, Therapeutic Activities, Therapeutic Exercises Modalities Cold Pack/Ice Massage,Electric Stimulation,Hot Packs Next Visit Focus/Plan Next Note Type Treatment Note Next Visit Plan recheck ROM standing HEP, reduction UT compensations. Trial eccentric FF rear facing TB next tx. POC: AROM, shoulder mobility
--- NOTE | 2024-04-07 10:31 | PT.OTN ---
Current Diagnoses Pain in left shoulder (04/07/24) Stiffness of left shoulder, not elsewhere classified (04/07/24) Complete rotator cuff tear or rupture of left shoulder, not specified as traumatic (04/07/24) Aftercare following joint replacement surgery (04/07/24) Physical Therapy Treatment Note PT-OP-A Visit Information Start: 12/23/23 17:46 Freq: Status: Active Protocol: Document 04/07/24 09:50 DCW (Rec: 04/07/24 10:31 DCW [id number]) Out-Patient Physical Therapy Visit Information Visit Information Visit Type Treatment Note Visit Start Time 09:50 Visit Stop Time 10:30 Visit Number 21 (06/15 with PN) Number of STUDY COORDINATOR Visits 0 Evaluation Information Evaluation Date 12/23/23 Precautions Precautions 12/16/23: s/p reverse L shld First 3 weeks: ROM Pendulums only Weeks 0-2: Elbow, wrist, finger ROM, no ER past neutral Weeks 2-6: Shoulder PROM, no lifting, no ER past neutral Weeks 6-12 AROM/PROM as tolerated, no lifting more than 3 pounds Months 3-6: Full ROM, progress to unrestricted lifting Months 6-12: Full ROM, Full weight bearing, no restrictions PT-OP-B Current Condition Start: 12/23/23 17:46 Freq: Status: Active Protocol: Document 12/23/23 17:00 DCW (Rec: 12/24/23 09:44 DCW [id number]) Current Condition History of Current Condition Onset Date 12/16/23 Current Complaints Right reverse Total shoulder replacement History of Current Condition Pt is a 78 year old female presenting one week s/p right rTSA following failure of conservative treatment of full -thickness supraspinatus and partial-thickness infraspinatus and subscapularis tears. Pt notes her pain is largely gone following surgery. Has already weaned herself off pain pills , and is taking extra-strength tylenol 3x/day. Has been compliant with post-op sling use, only removing for showers . Admits she has done pendulums a few times, but not as frequently as she should be. Pt has been trying really hard to behave myself and follow directions. PT-OP-C Subjective Start: 12/23/23 17:46 Freq: Status: Active Protocol: Document 04/07/24 09:50 DCW (Rec: 04/07/24 10:31 DCW [id number]) OP-PT Subjective Patient Comments Patient Comments It's slow. Reports she had a follow-up with her surgeon's PA PT-OP-K Range of Motion Start: 12/23/23 17:46 Freq: Status: Active Protocol: Document 03/27/24 09:48 DCW (Rec: 03/27/24 09:58 DCW [id number]) Shoulder Goniometric Range of Motion Shoulder Left Active Testing Position Standing Flexion 62 Abduction 61 External Rotation at 0 degrees Abduction 44 Left Passive Shoulder ROM WFL No Testing Position Supine Flexion 122 Abduction 102 External Rotation at 0 degrees Abduction 52 Right Active Shoulder ROM WFL Yes Testing Position Standing Flexion 170 Abduction 180 External Rotation at 0 degrees Abduction 45 PT-OP-M Strength Start: 12/23/23 17:46 Freq: Status: Active Protocol: Document 03/27/24 09:48 DCW (Rec: 03/27/24 09:58 DCW [id number]) Shoulder Strength Shoulder Manual Muscle Testing Left Flexion 2- Poor- Abduction (C5) 2- Poor- External Rotation 2 Poor PT-OP-Q Treatments Start: 12/23/23 17:46 Freq: Status: Active Protocol: Document 04/07/24 09:50 DCW (Rec: 04/07/24 10:31 DCW [id number]) Cardio Equipment Upper Body Ergometer (UBE) Duration (Minutes) 4 RPM 60 Seat Position 8 Height 3.5 Other Fwd/Bkwd every 30 sec- ed cues no shld elevation recruitment Gym Equipment Cable Column (Body Solid) Lat Pull Down Resistance 15# Therapeutic Exercises Standing Exercises bicep curl Standing Exercise Name Biceps curl/reverse curl Side bilateral Resistance 2# Body Blade Standing Exercise Name Body Blade: flexion, abduction Side bilateral Resistance Yellow Comments Down<>Front, Down<> Side, Punch upward Wall Push-ups Standing Exercise Name Wall Push-up Side bilateral Reps/Minutes x10 reps each position Comments Hand position Shld height: Adriana & W Abduction Standing Exercise Name Abduction Side bilateral Resistance 1# Equipment Used front mirror Reps/Minutes x15 Comments cued scap glide UR, no UT Flexion Standing Exercise Name flexion Side bilateral Resistance 1# Equipment Used front mirror Reps/Minutes x15 Comments cued scap depress glide PT-OP-R Modalities Start: 01/04/24 10:36 Freq: Status: Active Protocol: Document 01/04/24 09:48 SP (Rec: 01/04/24 10:41 SP [id number]) Hot Pack/Cold Pack Treatment CP Location L shld Patient Position Hooklying Patient Tolerance Good PT-OP-T Assessment and Plan Start: 12/23/23 17:46 Freq: Status: Active Protocol: Document 04/07/24 09:50 DCW (Rec: 04/07/24 10:31 DCW [id number]) Physical Therapy Assessment Impairments Impairments Activity Tolerance,Functional Activities,Functional Mobility ,Pain,ROM,Soft Tissue Mobility ,Strength,Tone Goals One Impairment Pt does not have an appropriate home exercise program Short Term Goal (STG) Pt to be independent and compliant with an appropriate HEP STG Duration 04/17/24 - Improving Three Impairment Pt scores a 90.91% disability on the QuickDASH Impairment . Uke Driver Goal (LTG) Pt to improve score on the QuickDASH to <50% in order to indicate an increased in ability to perform iALDs independently LTG Duration 04/17/24 Two Impairment Pt unable to perform AROM with right shoulder Impairment . Nursing Home Goal (LTG) Pt to demonstrate 90? flexion and abduction in right shoulder AROM as progressed within post-op protocol in order to return to prior functional levels 03/27: 62? flex, 61? abd LTG Duration 04/17/24 Assessment Summary Assessment Pt slowly improving with AROM and strength, continues to make good progress with PROM, wall slides greatly improving. Physical Therapy Plan Frequency and Duration Frequency of Treatment 2x/Week Plan of Care Start Date 02/15/24 Plan of Care End Date 04/17/24 Therapeutic Interventions Therapeutic Interventions Home Exercise Program,Joint Mobilizations,Manual Therapy, Neuromuscular Re-education, Patient/Caregiver Education, Self-Care/Home Management,Soft Tissue Mobilization, Therapeutic Activities, Therapeutic Exercises Modalities Cold Pack/Ice Massage,Electric Stimulation,Hot Packs Next Visit Focus/Plan Next Note Type Treatment Note Next Visit Plan recheck ROM standing HEP, reduction UT compensations. Trial eccentric FF rear facing TB next tx. POC: AROM, shoulder mobility
--- NOTE | 2024-04-10 12:15 | PT.OTN ---
Current Diagnoses Pain in left shoulder (04/10/24) Stiffness of left shoulder, not elsewhere classified (04/10/24) Complete rotator cuff tear or rupture of left shoulder, not specified as traumatic (04/10/24) Aftercare following joint replacement surgery (04/10/24) Physical Therapy Treatment Note PT-OP-A Visit Information Start: 12/23/23 17:46 Freq: Status: Active Protocol: Document 04/10/24 11:35 DCW (Rec: 04/10/24 12:14 DCW [id number]) Out-Patient Physical Therapy Visit Information Visit Information Visit Type Progress Note Visit Start Time 11:35 Visit Stop Time 12:15 Visit Number 22 Number of PRIMARY HEALTH CARE NURSE Visits 0 Evaluation Information Evaluation Date 12/23/23 Precautions Precautions 12/16/23: s/p reverse L shld First 3 weeks: ROM Pendulums only Weeks 0-2: Elbow, wrist, finger ROM, no ER past neutral Weeks 2-6: Shoulder PROM, no lifting, no ER past neutral Weeks 6-12 AROM/PROM as tolerated, no lifting more than 3 pounds Months 3-6: Full ROM, progress to unrestricted lifting Months 6-12: Full ROM, Full weight bearing, no restrictions PT-OP-B Current Condition Start: 12/23/23 17:46 Freq: Status: Active Protocol: Document 12/23/23 17:00 DCW (Rec: 12/24/23 09:44 DCW [id number]) Current Condition History of Current Condition Onset Date 12/16/23 Current Complaints Right reverse Total shoulder replacement History of Current Condition Pt is a 78 year old female presenting one week s/p right rTSA following failure of conservative treatment of full -thickness supraspinatus and partial-thickness infraspinatus and subscapularis tears. Pt notes her pain is largely gone following surgery. Has already weaned herself off pain pills , and is taking extra-strength tylenol 3x/day. Has been compliant with post-op sling use, only removing for showers . Admits she has done pendulums a few times, but not as frequently as she should be. Pt has been trying really hard to behave myself and follow directions. PT-OP-C Subjective Start: 12/23/23 17:46 Freq: Status: Active Protocol: Document 04/10/24 11:35 DCW (Rec: 04/10/24 12:14 DCW [id number]) OP-PT Subjective Patient Comments Patient Comments Was able to reach up onto her cabinet today and grab a coffee mug using her left arm. Patient Questionnaires Quick Dash- Upper Extremity Quick Dash UE Score 43.18% Quick Dash UE Impairment 40 to 59% Impaired (Score 40- 59) PT-OP-K Range of Motion Start: 12/23/23 17:46 Freq: Status: Active Protocol: Document 03/27/24 09:48 DCW (Rec: 03/27/24 09:58 DCW [id number]) Shoulder Goniometric Range of Motion Shoulder Left Active Testing Position Standing Flexion 62 Abduction 61 External Rotation at 0 degrees Abduction 44 Left Passive Shoulder ROM WFL No Testing Position Supine Flexion 122 Abduction 102 External Rotation at 0 degrees Abduction 52 Right Active Shoulder ROM WFL Yes Testing Position Standing Flexion 170 Abduction 180 External Rotation at 0 degrees Abduction 45 PT-OP-M Strength Start: 12/23/23 17:46 Freq: Status: Active Protocol: Document 03/27/24 09:48 DCW (Rec: 03/27/24 09:58 DCW [id number]) Shoulder Strength Shoulder Manual Muscle Testing Left Flexion 2- Poor- Abduction (C5) 2- Poor- External Rotation 2 Poor PT-OP-Q Treatments Start: 12/23/23 17:46 Freq: Status: Active Protocol: Document 04/10/24 11:35 DCW (Rec: 04/10/24 12:14 DCW [id number]) Cardio Equipment Upper Body Ergometer (UBE) Duration (Minutes) 4 RPM 60 Seat Position 8 Height 3.5 Other Fwd/Bkwd every 30 sec- ed cues no shld elevation recruitment Gym Equipment Cable Column (Body Solid) Lat Pull Down Resistance 15# Therapeutic Exercises Standing Exercises Chest Press Standing Exercise Name Overhead chest press /c PVC Side bilateral Resistance 4# Body Blade Standing Exercise Name Body Blade: flexion, abduction Side bilateral Resistance Yellow Comments Down<>Front, Down<> Side, Punch upward Wall Push-ups Standing Exercise Name Wall Push-up Side bilateral Reps/Minutes x10 reps each position Comments Hand position Shld height: Adriana & W Flexion Standing Exercise Name Flexion /c PVC Side bilateral Resistance 4# Comments Mirror PT-OP-R Modalities Start: 01/04/24 10:36 Freq: Status: Active Protocol: Document 01/04/24 09:48 SP (Rec: 01/04/24 10:41 SP [id number]) Hot Pack/Cold Pack Treatment CP Location L shld Patient Position Hooklying Patient Tolerance Good PT-OP-T Assessment and Plan Start: 12/23/23 17:46 Freq: Status: Active Protocol: Document 04/10/24 11:35 DCW (Rec: 04/10/24 12:14 DCW [id number]) Physical Therapy Assessment Goals One Impairment Pt does not have an appropriate home exercise program Short Term Goal (STG) Pt to be independent and compliant with an appropriate HEP STG Duration Met Three Impairment Pt scores a 90.91% disability on the QuickDASH Short Term Goal (STG) Pt to improve score on the QuickDASH to <50% in order to indicate an increased in ability to perform iALDs independently 04/10/24: 43.18% [facility] Goal (LTG) Pt to improve score on the QuickDASH to <25% in order to indicate an increased in ability to perform iALDs independently LTG Duration 06/08/24 Two Impairment Pt unable to perform AROM with right shoulder Impairment . Coordinator Integrated Marketing Goal (LTG) Pt to demonstrate 90? flexion and abduction in right shoulder AROM as progressed within post-op protocol in order to return to prior functional levels 03/27: 68? flex, 65? abd LTG Duration 06/08/24 Assessment Summary Assessment Pt making slow progress with AROM, left shoulder flexion limited to 68?, abduction to 65?. Recently began to work more on strength, per post-op protocol, pt continuing to be limited to fairly light 1-2# weights. Should continue to benefit from skilled therapeutic intervention focusing on post-op strengthening and ROM in an effort to return pt to prior level of functional independence. Physical Therapy Plan Frequency and Duration Frequency of Treatment 2x/Week Plan of Care Start Date 04/10/24 Plan of Care End Date 06/08/24 Therapeutic Interventions Therapeutic Interventions Home Exercise Program,Joint Mobilizations,Manual Therapy, Neuromuscular Re-education, Patient/Caregiver Education, Self-Care/Home Management,Soft Tissue Mobilization, Therapeutic Activities, Therapeutic Exercises Modalities Cold Pack/Ice Massage,Electric Stimulation,Hot Packs Next Visit Focus/Plan Next Note Type Treatment Note Next Visit Plan recheck ROM standing HEP, reduction UT compensations. Trial eccentric FF rear facing TB next tx. POC: AROM, shoulder mobility
--- NOTE | 2024-04-10 12:15 | PT.OPPOC ---
Physical, Occupational & Speech Therapy At [facility] Current Diagnoses Pain in left shoulder (04/10/24) Stiffness of left shoulder, not elsewhere classified (04/10/24) Complete rotator cuff tear or rupture of left shoulder, not specified as traumatic (04/10/24) Aftercare following joint replacement surgery (04/10/24) Visit Care Team Role Provider Type Natalie Garcia MD Family Provider Physician Primary Care Provider Specialty: Family Practice Address: [address] [place] [address] [place], [address] Email: [email or web address] Nils Lopez MD Attending Provider Physician Referring Provider Specialty: Orthopedics Orthopedic Surgery Address: [address] [place] [address], [address] Email: [email or web address] Plan Of Care PT-OP-B Current Condition Start: 12/23/23 17:46 Freq: Status: Active Protocol: Document 12/23/23 17:00 DCW (Rec: 12/24/23 09:44 DCW [id number]) Current Condition History of Current Condition Onset Date 12/16/23 Current Complaints Right reverse Total shoulder replacement History of Current Condition Pt is a 78 year old female presenting one week s/p right rTSA following failure of conservative treatment of full -thickness supraspinatus and partial-thickness infraspinatus and subscapularis tears. Pt notes her pain is largely gone following surgery. Has already weaned herself off pain pills , and is taking extra-strength tylenol 3x/day. Has been compliant with post-op sling use, only removing for showers . Admits she has done pendulums a few times, but not as frequently as she should be. Pt has been trying really hard to behave myself and follow directions. PT-OP-T Assessment and Plan Start: 12/23/23 17:46 Freq: Status: Active Protocol: Document 04/10/24 11:35 DCW (Rec: 04/10/24 12:14 DCW [id number]) Physical Therapy Assessment Goals One Impairment Pt does not have an appropriate home exercise program Short Term Goal (STG) Pt to be independent and compliant with an appropriate HEP STG Duration Met Three Impairment Pt scores a 90.91% disability on the QuickDASH Short Term Goal (STG) Pt to improve score on the QuickDASH to <50% in order to indicate an increased in ability to perform iALDs independently 04/10/24: 43.18% Usp Goal (LTG) Pt to improve score on the QuickDASH to <25% in order to indicate an increased in ability to perform iALDs independently LTG Duration 06/08/24 Two Impairment Pt unable to perform AROM with right shoulder Impairment . Usp Goal (LTG) Pt to demonstrate 90? flexion and abduction in right shoulder AROM as progressed within post-op protocol in order to return to prior functional levels 03/27: 68? flex, 65? abd LTG Duration 06/08/24 Assessment Summary Assessment Pt making slow progress with AROM, left shoulder flexion limited to 68?, abduction to 65?. Recently began to work more on strength, per post-op protocol, pt continuing to be limited to fairly light 1-2# weights. Should continue to benefit from skilled therapeutic intervention focusing on post-op strengthening and ROM in an effort to return pt to prior level of functional independence. Physical Therapy Plan Frequency and Duration Frequency of Treatment 2x/Week Plan of Care Start Date 04/10/24 Plan of Care End Date 06/08/24 Therapeutic Interventions Therapeutic Interventions Home Exercise Program,Joint Mobilizations,Manual Therapy, Neuromuscular Re-education, Patient/Caregiver Education, Self-Care/Home Management,Soft Tissue Mobilization, Therapeutic Activities, Therapeutic Exercises Modalities Cold Pack/Ice Massage,Electric Stimulation,Hot Packs Next Visit Focus/Plan Next Note Type Treatment Note Next Visit Plan recheck ROM standing HEP, reduction UT compensations. Trial eccentric FF rear facing TB next tx. POC: AROM, shoulder mobility Plan of Care Dates Plan of Care Start Date 04/10/24 Plan of Care End Date 06/08/24 Electronically Signed by: Vince Amin, PT 04/10/24 0963 If you are in agreement with this Plan of Care, please return a signed and dated copy. I have reviewed this Plan of Care and certify that the skilled therapy services above are required to meet the patient?s needs. Physician Signature Date Printed Name and Credentials Clinical Instructor Signature Printed Name and Credentials
--- NOTE | 2024-04-28 12:18 | PT.OTN ---
Current Diagnoses Pain in left shoulder (04/28/24) Stiffness of left shoulder, not elsewhere classified (04/28/24) Complete rotator cuff tear or rupture of left shoulder, not specified as traumatic (04/28/24) Aftercare following joint replacement surgery (04/28/24) Physical Therapy Treatment Note PT-OP-A Visit Information Start: 12/23/23 17:46 Freq: Status: Active Protocol: Document 04/28/24 11:30 DCW (Rec: 04/28/24 12:17 DCW [id number]) Out-Patient Physical Therapy Visit Information Visit Information Visit Type Treatment Note Visit Start Time 11:30 Visit Stop Time 12:15 Visit Number 23 Number of PARTS DELIVERY DRIVER Visits 0 Evaluation Information Evaluation Date 12/23/23 Precautions Precautions 12/16/23: s/p reverse L shld First 3 weeks: ROM Pendulums only Weeks 0-2: Elbow, wrist, finger ROM, no ER past neutral Weeks 2-6: Shoulder PROM, no lifting, no ER past neutral Weeks 6-12 AROM/PROM as tolerated, no lifting more than 3 pounds Months 3-6: Full ROM, progress to unrestricted lifting Months 6-12: Full ROM, Full weight bearing, no restrictions PT-OP-B Current Condition Start: 12/23/23 17:46 Freq: Status: Active Protocol: Document 12/23/23 17:00 DCW (Rec: 12/24/23 09:44 DCW [id number]) Current Condition History of Current Condition Onset Date 12/16/23 Current Complaints Right reverse Total shoulder replacement History of Current Condition Pt is a 78 year old female presenting one week s/p right rTSA following failure of conservative treatment of full -thickness supraspinatus and partial-thickness infraspinatus and subscapularis tears. Pt notes her pain is largely gone following surgery. Has already weaned herself off pain pills , and is taking extra-strength tylenol 3x/day. Has been compliant with post-op sling use, only removing for showers . Admits she has done pendulums a few times, but not as frequently as she should be. Pt has been trying really hard to behave myself and follow directions. PT-OP-C Subjective Start: 12/23/23 17:46 Freq: Status: Active Protocol: Document 04/28/24 11:30 DCW (Rec: 04/28/24 12:17 DCW [id number]) OP-PT Subjective Patient Comments Patient Comments I'm doing well. I'm more optimistic than I have, I'm doing things that I haven't been able to do. Reports she is able to reach up and put things in her cabinets, and can almost get my hair into a shower cap. Everything just feels much better, much stronger. PT-OP-K Range of Motion Start: 12/23/23 17:46 Freq: Status: Active Protocol: Document 03/27/24 09:48 DCW (Rec: 03/27/24 09:58 DCW [id number]) Shoulder Goniometric Range of Motion Shoulder Left Active Testing Position Standing Flexion 62 Abduction 61 External Rotation at 0 degrees Abduction 44 Left Passive Shoulder ROM WFL No Testing Position Supine Flexion 122 Abduction 102 External Rotation at 0 degrees Abduction 52 Right Active Shoulder ROM WFL Yes Testing Position Standing Flexion 170 Abduction 180 External Rotation at 0 degrees Abduction 45 PT-OP-M Strength Start: 12/23/23 17:46 Freq: Status: Active Protocol: Document 03/27/24 09:48 DCW (Rec: 03/27/24 09:58 DCW [id number]) Shoulder Strength Shoulder Manual Muscle Testing Left Flexion 2- Poor- Abduction (C5) 2- Poor- External Rotation 2 Poor PT-OP-Q Treatments Start: 12/23/23 17:46 Freq: Status: Active Protocol: Document 04/28/24 11:30 DCW (Rec: 04/28/24 12:17 DCW [id number]) Cardio Equipment Upper Body Ergometer (UBE) Duration (Minutes) 4 RPM 60 Seat Position 8 Height 4 Other Fwd/Bkwd every 30 sec- ed cues no shld elevation recruitment Gym Equipment Cable Column (Body Solid) Lat Pull Down Resistance 20# Therapeutic Exercises Standing Exercises Chest Press Standing Exercise Name Overhead chest press /c PVC Side bilateral Resistance 5# bicep curl Standing Exercise Name Biceps curl/reverse curl Side bilateral Resistance 3# Body Blade Standing Exercise Name Body Blade: flexion, abduction Side bilateral Resistance Yellow Wall Push-ups Standing Exercise Name Wall Push-up Side bilateral Reps/Minutes x10 reps each position Comments Hand position Shld height: Adriana & W Manual Therapy Treatment Consent Patient gave verbal consent for manual Yes treatment Soft Tissue Mobilization Upper Arm Body Location L Biceps, pec, lat, SA, tricep Mobilization Type Rolling Intensity/Depth Moderate Body Position Hooklying Comments gentle STMs between AAROM fac mobility Verbal review self grasp MWM and use tennis ball in pillowcase back to wall self STMs. L neck Body Location L UT, LS Mobilization Type Myofascial Release,Rolling Intensity/Depth Moderate Body Position Hooklying Comments gentle STMs reduce neck tension Joint Mobilizations L scapulothoracic Joint Scapulothoracic Direction Lateral, Inferior Grade III PT-OP-R Modalities Start: 01/04/24 10:36 Freq: Status: Active Protocol: Document 01/04/24 09:48 SP (Rec: 01/04/24 10:41 SP [id number]) Hot Pack/Cold Pack Treatment CP Location L shld Patient Position Hooklying Patient Tolerance Good PT-OP-T Assessment and Plan Start: 12/23/23 17:46 Freq: Status: Active Protocol: Document 04/28/24 11:30 DCW (Rec: 04/28/24 12:17 DCW [id number]) Physical Therapy Assessment Impairments Impairments Activity Tolerance,Functional Activities,Functional Mobility ,Pain,ROM,Soft Tissue Mobility ,Strength,Tone Goals One Impairment Pt does not have an appropriate home exercise program Short Term Goal (STG) Pt to be independent and compliant with an appropriate HEP STG Duration Met Three Impairment Pt scores a 90.91% disability on the QuickDASH Short Term Goal (STG) Pt to improve score on the QuickDASH to <50% in order to indicate an increased in ability to perform iALDs independently 04/10/24: 43.18% Fpc Goal (LTG) Pt to improve score on the QuickDASH to <25% in order to indicate an increased in ability to perform iALDs independently LTG Duration 06/08/24 Two Impairment Pt unable to perform AROM with right shoulder Digital Strategist Goal (LTG) Pt to demonstrate 90? flexion and abduction in right shoulder AROM as progressed within post-op protocol in order to return to prior functional levels 03/27: 68? flex, 65? abd LTG Duration 06/08/24 Assessment Summary Assessment Pt showing sudden improvement in pain, much larger pain-free ROM, although still limited. Continue to focus on shoulder mobility and strengthening. Physical Therapy Plan Frequency and Duration Frequency of Treatment 2x/Week Plan of Care Start Date 04/10/24 Plan of Care End Date 06/08/24 Therapeutic Interventions Therapeutic Interventions Home Exercise Program,Joint Mobilizations,Manual Therapy, Neuromuscular Re-education, Patient/Caregiver Education, Self-Care/Home Management,Soft Tissue Mobilization, Therapeutic Activities, Therapeutic Exercises Modalities Cold Pack/Ice Massage,Electric Stimulation,Hot Packs Next Visit Focus/Plan Next Note Type Treatment Note Next Visit Plan recheck ROM standing HEP, reduction UT compensations. Trial eccentric FF rear facing TB next tx. POC: AROM, shoulder mobility
--- NOTE | 2024-05-01 10:30 | PT.OTN ---
Current Diagnoses Pain in left shoulder (05/01/24) Stiffness of left shoulder, not elsewhere classified (05/01/24) Complete rotator cuff tear or rupture of left shoulder, not specified as traumatic (05/01/24) Aftercare following joint replacement surgery (05/01/24) Physical Therapy Treatment Note PT-OP-A Visit Information Start: 12/23/23 17:46 Freq: Status: Active Protocol: Document 05/01/24 09:49 SP (Rec: 05/01/24 10:39 SP [id number]) Out-Patient Physical Therapy Visit Information Visit Information Visit Type Treatment Note Visit Start Time 09:52 Visit Stop Time 10:30 Visit Number 24 Number of NIGHT MONITOR Visits 1 Evaluation Information Evaluation Date 12/23/23 Precautions Precautions 12/16/23: s/p reverse L shld Months 3-6: Full ROM, progress to unrestricted lifting Months 6-12: Full ROM, Full weight bearing, no restrictions PT-OP-B Current Condition Start: 12/23/23 17:46 Freq: Status: Active Protocol: Document 12/23/23 17:00 DCW (Rec: 12/24/23 09:44 DCW [id number]) Current Condition History of Current Condition Onset Date 12/16/23 Current Complaints Right reverse Total shoulder replacement History of Current Condition Pt is a 78 year old female presenting one week s/p right rTSA following failure of conservative treatment of full -thickness supraspinatus and partial-thickness infraspinatus and subscapularis tears. Pt notes her pain is largely gone following surgery. Has already weaned herself off pain pills , and is taking extra-strength tylenol 3x/day. Has been compliant with post-op sling use, only removing for showers . Admits she has done pendulums a few times, but not as frequently as she should be. Pt has been trying really hard to behave myself and follow directions. PT-OP-C Subjective Start: 12/23/23 17:46 Freq: Status: Active Protocol: Document 05/01/24 09:49 SP (Rec: 05/01/24 10:39 SP [id number]) OP-PT Subjective Patient Comments Patient Comments Pt reports seeing some improvement, can reach some things couldn't reach before and now more aware of R shld limitations. She can put her hat on her head BUEs. PT-OP-K Range of Motion Start: 10/17/24 17:46 Freq: Status: Active Protocol: Document 03/27/24 09:48 DCW (Rec: 03/27/24 09:58 DCW [id number]) Shoulder Goniometric Range of Motion Shoulder Left Active Testing Position Standing Flexion 62 Abduction 61 External Rotation at 0 degrees Abduction 44 Left Passive Shoulder ROM WFL No Testing Position Supine Flexion 122 Abduction 102 External Rotation at 0 degrees Abduction 52 Right Active Shoulder ROM WFL Yes Testing Position Standing Flexion 170 Abduction 180 External Rotation at 0 degrees Abduction 45 PT-OP-M Strength Start: 12/23/23 17:46 Freq: Status: Active Protocol: Document 03/27/24 09:48 DCW (Rec: 03/27/24 09:58 DCW [id number]) Shoulder Strength Shoulder Manual Muscle Testing Left Flexion 2- Poor- Abduction (C5) 2- Poor- External Rotation 2 Poor PT-OP-Q Treatments Start: 12/23/23 17:46 Freq: Status: Active Protocol: Document 05/01/24 09:49 SP (Rec: 05/01/24 10:39 SP [id number]) Cardio Equipment Upper Body Ergometer (UBE) Duration (Minutes) 4 RPM 60 Seat Position 8 Height 4 Other Fwd/Bkwd every 30 sec- ed cues no shld elevation recruitment Gym Equipment Cable Column (Body Solid) Rows Details cued equal UE use (pt commented use R>L) Resistance 20# Reps/Time 10 reps Lat Pull Down Details cued squeeze shld blades together and downward con > eccentric Resistance 20# Reps/Time 10 reps over and under hand Therapeutic Exercises Sitting Exercises neck stretching Sitting Exercise Name Reviewed: UT, LS, Scalene Side left Equipment Used R little gentle over pressure /c RUE if needed Reps/Minutes 3 breaths each Comments good feedback stretch, cues gentle stretch Standing Exercises Suitcase carry Standing Exercise Name improve level shld Side right Equipment Used 5# DB Reps/Minutes 30 ft 2 laps Comments improved level shld and noted L scalene & pec minor stretch Chest Press Standing Exercise Name Overhead chest press /c PVC Side bilateral Resistance 5#> AROM glide wand up wall Equipment Used facing wall Reps/Minutes 6 reps before R shld discomfort Comments heavy push into wall, L shld quivering, cued less UT more LT L UE straight at side stretch Standing Exercise Name L SB trunk, R side stretch Side left Equipment Used front mirror level shld Reps/Minutes 10 reps Comments Improved level shld AAROM Standing Exercise Name Wall slide: FF, ABD, Scaption Side left Equipment Used wall slide/finger walk end feel Reps/Minutes 3 reps each, 3 breath end feel Comments cued relax L shld down end feel, decrease UT recruitment bicep curl Standing Exercise Name Biceps curl (supinated)/ reverse curl (pronated) Side bilateral Resistance 3# DB Equipment Used front mirror Reps/Minutes 8 each R, 10 left Comments discomfort ant deltoid R last 2 reps Body Blade Standing Exercise Name Body Blade: flexion, abduction Side bilateral Resistance Yellow blade, trialed hammer home carryover Equipment Used front mirror Comments cued Wall Push-ups Standing Exercise Name 1. Wall Push-up: Adriana & W 2 . //bar Side bilateral Equipment Used close and open chain Reps/Minutes x10 reps each position Comments cued decreased UT PT-OP-R Modalities Start: 01/04/24 10:36 Freq: Status: Active Protocol: Document 01/04/24 09:48 SP (Rec: 01/04/24 10:41 SP [id number]) Hot Pack/Cold Pack Treatment CP Location L shld Patient Position Hooklying Patient Tolerance Good PT-OP-T Assessment and Plan Start: 12/23/23 17:46 Freq: Status: Active Protocol: Document 05/01/24 09:49 SP (Rec: 05/01/24 10:39 SP [id number]) Physical Therapy Assessment Goals One Impairment Pt does not have an appropriate home exercise program Short Term Goal (STG) Pt to be independent and compliant with an appropriate HEP STG Duration Met Three Impairment Pt scores a 90.91% disability on the QuickDASH Impairment . Short Term Goal (STG) Pt to improve score on the QuickDASH to <50% in order to indicate an increased in ability to perform iALDs independently 04/10/24: 43.18% Grape Pruner Goal (LTG) Pt to improve score on the QuickDASH to <25% in order to indicate an increased in ability to perform iALDs independently LTG Duration 06/08/24 Two Impairment Pt unable to perform AROM with right shoulder Impairment . Nursing Home Goal (LTG) Pt to demonstrate 90? flexion and abduction in right shoulder AROM as progressed within post-op protocol in order to return to prior functional levels 03/27: 68? flex, 65? abd LTG Duration 06/08/24 Assessment Summary Assessment Cues throughout tx for level shld and decrease L>R UT recruitment, use of mirror for self feedback corrections. Challenged with 5# wt chest press over head, modified wand glide up wall, 8 reps before tiring and R shld discomfort reported. Able to progress slight incline pushup on //bar , tiring with improved scap stab. REviewed L neck stretching for carryover home decreased UT tension and initiated in PT L trunk stretch and R suitcase carry for shld and ribcage trunk midline level. Physical Therapy Plan Frequency and Duration Frequency of Treatment 2x/Week Plan of Care Start Date 04/10/24 Plan of Care End Date 06/08/24 Therapeutic Interventions Therapeutic Interventions Home Exercise Program,Joint Mobilizations,Manual Therapy, Neuromuscular Re-education, Patient/Caregiver Education, Self-Care/Home Management,Soft Tissue Mobilization, Therapeutic Activities, Therapeutic Exercises Modalities Cold Pack/Ice Massage,Electric Stimulation,Hot Packs Next Visit Focus/Plan Next Note Type Treatment Note Next Visit Plan Continue standing HEP, cues and use mirror reduction UT compensations. Next: Trial eccentric FF rear facing TB. POC: AROM, shoulder mobility
--- NOTE | 2024-05-12 08:13 | PT.OTN ---
Current Diagnoses Pain in left shoulder (05/12/24) Stiffness of left shoulder, not elsewhere classified (05/12/24) Complete rotator cuff tear or rupture of left shoulder, not specified as traumatic (05/12/24) Aftercare following joint replacement surgery (05/12/24) Physical Therapy Treatment Note PT-OP-A Visit Information Start: 12/23/23 17:46 Freq: Status: Active Protocol: Document 05/12/24 07:31 SP (Rec: 05/12/24 08:18 SP [id number]) Out-Patient Physical Therapy Visit Information Visit Information Visit Type Treatment Note Visit Start Time 07:33 Visit Stop Time 08:13 Visit Number 25 Number of LABEL CODER Visits 2 Evaluation Information Evaluation Date 12/23/23 Precautions Precautions 12/16/23: s/p reverse L shld Months 3-6: Full ROM, progress to unrestricted lifting Months 6-12: Full ROM, Full weight bearing, no restrictions PT-OP-B Current Condition Start: 12/23/23 17:46 Freq: Status: Active Protocol: Document 12/23/23 17:00 DCW (Rec: 12/24/23 09:44 DCW [id number]) Current Condition History of Current Condition Onset Date 12/16/23 Current Complaints Right reverse Total shoulder replacement History of Current Condition Pt is a 78 year old female presenting one week s/p right rTSA following failure of conservative treatment of full -thickness supraspinatus and partial-thickness infraspinatus and subscapularis tears. Pt notes her pain is largely gone following surgery. Has already weaned herself off pain pills , and is taking extra-strength tylenol 3x/day. Has been compliant with post-op sling use, only removing for showers . Admits she has done pendulums a few times, but not as frequently as she should be. Pt has been trying really hard to behave myself and follow directions. PT-OP-C Subjective Start: 12/23/23 17:46 Freq: Status: Active Protocol: Document 05/12/24 07:31 SP (Rec: 05/12/24 08:18 SP [id number]) OP-PT Subjective Patient Comments Patient Comments Pt reports is pleased can reach up to wash her hair better, demonstrates reaching out side abd little greater than 90deg. PT-OP-K Range of Motion Start: 12/23/23 17:46 Freq: Status: Active Protocol: Document 03/27/24 09:48 DCW (Rec: 03/27/24 09:58 DCW [id number]) Shoulder Goniometric Range of Motion Shoulder Left Active Testing Position Standing Flexion 62 Abduction 61 External Rotation at 0 degrees Abduction 44 Left Passive Shoulder ROM WFL No Testing Position Supine Flexion 122 Abduction 102 External Rotation at 0 degrees Abduction 52 Right Active Shoulder ROM WFL Yes Testing Position Standing Flexion 170 Abduction 180 External Rotation at 0 degrees Abduction 45 PT-OP-M Strength Start: 12/23/23 17:46 Freq: Status: Active Protocol: Document 03/27/24 09:48 DCW (Rec: 03/27/24 09:58 DCW [id number]) Shoulder Strength Shoulder Manual Muscle Testing Left Flexion 2- Poor- Abduction (C5) 2- Poor- External Rotation 2 Poor PT-OP-Q Treatments Start: 12/23/23 17:46 Freq: Status: Active Protocol: Document 05/12/24 07:31 SP (Rec: 05/12/24 08:18 SP [id number]) Cardio Equipment Upper Body Ergometer (UBE) Duration (Minutes) 4 RPM 60 Seat Position 8 Height 4 Other Fwd/Bkwd every 30 sec- ed cues no shld elevation recruitment Gym Equipment Cable Column (Body Solid) Rows Details cued equal UE use (pt commented use R>L) Resistance 20# Reps/Time 15 reps Lat Pull Down Details cued squeeze shld blades together and downward con > eccentric Resistance 20# Reps/Time 15 reps each over and under hand Therapeutic Exercises Sitting Exercises TB Eccentric FF & ABD Sitting Exercise Name added to HEP: Pull Down: Shld Ext/Ecc FF, Adduction/Ecc ABD Side left Resistance Tb #2 Reps/Minutes 2x10 reps each Comments cued slow eccentric OH for AAROM against Ecc resistance Standing Exercises Wall Push-ups Standing Exercise Name 1. Wall Push-up: Adriana & W 2 . //bar Side bilateral Equipment Used close and open chain Reps/Minutes x10 reps each position Comments cued decreased UT Wall slides Standing Exercise Name Ys up wall Side bilateral Reps/Minutes 5 reps Comments cued slight discomfort anterior R bicep/Ant Deltoid PT-OP-R Modalities Start: 01/04/24 10:36 Freq: Status: Active Protocol: Document 01/04/24 09:48 SP (Rec: 01/04/24 10:41 SP [id number]) Hot Pack/Cold Pack Treatment CP Location L shld Patient Position Hooklying Patient Tolerance Good PT-OP-T Assessment and Plan Start: 12/23/23 17:46 Freq: Status: Active Protocol: Document 05/12/24 07:31 SP (Rec: 05/12/24 08:18 SP [id number]) Physical Therapy Assessment Goals One Impairment Pt does not have an appropriate home exercise program Short Term Goal (STG) Pt to be independent and compliant with an appropriate HEP STG Duration Met Three Impairment Pt scores a 90.91% disability on the QuickDASH Impairment . Short Term Goal (STG) Pt to improve score on the QuickDASH to <50% in order to indicate an increased in ability to perform iALDs independently 04/10/24: 43.18% Shaper And Presser Goal (LTG) Pt to improve score on the QuickDASH to <25% in order to indicate an increased in ability to perform iALDs independently LTG Duration 06/08/24 Two Impairment Pt unable to perform AROM with right shoulder Impairment . Detention Goal (LTG) Pt to demonstrate 90? flexion and abduction in right shoulder AROM as progressed within post-op protocol in order to return to prior functional levels 03/27: 68? flex, 65? abd 05/12/24: LTG Duration 06/08/24 Assessment Summary Assessment Pt improved AAROM over head with resisted eccentric flexion and ABD with good response stretch. Improved range over head wall slides Y with reports good gentle effort up to 5 reps before anterior R shld irritation. Provided HO. Physical Therapy Plan Frequency and Duration Frequency of Treatment 2x/Week Plan of Care Start Date 04/10/24 Plan of Care End Date 06/08/24 Therapeutic Interventions Therapeutic Interventions Home Exercise Program,Joint Mobilizations,Manual Therapy, Neuromuscular Re-education, Patient/Caregiver Education, Self-Care/Home Management,Soft Tissue Mobilization, Therapeutic Activities, Therapeutic Exercises Modalities Cold Pack/Ice Massage,Electric Stimulation,Hot Packs Next Visit Focus/Plan Next Note Type Treatment Note Next Visit Plan Update POC in 3 visits, check added moreappts 1x/wk. Continue standing HEP, cues and use mirror reduction UT compensations. Next: Trial eccentric FF rear facing TB. POC: AROM, shoulder mobility
--- NOTE | 2024-05-18 09:45 | PT.OTN ---
Current Diagnoses Pain in left shoulder (05/18/24) Stiffness of left shoulder, not elsewhere classified (05/18/24) Complete rotator cuff tear or rupture of left shoulder, not specified as traumatic (05/18/24) Aftercare following joint replacement surgery (05/18/24) Physical Therapy Treatment Note PT-OP-A Visit Information Start: 12/23/23 17:46 Freq: Status: Active Protocol: Document 05/18/24 09:02 SP (Rec: 05/18/24 09:50 SP [id number]) Out-Patient Physical Therapy Visit Information Visit Information Visit Type Treatment Note Visit Start Time 09:02 Visit Stop Time 09:45 Visit Number 26 (07/15 with POC) Number of HEEL WHEELER Visits 3 Evaluation Information Evaluation Date 12/23/23 Precautions Precautions 12/16/23: s/p reverse L shld Months 3-6: Full ROM, progress to unrestricted lifting Months 6-12: Full ROM, Full weight bearing, no restrictions PT-OP-B Current Condition Start: 12/23/23 17:46 Freq: Status: Active Protocol: Document 12/23/23 17:00 DCW (Rec: 12/24/23 09:44 DCW [id number]) Current Condition History of Current Condition Onset Date 12/16/23 Current Complaints Right reverse Total shoulder replacement History of Current Condition Pt is a 78 year old female presenting one week s/p right rTSA following failure of conservative treatment of full -thickness supraspinatus and partial-thickness infraspinatus and subscapularis tears. Pt notes her pain is largely gone following surgery. Has already weaned herself off pain pills , and is taking extra-strength tylenol 3x/day. Has been compliant with post-op sling use, only removing for showers . Admits she has done pendulums a few times, but not as frequently as she should be. Pt has been trying really hard to behave myself and follow directions. PT-OP-C Subjective Start: 12/23/23 17:46 Freq: Status: Active Protocol: Document 05/18/24 09:02 SP (Rec: 05/18/24 09:50 SP [id number]) OP-PT Subjective Patient Comments Patient Comments Pt reports has question about recently TB seated ex. PT-OP-K Range of Motion Start: 12/23/23 17:46 Freq: Status: Active Protocol: Document 03/27/24 09:48 DCW (Rec: 03/27/24 09:58 DCW [id number]) Shoulder Goniometric Range of Motion Shoulder Left Active Testing Position Standing Flexion 62 Abduction 61 External Rotation at 0 degrees Abduction 44 Left Passive Shoulder ROM WFL No Testing Position Supine Flexion 122 Abduction 102 External Rotation at 0 degrees Abduction 52 Right Active Shoulder ROM WFL Yes Testing Position Standing Flexion 170 Abduction 180 External Rotation at 0 degrees Abduction 45 PT-OP-M Strength Start: 12/23/23 17:46 Freq: Status: Active Protocol: Document 03/27/24 09:48 DCW (Rec: 03/27/24 09:58 DCW [id number]) Shoulder Strength Shoulder Manual Muscle Testing Left Flexion 2- Poor- Abduction (C5) 2- Poor- External Rotation 2 Poor PT-OP-Q Treatments Start: 12/23/23 17:46 Freq: Status: Active Protocol: Document 05/18/24 09:02 SP (Rec: 05/18/24 09:50 SP [id number]) Cardio Equipment Upper Body Ergometer (UBE) Duration (Minutes) 6 RPM 60 Seat Position 8 Height 4 Other Fwd/Bkwd every 30 sec- ed cues no shld elevation recruitment Therapeutic Exercises Supine Exercises Over noodle Supine Exercise Name FF, HABD, pec stretch, W with ABD/ER Side bilateral Resistance AROM independent each Equipment Used over 1/2 foam roller Reps/Minutes 10 reps each Comments cued for good form, good stretch response abd/ER Sitting Exercises TB Eccentric FF & ABD Sitting Exercise Name reviewed Pull Down: Shld Ext/ Ecc FF, Adduction/Ecc ABD Side left Resistance Tb #2 teal anchored just above head height Equipment Used pic taken with phone Reps/Minutes 2x10 reps each Comments cued slow eccentric OH for AAROM against Ecc resistance Standing Exercises Overhead Press Standing Exercise Name added to HEP on written HO /c phone pic Side bilateral Resistance 5>3>2# leg wt on dowel Equipment Used facing wall, glide then trial Reps/Minutes 5 reps Chest Press Standing Exercise Name Overhead chest press /c PVC Side bilateral Resistance 5#> AROM> 2 # glide wand up wall Equipment Used open area, facing mirror for Reps/Minutes 2 reps x2 before R shld discomfort Comments Very challenging, alot UT compensation Body Blade Standing Exercise Name Body Blade: flexion, abduction , press downs- added to HEP /c written HO/pic Side bilateral Resistance Yellow blade & hammer home carryover Equipment Used front mirror used Reps/Minutes 30 sec each Comments shld level PT-OP-R Modalities Start: 01/04/24 10:36 Freq: Status: Active Protocol: Document 01/04/24 09:48 SP (Rec: 01/04/24 10:41 SP [id number]) Hot Pack/Cold Pack Treatment CP Location L shld Patient Position Hooklying Patient Tolerance Good PT-OP-T Assessment and Plan Start: 12/23/23 17:46 Freq: Status: Active Protocol: Document 05/18/24 09:02 SP (Rec: 05/18/24 09:50 SP [id number]) Physical Therapy Assessment Goals One Impairment Pt does not have an appropriate home exercise program Short Term Goal (STG) Pt to be independent and compliant with an appropriate HEP STG Duration Met Three Impairment Pt scores a 90.91% disability on the QuickDASH Impairment . Short Term Goal (STG) Pt to improve score on the QuickDASH to <50% in order to indicate an increased in ability to perform iALDs independently 04/10/24: 43.18% Nursing Home Goal (LTG) Pt to improve score on the QuickDASH to <25% in order to indicate an increased in ability to perform iALDs independently LTG Duration 06/08/24 Two Impairment Pt unable to perform AROM with right shoulder Impairment . Lapping Machine Set Up Operator Goal (LTG) Pt to demonstrate 90? flexion and abduction in right shoulder AROM as progressed within post-op protocol in order to return to prior functional levels 03/27: 68? flex, 65? abd 05/12/24: LTG Duration 06/08/24 Assessment Summary Assessment Pt improved progression reaching over head with light resistance and dowel minimal reps but able increase sets. Continued instruction eccentric TB for assisted AROM abd and FF under tension to support reaching into cupboards and washing her hair . Physical Therapy Plan Frequency and Duration Frequency of Treatment 2x/Week Plan of Care Start Date 04/10/24 Plan of Care End Date 06/08/24 Therapeutic Interventions Therapeutic Interventions Home Exercise Program,Joint Mobilizations,Manual Therapy, Neuromuscular Re-education, Patient/Caregiver Education, Self-Care/Home Management,Soft Tissue Mobilization, Therapeutic Activities, Therapeutic Exercises Modalities Cold Pack/Ice Massage,Electric Stimulation,Hot Packs Next Visit Focus/Plan Next Note Type Treatment Note Next Visit Plan Update POC in 2 visits, check added more appts 1x/wk. Continue standing HEP, cues and use mirror reduction UT compensations. Next: Trial eccentric FF rear facing TB. POC: AROM, shoulder mobility
--- NOTE | 2024-05-31 10:30 | PT.OTN ---
Current Diagnoses Pain in left shoulder (05/31/24) Stiffness of left shoulder, not elsewhere classified (05/31/24) Complete rotator cuff tear or rupture of left shoulder, not specified as traumatic (05/31/24) Aftercare following joint replacement surgery (05/31/24) Physical Therapy Treatment Note PT-OP-A Visit Information Start: 12/23/23 17:46 Freq: Status: Active Protocol: Document 05/31/24 09:47 DCW (Rec: 05/31/24 10:30 DCW [id number]) Out-Patient Physical Therapy Visit Information Visit Information Visit Type Treatment Note Visit Start Time 09:47 Visit Stop Time 10:30 Visit Number 27 (08/15 with POC) 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 Evaluation Information Evaluation Date 12/23/23 Precautions Precautions 12/16/23: s/p reverse L shld Months 3-6: Full ROM, progress to unrestricted lifting Months 6-12: Full ROM, Full weight bearing, no restrictions PT-OP-B Current Condition Start: 12/23/23 17:46 Freq: Status: Active Protocol: Document 12/23/23 17:00 DCW (Rec: 12/24/23 09:44 DCW [id number]) Current Condition History of Current Condition Onset Date 12/16/23 Current Complaints Right reverse Total shoulder replacement History of Current Condition Pt is a 78 year old female presenting one week s/p right rTSA following failure of conservative treatment of full -thickness supraspinatus and partial-thickness infraspinatus and subscapularis tears. Pt notes her pain is largely gone following surgery. Has already weaned herself off pain pills , and is taking extra-strength tylenol 3x/day. Has been compliant with post-op sling use, only removing for showers . Admits she has done pendulums a few times, but not as frequently as she should be. Pt has been trying really hard to behave myself and follow directions. PT-OP-C Subjective Start: 12/23/23 17:46 Freq: Status: Active Protocol: Document 05/31/24 09:47 DCW (Rec: 05/31/24 10:30 DCW [id number]) OP-PT Subjective Patient Comments Patient Comments A little at a time, just a little at a time. 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 Just returning from vacation, I really haven 't been good about my exercises for the last ten days. PT-OP-K Range of Motion Start: 12/23/23 17:46 Freq: Status: Active Protocol: Document 03/27/24 09:48 DCW (Rec: 03/27/24 09:58 DCW [id number]) Shoulder Goniometric Range of Motion Shoulder Left Active Testing Position Standing Flexion 62 Abduction 61 External Rotation at 0 degrees Abduction 44 Left Passive Shoulder ROM WFL No Testing Position Supine Flexion 122 Abduction 102 External Rotation at 0 degrees Abduction 52 Right Active Shoulder ROM WFL Yes Testing Position Standing Flexion 170 Abduction 180 External Rotation at 0 degrees Abduction 45 PT-OP-M Strength Start: 12/23/23 17:46 Freq: Status: Active Protocol: Document 03/27/24 09:48 DCW (Rec: 03/27/24 09:58 DCW [id number]) Shoulder Strength Shoulder Manual Muscle Testing Left Flexion 2- Poor- Abduction (C5) 2- Poor- External Rotation 2 Poor PT-OP-Q Treatments Start: 12/23/23 17:46 Freq: Status: Active Protocol: Document 05/31/24 09:47 DCW (Rec: 05/31/24 10:30 DCW [id number]) Cardio Equipment Upper Body Ergometer (UBE) Duration (Minutes) 6 RPM 60 Seat Position 9 Height 4 Other Fwd/Bkwd every 30 sec Gym Equipment Therapeutic Ball Wall Ball Exercise Details Roll ball up wall with both arms, end-range stretch Ball Size/Color Blue - 45cm Body Position Standing Therapeutic Exercises Supine Exercises Serratus Punch Supine Exercise Name Serratus Punch Side bilateral Resistance 2# Reps/Minutes 10 reps Flexion Supine Exercise Name Flexion /c PVC Side left Resistance 2# Sidelying Exercises Abduction Sidelying Exercise Name Shoulder Abduction Side left Resistance 3# Reps/Minutes several reps Standing Exercises Chest Press Standing Exercise Name Overhead chest press Side bilateral Resistance 3#->1# Equipment Used Mirror Comments Very challenging, alot [place] compensation Abduction Standing Exercise Name Abduction Side bilateral Resistance 3# Comments Mirror Flexion Standing Exercise Name Flexion Side bilateral Resistance 3# Comments Mirror PT-OP-R Modalities Start: 01/04/24 10:36 Freq: Status: Active Protocol: Document 01/04/24 09:48 SP (Rec: 01/04/24 10:41 SP [id number]) Hot Pack/Cold Pack Treatment CP Location L shld Patient Position Hooklying Patient Tolerance Good PT-OP-T Assessment and Plan Start: 12/23/23 17:46 Freq: Status: Active Protocol: Document 05/31/24 09:47 DCW (Rec: 05/31/24 10:30 DCW [id number]) Physical Therapy Assessment Goals One Impairment Pt does not have an appropriate home exercise program Short Term Goal (STG) Pt to be independent and compliant with an appropriate HEP STG Duration Met Three Impairment Pt scores a 90.91% disability on the QuickDASH Short Term Goal (STG) Pt to improve score on the QuickDASH to <50% in order to indicate an increased in ability to perform iALDs independently 04/10/24: 43.18% Senior Commissary Agent Goal (LTG) Pt to improve score on the QuickDASH to <25% in order to indicate an increased in ability to perform iALDs independently LTG Duration 06/08/24 Two Impairment Pt unable to perform AROM with right shoulder Fci Goal (LTG) Pt to demonstrate 90? flexion and abduction in right shoulder AROM as progressed within post-op protocol in order to return to prior functional levels 03/27: 68? flex, 65? abd 05/12/24: LTG Duration 06/08/24 Physical Therapy Plan Frequency and Duration Frequency of Treatment 2x/Week Plan of Care Start Date 04/10/24 Plan of Care End Date 06/08/24 Therapeutic Interventions Therapeutic Interventions Home Exercise Program,Joint Mobilizations,Manual Therapy, Neuromuscular Re-education, Patient/Caregiver Education, Self-Care/Home Management,Soft Tissue Mobilization, Therapeutic Activities, Therapeutic Exercises Modalities Cold Pack/Ice Massage,Electric Stimulation,Hot Packs Next Visit Focus/Plan Next Note Type Progress Note Next Visit Plan Update POC next visits, check added more appts 1x/wk. Continue standing HEP, cues and use mirror reduction [place] compensations. Next: Trial eccentric FF rear facing TB. POC: AROM, shoulder mobility
--- NOTE | 2024-06-05 10:32 | PT.OTN ---
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 Evaluation Information Evaluation Date 12/23/23 Precautions Precautions 12/16/23: s/p reverse L shld Months 3-6: Full ROM, progress to unrestricted lifting Months 6-12: Full ROM, Full weight bearing, no restrictions PT-OP-B Current Condition Start: 12/23/23 17:46 Freq: Status: Active Protocol: Document 12/23/23 17:00 DCW (Rec: 12/24/23 09:44 DCW [id number]) Current Condition History of Current Condition Onset Date 12/16/23 Current Complaints Right reverse Total shoulder replacement History of Current Condition Pt is a 78 year old female presenting one week s/p right rTSA following failure of conservative treatment of full -thickness supraspinatus and partial-thickness infraspinatus and subscapularis tears. Pt notes her pain is largely gone following surgery. Has already weaned herself off pain pills , and is taking extra-strength tylenol 3x/day. Has been compliant with post-op sling use, only removing for showers . Admits she has done pendulums a few times, but not as frequently as she should be. Pt has been trying really hard to behave myself and follow directions. PT-OP-C Subjective Start: 12/23/23 17:46 Freq: Status: Active Protocol: Document 06/05/24 09:46 DCW (Rec: 06/05/24 10:32 DCW [id number]) OP-PT Subjective Patient Comments Patient Comments Pt notes that she was really sore following her last visit, couldn't really do much for two days. Unsure what specifically was the cause, just thinks she overdid her exercises. PT-OP-K Range of Motion Start: 12/23/23 17:46 Freq: Status: Active Protocol: Document 06/05/24 09:45 DCW (Rec: 06/05/24 09:53 DCW [id number]) Shoulder Goniometric Range of Motion Shoulder Left Active Flexion 107 Abduction 92 External Rotation at 0 degrees Abduction 43 Left Passive Shoulder ROM WFL No Testing Position Supine Flexion 135 Abduction 145 External Rotation at 0 degrees Abduction 53 Right Active Shoulder ROM WFL Yes Testing Position Standing Flexion 170 Abduction 180 External Rotation at 0 degrees Abduction 45 PT-OP-M Strength Start: 12/23/23 17:46 Freq: Status: Active Protocol: Document 06/05/24 09:45 DCW (Rec: 06/05/24 09:53 DCW [id number]) Shoulder Strength Shoulder Manual Muscle Testing Left Flexion 3- Fair- Abduction (C5) 3- Fair- External Rotation 3- Fair- PT-OP-Q Treatments Start: 12/23/23 17:46 Freq: Status: Active Protocol: Document 06/05/24 09:46 DCW (Rec: 06/05/24 10:32 DCW [id number]) Gym Equipment Therapeutic Ball Wall Ball Exercise Details Roll ball up wall with both arms, end-range stretch Ball Size/Color Blue - 45cm Body Position Standing Therapeutic Exercises Supine Exercises External Rotation Supine Exercise Name External Rotation - weighted stretch into ER Side left Resistance 3# Serratus Punch Supine Exercise Name Serratus Punch Side bilateral Resistance 3# Reps/Minutes 10 reps Flexion Supine Exercise Name Flexion Side left Resistance 3# Sidelying Exercises Abduction Sidelying Exercise Name Shoulder Abduction Side left Resistance 3# Reps/Minutes several reps External Rotation Sidelying Exercise Name Shoulder ER Side left Resistance 3# DB Reps/Minutes x10 reps Comments improved range Standing Exercises Abduction Standing Exercise Name Abduction Side bilateral Resistance 3# Comments Mirror Flexion Standing Exercise Name Flexion Side bilateral Resistance 3# Comments Mirror PT-OP-R Modalities Start: 01/04/24 10:36 Freq: Status: Active Protocol: Document 01/04/24 09:48 SP (Rec: 01/04/24 10:41 SP [id number]) Hot Pack/Cold Pack Treatment CP Location L shld Patient Position Hooklying Patient Tolerance Good PT-OP-T Assessment and Plan Start: 12/23/23 17:46 Freq: Status: Active Protocol: Document 06/05/24 09:46 DCW (Rec: 06/05/24 10:32 DCW [id number]) Physical Therapy Assessment Impairments Impairments Activity Tolerance,Functional Activities,Functional Mobility ,Pain,ROM,Soft Tissue Mobility ,Strength,Tone Goals One Impairment Pt does not have an appropriate home exercise program Short Term Goal (STG) Pt to be independent and compliant with an appropriate HEP STG Duration Met Three Impairment Pt scores a 90.91% disability on the QuickDASH Short Term Goal (STG) Pt to improve score on the QuickDASH to <50% in order to indicate an increased in ability to perform iALDs independently 04/10/24: 43.18% STG Duration Met Cell Assembly Pinner Goal (LTG) Pt to improve score on the QuickDASH to <25% in order to indicate an increased in ability to perform iALDs independently LTG Duration 07/05/24 Two Impairment Pt unable to perform AROM with right shoulder Short Term Goal (STG) Pt to demonstrate 90? flexion and abduction in right shoulder AROM as progressed within post-op protocol in order to return to prior functional levels STG Duration Met Prison Goal (LTG) Pt to demonstrate 120? flexion and abduction in right shoulder in order to return to prior functional levels LTG Duration 08/05/24 Assessment Summary Assessment Pt progressing well, has made very good improvement in AROM since last prog note, left shoulder flexion has improved from 62?->107?, abduction improved from 61?->92? over past five weeks. Continue to focus on strengthening and functional mobility. Physical Therapy Plan Frequency and Duration Frequency of Treatment 2x/Week Plan of Care Start Date 06/05/24 Plan of Care End Date 08/05/24 Therapeutic Interventions Therapeutic Interventions Home Exercise Program,Joint Mobilizations,Manual Therapy, Neuromuscular Re-education, Patient/Caregiver Education, Self-Care/Home Management,Soft Tissue Mobilization, Therapeutic Activities, Therapeutic Exercises Modalities Cold Pack/Ice Massage,Electric Stimulation,Hot Packs Next Visit Focus/Plan Next Note Type Treatment Note Next Visit Plan Update POC next visits, check added more appts 1x/wk. Continue standing HEP, cues and use mirror reduction [place] compensations. Next: Trial eccentric FF rear facing TB. POC: AROM, shoulder mobility
--- NOTE | 2024-06-05 10:33 | PT.OPPOC ---
Physical, Occupational & Speech Therapy At [facility] Current Diagnoses Pain in left shoulder (06/05/24) Stiffness of left shoulder, not elsewhere classified (06/05/24) Complete rotator cuff tear or rupture of left shoulder, not specified as traumatic (06/05/24) Aftercare following joint replacement surgery (06/05/24) Visit Care Team Role Provider Type Natalie Garcia MD Family Provider Physician Primary Care Provider Specialty: Family Practice Address: [address] [place] [address], [facility] [place], [address] Email: [email or web address] Nils Lopez MD Attending Provider Physician Referring Provider Specialty: Orthopedics Orthopedic Surgery Address: [address] [place] [address], [facility] [address], [place], [address] Email: [email or web address] Plan Of Care PT-OP-B Current Condition Start: 12/23/23 17:46 Freq: Status: Active Protocol: Document 12/23/23 17:00 DCW (Rec: 12/24/23 09:44 DCW [id number]) Current Condition History of Current Condition Onset Date 12/16/23 Current Complaints Right reverse Total shoulder replacement History of Current Condition Pt is a 78 year old female presenting one week s/p right rTSA following failure of conservative treatment of full -thickness supraspinatus and partial-thickness infraspinatus and subscapularis tears. Pt notes her pain is largely gone following surgery. Has already weaned herself off pain pills , and is taking extra-strength tylenol 3x/day. Has been compliant with post-op sling use, only removing for showers . Admits she has done pendulums a few times, but not as frequently as she should be. Pt has been trying really hard to behave myself and follow directions. PT-OP-T Assessment and Plan Start: 12/23/23 17:46 Freq: Status: Active Protocol: Document 06/05/24 09:46 DCW (Rec: 06/05/24 10:32 DCW [id number]) Physical Therapy Assessment Impairments Impairments Activity Tolerance,Functional Activities,Functional Mobility ,Pain,ROM,Soft Tissue Mobility ,Strength,Tone Goals One Impairment Pt does not have an appropriate home exercise program Short Term Goal (STG) Pt to be independent and compliant with an appropriate HEP STG Duration Met Three Impairment Pt scores a 90.91% disability on the QuickDASH Short Term Goal (STG) Pt to improve score on the QuickDASH to <50% in order to indicate an increased in ability to perform iALDs independently 04/10/24: 43.18% STG Duration Met Fdc Goal (LTG) Pt to improve score on the QuickDASH to <25% in order to indicate an increased in ability to perform iALDs independently LTG Duration 07/05/24 Two Impairment Pt unable to perform AROM with right shoulder Short Term Goal (STG) Pt to demonstrate 90? flexion and abduction in right shoulder AROM as progressed within post-op protocol in order to return to prior functional levels STG Duration Met Regulatory Affairs Director Goal (LTG) Pt to demonstrate 120? flexion and abduction in right shoulder in order to return to prior functional levels LTG Duration 08/05/24 Assessment Summary Assessment Pt progressing well, has made very good improvement in AROM since last prog note, left shoulder flexion has improved from 62?->107?, abduction improved from 61?->92? over past five weeks. Continue to focus on strengthening and functional mobility. Physical Therapy Plan Frequency and Duration Frequency of Treatment 2x/Week Plan of Care Start Date 06/05/24 Plan of Care End Date 08/05/24 Therapeutic Interventions Therapeutic Interventions Home Exercise Program,Joint Mobilizations,Manual Therapy, Neuromuscular Re-education, Patient/Caregiver Education, Self-Care/Home Management,Soft Tissue Mobilization, Therapeutic Activities, Therapeutic Exercises Modalities Cold Pack/Ice Massage,Electric Stimulation,Hot Packs Next Visit Focus/Plan Next Note Type Treatment Note Next Visit Plan Update POC next visits, check added more appts 1x/wk. Continue standing HEP, cues and use mirror reduction [place] compensations. Next: Trial eccentric FF rear facing TB. POC: AROM, shoulder mobility Plan of Care Dates Plan of Care Start Date 06/05/24 Plan of Care End Date 08/05/24 Electronically Signed by: Vince Amin, PT 06/05/24 3069 If you are in agreement with this Plan of Care, please return a signed and dated copy. I have reviewed this Plan of Care and certify that the skilled therapy services above are required to meet the patient?s needs. Physician Signature Date Printed Name and Credentials Clinical Instructor Signature Printed Name and Credentials
--- NOTE | 2024-06-13 09:44 | PT.OTN ---
Current Diagnoses Pain in left shoulder (06/13/24) Stiffness of left shoulder, not elsewhere classified (06/13/24) Complete rotator cuff tear or rupture of left shoulder, not specified as traumatic (06/13/24) Aftercare following joint replacement surgery (06/13/24) Physical Therapy Treatment Note PT-OP-A Visit Information Start: 12/23/23 17:46 Freq: Status: Active Protocol: Document 06/13/24 09:06 SP (Rec: 06/13/24 09:48 SP Laptop) Out-Patient Physical Therapy Visit Information Visit Information Visit Type Treatment Note Visit Start Time 09:06 Visit Stop Time 09:44 Visit Number 29 Number of VINE PRUNER Visits 1 Evaluation Information Evaluation Date 12/23/23 Precautions Precautions 12/16/23: s/p reverse L shld Months 3-6: Full ROM, progress to unrestricted lifting Months 6-12: Full ROM, Full weight bearing, no restrictions PT-OP-B Current Condition Start: 12/23/23 17:46 Freq: Status: Active Protocol: Document 12/23/23 17:00 DCW (Rec: 12/24/23 09:44 DCW [id number]) Current Condition History of Current Condition Onset Date 12/16/23 Current Complaints Right reverse Total shoulder replacement History of Current Condition Pt is a 78 year old female presenting one week s/p right rTSA following failure of conservative treatment of full -thickness supraspinatus and partial-thickness infraspinatus and subscapularis tears. Pt notes her pain is largely gone following surgery. Has already weaned herself off pain pills , and is taking extra-strength tylenol 3x/day. Has been compliant with post-op sling use, only removing for showers . Admits she has done pendulums a few times, but not as frequently as she should be. Pt has been trying really hard to behave myself and follow directions. PT-OP-C Subjective Start: 12/23/23 17:46 Freq: Status: Active Protocol: Document 06/13/24 09:06 SP (Rec: 06/13/24 09:48 SP Laptop) OP-PT Subjective Patient Comments Patient Comments Pt reports focusing on strengthen now to lift her R arm overhead to put deodorant on still more effort. PT-OP-K Range of Motion Start: 12/23/23 17:46 Freq: Status: Active Protocol: Document 06/05/24 09:45 DCW (Rec: 06/05/24 09:53 DCW [id number]) Shoulder Goniometric Range of Motion Shoulder Left Active Flexion 107 Abduction 92 External Rotation at 0 degrees Abduction 43 Left Passive Shoulder ROM WFL No Testing Position Supine Flexion 135 Abduction 145 External Rotation at 0 degrees Abduction 53 Right Active Shoulder ROM WFL Yes Testing Position Standing Flexion 170 Abduction 180 External Rotation at 0 degrees Abduction 45 PT-OP-M Strength Start: 12/23/23 17:46 Freq: Status: Active Protocol: Document 06/05/24 09:45 DCW (Rec: 06/05/24 09:53 DCW [id number]) Shoulder Strength Shoulder Manual Muscle Testing Left Flexion 3- Fair- Abduction (C5) 3- Fair- External Rotation 3- Fair- PT-OP-Q Treatments Start: 12/23/23 17:46 Freq: Status: Active Protocol: Document 06/13/24 09:06 SP (Rec: 06/13/24 09:48 SP Laptop) Cardio Equipment Upper Body Ergometer (UBE) Duration (Minutes) 6 RPM 60 Seat Position 7 Height 5.5 Other Fwd/Bkwd every 30 sec Therapeutic Exercises Supine Exercises External Rotation Supine Exercise Name External Rotation - weighted stretch into ER Side left Resistance 3# Reps/Minutes 10 reps Serratus Punch Supine Exercise Name Serratus Punch Side bilateral Resistance 3# Reps/Minutes 2x10 reps Flexion Supine Exercise Name Flexion Side bilateral Resistance 3# DB- individual Reps/Minutes 10 reps Sidelying Exercises HABD Sidelying Exercise Name reviewed Side left Resistance 3# DB Reps/Minutes 10 reps Comments cued scap mm engagement with humeral ER during con/ecc control & stability Flexion Sidelying Exercise Name reviewed Side left Resistance 2# DB Reps/Minutes 10 reps Comments cued maintain above body FF OH & behind body. Abduction Sidelying Exercise Name Shoulder Abduction Side left Resistance 3# DB Reps/Minutes x10 Comments improved self scap add, depression glide for support UR and range progress External Rotation Sidelying Exercise Name Shoulder ER Side left Resistance 3# DB Reps/Minutes x10 reps Comments cued neutral wrist, improved scap and neck corrections Standing Exercises Overhead Press Side bilateral Resistance 3# DB Equipment Used facing wall, glide 5th finger on wall Reps/Minutes 4 reps Comments cued walk dowar Abduction Standing Exercise Name Abduction Side bilateral Resistance 3#> 2# DB Reps/Minutes 6 reps before Comments Mirror- limited range Flexion Standing Exercise Name Flexion Side bilateral Resistance 3# > 2#DB Equipment Used open area Reps/Minutes 6 reps before tires Comments Mirror- limited range Therapeutic Activity Therapeutic Activity on/off floor Comments TIme spent: incorporated with cues for LUE support stand<> BUE WB on floor, improved more fluid movement PT-OP-R Modalities Start: 01/04/24 10:36 Freq: Status: Active Protocol: Document 01/04/24 09:48 SP (Rec: 01/04/24 10:41 SP [id number]) Hot Pack/Cold Pack Treatment CP Location L shld Patient Position Hooklying Patient Tolerance Good PT-OP-T Assessment and Plan Start: 12/23/23 17:46 Freq: Status: Active Protocol: Document 06/13/24 09:06 SP (Rec: 06/13/24 09:48 SP Laptop) Physical Therapy Assessment Goals One Impairment Pt does not have an appropriate home exercise program Short Term Goal (STG) Pt to be independent and compliant with an appropriate HEP STG Duration Met Three Impairment Pt scores a 90.91% disability on the QuickDASH Impairment . Short Term Goal (STG) Pt to improve score on the QuickDASH to <50% in order to indicate an increased in ability to perform iALDs independently 04/10/24: 43.18% STG Duration Met Defensive Fire Control Systems Operator Goal (LTG) Pt to improve score on the QuickDASH to <25% in order to indicate an increased in ability to perform iALDs independently LTG Duration 07/05/24 Two Impairment Pt unable to perform AROM with right shoulder Impairment . Short Term Goal (STG) Pt to demonstrate 90? flexion and abduction in right shoulder AROM as progressed within post-op protocol in order to return to prior functional levels STG Duration Met Defensive Fire Control Systems Operator Goal (LTG) Pt to demonstrate 120? flexion and abduction in right shoulder in order to return to prior functional levels LTG Duration 08/05/24 Assessment Summary Assessment Pt improved performance and encourage HEP on floor for ease and functional use of LUE into daily activities for ADLs as cleaning. Cues for scap stab muscle engagement during HEP and incorporating supine/sidelying with 3# DB to support strengthening standing home as well. Physical Therapy Plan Frequency and Duration Frequency of Treatment 2x/Week Plan of Care Start Date 06/05/24 Plan of Care End Date 08/05/24 Therapeutic Interventions Therapeutic Interventions Home Exercise Program,Joint Mobilizations,Manual Therapy, Neuromuscular Re-education, Patient/Caregiver Education, Self-Care/Home Management,Soft Tissue Mobilization, Therapeutic Activities, Therapeutic Exercises Modalities Cold Pack/Ice Massage,Electric Stimulation,Hot Packs Next Visit Focus/Plan Next Note Type Treatment Note Next Visit Plan Continue standing HEP, cues and use mirror reduction UT compensations. Next: Trial eccentric FF rear facing TB. POC: AROM, shoulder mobility and strengthening
--- NOTE | 2024-06-22 11:31 | PT.OTN ---
Current Diagnoses Pain in left shoulder (06/22/24) Stiffness of left shoulder, not elsewhere classified (06/22/24) Complete rotator cuff tear or rupture of left shoulder, not specified as traumatic (06/22/24) Aftercare following joint replacement surgery (06/22/24) Physical Therapy Treatment Note PT-OP-A Visit Information Start: 12/23/23 17:46 Freq: Status: Active Protocol: Document 06/22/24 10:50 DCW (Rec: 06/22/24 11:31 DCW [id number]) Out-Patient Physical Therapy Visit Information Visit Information Visit Type Treatment Note Visit Start Time 10:50 Visit Stop Time 11:30 Visit Number 30 Number of MANGANESE WHEELER Visits 0 Evaluation Information Evaluation Date 12/23/23 Precautions Precautions 12/16/23: s/p reverse L shld Months 3-6: Full ROM, progress to unrestricted lifting Months 6-12: Full ROM, Full weight bearing, no restrictions PT-OP-B Current Condition Start: 12/23/23 17:46 Freq: Status: Active Protocol: Document 12/23/23 17:00 DCW (Rec: 12/24/23 09:44 DCW [id number]) Current Condition History of Current Condition Onset Date 12/16/23 Current Complaints Right reverse Total shoulder replacement History of Current Condition Pt is a 78 year old female presenting one week s/p right rTSA following failure of conservative treatment of full -thickness supraspinatus and partial-thickness infraspinatus and subscapularis tears. Pt notes her pain is largely gone following surgery. Has already weaned herself off pain pills , and is taking extra-strength tylenol 3x/day. Has been compliant with post-op sling use, only removing for showers . Admits she has done pendulums a few times, but not as frequently as she should be. Pt has been trying really hard to behave myself and follow directions. PT-OP-C Subjective Start: 12/23/23 17:46 Freq: Status: Active Protocol: Document 06/22/24 10:50 DCW (Rec: 06/22/24 11:31 DCW [id number]) OP-PT Subjective Patient Comments Patient Comments It's not strong, but it's moving a lot better. I'm pretty good at stretching to reach something, but lifting any weight is a challenge. PT-OP-K Range of Motion Start: 12/23/23 17:46 Freq: Status: Active Protocol: Document 06/05/24 09:45 DCW (Rec: 06/05/24 09:53 DCW [id number]) Shoulder Goniometric Range of Motion Shoulder Left Active Flexion 107 Abduction 92 External Rotation at 0 degrees Abduction 43 Left Passive Shoulder ROM WFL No Testing Position Supine Flexion 135 Abduction 145 External Rotation at 0 degrees Abduction 53 Right Active Shoulder ROM WFL Yes Testing Position Standing Flexion 170 Abduction 180 External Rotation at 0 degrees Abduction 45 PT-OP-M Strength Start: 12/23/23 17:46 Freq: Status: Active Protocol: Document 06/05/24 09:45 DCW (Rec: 06/05/24 09:53 DCW [id number]) Shoulder Strength Shoulder Manual Muscle Testing Left Flexion 3- Fair- Abduction (C5) 3- Fair- External Rotation 3- Fair- PT-OP-Q Treatments Start: 12/23/23 17:46 Freq: Status: Active Protocol: Document 06/22/24 10:50 DCW (Rec: 06/22/24 11:31 DCW [id number]) Cardio Equipment Upper Body Ergometer (UBE) Duration (Minutes) 6 RPM 60 Seat Position 7 Height 5.5 Other Fwd/Bkwd every 30 sec Gym Equipment Shuttle Rebound Ball Toss Exercise Details Ball Toss Comments Green 500g ball Therapeutic Exercises Supine Exercises External Rotation Supine Exercise Name External Rotation - weighted stretch into ER Side left Resistance 2# Reps/Minutes 10 reps Serratus Punch Supine Exercise Name Serratus Punch Side bilateral Resistance 2# Reps/Minutes 2x10 reps Flexion Supine Exercise Name Flexion Side bilateral Resistance 2# DB- individual Reps/Minutes 10 reps Sidelying Exercises HABD Side left Resistance 2# DB Reps/Minutes 10 reps Comments cued scap mm engagement with humeral ER during con/ecc control & stability Abduction Sidelying Exercise Name Shoulder Abduction Side left Resistance 2# DB Reps/Minutes x10 External Rotation Sidelying Exercise Name Shoulder ER Side left Resistance 2# DB Reps/Minutes x10 reps Standing Exercises Extension Standing Exercise Name Shoulder Extension Side bilateral Resistance Blue Adduction Standing Exercise Name Shoulder Adduction Side left Resistance Blue bicep curl Standing Exercise Name Curl/Reverse Curl Side bilateral Resistance 2# DB Wall Push-ups Standing Exercise Name 1. Wall Push-up: Adriana & W Side bilateral Reps/Minutes x10 reps each position Abduction Standing Exercise Name Abduction Side bilateral Resistance 2# DB Reps/Minutes x10 Comments Mirror- limited range Flexion Standing Exercise Name Flexion Side bilateral Resistance 2#DB Reps/Minutes x10 Comments Mirror- limited range PT-OP-R Modalities Start: 01/04/24 10:36 Freq: Status: Active Protocol: Document 01/04/24 09:48 SP (Rec: 01/04/24 10:41 SP [id number]) Hot Pack/Cold Pack Treatment CP Location L shld Patient Position Hooklying Patient Tolerance Good PT-OP-T Assessment and Plan Start: 12/23/23 17:46 Freq: Status: Active Protocol: Document 06/22/24 10:50 DCW (Rec: 06/22/24 11:31 DCW [id number]) Physical Therapy Assessment Impairments Impairments Activity Tolerance,Functional Activities,Functional Mobility ,Pain,ROM,Soft Tissue Mobility ,Strength,Tone Goals One Impairment Pt does not have an appropriate home exercise program Short Term Goal (STG) Pt to be independent and compliant with an appropriate HEP STG Duration Met Three Impairment Pt scores a 90.91% disability on the QuickDASH Short Term Goal (STG) Pt to improve score on the QuickDASH to <50% in order to indicate an increased in ability to perform iALDs independently 04/10/24: 43.18% STG Duration Met Longterm Goal (LTG) Pt to improve score on the QuickDASH to <25% in order to indicate an increased in ability to perform iALDs independently LTG Duration 07/05/24 Two Impairment Pt unable to perform AROM with right shoulder Short Term Goal (STG) Pt to demonstrate 90? flexion and abduction in right shoulder AROM as progressed within post-op protocol in order to return to prior functional levels STG Duration Met Supervisor Alumin[employer] Boat Assembly Goal (LTG) Pt to demonstrate 120? flexion and abduction in right shoulder in order to return to prior functional levels LTG Duration 08/05/24 Assessment Summary Assessment Pt showing good progress with active ROM, able to tolerate more strengthening exercise. Added ball toss today to work on more quick, reflexive motions, pt tolerated well. Continue to focus on ROM, strengthening, and functional mobility. Physical Therapy Plan Frequency and Duration Frequency of Treatment 2x/Week Plan of Care Start Date 06/05/24 Plan of Care End Date 05/31/25 Therapeutic Interventions Therapeutic Interventions Home Exercise Program,Joint Mobilizations,Manual Therapy, Neuromuscular Re-education, Patient/Caregiver Education, Self-Care/Home Management,Soft Tissue Mobilization, Therapeutic Activities, Therapeutic Exercises Modalities Cold Pack/Ice Massage,Electric Stimulation,Hot Packs Next Visit Focus/Plan Next Note Type Treatment Note Next Visit Plan Continue standing HEP, cues and use mirror reduction UT compensations. Next: Trial eccentric FF rear facing TB. POC: AROM, shoulder mobility and strengthening
--- NOTE | 2024-06-29 10:31 | PT.OTN ---
Current Diagnoses Pain in left shoulder (06/29/24) Stiffness of left shoulder, not elsewhere classified (06/29/24) Complete rotator cuff tear or rupture of left shoulder, not specified as traumatic (06/29/24) Aftercare following joint replacement surgery (06/29/24) Physical Therapy Treatment Note PT-OP-A Visit Information Start: 12/23/23 17:46 Freq: Status: Active Protocol: Document 06/29/24 09:48 PG (Rec: 06/29/24 11:24 PG [id number]) Out-Patient Physical Therapy Visit Information Visit Information Visit Type Treatment Note Visit Note RAFITA Montes De Oca helped lead tx with permission from pt and direct supervision from Latricia LIN Visit Start Time 09:48 Visit Stop Time 10:31 Visit Number 31 Number of FIELD ASSEMBLY SUPERVISOR Visits 1 Precautions Precautions 12/16/23: s/p reverse L shld Months 3-6: Full ROM, progress to unrestricted lifting Months 6-12: Full ROM, Full weight bearing, no restrictions PT-OP-B Current Condition Start: 12/23/23 17:46 Freq: Status: Active Protocol: Document 12/23/23 17:00 DCW (Rec: 12/24/23 09:44 DCW [id number]) Current Condition History of Current Condition Onset Date 12/16/23 Current Complaints Right reverse Total shoulder replacement History of Current Condition Pt is a 78 year old female presenting one week s/p right rTSA following failure of conservative treatment of full -thickness supraspinatus and partial-thickness infraspinatus and subscapularis tears. Pt notes her pain is largely gone following surgery. Has already weaned herself off pain pills , and is taking extra-strength tylenol 3x/day. Has been compliant with post-op sling use, only removing for showers . Admits she has done pendulums a few times, but not as frequently as she should be. Pt has been trying really hard to behave myself and follow directions. PT-OP-C Subjective Start: 12/23/23 17:46 Freq: Status: Active Protocol: Document 06/29/24 09:48 PG (Rec: 06/29/24 11:24 PG [id number]) OP-PT Subjective Patient Comments Patient Comments Feeling good, feels she is able to reach higher/ and in different places [place] each week. No pain or discomfort just limited range and strength. PT-OP-K Range of Motion Start: 12/23/23 17:46 Freq: Status: Active Protocol: Document 06/05/24 09:45 DCW (Rec: 06/05/24 09:53 DCW [id number]) Shoulder Goniometric Range of Motion Shoulder Left Active Flexion 107 Abduction 92 External Rotation at 0 degrees Abduction 43 Left Passive Shoulder ROM WFL No Testing Position Supine Flexion 135 Abduction 145 External Rotation at 0 degrees Abduction 53 Right Active Shoulder ROM WFL Yes Testing Position Standing Flexion 170 Abduction 180 External Rotation at 0 degrees Abduction 45 PT-OP-M Strength Start: 12/23/23 17:46 Freq: Status: Active Protocol: Document 06/05/24 09:45 DCW (Rec: 06/05/24 09:53 DCW [id number]) Shoulder Strength Shoulder Manual Muscle Testing Left Flexion 3- Fair- Abduction (C5) 3- Fair- External Rotation 3- Fair- PT-OP-Q Treatments Start: 12/23/23 17:46 Freq: Status: Active Protocol: Document 06/29/24 09:48 PG (Rec: 06/29/24 11:24 PG [id number]) Cardio Equipment Upper Body Ergometer (UBE) Duration (Minutes) 6 RPM 60 Seat Position 7 Height 5.5 Other Fwd/Bkwd every 30 sec Therapeutic Exercises Supine Exercises Serratus Punch Supine Exercise Name Serratus Punch Resistance 2# > 3# Equipment Used over noodle Reps/Minutes 2x10 reps Over noodle Supine Exercise Name FF, W with ABD/ER Resistance 2#; FF, ABD, ER & AROM; W Equipment Used dumbells Reps/Minutes 10x each > 12-15x; FF, ABD, ER Comments v/c's to keep wrist in neutral , think about reaching top of head with W Standing Exercises External Rotation Standing Exercise Name ER Side bilateral Resistance 2# > 3# weights Equipment Used dumbells Reps/Minutes x10 Comments Visual/ verbal cues for looking up. Wall Push-ups Standing Exercise Name 1. Wall Push-up: Adriana & W Side bilateral Equipment Used close and open chain Reps/Minutes x10 reps each position, took steps back to increase challenge Abduction Standing Exercise Name Abduction; thumbs up, palms down Side bilateral Resistance 2# DB > 3# Equipment Used mirror use, dumbells Reps/Minutes 2#: x10 > x12 - 15, 3# x5 Comments Visual/ verbal cues for looking up. Self-Care/Home Management Treatment Education Patient Education Body Mechanics,Pain Management ,Posture Other Education Reviewed pt's self lumbar stretch to decrease LBP. Educated pt on TA engagement while walking and performing HEP to decrease LBP and prevent increased lumbar lordosis during ADL's. PT-OP-R Modalities Start: 01/04/24 10:36 Freq: Status: Active Protocol: Document 01/04/24 09:48 SP (Rec: 01/04/24 10:41 SP [id number]) Hot Pack/Cold Pack Treatment CP Location L shld Patient Position Hooklying Patient Tolerance Good PT-OP-T Assessment and Plan Start: 12/23/23 17:46 Freq: Status: Active Protocol: Document 06/29/24 09:48 PG (Rec: 06/29/24 11:24 PG [id number]) Physical Therapy Assessment Impairments Impairments Activity Tolerance,Functional Activities,Functional Mobility ,Pain,ROM,Soft Tissue Mobility ,Strength,Tone Goals One Impairment Pt does not have an appropriate home exercise program Short Term Goal (STG) Pt to be independent and compliant with an appropriate HEP STG Duration Met Three Impairment Pt scores a 90.91% disability on the QuickDASH Short Term Goal (STG) Pt to improve score on the QuickDASH to <50% in order to indicate an increased in ability to perform iALDs independently 04/10/24: 43.18% STG Duration Met Stroboscope Operator Goal (LTG) Pt to improve score on the QuickDASH to <25% in order to indicate an increased in ability to perform iALDs independently LTG Duration 07/05/24 Two Impairment Pt unable to perform AROM with right shoulder Short Term Goal (STG) Pt to demonstrate 90? flexion and abduction in right shoulder AROM as progressed within post-op protocol in order to return to prior functional levels STG Duration Met Stroboscope Operator Goal (LTG) Pt to demonstrate 120? flexion and abduction in right shoulder in order to return to prior functional levels LTG Duration 08/05/24 Assessment Summary Assessment Pt tolerated therapeutic exercises to strengthen and increase ROM today with weight and rep progressions. Pt was able to progress from #2 > #3 dumbbells with supine over noodle serratus punches, and standing ER. Trialed increased weight for standing ABD; pt was able to perform low reps but increase in weight prevented pt from obtaining full available ROM. Increased reps with 2# for standing ABD and supine over pool noodle activities. Pt required minimal v/c to keep wrist's neutral during dumbbell activities and to keep head up with standing activities. Educated pt on core engagement with exercises and walking through the community to help decrease low back pain. Physical Therapy Plan Frequency and Duration Frequency of Treatment 2x/Week Plan of Care Start Date 06/05/24 Plan of Care End Date 08/05/24 Therapeutic Interventions Therapeutic Interventions Home Exercise Program,Joint Mobilizations,Manual Therapy, Neuromuscular Re-education, Patient/Caregiver Education, Self-Care/Home Management,Soft Tissue Mobilization, Therapeutic Activities, Therapeutic Exercises Modalities Cold Pack/Ice Massage,Electric Stimulation,Hot Packs Next Visit Focus/Plan Next Note Type Treatment Note Next Visit Plan Continue progressing strength in standing HEP, cues and use mirror reduction [place] compensations. Next: Trial eccentric FF rear facing TB. Recheck progression of HEP POC: AROM, shoulder mobility and strengthening
--- NOTE | 2024-07-05 15:17 | PT.OTN ---
Current Diagnoses Pain in left shoulder (07/05/24) Stiffness of left shoulder, not elsewhere classified (07/05/24) Complete rotator cuff tear or rupture of left shoulder, not specified as traumatic (07/05/24) Aftercare following joint replacement surgery (07/05/24) Physical Therapy Treatment Note PT-OP-A Visit Information Start: 12/23/23 17:46 Freq: Status: Active Protocol: Document 07/05/24 11:43 PG (Rec: 07/05/24 12:32 PG Laptop) Out-Patient Physical Therapy Visit Information Visit Information Visit Type Treatment Note Visit Note RAFITA Montes De Oca helped lead tx with permission from pt and direct supervision from Latricia LIN Visit Start Time 11:43 Visit Stop Time 12:15 Visit Number 32 Number of COMMISSIONER OF OFFICIALS Visits 2 Precautions Precautions 12/16/23: s/p reverse L shld Months 3-6: Full ROM, progress to unrestricted lifting Months 6-12: Full ROM, Full weight bearing, no restrictions PT-OP-B Current Condition Start: 12/23/23 17:46 Freq: Status: Active Protocol: Document 12/23/23 17:00 DCW (Rec: 12/24/23 09:44 DCW [id number]) Current Condition History of Current Condition Onset Date 12/16/23 Current Complaints Right reverse Total shoulder replacement History of Current Condition Pt is a 78 year old female presenting one week s/p right rTSA following failure of conservative treatment of full -thickness supraspinatus and partial-thickness infraspinatus and subscapularis tears. Pt notes her pain is largely gone following surgery. Has already weaned herself off pain pills , and is taking extra-strength tylenol 3x/day. Has been compliant with post-op sling use, only removing for showers . Admits she has done pendulums a few times, but not as frequently as she should be. Pt has been trying really hard to behave myself and follow directions. PT-OP-C Subjective Start: 12/23/23 17:46 Freq: Status: Active Protocol: Document 07/05/24 11:43 PG (Rec: 07/05/24 12:32 PG Laptop) OP-PT Subjective Patient Comments Patient Comments Pt was a little late to tx today due to car trouble. She 's feeling good but would like to be able to gain more [place] range of motion. PT-OP-K Range of Motion Start: 12/23/23 17:46 Freq: Status: Active Protocol: Document 06/05/24 09:45 DCW (Rec: 06/05/24 09:53 DCW [id number]) Shoulder Goniometric Range of Motion Shoulder Left Active Flexion 107 Abduction 92 External Rotation at 0 degrees Abduction 43 Left Passive Shoulder ROM WFL No Testing Position Supine Flexion 135 Abduction 145 External Rotation at 0 degrees Abduction 53 Right Active Shoulder ROM WFL Yes Testing Position Standing Flexion 170 Abduction 180 External Rotation at 0 degrees Abduction 45 PT-OP-M Strength Start: 12/23/23 17:46 Freq: Status: Active Protocol: Document 06/05/24 09:45 DCW (Rec: 06/05/24 09:53 DCW [id number]) Shoulder Strength Shoulder Manual Muscle Testing Left Flexion 3- Fair- Abduction (C5) 3- Fair- External Rotation 3- Fair- PT-OP-Q Treatments Start: 12/23/23 17:46 Freq: Status: Active Protocol: Document 07/05/24 11:43 PG (Rec: 07/05/24 12:32 PG Laptop) Therapeutic Exercises Supine Exercises Serratus Punch Supine Exercise Name Serratus Punch Side bilateral Resistance 3# Equipment Used over noodle Reps/Minutes 8x Over noodle Supine Exercise Name FF, W with ABD/ER Side bilateral Resistance 3#; FF, ABD, ER & AROM; W Equipment Used dumbells Reps/Minutes 8x FF, ABD, ER & 10W Comments v/c's for neutral wrists, think about reaching top of head with W Sitting Exercises TB Eccentric FF & ABD Sitting Exercise Name TB eccentric FF, Scaption, ABD Side left Resistance level 3 (iroquois) Equipment Used lower anchored bands on wall Reps/Minutes 10x each Comments cues for set up and posture Standing Exercises AAROM Standing Exercise Name AAROM Abduction with cane Side left Equipment Used cane Reps/Minutes x5 Comments cued for set up and posture External Rotation Standing Exercise Name ER Side bilateral Resistance 3# weights, dropset to 2# Equipment Used dumbells Reps/Minutes 3#x 5, #2 x 5 Comments Cues for posture, keeping elbows at side, limited ROM in R versus L with 3# Abduction Standing Exercise Name Abduction; thumbs up Side bilateral Resistance 3# Equipment Used mirror use, dumbells Reps/Minutes x5 Wall slides Standing Exercise Name Single scaption Side left Reps/Minutes 5 reps, 10 second hold Comments cued slight discomfort in L bicep/Ant Deltoid Manual Therapy Treatment Consent Patient gave verbal consent for manual Yes treatment Soft Tissue Mobilization Upper Arm Body Location L Biceps, anter/middle deltoid Mobilization Type Rolling Intensity/Depth Moderate Body Position Sidelying Comments MWM: shoulder abduction until end range Joint Mobilizations L scapulothoracic Joint Scapulothoracic Direction Lateral, Inferior Grade II Body Position Sidelying PT-OP-R Modalities Start: 01/04/24 10:36 Freq: Status: Active Protocol: Document 01/04/24 09:48 SP (Rec: 01/04/24 10:41 SP [id number]) Hot Pack/Cold Pack Treatment CP Location L shld Patient Position Hooklying Patient Tolerance Good PT-OP-T Assessment and Plan Start: 12/23/23 17:46 Freq: Status: Active Protocol: Document 07/05/24 11:43 PG (Rec: 07/05/24 12:32 PG Laptop) Physical Therapy Assessment Impairments Impairments Activity Tolerance,Functional Activities,Functional Mobility ,Pain,ROM,Soft Tissue Mobility ,Strength,Tone Goals One Impairment Pt does not have an appropriate home exercise program Short Term Goal (STG) Pt to be independent and compliant with an appropriate HEP STG Duration Met Three Impairment Pt scores a 90.91% disability on the QuickDASH Short Term Goal (STG) Pt to improve score on the QuickDASH to <50% in order to indicate an increased in ability to perform iALDs independently 04/10/24: 43.18% STG Duration Met Splitter Hand Goal (LTG) Pt to improve score on the QuickDASH to <25% in order to indicate an increased in ability to perform iALDs independently LTG Duration 07/05/24 Two Impairment Pt unable to perform AROM with right shoulder Short Term Goal (STG) Pt to demonstrate 90? flexion and abduction in right shoulder AROM as progressed within post-op protocol in order to return to prior functional levels STG Duration Met Splitter Hand Goal (LTG) Pt to demonstrate 120? flexion and abduction in right shoulder in order to return to prior functional levels LTG Duration 08/05/24 Assessment Summary Assessment Treatment was focused on increasing ROM in the L shoulder. Reviewed AAROM exercises in standing against the wall and with a cane also reviewed eccentric FF, Abduction and scaption with a TB . Tolerated manual techniques to help increase ROM and decrease catchy feeling when performing abduction, no significant progression in her range. Educated pt to progress supine on noodle and standing exercises with 3# weights as tolerated. Physical Therapy Plan Frequency and Duration Frequency of Treatment 2x/Week Plan of Care Start Date 06/05/24 Plan of Care End Date 08/05/24 Therapeutic Interventions Therapeutic Interventions Home Exercise Program,Joint Mobilizations,Manual Therapy, Neuromuscular Re-education, Patient/Caregiver Education, Self-Care/Home Management,Soft Tissue Mobilization, Therapeutic Activities, Therapeutic Exercises Modalities Cold Pack/Ice Massage,Electric Stimulation,Hot Packs Next Visit Focus/Plan Next Note Type Treatment Note Next Visit Plan Continue progressing strength in standing HEP, cues and use mirror reduction [place] compensations. Review added eccentric FF, scaption and abduction rear facing TB. Recheck progression of HEP POC: AROM, shoulder mobility and strengthening
--- NOTE | 2024-07-11 10:34 | PT.OTN ---
Current Diagnoses Pain in left shoulder (07/11/24) Stiffness of left shoulder, not elsewhere classified (07/11/24) Complete rotator cuff tear or rupture of left shoulder, not specified as traumatic (07/11/24) Aftercare following joint replacement surgery (07/11/24) Physical Therapy Treatment Note PT-OP-A Visit Information Start: 12/23/23 17:46 Freq: Status: Active Protocol: Document 07/11/24 09:49 DCW (Rec: 07/11/24 10:34 DCW [id number]) Out-Patient Physical Therapy Visit Information Visit Information Visit Type Treatment Note Visit Start Time 09:49 Visit Stop Time 10:30 Visit Number 33 Number of COMPOSITION ROOFER Visits 0 Evaluation Information Evaluation Date 12/23/23 Precautions Precautions 12/16/23: s/p reverse L shld Months 3-6: Full ROM, progress to unrestricted lifting Months 6-12: Full ROM, Full weight bearing, no restrictions PT-OP-B Current Condition Start: 12/23/23 17:46 Freq: Status: Active Protocol: Document 12/23/23 17:00 DCW (Rec: 12/24/23 09:44 DCW [id number]) Current Condition History of Current Condition Onset Date 12/16/23 Current Complaints Right reverse Total shoulder replacement History of Current Condition Pt is a 78 year old female presenting one week s/p right rTSA following failure of conservative treatment of full -thickness supraspinatus and partial-thickness infraspinatus and subscapularis tears. Pt notes her pain is largely gone following surgery. Has already weaned herself off pain pills , and is taking extra-strength tylenol 3x/day. Has been compliant with post-op sling use, only removing for showers . Admits she has done pendulums a few times, but not as frequently as she should be. Pt has been trying really hard to behave myself and follow directions. PT-OP-C Subjective Start: 12/23/23 17:46 Freq: Status: Active Protocol: Document 07/11/24 09:49 DCW (Rec: 07/11/24 10:34 DCW [id number]) OP-PT Subjective Patient Comments Patient Comments I have to admit, I've been very bad about my exercises. PT-OP-K Range of Motion Start: 12/23/23 17:46 Freq: Status: Active Protocol: Document 03/31/25 09:45 DCW (Rec: 06/05/24 09:53 DCW [id number]) Shoulder Goniometric Range of Motion Shoulder Left Active Flexion 107 Abduction 92 External Rotation at 0 degrees Abduction 43 Left Passive Shoulder ROM WFL No Testing Position Supine Flexion 135 Abduction 145 External Rotation at 0 degrees Abduction 53 Right Active Shoulder ROM WFL Yes Testing Position Standing Flexion 170 Abduction 180 External Rotation at 0 degrees Abduction 45 PT-OP-M Strength Start: 12/23/23 17:46 Freq: Status: Active Protocol: Document 06/05/24 09:45 DCW (Rec: 06/05/24 09:53 DCW [id number]) Shoulder Strength Shoulder Manual Muscle Testing Left Flexion 3- Fair- Abduction (C5) 3- Fair- External Rotation 3- Fair- PT-OP-Q Treatments Start: 12/23/23 17:46 Freq: Status: Active Protocol: Document 07/11/24 09:49 DCW (Rec: 07/11/24 10:34 DCW [id number]) Gym Equipment Cable Column (Body Solid) Rows Details cued equal UE use (pt commented use R>L) Resistance 25# Reps/Time 2x10 Lat Pull Down Details cued squeeze shld blades together and downward con > eccentric Resistance 20# x10, 25# x10 Therapeutic Ball Wall Ball Exercise Details Roll ball up wall with both arms, end-range stretch Ball Size/Color Blue - 45cm Body Position Standing Therapeutic Exercises Sitting Exercises Pulleys Sitting Exercise Name Flexion, Abduction Side bilateral Standing Exercises Chest Press Standing Exercise Name Overhead chest press Side bilateral Resistance 2# Equipment Used Mirror Comments Challenging, a lot of [place] compensation bicep curl Standing Exercise Name Curl/Reverse Curl Side bilateral Resistance 4# DB External Rotation Standing Exercise Name ER in 90/90 Side bilateral Resistance [place] Body Blade Standing Exercise Name Body Blade: flexion, abduction Side bilateral Resistance Yellow blade Equipment Used front mirror used Comments shld level IR LUE Standing Exercise Name IR at 90/90 Side bilateral Equipment Used Orange_>[place] Wall Push-ups Standing Exercise Name Wall Push-up: Adriana & W Side bilateral Reps/Minutes x10 reps each position, took steps back to increase challenge Abduction Standing Exercise Name Abduction; thumbs up Side bilateral Resistance 2# Equipment Used mirror use, dumbbells Reps/Minutes x10 Flexion Standing Exercise Name Flexion Side bilateral Resistance 2# Equipment Used mirror use, dumbbells Reps/Minutes x10 PT-OP-R Modalities Start: 01/04/24 10:36 Freq: Status: Active Protocol: Document 01/04/24 09:48 SP (Rec: 01/04/24 10:41 SP [id number]) Hot Pack/Cold Pack Treatment CP Location L shld Patient Position Hooklying Patient Tolerance Good PT-OP-T Assessment and Plan Start: 12/23/23 17:46 Freq: Status: Active Protocol: Document 07/11/24 09:49 DCW (Rec: 07/11/24 10:34 DCW [id number]) Physical Therapy Assessment Impairments Impairments Activity Tolerance,Functional Activities,Functional Mobility ,Pain,ROM,Soft Tissue Mobility ,Strength,Tone Goals One Impairment Pt does not have an appropriate home exercise program Short Term Goal (STG) Pt to be independent and compliant with an appropriate HEP STG Duration Met Three Impairment Pt scores a 90.91% disability on the QuickDASH Short Term Goal (STG) Pt to improve score on the QuickDASH to <50% in order to indicate an increased in ability to perform iALDs independently 04/10/24: 43.18% STG Duration Met Storage Architect Goal (LTG) Pt to improve score on the QuickDASH to <25% in order to indicate an increased in ability to perform iALDs independently LTG Duration 07/05/24 Two Impairment Pt unable to perform AROM with right shoulder Short Term Goal (STG) Pt to demonstrate 90? flexion and abduction in right shoulder AROM as progressed within post-op protocol in order to return to prior functional levels STG Duration Met Storage Architect Goal (LTG) Pt to demonstrate 120? flexion and abduction in right shoulder in order to return to prior functional levels LTG Duration 08/05/24 Assessment Summary Assessment Pt continues to be frustrated by perceived lack of ROM and strength. Is actually doing better, PROM significantly improved using pulleys, AROM continues to slowly improve as well. Continue to focus on joint mobility and strengthening Physical Therapy Plan Frequency and Duration Frequency of Treatment 2x/Week Plan of Care Start Date 06/05/24 Plan of Care End Date 08/05/24 Therapeutic Interventions Therapeutic Interventions Home Exercise Program,Joint Mobilizations,Manual Therapy, Neuromuscular Re-education, Patient/Caregiver Education, Self-Care/Home Management,Soft Tissue Mobilization, Therapeutic Activities, Therapeutic Exercises Modalities Cold Pack/Ice Massage,Electric Stimulation,Hot Packs Next Visit Focus/Plan Next Note Type Progress Note Next Visit Plan New POC
--- NOTE | 2024-08-02 10:31 | PT.OTN ---
Current Diagnoses Pain in left shoulder (08/02/24) Stiffness of left shoulder, not elsewhere classified (08/02/24) Complete rotator cuff tear or rupture of left shoulder, not specified as traumatic (08/02/24) Aftercare following joint replacement surgery (08/02/24) Physical Therapy Treatment Note PT-OP-A Visit Information Start: 12/23/23 17:46 Freq: Status: Active Protocol: Document 08/02/24 09:45 DCW (Rec: 08/02/24 10:31 DCW [id number]) Out-Patient Physical Therapy Visit Information Visit Information Visit Type Progress Note Visit Start Time 09:45 Visit Stop Time 10:30 Visit Number 34 Number of PARIMUTUEL TICKET SELLER Visits 0 Evaluation Information Evaluation Date 12/23/23 Precautions Precautions 12/16/23: s/p reverse L shld Months 3-6: Full ROM, progress to unrestricted lifting Months 6-12: Full ROM, Full weight bearing, no restrictions PT-OP-B Current Condition Start: 12/23/23 17:46 Freq: Status: Active Protocol: Document 12/23/23 17:00 DCW (Rec: 12/24/23 09:44 DCW [id number]) Current Condition History of Current Condition Onset Date 12/16/23 Current Complaints Right reverse Total shoulder replacement History of Current Condition Pt is a 78 year old female presenting one week s/p right rTSA following failure of conservative treatment of full -thickness supraspinatus and partial-thickness infraspinatus and subscapularis tears. Pt notes her pain is largely gone following surgery. Has already weaned herself off pain pills , and is taking extra-strength tylenol 3x/day. Has been compliant with post-op sling use, only removing for showers . Admits she has done pendulums a few times, but not as frequently as she should be. Pt has been trying really hard to behave myself and follow directions. PT-OP-C Subjective Start: 12/23/23 17:46 Freq: Status: Active Protocol: Document 08/02/24 09:45 DCW (Rec: 08/02/24 10:31 DCW [id number]) OP-PT Subjective Patient Comments Patient Comments Pt returns today from her trip to [facility], did a lot of walking, admits she didn't do a whole lot with her arms. PT-OP-K Range of Motion Start: 12/23/23 17:46 Freq: Status: Active Protocol: Document 08/02/24 09:45 DCW (Rec: 08/02/24 09:54 DCW [id number]) Shoulder Goniometric Range of Motion Shoulder Left Active Testing Position Standing Flexion 120 Abduction 118 External Rotation at 0 degrees Abduction 45 Left Passive Shoulder ROM WFL No Testing Position Supine Flexion 136 Abduction 160 External Rotation at 0 degrees Abduction 54 PT-OP-M Strength Start: 12/23/23 17:46 Freq: Status: Active Protocol: Document 08/02/24 09:45 DCW (Rec: 08/02/24 09:54 DCW [id number]) Shoulder Strength Shoulder Manual Muscle Testing Right Flexion 4- Good- Abduction (C5) 4- Good- External Rotation 4+ Good+ Internal Rotation 4- Good- Left Flexion 3- Fair- Abduction (C5) 3- Fair- External Rotation 3- Fair- PT-OP-Q Treatments Start: 12/23/23 17:46 Freq: Status: Active Protocol: Document 08/02/24 09:45 DCW (Rec: 08/02/24 10:31 DCW [id number]) Gym Equipment Cable Column (Body Solid) Rows Resistance 25# Reps/Time 2x10 Lat Pull Down Resistance 25# Reps/Time 2x10 Therapeutic Ball Wall Ball Exercise Details Roll ball up wall with both arms, end-range stretch Ball Size/Color Blue - 45cm Body Position Standing Therapeutic Exercises Sitting Exercises Pulleys Sitting Exercise Name Flexion, Abduction Side bilateral Standing Exercises Extension Standing Exercise Name Shoulder Extension Side bilateral Resistance Blue Adduction Standing Exercise Name Shoulder Adduction Side bilateral Resistance Blue Abduction Standing Exercise Name Abduction Side bilateral Resistance 2# Equipment Used mirror use, dumbbells Reps/Minutes x10 Flexion Standing Exercise Name Flexion Side bilateral Resistance 2# Equipment Used mirror use, dumbbells Reps/Minutes x10 PT-OP-R Modalities Start: 01/04/24 10:36 Freq: Status: Active Protocol: Document 01/04/24 09:48 SP (Rec: 01/04/24 10:41 SP [id number]) Hot Pack/Cold Pack Treatment CP Location L shld Patient Position Hooklying Patient Tolerance Good PT-OP-T Assessment and Plan Start: 12/23/23 17:46 Freq: Status: Active Protocol: Document 08/02/24 09:45 DCW (Rec: 08/02/24 10:31 [facility] [id number]) Physical Therapy Assessment Impairments Impairments Activity Tolerance,Functional Activities,Functional Mobility ,Pain,ROM,Soft Tissue Mobility ,Strength,Tone Goals One Impairment Pt does not have an appropriate home exercise program Short Term Goal (STG) Pt to be independent and compliant with an appropriate HEP STG Duration Met Three Impairment Pt scores a 90.91% disability on the QuickDASH Short Term Goal (STG) Pt to improve score on the QuickDASH to <50% in order to indicate an increased in ability to perform iALDs independently 04/10/24: 43.18% STG Duration Met Wine Manager Goal (LTG) Pt to improve score on the QuickDASH to <25% in order to indicate an increased in ability to perform iALDs independently LTG Duration 09/04/24 Two Impairment Pt unable to perform AROM with left shoulder Short Term Goal (STG) Pt to demonstrate 90? flexion and abduction in left shoulder AROM as progressed within post-op protocol in order to return to prior functional levels STG Duration Met Wine Manager Goal (LTG) Pt to demonstrate 120? flexion and abduction in left shoulder in order to return to prior functional levels LTG Duration 09/04/24 - nearly met Assessment Summary Assessment Pt showing very good improvement with ROM, strength still biggest limiting factor . Pt likely approaching progress plateau with ROM secondary to limitations following rTSA, will still likely continue to benefit from focus on strengthening and return to prior level of function. Physical Therapy Plan Frequency and Duration Frequency of Treatment 1x/Week Plan of Care Start Date 08/02/24 Plan of Care End Date 09/04/24 Therapeutic Interventions Therapeutic Interventions Home Exercise Program,Joint Mobilizations,Manual Therapy, Neuromuscular Re-education, Patient/Caregiver Education, Self-Care/Home Management,Soft Tissue Mobilization, Therapeutic Activities, Therapeutic Exercises Modalities Cold Pack/Ice Massage,Electric Stimulation,Hot Packs Next Visit Focus/Plan Next Note Type Treatment Note Next Visit Plan Progress strength and HEP, review prior exercises
--- NOTE | 2024-08-02 10:32 | PT.OPPOC ---
Physical, Occupational & Speech Therapy At [facility] Current Diagnoses Pain in left shoulder (08/02/24) Stiffness of left shoulder, not elsewhere classified (08/02/24) Complete rotator cuff tear or rupture of left shoulder, not specified as traumatic (08/02/24) Aftercare following joint replacement surgery (08/02/24) Visit Care Team Role Provider Type Natalie Garcia MD Family Provider Physician Primary Care Provider Specialty: Family Practice Address: [address] [place] [address], [facility] [place], [address] Email: [email or web address] Friend Nils Lopez MD Attending Provider Physician Referring Provider Specialty: Orthopedics Orthopedic Surgery Address: [address] [place] [address], [facility] [address], [place], [address] Email: [email or web address] Plan Of Care PT-OP-B Current Condition Start: 12/23/23 17:46 Freq: Status: Active Protocol: Document 12/23/23 17:00 DCW (Rec: 12/24/23 09:44 DCW [id number]) Current Condition History of Current Condition Onset Date 12/16/23 Current Complaints Right reverse Total shoulder replacement History of Current Condition Pt is a 78 year old female presenting one week s/p right rTSA following failure of conservative treatment of full -thickness supraspinatus and partial-thickness infraspinatus and subscapularis tears. Pt notes her pain is largely gone following surgery. Has already weaned herself off pain pills , and is taking extra-strength tylenol 3x/day. Has been compliant with post-op sling use, only removing for showers . Admits she has done pendulums a few times, but not as frequently as she should be. Pt has been trying really hard to behave myself and follow directions. PT-OP-T Assessment and Plan Start: 12/23/23 17:46 Freq: Status: Active Protocol: Document 08/02/24 09:45 DCW (Rec: 08/02/24 10:31 DCW [id number]) Physical Therapy Assessment Impairments Impairments Activity Tolerance,Functional Activities,Functional Mobility ,Pain,ROM,Soft Tissue Mobility ,Strength,Tone Goals One Impairment Pt does not have an appropriate home exercise program Short Term Goal (STG) Pt to be independent and compliant with an appropriate HEP STG Duration Met Three Impairment Pt scores a 90.91% disability on the QuickDASH Short Term Goal (STG) Pt to improve score on the QuickDASH to <50% in order to indicate an increased in ability to perform iALDs independently 04/10/24: 43.18% STG Duration Met Assisted Goal (LTG) Pt to improve score on the QuickDASH to <25% in order to indicate an increased in ability to perform iALDs independently LTG Duration 09/04/24 Two Impairment Pt unable to perform AROM with left shoulder Short Term Goal (STG) Pt to demonstrate 90? flexion and abduction in left shoulder AROM as progressed within post-op protocol in order to return to prior functional levels STG Duration Met Assisted Goal (LTG) Pt to demonstrate 120? flexion and abduction in left shoulder in order to return to prior functional levels LTG Duration 09/04/24 - nearly met Assessment Summary Assessment Pt showing very good improvement with ROM, strength still biggest limiting factor . Pt likely approaching progress plateau with ROM secondary to limitations following rTSA, will still likely continue to benefit from focus on strengthening and return to prior level of function. Physical Therapy Plan Frequency and Duration Frequency of Treatment 1x/Week Plan of Care Start Date 08/02/24 Plan of Care End Date 09/04/24 Therapeutic Interventions Therapeutic Interventions Home Exercise Program,Joint Mobilizations,Manual Therapy, Neuromuscular Re-education, Patient/Caregiver Education, Self-Care/Home Management,Soft Tissue Mobilization, Therapeutic Activities, Therapeutic Exercises Modalities Cold Pack/Ice Massage,Electric Stimulation,Hot Packs Next Visit Focus/Plan Next Note Type Treatment Note Next Visit Plan Progress strength and HEP, review prior exercises Plan of Care Dates Plan of Care Start Date 08/02/24 Plan of Care End Date 09/04/24 Electronically Signed by: Vince Amin, PT 08/02/24 [id number] If you are in agreement with this Plan of Care, please return a signed and dated copy. I have reviewed this Plan of Care and certify that the skilled therapy services above are required to meet the patient?s needs. Physician Signature Date Printed Name and Credentials Clinical Instructor Signature Printed Name and Credentials
--- NOTE | 2024-08-09 10:28 | PT.OTN ---
Current Diagnoses Pain in left shoulder (08/09/24) Stiffness of left shoulder, not elsewhere classified (08/09/24) Complete rotator cuff tear or rupture of left shoulder, not specified as traumatic (08/09/24) Aftercare following joint replacement surgery (08/09/24) Physical Therapy Treatment Note PT-OP-A Visit Information Start: 12/23/23 17:46 Freq: Status: Active Protocol: Document 08/09/24 09:49 SP (Rec: 08/09/24 10:34 SP [id number]) Out-Patient Physical Therapy Visit Information Visit Information Visit Type Treatment Note Visit Start Time 09:49 Visit Stop Time 10:28 Visit Number 35 (2/10 with PN,3 visits left) Number of SURVEILLANCE SPECIALIST Visits 1 Evaluation Information Evaluation Date 12/23/23 Precautions Precautions 12/16/23: s/p reverse L shld Months 3-6: Full ROM, progress to unrestricted lifting Months 6-12: Full ROM, Full weight bearing, no restrictions PT-OP-B Current Condition Start: 12/23/23 17:46 Freq: Status: Active Protocol: Document 12/23/23 17:00 DCW (Rec: 12/24/23 09:44 DCW [id number]) Current Condition History of Current Condition Onset Date 12/16/23 Current Complaints Right reverse Total shoulder replacement History of Current Pt is a 78 year old female presenting one week s/p Condition right rTSA following failure of conservative treatment of full-thickness supraspinatus and partial-thickness infraspinatus and subscapularis tears. Pt notes her pain is largely gone following surgery. Has already weaned herself off pain pills, and is taking extra- strength tylenol 3x/day. Has been compliant with post- op sling use, only removing for showers. Admits she has done pendulums a few times, but not as frequently as she should be. Pt has been trying really hard to behave myself and follow directions. PT-OP-C Subjective Start: 12/23/23 17:46 Freq: Status: Active Protocol: Document 08/09/24 09:49 SP (Rec: 08/09/24 10:34 SP [id number]) OP-PT Subjective Patient Comments Patient Comments Pt reports felt fine after last tx. Has notes in house to help be compliant with HEP, not as much as wants to, still lacking strength and little more stretching like wall needs to do more of. She is going to check [employer] to see if can start her senior free membership to incorporate cable [place] AAROM and strength as well. PT-OP-K Range of Motion Start: 12/23/23 17:46 Freq: Status: Active Protocol: Document 08/02/24 09:45 DCW (Rec: 08/02/24 09:54 DCW [id number]) Shoulder Goniometric Range of Motion Shoulder Left Active Testing Position Standing Flexion 120 Abduction 118 External Rotation at 45 0 degrees Abduction Left Passive Shoulder ROM WFL No Testing Position Supine Flexion 136 Abduction 160 External Rotation at 54 0 degrees Abduction PT-OP-M Strength Start: 12/23/23 17:46 Freq: Status: Active Protocol: Document 08/02/24 09:45 DCW (Rec: 08/02/24 09:54 DCW [id number]) Shoulder Strength Shoulder Manual Muscle Testing Right Flexion 4- Good- Abduction (C5) 4- Good- External Rotation 4+ Good+ Internal Rotation 4- Good- Left Flexion 3- Fair- Abduction (C5) 3- Fair- External Rotation 3- Fair- PT-OP-Q Treatments Start: 12/23/23 17:46 Freq: Status: Active Protocol: Document 08/09/24 09:49 SP (Rec: 08/09/24 10:34 SP [id number]) Cardio Equipment Upper Body Ergometer (UBE) Duration (Minutes) 6 RPM 60 Seat Position 9 Height 2.5 seated (FYI-5.5 past standing) Other 2 min fwd, 2min bwd then 30 sec fwd/bwd Gym Equipment Cable Column (Body Solid) Rows Details pause Rhomboid engagement when pull back before return front Resistance 25# Reps/Time 2x15 Lat Pull Down Details pause LT engagement when pull down before return OH stretch Resistance 25# Reps/Time 2x15 Therapeutic Ball Wall Ball Exercise Details Roll ball up wall with both arms, end-range stretch Ball Size/Color Blue - 45cm Body Position Standing Therapeutic Exercises Sidelying Exercises HABD Side left Resistance 2# DB Reps/Minutes 15 reps (midrange> full range able) Comments impr scap mm engagement with humeral ER during con/ecc control & stability Flexion Sidelying Exercise reviewed Name Side left Resistance 2# DB Reps/Minutes 4 reps x2 sets Comments cued maintain hip height Abduction Sidelying Exercise Shoulder Abduction- 125 deg Name Side left Resistance 2# DB Reps/Minutes x15 reps Comments cued slow External Rotation Sidelying Exercise Shoulder ER Name Side left Resistance 3# DB Reps/Minutes x15 reps Comments good form- neutral wrist, scap stable, range can perform-mm quiver Standing Exercises Extension Standing Exercise Shoulder Extension Name Side bilateral Resistance TB #4 Blue (latex [place]ne[place] green home)- anchored high Reps/Minutes 15 reps Comments good form Adduction Standing Exercise Shoulder Adduction Name Side bilateral Resistance TB #4 Blue (latex [employer] green home)- anchored high Reps/Minutes 15 reps Comments cued retraction/open chest during pull sink stretch Standing Exercise reviewed past/self activity Name Side bilateral Equipment Used TM rail Reps/Minutes 30 sec Comments cued chest toward floor for FF stretch/AAROM Abduction Standing Exercise Abduction (approx 80-85 deg 1st rep) last 2 ex of tx 6/ 06/30 Side bilateral Resistance 2# DB Equipment Used mirror use, dumbbells Reps/Minutes x10 total Comments cued level shld, tends to elevate Flexion Standing Exercise Flexion ( L 108 deg- 2nd rep) last 2 ex of tx 08/09/24 Name Side bilateral Resistance 2# DB Srini together Equipment Used mirror use, dumbbells Reps/Minutes 4 reps Comments cued elongated posture PT-OP-R Modalities Start: 01/04/24 10:36 Freq: Status: Active Protocol: Document 01/04/24 09:48 SP (Rec: 01/04/24 10:41 SP [id number]) Hot Pack/Cold Pack Treatment CP Location L shld Patient Position Hooklying Patient Tolerance Good PT-OP-T Assessment and Plan Start: 12/23/23 17:46 Freq: Status: Active Protocol: Document 08/09/24 09:49 SP (Rec: 08/09/24 10:34 SP [id number]) Physical Therapy Assessment Goals One Impairment Pt does not have an appropriate home exercise program Short Term Goal (STG Pt to be independent and compliant with an appropriate ) HEP STG Duration Met Three Impairment Pt scores a 90.91% disability on the QuickDASH Short Term Goal (STG Pt to improve score on the QuickDASH to <50% in order ) to indicate an increased in ability to perform iALDs independently 04/10/24: 43.18% STG Duration Met Rein[employer] Erector Goal (LTG) Pt to improve score on the QuickDASH to <25% in order to indicate an increased in ability to perform iALDs independently LTG Duration 09/04/24 Two Impairment Pt unable to perform AROM with left shoulder Short Term Goal (STG Pt to demonstrate 90? flexion and abduction in left ) shoulder AROM as progressed within post-op protocol in order to return to prior functional levels STG Duration Met Shelter Goal (LTG) Pt to demonstrate 120? flexion and abduction in left shoulder in order to return to prior functional levels LTG Duration 09/04/24 - nearly met Assessment Summary Assessment Pt good effort, started UBE and SL FF, HABD and ABD warm up to progress assisted OH ROM before strengthening in standing continue 2# DB tolerance and progresed range, tires with reps quickly. Cues for elongated posture, use mirror for self feedback corrections decrease UT compensations. Physical Therapy Plan Frequency and Duration Frequency of 1x/Week Treatment Plan of Care Start 08/02/24 Date Plan of Care End 09/04/24 Date Therapeutic Interventions Therapeutic Home Exercise Program,Joint Mobilizations,Manual Interventions Therapy,Neuromuscular Re-education,Patient/Caregiver Education,Self-Care/Home Management,Soft Tissue Mobilization,Therapeutic Activities,Therapeutic Exercises Modalities Cold Pack/Ice Massage,Electric Stimulation,Hot Packs Next Visit Focus/Plan Next Note Type Treatment Note Next Visit Plan 3 more appts scheduled with PT. POC: Progress strength and HEP, review prior exercises
== END 2024-08-21 10:00 | disposition home or self-care (01) ==
LOC: PHYS 09:45
PROVIDERS: Family Provider Family Medicine; PCP Family Medicine; Referring Provider Orthopaedic Surgery; Visit Provider Orthopaedic Surgery
DX: M75.122 Complete rotator cuff tear or rupture of left shoulder, not specified as traumatic (principal); M25.512 Pain in left shoulder; M25.612 Stiffness of left shoulder, not elsewhere classified; Z47.1 Aftercare following joint replacement surgery
CPT/HCPCS: 97110; 97140; 97161; 97530

== ENCOUNTER → 2024-12-22 15:41 | Outpatient (CLI) | payer MEDICARE, OTHER, SELFPAY ==
--- NOTE | 2024-12-22 15:43 | DI.MG.S_ITS ---
MM screening mammo BI: 12/22/2024. BI-RADS: 2 CLINICAL: 79-year old female for bilateral screening mammogram. Tyrer-Cuzick lifetime risk of 5.8%. Current reported family history of breast cancer: mother. PRIOR EXAMS 02/25/2024, 11/02/2023, 09/29/2022, 03/10/2021. MAMMOGRAPHY TECHNIQUE: 2D and 3D (tomosynthesis) digital mammographic views obtained, with additional images as needed for full coverage. Current study was also evaluated with a Computer Aided Detection (CAD) system. DENSITY C. The breasts are heterogeneously dense, which may obscure small masses. MAMMOGRAPHY FINDINGS Bilateral: Benign-appearing calcifications noted. There are no suspicious masses, calcifications, or other findings in the breast. IMPRESSION: * No evidence of malignancy with benign findings. RECOMMENDATIONS Bilateral * Annual screening mammography. OVERALL ASSESSMENT CATEGORY BI-RADS-2: Benign. The [employer] recommends annual screening mammography beginning at age 40 for women with average risk of breast cancer. ELECTRONICALLY SIGNED: Columba Aleman M.D. on 12/24/2024 at 10:46:13 PM PT Interpreting Station ID: [id number]
== END ==
LOC: MAMMO 15:42
PROVIDERS: Family Provider Family Medicine; PCP Family Medicine; Referring Provider Family Medicine; Visit Provider Family Medicine
DX: Z12.31 Encounter for screening mammogram for malignant neoplasm of breast (principal); R92.1 Mammographic calcification found on diagnostic imaging of breast; R92.333 Mammographic heterogeneous density, bilateral breasts; Z80.3 Family history of malignant neoplasm of breast
CPT/HCPCS: 77063; 77067

== ENCOUNTER → 2025-02-13 09:57 | Outpatient (CLI) | payer MEDICARE, OTHER, SELFPAY | LOC: PHYS 09:58 | PROVIDERS: Family Provider Family Medicine; PCP Family Medicine; Referring Provider Family Medicine; Visit Provider Family Medicine | DX: Z13.89 Encounter for screening for other disorder (principal) ==